=== PATIENT | female | born 1940 | race Caucasian/White ===

== ENCOUNTER → 2018-07-22 15:06 | Outpatient (CLI) | payer MEDICARE, OTHER, SELFPAY ==
--- NOTE | 2018-07-22 | DI.RAD.S_ITS ---
PROCEDURE: XR SHOULDER RT MIN 2V INDICATIONS: Right Shoulder Pain Acute TECHNIQUE: 3 views of the shoulder were acquired. COMPARISON: [facility], [facility], SHOULDER MIN 2VW (RT), 10/26/2013, 8:45. FINDINGS: Bones: No fractures or dislocations. No suspicious bony lesions. Visualized ribs appear intact. Soft tissues: No suspicious soft tissue calcifications. IMPRESSION: Mild a.c. joint osteoarthritis. Dictated by: Oliver Staton M.D. on 07/22/2018 at 15:35 Approved by: Oliver Staton M.D. on 07/22/2018 at 15:35
== END ==
PROVIDERS: PCP Internal Medicine; Visit Provider Internal Medicine
DX: M25.511 Pain in right shoulder (principal); M19.011 Primary osteoarthritis, right shoulder
CPT/HCPCS: 73030

== ENCOUNTER 2018-09-29 12:32 | Inpatient (IN) | payer MEDICARE, OTHER, SELFPAY ==
[2018-09-29] VITALS (8 sets, daily range): BP systolic 107–160; BP diastolic 53–143; PULSE 79–106; RESP 16–20; TEMP 36.8–36.9; O2SAT 79–97; BMI 20.6
--- NOTE | 2018-09-29 12:33 | ED_ITS ---
HPI - Fall <NIRMAL Russ - Last Filed: 09/29/18 21:56> General Chief Complaint: Fall Stated Complaint: GLF Time Seen by Provider: 09/29/18 12:32 Source: patient Mode of arrival: ambulatory Limitations: no limitations History of Present Illness HPI Narrative: 77-year-old female with history of rheumatoid arthritis here for complaint of pain to her left ribcage into her left hip. She had a ground level fall earlier today where she stumbled tripped over some clothes on the ground while she was making the bed landing on her left hip and her left ribcage area. She states she may have hit her head but she states she does not have any pain and she did not hit her head hard. Pain is limited to the left ribcage and to the left hip area. She denies any other injuries or concerns at this point. No loss of conscious. No nausea vomiting. MD complaint: fall Fall from: standing Related Data Home Medications Medication Instructions Recorded Confirmed hydrocodone-acetaminophen 1 tab PO Q4H PRN 09/29/18 09/29/18 methotrexate sodium 0.8 ml IM QWEEK 09/29/18 09/29/18 nitrofurantoin macrocrystal 100 mg PO Q OTHER DAY 09/29/18 09/29/18 nystatin 1 applic TOPICAL BID 09/29/18 09/29/18 omeprazole 40 mg PO DAILY 09/29/18 09/29/18 ondansetron 4 mg PO Q4H PRN 09/29/18 09/29/18 spironolactone 100 mg PO QAM 09/29/18 09/29/18 Allergies Allergy/AdvReac Type Severity Reaction Status Date / Time meperidine [MEPERIDINE] Allergy Unknown VOMITING Verified 09/29/18 13:53 oxycodone [OXYCODONE] AdvReac Unknown NAUSEA Verified 09/29/18 13:53 Review of Systems <NIRMAL Russ - Last Filed: 09/29/18 21:56> Constitutional Denies chills, Denies fever(s), Denies lethargy and Denies weakness Eyes Denies change in vision, Denies eye discharge, Denies irritation and Denies loss of vision ENT Ears, Nose, Mouth, and Throat: Denies change in voice, Denies neck pain and Denies sore throat Cardiovascular Denies chest pain, Denies irregular heart rhythm, Denies lightheadedness, Denies palpitations, Denies dyspnea, Denies dyspnea on exertion and Denies orthopnea Respiratory Denies cough, Denies dyspnea, Denies dyspnea on exertion and Denies wheezing Gastrointestinal Gastrointestinal: Denies abdominal pain, Denies change in bowel habits, Denies diarrhea, Denies nausea and Denies vomiting Genitourinary Denies hematuria, Denies flank pain, Denies urinary incontinence and Denies urinary urgency Musculoskeletal Denies neck pain Comments: Left ribcage pain and left hip pain status post fall Integumentary/Breasts Denies pruritus, Denies erythema, Denies rash and Denies wounds Neurologic Denies confusion, Denies loss of vision and Denies weakness Psychiatric Denies anxiety, Denies confusion, Denies depression, Denies homicidal ideation and Denies suicidal ideation Endocrine Denies palpitations Hematologic/Lymphatic Denies easy bruising Allergic/Immunologic Denies wheezing Exam <NIRMAL Russ - Last Filed: 09/29/18 21:56> Initial Vital Signs Initial Vital Signs: Vital Signs Temperature 98.5 F 09/29/18 12:35 Pulse Rate 98 H 09/29/18 12:35 Respiratory Rate 20 09/29/18 12:35 Blood Pressure 160/143 H 09/29/18 12:35 Pulse Oximetry 97 09/29/18 12:35 Const General: cooperative and well developed Nutritional Appearance: well nourished Orientation: alert, awake, oriented x3 and not confused [facility] Head: normal to inspection, normocephalic and atraumatic Face and sinus: normal facial exam Mouth: oral mucosae normal and moist mucous membranes Eyes Conjunctivae: conjunctivae normal Sclera: sclerae normal Pupils: PERRL EOM: EOM intact bilaterally Neck Neck: normal visual inspection, trachea midline, No lymphadenopathy, No midline deformity and No JVD Lymphatic: No lymphedema Resp Effort & Inspection: normal respiratory effort, able to speak in complete sentences, no respiratory distress and no use of accessory muscles Auscultation: clear to auscultation bilaterally, no rales, no rhonchi and no wheezes Cardio Rate: regular rate Rhythm: regular rhythm Heart Sounds: no click, no gallops, no murmurs and no rubs Pulses: normal peripheral pulses GI Inspection: non-distended Palpation: soft, no hepatosplenomegaly, No guarding, No pulsatile mass and No tender Auscultation: normal bowel sounds Skin General: no rashes or lesions noted, No jaundice and No petechiae Neuro General: alert, oriented x3, gait normal and no focal motor deficits Speech: speech normal Extrem Other: Tenderness on palpation to the left lateral rib cage. No open lesions. No ecchymosis no swelling and no deformities. Left hip and left thigh area with no signs of trauma. No ecchymosis. No swelling. No deformities. Distal sensation is intact. Distal range of motion is intact. Distal pulses are intact. <Shaye Gaona DO - Last Filed: 09/30/18 19:39> Initial Vital Signs Initial Vital Signs: Vital Signs Temperature 98.5 F 09/29/18 12:35 Pulse Rate 98 H 09/29/18 12:35 Respiratory Rate 20 09/29/18 12:35 Blood Pressure 160/143 H 09/29/18 12:35 Pulse Oximetry 97 09/29/18 12:35 Course <NIRMAL Russ - Last Filed: 09/29/18 21:56> Orders Ordered: Acetaminophen (Tylenol) 650 mg PO Q6HR PRN PRN Reason: As Needed for Fever/Mild Pain Hydrocodone Bitart/Acetaminophen ([place] 10/325) 1 tab PO Q4H PRN PRN Reason: Back Pain Last Admin: 09/30/18 15:51 Dose: 1 tab Admin: 09/30/18 11:44 Dose: 1 tab Admin: 09/30/18 04:52 Dose: 1 tab Admin: 09/29/18 20:39 Dose: 1 tab Al Hydrox/Mg Hydrox/Simethicone (Maalox Plus) 30 ml PO Q6HR PRN PRN Reason: Dyspepsia Calcium Carbonate (Tums) 1,000 mg PO Q4HR PRN PRN Reason: Dyspepsia Last Admin: 09/30/18 14:20 Dose: 1,000 mg Heparin Sodium (Porcine) (Heparin) 5,000 unit SUBCUT BID ALDO Last Admin: 09/30/18 09:51 Dose: 5,000 unit Admin: 09/29/18 20:39 Dose: 5,000 unit Hydromorphone HCl (Dilaudid) 1 mg IV Q6HR PRN PRN Reason: Pain, Severe (7-10) Last Admin: 09/30/18 18:17 Dose: 1 mg Admin: 09/30/18 08:30 Dose: 1 mg Admin: 09/30/18 00:35 Dose: 1 mg Admin: 09/29/18 19:00 Dose: 1 mg Magnesium Hydroxide (Milk Of Magnesia) 30 ml PO DAILY PRN PRN Reason: Constipation Methotrexate (Methotrexate) 20 mg IM Sa@0900 [facility] Metoclopramide HCl (Reglan) 5 mg IV Q6HR PRN PRN Reason: Nausea And Vomiting Last Admin: 09/30/18 01:28 Dose: 5 mg Nystatin (Nystatin Ointment) 1 applic TOP BID [facility] Last Admin: 09/30/18 09:51 Dose: 1 applic Admin: 09/29/18 20:40 Dose: 1 applic Ondansetron HCl (Zofran Odt) 4 mg PO Q4H PRN PRN Reason: Nausea Ondansetron HCl (Zofran) 4 mg IV Q8HR PRN PRN Reason: Nausea And Vomiting Last Admin: 09/30/18 18:28 Dose: 4 mg Admin: 09/30/18 08:32 Dose: 4 mg Admin: 09/29/18 22:17 Dose: 4 mg Pantoprazole Sodium (Protonix) 40 mg PO 0600 [facility] Last Admin: 09/30/18 06:11 Dose: 40 mg Sennosides (Senna) 17.2 mg PO BEDTIME PRN PRN Reason: constipation Spironolactone (Aldactone) 100 mg PO DAILY [facility] Last Admin: 09/30/18 09:52 Dose: 100 mg Discontinued Medications Hydromorphone HCl (Dilaudid) 1 mg IV NOW ONE Stop: 09/29/18 13:49 Last Admin: 09/29/18 13:54 Dose: 1 mg Hydromorphone HCl (Dilaudid) 0.5 mg IV NOW ONE Stop: 09/29/18 16:10 Last Admin: 09/29/18 16:11 Dose: 0.5 mg Prochlorperazine (Compazine) 5 mg IV Q6HR PRN PRN Reason: Nausea Vital Signs - 8 hr 09/30/18 12:00 09/30/18 15:43 09/30/18 19:19 Temperature 98.6 F 98.9 F 98.4 F Pulse Rate 81 87 79 Respiratory Rate 16 20 16 Blood Pressure 124/61 122/60 113/62 Pulse Oximetry 97 98 97 <Shaye Gaona, - Last Filed: 09/30/18 19:39> Orders Ordered: Acetaminophen (Tylenol) 650 mg PO Q6HR PRN PRN Reason: As Needed for Fever/Mild Pain Hydrocodone Bitart/Acetaminophen ([place] 10/325) 1 tab PO Q4H PRN PRN Reason: Back Pain Last Admin: 09/30/18 15:51 Dose: 1 tab Admin: 09/30/18 11:44 Dose: 1 tab Admin: 09/30/18 04:52 Dose: 1 tab Admin: 09/29/18 20:39 Dose: 1 tab Al Hydrox/Mg Hydrox/Simethicone (Maalox Plus) 30 ml PO Q6HR PRN PRN Reason: Dyspepsia Calcium Carbonate (Tums) 1,000 mg PO Q4HR PRN PRN Reason: Dyspepsia Last Admin: 09/30/18 14:20 Dose: 1,000 mg Heparin Sodium (Porcine) (Heparin) 5,000 unit SUBCUT BID [facility] Last Admin: 09/30/18 09:51 Dose: 5,000 unit Admin: 09/29/18 20:39 Dose: 5,000 unit Hydromorphone HCl (Dilaudid) 1 mg IV Q6HR PRN PRN Reason: Pain, Severe (7-10) Last Admin: 09/30/18 18:17 Dose: 1 mg Admin: 09/30/18 08:30 Dose: 1 mg Admin: 09/30/18 00:35 Dose: 1 mg Admin: 09/29/18 19:00 Dose: 1 mg Magnesium Hydroxide (Milk Of Magnesia) 30 ml PO DAILY PRN PRN Reason: Constipation Methotrexate (Methotrexate) 20 mg IM Sa@0900 [facility] Metoclopramide HCl (Reglan) 5 mg IV Q6HR PRN PRN Reason: Nausea And Vomiting Last Admin: 09/30/18 01:28 Dose: 5 mg Nystatin (Nystatin Ointment) 1 applic TOP BID [facility] Last Admin: 09/30/18 09:51 Dose: 1 applic Admin: 09/29/18 20:40 Dose: 1 applic Ondansetron HCl (Zofran Odt) 4 mg PO Q4H PRN PRN Reason: Nausea Ondansetron HCl (Zofran) 4 mg IV Q8HR PRN PRN Reason: Nausea And Vomiting Last Admin: 09/30/18 18:28 Dose: 4 mg Admin: 09/30/18 08:32 Dose: 4 mg Admin: 09/29/18 22:17 Dose: 4 mg Pantoprazole Sodium (Protonix) 40 mg PO 0600 [facility] Last Admin: 09/30/18 06:11 Dose: 40 mg Sennosides (Senna) 17.2 mg PO BEDTIME PRN PRN Reason: constipation Spironolactone (Aldactone) 100 mg PO DAILY [facility] Last Admin: 09/30/18 09:52 Dose: 100 mg Discontinued Medications Hydromorphone HCl (Dilaudid) 1 mg IV NOW ONE Stop: 09/29/18 13:49 Last Admin: 09/29/18 13:54 Dose: 1 mg Hydromorphone HCl (Dilaudid) 0.5 mg IV NOW ONE Stop: 09/29/18 16:10 Last Admin: 09/29/18 16:11 Dose: 0.5 mg Prochlorperazine (Compazine) 5 mg IV Q6HR PRN PRN Reason: Nausea Vital Signs - 8 hr 09/30/18 12:00 09/30/18 15:43 09/30/18 19:19 Temperature 98.6 F 98.9 F 98.4 F Pulse Rate 81 87 79 Respiratory Rate 16 20 16 Blood Pressure 124/61 122/60 113/62 Pulse Oximetry 97 98 97 MDM - Fall <NIRMAL Russ - Last Filed: 09/29/18 21:56> Lab Data Result diagrams: 09/30/18 05:24 09/30/18 05:24 Lab Results 09/29/18 09/29/18 09/29/18 Range/Units 13:50 18:02 18:02 WBC 14.1 H (4.5-11.0) X10^3/uL RBC 3.55 L (4.0-5.2) X10^6/uL Hgb 11.3 L (12.0-16.0) g/dL Hct 34.4 L (36-46) % MCV 96.8 (80-100) fL MCH 31.7 (26-34) PG MCHC 32.8 (30-36) % RDW 14.7 (11.6-14.8) % Plt Count 276 (150-400) X10^3/uL Neut % (Auto) 91.7 H (50-75) % Lymph % (Auto) 4.9 L (25-40) % [place] % (Auto) 3.1 (3-14) % Eos % (Auto) 0.0 L (2-4) % Baso % (Auto) 0.3 (0-2) % Neut # (Auto) 53602 H (4237-1805) /uL Lymph # (Auto) 700 L (7106-6820) /uL [place] # (Auto) 400 (0-900) /uL Eos # (Auto) 0 (0-450) /uL Baso # (Auto) 0 (0-100) /uL Sodium 131 L (137-145) mmol/L Potassium 4.1 (3.4-5.1) mmol/L Chloride 96 L (98-107) mmol/L Carbon Dioxide 27 (22-32) mmol/L BUN 7 (7-17) mg/dL Creatinine 0.50 L (0.52-1.04) mg/dL Estimated GFR > 60.0 (>60) mL/min BUN/Creatinine Ratio 14.0 (6-22) Glucose 106 (80-110) mg/dL Calcium 9.0 (8.4-10.2) mg/dL Total Bilirubin (0.2-1.3) mg/dL AST (14-36) IU/L ALT (9-52) IU/L Alkaline Phosphatase (38-126) U/L Total Protein (6.3-8.2) g/dL Albumin (3.5-5.0) g/dL Globulin (1.7-4.1) g/dL Albumin/Globulin Ratio (1.0-2.8) Urine RBC 0-1/hpf (0-5/HPF) Urine WBC 1-5/hpf (0-5/HPF) Ur Squamous Epith Cells 0-1 /hpf Urine Bacteria None seen (None) Ur Culture Indicated? Cult not indicated 09/30/18 09/30/18 Range/Units 05:24 05:24 WBC 8.8 (4.5-11.0) X10^3/uL RBC 3.51 L (4.0-5.2) X10^6/uL Hgb 11.3 L (12.0-16.0) g/dL Hct 33.7 L (36-46) % MCV 96.0 (80-100) fL MCH 32.2 (26-34) PG MCHC 33.6 (30-36) % RDW 15.1 H (11.6-14.8) % Plt Count 264 (150-400) X10^3/uL Neut % (Auto) 78.9 H (50-75) % Lymph % (Auto) 15.2 L (25-40) % [place] % (Auto) 5.5 (3-14) % Eos % (Auto) 0.1 L (2-4) % Baso % (Auto) 0.3 (0-2) % Neut # (Auto) 6900 (5571-0610) /uL Lymph # (Auto) 1300 (9887-8946) /uL [place] # (Auto) 500 (0-900) /uL Eos # (Auto) 0 (0-450) /uL Baso # (Auto) 0 (0-100) /uL Sodium 130 L (137-145) mmol/L Potassium 3.7 (3.4-5.1) mmol/L Chloride 93 L (98-107) mmol/L Carbon Dioxide 28 (22-32) mmol/L BUN 6 L (7-17) mg/dL Creatinine 0.50 L (0.52-1.04) mg/dL Estimated GFR > 60.0 (>60) mL/min BUN/Creatinine Ratio 12.0 (6-22) Glucose 94 (80-110) mg/dL Calcium 8.8 (8.4-10.2) mg/dL Total Bilirubin 0.8 (0.2-1.3) mg/dL AST 25 (14-36) IU/L ALT 34 (9-52) IU/L Alkaline Phosphatase 42 (38-126) U/L Total Protein 6.0 L (6.3-8.2) g/dL Albumin 3.6 (3.5-5.0) g/dL Globulin 2.4 (1.7-4.1) g/dL Albumin/Globulin Ratio 1.5 (1.0-2.8) Urine RBC (0-5/HPF) Urine WBC (0-5/HPF) Ur Squamous Epith Cells Urine Bacteria (None) Ur Culture Indicated? Urine Dip Bedside Urine Glucose Negative Bedside Urine Bilirubin - Negative Bedside Urine Ketone + 15 Urine Specific [place] 1.025 Bedside Urine Occult Blood +/- Bedside Urine pH 5.5 Bedside Urine Protein - Negative Bedside Urine Urobilinogen - Negative Bedside Urine Nitrite - Negative Bedside Urine Leukocytes - Negative Esterase Imaging Data Left hip: Radiologist's impression: [address] [address] XRay Report Signed Patient: Mariely Man MR#: [id number] : 1940 Acct:[id number] Age/Sex: 77 / F Date of Service: 09/29/18 Loc: ED Accession Number: [id number] Procedure: XR hip w pel if done LT 2V Ordering Provider: Jamin Perez PROCEDURE: XR HIP W PEL IF DONE LT 2V INDICATIONS: Pain to left hip and thigh after ground level fall TECHNIQUE: AP pelvis and lateral view of the left hip acquired. COMPARISON: None. FINDINGS: Bones: Patient is status post prior left hip arthroplasty, with hardware components in expected positions. The hip joint appears congruent. There is acute fracture involving left superior and inferior pubic rami with minimal displacement at fracture site. No left hip dislocation. No gross hardware loosening or failure. Degenerative disc disease in visualized lower lumbar spine is seen. Soft tissues: No suspicious soft tissue densities. IMPRESSION: Acute fractures involving left superior and inferior pubic rami. No acute left hip fracture or dislocation. No gross hardware complication. Dictated by: Radu Boyle M.D. on 09/29/2018 at 13:15 Approved by: Radu Boyle M.D. on 09/29/2018 at 13:17 Left femur : Radiologist's impression: [address] [place] [id number] XRay Report Signed Patient: Mariely Man MR#: [id number] : 1940 Acct:[id number] Age/Sex: 77 / F Date of Service: 09/29/18 Loc: ED Accession Number: [id number] Procedure: XR femur LT min 2V Ordering Provider: Jamin Perez PROCEDURE: XR FEMUR LT MIN 2V INDICATIONS: Pain to left hip and left thigh after ground level fall TECHNIQUE: 4 views of the femur were acquired. COMPARISON: None. FINDINGS: Bones: Patient is status post left hip and left knee arthroplasties. No acute left femoral fractures or dislocations. No gross hardware loosening or failure. Fractures involving left superior and inferior pubic rami are seen. No suspicious bony lesions. Soft tissues: No suspicious soft tissue calcifications or masses. IMPRESSION: No acute left femoral fracture or dislocation. No gross hardware complication. Fractures involving left superior and inferior pubic rami. Dictated by: Radu Boyle M.D. on 09/29/2018 at 13:17 Approved by: Radu Boyle M.D. on 09/29/2018 at 13:18 Left ribcage : Radiologist's impression: [place] [address] XRay Report Signed Patient: Mariely Man MR#: [id number] : 1940 Acct:[id number] Age/Sex: 77 / F Date of Service: 09/29/18 Loc: ED Accession Number: [id number] Procedure: XR ribs LT min 3V w CXR1V Ordering Provider: Jamin Perez PROCEDURE: XR RIBS LT MIN 3V W CXR1V INDICATIONS: Pain to left ribcage after ground level fall TECHNIQUE: 2 views of the left ribs were acquired, along with a single view chest. COMPARISON: None. FINDINGS: Surgical changes and devices: None. Bones and chest wall: Subtle cortical irregularity involving left posterior seventh rib is seen suggestive of a nondisplaced rib fracture. No suspicious bony lesions. Overlying soft tissues appear unremarkable. Lungs and pleura: No pleural effusions or pneumothorax. Lungs appear clear. Mediastinum: Mediastinal contours appear normal. Heart size is mildly enlarged. IMPRESSION: Subtle nondisplaced left posterior seventh rib fracture. No focal infiltrate or pneumothorax. Dictated by: Radu Boyle M.D. on 09/29/2018 at 13:19 Approved by: Radu Boyle M.D. on 09/29/2018 at 13:21 MDM Narrative Medical decision making narrative: X-ray of the left ribcage was obtained shows mildly displaced fracture of the 7th rib. No pneumothorax or hemothorax seen. X-ray of the left femur in the left hip were obtained and shows a fracture to the superior inferior ramus of the pelvis no other fracture dislocations are appreciated. Discussed case with orthopedics Dr. Hi who will consult on patient recommends admission to Medicine. Discussed case with Dr. orlando hospitalist who accepted patient. CBC and BMP were ordered and are pending. <Shaye Jimenez, DO - Last Filed: 09/30/18 19:39> Lab Data Lab Results 09/29/18 09/29/18 09/29/18 Range/Units 13:50 18:02 18:02 WBC 14.1 H (4.5-11.0) X10^3/uL RBC 3.55 L (4.0-5.2) X10^6/uL Hgb 11.3 L (12.0-16.0) g/dL Hct 34.4 L (36-46) % MCV 96.8 (80-100) fL MCH 31.7 (26-34) PG MCHC 32.8 (30-36) % RDW 14.7 (11.6-14.8) % Plt Count 276 (150-400) X10^3/uL Neut % (Auto) 91.7 H (50-75) % Lymph % (Auto) 4.9 L (25-40) % [place] % (Auto) 3.1 (3-14) % Eos % (Auto) 0.0 L (2-4) % Baso % (Auto) 0.3 (0-2) % Neut # (Auto) 53593 H (7283-6935) /uL Lymph # (Auto) 700 L (4191-5619) /uL [place] # (Auto) 400 (0-900) /uL Eos # (Auto) 0 (0-450) /uL Baso # (Auto) 0 (0-100) /uL Sodium 131 L (137-145) mmol/L Potassium 4.1 (3.4-5.1) mmol/L Chloride 96 L (98-107) mmol/L Carbon Dioxide 27 (22-32) mmol/L BUN 7 (7-17) mg/dL Creatinine 0.50 L (0.52-1.04) mg/dL Estimated GFR > 60.0 (>60) mL/min BUN/Creatinine Ratio 14.0 (6-22) Glucose 106 (80-110) mg/dL Calcium 9.0 (8.4-10.2) mg/dL Total Bilirubin (0.2-1.3) mg/dL AST (14-36) IU/L ALT (9-52) IU/L Alkaline Phosphatase (38-126) U/L Total Protein (6.3-8.2) g/dL Albumin (3.5-5.0) g/dL Globulin (1.7-4.1) g/dL Albumin/Globulin Ratio (1.0-2.8) Urine RBC 0-1/hpf (0-5/HPF) Urine WBC 1-5/hpf (0-5/HPF) Ur Squamous Epith Cells 0-1 /hpf Urine Bacteria None seen (None) Ur Culture Indicated? Cult not indicated 09/30/18 09/30/18 Range/Units 05:24 05:24 WBC 8.8 (4.5-11.0) X10^3/uL RBC 3.51 L (4.0-5.2) X10^6/uL Hgb 11.3 L (12.0-16.0) g/dL Hct 33.7 L (36-46) % MCV 96.0 (80-100) fL MCH 32.2 (26-34) PG MCHC 33.6 (30-36) % RDW 15.1 H (11.6-14.8) % Plt Count 264 (150-400) X10^3/uL Neut % (Auto) 78.9 H (50-75) % Lymph % (Auto) 15.2 L (25-40) % [place] % (Auto) 5.5 (3-14) % Eos % (Auto) 0.1 L (2-4) % Baso % (Auto) 0.3 (0-2) % Neut # (Auto) 6900 (5440-5616) /uL Lymph # (Auto) 1300 (5153-7040) /uL [place] # (Auto) 500 (0-900) /uL Eos # (Auto) 0 (0-450) /uL Baso # (Auto) 0 (0-100) /uL Sodium 130 L (137-145) mmol/L Potassium 3.7 (3.4-5.1) mmol/L Chloride 93 L (98-107) mmol/L Carbon Dioxide 28 (22-32) mmol/L BUN 6 L (7-17) mg/dL Creatinine 0.50 L (0.52-1.04) mg/dL Estimated GFR > 60.0 (>60) mL/min BUN/Creatinine Ratio 12.0 (6-22) Glucose 94 (80-110) mg/dL Calcium 8.8 (8.4-10.2) mg/dL Total Bilirubin 0.8 (0.2-1.3) mg/dL AST 25 (14-36) IU/L ALT 34 (9-52) IU/L Alkaline Phosphatase 42 (38-126) U/L Total Protein 6.0 L (6.3-8.2) g/dL Albumin 3.6 (3.5-5.0) g/dL Globulin 2.4 (1.7-4.1) g/dL Albumin/Globulin Ratio 1.5 (1.0-2.8) Urine RBC (0-5/HPF) Urine WBC (0-5/HPF) Ur Squamous Epith Cells Urine Bacteria (None) Ur Culture Indicated? Urine Dip Bedside Urine Glucose Negative Bedside Urine Bilirubin - Negative Bedside Urine Ketone + 15 Urine Specific [place] 1.025 Bedside Urine Occult Blood +/- Bedside Urine pH 5.5 Bedside Urine Protein - Negative Bedside Urine Urobilinogen - Negative Bedside Urine Nitrite - Negative Bedside Urine Leukocytes - Negative Esterase Discharge Plan Departure Patient Disposition: Admitted As Inpatient Clinical Impression: Fracture of ramus of left pubis, Closed rib fracture Discharge Date/Time: 09/29/18 17:36 Interventions: ED Discharge Assessment Last Done: 09/29/18 17:35 Admit Date/Time: 09/29/18 16:37 Admit Provider: Emperatriz Orlando <Shaye Gaona DO - Last Filed: 09/30/18 19:39> Cosign ED Attending Kathy Attestation: I was immediately available in the department for consultation. Documentation has been reviewed. I agree with assessment and plan.
--- NOTE | 2018-09-29 12:43 | DI.RAD.S_ITS ---
PROCEDURE: XR HIP W PEL IF DONE LT 2V INDICATIONS: Pain to left hip and thigh after ground level fall TECHNIQUE: AP pelvis and lateral view of the left hip acquired. COMPARISON: None. FINDINGS: Bones: Patient is status post prior left hip arthroplasty, with hardware components in expected positions. The hip joint appears congruent. There is acute fracture involving left superior and inferior pubic rami with minimal displacement at fracture site. No left hip dislocation. No gross hardware loosening or failure. Degenerative disc disease in visualized lower lumbar spine is seen. Soft tissues: No suspicious soft tissue densities. IMPRESSION: Acute fractures involving left superior and inferior pubic rami. No acute left hip fracture or dislocation. No gross hardware complication. Dictated by: Radu Boyle M.D. on 09/29/2018 at 13:15 Approved by: Radu Boyle M.D. on 09/29/2018 at 13:17
--- NOTE | 2018-09-29 12:43 | DI.RAD.S_ITS ---
PROCEDURE: XR FEMUR LT MIN 2V INDICATIONS: Pain to left hip and left thigh after ground level fall TECHNIQUE: 4 views of the femur were acquired. COMPARISON: None. FINDINGS: Bones: Patient is status post left hip and left knee arthroplasties. No acute left femoral fractures or dislocations. No gross hardware loosening or failure. Fractures involving left superior and inferior pubic rami are seen. No suspicious bony lesions. Soft tissues: No suspicious soft tissue calcifications or masses. IMPRESSION: No acute left femoral fracture or dislocation. No gross hardware complication. Fractures involving left superior and inferior pubic rami. Dictated by: Radu Boyle M.D. on 09/29/2018 at 13:17 Approved by: Radu Boyle M.D. on 09/29/2018 at 13:18
--- NOTE | 2018-09-29 12:43 | DI.RAD.S_ITS ---
PROCEDURE: XR RIBS LT MIN 3V W CXR1V INDICATIONS: Pain to left ribcage after ground level fall TECHNIQUE: 2 views of the left ribs were acquired, along with a single view chest. COMPARISON: None. FINDINGS: Surgical changes and devices: None. Bones and chest wall: Subtle cortical irregularity involving left posterior seventh rib is seen suggestive of a nondisplaced rib fracture. No suspicious bony lesions. Overlying soft tissues appear unremarkable. Lungs and pleura: No pleural effusions or pneumothorax. Lungs appear clear. Mediastinum: Mediastinal contours appear normal. Heart size is mildly enlarged. IMPRESSION: Subtle nondisplaced left posterior seventh rib fracture. No focal infiltrate or pneumothorax. Dictated by: Radu Boyle M.D. on 09/29/2018 at 13:19 Approved by: Radu Boyle M.D. on 09/29/2018 at 13:21
--- NOTE | 2018-09-29 13:38 | PC.NURSE ---
tripped over bedding, landing on the left side/hip. denies loc, denies neck or back pain. obtained left rib pain, hurts with deep breathing, left hip, non wt bearings. limited range of motion due to pain, distal cms intact.
[2018-09-29] MEDS: HYDROMORPHONE 1 MG INJ IV ×2 (13:54→19:00)
--- NOTE | 2018-09-29 13:56 | PC.NURSE ---
medicated with dilaudid, pt states, its ok she had it before
--- NOTE | 2018-09-29 14:00 | PC.NURSE ---
pt understanding pelvic fx with admission, pt requesting osei insertion.
[2018-09-29 14:14] LABS: Bacteria Urine None Seen
[2018-09-29 14:23] LABS: RBC Urine 0-1/HPF (0-5/HPF); Squamous Epithelial Cell Urine 0-1 /HPF; WBC Urine 1-5/HPF (0-5/HPF)
[2018-09-29 14:24] LABS: Culture Indicated Urine Cult Not Indicated
[2018-09-29] MEDS: HYDROMORPHONE 1 MG INJ 0.5 MG IV (16:11)
--- NOTE | 2018-09-29 17:12 | PM.HP.1 ---
History of Present Illness Date Patient Seen: 09/29/18 Chief complaint: GLF Narrative: Mariely Man is a 77-year-old female with a past medical history significant for rheumatoid arthritis on methotrexate who presented to [facility] after a ground level fall complaining of left-sided rib cage and hip pain. She reports that earlier today she tripped and fell backward over her bed skirt while making her bed. She landed on her left side and was in excrutiating pain to the extent she could not move or get up. Her found her and called 911. She reports she hit her head but did not lose consciousness. She currently endorses mild headache. She denies vision changes, lightheadedness, dizziness, slurring of speech, numbness or tingling, shortness of breath, chest pain, abdominal pain, dysuria, diarrhea, or constipation. She is actively vomiting while in the room despite antiemetic for nausea. She has broken several bones including left hip previously. She rates her pain related to her hip and ribcage without movement a +5/10 and with movement a +10/10. Patient History Medical History GERD (gastroesophageal reflux disease) (Acute) Peripheral edema (Acute) Rheumatoid arthritis (Acute) Surgical History History of hand surgery (Acute) History of total left knee replacement (Acute) History of total right knee replacement (Acute) Status post total hip replacement, left (Acute) Status post wrist surgery (Acute) Family & Social History Safety & Behavioral: Feels Safe in Current Yes Environment Been Physically Hurt or No Threatened By a Person The patient is x 49 years. They have 2 children, a son and a daughther. Tobacco & Substance use: Smoking Status Former smoker, 1ppd x 10 years. Quit 1974. Substance Use Type does not use Meds Home Medications Medication Instructions Recorded Confirmed Type hydrocodone-acetaminophen 1 tab PO Q4H PRN 09/29/18 09/29/18 History methotrexate sodium 0.8 ml IM QWEEK 09/29/18 09/29/18 History nitrofurantoin macrocrystal 100 mg PO Q OTHER DAY 09/29/18 09/29/18 History nystatin 1 applic TOPICAL BID 09/29/18 09/29/18 History omeprazole 40 mg PO DAILY 09/29/18 09/29/18 History ondansetron 4 mg PO Q4H PRN 09/29/18 09/29/18 History spironolactone 100 mg PO QAM 09/29/18 09/29/18 History Allergies Allergy/AdvReac Type Severity Reaction Status Date / Time meperidine [MEPERIDINE] Allergy Unknown VOMITING Verified 09/29/18 13:53 oxycodone [OXYCODONE] AdvReac Unknown NAUSEA Verified 09/29/18 13:53 Review of Systems Review of Systems A 10 system comprehensive review of systems was conducted with the patient and found to be negative except as above in the History of Present Illness. Exam Vital Signs (past 8 hours): - 09/29/18 12:35 09/29/18 14:00 09/29/18 14:30 Temperature 98.5 F Pulse Rate 98 H 101 H 95 H Respiratory Rate 20 16 16 Blood Pressure [Left Arm] 160/143 H 107/61 117/53 L Pulse Oximetry 97 97 95 09/29/18 15:10 09/29/18 15:30 Temperature Pulse Rate 105 H 106 H Respiratory Rate 18 16 Blood Pressure [Left Arm] 118/62 116/62 Pulse Oximetry 93 95 Oxygen Delivery Method Room Air Narrative Exam Narrative: General: Elderly female lying bed, appears uncomfortable, mild distress, well-developed, well-nourished, appropriately interactive when not vomiting. HEENT: Normocephalic, atraumatic. External ears without defect. Pupils equal, round, and reactive to light. Anicteric sclerae, moist conjunctivae, and no lid lag. Neck: Supple with full range of motion. No jugular venous distension. No bruits. No lymphadenopathy or thyromegaly. Cardiovascular: Regular rate and rhythm without murmurs, rubs, or gallops appreciated. Pulmonary: Clear to auscultation bilaterally without crackles, wheezes, or rhonchi. Normal respiratory effort with no use of accessory muscles. Abdomen: Soft, bowel sounds present, tender on left side, patient voluntarily guards, nondistended. No hepatosplenomegaly or masses appreciated. Extremities: No clubbing, cyanosis, or edema. Due to significant pain did not try to mobilize. Pain over left pubic rami/hip and left rib cage. Skin: Normal temperature, turgor, and texture; no rash, ulcers, or subcutaneous nodules appreciated. Neurological: Cranial nerves grossly intact. Psychiatric: Normal mood and affect. Alert and oriented to person, place, and time. Objective Labs Result Diagrams: 09/29/18 18:02 09/29/18 18:02 Labs: Laboratory Results - last 24 hr 09/29/18 13:50 Urine RBC 0-1/hpf Urine WBC 1-5/hpf Ur Squamous Epith Cells 0-1 /hpf Urine Bacteria None seen Ur Culture Indicated? Cult not indicated Assessment & Plan Plan: Assessment/Plan Narrative: Mariely Man is a 77-year-old female with a past medical history significant for rheumatoid arthritis who presented to [facility] after a ground level fall complaining of left-sided rib cage and hip pain. 1. Acute left superior and inferior pubic rami fracture and 7th posterior rib fracture, present on admission. Active. -Secondary to mechanical ground level fall. -Left hip x-ray demonstrates acute fracture involving left superior and inferior pubic rami with minimal displacement at fracture site. -Left rib x-ray demonstrated subtle nondisplaced left posterior seventh rib fracture. No focal infiltrate or pneumothorax. -Orthopedic surgery was consulted by ED physician. We appreciate their time and recommendations. -Ordered hydromorphone 1 every 6 hours as needed for severe pain. Continued home hydrocodone 10-325 mg every 4 hr as needed for moderate pain. May need to adjust frequency to control pain. -Ordered Zofran as needed for nausea. -Ordered PT and OT evaluation, pending. 2. Acute anemia and leukoctosis, present on admission. Active. -Secondary to mechanical GLF. -No overt signs of bleeding or infection (WBC likely stress response. -Watch mentation closely overnight. Low threshold to CT brain as patient hit head without LOC or CT hip if thought to be bleeding. -Montor CBC daily. 3. Rheumatoid arthritis, chronic, present on admission. Stable. -Continue home methotrexate 0.8 mg IM once weekly on Saturdays. 4. GERD, chronic, present on admission. Stable. -Continue home omeprazole 40 mg daily. 5. Peripheral edema, present on admission. Stable. -Mild lower extremity edema to pretibial area bilaterally. The patient reports the edema has been worked up extensively and has been considered idiopathic. No history of CHF. Patient is admitted under inpatient status with expected length of stay greater than 2 midnights due to severity of presenting symptoms, risk of adverse event, and complexity of treatment plan.
[2018-09-29 18:08] LABS: Add Manual Diff / Slide Review NO; Basophils Absolute Auto 0 /uL (0-100); Basophils Percent Auto 0.3 % (0-2); Eosinophils Absolute Auto 0 /uL (0-450); Hematocrit 34.4 % (36-46); Hemoglobin 11.3 g/dL (12.0-16.0); Lymphocytes Absolute Auto 700 /uL (1100-4500); Lymphocytes Percent Auto 4.9 % (25-40); Mean Corpuscular HGB Conc 32.8 % (30-36); Mean Corpuscular Hemoglobin 31.7 PG (26-34); Mean Corpuscular Volume 96.8 fL (80-100); Monocytes Absolute Auto 400 /uL (0-900); Monocytes Percent Auto 3.1 % (3-14); Neutrophils Absolute Auto 13000 /uL (1500-7000); Neutrophils Percent Auto 91.7 % (50-75); Platelet Count 276 X10^3/uL (150-400); Red Blood Cell Count 3.55 X10^6/uL (4.0-5.2); Red Cell Distribution Width 14.7 % (11.6-14.8); White Blood Cell Count 14.1 X10^3/uL (4.5-11.0)
[2018-09-29 18:19] LABS: Blood Urea Nitrogen 7 mg/dL (7-17); Carbon Dioxide 27 mmol/L (22-32); Chloride 96 mmol/L (98-107); Estimated Glomerular Filt Rate > 60.0 mL/min (>60); Glucose 106 mg/dL (80-110); HEMOLYSIS < 15 (0-50); Potassium 4.1 mmol/L (3.4-5.1); Sodium 131 mmol/L (137-145)
[2018-09-29] MEDS: HYDROCODONE/ACET 10/325 TABLET 1 TAB PO (20:39)
[2018-09-29] MEDS: HEPARIN 5,000 UNIT/ML VIAL 5000 UNIT SUBCUT (20:39)
[2018-09-29] MEDS: NYSTATIN OINTMENT 15 APPLIC/TUBE OINT...G. TOP (20:40)
--- NOTE | 2018-09-29 21:29 | P.CONS_ITS ---
History of Present Illness Date Patient Seen: 09/29/18 Time Patient Seen: 21:21 Chief complaint: GLF Reason for consult: Pelvic pain after ground level fall Requesting provider: Shaye Gaona Narrative: This is a 77-year-old female with a history of a prior left hip cemented unipolar for femoral neck fracture who also has a history of rheumatoid arthritis who tripped over some clothing today and noted the acute onset of left hip pain and pelvic pain as well as some posterior rib pain. She notes she was having difficulty ambulating and putting weight on her left leg. She was able to ambulate well after her left hip unipolar. She has a history of rheumatoid arthritis which is been relatively stable on medications. [facility] Medical History GERD (gastroesophageal reflux disease) (Acute) Rheumatoid arthritis (Acute) Surgical History History of total left knee replacement (Acute) Status post total hip replacement, left (Acute) Social History household members: spouse Smoking Status: Never smoker alcohol intake: never Meds Home Medications Medication Instructions Recorded Confirmed Type hydrocodone-acetaminophen 1 tab PO Q4H PRN 09/29/18 09/29/18 History methotrexate sodium 0.8 ml IM QWEEK 09/29/18 09/29/18 History nitrofurantoin macrocrystal 100 mg PO Q OTHER DAY 09/29/18 09/29/18 History nystatin 1 applic TOPICAL BID 09/29/18 09/29/18 History omeprazole 40 mg PO DAILY 09/29/18 09/29/18 History ondansetron 4 mg PO Q4H PRN 09/29/18 09/29/18 History spironolactone 100 mg PO QAM 09/29/18 09/29/18 History Allergies Allergy/AdvReac Type Severity Reaction Status Date / Time meperidine [MEPERIDINE] Allergy Unknown VOMITING Verified 09/29/18 13:53 oxycodone [OXYCODONE] AdvReac Unknown NAUSEA Verified 09/29/18 13:53 Review of Systems Review of Systems She was not dizzy prior to her fall, she denies a history of recent chest pain but does note rib pain, she has not any recent problems with shortness of breath cough or cold, bowel movements are working well she denies other recent review of systems Exam Vital Signs (past 8 hours): - 09/29/18 14:00 09/29/18 14:30 09/29/18 15:10 Temperature Pulse Rate 101 H 95 H 105 H Respiratory Rate 16 16 18 Blood Pressure Blood Pressure [Left Arm] 107/61 117/53 L 118/62 Pulse Oximetry 97 95 93 09/29/18 15:30 09/29/18 18:09 Temperature 98.3 F Pulse Rate 106 H 79 Respiratory Rate 16 18 Blood Pressure 130/68 Blood Pressure [Left Arm] 116/62 Pulse Oximetry 95 79 L Oxygen Delivery Method Room Air Narrative Exam Narrative: HEENT is benign neck is supple, lungs are clear cor is regular rate and rhythm examination of her abdomen is benign pelvis she is tender to palpation on the left side over the superior and inferior pubic rami but her pelvis is stable, she has pain with range of motion on her left hip on with mild to moderate tenderness over the greater trochanter, there is no crepitation with range of motion into the left hip, she is neurologically intact distally into her left foot and ankle, her chest on the left is tender to palpation but her lungs are clear right upper extremity shows Kinesio tape in place and some weakness of external rotation against resistance and active forward flexion Objective Labs Result Diagrams: 09/29/18 18:02 09/29/18 18:02 Labs: Laboratory Results - last 24 hr 09/29/18 09/29/18 09/29/18 13:50 18:02 18:02 WBC 14.1 H RBC 3.55 L Hgb 11.3 L Hct 34.4 L MCV 96.8 MCH 31.7 MCHC 32.8 RDW 14.7 Plt Count 276 Neut % (Auto) 91.7 H Lymph % (Auto) 4.9 L [place] % (Auto) 3.1 Eos % (Auto) 0.0 L Baso % (Auto) 0.3 Neut # (Auto) 67709 H Lymph # (Auto) 700 L [place] # (Auto) 400 Eos # (Auto) 0 Baso # (Auto) 0 Sodium 131 L Potassium 4.1 Chloride 96 L Carbon Dioxide 27 BUN 7 Creatinine 0.50 L Estimated GFR > 60.0 BUN/Creatinine Ratio 14.0 Glucose 106 Calcium 9.0 Urine RBC 0-1/hpf Urine WBC 1-5/hpf Ur Squamous Epith Cells 0-1 /hpf Urine Bacteria None seen Ur Culture Indicated? Cult not indicated Assessment & Plan Plan: Assessment/Plan Narrative: Her x-rays show a left hip superior and inferior pubic rami fracture and the prior left hip unipolar with no evidence of displacement acetabular involvement or femoral fracture. Chest x-ray shows possible posterior rib fracture on the left. She also has a history of rheumatoid arthritis. She has been recently diagnosed with a right shoulder partial rotator cuff tear. I think it is okay to mobilize her with physical therapy she can be weight-bearing as tolerated on the left lower extremity and on the right upper extremity. She has multiple medical problems and multiple orthopedic problems including rheumatoid arthritis in new pelvic fracture a right [place] rotator cuff tear and a prior left hip unipolar. Anticipate she will require physical therapy to work on progressive mobilization and to gain adequate stability and safety for ultimate discharge.
[2018-09-29] MEDS: ONDANSETRON 4 MG/2 ML INJ IV (22:17)
[2018-09-30] VITALS (8 sets, daily range): BP systolic 113–124; BP diastolic 60–68; PULSE 79–91; RESP 14–20; TEMP 36.8–37.3; O2SAT 97–98
[2018-09-30] MEDS: HYDROMORPHONE 1 MG INJ IV ×3 (00:35→18:17)
[2018-09-30] MEDS: METOCLOPRAMIDE 10 MG/2 ML INJ 5 MG IV (01:28)
--- NOTE | 2018-09-30 04:27 | PC.NURSE ---
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 Pt also medicated with prn Dilaudid for pain. Mayo patent. IV noted to be in right forearm, SL. 0415 Pt arouses easily when staff in the room. Pt asked if she is having pain or nausea at this time and pt states I am ok right now and denies need for intervention. Pt is not eager to move much in bed but assisted with slight reposition to offload pressure. Bed alarm on.
[2018-09-30] MEDS: HYDROCODONE/ACET 10/325 TABLET 1 TAB PO ×4 (04:52→22:05)
[2018-09-30 05:59] LABS: Add Manual Diff / Slide Review NO; Basophils Absolute Auto 0 /uL (0-100); Basophils Percent Auto 0.3 % (0-2); Eosinophils Absolute Auto 0 /uL (0-450); Eosinophils Percent Auto 0.1 % (2-4); Hematocrit 33.7 % (36-46); Hemoglobin 11.3 g/dL (12.0-16.0); Lymphocytes Absolute Auto 1300 /uL (1100-4500); Lymphocytes Percent Auto 15.2 % (25-40); Mean Corpuscular HGB Conc 33.6 % (30-36); Mean Corpuscular Hemoglobin 32.2 PG (26-34); Monocytes Absolute Auto 500 /uL (0-900); Monocytes Percent Auto 5.5 % (3-14); Neutrophils Absolute Auto 6900 /uL (1500-7000); Neutrophils Percent Auto 78.9 % (50-75); Platelet Count 264 X10^3/uL (150-400); Red Blood Cell Count 3.51 X10^6/uL (4.0-5.2); Red Cell Distribution Width 15.1 % (11.6-14.8); White Blood Cell Count 8.8 X10^3/uL (4.5-11.0)
[2018-09-30 06:08] LABS: Alanine Aminotransferase 34 IU/L (9-52); Albumin 3.6 g/dL (3.5-5.0); Albumin Globulin Ratio 1.5 (1.0-2.8); Alkaline Phosphatase 42 U/L (38-126); Aspartate Aminotransferase 25 IU/L (14-36); Bilirubin Total 0.8 mg/dL (0.2-1.3); Blood Urea Nitrogen 6 mg/dL (7-17); Calcium 8.8 mg/dL (8.4-10.2); Carbon Dioxide 28 mmol/L (22-32); Chloride 93 mmol/L (98-107); Estimated Glomerular Filt Rate > 60.0 mL/min (>60); Globulin 2.4 g/dL (1.7-4.1); Glucose 94 mg/dL (80-110); HEMOLYSIS < 15 (0-50); Potassium 3.7 mmol/L (3.4-5.1); Sodium 130 mmol/L (137-145)
[2018-09-30] MEDS: PANTOPRAZOLE 40 MG TABLET PO (06:11)
--- NOTE | 2018-09-30 07:31 | P.PN_ITS ---
Subjective Date Patient Seen: 09/30/18 Interval history: Mariely Man is a 77-year-old female with a past medical history significant for rheumatoid arthritis on methotrexate who presented to [facility] after a ground level fall complaining of left-sided rib cage and hip pain found to have left posterior 7th rib fracture and left superior and inferior pubic rami fracture and admitted for pain management and mobilization. Overnight: The patient was stable. She continued to have significant pain related to left superior and inferior pubic rami fracture controlled with IV pain medication. The patient is resting in bed comfortably and in no acute distress. She continues to endorse pelvic pain while resting that she rates a +5/10 in severity. Her pelvic pain level increases to a +9/10 with movement. She reports her pain is better controlled today with pain medication. She was up to bedside commode with physical therapy today. She denies headache, shortness of breath, chest pain, abdominal pain, nausea, vomiting, fever, chills, dysuria , diarrhea or constipation. She is voiding and eliminating without difficulty. Exam Vital Signs (past 8 hours): - 09/30/18 00:25 09/30/18 06:00 Temperature 98.6 F 98.3 F Pulse Rate 91 H 88 Respiratory Rate 16 18 Blood Pressure 118/63 123/63 Pulse Oximetry 97 98 Oxygen Delivery Method Room Air Oxygen Flow Rate 0 Narrative Exam Narrative: General: Elderly female lying bed, appears uncomfortable, mild distress, well- developed, well-nourished, appropriately interactive when not vomiting. HEENT: Normocephalic, atraumatic. External ears without defect. Pupils equal, round, and reactive to light. Anicteric sclerae, moist conjunctivae, and no lid lag. Neck: Supple with full range of motion. No jugular venous distension. No bruits. No lymphadenopathy or thyromegaly. Cardiovascular: Regular rate and rhythm without murmurs, rubs, or gallops appreciated. Pulmonary: Clear to auscultation bilaterally without crackles, wheezes, or rhonchi. Normal respiratory effort with no use of accessory muscles. Abdomen: Soft, bowel sounds present, no longer tender on left side, nondistended. Suprapubic/pelvic pain with palpation. No hepatosplenomegaly or masses appreciated. Extremities: No clubbing, cyanosis, or edema. Skin: Normal temperature, turgor, and texture; no rash, ulcers, or subcutaneous nodules appreciated. Neurological: Cranial nerves grossly intact. Psychiatric: Normal mood and affect. Alert and oriented to person, place, and time. Objective Labs Result Diagrams: 09/30/18 05:24 09/30/18 05:24 Labs: Laboratory Results - last 24 hr 09/29/18 09/29/18 09/29/18 13:50 18:02 18:02 WBC 14.1 H RBC 3.55 L Hgb 11.3 L Hct 34.4 L MCV 96.8 MCH 31.7 MCHC 32.8 RDW 14.7 Plt Count 276 Neut % (Auto) 91.7 H Lymph % (Auto) 4.9 L [place] % (Auto) 3.1 Eos % (Auto) 0.0 L Baso % (Auto) 0.3 Neut # (Auto) 16145 H Lymph # (Auto) 700 L [place] # (Auto) 400 Eos # (Auto) 0 Baso # (Auto) 0 Sodium 131 L Potassium 4.1 Chloride 96 L Carbon Dioxide 27 BUN 7 Creatinine 0.50 L Estimated GFR > 60.0 BUN/Creatinine Ratio 14.0 Glucose 106 Calcium 9.0 Total Bilirubin AST ALT Alkaline Phosphatase Total Protein Albumin Globulin Albumin/Globulin Ratio Urine RBC 0-1/hpf Urine WBC 1-5/hpf Ur Squamous Epith Cells 0-1 /hpf Urine Bacteria None seen Ur Culture Indicated? Cult not indicated 09/30/18 09/30/18 05:24 05:24 WBC 8.8 RBC 3.51 L Hgb 11.3 L Hct 33.7 L MCV 96.0 MCH 32.2 MCHC 33.6 RDW 15.1 H Plt Count 264 Neut % (Auto) 78.9 H Lymph % (Auto) 15.2 L [place] % (Auto) 5.5 Eos % (Auto) 0.1 L Baso % (Auto) 0.3 Neut # (Auto) 6900 Lymph # (Auto) 1300 [place] # (Auto) 500 Eos # (Auto) 0 Baso # (Auto) 0 Sodium 130 L Potassium 3.7 Chloride 93 L Carbon Dioxide 28 BUN 6 L Creatinine 0.50 L Estimated GFR > 60.0 BUN/Creatinine Ratio 12.0 Glucose 94 Calcium 8.8 Total Bilirubin 0.8 AST 25 ALT 34 Alkaline Phosphatase 42 Total Protein 6.0 L Albumin 3.6 Globulin 2.4 Albumin/Globulin Ratio 1.5 Urine RBC Urine WBC Ur Squamous Epith Cells Urine Bacteria Ur Culture Indicated? Assessment & Plan Plan: Assessment/Plan Narrative: Mariely Man is a 77-year-old female with a past medical history significant for rheumatoid arthritis on methotrexate who presented to [facility] after a ground level fall complaining of left-sided rib cage and hip pain found to have left posterior 7th rib fracture and left superior and inferior pubic rami fracture and admitted for pain management and mobilization. 1. Acute left superior and inferior pubic rami fracture and 7th posterior rib fracture, present on admission. Active. -Secondary to mechanical ground level fall. -Left hip x-ray demonstrates acute fracture involving left superior and inferior pubic rami with minimal displacement at fracture site. -Left rib x-ray demonstrated subtle nondisplaced left posterior seventh rib fracture. No focal infiltrate or pneumothorax. -Orthopedic surgery was consulted by ED physician. We appreciate their time and recommendations. -Ordered hydromorphone 1 every 6 hours as needed for severe pain. Continued home hydrocodone 10-325 mg every 4 hr as needed for moderate pain. May need to adjust frequency to control pain. -Ordered Zofran as needed for nausea. -Continue PT and OT evaluation and treatment. 2. Acute anemia and leukoctosis, present on admission. Active. -Secondary to mechanical GLF. -No overt signs of bleeding or infection (WBC likely stress response. -Watch mentation closely overnight. Low threshold to CT brain as patient hit head without LOC or CT hip if thought to be bleeding. -Montor CBC daily. 3. Rheumatoid arthritis, chronic, present on admission. Stable. -Continue home methotrexate 0.8 mg IM once weekly on Saturdays. 4. GERD, chronic, present on admission. Stable. -Continue home omeprazole 40 mg daily. 5. Peripheral edema, present on admission. Stable. -Mild lower extremity edema to pretibial area bilaterally. The patient reports the edema has been worked up extensively and has been considered idiopathic. No history of CHF. Disposition: Patient likely to discharge in 1-2 days depending upon pain control and mobilization. Quality VTE Deep Vein Thrombosis/Pulmonary Embolism Present on Admission: No
[2018-09-30] MEDS: ONDANSETRON 4 MG/2 ML INJ IV ×2 (08:32→18:28)
--- NOTE | 2018-09-30 08:42 | P.PN_ITS ---
Subjective Date Patient Seen: 09/30/18 Time Patient Seen: 08:40 Interval history: Hospital day 2. History of ground level fall and sustained left superior and inferior pubic ramus fracture. Orthopedic consult done yesterday with Dr. Hi. Nonsurgical treatment. She is weight-bearing as tolerated. Work with physical therapy. Does have Mayo catheter in place. Prescribed [place] for pain. Patient lives at home with her . Exam Vital Signs (past 8 hours): - 09/30/18 06:00 09/30/18 08:00 Temperature 98.3 F 98.8 F Pulse Rate 88 86 Respiratory Rate 18 14 Blood Pressure 123/63 121/68 Pulse Oximetry 98 97 Oxygen Delivery Method Room Air Oxygen Flow Rate 0 Narrative Exam Narrative: Alert, oriented no acute distress resting in bed. Legs. No calf pain or swelling. Pulses symmetrical. Objective Labs Result Diagrams: 09/30/18 05:24 09/30/18 05:24 Labs: Laboratory Results - last 24 hr 09/29/18 09/29/18 09/29/18 13:50 18:02 18:02 WBC 14.1 H RBC 3.55 L Hgb 11.3 L Hct 34.4 L MCV 96.8 MCH 31.7 MCHC 32.8 RDW 14.7 Plt Count 276 Neut % (Auto) 91.7 H Lymph % (Auto) 4.9 L [place] % (Auto) 3.1 Eos % (Auto) 0.0 L Baso % (Auto) 0.3 Neut # (Auto) 44686 H Lymph # (Auto) 700 L [place] # (Auto) 400 Eos # (Auto) 0 Baso # (Auto) 0 Sodium 131 L Potassium 4.1 Chloride 96 L Carbon Dioxide 27 BUN 7 Creatinine 0.50 L Estimated GFR > 60.0 BUN/Creatinine Ratio 14.0 Glucose 106 Calcium 9.0 Total Bilirubin AST ALT Alkaline Phosphatase Total Protein Albumin Globulin Albumin/Globulin Ratio Urine RBC 0-1/hpf Urine WBC 1-5/hpf Ur Squamous Epith Cells 0-1 /hpf Urine Bacteria None seen Ur Culture Indicated? Cult not indicated 09/30/18 09/30/18 05:24 05:24 WBC 8.8 RBC 3.51 L Hgb 11.3 L Hct 33.7 L MCV 96.0 MCH 32.2 MCHC 33.6 RDW 15.1 H Plt Count 264 Neut % (Auto) 78.9 H Lymph % (Auto) 15.2 L [place] % (Auto) 5.5 Eos % (Auto) 0.1 L Baso % (Auto) 0.3 Neut # (Auto) 6900 Lymph # (Auto) 1300 [place] # (Auto) 500 Eos # (Auto) 0 Baso # (Auto) 0 Sodium 130 L Potassium 3.7 Chloride 93 L Carbon Dioxide 28 BUN 6 L Creatinine 0.50 L Estimated GFR > 60.0 BUN/Creatinine Ratio 12.0 Glucose 94 Calcium 8.8 Total Bilirubin 0.8 AST 25 ALT 34 Alkaline Phosphatase 42 Total Protein 6.0 L Albumin 3.6 Globulin 2.4 Albumin/Globulin Ratio 1.5 Urine RBC Urine WBC Ur Squamous Epith Cells Urine Bacteria Ur Culture Indicated? Assessment & Plan Plan: Assessment/Plan Narrative: Assessment: Left superior and inferior pubic ramus fracture. Plan: Patient will work with physical therapy. Observe for improvement and pelvic pain. Anticipate discharge home once she is stable and safe by PT. DC Mayo catheter when she is more active. Quality VTE Deep Vein Thrombosis/Pulmonary Embolism Present on Admission: No
[2018-09-30] MEDS: NYSTATIN OINTMENT 15 APPLIC/TUBE OINT...G. TOP (09:51)
[2018-09-30] MEDS: HEPARIN 5,000 UNIT/ML VIAL 5000 UNIT SUBCUT ×2 (09:51→22:30)
[2018-09-30] MEDS: SPIRONOLACTONE 50 MG TABLET 100 MG PO (09:52)
--- NOTE | 2018-09-30 12:50 | PC.NURSE ---
Patient worked with P.T. for first time this morning, able to get up to BS to attempt BM, but not able to tolerate further exercise/chair due to pain limitations. Mayo remains intact, draining clear yellow urine. Patient continues with low appetite, mild nausea reported this morning, continue to follow. Continue with pain management, with medications as prescribed. Bed alarm on for safety, call light within reach. continue to monitor.
--- NOTE | 2018-09-30 12:54 | PT.IIE ---
Current Diagnoses Fracture of one rib, unspecified side, initial encounter for closed fracture (09/29/18) Other specified fracture of left pubis, initial encounter for closed fracture (09/29/18) Surgical History (Last Updated 09/29/18 @ 22:02 by Emperatriz Montenegro DO) History of hand surgery (Acute) History of total left knee replacement (Acute) History of total right knee replacement (Acute) Status post total hip replacement, left (Acute) Status post wrist surgery (Acute) Medical History (Last Updated 09/29/18 @ 22:02 by Emperatriz Montenegro DO) GERD (gastroesophageal reflux disease) (Acute) Peripheral edema (Acute) Rheumatoid arthritis (Acute) Physical Therapy Inpatient Evaluation/Re-Eval M1 PT/OT-IP Prior Functional Status Start: 09/30/18 12:21 Freq: NEEDED Status: Active Protocol: Document 09/30/18 09:50 (Rec: 09/30/18 12:51 [email or web address]) Medical Review Prior Functional Status Medical History Reviewed Yes Communication No deficits noted Mobility and Gait Pt is an independent ambulator at home and community. Pt does not need AD at home but she uses SPC for community mobility occasionally. Pt has 4 WW, SPC as needed. Activities of Daily Living and IADL's Pt is independent for ADLs and IADLs. Social History Household Members spouse Living Arrangements House Number of Floors (Floors) One Floor Number of Stairs To Enter/Railing? No RANI Home Environment High Toilet Walk in Shower Home Equipment Four Wheel Walker Straight Cane Raised Toilet Seat Without Armrests Shower Seat with Backrest Grab Bars In Shower Employment Status Retired Additional Social History Comment Pt is for 49 years who has a son and daughter. Pt lives with her at 1 story home without RANI. Pt was independent for all ADLs and IADLs with a SPC as needed. Pt had a fall 6 months ago who had a R partial RTC tear and received PT at [facility]. Pt has stability tape on R shoulder upon assessment. Pt also states she admitted to [facility] 2 years ago for RA and knee replacements but she did not like it at all and refuse to consider d/c to SNF this time. M2 PT-IP Current Condition Start: 09/30/18 12:21 Freq: NEEDED Status: Active Protocol: Document 09/30/18 09:50 (Rec: 09/30/18 12:51 [email or web address]) Physical Therapy Current Condition Current Condition Evaluation Date 09/30/18 Treatment Diagnosis GLF with rib and L pubic rami fx, acue anemia, RA, difficulty in walking Onset Date 09/29/18 Weight Bearing Status Weight Bearing Status Weight Bear as Tolerated Allowed Weight Bearing Amount (enter % for L LE and R UE or #) (%) M3 PT-IP Subjective Start: 09/30/18 12:21 Freq: NEEDED Status: Active Protocol: Document 09/30/18 09:50 (Rec: 09/30/18 12:51 [email or web address]) Subjective Physical Therapy Visit Type Type Initial Evaluation Visit Start Time 09:50 Visit Stop Time 10:30 Total Visit Minutes 40 Notes Pt agreed to mobilize with PT to [facility] and requested to have 2 pa. Pt has not getting OOB since admission. Number of LICENSING MANAGER Visits 0 Physical Therapy Visit Comments Patient Comments My pain is at 5/10 and 10/10 with movements. Patient Goals To return home and receive home health PT for overall strengthening Therapy Pain Assessment Pain When Pain Assessed At Rest Pain Present Pain Present Pain Reported Location Lower Back Intensity 5 Scale Used Numeric (1 - 10) Description Acute Pain Management Techniques Apply Cold Re-positioning Timing of Activity with Medications Left Hip Intensity 5 Scale Used Numeric (1 - 10) Description Acute Pain Management Techniques Apply Cold Re-positioning Timing of Activity with Medications M4 PT-IP Mobility and Gait Start: 09/30/18 12:21 Freq: NEEDED Status: Active Protocol: Document 09/30/18 09:50 (Rec: 09/30/18 12:51 [email or web address]) PT-Bed Mobility Assessment Supine to Sit Supine to Sit Moderate Assistance 2 Person Assistance Head of Bed Elevated Bedrails Sit to Supine Sit to Supine Moderate Assistance 2 Person Assistance Head of Bed Elevated Bedrails Scooting Scooting to Edge of Bed Moderate Assistance Scooting Up and Down in Bed Moderate Assistance PT-Transfer Assessment Sit to and From Stand Sit to and from Stand Moderate Assistance 2 Person Assistance Use of Upper Extremities Equipment Transfer Assistive Device Bed Rail Gait Belt Front Wheeled Walker Transfers Transfer Destination Bed Bedside Commode Transfer Technique Stand Step Pivot Transfer Ability Level of Assist Moderate Assistance 2 Person Assistance Use of Upper Extremities Comments Mobility Comments Pt requires mod A x2pa for overall bed mobility and transfer activities. Pt demonstrates significant difficulty to weight bear on her L LE and buttock during scooting and supine to sit due to pain. She then performed stand step pivot to BSC with R trunk lean and step to pattern. Pt requires mod cues for hand placements on armrest and FWW. Pt presents increased trunk forward lean from BSC to bed with c/o increased pain. Gait Assessment Gait Gait Assistance Required: Moderate Assistance 2 Person Assist Comments Gait Comments did not attempt due to pt's request and c/o increased pain Stair Climbing Assessment Comments Stair Climbing Comments did not attempt due to pt's request and c/o increased pain PT-Balance Assessment Sitting Balance and Reactions Static Sitting Balance Ability Good Dynamic Sitting Balance Ability Fair Standing Balance and Reactions Static Standing Balance Ability Fair Dynamic Standing Balance Ability Poor M5 PT-IP Objective Assessments Start: 09/30/18 12:21 Freq: NEEDED Status: Active Protocol: Document 09/30/18 09:50 (Rec: 09/30/18 12:51 [email or web address]) Orientation Orientation/Cognition Level of Alertness Alert Orientation Name Age Birthday Month Date Year Day of Week Place Situation Language Function Ability No Deficits Noted Safety Awareness Understands Safety Issues Decreased Safety Awareness Memory Description No Deficits Noted Gross Range of Motion Upper Extremity ROM Assessment Bilaterally Impaired Impairments significant ulnar deviation due to RA Lower Extremity ROM Assessment Bilaterally Impaired Impairments significant genu varus due to RA Strength Upper Extremity Strength Assessment Bilaterally Impaired Lower Extremity Strength Assessment Bilaterally Impaired Comments Strength Comments difficulty weight bearing on LLE due to pain Coordination Assessment Gross Coordination Gross Coordination WNL Sensation Assessment Sensation Gross Sensation WNL M6 PT-IP Treatment Start: 09/30/18 12:21 Freq: NEEDED Status: Active Protocol: Document 09/30/18 09:50 (Rec: 09/30/18 12:51 [email or web address]) Physical Therapy Treatment Exercises Exercises Ankle Pumps Gluteal Sets Quad Sets Heel Slides Education Education Provided Precautions Weight Bearing Status Post-Op Packet Safety M7 PT-IP Assessment and Plan Start: 09/30/18 12:21 Freq: NEEDED Status: Active Protocol: Document 09/30/18 09:50 (Rec: 09/30/18 12:51 [email or web address]) PT Summary Assessment and Plan Potential Rehabilitation Potential Good Status of Condition at Evaluation Evolving Summary Impairments Pain ROM Strength Balance Bed Mobility Transfers Gait Activity Tolerance Assessment Summary Pt is a pleasant 77 yo female dx with L pubic rami fx, rib fx and acute anemia s/p GLF at home yesterday. Pt also has a chronic PMH of RA who presents significant genu varus B LE an ulnar deviation of B UE upon postural assessment. Pt requires extensive assistance (mod A x 2pa) today for BSC transfer per pt's request. Pt refused to attempt amb due to increased pain with WB on LLE during transfer. She presents R trunk lean during stand step pivot and increased forward lean and assistance required during BSC to bed. However, pt states her pain is better and satisfied that she made it to BSC today. Pt also refused to d/c any SNF due to previous unsatisfied experience at [facility]. However, in my professional brent, pt will benefit extensive care from SNF to improve overall mobility and consistent pain management until her fx sites to be healed. Communicated with SW after tx session and they will follow up with pt for SNF options. If for any reason pt goes directly home instead, pt would need 24/7 assist and possibly a manual wheelchair in addition to HHPT . Goals Bed Mobility Goal Standby Assistance Transfer Goal Standby Assistance Gait Goal Standby Assistance Gait Distance 100 Days to Meet Goals 5 Frequency of Treatment Frequency Of Treatment Once a Day Treatment Plan Physical Therapy Treatment Plan Bed Mobility Training Transfer Training Gait Training Therapeutic Exercise Discharge Planning Other Recommendations and Next Treatment bed mob with supine to sit Focus BSC transfer and gait training as lori Recommendations To Nursing Amount of Assist Needed 2 Person Assist Discharge Recommendations PT Discharge Recommendations SNF Rehab
--- NOTE | 2018-09-30 13:48 | CM.DANOTE ---
Patient is a 77 year old female who was admitted on 09/29/18 for GLF. Pt has M[place] and [place] for insurance and her PCP is Dr. Alen Garsia. EMR was reviewed. Per MD, pt has pubic and rib fxs and per Ortho pt is non surgical at this time but mostly pain control. SW met bedside with pt and explained role and pt confirmed that she lives at home with her in [facility] and spouse is very supportive and physically very able to assist pt with lifting etc.. Pt is typically Independent with ADL's at baseline and her DPOA is her . Pt confirms that she has a hx of FCC a few years ago after breaking her hip and is adamant that she will never go to SNF again. Pt has a hx of HH and felt that HH was very helpful and she would be agreeable to HH again if recommended. Per PT, pt very painful and currently recommending SNF due to mobility issues and aware that pt is Observation Status and this is a barrier to SNF placement along with pt strongly declining SNF at d/c. Plan: SW to follow closely for pt pain control and progress with ambulation towards pt's preference of home with and HH and strongly declining SNF. Pt's OBS STATUS a barrier to SNF placement as well. MONIQUE Nichols Discharge Planning/Care Management CM Discharge Assessment Start: 09/30/18 13:46 Freq: Status: Active Protocol: Document 09/30/18 13:46 BF (Rec: 09/30/18 13:48 BF [email or web address]) Discharge Planning Assessment Assigned Violin Restorer MONIQUE Neri DPOA/Assigned Designee Name Spouse Advance Directives? Yes Advance Directives on File No History Provided By Patient Medical Record Has Patient been admitted in last 30 No days? Prior Living Arrangements House Household Members spouse Type of transporation used prior to Drives own vehicle admit Comment Independent with ADL's at baseline Independent with ADL's Yes Is patient alert and oriented? Yes Caregiver for Another No DME Already Rented / Owned FWW / Walker Cane Comment Waiting for PT eval and recommendations Barriers to Discharge Yes Comment Patient is currently OBS STATUS and medicare will not cover SNF stay Community Services Physical Therapy Occupational Therapy Additional Comment Waiting for further PT Whiteboard Updated in Patient Room with Yes name and ext. # of Violin Restorer Review Status In Process Please Provide Date Initial DC 09/30/18 Assessment Was Performed Next Review Type Continued Stay Review
[2018-09-30] MEDS: CALCIUM CARBONATE 500 MG TAB 1000 MG PO (14:20)
--- NOTE | 2018-09-30 21:34 | PC.NURSE ---
Pt reports moderate to severe pain with ambulation, IV dilaudid for breakthrough pain, IV Zofran for nausea r/t pain medication, declined appetite but no emesis; osei draining clear, yellow; 2-asst to bathroom; pt passing gas; RA=98%, LS clear throughout, patient encouraged to cough/deep breath; bed alarm active and call within reach
[2018-10-01] VITALS (11 sets, daily range): BP systolic 101–124; BP diastolic 55–67; PULSE 83–97; RESP 16–20; TEMP 37–37.8; O2SAT 96–98
[2018-10-01] MEDS: ONDANSETRON 4 MG/2 ML INJ IV ×2 (01:20→09:26)
[2018-10-01] MEDS: HYDROMORPHONE 1 MG INJ IV ×2 (01:20→09:25)
[2018-10-01] MEDS: HYDROCODONE/ACET 10/325 TABLET 1 TAB PO ×4 (06:19→20:37)
[2018-10-01] MEDS: PANTOPRAZOLE 40 MG TABLET PO (06:19)
[2018-10-01 09:11] LABS: Add Manual Diff / Slide Review NO; Basophils Absolute Auto 0 /uL (0-100); Basophils Percent Auto 0.4 % (0-2); Eosinophils Absolute Auto 100 /uL (0-450); Eosinophils Percent Auto 0.6 % (2-4); Hematocrit 38.1 % (36-46); Hemoglobin 12.8 g/dL (12.0-16.0); Lymphocytes Absolute Auto 1400 /uL (1100-4500); Lymphocytes Percent Auto 12.9 % (25-40); Mean Corpuscular HGB Conc 33.7 % (30-36); Mean Corpuscular Hemoglobin 32.4 PG (26-34); Mean Corpuscular Volume 96.2 fL (80-100); Monocytes Absolute Auto 700 /uL (0-900); Monocytes Percent Auto 6.9 % (3-14); Neutrophils Absolute Auto 8500 /uL (1500-7000); Neutrophils Percent Auto 79.2 % (50-75); Platelet Count 322 X10^3/uL (150-400); Red Blood Cell Count 3.96 X10^6/uL (4.0-5.2); Red Cell Distribution Width 15.1 % (11.6-14.8); White Blood Cell Count 10.8 X10^3/uL (4.5-11.0)
--- NOTE | 2018-10-01 09:13 | PM.PN.1 ---
Subjective Date Patient Seen: 10/01/18 Interval history: Mariely Man is a 77-year-old female with a past medical history significant for rheumatoid arthritis on methotrexate who presented to [facility] after a ground level fall complaining of left-sided rib cage and hip pain found to have left posterior 7th rib fracture and left superior and inferior pubic rami fracture and admitted for pain management and mobilization. Overnight: The patient was stable. She continued to have pain related to left superior and inferior pubic rami fracture which is better controlled with PO pain medication and IV pain medication for breakthrough. Today upon entrance into the room the patient is transferring from bedside commode to bedside chair. She is a 2 person assist with walker and very limited mobility. She continues to endorse pelvic pain that continues to improve and is controlled with as needed PO pain medication. She denies headache, shortness of breath, chest pain, abdominal pain, nausea, vomiting, fever, chills, dysuria, diarrhea or constipation. She is voiding and eliminating without difficulty. Exam Vital Signs (past 8 hours): - 10/01/18 06:00 10/01/18 07:40 Temperature 99.0 F 100.1 F H Pulse Rate 97 H 89 Respiratory Rate 16 20 Blood Pressure 112/67 101/55 L Pulse Oximetry 97 98 Oxygen Delivery Method Room Air Oxygen Flow Rate 0 Narrative Exam Narrative: General: Frail elderly female lying bed, appears mildy uncomfortable, well-developed, well-nourished, appropriately interactive. HEENT: Normocephalic, atraumatic. External ears without defect. Pupils equal, round, and reactive to light. Anicteric sclerae, moist conjunctivae, and no lid lag. Neck: Supple with full range of motion. No jugular venous distension. No bruits. No lymphadenopathy or thyromegaly. Cardiovascular: Regular rate and rhythm without murmurs, rubs, or gallops appreciated. Pulmonary: Clear to auscultation bilaterally without crackles, wheezes, or rhonchi. Normal respiratory effort with no use of accessory muscles. Abdomen: Soft, bowel sounds present, tender on left side, patient voluntarily guards, nondistended. No hepatosplenomegaly or masses appreciated. Extremities: No clubbing, cyanosis, or edema. RA changes in hands, knees, and feet bilaterally. Continued pain over left pubic rami/hip and left posterior lateral rib cage. Skin: Normal temperature, turgor, and texture; no rash, ulcers, or subcutaneous nodules appreciated. Neurological: Cranial nerves grossly intact. Psychiatric: Normal mood and affect. Alert and oriented to person, place, and time. Objective Labs Result Diagrams: 10/02/18 05:22 10/02/18 05:22 Assessment & Plan Plan: Assessment/Plan Narrative: Mariely Man is a 77-year-old female with a past medical history significant for rheumatoid arthritis on methotrexate who presented to [facility] after a ground level fall complaining of left-sided rib cage and hip pain found to have left posterior 7th rib fracture and left superior and inferior pubic rami fracture and admitted for pain management and mobilization. 1. Acute left superior and inferior pubic rami fracture and 7th posterior rib fracture, present on admission. Active. -Secondary to mechanical ground level fall. -Left hip x-ray demonstrates acute fracture involving left superior and inferior pubic rami with minimal displacement at fracture site. -Left rib x-ray demonstrated subtle nondisplaced left posterior seventh rib fracture. No focal infiltrate or pneumothorax. -Orthopedic surgery was consulted by ED physician. We appreciate their time and recommendations. -Transitioning from hydromorphone 1 mg IV every 6 hr as needed to p.o. pain medication with home hydrocodone 10-325 mg every 4 hr as needed for moderate to severe pain and hydrocodone 2.5 mg every 6 hr as needed for breakthrough pain. -Ordered Zofran as needed for nausea. -Continue PT and OT evaluation and treatment. 2. Chronic debilitation, present on admission. Active. -Patient has rheumatoid arthritis and is frail and extremely limited in mobility at baseline and per walking with FWW only approximately 100 ft several times a day. Patient is 2 person assist with FWW and WBAT. -Continue PT and OT evaluation and treatment. 3. Acute anemia and leukocytosis, present on admission. Resolved. -Secondary to mechanical GLF. -No overt signs of bleeding or infection (WBC likely stress response). 4. Rheumatoid arthritis, chronic, present on admission. Stable. -Continue home methotrexate 0.8 mg IM once weekly on Saturdays. -Frail and severely limited at baseline due to RA. 5. GERD, chronic, present on admission. Stable. -Continue home omeprazole 40 mg daily. 6. Peripheral edema, present on admission. Stable. -Mild lower extremity edema to pretibial area bilaterally. The patient reports the edema has been worked up extensively and has been considered idiopathic. No history of CHF. -Continue spironolactone 100 mg daily. Disposition: Patient likely to discharge in 1-2 days depending upon pain control and mobilization. Patient will need skilled rehabilitation as she is extremely debilitated at baseline now with concurrent superior and inferior pubic rami fracture and left rib fracture mobility is severely limited and minimal. Quality VTE Deep Vein Thrombosis/Pulmonary Embolism Present on Admission: No
[2018-10-01] MEDS: HEPARIN 5,000 UNIT/ML VIAL 5000 UNIT SUBCUT ×2 (09:15→20:38)
[2018-10-01] MEDS: SPIRONOLACTONE 50 MG TABLET 100 MG PO (09:16)
[2018-10-01 09:19] LABS: Blood Urea Nitrogen 4 mg/dL (7-17); Calcium 9.4 mg/dL (8.4-10.2); Carbon Dioxide 26 mmol/L (22-32); Chloride 93 mmol/L (98-107); Estimated Glomerular Filt Rate > 60.0 mL/min (>60); Glucose 98 mg/dL (80-110); HEMOLYSIS < 15 (0-50); Magnesium 1.7 mg/dL (1.6-2.3); Potassium 3.7 mmol/L (3.4-5.1); Sodium 131 mmol/L (137-145)
[2018-10-01] MEDS: MAGNESIUM HYDROXIDE 30 ML UDC PO (09:40)
--- NOTE | 2018-10-01 10:05 | PM.PN.1 ---
Subjective Date Patient Seen: 10/01/18 Time Patient Seen: 10:05 Interval history: Hospital day 3. History of ground level fall and sustained left superior and inferior pubic ramus fracture. Orthopedic consult done with Dr. Hi. Nonsurgical treatment. She is weight-bearing as tolerated. Working with physical therapy, and requiring two assists. She is taking Williamson for pain but still having pain control issues. Patient lives at home with her . Exam Vital Signs (past 8 hours): - 10/01/18 06:00 10/01/18 07:40 Temperature 99.0 F 100.1 F H Pulse Rate 97 H 89 Respiratory Rate 16 20 Blood Pressure 112/67 101/55 L Pulse Oximetry 97 98 Oxygen Delivery Method Room Air Oxygen Flow Rate 0 Narrative Exam Narrative: Patient sitting in bedside chair in NAD. She is alert and oriented X3. Objective Labs Result Diagrams: 10/01/18 08:40 10/01/18 08:40 Labs: Laboratory Results - last 24 hr 10/01/18 10/01/18 08:40 08:40 WBC 10.8 RBC 3.96 L Hgb 12.8 Hct 38.1 MCV 96.2 MCH 32.4 MCHC 33.7 RDW 15.1 H Plt Count 322 Neut % (Auto) 79.2 H Lymph % (Auto) 12.9 L Barton % (Auto) 6.9 Eos % (Auto) 0.6 L Baso % (Auto) 0.4 Neut # (Auto) 8500 H Lymph # (Auto) 1400 Barton # (Auto) 700 Eos # (Auto) 100 Baso # (Auto) 0 Sodium 131 L Potassium 3.7 Chloride 93 L Carbon Dioxide 26 BUN 4 L Creatinine 0.50 L Estimated GFR > 60.0 BUN/Creatinine Ratio 8.0 Glucose 98 Calcium 9.4 Magnesium 1.7 Assessment & Plan (1) Fracture of ramus of left pubis: Qualifiers: Encounter type: initial encounter Fracture healing: Fracture type: closed Qualified Code(s): S32.592A - Other specified fracture of left pubis, initial encounter for closed fracture Current visit: Yes Status: Acute (2) Closed rib fracture: Qualifiers: Encounter type: initial encounter Fracture healing: Laterality: left Rib fracture type: single rib Qualified Code(s): S22.32XA - Fracture of one rib, left side, initial encounter for closed fracture Current visit: Yes Status: Acute Plan: Assessment/Plan Narrative: Patient will continue to ambulate with PT, WBAT. Rib fx treated with analgesics, and ice. Patient has an allergy to Oxycodone, and has been taking current Williamson dose for years for her RA. Nursing will discuss with Hospitalist increasing Williamson frequency vs starting oral dilaudid. Patient requiring 2 assists and will likely need SNF vs home health services. Discharge by hospitalist once medically stable. Quality VTE Deep Vein Thrombosis/Pulmonary Embolism Present on Admission: No
--- NOTE | 2018-10-01 11:58 | PT.IPTN ---
Current Diagnoses Fracture of one rib, left side, initial encounter for closed fracture (09/29/18) Fracture of one rib, unspecified side, initial encounter for closed fracture (09/29/18) Other specified fracture of left pubis, initial encounter for closed fracture (09/29/18) Physical Therapy Treatment Note M2 PT-IP Current Condition Start: 09/30/18 12:21 Freq: NEEDED Status: Active Protocol: Document 09/30/18 09:50 HH (Rec: 09/30/18 12:51 [email or web address]) Physical Therapy Current Condition Current Condition Evaluation Date 09/30/18 Treatment Diagnosis GLF with rib and L pubic rami fx, acue anemia, RA, difficulty in walking Onset Date 09/29/18 Weight Bearing Status Weight Bearing Status Weight Bear as Tolerated Allowed Weight Bearing Amount (enter % for L LE and R UE or #) (%) M3 PT-IP Subjective Start: 09/30/18 12:21 Freq: NEEDED Status: Active Protocol: Document 10/01/18 11:49 SA (Rec: 10/01/18 11:58 SA [id number]) Subjective Physical Therapy Visit Type Type Treatment Note Visit Start Time 10:00 Visit Stop Time 10:25 Total Visit Minutes 25 Notes Pt up in chair and agreeable to PT after pain meds take effect. Number of DIGITAL MEDIA PRODUCER Visits 1 Physical Therapy Visit Comments Patient Comments Pt rates pain as 3/10 at rest and higher with mobility. Patient Goals To return home with . Therapy Pain Assessment Pain When Pain Assessed At Rest Pain Present Pain Present Pain Reported Location Lower Back Intensity 3 Scale Used Numeric (1 - 10) Pain Management Techniques Apply Cold Re-positioning Timing of Activity with Medications M4 PT-IP Mobility and Gait Start: 09/30/18 12:21 Freq: NEEDED Status: Active Protocol: Document 10/01/18 11:49 SA (Rec: 10/01/18 11:58 SA [id number]) PT-Transfer Assessment Sit to and From Stand Sit to and from Stand Minimal Assistance 1 Person Assistance Use of Upper Extremities Equipment Transfer Assistive Device Gait Belt Front Wheeled Walker Orthotic/Prosthetic Devices or Brace: No Transfers Transfer Destination Chair Bedside Commode Transfer Technique Stand Step Pivot Transfer Ability Level of Assist Moderate Assistance 1 Person Assistance Use of Upper Extremities Comments Mobility Comments Pt agreeable to mobilize with 1 person assist, Min-Mod A for most tasks with increased time required d/t pain. Pt very gaurded and anticipates pain, slow movements best. Gait Assessment Gait Gait Assistance Required: Moderate Assistance 1 Person Assist Distance (Feet) 8 Able to Maintain Weight Bearing Status Yes During Gait Assistive Devices Assistive Device Gait Belt Front Wheeled Walker Gait Deviations General Gait Pattern Antalgic Decreased Stride Length Decreased Feet Clearance Flexed Trunk Step-to Gait Factors Limiting Gait Function Factors Limiting Gait Function Decreased Activity Tolerance Decreased Strength Pain Poor Safety Awareness Comments Gait Comments Pt able to walk 2 feet with c/ o dizziness, took a seated rest break then was able to walk 6 feet into shower and sit on BSC to bathe with STAVE PLANER TENDER. Pt very guarded and forward flexed, pain most limiting factor. PT-Balance Assessment Sitting Balance and Reactions Static Sitting Balance Ability Good Dynamic Sitting Balance Ability Fair M5 PT-IP Objective Assessments Start: 09/30/18 12:21 Freq: NEEDED Status: Active Protocol: Document 09/30/18 09:50 (Rec: 09/30/18 12:51 [id number]) Orientation Orientation/Cognition Level of Alertness Alert Orientation Name Age Birthday Month Date Year Day of Week Place Situation Language Function Ability No Deficits Noted Safety Awareness Understands Safety Issues Decreased Safety Awareness Memory Description No Deficits Noted Gross Range of Motion Upper Extremity ROM Assessment Bilaterally Impaired Impairments significant ulnar deviation due to RA Lower Extremity ROM Assessment Bilaterally Impaired Impairments significant genu varus due to RA Strength Upper Extremity Strength Assessment Bilaterally Impaired Lower Extremity Strength Assessment Bilaterally Impaired Comments Strength Comments difficulty weight bearing on LLE due to pain Coordination Assessment Gross Coordination Gross Coordination WNL Sensation Assessment Sensation Gross Sensation WNL M6 PT-IP Treatment Start: 09/30/18 12:21 Freq: NEEDED Status: Active Protocol: Document 10/01/18 11:49 SA (Rec: 10/01/18 11:58 [id number]) Physical Therapy Treatment Exercises Exercises Ankle Pumps Gluteal Sets Quad Sets Heel Slides Education Education Provided Precautions Weight Bearing Status Post-Op Packet Safety M7 PT-IP Assessment and Plan Start: 09/30/18 12:21 Freq: NEEDED Status: Active Protocol: Document 10/01/18 11:49 SA (Rec: 10/01/18 11:58 [id number]) PT Summary Assessment and Plan Potential Rehabilitation Potential Good Status of Condition at Evaluation Evolving Summary Assessment Summary Pt with slow and guarded mobility and able to have 1 person assit today with min- Mod A and increased time allowed. Pt still not wanting to go to SNF but feel she would benefit from continued functional mobility training, pain management and strengthening. Frequency of Treatment Frequency Of Treatment Twice a Day Treatment Plan Physical Therapy Treatment Plan Bed Mobility Training Transfer Training Gait Training Therapeutic Exercise Discharge Planning Recommendations To Nursing Amount of Assist Needed 1 Person Assist Discharge Recommendations PT Discharge Recommendations SNF Rehab
[2018-10-01] MEDS: CALCIUM CARBONATE 500 MG TAB 1000 MG PO (14:46)
--- NOTE | 2018-10-01 15:26 | PC.NURSE ---
Day Shift- Pt A&OX4, able to make her needs known with call light. Pain management plan discussed. Pt needed Dilaudid IV prn BTP med at 0925. Pt requested prn zofran as dilaudid makes her slightly nauseated. Explained to pt that the goal is to try and maintain pain control on po pills in order to facilitate discharge. Prn Ione given at 1045/1445. Rates left side pelvic pain from front to back and left rib pain with lower back discomfort. Rates pain 5-8/10 aching and intermittent sharpness. OOB this AM with 2PA, had shower with TOOL MAINTENANCE WORKER assist. This afternoon, OOB with 1PA working with PT. High fall risk precautions in place, bed alarm and chair alarm used. Low grade fever noted, enc deep breathing and coughing exercises with chest splinting. student development coordinator instructed pt on use of incentive spirometer with this writers observation. Enc IS use frequently while awake.
--- NOTE | 2018-10-01 16:16 | PT.IPTN ---
Current Diagnoses Fracture of one rib, left side, initial encounter for closed fracture (09/29/18) Fracture of one rib, unspecified side, initial encounter for closed fracture (09/29/18) Other specified fracture of left pubis, initial encounter for closed fracture (09/29/18) Physical Therapy Treatment Note M2 PT-IP Current Condition Start: 09/30/18 12:21 Freq: NEEDED Status: Active Protocol: Document 09/30/18 09:50 HH (Rec: 09/30/18 12:51 [email or web address]) Physical Therapy Current Condition Current Condition Evaluation Date 09/30/18 Treatment Diagnosis GLF with rib and L pubic rami fx, acue anemia, RA, difficulty in walking Onset Date 09/29/18 Weight Bearing Status Weight Bearing Status Weight Bear as Tolerated Allowed Weight Bearing Amount (enter % for L LE and R UE or #) (%) M3 PT-IP Subjective Start: 09/30/18 12:21 Freq: NEEDED Status: Active Protocol: Document 10/01/18 16:08 SA (Rec: 10/01/18 16:16 SA [id number]) Subjective Physical Therapy Visit Type Type Treatment Note Visit Start Time 14:06 Visit Stop Time 14:40 Total Visit Minutes 34 Notes Pt up in chair with present, pt becoming agreeable to SNF placement. Number of SOA ENGINEER Visits 2 Physical Therapy Visit Comments Patient Comments Pt reports pubic pain persists and increases with WBing activity. Patient Goals Pt understands she may need continued rehab and assistance in SNF prior to going home with . Therapy Pain Assessment Pain When Pain Assessed At Rest Pain Present Pain Present Pain Reported Location Left Ribs Intensity 4 Scale Used Numeric (1 - 10) Pain Management Techniques Modification of Treatment Re-positioning Timing of Activity with Medications M4 PT-IP Mobility and Gait Start: 09/30/18 12:21 Freq: NEEDED Status: Active Protocol: Document 10/01/18 16:08 SA (Rec: 10/01/18 16:16 SA [id number]) PT-Bed Mobility Assessment Sit to Supine Sit to Supine Moderate Assistance 1 Person Assistance Bedrails Scooting Scooting to Edge of Bed Moderate Assistance Scooting Up and Down in Bed Moderate Assistance PT-Transfer Assessment Sit to and From Stand Sit to and from Stand Minimal Assistance 1 Person Assistance Use of Upper Extremities Equipment Transfer Assistive Device Gait Belt Front Wheeled Walker Orthotic/Prosthetic Devices or Brace: No Transfers Transfer Destination Bed Toilet Transfer Technique Stand Step Pivot Transfer Ability Level of Assist Minimal Assistance 1 Person Assistance Use of Upper Extremities Comments Mobility Comments Pt Min A with stand pivot txs but needs increased time to perform d/t pubic pain. Pt still very guerded with movements but WBing slightly more through LLE. Gait Assessment Gait Gait Assistance Required: Moderate Assistance 1 Person Assist Distance (Feet) 10 Able to Maintain Weight Bearing Status Yes During Gait Assistive Devices Assistive Device Gait Belt Front Wheeled Walker Gait Deviations General Gait Pattern Antalgic Decreased Stride Length Decreased Feet Clearance Flexed Trunk Step-to Gait Factors Limiting Gait Function Factors Limiting Gait Function Decreased Activity Tolerance Decreased Strength Pain Poor Safety Awareness Comments Gait Comments Gait training from chair> toilet> Bed with slow antalgic gait and heavy WBing through UEs/FWW. Increased time and slow pace. PT-Balance Assessment Sitting Balance and Reactions Static Sitting Balance Ability Good Dynamic Sitting Balance Ability Fair M5 PT-IP Objective Assessments Start: 09/30/18 12:21 Freq: NEEDED Status: Active Protocol: Document 09/30/18 09:50 (Rec: 09/30/18 12:51 [email or web address]) Orientation Orientation/Cognition Level of Alertness Alert Orientation Name Age Birthday Month Date Year Day of Week Place Situation Language Function Ability No Deficits Noted Safety Awareness Understands Safety Issues Decreased Safety Awareness Memory Description No Deficits Noted Gross Range of Motion Upper Extremity ROM Assessment Bilaterally Impaired Impairments significant ulnar deviation due to RA Lower Extremity ROM Assessment Bilaterally Impaired Impairments significant genu varus due to RA Strength Upper Extremity Strength Assessment Bilaterally Impaired Lower Extremity Strength Assessment Bilaterally Impaired Comments Strength Comments difficulty weight bearing on LLE due to pain Coordination Assessment Gross Coordination Gross Coordination WNL Sensation Assessment Sensation Gross Sensation WNL M6 PT-IP Treatment Start: 09/30/18 12:21 Freq: NEEDED Status: Active Protocol: Document 10/01/18 16:08 SA (Rec: 10/01/18 16:16 SA [id number]) Physical Therapy Treatment Exercises Exercises Ankle Pumps Gluteal Sets Quad Sets Heel Slides Education Education Provided Precautions Weight Bearing Status Post-Op Packet Safety M7 PT-IP Assessment and Plan Start: 09/30/18 12:21 Freq: NEEDED Status: Active Protocol: Document 10/01/18 16:08 SA (Rec: 10/01/18 16:16 SA [id number]) PT Summary Assessment and Plan Potential Rehabilitation Potential Good Status of Condition at Evaluation Evolving Summary Assessment Summary Pt making slow, gradual functional mobility gains but pubic and rib pain continue to be most limiting factor. Frequency of Treatment Frequency Of Treatment Twice a Day Treatment Plan Physical Therapy Treatment Plan Bed Mobility Training Transfer Training Gait Training Therapeutic Exercise Discharge Planning Recommendations To Nursing Amount of Assist Needed 1 Person Assist Discharge Recommendations PT Discharge Recommendations SNF Rehab
[2018-10-01] MEDS: HYDROCODONE/ACET 5/325 TABLET 0.5 TAB PO ×2 (17:51→23:46)
--- NOTE | 2018-10-01 22:09 | PC.NURSE ---
Pt had relatively uneventful evening. Med at 2039 for discomfort w/fair relief. Mayo cath patent clear yellow urine HL intact/patent. Tele NSR per ICU staff. Call light w/in reach, bed alarm on for pt safety. Continue w/plan of care.
[2018-10-02] VITALS (8 sets, daily range): BP systolic 110–126; BP diastolic 58–70; PULSE 81–93; RESP 16–18; TEMP 36.6–37.3; O2SAT 96–100
[2018-10-02] MEDS: HYDROCODONE/ACET 10/325 TABLET 1 TAB PO ×5 (02:07→20:51)
[2018-10-02] MEDS: PANTOPRAZOLE 40 MG TABLET PO (05:36)
[2018-10-02] MEDS: HYDROCODONE/ACET 5/325 TABLET 0.5 TAB PO (05:36)
[2018-10-02 06:21] LABS: Add Manual Diff / Slide Review NO; Basophils Absolute Auto 100 /uL (0-100); Basophils Percent Auto 0.7 % (0-2); Eosinophils Absolute Auto 100 /uL (0-450); Eosinophils Percent Auto 1.2 % (2-4); Hematocrit 34.8 % (36-46); Hemoglobin 11.8 g/dL (12.0-16.0); Lymphocytes Absolute Auto 1800 /uL (1100-4500); Lymphocytes Percent Auto 21.4 % (25-40); Mean Corpuscular HGB Conc 33.9 % (30-36); Mean Corpuscular Hemoglobin 32.4 PG (26-34); Mean Corpuscular Volume 95.3 fL (80-100); Monocytes Absolute Auto 700 /uL (0-900); Monocytes Percent Auto 8.7 % (3-14); Neutrophils Absolute Auto 5700 /uL (1500-7000); Platelet Count 290 X10^3/uL (150-400); Red Blood Cell Count 3.65 X10^6/uL (4.0-5.2); Red Cell Distribution Width 15.4 % (11.6-14.8); White Blood Cell Count 8.4 X10^3/uL (4.5-11.0)
[2018-10-02 06:28] LABS: BUN Creatinine Ratio 8.3 (6-22); Blood Urea Nitrogen 5 mg/dL (7-17); Calcium 9.3 mg/dL (8.4-10.2); Carbon Dioxide 31 mmol/L (22-32); Chloride 95 mmol/L (98-107); Estimated Glomerular Filt Rate > 60.0 mL/min (>60); Glucose 85 mg/dL (80-110); HEMOLYSIS < 15 (0-50); Sodium 133 mmol/L (137-145)
--- NOTE | 2018-10-02 06:41 | PC.NURSE ---
Patient does not have clinic [place] [facility] [place] from [place]. Patient taking po pain meds, effective for her. Alert and oriented. Ice to abdomen/pubus rami area also for comfort. Does not want to leave hospital, but understands reasoning for rehab.
[2018-10-02] MEDS: ONDANSETRON 4 MG/2 ML INJ IV (07:38)
[2018-10-02] MEDS: HYDROMORPHONE 1 MG INJ IV (07:40)
[2018-10-02] MEDS: SODIUM CHLORIDE 0.9% FLUSH 10 ML IV ×2 (07:40→20:15)
--- NOTE | 2018-10-02 07:52 | P.PN_ITS ---
Subjective Date Patient Seen: 10/02/18 Interval history: Mariely Man is a 77-year-old female with a past medical history significant for rheumatoid arthritis on methotrexate who presented to [facility] after a ground level fall complaining of left-sided rib cage and hip pain found to have left posterior 7th rib fracture and left superior and inferior pubic rami fracture and admitted for pain management and mobilization. Overnight: The patient was stable. She continued to have pain related to left superior and inferior pubic rami fracture which is better controlled with PO pain medication but did require 1 dose of IV Dilaudid 1 mg for severe pain with mobility this morning. The patient continues to be severely limited with mobility and requires 2 person assistance with forward wheeled walker. Discussed the patient's functional status with her Azam yesterday evening who reports at baseline the patient is quite frail and limited with mobility due to her severe rheumatoid arthritis. Her does not believe that he could care for her at home safely. She continues to endorse pelvic pain and is controlled with as needed IV and PO pain medication. She denies headache, shortness of breath, chest pain, abdominal pain, nausea, vomiting, fever, chills, dysuria, diarrhea or constipation. She does endorse significant flatulence this morning. She is voiding and eliminating without difficulty. Exam Vital Signs (past 8 hours): - 10/02/18 05:20 Temperature 98.1 F Pulse Rate 81 Respiratory Rate 16 Blood Pressure 110/68 Pulse Oximetry 98 Oxygen Delivery Method Room Air Oxygen Flow Rate 0 Narrative Exam Narrative: General: Elderly female lying bed and appears comfortable after recent IV pain medication administration, well-developed, well-nourished, appropriately interactive. HEENT: Normocephalic, atraumatic. External ears without defect. Pupils equal, round, and reactive to light. Anicteric sclerae, moist conjunctivae, and no lid lag. Neck: Supple with full range of motion. No lymphadenopathy or thyromegaly. Cardiovascular: Regular rate and rhythm without murmurs, rubs, or gallops appreciated. Pulmonary: Clear to auscultation bilaterally without crackles, wheezes, or rhonchi. Normal respiratory effort with no use of accessory muscles. Abdomen: Soft, bowel sounds present, nontender, nondistended. No hepatosplenomegaly or masses appreciated. Extremities: No clubbing, cyanosis, or edema. RA changes in hands, knees, and feet bilaterally. Continued pain over left pubic rami/hip and left posterior/ lateral rib cage. Skin: Normal temperature, turgor, and texture; no rash, ulcers, or subcutaneous nodules appreciated. Neurological: Cranial nerves grossly intact. Psychiatric: Normal mood and affect. Alert and oriented to person, place, and time. Objective Labs Result Diagrams: 10/02/18 05:22 10/02/18 05:22 Labs: Laboratory Results - last 24 hr 10/01/18 10/01/18 10/02/18 08:40 08:40 05:22 WBC 10.8 8.4 RBC 3.96 L 3.65 L Hgb 12.8 11.8 L Hct 38.1 34.8 L MCV 96.2 95.3 MCH 32.4 32.4 MCHC 33.7 33.9 RDW 15.1 H 15.4 H Plt Count 322 290 Neut % (Auto) 79.2 H 68.0 Lymph % (Auto) 12.9 L 21.4 L [place] % (Auto) 6.9 8.7 Eos % (Auto) 0.6 L 1.2 L Baso % (Auto) 0.4 0.7 Neut # (Auto) 8500 H 5700 Lymph # (Auto) 1400 1800 [place] # (Auto) 700 700 Eos # (Auto) 100 100 Baso # (Auto) 0 100 Sodium 131 L Potassium 3.7 Chloride 93 L Carbon Dioxide 26 BUN 4 L Creatinine 0.50 L Estimated GFR > 60.0 BUN/Creatinine Ratio 8.0 Glucose 98 Calcium 9.4 Magnesium 1.7 10/02/18 10/02/18 05:22 05:22 WBC RBC Hgb Hct MCV MCH MCHC RDW Plt Count Neut % (Auto) Lymph % (Auto) [place] % (Auto) Eos % (Auto) Baso % (Auto) Neut # (Auto) Lymph # (Auto) [place] # (Auto) Eos # (Auto) Baso # (Auto) Sodium 133 L Potassium 4.0 Chloride 95 L Carbon Dioxide 31 BUN 5 L Creatinine 0.60 Estimated GFR > 60.0 BUN/Creatinine Ratio 8.3 Glucose 85 Calcium 9.3 Magnesium 2.0 Assessment & Plan Plan: Assessment/Plan Narrative: Mariely Man is a 77-year-old female with a past medical history significant for rheumatoid arthritis on methotrexate who presented to [facility] after a ground level fall complaining of left-sided rib cage and hip pain found to have left posterior 7th rib fracture and left superior and inferior pubic rami fracture and admitted for pain management and mobilization. 1. Acute left superior and inferior pubic rami fracture and 7th posterior rib fracture, present on admission. Active. -Secondary to mechanical ground level fall. -Left hip x-ray demonstrates acute fracture involving left superior and inferior pubic rami with minimal displacement at fracture site. -Left rib x-ray demonstrated subtle nondisplaced left posterior seventh rib fracture. No focal infiltrate or pneumothorax. -Orthopedic surgery was consulted by ED physician. We appreciate their time and recommendations. -Transitioning from hydromorphone 1 mg IV every 6 hr as needed to p.o. pain medication with home hydrocodone 10-325 mg every 4 hr as needed for moderate to severe pain and hydrocodone 2.5 mg every 6 hr as needed for breakthrough pain. -Ordered Zofran as needed for nausea. -Continue PT and OT evaluation and treatment. 2. Chronic debilitation, present on admission. Active. -Patient has rheumatoid arthritis and is frail and extremely limited in mobility at baseline and her walking with FWW only approximately 100 ft several times a day. Patient is 2 person assist with FWW and WBAT. -Continue PT and OT evaluation and treatment. 3. Acute anemia and leukocytosis, present on admission. Resolved. -Secondary to mechanical GLF. -No overt signs of bleeding or infection (WBC likely stress response). 4. Rheumatoid arthritis, chronic, present on admission. Stable. -Continue home methotrexate 0.8 mg IM once weekly on Saturdays. -Frail and severely limited at baseline due to RA. 5. GERD, chronic, present on admission. Stable. -Continue home omeprazole 40 mg daily. 6. Peripheral edema, present on admission. Stable. -Mild lower extremity edema to pretibial area bilaterally. The patient reports the edema has been worked up extensively and has been considered idiopathic. No history of CHF. -Continue spironolactone 100 mg daily. Disposition: Patient likely to discharge in 1-2 days depending upon pain control and mobilization. Patient will need skilled rehabilitation as she is extremely debilitated at baseline now with concurrent superior and inferior pubic rami fracture and left rib fracture mobility is severely limited and minimal. Quality VTE Deep Vein Thrombosis/Pulmonary Embolism Present on Admission: No
[2018-10-02] MEDS: SPIRONOLACTONE 50 MG TABLET 100 MG PO (08:43)
[2018-10-02] MEDS: HEPARIN 5,000 UNIT/ML VIAL 5000 UNIT SUBCUT ×2 (08:44→20:14)
[2018-10-02] MEDS: MAGNESIUM HYDROXIDE 30 ML UDC PO (08:52)
--- NOTE | 2018-10-02 12:04 | CM.DPC ---
Addendum entered by Coreen Anguiano R.N. 10/02/18 12:56: Went ahead and sent clinical notes to [facility] and [facility]. Spoke to Liliane who had received referral, at [facility]. They have beds available, and she understands that inpatient status date is pending. Original Note: DCP Cont: Confirmed with Taina at that patient will become inpatient status. Unknown as of when yet, but Taina will be working on this. Spoke to , Mr. Chan. His phone number is: [phone]. Patient has Medicare/[facility]. Asked him if he was familiar with the penitentiary facilities in the area. He stated that he was familiar with [facility]. These are his two choices for now. Will go over Medicare list as well, for he will be here at approximately 2:30 to see his . P: Patient needs penitentiary. Will send clinical notes to both facilities for now, pending on status of inpatient date. Coreen Anguiano RN/Database Designer
[2018-10-02] MEDS: CALCIUM CARBONATE 500 MG TAB 1000 MG PO ×2 (12:34→20:14)
--- NOTE | 2018-10-02 12:46 | PT.IPTN ---
Current Diagnoses Fracture of one rib, left side, initial encounter for closed fracture (09/29/18) Fracture of one rib, unspecified side, initial encounter for closed fracture (09/29/18) Other specified fracture of left pubis, initial encounter for closed fracture (09/29/18) Physical Therapy Treatment Note M2 PT-IP Current Condition Start: 09/30/18 12:21 Freq: NEEDED Status: Active Protocol: Document 09/30/18 09:50 HH (Rec: 09/30/18 12:51 HH [email or web address]) Physical Therapy Current Condition Current Condition Evaluation Date 09/30/18 Treatment Diagnosis GLF with rib and L pubic rami fx, acue anemia, RA, difficulty in walking Onset Date 09/29/18 Weight Bearing Status Weight Bearing Status Weight Bear as Tolerated Allowed Weight Bearing Amount (enter % for L LE and R UE or #) (%) M3 PT-IP Subjective Start: 09/30/18 12:21 Freq: NEEDED Status: Active Protocol: Document 10/02/18 10:30 GGD (Rec: 10/02/18 12:46 GGD [id number]) Subjective Physical Therapy Visit Type Type Patient Refusal Notes Pt refused state having stomach pain, RN informed Frequency of Treatment Frequency Of Treatment Twice a Day Treatment Plan Physical Therapy Treatment Plan Bed Mobility Training Transfer Training Gait Training Therapeutic Exercise Discharge Planning Recommendations To Nursing Amount of Assist Needed 1 Person Assist Discharge Recommendations PT Discharge Recommendations SNF Rehab
--- NOTE | 2018-10-02 14:36 | PT.IPTN ---
Current Diagnoses Fracture of one rib, left side, initial encounter for closed fracture (09/29/18) Fracture of one rib, unspecified side, initial encounter for closed fracture (09/29/18) Other specified fracture of left pubis, initial encounter for closed fracture (09/29/18) Physical Therapy Treatment Note M2 PT-IP Current Condition Start: 09/30/18 12:21 Freq: NEEDED Status: Active Protocol: Document 09/30/18 09:50 HH (Rec: 09/30/18 12:51 [email or web address]) Physical Therapy Current Condition Current Condition Evaluation Date 09/30/18 Treatment Diagnosis GLF with rib and L pubic rami fx, acue anemia, RA, difficulty in walking Onset Date 09/29/18 Weight Bearing Status Weight Bearing Status Weight Bear as Tolerated Allowed Weight Bearing Amount (enter % for L LE and R UE or #) (%) M3 PT-IP Subjective Start: 09/30/18 12:21 Freq: NEEDED Status: Active Protocol: Document 10/02/18 14:30 HH (Rec: 10/02/18 14:36 [id number]) Subjective Physical Therapy Visit Type Type Treatment Note Visit Start Time 13:30 Visit Stop Time 14:00 Total Visit Minutes 30 Notes Pt up in chair and agreeable to mobilize with PT Number of NEWS VIDEOTAPE EDITOR Visits 2 Physical Therapy Visit Comments Patient Comments Pt reports pubic pain persists and increases with WBing activity. Therapy Pain Assessment Pain When Pain Assessed At Rest Pain Present Pain Present Pain Reported Location Left Ribs Intensity 5 Scale Used Numeric (1 - 10) Pain Management Techniques Modification of Treatment Re-positioning Timing of Activity with Medications M4 PT-IP Mobility and Gait Start: 09/30/18 12:21 Freq: NEEDED Status: Active Protocol: Document 10/02/18 14:30 HH (Rec: 10/02/18 14:36 [id number]) PT-Bed Mobility Assessment Sit to Supine Sit to Supine Moderate Assistance 1 Person Assistance Bedrails PT-Transfer Assessment Sit to and From Stand Sit to and from Stand Minimal Assistance 1 Person Assistance Use of Upper Extremities Equipment Transfer Assistive Device Gait Belt Front Wheeled Walker Orthotic/Prosthetic Devices or Brace: No Transfers Transfer Destination Bed Chair Transfer Technique Stand Step Pivot Transfer Ability Level of Assist Minimal Assistance 1 Person Assistance Use of Upper Extremities Comments Mobility Comments Pt Min A with stand step pivot txs but needs increased time to perform d/t pubic pain. Pt also needs min A at her L heel to propel her LLE during transfer due to WB causes pain . Gait Assessment Gait Gait Assistance Required: Moderate Assistance 1 Person Assist Distance (Feet) 10 Able to Maintain Weight Bearing Status Yes During Gait Assistive Devices Assistive Device Gait Belt Front Wheeled Walker Gait Deviations General Gait Pattern Antalgic Decreased Stride Length Decreased Feet Clearance Flexed Trunk Step-to Gait Factors Limiting Gait Function Factors Limiting Gait Function Decreased Activity Tolerance Decreased Strength Pain Poor Safety Awareness Comments Gait Comments Pt amb from bedside chair to the other side of the bed. Pt requires mod A x 1p to propel her LLE from her L heel due to WB causes her pubic pain. Pt c/o increased pain and fatigue after 10 feet and requested to be transfer back to bed for rest. M5 PT-IP Objective Assessments Start: 09/30/18 12:21 Freq: NEEDED Status: Active Protocol: Document 09/30/18 09:50 HH (Rec: 09/30/18 12:51 [email or web address]) Orientation Orientation/Cognition Level of Alertness Alert Orientation Name Age Birthday Month Date Year Day of Week Place Situation Language Function Ability No Deficits Noted Safety Awareness Understands Safety Issues Decreased Safety Awareness Memory Description No Deficits Noted Gross Range of Motion Upper Extremity ROM Assessment Bilaterally Impaired Impairments significant ulnar deviation due to RA Lower Extremity ROM Assessment Bilaterally Impaired Impairments significant genu varus due to RA Strength Upper Extremity Strength Assessment Bilaterally Impaired Lower Extremity Strength Assessment Bilaterally Impaired Comments Strength Comments difficulty weight bearing on LLE due to pain Coordination Assessment Gross Coordination Gross Coordination WNL Sensation Assessment Sensation Gross Sensation WNL M6 PT-IP Treatment Start: 09/30/18 12:21 Freq: NEEDED Status: Active Protocol: Document 10/01/18 16:08 SA (Rec: 10/01/18 16:16 SA [id number]) Physical Therapy Treatment Exercises Exercises Ankle Pumps Gluteal Sets Quad Sets Heel Slides Education Education Provided Precautions Weight Bearing Status Post-Op Packet Safety M7 PT-IP Assessment and Plan Start: 09/30/18 12:21 Freq: NEEDED Status: Active Protocol: Document 10/02/18 14:30 HH (Rec: 10/02/18 14:36 HH [id number]) PT Summary Assessment and Plan Potential Rehabilitation Potential Good Status of Condition at Evaluation Evolving Summary Assessment Summary Pt cont to show slow progress due to increased rib and pubic during WB activities. Pt education on quick right step to reduce time spent on WB on LLE during stance phase. Frequency of Treatment Frequency Of Treatment Twice a Day Treatment Plan Physical Therapy Treatment Plan Bed Mobility Training Transfer Training Gait Training Therapeutic Exercise Discharge Planning Recommendations To Nursing Amount of Assist Needed 1 Person Assist Discharge Recommendations PT Discharge Recommendations SNF Rehab
--- NOTE | 2018-10-02 14:39 | CM.DPC ---
DCP Cont: Met with patient and in patient's room. Pleasant couple, patient alert and oriented. very supportive. He stated, he would have loved to take her home, but he can't transfer her like physical therapy does, with her injuries. Patient stated, she has a lot of pain when she tries to get up and work with physical therapy. Mentioned to patient and , that patient is inpatient status as of admit date, which was the . Is aware that Medicare approves retirement after 3 days, and has been 3 days. Discussed facilities of choice. Patient stated that she had been at [facility] with a noisy neighbor She stated that she would go back if she is with a quiet neighbor. Updated Liliane at [facility], and she stated that she would get her a quiet neighbor. Sanjiv at [facility] stated they can accept her . Coreen Anguiano, RN/Direct Customer Service Representative
--- NOTE | 2018-10-02 16:35 | PC.NURSE ---
Day Shift- Pt A&OX4, able to make needs know with call light. Rates pain this AM 7/10 to left pelvic area and left ribs. IV Dilaudid 1mg given at 0740 per verbal order by Dr. Montenegro. Zofran IV prn given X1 at same time as dilaudid per pt request as Dilaudid makes her nauseated. Plan for po pain meds. [place] 10/325 given at 0845/1250 for 4.5-6/10 pain. Lower back pain, pt states is positional. Pt reported feeling slightly nauseated around lunch time, prn TUMS given with good effect. Pt stated feeling less constipated today, MOM prn given and pt later had a large formed BM on BSC. Plan for senna prn tonight. Evening RN aware.
[2018-10-02] MEDS: SENNOSIDES 8.6 MG TABLET 17.2 MG PO (20:14)
--- NOTE | 2018-10-02 22:58 | PC.NURSE ---
1500- assumed care of pt from outgoing shift. Pt awake and alert. cooperated with bedside report. Pt alert and oriented. pt cooperative with nursing staff. belonging and call light within reach. given prns per request. pt uses call light. will continue to monitor.
[2018-10-03] VITALS (9 sets, daily range): BP systolic 109–131; BP diastolic 63–81; PULSE 78–91; RESP 16–18; TEMP 36.7–36.9; O2SAT 96–100
[2018-10-03] MEDS: HYDROCODONE/ACET 10/325 TABLET 1 TAB PO ×6 (01:09→23:32)
[2018-10-03 05:49] LABS: Add Manual Diff / Slide Review NO; Basophils Absolute Auto 0 /uL (0-100); Basophils Percent Auto 0.5 % (0-2); Eosinophils Absolute Auto 100 /uL (0-450); Eosinophils Percent Auto 1.3 % (2-4); Hematocrit 33.3 % (36-46); Hemoglobin 11.4 g/dL (12.0-16.0); Lymphocytes Absolute Auto 1600 /uL (1100-4500); Lymphocytes Percent Auto 16.5 % (25-40); Mean Corpuscular HGB Conc 34.2 % (30-36); Mean Corpuscular Hemoglobin 32.5 PG (26-34); Mean Corpuscular Volume 95.1 fL (80-100); Monocytes Absolute Auto 900 /uL (0-900); Monocytes Percent Auto 9.8 % (3-14); Neutrophils Absolute Auto 6900 /uL (1500-7000); Neutrophils Percent Auto 71.9 % (50-75); Platelet Count 285 X10^3/uL (150-400); Red Cell Distribution Width 15.1 % (11.6-14.8); White Blood Cell Count 9.7 X10^3/uL (4.5-11.0)
[2018-10-03] MEDS: PANTOPRAZOLE 40 MG TABLET PO (06:08)
[2018-10-03 06:18] LABS: BUN Creatinine Ratio 7.1 (6-22); Blood Urea Nitrogen 5 mg/dL (7-17); Calcium 9.4 mg/dL (8.4-10.2); Carbon Dioxide 31 mmol/L (22-32); Chloride 94 mmol/L (98-107); Estimated Glomerular Filt Rate > 60.0 mL/min (>60); Glucose 89 mg/dL (80-110); HEMOLYSIS < 15 (0-50); Potassium 4.2 mmol/L (3.4-5.1); Sodium 133 mmol/L (137-145)
[2018-10-03] MEDS: MAGNESIUM HYDROXIDE 30 ML UDC PO (06:57)
[2018-10-03] MEDS: METOCLOPRAMIDE 10 MG/2 ML INJ 5 MG IV (07:44)
[2018-10-03] MEDS: SPIRONOLACTONE 50 MG TABLET 100 MG PO (09:39)
[2018-10-03] MEDS: SODIUM CHLORIDE 0.9% FLUSH 10 ML IV ×3 (09:39→20:58)
[2018-10-03] MEDS: HEPARIN 5,000 UNIT/ML VIAL 5000 UNIT SUBCUT ×2 (09:39→20:58)
[2018-10-03] MEDS: METHOTREXATE 20 MG IM (09:51)
--- NOTE | 2018-10-03 11:16 | CM.DPC ---
DCP Cont: Discussed patient at team rounds. Let Dr. Montenegro know that [facility] can go to [facility]. He stated that he will plan on writing orders then. Went ahead and called [facility] to confirmed. Spoke to Jose Juan in admissions. They are expecting her tomorrow. Will call them tomorrow and give update on time. P: DCP to continue to follow. Plan is for [facility] tomorrow. Will update patient. Coreen Anguiano RN/Caseworker
--- NOTE | 2018-10-03 12:15 | PT.IPTN ---
Current Diagnoses Fracture of one rib, left side, initial encounter for closed fracture (09/29/18) Fracture of one rib, unspecified side, initial encounter for closed fracture (09/29/18) Other specified fracture of left pubis, initial encounter for closed fracture (09/29/18) Physical Therapy Treatment Note M2 PT-IP Current Condition Start: 09/30/18 12:21 Freq: NEEDED Status: Active Protocol: Document 09/30/18 09:50 HH (Rec: 09/30/18 12:51 [email or web address]) Physical Therapy Current Condition Current Condition Evaluation Date 09/30/18 Treatment Diagnosis GLF with rib and L pubic rami fx, acue anemia, RA, difficulty in walking Onset Date 09/29/18 Weight Bearing Status Weight Bearing Status Weight Bear as Tolerated Allowed Weight Bearing Amount (enter % for L LE and R UE or #) (%) M3 PT-IP Subjective Start: 09/30/18 12:21 Freq: NEEDED Status: Active Protocol: Document 10/03/18 12:15 RCC (Rec: 10/03/18 12:41 RCC [email or web address]) Subjective Physical Therapy Visit Type Type Cancellation Notes pt eating lunch at this time, RN requesting assistance to mobilize pt and assist getting her into the shower once BUSINESS PROCESS ASSOCIATE has shower set up. Will attempt later this date to assist with the timing of her shower (ambulate prior to shower). Frequency of Treatment Frequency Of Treatment Twice a Day Treatment Plan Physical Therapy Treatment Plan Bed Mobility Training Transfer Training Gait Training Therapeutic Exercise Discharge Planning Recommendations To Nursing Amount of Assist Needed 1 Person Assist Discharge Recommendations PT Discharge Recommendations SNF Rehab
--- NOTE | 2018-10-03 12:17 | CM.DPC ---
DCP Cont: Updated patient and regarding going to [facility] tomorrow. She has not yet seen hospitalist yet today. They asked about a private room, confirmed with Jose Juan in admissions, they do not have private rooms at this time, as they are getting full. Stated that private rooms are reserved for isolation at this time. Let her know that patient had a room mate that was loud at another facility. They stated that they would try to put her in with a patient who is quiet. Did not yet know which room that patient would be going into. P: Patient is to be discharged tomorrow to [facility]. Will follow up with orders tomorrow and transport time. Will work on PASSR today. Coreen Anguiano RN/Brineyard Supervisor
--- NOTE | 2018-10-03 15:25 | PT.IPTN ---
Current Diagnoses Fracture of one rib, left side, initial encounter for closed fracture (09/29/18) Fracture of one rib, unspecified side, initial encounter for closed fracture (09/29/18) Other specified fracture of left pubis, initial encounter for closed fracture (09/29/18) Physical Therapy Treatment Note M2 PT-IP Current Condition Start: 09/30/18 12:21 Freq: NEEDED Status: Active Protocol: Document 09/30/18 09:50 HH (Rec: 09/30/18 12:51 HH [email or web address]) Physical Therapy Current Condition Current Condition Evaluation Date 09/30/18 Treatment Diagnosis GLF with rib and L pubic rami fx, acue anemia, RA, difficulty in walking Onset Date 09/29/18 Weight Bearing Status Weight Bearing Status Weight Bear as Tolerated Allowed Weight Bearing Amount (enter % for L LE and R UE or #) (%) M3 PT-IP Subjective Start: 09/30/18 12:21 Freq: NEEDED Status: Active Protocol: Document 10/03/18 15:25 GGD (Rec: 10/03/18 15:49 GGD [email or web address]) Subjective Physical Therapy Visit Type Type Treatment Note Visit Start Time 15:05 Visit Stop Time 15:25 Total Visit Minutes 20 Number of GENERAL DOC Visits 1 Physical Therapy Visit Comments Patient Comments Pt needs to use the bathroom. Therapy Pain Assessment Pain When Pain Assessed At Rest Pain Present Pain Present Pain Reported M4 PT-IP Mobility and Gait Start: 09/30/18 12:21 Freq: NEEDED Status: Active Protocol: Document 10/03/18 15:25 GGD (Rec: 10/03/18 15:49 GGD [email or web address]) PT-Bed Mobility Assessment Supine to Sit Supine to Sit Moderate Assistance 1 Person Assistance Head of Bed Elevated Bedrails Sit to Supine Sit to Supine Moderate Assistance 1 Person Assistance Bedrails Scooting Scooting to Edge of Bed Moderate Assistance Scooting Up and Down in Bed Maximum Assistance PT-Transfer Assessment Sit to and From Stand Sit to and from Stand Minimal Assistance 1 Person Assistance Use of Upper Extremities Equipment Transfer Assistive Device Gait Belt Front Wheeled Walker Orthotic/Prosthetic Devices or Brace: No Transfers Transfer Destination Bed Bedside Commode Transfer Technique Stand Step Pivot Transfer Ability Level of Assist Minimal Assistance 1 Person Assistance Use of Upper Extremities Gait Assessment Gait Gait Assistance Required: Moderate Assistance 1 Person Assist Distance (Feet) 10 Able to Maintain Weight Bearing Status Yes During Gait Assistive Devices Assistive Device Gait Belt Front Wheeled Walker Gait Deviations General Gait Pattern Antalgic Decreased Stride Length Decreased Feet Clearance Flexed Trunk Step-to Gait Factors Limiting Gait Function Factors Limiting Gait Function Decreased Activity Tolerance Decreased Strength Pain Poor Safety Awareness Comments Gait Comments PT need mod a with advance left LE. M5 PT-IP Objective Assessments Start: 09/30/18 12:21 Freq: NEEDED Status: Active Protocol: Document 09/30/18 09:50 HH (Rec: 09/30/18 12:51 HH [email or web address]) Orientation Orientation/Cognition Level of Alertness Alert Orientation Name Age Birthday Month Date Year Day of Week Place Situation Language Function Ability No Deficits Noted Safety Awareness Understands Safety Issues Decreased Safety Awareness Memory Description No Deficits Noted Gross Range of Motion Upper Extremity ROM Assessment Bilaterally Impaired Impairments significant ulnar deviation due to RA Lower Extremity ROM Assessment Bilaterally Impaired Impairments significant genu varus due to RA Strength Upper Extremity Strength Assessment Bilaterally Impaired Lower Extremity Strength Assessment Bilaterally Impaired Comments Strength Comments difficulty weight bearing on LLE due to pain Coordination Assessment Gross Coordination Gross Coordination WNL Sensation Assessment Sensation Gross Sensation WNL M6 PT-IP Treatment Start: 09/30/18 12:21 Freq: NEEDED Status: Active Protocol: Document 10/01/18 16:08 SA (Rec: 10/01/18 16:16 SA [id number]) Physical Therapy Treatment Exercises Exercises Ankle Pumps Gluteal Sets Quad Sets Heel Slides Education Education Provided Precautions Weight Bearing Status Post-Op Packet Safety M7 PT-IP Assessment and Plan Start: 09/30/18 12:21 Freq: NEEDED Status: Active Protocol: Document 10/03/18 15:25 GGD (Rec: 10/03/18 15:49 GGD [email or web address]) PT Summary Assessment and Plan Summary Assessment Summary Pt very slow to move and progress. She having increase in pain with mobility. She will need SNF rehab to improve mobility. Frequency of Treatment Frequency Of Treatment Twice a Day Treatment Plan Physical Therapy Treatment Plan Bed Mobility Training Transfer Training Gait Training Therapeutic Exercise Discharge Planning Recommendations To Nursing Amount of Assist Needed 1 Person Assist Discharge Recommendations PT Discharge Recommendations SNF Rehab
--- NOTE | 2018-10-03 17:51 | PM.PN.1 ---
Subjective Date Patient Seen: 10/03/18 Interval history: Mariely Man is a 77-year-old female with a past medical history significant for rheumatoid arthritis on methotrexate who presented to [facility] after a ground level fall complaining of left-sided rib cage and hip pain found to have left posterior 7th rib fracture and left superior and inferior pubic rami fracture and admitted for pain management and mobilization. Patient has pelvic and rib pain due to fractures but controlled on oral medication. Still has Mayo catheter and would like to maintain until improved ambulation. Exam Vital Signs (past 8 hours): - 10/03/18 13:40 10/03/18 15:55 10/03/18 16:00 Temperature 98.1 F 98.5 F Pulse Rate 90 90 Respiratory Rate 18 17 Blood Pressure 127/81 130/76 Pulse Oximetry 99 100 100 Oxygen Delivery Method Room Air Oxygen Flow Rate 0 Narrative Exam Narrative: General: Alert, pleasant and in no acute distress Lungs: Breathing nonlabored Abdomen: Soft, nontender Extremities: No distal edema Objective Labs Result Diagrams: 10/03/18 05:12 10/03/18 05:12 Labs: Laboratory Results - last 24 hr 10/03/18 10/03/18 05:12 05:12 WBC 9.7 RBC 3.50 L Hgb 11.4 L Hct 33.3 L MCV 95.1 MCH 32.5 MCHC 34.2 RDW 15.1 H Plt Count 285 Neut % (Auto) 71.9 Lymph % (Auto) 16.5 L [place] % (Auto) 9.8 Eos % (Auto) 1.3 L Baso % (Auto) 0.5 Neut # (Auto) 6900 Lymph # (Auto) 1600 [place] # (Auto) 900 Eos # (Auto) 100 Baso # (Auto) 0 Sodium 133 L Potassium 4.2 Chloride 94 L Carbon Dioxide 31 BUN 5 L Creatinine 0.70 Estimated GFR > 60.0 BUN/Creatinine Ratio 7.1 Glucose 89 Calcium 9.4 Assessment & Plan Plan: Assessment/Plan Narrative: Mariely Man is a 77-year-old female with a past medical history significant for rheumatoid arthritis on methotrexate who presented to [facility] after a ground level fall complaining of left-sided rib cage and hip pain found to have left posterior 7th rib fracture and left superior and inferior pubic rami fracture and admitted for pain management and mobilization. 1. Acute left superior and inferior pubic rami fracture and 7th posterior rib fracture, secondary to osteoporosis, present on admission. Active. -fractures occurred in setting of mechanical ground level fall with underlying osteoporosis. -Left hip x-ray demonstrates acute fracture involving left superior and inferior pubic rami with minimal displacement at fracture site. -Left rib x-ray demonstrated subtle nondisplaced left posterior seventh rib fracture. No focal infiltrate or pneumothorax. -Orthopedic surgery was consulted by ED physician. We appreciate their time and recommendations. -continue hydrocodone 10-325 mg every 4 hr as needed for moderate to severe pain and hydrocodone 2.5 mg every 6 hr as needed for breakthrough pain. -Ordered Zofran as needed for nausea. -Continue PT and OT evaluation and treatment. 2. Chronic debilitation, present on admission. Active. -Patient has rheumatoid arthritis and is frail and extremely limited in mobility at baseline and her walking with FWW only approximately 100 ft several times a day. Patient is 2 person assist with FWW and WBAT. -Continue PT and OT evaluation and treatment. 3. Acute anemia and leukocytosis, present on admission. Resolved. -Secondary to mechanical GLF. -No overt signs of bleeding or infection (WBC likely stress response). 4. Rheumatoid arthritis, chronic, present on admission. Stable. -Continue home methotrexate 0.8 mg IM once weekly on Saturdays. -Frail and severely limited at baseline due to RA. 5. GERD, chronic, present on admission. Stable. -Continue home omeprazole 40 mg daily. 6. Peripheral edema, present on admission. Stable. -Mild lower extremity edema to pretibial area bilaterally. The patient reports the edema has been worked up extensively and has been considered idiopathic. No history of CHF. -Continue spironolactone 100 mg daily. 7. 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 Patient will need skilled rehabilitation as she is extremely debilitated at baseline now with concurrent superior and inferior pubic rami fracture and left rib fracture mobility is severely limited and minimal. Quality VTE Deep Vein Thrombosis/Pulmonary Embolism Present on Admission: No
--- NOTE | 2018-10-03 19:01 | PC.NURSE ---
1500- assumed care of pt from outgoing shift. PT awake and alert. sitting in bed. states she very tired because she worked alot with PT and did alot of activity today. Pt denies pain that is intolerable at this time. uses call light. belongings and call light within reach. tele d/c per md order. will continue to monitor pt for safety.
[2018-10-03] MEDS: ONDANSETRON 4 MG/2 ML INJ IV (19:12)
[2018-10-04] MEDS: HYDROCODONE/ACET 10/325 TABLET 1 TAB PO ×3 (04:50→12:43)
[2018-10-04 05:28] VITALS: BP 119/83; PULSE 89; RESP 16; TEMP 36.7; O2SAT 97
[2018-10-04] MEDS: ONDANSETRON 4 MG/2 ML INJ IV (05:32)
[2018-10-04] MEDS: PANTOPRAZOLE 40 MG TABLET PO (05:47)
[2018-10-04 08:40] VITALS: BP 149/78; PULSE 98; RESP 16; TEMP 36.6; O2SAT 96
--- NOTE | 2018-10-04 08:57 | PM.DS.1 ---
History of Present Illness Chief complaint: GLF Narrative: Mariely Man is a 77-year-old female with a past medical history significant for rheumatoid arthritis on methotrexate who presented to [facility] after a ground level fall complaining of left-sided rib cage and hip pain. She reports that earlier today she tripped and fell backward over her bed skirt while making her bed. She landed on her left side and was in excrutiating pain to the extent she could not move or get up. Her found her and called 911. She reports she hit her head but did not lose consciousness. She currently endorses mild headache. She denies vision changes, lightheadedness, dizziness, slurring of speech, numbness or tingling, shortness of breath, chest pain, abdominal pain, dysuria, diarrhea, or constipation. She is actively vomiting while in the room despite antiemetic for nausea. She has broken several bones including left hip previously. She rates her pain related to her hip and ribcage without movement a +5/10 and with movement a +10/10. Discharge Providers Date of admission: 09/29/18 16:37 Primary care physician: Alen Garsia MD Consults: 09/29/18 21:29 Consult to Physical Therapy Evaluate & Treat Comment: WBAT bilat LE, WBAT bilat UE, pelvic fx, RCT rt (c Physician Instructions: Evaluate and Treat Discharge provider: Ian Montenegro MD Discharge Date: 10/04/18 Summary Discharge Diagnosis: 1. Acute left superior and inferior pubic rami fracture secondary to osteoporosis with ground level fall 2. Acute left 7th posterior rib fracture secondary to osteoporosis with ground level fall 3. 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 Peripheral edema, chronic, not due to CHF 5. Rheumatoid arthritis, chronic 6. Acute blood loss anemia, mild, secondary to pelvic fracture Hospital Course: Mariely Man is a 77-year-old female with a past medical history significant for rheumatoid arthritis on methotrexate who presented to [facility] after a ground level fall complaining of left-sided rib cage and hip pain found to have left posterior 7th rib fracture and left superior and inferior pubic rami fracture and admitted for pain management and mobilization. 1. Acute left superior and inferior pubic rami fracture and 7th posterior rib fracture, secondary to osteoporosis, present on admission. Active. -fractures occurred in setting of mechanical ground level fall with underlying osteoporosis. -Left hip x-ray demonstrates acute fracture involving left superior and inferior pubic rami with minimal displacement at fracture site. -Left rib x-ray demonstrated subtle nondisplaced left posterior seventh rib fracture. No focal infiltrate or pneumothorax. -Orthopedic surgery was consulted by ED physician. We appreciate their time and recommendations. -continue hydrocodone 10-325 mg every 4 hr as needed for moderate to severe pain and hydrocodone 2.5 mg every 6 hr as needed for breakthrough pain. -Ordered Zofran as needed for nausea. -Continue PT and OT evaluation and treatment at long term facility. 2. Chronic debilitation, present on admission. Active. -Patient has rheumatoid arthritis and is frail and extremely limited in mobility at baseline and her walking with FWW only approximately 100 ft several times a day. Patient is 2 person assist with FWW and WBAT. -Continue PT and OT evaluation and treatment. 3. Acute anemia and leukocytosis, anemia due to blood loss from pelvic fracture, present on admission. Resolved. -Secondary to mechanical GLF. -No overt signs of bleeding or infection (WBC likely stress response). 4. Rheumatoid arthritis, chronic, present on admission. Stable. -Continue home methotrexate 0.8 mg IM once weekly on Saturdays. -Frail and severely limited at baseline due to RA. 5. GERD, chronic, present on admission. Stable. -Continue home omeprazole 40 mg daily. 6. Peripheral edema, present on admission. Stable. -Mild lower extremity edema to pretibial area bilaterally. The patient reports the edema has been worked up extensively and has been considered idiopathic. No history of CHF. -Continue spironolactone 100 mg daily. 7. 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 Patient will need skilled rehabilitation as she is extremely debilitated at baseline now with concurrent superior and inferior pubic rami fracture and left rib fracture mobility is severely limited and minimal. Status at Discharge Overall status at discharge: patient is not back to baseline Time Spent with Patient Greater than 30 minutes Exam Vital Signs (past 8 hours): - 10/04/18 05:28 Temperature 98.1 F Pulse Rate 89 Respiratory Rate 16 Blood Pressure 119/83 Pulse Oximetry 97 Oxygen Delivery Method Room Air Oxygen Flow Rate 0 Objective Labs Result Diagrams: 10/03/18 05:12 10/03/18 05:12 Discharge Plan Discharge Plan Patient Disposition: SNF Transfer to: [facility] Consult as needed: Dental, Hearing, Mental health, Podiatry and Vision I certify the postop hospital long term care is medically necessary on a continuing basis for any conditions for which he/ she received care during this hospitalization.: Yes The receiving facility has agreed to accept transfer and provide medical treatment.: Yes Discharge Med Rec/Prescriptions Prescriptions: New hydrocodone-acetaminophen 5-325 mg Tablet 0.5 tab PO Q6H PRN (Reason: Breakthrough Pain only) Qty: 30 RF: 0 alendronate 70 mg tablet 70 mg PO QWEEK Qty: 4 RF: 0 Continue methotrexate sodium 25 mg/mL solution 0.8 ml IM QWEEK RF: 0 omeprazole 40 mg capsule,delayed release(DR/EC) 40 mg PO DAILY RF: 0 spironolactone 50 mg tablet 100 mg PO QAM RF: 0 nystatin 100,000 unit/gram Ointment 1 applic TOPICAL BID RF: 0 nitrofurantoin macrocrystal 100 mg Capsule 100 mg PO Q OTHER DAY RF: 0 ondansetron 4 mg Tablet,Disintegrating 4 mg PO Q4H PRN (Reason: Nausea) RF: 0 hydrocodone-acetaminophen 10-325 mg Tablet 1 tab PO Q4H PRN (Reason: Back Pain) Qty: 60 RF: 0 Follow up/Referrals: Alen Garsia MD [Primary Care Provider] - Provider Discharge Instructions Diet: Diet as Tolerated and Regular Special Rehabilitation Services Reason for rehabilitation: Other Rehab type: Physical therapy and Occupational therapy Visit Report/Discharge Packet Instructions: DI for Pelvic Fracture, DI for Rib Fracture, How to Prevent Falls Visit Report Forms: Stroke Signs & Symptoms Discharge Data Primary Care Provider: lAen Garsia Attending Provider: Emperatriz Montenegro Admit Date/Time: 09/29/18 16:37 Quality VTE Deep Vein Thrombosis/Pulmonary Embolism Present on Admission: No
[2018-10-04] MEDS: ONDANSETRON 4 MG ODT PO ×2 (08:58→12:07)
[2018-10-04] MEDS: SPIRONOLACTONE 50 MG TABLET 100 MG PO (08:59)
[2018-10-04] MEDS: SODIUM CHLORIDE 0.9% FLUSH 10 ML IV (08:59)
--- NOTE | 2018-10-04 09:02 | P.DS_ITS ---
History of Present Illness Chief complaint: GLF Narrative: Mariely Man is a 77-year-old female with a past medical history significant for rheumatoid arthritis on methotrexate who presented to [facility] after a ground level fall complaining of left-sided rib cage and hip pain. She reports that earlier today she tripped and fell backward over her bed skirt while making her bed. She landed on her left side and was in excrutiating pain to the extent she could not move or get up. Her found her and called 911. She reports she hit her head but did not lose consciousness. She currently endorses mild headache. She denies vision changes, lightheadedness, dizziness, slurring of speech, numbness or tingling, shortness of breath, chest pain, abdominal pain, dysuria, diarrhea, or constipation. She is actively vomiting while in the room despite antiemetic for nausea. She has broken several bones including left hip previously. She rates her pain related to her hip and ribcage without movement a +5/10 and with movement a +10/10. Discharge Providers Date of admission: 09/29/18 16:37 Primary care physician: Alen Garsia MD Consults: 09/29/18 21:29 Consult to Physical Therapy Evaluate & Treat Comment: WBAT bilat LE, WBAT bilat UE, pelvic fx, RCT rt (c Physician Instructions: Evaluate and Treat Discharge provider: Ian Montenegro MD Discharge Date: 10/04/18 Summary Discharge Diagnosis: 1. Acute left superior and inferior pubic rami fracture secondary to osteoporosis with ground level fall 2. Acute left 7th posterior rib fracture secondary to osteoporosis with ground level fall 3. 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 Peripheral edema, chronic, not due to CHF 5. Rheumatoid arthritis, chronic 6. Acute blood loss anemia, mild, secondary to pelvic fracture Hospital Course: Mariely Man is a 77-year-old female with a past medical history significant for rheumatoid arthritis on methotrexate who presented to [facility] after a ground level fall complaining of left-sided rib cage and hip pain found to have left posterior 7th rib fracture and left superior and inferior pubic rami fracture and admitted for pain management and mobilization. 1. Acute left superior and inferior pubic rami fracture and 7th posterior rib fracture, secondary to osteoporosis, present on admission. Active. -fractures occurred in setting of mechanical ground level fall with underlying osteoporosis. -Left hip x-ray demonstrates acute fracture involving left superior and inferior pubic rami with minimal displacement at fracture site. -Left rib x-ray demonstrated subtle nondisplaced left posterior seventh rib fracture. No focal infiltrate or pneumothorax. -Orthopedic surgery was consulted by ED physician. We appreciate their time and recommendations. -continue hydrocodone 10-325 mg every 4 hr as needed for moderate to severe pain and hydrocodone 2.5 mg every 6 hr as needed for breakthrough pain. -Ordered Zofran as needed for nausea. -Continue PT and OT evaluation and treatment at [facility] facility. 2. Chronic debilitation, present on admission. Active. -Patient has rheumatoid arthritis and is frail and extremely limited in mobility at baseline and her walking with FWW only approximately 100 ft several times a day. Patient is 2 person assist with FWW and WBAT. -Continue PT and OT evaluation and treatment. 3. Acute anemia and leukocytosis, anemia due to blood loss from pelvic fracture , present on admission. Resolved. -Secondary to mechanical GLF. -No overt signs of bleeding or infection (WBC likely stress response). 4. Rheumatoid arthritis, chronic, present on admission. Stable. -Continue home methotrexate 0.8 mg IM once weekly on Saturdays. -Frail and severely limited at baseline due to RA. 5. GERD, chronic, present on admission. Stable. -Continue home omeprazole 40 mg daily. 6. Peripheral edema, present on admission. Stable. -Mild lower extremity edema to pretibial area bilaterally. The patient reports the edema has been worked up extensively and has been considered idiopathic. No history of CHF. -Continue spironolactone 100 mg daily. 7. 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 Patient will need skilled rehabilitation as she is extremely debilitated at baseline now with concurrent superior and inferior pubic rami fracture and left rib fracture mobility is severely limited and minimal. Status at Discharge Overall status at discharge: patient is not back to baseline Time Spent with Patient Greater than 30 minutes Exam Vital Signs (past 8 hours): - 10/04/18 05:28 Temperature 98.1 F Pulse Rate 89 Respiratory Rate 16 Blood Pressure 119/83 Pulse Oximetry 97 Oxygen Delivery Method Room Air Oxygen Flow Rate 0 Objective Labs Result Diagrams: 10/03/18 05:12 10/03/18 05:12 Discharge Plan Discharge Plan Patient Disposition: SNF Transfer to: [facility] Consult as needed: Dental, Hearing, Mental health, Podiatry and Vision I certify the postop hospital [facility] care is medically necessary on a continuing basis for any conditions for which he/ she received care during this hospitalization.: Yes The receiving facility has agreed to accept transfer and provide medical treatment.: Yes Discharge Med Rec/Prescriptions Prescriptions: New hydrocodone-acetaminophen 5-325 mg Tablet 0.5 tab PO Q6H PRN (Reason: Breakthrough Pain only) Qty: 30 RF: 0 alendronate 70 mg tablet 70 mg PO QWEEK Qty: 4 RF: 0 Continue methotrexate sodium 25 mg/mL solution 0.8 ml IM QWEEK RF: 0 omeprazole 40 mg capsule,delayed release(DR/EC) 40 mg PO DAILY RF: 0 spironolactone 50 mg tablet 100 mg PO QAM RF: 0 nystatin 100,000 unit/gram Ointment 1 applic TOPICAL BID RF: 0 nitrofurantoin macrocrystal 100 mg Capsule 100 mg PO Q OTHER DAY RF: 0 ondansetron 4 mg Tablet,Disintegrating 4 mg PO Q4H PRN (Reason: Nausea) RF: 0 hydrocodone-acetaminophen 10-325 mg Tablet 1 tab PO Q4H PRN (Reason: Back Pain) Qty: 60 RF: 0 Follow up/Referrals: Alen Garsia MD [Primary Care Provider] - Provider Discharge Instructions Diet: Diet as Tolerated and Regular Special Rehabilitation Services Reason for rehabilitation: Other Rehab type: Physical therapy and Occupational therapy Visit Report/Discharge Packet Instructions: DI for Pelvic Fracture, DI for Rib Fracture, How to Prevent Falls Visit Report Forms: Stroke Signs & Symptoms Discharge Data Primary Care Provider: Alen Garsia Attending Provider: Emperatriz Montenegro Admit Date/Time: 09/29/18 16:37 Quality VTE Deep Vein Thrombosis/Pulmonary Embolism Present on Admission: No
[2018-10-04] MEDS: HEPARIN 5,000 UNIT/ML VIAL 5000 UNIT SUBCUT (09:04)
--- NOTE | 2018-10-04 09:21 | CM.DPC ---
DCP Cont: Dr. Montenegro has written discharge orders, patient is aware, was inquiring upon what time she would be picked up. Called and spoke to Jose Juan, at [facility]. He checked with transportation. He called back and stated that cotton picker time will be approximately between 2:00 to 2:30. Updated main white board and nurse, Denise, as well as charge nurse, Daisy. Awaiting signed med sheet and, PASSR and Discharge Summary are complete. Will fax as soon as med list is done. Patient signed updated Medicare form as well. P: Patient is to go to [facility] today. Coreen Anguiano RN/Rating Clerk
[2018-10-04 09:50] VITALS: O2SAT 96
--- NOTE | 2018-10-04 14:42 | PC.NURSE ---
Transfer to SNF: (Late entry, left at approx 1315) IV dc'd intact. [facility] left in place r/t poor mobility. Pre-medicated with Vicodin prior to transfer. All personal belongings packed and sent with patient including glasses, cellphone, credit intern, clothing, etc. Assisted into wheelchair. Transfer packet given to transport staff, including scripts for Vicodin and Zofran. Taken out by transport staff. Report called to Violette at [facility].
== END 2018-10-04 13:15 | DRG 543 ==
LOC: ED 16:29 → AC 16:38
PROVIDERS: Admitting Provider Internal Medicine; Emergency Provider Nurse Practitioner Family; PCP Internal Medicine; Visit Provider Internal Medicine
DX: M80.052A Age-related osteoporosis with current pathological fracture, left femur, initial encounter for fracture (principal); D62 Acute posthemorrhagic anemia; D64.9 Anemia, unspecified; M06.9 Rheumatoid arthritis, unspecified; D72.829 Elevated white blood cell count, unspecified; W18.30XA Fall on same level, unspecified, initial encounter; Y92.003 Bedroom of unspecified non-institutional (private) residence as the place of occurrence of the external cause; Z87.891 Personal history of nicotine dependence; K21.9 Gastro-esophageal reflux disease without esophagitis; R60.0 Localized edema; M80.00XA Age-related osteoporosis with current pathological fracture, unspecified site, initial encounter for fracture
CPT/HCPCS: 36415; 51701; 71101; 73502; 73552; 80048; 80053; 81003; 81015; 83735; 85025; 96366; 96374; 97116; 97162; 97530; 99284; J1170; J1644; J2405; J2765; J9250

== ENCOUNTER → 2019-02-17 10:36 | Outpatient (CLI) | payer MEDICARE, OTHER, SELFPAY ==
[2018-09-29 20:19] VITALS: BMI 20.6
--- NOTE | 2019-02-17 | DI.RAD.S_ITS ---
PROCEDURE: XR FOOT LT 2V INDICATIONS: L FOOT ULCER TECHNIQUE: 2 views of the foot were acquired. COMPARISON: [facility], CR, XR TOE(S) LEFT, 07/29/2017, 14:38. FINDINGS: Bones: No fractures or dislocations. No suspicious bony lesions. Prior fusion first MTP joint, chronic degenerative changes stable over time. Soft tissues: No tibiotalar joint effusion. Achilles tendon appears normal. Ankle level small vessel calcifications are noted consistent with long-standing diabetes. IMPRESSION: The clinical history provided indicates foot ulceration but the area of clinical concern is not defined. Osteomyelitis is not found. No change from the degenerative changes and fusion previously present 07/29/17. Incidental is made of small vessel calcifications at the ankle level, likely representing evidence of long-standing diabetes. Dictated by: Oliver Staton M.D. on 02/17/2019 at 11:14 Approved by: Oliver Staton M.D. on 02/17/2019 at 11:17
== END ==
PROVIDERS: PCP Internal Medicine; Visit Provider Internal Medicine
DX: L97.529 Non-pressure chronic ulcer of other part of left foot with unspecified severity (principal)
CPT/HCPCS: 73620

== ENCOUNTER → 2019-03-01 09:46 | Outpatient (CLI) | payer MEDICARE, OTHER, SELFPAY ==
[2018-09-29 20:19] VITALS: BMI 20.6
== END ==
PROVIDERS: PCP Internal Medicine; Visit Provider Podiatrist Primary Podiatric Medicine
DX: L84 Corns and callosities (principal); M79.672 Pain in left foot; L98.8 Other specified disorders of the skin and subcutaneous tissue
CPT/HCPCS: 99203; 99213

== ENCOUNTER → 2019-06-02 09:00 | Oncology outpatient (ONC) | payer MEDICARE, OTHER, SELFPAY ==
[2018-06-19 09:52] VITALS: BP 125/68; PULSE 79; RESP 16; TEMP 36.8
[2018-06-19] MEDS: ZOLEDRONIC ACID 5 MG in SODIUM CHLORIDE 0.9% 100 ML 318.75 ML IV (09:54)
[2019-06-02 09:18] VITALS: BP 143/75; PULSE 70; RESP 20; TEMP 36.6; O2SAT 100
[2019-06-02] MEDS: ZOLEDRONIC ACID 5 MG in SODIUM CHLORIDE 0.9% 100 ML 318.75 ML IV (09:20)
== END ==
PROVIDERS: PCP Internal Medicine; Referring Provider Internal Medicine; Visit Provider Internal Medicine
DX: M81.0 Age-related osteoporosis without current pathological fracture (principal); M05.40 Rheumatoid myopathy with rheumatoid arthritis of unspecified site
CPT/HCPCS: 96365; 96374; J3489

== ENCOUNTER → 2019-09-06 11:21 | Outpatient (CLI) | payer MEDICARE, OTHER, SELFPAY ==
[2018-09-29 20:19] VITALS: BMI 20.6
--- NOTE | 2019-09-06 | DI.RAD.S_ITS ---
PROCEDURE: XR CHEST 2V INDICATIONS: Acute bronchitis, unspecified TECHNIQUE: 2 views of the chest were acquired. COMPARISON: [facility], , CHEST 1 VIEW, 06/19/2016, 9:52. FINDINGS: Surgical changes and devices: None. Lungs and pleura: Lungs are diffusely hyperinflated and hyperlucent with coarse interstitial markings. No focal consolidations. No pleural effusions or pneumothorax. Mediastinum: Mediastinal contours are normal. Heart size is normal. Bones and chest wall: Interval sclerotic change and slight subacute appearing rib deformities involving the left posterior lateral rib arcs 5, 6, (with sclerosis at) 7. Possible upper lumbar vertebral body fracture. Soft tissues appear unremarkable. IMPRESSION: 1. Hyperinflated lungs with changes of emphysema/asthma. 2. Interval left rib bony changes. Correlate with history of trauma or primary neoplasm. 3. Chronic appearing upper lumbar compression fracture. Dictated by: Alejandrina Abbasi M.D. on 09/06/2019 at 15:10 Approved by: Alejandrina Abbasi M.D. on 09/06/2019 at 15:13
== END ==
PROVIDERS: PCP Internal Medicine; Visit Provider Student in an Organized Health Care Education/Training Program
DX: J20.9 Acute bronchitis, unspecified (principal)
CPT/HCPCS: 71046

== ENCOUNTER 2019-09-14 16:48 | Inpatient (IN) | payer MEDICARE, OTHER, SELFPAY ==
[2018-09-29 20:19] VITALS: BMI 20.6
[2019-09-14] VITALS (13 sets, daily range): BP systolic 106–139; BP diastolic 50–78; PULSE 98–126; RESP 16–29; TEMP 36.3–39.4; O2SAT 92–99; BMI 42.0
--- NOTE | 2019-09-14 17:11 | DI.RAD.S_ITS ---
PROCEDURE: XR CHEST 1V INDICATIONS: suspected sepsis TECHNIQUE: One view of the chest was acquired. COMPARISON: [facility], CT, PE STUDY (CTA CHEST), 10/29/2013, 15:25. [facility], CR, CHEST 1 VIEW, 06/27/2014, 1:43. [facility], CR, CHEST 1 VIEW, 06/19/2016, 9:52. [facility], , XR CHEST 2V, 09/06/2019, 11:21. FINDINGS: Surgical changes and devices: None. Lungs and pleura: There is mild focal consolidation seen within both medial lungs inferiorly, right worse than left. No pneumothorax or pleural effusions are seen. Mediastinum: The cardiac contours are within normal limits. The aorta demonstrates calcification and tortuosity. Bones and chest wall: Fractures are seen involving left posterior and lateral ribs. Age-appropriate bony degenerative changes are seen. Mild dextroconvex scoliotic curvature is seen. Overlying soft tissues appear unremarkable. IMPRESSION: Consolidations can be seen involving the medial aspects of the lungs inferiorly, right worse than left and given the history, pneumonia is suspected. Remote appearing right-sided rib fractures are seen. Dictated by: Timothy Dimas M.D. on 09/14/2019 at 16:56 Approved by: Timothy Dimas M.D. on 09/14/2019 at 16:58
[2019-09-14] MEDS: SODIUM CHLORIDE 0.9% 1,000 ML 1000 ML IV (17:26)
[2019-09-14] MEDS: ACETAMINOPHEN 325 MG TABLET 975 MG PO (17:26)
[2019-09-14 17:52] LABS: Prothrombin Time 11.7 SECONDS (10.1-12.7)
[2019-09-14 17:55] LABS: PTT Partial Thromboplastin Tim 31 SECONDS (26.4-36.2)
[2019-09-14 17:56] LABS: Add Manual Diff / Slide Review NO; Basophils Absolute Auto 100 /uL (0-100); Basophils Percent Auto 0.4 % (0-2); Eosinophils Absolute Auto 0 /uL (0-450); Eosinophils Percent Auto 0.1 % (2-4); Hematocrit 35.3 % (36-46); Hemoglobin 11.9 g/dL (12.0-16.0); Lymphocytes Absolute Auto 1400 /uL (1100-4500); Lymphocytes Percent Auto 6.8 % (25-40); Mean Corpuscular HGB Conc 33.7 % (30-36); Mean Corpuscular Hemoglobin 32.3 PG (26-34); Mean Corpuscular Volume 95.9 fL (80-100); Monocytes Absolute Auto 1100 /uL (0-900); Monocytes Percent Auto 5.7 % (3-14); Neutrophils Absolute Auto 17400 /uL (1500-7000); Platelet Count 320 X10^3/uL (150-400); Red Blood Cell Count 3.68 X10^6/uL (4.0-5.2); Red Cell Distribution Width 15.6 % (11.6-14.8)
[2019-09-14 17:58] LABS: Alanine Aminotransferase 11 IU/L (<35); Albumin 3.9 g/dL (3.5-5.0); Albumin Globulin Ratio 1.6 (1.0-2.8); Alkaline Phosphatase 56 U/L (38-126); Aspartate Aminotransferase 22 IU/L (14-36); Bilirubin Total 0.7 mg/dL (0.2-1.3); Blood Urea Nitrogen 8 mg/dL (7-17); Carbon Dioxide 28 mmol/L (22-32); Chloride 90 mmol/L (98-107); Estimated Glomerular Filt Rate > 60.0 mL/min (>60); Globulin 2.5 g/dL (1.7-4.1); Glucose 109 mg/dL (80-110); HEMOLYSIS < 15 (0-50); Lipase 21 U/L (23-300); Potassium 3.6 mmol/L (3.4-5.1); Sodium 128 mmol/L (137-145); Total Protein 6.4 g/dL (6.3-8.2)
--- NOTE | 2019-09-14 18:05 | ED_ITS ---
HPI - Fever <NIRMAL Byers - Last Filed: 09/14/19 21:06> General Chief Complaint: Fever Stated Complaint: Flu Time Seen by Provider: 09/14/19 17:06 Source: EMS Mode of arrival: EMS Limitations: no limitations History of Present Illness HPI Narrative: This is a 78-year-old female, nonsmoker, who presents to ED with significant other with nonproductive cough which started a week ago with fever which noticed today. Reports chills, nausea/vomiting, diarrhea, chest discomfort with coughing. Patient was evaluated by her PCP, Dr. Ennis, and was prescribed with guaifenesin with AC. Patient takes prednisone 10 mg daily rheumatoid arthritis. Patient denies blood in her stool or abdominal pain. Significant other states she was hospitalized a couple of years ago with sepsis from UTI. Related Data Home Medications Medication Instructions Recorded Confirmed methotrexate sodium 0.8 ml IM QWEEK 09/29/18 09/15/19 nitrofurantoin macrocrystal 100 mg PO Q OTHER DAY 09/29/18 09/15/19 nystatin 1 applic TOPICAL BID 09/29/18 09/15/19 omeprazole 40 mg PO DAILY 09/29/18 09/15/19 ondansetron 4 mg PO Q4H PRN 09/29/18 09/15/19 spironolactone 100 mg PO QAM 09/29/18 09/15/19 Previous Rx's Medication Instructions Recorded alendronate 70 mg PO QWEEK #4 tab 10/04/18 hydrocodone-acetaminophen 0.5 tab PO Q6H PRN #30 tab 10/04/18 hydrocodone-acetaminophen 1 tab PO Q4H PRN #60 tab 10/04/18 guaifenesin [Mucus Relief ER] 600 mg PO Q12HR PRN 7 Days #14 tab 09/17/19 levofloxacin 750 mg PO DAILY 4 Days #4 tab 09/17/19 metoclopramide HCl 5 mg PO TID PRN 7 Days #20 tab 09/17/19 prednisone 10 mg PO DAILY 30 Days tab 09/17/19 Allergies Allergy/AdvReac Type Severity Reaction Status Date / Time morphine AdvReac Severe Vomiting Verified 10/02/18 07:51 meperidine [MEPERIDINE] AdvReac Unknown VOMITING Verified 10/02/18 07:51 oxycodone [OXYCODONE] AdvReac Unknown NAUSEA Verified 09/29/18 13:53 Review of Systems <NIRMAL Byers - Last Filed: 09/14/19 21:06> Review of Systems Narrative: General: Reports fever, chills, fatigue, malaise. HEENT: Denies sinus pain, ear pain, sore throat, difficulty swallowing, dizziness. Respiratory: Denies dyspnea, cough, wheezing, hemoptysis, sputum. Cardiovascular: Denies chest pain, palpitations, orthopnea, edema. Gastrointestinal: Reports diarrhea, nausea, vomiting. Denies abdominal pain, constipation, melena. : Denies dysuria, frequency, incontinence, hematuria, urinary retention. Musculoskeletal: Denies weakness, joint pain or bony pain. Skin: Denies rash, skin lesions, or other. Neurologic: Denies weakness, headache, numbness, change in speech, confusion, seizures, incoordination. Psychiatric: No concerning psychosocial issues. 12-point review of systems is negative except for those stated above. Patient History <NIRMAL Byers - Last Filed: 09/14/19 21:06> Medical History GERD (gastroesophageal reflux disease) (Acute) Peripheral edema (Acute) Rheumatoid arthritis (Acute) Surgical History History of hand surgery (Acute) History of total left knee replacement (Acute) History of total right knee replacement (Acute) Status post total hip replacement, left (Acute) Status post wrist surgery (Acute) Family History Mother No problems noted. Father No problems noted. Social History household members: spouse Smoking Status: Never smoker alcohol intake: never Smoking Status: Never smoker Substance Use Type: does not use Exam <NIRMAL Byers - Last Filed: 09/14/19 21:06> Narrative Exam Narrative: GEN: Alert, oriented x 3, appears to be tired and thin appearing female, and in no acute distress. Head: Normal cephalic, atraumatic. No scalp or temporal tenderness, palpable mass or rash. EYES: Pupils are equal, round, and reactive to light and accommodation. Extraocular muscles are intact bilaterally. There is no subconjunctival hemorrhage, exudate and sclera non-icteric. ENT: Bilateral auditory canals and tympanic membranes clear. Hearing grossly intact. Nose without bleeding, purulent discharge or deviation. Facial sinuses nontender to palpate. Mucous membrane moist, no mucosal lesion. Throat without erythema, tonsillar hypertrophy or exudate. Uvula in midline, airway patent. Neck: Trachea in midline. No JVD, non-tender without lymphadenopathy. No masses or thyroid megaly. Supple, non-tender and no meningeal signs. CARDIAC: Normal regular rate and rhythm without murmurs, gallops, or rubs. No chest wall tenderness. No peripheral edema, cyanosis or pallor. Capillary refill is less than 2 seconds. RESPIRATORY: Lungs crackles in the right lower lobes and decreased to auscultate in all lobes. Frequent moist coughing witnessed. No wheezes or rhonchi. No stridor, respiratory distress, increase work of breathing, or accessary muscle used. ABD: Abdomen soft, nontender and non-distended. No guarding or rebound tenderness to palpate. Bowel sounds are normal in all 4 quadrants. There is no palpable masses or organomegaly. EXT: Full painless ROM of all extremities with no loss of sensation, strength, effusion or edema. SKIN: Hot, dry, normal color for patient. No erythema, lesions or rash over visible areas. BACK: Nontender without deformity or crepitance. No flank tenderness. NEUROLOGICAL: Alert and oriented to place, time and person. Sensation and motor function intact bilaterally. No facial droops, dysphasia. PSYCHIATRIC: Good judgement and reason, without hallucinations, abnormal affect or abnormal behaviors during the examination. Initial Vital Signs Initial Vital Signs: Vital Signs Temperature 102 F H 09/14/19 16:50 Pulse Rate 123 H 09/14/19 16:50 Respiratory Rate 20 09/14/19 16:50 Blood Pressure 139/78 09/14/19 16:50 Pulse Oximetry 99 09/14/19 16:50 <Britta Ingram MD - Last Filed: 09/20/19 07:22> Initial Vital Signs Initial Vital Signs: Vital Signs Temperature 102 F H 09/14/19 16:50 Pulse Rate 123 H 09/14/19 16:50 Respiratory Rate 20 09/14/19 16:50 Blood Pressure 139/78 09/14/19 16:50 Pulse Oximetry 99 09/14/19 16:50 Scores <Johnny EmeryNIRMAL Galdamez - Last Filed: 09/14/19 21:06> CURB-65 Confusion: No BUN >19mg/dL (>7mmol/L): No Respiratory rate greater or equal to 30: No SBP <90mmHg or DBP less or equal to 60mmHg: No Age 65 or Older: Yes CURB-65 Total: 1 Score 0-1 Outpatient care, Score 2 Inpt vs. Obs, Score 3 or over Inpt admit with ICU for score of 4-5 GCS Anthony coma scale eye opening: Spontaneous [place] coma scale verbal response: Orientated [place] coma scale motor response: Obey commands [place] coma scale total score: 15 Course <Johnny EmeryNIRMAL Galdamez - Last Filed: 09/14/19 21:06> Course Course Narrative: Elevated WBC with neutrophils, hyponatremia/chloride, pneumonia per Xray test Decision to Admit Date: 09/14/19 Decision to Admit time: 18:06 Orders Ordered: Discontinued Medications Acetaminophen (Tylenol) 975 mg PO NOW ONE Stop: 09/14/19 17:15 Last Admin: 09/14/19 17:26 Dose: 975 mg Documented by: MELISSA Acetaminophen (Tylenol) 650 mg PO Q6HR PRN PRN Reason: Fever/Mild Pain (1-3) Hydrocodone Bitart/Acetaminophen (Dora 5/325) 1 tab PO Q6HR PRN PRN Reason: Pain, Moderate (4-6) Last Admin: 09/15/19 08:00 Dose: 1 tab Documented by: Admin: 09/15/19 03:20 Dose: 1 tab Documented by: KGALLSHERIF Hydrocodone Bitart/Acetaminophen (Dora 5/325) 2 tab PO Q6HR PRN PRN Reason: Pain, Severe (7-10) Hydrocodone Bitart/Acetaminophen (Dora 5/325) 1 tab PO Q4HR PRN PRN Reason: Pain, Moderate (4-6) Last Admin: 09/17/19 09:21 Dose: 1 tab Documented by: Admin: 09/17/19 02:51 Dose: 1 tab Documented by: Admin: 09/16/19 22:55 Dose: 1 tab Documented by: Admin: 09/16/19 19:22 Dose: 1 tab Documented by: Admin: 09/16/19 14:52 Dose: 1 tab Documented by: Admin: 09/16/19 10:43 Dose: 1 tab Documented by: Admin: 09/16/19 04:22 Dose: 1 tab Documented by: Admin: 09/16/19 00:03 Dose: 1 tab Documented by: Admin: 09/15/19 20:12 Dose: 1 tab Documented by: Admin: 09/15/19 16:04 Dose: 1 tab Documented by: Admin: 09/15/19 11:57 Dose: 1 tab Documented by: LEOBARDO Al Hydrox/Mg Hydrox/Simethicone (Maalox Plus) 30 ml PO Q6HR PRN PRN Reason: Dyspepsia Albuterol (Ventolin) 2.5 mg INH [id number] PRN PRN Reason: Shortness Of Breath Albuterol/Ipratropium (Duoneb) 3 ml INH NOW ONE Stop: 09/14/19 17:35 Last Admin: 09/14/19 18:09 Dose: 3 ml Documented by: BRANT Bisacodyl (Dulcolax) 10 mg NH DAILY PRN PRN Reason: Constipation Calcium Carbonate (Tums) 1,000 mg PO Q4HR PRN PRN Reason: Dyspepsia Docusate Sodium (Colace) 100 mg PO BID PRN PRN Reason: Constipation Guaifenesin (Mucinex) 600 mg PO Q12HR PRN PRN Reason: Cough Last Admin: 09/15/19 03:20 Dose: 600 mg Documented by: KGALLAG Heparin Sodium (Porcine) (Heparin) 5,000 unit SUBCUT BID ALDO Last Admin: 09/17/19 08:18 Dose: 5,000 unit Documented by: Admin: 09/16/19 22:16 Dose: 5,000 unit Documented by: Admin: 09/16/19 10:42 Dose: 5,000 unit Documented by: Admin: 09/15/19 20:13 Dose: 5,000 unit Documented by: Admin: 09/15/19 07:59 Dose: 5,000 unit Documented by: LEOBARDO Sodium Chloride (Normal Saline 0.9%) 1,000 mls @ 1,000 mls/hr IV BOLUS ONE Stop: 09/14/19 18:10 Last Infusion: 09/14/19 19:17 Dose: 0 mls/hr Documented by: Admin: 09/14/19 17:26 Dose: 1,000 mls/hr Documented by: MELISSA Ceftriaxone Sodium/Dextrose (Rocephin) 1 gm in 50 mls @ 100 mls/hr IV NOW ONE Stop: 09/14/19 18:38 Last Infusion: 09/14/19 18:59 Dose: 0 mls/hr Documented by: Admin: 09/14/19 18:19 Dose: 100 mls/hr Documented by: MELISSA Azithromycin 500 mg/ Dextrose 250 mls @ 250 mls/hr IV NOW ONE Stop: 09/14/19 19:31 Last Infusion: 09/14/19 20:34 Dose: 250 mls/hr Documented by: Admin: 09/14/19 19:49 Dose: 250 mls/hr Documented by: MELISSA Sodium Chloride (Normal Saline 0.9%) 1,000 mls @ 125 mls/hr IV CONT ALDO Stop: 09/14/19 22:30 Last Infusion: 09/14/19 20:18 Dose: 125 mls/hr Documented by: Admin: 09/14/19 19:48 Dose: 125 mls/hr Documented by: MELISSA Sodium Chloride (Normal Saline 0.9%) 1,000 mls @ 50 mls/hr IV CONT ALDO Last Admin: 09/15/19 00:30 Dose: Not Given Documented by: KGALLAG Azithromycin 500 mg/ Dextrose 250 mls @ 250 mls/hr IV Q24H ALDO Stop: 09/16/19 19:01 Ceftriaxone Sodium/Dextrose (Rocephin) 2 gm in 50 mls @ 100 mls/hr IV Q24H ALDO Levofloxacin (Levaquin) 750 mg in 150 mls @ 100 mls/hr IV Q48H ALDO Last Infusion: 09/15/19 17:47 Dose: 0 mls/hr Documented by: Admin: 09/15/19 16:04 Dose: 100 mls/hr Documented by: SHAMAR Sodium Chloride (Normal Saline 0.9%) 1,000 mls @ 75 mls/hr IV CONT [facility] Last Admin: 09/17/19 00:05 Dose: 75 mls/hr Documented by: Infusion: 09/17/19 00:02 Dose: 75 mls/hr Documented by: Admin: 09/16/19 10:42 Dose: 75 mls/hr Documented by: CASSIE Ketorolac Tromethamine (Toradol) 15 mg IV NOW ONE Stop: 09/14/19 17:35 Last Admin: 09/14/19 18:20 Dose: 15 mg Documented by: MELISSA Naloxone HCl (Narcan) 0.2 mg IV Q2MIN PRN PRN Reason: Opiate Reversal Ondansetron HCl (Zofran) 4 mg IV Q8HR PRN PRN Reason: Nausea And Vomiting Last Admin: 09/17/19 08:18 Dose: 4 mg Documented by: Admin: 09/16/19 08:54 Dose: 4 mg Documented by: Admin: 09/14/19 23:50 Dose: 4 mg Documented by: SHABANA Ondansetron HCl (Zofran Odt) 4 mg SL Q8HR PRN PRN Reason: Nausea Last Admin: 09/16/19 03:00 Dose: 4 mg Documented by: Admin: 09/15/19 17:47 Dose: 4 mg Documented by: VIVIAN Pantoprazole Sodium (Protonix) 40 mg PO 0700 [facility] Last Admin: 09/17/19 06:07 Dose: 40 mg Documented by: Admin: 09/16/19 06:44 Dose: 40 mg Documented by: Admin: 09/15/19 06:01 Dose: 40 mg Documented by: KGALLAG Potassium Chloride (Klor-Con M20) 40 meq PO NOW ONE Stop: 09/17/19 07:41 Last Admin: 09/17/19 09:22 Dose: Not Given Documented by: RO Potassium Chloride (Klor-Con M20) 40 meq PO NOW ONE Stop: 09/17/19 09:19 Last Admin: 09/17/19 09:23 Dose: 40 meq Documented by: RO Prednisone (Deltasone) 10 mg PO DAILY [facility] Last Admin: 09/17/19 09:21 Dose: 10 mg Documented by: Admin: 09/16/19 10:42 Dose: 10 mg Documented by: Admin: 09/15/19 07:59 Dose: 10 mg Documented by: LEOBARDO Sodium Chloride (Normal Saline 0.9% Flush) 10 ml IV PRN PRN PRN Reason: Flush Sodium Chloride (Normal Saline 0.9% Flush) 10 ml IV BID [facility] Last Admin: 09/17/19 09:23 Dose: 10 ml Documented by: Admin: 09/16/19 21:49 Dose: Not Given Documented by: Admin: 09/16/19 08:59 Dose: 10 ml Documented by: LEOBARDO Vital Signs Vital signs: Vital Signs - 8 hr 09/14/19 16:50 09/14/19 17:26 09/14/19 18:00 Temperature 102 F H 103 F H Pulse Rate 123 H 124 H Respiratory Rate 20 17 Blood Pressure 139/78 Blood Pressure [Left Arm] 133/55 L Pulse Oximetry 99 94 09/14/19 18:15 09/14/19 18:20 09/14/19 18:30 Temperature 102 F H Pulse Rate 121 H 126 H Respiratory Rate 18 Blood Pressure Blood Pressure [Left Arm] 114/54 L Pulse Oximetry 97 95 09/14/19 19:11 09/14/19 19:17 Temperature 101.8 F H 101.8 F H Pulse Rate 113 H Respiratory Rate 20 Blood Pressure Blood Pressure [Left Arm] 119/50 L Pulse Oximetry 95 <Britta Ingram MD - Last Filed: 09/20/19 07:22> Orders Ordered: Discontinued Medications Acetaminophen (Tylenol) 975 mg PO NOW ONE Stop: 09/14/19 17:15 Last Admin: 09/14/19 17:26 Dose: 975 mg Documented by: KBMATTHEW Acetaminophen (Tylenol) 650 mg PO Q6HR PRN PRN Reason: Fever/Mild Pain (1-3) Hydrocodone Bitart/Acetaminophen (Dora 5/325) 1 tab PO Q6HR PRN PRN Reason: Pain, Moderate (4-6) Last Admin: 09/15/19 08:00 Dose: 1 tab Documented by: Admin: 09/15/19 03:20 Dose: 1 tab Documented by: MARTHA Hydrocodone Bitart/Acetaminophen (Dora 5/325) 2 tab PO Q6HR PRN PRN Reason: Pain, Severe (7-10) Hydrocodone Bitart/Acetaminophen (Dora 5/325) 1 tab PO Q4HR PRN PRN Reason: Pain, Moderate (4-6) Last Admin: 09/17/19 09:21 Dose: 1 tab Documented by: Admin: 09/17/19 02:51 Dose: 1 tab Documented by: Admin: 09/16/19 22:55 Dose: 1 tab Documented by: Admin: 09/16/19 19:22 Dose: 1 tab Documented by: Admin: 09/16/19 14:52 Dose: 1 tab Documented by: Admin: 09/16/19 10:43 Dose: 1 tab Documented by: Admin: 09/16/19 04:22 Dose: 1 tab Documented by: Admin: 09/16/19 00:03 Dose: 1 tab Documented by: Admin: 09/15/19 20:12 Dose: 1 tab Documented by: Admin: 09/15/19 16:04 Dose: 1 tab Documented by: Admin: 09/15/19 11:57 Dose: 1 tab Documented by: LEOBARDO Al Hydrox/Mg Hydrox/Simethicone (Maalox Plus) 30 ml PO Q6HR PRN PRN Reason: Dyspepsia Albuterol (Ventolin) 2.5 mg INH [id number] PRN PRN Reason: Shortness Of Breath Albuterol/Ipratropium (Duoneb) 3 ml INH NOW ONE Stop: 09/14/19 17:35 Last Admin: 09/14/19 18:09 Dose: 3 ml Documented by: BRANT Bisacodyl (Dulcolax) 10 mg NH DAILY PRN PRN Reason: Constipation Calcium Carbonate (Tums) 1,000 mg PO Q4HR PRN PRN Reason: Dyspepsia Docusate Sodium (Colace) 100 mg PO BID PRN PRN Reason: Constipation Guaifenesin (Mucinex) 600 mg PO Q12HR PRN PRN Reason: Cough Last Admin: 09/15/19 03:20 Dose: 600 mg Documented by: MRATHA Heparin Sodium (Porcine) (Heparin) 5,000 unit SUBCUT BID ALDO Last Admin: 09/17/19 08:18 Dose: 5,000 unit Documented by: Admin: 09/16/19 22:16 Dose: 5,000 unit Documented by: Admin: 09/16/19 10:42 Dose: 5,000 unit Documented by: Admin: 09/15/19 20:13 Dose: 5,000 unit Documented by: Admin: 09/15/19 07:59 Dose: 5,000 unit Documented by: CPETRIC Sodium Chloride (Normal Saline 0.9%) 1,000 mls @ 1,000 mls/hr IV BOLUS ONE Stop: 09/14/19 18:10 Last Infusion: 09/14/19 19:17 Dose: 0 mls/hr Documented by: Admin: 09/14/19 17:26 Dose: 1,000 mls/hr Documented by: MELISSA Ceftriaxone Sodium/Dextrose (Rocephin) 1 gm in 50 mls @ 100 mls/hr IV NOW ONE Stop: 09/14/19 18:38 Last Infusion: 09/14/19 18:59 Dose: 0 mls/hr Documented by: Admin: 09/14/19 18:19 Dose: 100 mls/hr Documented by: MELISSA Azithromycin 500 mg/ Dextrose 250 mls @ 250 mls/hr IV NOW ONE Stop: 09/14/19 19:31 Last Infusion: 09/14/19 20:34 Dose: 250 mls/hr Documented by: Admin: 09/14/19 19:49 Dose: 250 mls/hr Documented by: MELISSA Sodium Chloride (Normal Saline 0.9%) 1,000 mls @ 125 mls/hr IV CONT ALDO Stop: 09/14/19 22:30 Last Infusion: 09/14/19 20:18 Dose: 125 mls/hr Documented by: Admin: 09/14/19 19:48 Dose: 125 mls/hr Documented by: MELISSA Sodium Chloride (Normal Saline 0.9%) 1,000 mls @ 50 mls/hr IV CONT ALDO Last Admin: 09/15/19 00:30 Dose: Not Given Documented by: KGALLAG Azithromycin 500 mg/ Dextrose 250 mls @ 250 mls/hr IV Q24H [facility] Stop: 09/16/19 19:01 Ceftriaxone Sodium/Dextrose (Rocephin) 2 gm in 50 mls @ 100 mls/hr IV Q24H ALDO Levofloxacin (Levaquin) 750 mg in 150 mls @ 100 mls/hr IV Q48H [facility] Last Infusion: 09/15/19 17:47 Dose: 0 mls/hr Documented by: Admin: 09/15/19 16:04 Dose: 100 mls/hr Documented by: SHAMAR Sodium Chloride (Normal Saline 0.9%) 1,000 mls @ 75 mls/hr IV CONT ALDO Last Admin: 09/17/19 00:05 Dose: 75 mls/hr Documented by: Infusion: 09/17/19 00:02 Dose: 75 mls/hr Documented by: Admin: 09/16/19 10:42 Dose: 75 mls/hr Documented by: CASSIE Ketorolac Tromethamine (Toradol) 15 mg IV NOW ONE Stop: 09/14/19 17:35 Last Admin: 09/14/19 18:20 Dose: 15 mg Documented by: MELISSA Naloxone HCl (Narcan) 0.2 mg IV Q2MIN PRN PRN Reason: Opiate Reversal Ondansetron HCl (Zofran) 4 mg IV Q8HR PRN PRN Reason: Nausea And Vomiting Last Admin: 09/17/19 08:18 Dose: 4 mg Documented by: Admin: 09/16/19 08:54 Dose: 4 mg Documented by: Admin: 09/14/19 23:50 Dose: 4 mg Documented by: SHABANA Ondansetron HCl (Zofran Odt) 4 mg SL Q8HR PRN PRN Reason: Nausea Last Admin: 09/16/19 03:00 Dose: 4 mg Documented by: Admin: 09/15/19 17:47 Dose: 4 mg Documented by: VIVIAN Pantoprazole Sodium (Protonix) 40 mg PO 0700 [facility] Last Admin: 09/17/19 06:07 Dose: 40 mg Documented by: Admin: 09/16/19 06:44 Dose: 40 mg Documented by: Admin: 09/15/19 06:01 Dose: 40 mg Documented by: KGMIHAELAAG Potassium Chloride (Klor-Con M20) 40 meq PO NOW ONE Stop: 09/17/19 07:41 Last Admin: 09/17/19 09:22 Dose: Not Given Documented by: RO Potassium Chloride (Klor-Con M20) 40 meq PO NOW ONE Stop: 09/17/19 09:19 Last Admin: 09/17/19 09:23 Dose: 40 meq Documented by: RO Prednisone (Deltasone) 10 mg PO DAILY [facility] Last Admin: 09/17/19 09:21 Dose: 10 mg Documented by: Admin: 09/16/19 10:42 Dose: 10 mg Documented by: Admin: 09/15/19 07:59 Dose: 10 mg Documented by: LEOBARDO Sodium Chloride (Normal Saline 0.9% Flush) 10 ml IV PRN PRN PRN Reason: Flush Sodium Chloride (Normal Saline 0.9% Flush) 10 ml IV BID [facility] Last Admin: 09/17/19 09:23 Dose: 10 ml Documented by: Admin: 09/16/19 21:49 Dose: Not Given Documented by: Admin: 09/16/19 08:59 Dose: 10 ml Documented by: LEOBARDO Vital Signs Vital signs: Vital Signs - 8 hr 09/14/19 16:50 09/14/19 17:26 09/14/19 18:00 Temperature 102 F H 103 F H Pulse Rate 123 H 124 H Respiratory Rate 20 17 Blood Pressure 139/78 Blood Pressure [Left Arm] 133/55 L Pulse Oximetry 99 94 09/14/19 18:15 09/14/19 18:20 09/14/19 18:30 Temperature 102 F H Pulse Rate 121 H 126 H Respiratory Rate 18 Blood Pressure Blood Pressure [Left Arm] 114/54 L Pulse Oximetry 97 95 09/14/19 19:11 09/14/19 19:17 Temperature 101.8 F H 101.8 F H Pulse Rate 113 H Respiratory Rate 20 Blood Pressure Blood Pressure [Left Arm] 119/50 L Pulse Oximetry 95 MDM - Fever <Johnny NIRMAL Rodriguez - Last Filed: 09/14/19 21:06> Differential Diagnosis Differential diagnosis: Likely community acquired pneumonia and influenza Medical Records Attestation: I reviewed the patient's medical records. Lab Data Attestation: I reviewed the patient's lab results. Result diagrams: 09/17/19 06:54 09/17/19 06:54 Labs: Lab Results 09/14/19 09/14/19 09/14/19 Range/Units 16:45 16:45 17:10 WBC 20.0 H (4.5-11.0) X10^3/uL RBC 3.68 L (4.0-5.2) X10^6/uL Hgb 11.9 L (12.0-16.0) g/dL Hct 35.3 L (36-46) % MCV 95.9 (80-100) fL MCH 32.3 (26-34) PG MCHC 33.7 (30-36) % RDW 15.6 H (11.6-14.8) % Plt Count 320 (150-400) X10^3/uL Neut % (Auto) 87.0 H (50-75) % Lymph % (Auto) 6.8 L (25-40) % [place] % (Auto) 5.7 (3-14) % Eos % (Auto) 0.1 L (2-4) % Baso % (Auto) 0.4 (0-2) % Neut # (Auto) 36804 H (6024-2325) /uL Lymph # (Auto) 1400 (9099-7372) /uL [place] # (Auto) 1100 H (0-900) /uL Eos # (Auto) 0 (0-450) /uL Baso # (Auto) 100 (0-100) /uL PT (10.1-12.7) SECONDS INR (0.9-1.3) APTT (26.4-36.2) SECONDS Sodium (137-145) mmol/L Potassium (3.4-5.1) mmol/L Chloride (98-107) mmol/L Carbon Dioxide (22-32) mmol/L BUN (7-17) mg/dL Creatinine (0.52-1.04) mg/dL Estimated GFR (>60) mL/min BUN/Creatinine Ratio (6-22) Glucose (80-110) mg/dL Lactate (0.7-2.1) mmol/L Calcium (8.4-10.2) mg/dL Magnesium (1.6-2.3) mg/dL Total Bilirubin (0.2-1.3) mg/dL AST (14-36) IU/L ALT (<35) IU/L Alkaline Phosphatase (38-126) U/L Total Protein (6.3-8.2) g/dL Albumin (3.5-5.0) g/dL Globulin (1.7-4.1) g/dL Albumin/Globulin Ratio (1.0-2.8) Lipase (23-300) U/L Procalcitonin (<0.5) ng/mL Urine Color Yellow Urine Appearance Clear Urine pH 6.0 (4.5-8.0) Ur Specific [place] 1.010 (1.000-1.035) Urine Protein Negative (Negative) Urine Glucose (UA) Negative (Negative) g/dL Urine Ketones Trace H (NEGATIVE) Urine Occult Blood 3+ H (Negative) Urine Nitrate Negative (Negative) Urine Bilirubin Negative (NEGATIVE) Urine Urobilinogen 0.2 (0.2) E.U./dL Ur Leukocyte Esterase Negative (NEGATIVE) Urine RBC 1-5/hpf (0-5/HPF) Urine WBC None seen (0-5/HPF) Ur Squamous Epith Cells None seen (0-5/HPF) Urine Bacteria None seen (None) Ur Culture Indicated? Cult not indicated Chlamy pneumoniae PCR (Not Detect) Adenovirus (PCR) (Not Detect) B.parapertussis DNA PCR (Not Detect) Coronavirus OC43 (PCR) (Not Detect) Coronavirus HKU1 (PCR) (Not Detect) Coronavirus 229E (PCR) (Not Detect) Coronavirus NL63 (PCR) (Not Detect) Human Metapneumovir PCR (Not Detect) Influenza Type A (PCR) (Not Detect) Influenza Type B (PCR) (Not Detect) M. pneumoniae (PCR) (Not Detect) Parainfluenza 1 (PCR) (Not Detect) Parainfluenza 2 (PCR) (Not Detect) Parainfluenza 3 (PCR) (Not Detect) Parainfluenza 4 (PCR) (Not Detect) RSV (PCR) (Not Detect) Entero/Rhino (PCR) (Not Detect) S. pneumoniae Ag Intrp Not detected 09/14/19 09/14/19 09/14/19 Range/Units 17:10 17:10 17:10 WBC (4.5-11.0) X10^3/uL RBC (4.0-5.2) X10^6/uL Hgb (12.0-16.0) g/dL Hct (36-46) % MCV (80-100) fL MCH (26-34) PG MCHC (30-36) % RDW (11.6-14.8) % Plt Count (150-400) X10^3/uL Neut % (Auto) (50-75) % Lymph % (Auto) (25-40) % [place] % (Auto) (3-14) % Eos % (Auto) (2-4) % Baso % (Auto) (0-2) % Neut # (Auto) (0436-3045) /uL Lymph # (Auto) (2609-0391) /uL [place] # (Auto) (0-900) /uL Eos # (Auto) (0-450) /uL Baso # (Auto) (0-100) /uL PT 11.7 (10.1-12.7) SECONDS INR 1.0 (0.9-1.3) APTT 31 (26.4-36.2) SECONDS Sodium 128 L (137-145) mmol/L Potassium 3.6 (3.4-5.1) mmol/L Chloride 90 L (98-107) mmol/L Carbon Dioxide 28 (22-32) mmol/L BUN 8 (7-17) mg/dL Creatinine 0.50 L (0.52-1.04) mg/dL Estimated GFR > 60.0 (>60) mL/min BUN/Creatinine Ratio 16.0 (6-22) Glucose 109 (80-110) mg/dL Lactate (0.7-2.1) mmol/L Calcium 9.0 (8.4-10.2) mg/dL Magnesium (1.6-2.3) mg/dL Total Bilirubin 0.7 (0.2-1.3) mg/dL AST 22 (14-36) IU/L ALT 11 (<35) IU/L Alkaline Phosphatase 56 (38-126) U/L Total Protein 6.4 (6.3-8.2) g/dL Albumin 3.9 (3.5-5.0) g/dL Globulin 2.5 (1.7-4.1) g/dL Albumin/Globulin Ratio 1.6 (1.0-2.8) Lipase 21 L (23-300) U/L Procalcitonin 0.06 (<0.5) ng/mL Urine Color Urine Appearance Urine pH (4.5-8.0) Ur Specific [place] (1.000-1.035) Urine Protein (Negative) Urine Glucose (UA) (Negative) g/dL Urine Ketones (NEGATIVE) Urine Occult Blood (Negative) Urine Nitrate (Negative) Urine Bilirubin (NEGATIVE) Urine Urobilinogen (0.2) E.U./dL Ur Leukocyte Esterase (NEGATIVE) Urine RBC (0-5/HPF) Urine WBC (0-5/HPF) Ur Squamous Epith Cells (0-5/HPF) Urine Bacteria (None) Ur Culture Indicated? Chlamy pneumoniae PCR (Not Detect) Adenovirus (PCR) (Not Detect) B.parapertussis DNA PCR (Not Detect) Coronavirus OC43 (PCR) (Not Detect) Coronavirus HKU1 (PCR) (Not Detect) Coronavirus 229E (PCR) (Not Detect) Coronavirus NL63 (PCR) (Not Detect) Human Metapneumovir PCR (Not Detect) Influenza Type A (PCR) (Not Detect) Influenza Type B (PCR) (Not Detect) M. pneumoniae (PCR) (Not Detect) Parainfluenza 1 (PCR) (Not Detect) Parainfluenza 2 (PCR) (Not Detect) Parainfluenza 3 (PCR) (Not Detect) Parainfluenza 4 (PCR) (Not Detect) RSV (PCR) (Not Detect) Entero/Rhino (PCR) (Not Detect) S. pneumoniae Ag Intrp 09/14/19 09/14/19 09/14/19 Range/Units 17:10 17:10 17:10 WBC (4.5-11.0) X10^3/uL RBC (4.0-5.2) X10^6/uL Hgb (12.0-16.0) g/dL Hct (36-46) % MCV (80-100) fL MCH (26-34) PG MCHC (30-36) % RDW (11.6-14.8) % Plt Count (150-400) X10^3/uL Neut % (Auto) (50-75) % Lymph % (Auto) (25-40) % [place] % (Auto) (3-14) % Eos % (Auto) (2-4) % Baso % (Auto) (0-2) % Neut # (Auto) (9820-9555) /uL Lymph # (Auto) (7744-1010) /uL [place] # (Auto) (0-900) /uL Eos # (Auto) (0-450) /uL Baso # (Auto) (0-100) /uL PT (10.1-12.7) SECONDS INR (0.9-1.3) APTT (26.4-36.2) SECONDS Sodium (137-145) mmol/L Potassium (3.4-5.1) mmol/L Chloride (98-107) mmol/L Carbon Dioxide (22-32) mmol/L BUN (7-17) mg/dL Creatinine (0.52-1.04) mg/dL Estimated GFR (>60) mL/min BUN/Creatinine Ratio (6-22) Glucose (80-110) mg/dL Lactate 1.0 (0.7-2.1) mmol/L Calcium (8.4-10.2) mg/dL Magnesium 1.7 (1.6-2.3) mg/dL Total Bilirubin (0.2-1.3) mg/dL AST (14-36) IU/L ALT (<35) IU/L Alkaline Phosphatase (38-126) U/L Total Protein (6.3-8.2) g/dL Albumin (3.5-5.0) g/dL Globulin (1.7-4.1) g/dL Albumin/Globulin Ratio (1.0-2.8) Lipase (23-300) U/L Procalcitonin (<0.5) ng/mL Urine Color Urine Appearance Urine pH (4.5-8.0) Ur Specific [place] (1.000-1.035) Urine Protein (Negative) Urine Glucose (UA) (Negative) g/dL Urine Ketones (NEGATIVE) Urine Occult Blood (Negative) Urine Nitrate (Negative) Urine Bilirubin (NEGATIVE) Urine Urobilinogen (0.2) E.U./dL Ur Leukocyte Esterase (NEGATIVE) Urine RBC (0-5/HPF) Urine WBC (0-5/HPF) Ur Squamous Epith Cells (0-5/HPF) Urine Bacteria (None) Ur Culture Indicated? Chlamy pneumoniae PCR Not detected (Not Detect) Adenovirus (PCR) Not detected (Not Detect) B.parapertussis DNA PCR Not detected (Not Detect) Coronavirus OC43 (PCR) Not detected (Not Detect) Coronavirus HKU1 (PCR) Not detected (Not Detect) Coronavirus 229E (PCR) Not detected (Not Detect) Coronavirus NL63 (PCR) Not detected (Not Detect) Human Metapneumovir PCR Not detected (Not Detect) Influenza Type A (PCR) Not detected (Not Detect) Influenza Type B (PCR) Not detected (Not Detect) M. pneumoniae (PCR) Not detected (Not Detect) Parainfluenza 1 (PCR) Not detected (Not Detect) Parainfluenza 2 (PCR) Not detected (Not Detect) Parainfluenza 3 (PCR) Not detected (Not Detect) Parainfluenza 4 (PCR) Not detected (Not Detect) RSV (PCR) Not detected (Not Detect) Entero/Rhino (PCR) Not detected (Not Detect) S. pneumoniae Ag Intrp Imaging Data Chest x-ray: Radiologist's Impression: [address] [address] XRay Report Signed Patient: Mariely Man EMR#: [id number] : 1940Acct:[id number] Age/Sex: 78 / FDate of Service: 09/14/19 Loc: ED Accession Number: [id number] Procedure: XR chest 1V Ordering Provider: Johnny Rodriguez PROCEDURE: XR CHEST 1V INDICATIONS: suspected sepsis TECHNIQUE: One view of the chest was acquired. COMPARISON: [facility], CT, PE STUDY (CTA CHEST), 10/29/2013, 15:25. [facility], CR, CHEST 1 VIEW, 06/27/2014, 1:43. [facility], CR, CHEST 1 VIEW, 06/19/2016, 9:52. [facility], CR, XR CHEST 2V, 09/06/2019, 11:21. FINDINGS: Surgical changes and devices: None. Lungs and pleura: There is mild focal consolidation seen within both medial lungs inferiorly, right worse than left. No pneumothorax or pleural effusions are seen. Mediastinum: The cardiac contours are within normal limits. The aorta demonstrates calcification and tortuosity. Bones and chest wall: Fractures are seen involving left posterior and lateral ribs. Age-appropriate bony degenerative changes are seen. Mild dextroconvex scoliotic curvature is seen. Overlying soft tissues appear unremarkable. IMPRESSION: Consolidations can be seen involving the medial aspects of the lungs inferiorly, right worse than left and given the history, pneumonia is suspected. Remote appearing right-sided rib fractures are seen. Dictated by: Timothy Dimas M.D. on 09/14/2019 at 16:56 Approved by: Timothy Dimas M.D. on 09/14/2019 at 16:58 ECG Data Attestation: I personally reviewed and interpreted this ECG as follows: Prior ECG tracings: available for review Interpretation: Sinus tachycardia rate at 121 L asix. P are interval 177, normal QRS, QTc 367 Right ventricular conduction delay RSR in V1 and V3. No obvious ST elevation or depression noted. Previous EKG shows normal sinus rhythm MDM Narrative Medical decision making narrative: This is a 78-year-old female who presents to ED with nonproductive cough for 7 days with fever started today. Patient has been using guaifenesin AC at home which has been prescribed by her PCP, Dr. Ennis w/o much improvements. Patient reports feeling tired, +chills, and nausea and vomiting. Lung sounds were mild crackles to auscultate in right lower lobes with decreased throughout in all lobes. Patient's heart rate in 120 s when she arrived to ED. respiratory panel was negative. Significantly increased WBC count of 20 with elevated neutrophils. Normal lactate and procalcitonin today. Also noted decreased in sodium and chloride as 128 and 90. Patient was provided with 1 L of normal saline as bolus, DuoNeb has been provided for breathing. CXR shows in medial aspect of lungs inferiorly worsen right-sided. Patient was medicated with Rocephin 1 g after blood cultures. Hospitalist, LINDA Boyd was contacted and he kindly accepted the patient's care for admission. Added azithromycin 500 mg a IV as requested per hospitalist. Pending admission has been informed patient and patient agrees with the treatment plan. <Britta Ingram MD - Last Filed: 09/20/19 07:22> Lab Data Labs: Lab Results 09/14/19 09/14/19 09/14/19 Range/Units 16:45 16:45 17:10 WBC 20.0 H (4.5-11.0) X10^3/uL RBC 3.68 L (4.0-5.2) X10^6/uL Hgb 11.9 L (12.0-16.0) g/dL Hct 35.3 L (36-46) % MCV 95.9 (80-100) fL MCH 32.3 (26-34) PG MCHC 33.7 (30-36) % RDW 15.6 H (11.6-14.8) % Plt Count 320 (150-400) X10^3/uL Neut % (Auto) 87.0 H (50-75) % Lymph % (Auto) 6.8 L (25-40) % [place] % (Auto) 5.7 (3-14) % Eos % (Auto) 0.1 L (2-4) % Baso % (Auto) 0.4 (0-2) % Neut # (Auto) 33765 H (1221-3707) /uL Lymph # (Auto) 1400 (5197-9109) /uL [place] # (Auto) 1100 H (0-900) /uL Eos # (Auto) 0 (0-450) /uL Baso # (Auto) 100 (0-100) /uL PT (10.1-12.7) SECONDS INR (0.9-1.3) APTT (26.4-36.2) SECONDS Sodium (137-145) mmol/L Potassium (3.4-5.1) mmol/L Chloride (98-107) mmol/L Carbon Dioxide (22-32) mmol/L BUN (7-17) mg/dL Creatinine (0.52-1.04) mg/dL Estimated GFR (>60) mL/min BUN/Creatinine Ratio (6-22) Glucose (80-110) mg/dL Lactate (0.7-2.1) mmol/L Calcium (8.4-10.2) mg/dL Magnesium (1.6-2.3) mg/dL Total Bilirubin (0.2-1.3) mg/dL AST (14-36) IU/L ALT (<35) IU/L Alkaline Phosphatase (38-126) U/L Total Protein (6.3-8.2) g/dL Albumin (3.5-5.0) g/dL Globulin (1.7-4.1) g/dL Albumin/Globulin Ratio (1.0-2.8) Lipase (23-300) U/L Procalcitonin (<0.5) ng/mL Urine Color Yellow Urine Appearance Clear Urine pH 6.0 (4.5-8.0) Ur Specific [place] 1.010 (1.000-1.035) Urine Protein Negative (Negative) Urine Glucose (UA) Negative (Negative) g/dL Urine Ketones Trace H (NEGATIVE) Urine Occult Blood 3+ H (Negative) Urine Nitrate Negative (Negative) Urine Bilirubin Negative (NEGATIVE) Urine Urobilinogen 0.2 (0.2) E.U./dL Ur Leukocyte Esterase Negative (NEGATIVE) Urine RBC 1-5/hpf (0-5/HPF) Urine WBC None seen (0-5/HPF) Ur Squamous Epith Cells None seen (0-5/HPF) Urine Bacteria None seen (None) Ur Culture Indicated? Cult not indicated Chlamy pneumoniae PCR (Not Detect) Adenovirus (PCR) (Not Detect) B.parapertussis DNA PCR (Not Detect) Coronavirus OC43 (PCR) (Not Detect) Coronavirus HKU1 (PCR) (Not Detect) Coronavirus 229E (PCR) (Not Detect) Coronavirus NL63 (PCR) (Not Detect) Human Metapneumovir PCR (Not Detect) Influenza Type A (PCR) (Not Detect) Influenza Type B (PCR) (Not Detect) M. pneumoniae (PCR) (Not Detect) Parainfluenza 1 (PCR) (Not Detect) Parainfluenza 2 (PCR) (Not Detect) Parainfluenza 3 (PCR) (Not Detect) Parainfluenza 4 (PCR) (Not Detect) RSV (PCR) (Not Detect) Entero/Rhino (PCR) (Not Detect) S. pneumoniae Ag Intrp Not detected 09/14/19 09/14/19 09/14/19 Range/Units 17:10 17:10 17:10 WBC (4.5-11.0) X10^3/uL RBC (4.0-5.2) X10^6/uL Hgb (12.0-16.0) g/dL Hct (36-46) % MCV (80-100) fL MCH (26-34) PG MCHC (30-36) % RDW (11.6-14.8) % Plt Count (150-400) X10^3/uL Neut % (Auto) (50-75) % Lymph % (Auto) (25-40) % [place] % (Auto) (3-14) % Eos % (Auto) (2-4) % Baso % (Auto) (0-2) % Neut # (Auto) (3067-2125) /uL Lymph # (Auto) (7182-7095) /uL [place] # (Auto) (0-900) /uL Eos # (Auto) (0-450) /uL Baso # (Auto) (0-100) /uL PT 11.7 (10.1-12.7) SECONDS INR 1.0 (0.9-1.3) APTT 31 (26.4-36.2) SECONDS Sodium 128 L (137-145) mmol/L Potassium 3.6 (3.4-5.1) mmol/L Chloride 90 L (98-107) mmol/L Carbon Dioxide 28 (22-32) mmol/L BUN 8 (7-17) mg/dL Creatinine 0.50 L (0.52-1.04) mg/dL Estimated GFR > 60.0 (>60) mL/min BUN/Creatinine Ratio 16.0 (6-22) Glucose 109 (80-110) mg/dL Lactate (0.7-2.1) mmol/L Calcium 9.0 (8.4-10.2) mg/dL Magnesium (1.6-2.3) mg/dL Total Bilirubin 0.7 (0.2-1.3) mg/dL AST 22 (14-36) IU/L ALT 11 (<35) IU/L Alkaline Phosphatase 56 (38-126) U/L Total Protein 6.4 (6.3-8.2) g/dL Albumin 3.9 (3.5-5.0) g/dL Globulin 2.5 (1.7-4.1) g/dL Albumin/Globulin Ratio 1.6 (1.0-2.8) Lipase 21 L (23-300) U/L Procalcitonin 0.06 (<0.5) ng/mL Urine Color Urine Appearance Urine pH (4.5-8.0) Ur Specific [place] (1.000-1.035) Urine Protein (Negative) Urine Glucose (UA) (Negative) g/dL Urine Ketones (NEGATIVE) Urine Occult Blood (Negative) Urine Nitrate (Negative) Urine Bilirubin (NEGATIVE) Urine Urobilinogen (0.2) E.U./dL Ur Leukocyte Esterase (NEGATIVE) Urine RBC (0-5/HPF) Urine WBC (0-5/HPF) Ur Squamous Epith Cells (0-5/HPF) Urine Bacteria (None) Ur Culture Indicated? Chlamy pneumoniae PCR (Not Detect) Adenovirus (PCR) (Not Detect) B.parapertussis DNA PCR (Not Detect) Coronavirus OC43 (PCR) (Not Detect) Coronavirus HKU1 (PCR) (Not Detect) Coronavirus 229E (PCR) (Not Detect) Coronavirus NL63 (PCR) (Not Detect) Human Metapneumovir PCR (Not Detect) Influenza Type A (PCR) (Not Detect) Influenza Type B (PCR) (Not Detect) M. pneumoniae (PCR) (Not Detect) Parainfluenza 1 (PCR) (Not Detect) Parainfluenza 2 (PCR) (Not Detect) Parainfluenza 3 (PCR) (Not Detect) Parainfluenza 4 (PCR) (Not Detect) RSV (PCR) (Not Detect) Entero/Rhino (PCR) (Not Detect) S. pneumoniae Ag Intrp 09/14/19 09/14/19 09/14/19 Range/Units 17:10 17:10 17:10 WBC (4.5-11.0) X10^3/uL RBC (4.0-5.2) X10^6/uL Hgb (12.0-16.0) g/dL Hct (36-46) % MCV (80-100) fL MCH (26-34) PG MCHC (30-36) % RDW (11.6-14.8) % Plt Count (150-400) X10^3/uL Neut % (Auto) (50-75) % Lymph % (Auto) (25-40) % [place] % (Auto) (3-14) % Eos % (Auto) (2-4) % Baso % (Auto) (0-2) % Neut # (Auto) (6525-9978) /uL Lymph # (Auto) (4313-6106) /uL [place] # (Auto) (0-900) /uL Eos # (Auto) (0-450) /uL Baso # (Auto) (0-100) /uL PT (10.1-12.7) SECONDS INR (0.9-1.3) APTT (26.4-36.2) SECONDS Sodium (137-145) mmol/L Potassium (3.4-5.1) mmol/L Chloride (98-107) mmol/L Carbon Dioxide (22-32) mmol/L BUN (7-17) mg/dL Creatinine (0.52-1.04) mg/dL Estimated GFR (>60) mL/min BUN/Creatinine Ratio (6-22) Glucose (80-110) mg/dL Lactate 1.0 (0.7-2.1) mmol/L Calcium (8.4-10.2) mg/dL Magnesium 1.7 (1.6-2.3) mg/dL Total Bilirubin (0.2-1.3) mg/dL AST (14-36) IU/L ALT (<35) IU/L Alkaline Phosphatase (38-126) U/L Total Protein (6.3-8.2) g/dL Albumin (3.5-5.0) g/dL Globulin (1.7-4.1) g/dL Albumin/Globulin Ratio (1.0-2.8) Lipase (23-300) U/L Procalcitonin (<0.5) ng/mL Urine Color Urine Appearance Urine pH (4.5-8.0) Ur Specific [place] (1.000-1.035) Urine Protein (Negative) Urine Glucose (UA) (Negative) g/dL Urine Ketones (NEGATIVE) Urine Occult Blood (Negative) Urine Nitrate (Negative) Urine Bilirubin (NEGATIVE) Urine Urobilinogen (0.2) E.U./dL Ur Leukocyte Esterase (NEGATIVE) Urine RBC (0-5/HPF) Urine WBC (0-5/HPF) Ur Squamous Epith Cells (0-5/HPF) Urine Bacteria (None) Ur Culture Indicated? Chlamy pneumoniae PCR Not detected (Not Detect) Adenovirus (PCR) Not detected (Not Detect) B.parapertussis DNA PCR Not detected (Not Detect) Coronavirus OC43 (PCR) Not detected (Not Detect) Coronavirus HKU1 (PCR) Not detected (Not Detect) Coronavirus 229E (PCR) Not detected (Not Detect) Coronavirus NL63 (PCR) Not detected (Not Detect) Human Metapneumovir PCR Not detected (Not Detect) Influenza Type A (PCR) Not detected (Not Detect) Influenza Type B (PCR) Not detected (Not Detect) M. pneumoniae (PCR) Not detected (Not Detect) Parainfluenza 1 (PCR) Not detected (Not Detect) Parainfluenza 2 (PCR) Not detected (Not Detect) Parainfluenza 3 (PCR) Not detected (Not Detect) Parainfluenza 4 (PCR) Not detected (Not Detect) RSV (PCR) Not detected (Not Detect) Entero/Rhino (PCR) Not detected (Not Detect) S. pneumoniae Ag Intrp Discharge Plan Departure Patient Disposition: Admitted As Inpatient Clinical Impression: Discharge Date/Time: 09/14/19 20:36 Instructions: DI for Pneumonia -- Adult Referrals: Alen Ennis MD [Primary Care Provider] - 09/21/19 2:20 pm (appt:09/21 @2:20 check in for appointment with dr ennis ) Admit Date/Time: 09/14/19 19:34 Admit Provider: Anil Boyd
[2019-09-14] MEDS: ALBUTEROL/IPRATROPIUM 3 ML AMPUL INH (18:09)
[2019-09-14 18:14] LABS: Procalcitonin 0.06 ng/mL (<0.5)
[2019-09-14] MEDS: CEFTRIAXONE 1 GM/50 ML FROZ.PIGGY IV (18:19)
[2019-09-14] MEDS: KETOROLAC 60 MG/2 ML VIAL 15 MG IV (18:20)
[2019-09-14 19:45] LABS: Adenovirus Not Detected (Not Detect); Bordetella pertussis Not Detected (Not Detect); Chlamydophila pneumoniae Not Detected (Not Detect); Coronavirus 229E Not Detected (Not Detect); Coronavirus HKU1 Not Detected (Not Detect); Coronavirus NL 63 Not Detected (Not Detect); Coronavirus OC43 Not Detected (Not Detect); Human Metapneumovirus Not Detected (Not Detect); Human Rhinovirus/Enterovirus Not Detected (Not Detect); Influenza A Not Detected (Not Detect); Influenza B Not Detected (Not Detect); Mycoplasma pneumoniae Not Detected (Not Detect); Parainfluenza Virus 1 Not Detected (Not Detect); Parainfluenza Virus 2 Not Detected (Not Detect); Parainfluenza Virus 3 Not Detected (Not Detect); Parainfluenza Virus 4 Not Detected (Not Detect); Respiratory Syncytial Virus Not Detected (Not Detect)
[2019-09-14] MEDS: SODIUM CHLORIDE 0.9% 1,000 ML 125 ML IV (19:48)
[2019-09-14] MEDS: AZITHROMYCIN 500 MG in DEXTROSE 5% IN WATER 250 ML IV (19:49)
[2019-09-14 22:49] LABS: Magnesium 1.7 mg/dL (1.6-2.3)
[2019-09-14] MEDS: ONDANSETRON 4 MG/2 ML INJ IV (23:50)
--- NOTE | 2019-09-14 23:57 | PC.NURSE ---
Admit/Evening Shift Note- Patient arrived to room from ER via stretcher at 2045. Patient alert and oriented and able to make needs known to staff. Patient pleasent, calm, and cooperative with care. Admit questions done, medications reviewed, and physical assessment done. Patient oriented to bed and bed controls, room, lights, phone, menu, and call velasquez/tv remote. Safety measures in place. patient agrees to call for assistance. bed alarm activated. call velasquez and phone within reach. will continue to monitor.
[2019-09-15] VITALS (7 sets, daily range): BP systolic 112–127; BP diastolic 51–89; PULSE 75–105; RESP 16–20; TEMP 36.2–37.4; O2SAT 96–100
[2019-09-15] MEDS: guaiFENesin ER 600 MG TAB PO (03:20)
[2019-09-15] MEDS: HYDROCODONE/ACET 5/325 TABLET 1 TAB PO ×5 (03:20→20:12)
--- NOTE | 2019-09-15 03:34 | P.HP_ITS ---
History of Present Illness History of Present Illness Date Patient Seen: 09/14/19 Time Patient Seen: 22:10 Chief complaint: Flu Narrative: Ms. Mariely Man is a 77-year-old female with a past medical history significant for rheumatoid arthritis on methotrexate and prednisone, gastroesophageal reflux, intermittent nausea who presents to the ER with shortness of breath. The patient reports 5-7 days worsening dyspnea developing a dry cough and fever and chills. The patient states she was seen by her PCP, Dr. Garsia, and was prescribed with guaifenesin with AC. The patient denies lightheadedness or dizziness, nasal congestion or sore throat. She endorses chest wall pain related to coughing. She reports no palpitations or pressure sensation. She reports no exertional dyspnea and denies wheezing. She has no abdominal pain but has a history of intermittent nausea for which she takes Zofran. She reports no changes in bowel or bladder habits. Upon arrival to the ER patient is afebrile with temperature of 102?, tachycardic at 123 beats per minute, blood pressure of 139/78, respirations of 20 saturating 99% on room air. Chest x-ray is obtained finding consolidation in the medial aspect of both lungs inferiorly right greater than left. EKG is obtained which finds no sinus tachycardia with a rate of 131 with PACs and right bundle-branch block. No evidence of ischemia or infarct. She has an elevated white count at 20 with a hemoglobin of 11.9 and hematocrit of 35.3 and platelets of 320. She has a PT of 11.7 with INR 1.0 and PTT of 31. She is mildly hyponatremic at 1:28 a.m. with a potassium of 3.6. Her BUN is 8 with a creatinine is 0.5. Her nonfasting glucose is 109. Lactate is found to be 1.0 and has a procalcitonin 0.06. Respiratory panel is obtained which is negative. The patient is treated with albuterol nebs in the emergency department, Tylenol 1 g, Toradol 15 mg, normal saline 1 L bolus, Rocephin is given IV as well as azithromycin requested IV. The patient admitted to the medicine service with community-acquired pneu monia. Patient History Medical History GERD (gastroesophageal reflux disease) (Acute) Peripheral edema (Acute) Rheumatoid arthritis (Acute) Surgical History History of hand surgery (Acute) History of total left knee replacement (Acute) History of total right knee replacement (Acute) Status post total hip replacement, left (Acute) Status post wrist surgery (Acute) Family & Social History Family History Mother No problems noted. Father No problems noted. Social History: household members spouse Prior Living Arrangements House Safety & Behavioral: Feels Safe in Current Yes Environment Been Physically Hurt or No Threatened By a Person Suicidal Ideation Description None Suicide Plan Description No Plan Tobacco & Substance use: Smoking Status Never smoker alcohol intake never Substance Use Type does not use Comment: The patient lives in a single family home with her to whom she has been for 50 years. She knows little of her father's health is he has been estranged. Her mother of old age. She has no siblings is an only child. She has 2 children that she describes both is in good health. Smoking: Patient states she has never used tobacco products. Alcohol: Patient denies consuming alcohol beverages. Substance use: Patient denies recreational pharmaceuticals, herbal or cannabis products. Advanced directives: The patient states her desire to be DNR DNI. She designates her to be her surrogate decision maker. Meds Home Medications and Allergies Home Medications Medication Instructions Recorded Confirmed Type methotrexate sodium 0.8 ml IM QWEEK 09/29/18 09/15/19 History nitrofurantoin macrocrystal 100 mg PO Q OTHER DAY 09/29/18 09/15/19 History nystatin 1 applic TOPICAL BID 09/29/18 09/15/19 History omeprazole 40 mg PO DAILY 09/29/18 09/15/19 History ondansetron 4 mg PO Q4H PRN 09/29/18 09/15/19 History spironolactone 100 mg PO QAM 09/29/18 09/15/19 History alendronate 70 mg PO QWEEK #4 tab 10/04/18 09/15/19 Rx hydrocodone-acetaminophen 0.5 tab PO Q6H PRN #30 tab 10/04/18 09/15/19 Rx hydrocodone-acetaminophen 1 tab PO Q4H PRN #60 tab 10/04/18 09/15/19 Rx Allergies Allergy/AdvReac Type Severity Reaction Status Date / Time morphine AdvReac Severe Vomiting Verified 10/02/18 07:51 meperidine [MEPERIDINE] AdvReac Unknown VOMITING Verified 10/02/18 07:51 oxycodone [OXYCODONE] AdvReac Unknown NAUSEA Verified 09/29/18 13:53 Review of Systems Review of Systems Narrative: All systems are reviewed and are unremarkable accepted noted in the HPI above. Exam Vital Signs (past 8 hours): - 09/14/19 19:52 09/14/19 20:04 09/14/19 20:35 Temperature 98.6 F 98.5 F Pulse Rate 124 H 106 H Respiratory Rate 29 H 17 Blood Pressure Blood Pressure [Left Arm] 106/52 L Pulse Oximetry 92 95 09/14/19 20:45 09/14/19 23:00 Temperature 100.6 F H 97.3 F L Pulse Rate 105 H 98 H Respiratory Rate 19 16 Blood Pressure 107/58 L 106/59 L Blood Pressure [Left Arm] Pulse Oximetry 97 96 Oxygen Delivery Method Room Air Oxygen Flow Rate 0 Narrative Exam Narrative: GENERAL APPEARANCE: well developed, adequately nourished elderly female in no acute distress. HEENT: Normocephalic, PERRLA, conjunctiva clear, EOMs intact, no rhinorrhea, mucous membranes are moist and pink without lesions or exudate. NECK/THYROID: neck supple, no JVD, no thyromegaly, trachea midline. LYMPH NODES: no cervical or supraclavicular lymphadenopathy. SKIN: [place], warm and dry, no visible lesions, rashes. HEART: regular rate and rhythm, S1-S2, no murmur, no rubs or gallops, brisk capillary refill, no edema LUNGS: Clear bilateral upper lobes, crackles right lower lobe, no coarseness or wheezing, no cough present on deep inspiration CHEST: Symmetrical movement, no accessory muscle use, good tidal volume. ABDOMEN: Soft, no distention, no abdominal tenderness, no guarding or peritoneal signs, no organomegaly, no flank or suprapubic tenderness, active bowel tones. EXTREMITIES: moves all extremities, strength is 5/5 and symmetrical, no deformities or joint effusions. NEUROLOGIC: AAO x person place and time, no focal neurologic deficits, sensation intact to light touch, hearing grossly normal to speech. PSYCH: cooperative, appropriate with stable behavior Objective Labs Result Diagrams: 09/14/19 17:10 09/14/19 17:10 Labs: Laboratory Results - last 24 hr 09/14/19 09/14/19 09/14/19 17:10 17:10 17:10 WBC 20.0 H RBC 3.68 L Hgb 11.9 L Hct 35.3 L MCV 95.9 MCH 32.3 MCHC 33.7 RDW 15.6 H Plt Count 320 Neut % (Auto) 87.0 H Lymph % (Auto) 6.8 L [place] % (Auto) 5.7 Eos % (Auto) 0.1 L Baso % (Auto) 0.4 Neut # (Auto) 40838 H Lymph # (Auto) 1400 [place] # (Auto) 1100 H Eos # (Auto) 0 Baso # (Auto) 100 PT 11.7 INR 1.0 APTT 31 Sodium Potassium Chloride Carbon Dioxide BUN Creatinine Estimated GFR BUN/Creatinine Ratio Glucose Lactate Calcium Magnesium Total Bilirubin AST ALT Alkaline Phosphatase Total Protein Albumin Globulin Albumin/Globulin Ratio Lipase Procalcitonin 0.06 Chlamy pneumoniae PCR Adenovirus (PCR) B.parapertussis DNA PCR Coronavirus OC43 (PCR) Coronavirus HKU1 (PCR) Coronavirus 229E (PCR) Coronavirus NL63 (PCR) Human Metapneumovir PCR Influenza Type A (PCR) Influenza Type B (PCR) M. pneumoniae (PCR) Parainfluenza 1 (PCR) Parainfluenza 2 (PCR) Parainfluenza 3 (PCR) Parainfluenza 4 (PCR) RSV (PCR) Entero/Rhino (PCR) 09/14/19 09/14/19 09/14/19 17:10 17:10 17:10 WBC RBC Hgb Hct MCV MCH MCHC RDW Plt Count Neut % (Auto) Lymph % (Auto) [place] % (Auto) Eos % (Auto) Baso % (Auto) Neut # (Auto) Lymph # (Auto) [place] # (Auto) Eos # (Auto) Baso # (Auto) PT INR APTT Sodium 128 L Potassium 3.6 Chloride 90 L Carbon Dioxide 28 BUN 8 Creatinine 0.50 L Estimated GFR > 60.0 BUN/Creatinine Ratio 16.0 Glucose 109 Lactate 1.0 Calcium 9.0 Magnesium Total Bilirubin 0.7 AST 22 ALT 11 Alkaline Phosphatase 56 Total Protein 6.4 Albumin 3.9 Globulin 2.5 Albumin/Globulin Ratio 1.6 Lipase 21 L Procalcitonin Chlamy pneumoniae PCR Not detected Adenovirus (PCR) Not detected B.parapertussis DNA PCR Not detected Coronavirus OC43 (PCR) Not detected Coronavirus HKU1 (PCR) Not detected Coronavirus 229E (PCR) Not detected Coronavirus NL63 (PCR) Not detected Human Metapneumovir PCR Not detected Influenza Type A (PCR) Not detected Influenza Type B (PCR) Not detected M. pneumoniae (PCR) Not detected Parainfluenza 1 (PCR) Not detected Parainfluenza 2 (PCR) Not detected Parainfluenza 3 (PCR) Not detected Parainfluenza 4 (PCR) Not detected RSV (PCR) Not detected Entero/Rhino (PCR) Not detected 09/14/19 17:10 WBC RBC Hgb Hct MCV MCH MCHC RDW Plt Count Neut % (Auto) Lymph % (Auto) [place] % (Auto) Eos % (Auto) Baso % (Auto) Neut # (Auto) Lymph # (Auto) [place] # (Auto) Eos # (Auto) Baso # (Auto) PT INR APTT Sodium Potassium Chloride Carbon Dioxide BUN Creatinine Estimated GFR BUN/Creatinine Ratio Glucose Lactate Calcium Magnesium 1.7 Total Bilirubin AST ALT Alkaline Phosphatase Total Protein Albumin Globulin Albumin/Globulin Ratio Lipase Procalcitonin Chlamy pneumoniae PCR Adenovirus (PCR) B.parapertussis DNA PCR Coronavirus OC43 (PCR) Coronavirus HKU1 (PCR) Coronavirus 229E (PCR) Coronavirus NL63 (PCR) Human Metapneumovir PCR Influenza Type A (PCR) Influenza Type B (PCR) M. pneumoniae (PCR) Parainfluenza 1 (PCR) Parainfluenza 2 (PCR) Parainfluenza 3 (PCR) Parainfluenza 4 (PCR) RSV (PCR) Entero/Rhino (PCR) Assessment & Plan Assessment & Plan narrative: This is a 78-year-old female with 7 days of progressive shortness of breath with associated cough fevers and chills. Community-acquired pneumonia, acute, present on admission, active. -patient with symptoms that have been progressive for 1 week, seen by her PCP and treated symptomatically -patient presents today with a fever of 102, tachycardic at 123, resolved with fluid bolus, with stable blood pressure 139/78. Will hold home med indication of spironolactone. -chest x-ray reveals consolidation in the medial aspect of lungs inferiorly with right greater than left. -elevated WBCs at 20.0, procalcitonin is 0.06, lactate is 1.0, respiratory panel is negative. -ceftriaxone 2 g IV daily. -azithromycin 500 mg IV daily for 3 days. -respiratory therapy to evaluate and treat -albuterol nebulizer every 2 hours as needed, DuoNeb every 6 hours as needed. -acetaminophen 650 mg every 6 hours as needed for mild pain and fever. -will obtain Legionella and strep urine antigens -will follow CBC and procalcitonin. 2. Rheumatoid arthritis, chronic, stable -patient has been treated with methotrexate and prednisone which are continued. -patient with chronic pain, [place] 1 tablet for moderate pain, 2 tablets for severe pain. 3. Gastroesophageal reflux disorder, chronic, stable. -patient at present denies abdominal pain or heartburn. -intermittent nausea related to medication for which she takes Zofran. -ordered Protonix 20 mg daily. VTE prophylaxis: SCDs and heparin twice daily. IV fluid: Normal saline 50 cc/hour Diet: Low-sodium The patient is admitted to the hospital related to severity of her symptoms and risk for complications and adverse events. The patient is admitted as inpatient with expected length of stay to be greater than 2 midnights. Quality VTE Deep Vein Thrombosis/Pulmonary Embolism Present on Admission: No
[2019-09-15] MEDS: PANTOPRAZOLE 40 MG TABLET PO (06:01)
[2019-09-15 06:22] LABS: Add Manual Diff / Slide Review NO; Basophils Absolute Auto 0 /uL (0-100); Basophils Percent Auto 0.2 % (0-2); Eosinophils Absolute Auto 0 /uL (0-450); Eosinophils Percent Auto 0.1 % (2-4); Hematocrit 31.1 % (36-46); Hemoglobin 10.3 g/dL (12.0-16.0); Lymphocytes Absolute Auto 1100 /uL (1100-4500); Lymphocytes Percent Auto 5.5 % (25-40); Mean Corpuscular HGB Conc 33.3 % (30-36); Mean Corpuscular Hemoglobin 31.9 PG (26-34); Mean Corpuscular Volume 95.8 fL (80-100); Monocytes Absolute Auto 1000 /uL (0-900); Monocytes Percent Auto 4.8 % (3-14); Neutrophils Absolute Auto 17900 /uL (1500-7000); Neutrophils Percent Auto 89.4 % (50-75); Platelet Count 277 X10^3/uL (150-400); Red Blood Cell Count 3.24 X10^6/uL (4.0-5.2); Red Cell Distribution Width 15.7 % (11.6-14.8); White Blood Cell Count 20.1 X10^3/uL (4.5-11.0)
[2019-09-15 06:27] LABS: Blood Urea Nitrogen 6 mg/dL (7-17); Calcium 8.1 mg/dL (8.4-10.2); Carbon Dioxide 31 mmol/L (22-32); Chloride 96 mmol/L (98-107); Estimated Glomerular Filt Rate > 60.0 mL/min (>60); Glucose 94 mg/dL (80-110); HEMOLYSIS < 15 (0-50); Potassium 3.9 mmol/L (3.4-5.1); Sodium 132 mmol/L (137-145)
[2019-09-15] MEDS: HEPARIN 5,000 UNIT/ML VIAL 5000 UNIT SUBCUT ×2 (07:59→20:13)
[2019-09-15] MEDS: predniSONE 10 MG TABLET PO (07:59)
--- NOTE | 2019-09-15 11:51 | P.PN_ITS ---
Subjective Subjective Date Patient Seen: 09/15/19 Time Patient Seen: 09:25 Interval history: Ms. Mariely Man is a 77-year-old female with a past medical history significant for rheumatoid arthritis on methotrexate and prednisone, gastroesophageal reflux, intermittent nausea who presented to the ER with shortness of breath, she is seen today for follow-up after being admitted for community-acquired pneumonia. She feels slightly better but still has significant dyspnea on exertion when she ambulates even to the bathroom. Her procalcitonin 1 from 0.06-0.4 today. Her white count remains elevated at 20. She was started on ceftriaxone and azithromycin. She denies any fevers or chills overnight. She has no nausea or vomiting currently. She denies any ab dominal pain, dysuria, or diarrhea. Exam Vital Signs (past 8 hours): - 09/15/19 06:00 09/15/19 09:00 Temperature 97.8 F 99.4 F Pulse Rate 75 88 Respiratory Rate 18 18 Blood Pressure 118/73 112/51 L Pulse Oximetry 99 98 Oxygen Delivery Method Room Air Oxygen Flow Rate 0 Narrative Exam Narrative: GENERAL APPEARANCE: well developed, adequately nourished elderly female in no acute distress. HEENT: Normocephalic, PERRLA, conjunctiva clear, EOMs intact, no rhinorrhea, mucous membranes are moist and pink without lesions or exudate. NECK/THYROID: neck supple, no JVD, no thyromegaly, trachea midline. LYMPH NODES: no cervical or supraclavicular lymphadenopathy. SKIN: [place], warm and dry, no visible lesions, rashes. HEART: regular rate and rhythm, S1-S2, no murmur, no rubs or gallops, brisk capillary refill, no edema LUNGS: Clear bilateral upper lobes, right lower lobe rales, no coarseness or wheezing, no cough present on deep inspiration CHEST: Symmetrical movement, no accessory muscle use. ABDOMEN: Soft, no distention, no abdominal tenderness, no guarding or peritoneal signs, no organomegaly, no flank or suprapubic tenderness, active bowel tones. EXTREMITIES: moves all extremities, strength is 5/5 and symmetrical, no deformities or joint effusions. NEUROLOGIC: AAO x person place and time, no focal neurologic deficits, sensation intact to light touch, hearing grossly normal to speech. PSYCH: cooperative, appropriate with stable behavior Objective Labs Result Diagrams: 09/15/19 05:45 09/15/19 05:45 Labs: Laboratory Results - last 24 hr 09/14/19 09/14/19 09/14/19 17:10 17:10 17:10 WBC 20.0 H RBC 3.68 L Hgb 11.9 L Hct 35.3 L MCV 95.9 MCH 32.3 MCHC 33.7 RDW 15.6 H Plt Count 320 Neut % (Auto) 87.0 H Lymph % (Auto) 6.8 L [place] % (Auto) 5.7 Eos % (Auto) 0.1 L Baso % (Auto) 0.4 Neut # (Auto) 49453 H Lymph # (Auto) 1400 [place] # (Auto) 1100 H Eos # (Auto) 0 Baso # (Auto) 100 PT 11.7 INR 1.0 APTT 31 Sodium Potassium Chloride Carbon Dioxide BUN Creatinine Estimated GFR BUN/Creatinine Ratio Glucose Lactate Calcium Magnesium Total Bilirubin AST ALT Alkaline Phosphatase Total Protein Albumin Globulin Albumin/Globulin Ratio Lipase Procalcitonin 0.06 Chlamy pneumoniae PCR Adenovirus (PCR) B.parapertussis DNA PCR Coronavirus OC43 (PCR) Coronavirus HKU1 (PCR) Coronavirus 229E (PCR) Coronavirus NL63 (PCR) Human Metapneumovir PCR Influenza Type A (PCR) Influenza Type B (PCR) M. pneumoniae (PCR) Parainfluenza 1 (PCR) Parainfluenza 2 (PCR) Parainfluenza 3 (PCR) Parainfluenza 4 (PCR) RSV (PCR) Entero/Rhino (PCR) 09/14/19 09/14/19 09/14/19 17:10 17:10 17:10 WBC RBC Hgb Hct MCV MCH MCHC RDW Plt Count Neut % (Auto) Lymph % (Auto) [place] % (Auto) Eos % (Auto) Baso % (Auto) Neut # (Auto) Lymph # (Auto) [place] # (Auto) Eos # (Auto) Baso # (Auto) PT INR APTT Sodium 128 L Potassium 3.6 Chloride 90 L Carbon Dioxide 28 BUN 8 Creatinine 0.50 L Estimated GFR > 60.0 BUN/Creatinine Ratio 16.0 Glucose 109 Lactate 1.0 Calcium 9.0 Magnesium Total Bilirubin 0.7 AST 22 ALT 11 Alkaline Phosphatase 56 Total Protein 6.4 Albumin 3.9 Globulin 2.5 Albumin/Globulin Ratio 1.6 Lipase 21 L Procalcitonin Chlamy pneumoniae PCR Not detected Adenovirus (PCR) Not detected B.parapertussis DNA PCR Not detected Coronavirus OC43 (PCR) Not detected Coronavirus HKU1 (PCR) Not detected Coronavirus 229E (PCR) Not detected Coronavirus NL63 (PCR) Not detected Human Metapneumovir PCR Not detected Influenza Type A (PCR) Not detected Influenza Type B (PCR) Not detected M. pneumoniae (PCR) Not detected Parainfluenza 1 (PCR) Not detected Parainfluenza 2 (PCR) Not detected Parainfluenza 3 (PCR) Not detected Parainfluenza 4 (PCR) Not detected RSV (PCR) Not detected Entero/Rhino (PCR) Not detected 09/14/19 09/15/19 09/15/19 17:10 05:45 05:45 WBC 20.1 H RBC 3.24 L Hgb 10.3 L Hct 31.1 L MCV 95.8 MCH 31.9 MCHC 33.3 RDW 15.7 H Plt Count 277 Neut % (Auto) 89.4 H Lymph % (Auto) 5.5 L [place] % (Auto) 4.8 Eos % (Auto) 0.1 L Baso % (Auto) 0.2 Neut # (Auto) 64062 H Lymph # (Auto) 1100 [place] # (Auto) 1000 H Eos # (Auto) 0 Baso # (Auto) 0 PT INR APTT Sodium 132 L Potassium 3.9 Chloride 96 L Carbon Dioxide 31 BUN 6 L Creatinine 0.50 L Estimated GFR > 60.0 BUN/Creatinine Ratio 12.0 Glucose 94 Lactate Calcium 8.1 L Magnesium 1.7 Total Bilirubin AST ALT Alkaline Phosphatase Total Protein Albumin Globulin Albumin/Globulin Ratio Lipase Procalcitonin Chlamy pneumoniae PCR Adenovirus (PCR) B.parapertussis DNA PCR Coronavirus OC43 (PCR) Coronavirus HKU1 (PCR) Coronavirus 229E (PCR) Coronavirus NL63 (PCR) Human Metapneumovir PCR Influenza Type A (PCR) Influenza Type B (PCR) M. pneumoniae (PCR) Parainfluenza 1 (PCR) Parainfluenza 2 (PCR) Parainfluenza 3 (PCR) Parainfluenza 4 (PCR) RSV (PCR) Entero/Rhino (PCR) 09/15/19 05:45 WBC RBC Hgb Hct MCV MCH MCHC RDW Plt Count Neut % (Auto) Lymph % (Auto) [place] % (Auto) Eos % (Auto) Baso % (Auto) Neut # (Auto) Lymph # (Auto) [place] # (Auto) Eos # (Auto) Baso # (Auto) PT INR APTT Sodium Potassium Chloride Carbon Dioxide BUN Creatinine Estimated GFR BUN/Creatinine Ratio Glucose Lactate Calcium Magnesium Total Bilirubin AST ALT Alkaline Phosphatase Total Protein Albumin Globulin Albumin/Globulin Ratio Lipase Procalcitonin 0.40 Chlamy pneumoniae PCR Adenovirus (PCR) B.parapertussis DNA PCR Coronavirus OC43 (PCR) Coronavirus HKU1 (PCR) Coronavirus 229E (PCR) Coronavirus NL63 (PCR) Human Metapneumovir PCR Influenza Type A (PCR) Influenza Type B (PCR) M. pneumoniae (PCR) Parainfluenza 1 (PCR) Parainfluenza 2 (PCR) Parainfluenza 3 (PCR) Parainfluenza 4 (PCR) RSV (PCR) Entero/Rhino (PCR) Assessment & Plan Assessment & Plan narrative: Ms. Mariely Man is a 77-year-old female with a past medical history significant for rheumatoid arthritis on methotrexate and prednisone, gastroesophageal reflux, intermittent nausea who presented to the ER with shortness of breath and was admitted for community-acquired pneumonia. 1. Community-acquired pneumonia, acute, present on admission, active. -in the setting of immunosuppression in given her chronic prednisone and methotrexate. She has a profound leukocytosis which is not improving and a rising procalcitonin. While feeling improved today, she still has significant dyspnea on exertion ambulating to the bathroom. Anticipate this could be a couple of days before she gets improvement given her immunosuppression. She remains on appropriate antibiotic therapy at this time. -patient with symptoms that have been progressive for 1 week, seen by her PCP and treated symptomatically -patient presents today with a fever of 102, tachycardic at 123, resolved with fluid bolus, with stable blood pressure 139/78. Will hold home med indication of spironolactone. -chest x-ray reveals consolidation in the medial aspect of lungs inferiorly with right greater than left. -elevated WBCs at 20.0, procalcitonin is 0.06, lactate is 1.0, respiratory panel is negative. -ceftriaxone 2 g IV daily. -azithromycin 500 mg IV daily for 3 days. -respiratory therapy to evaluate and treat -albuterol nebulizer every 2 hours as needed, DuoNeb every 6 hours as needed. -acetaminophen 650 mg every 6 hours as needed for mild pain and fever. -will obtain Legionella and strep urine antigens -will follow CBC and procalcitonin. -respiratory panel negative 2. Rheumatoid arthritis, chronic, stable -patient has been treated with methotrexate and prednisone which are continued. -patient with chronic pain, [place] 1 tablet for moderate pain, 2 tablets for severe pain. 3. Gastroesophageal reflux disorder, chronic, stable. -patient at present denies abdominal pain or heartburn. -intermittent nausea related to medication for which she takes Zofran. -ordered Protonix 20 mg daily. VTE prophylaxis: SCDs and heparin twice daily Diet: Low-sodium Dispo: Anticipate discharge home in the next 1-2 days once she is symptomatically improved from her pneumonia. Quality VTE Deep Vein Thrombosis/Pulmonary Embolism Present on Admission: No
--- NOTE | 2019-09-15 13:03 | CM.IDA ---
Discharge Planning/Care Management CM Discharge Assessment Start: 09/15/19 12:51 Freq: Status: Active Protocol: Document 09/15/19 12:52 JAYME (Rec: 09/15/19 13:03 JAYME [id number]) Discharge Planning Assessment Assigned Home Extension Agent MONIQUE Burton DPOA/Assigned Designee Name Rajendra Man, spouse Contact Information [phone], cell Advance Directives? Yes Advance Directives on File No History Provided By Patient,Significant Other, Medical Record Prior Living Arrangements House Household Members spouse Type of transporation used prior to Relies on Others admit Independent with ADL's Yes: Mostly. H/o medical complications and multiple surgeries Is patient alert and oriented? Yes Needs Assistance With Bathing,Meal Prep,Managing Medications,Home Chores / Shopping Comment At least SBA Barriers to Discharge No Comment Pt admitted inpt w/pneumonia, h/o RA and multiple orthopedic surgeries. PCP: Dr Ady Zapata: DELIO/ [place] Met w/pt and her at bedside this morning, explained role. Pt admits she has relied on her for support for many years d/t her severe RA and multiple hospitalizations and Orthopedic procedures. Pt feels confident about her return home w/spouse to assist . No needs expected from this SNUFF GRINDER AND SCREENER Following closely in case DC needs or concerns arise. MONIQUE Jim Discharge Plan Home Transportation Arrangement Family Additional Comment R/o need for HH (?) Whiteboard Updated in Patient Room with Yes name and ext. # of Home Extension Agent
[2019-09-15] MEDS: levoFLOXacin 750 MG/150 ML PIGGYBACK 100 MG IV (16:04)
[2019-09-15] MEDS: ONDANSETRON 4 MG ODT SL (17:47)
[2019-09-15 18:15] LABS: Bacteria Urine None Seen; WBC Urine None Seen (0-5/HPF)
[2019-09-15 18:33] LABS: Appearance Urine UA CLEAR; Bilirubin Urine UA NEGATIVE (NEGATIVE); Color Urine UA YELLOW; Glucose Urine UA NEGATIVE (Negative); Ketones Urine UA TRACE (NEGATIVE); Leukocyte Esterase Urine UA NEGATIVE (NEGATIVE); Nitrite Urine UA NEGATIVE (Negative); Occult Blood Urine UA 3+ (Negative); Protein Urine UA NEGATIVE (Negative); Urobilinogen Urine UA 0.2 E.U./dL (0.2)
--- NOTE | 2019-09-15 18:46 | PC.NURSE ---
Assumed care of pt at 1500. Pt sitting up in bed during bedside hand-off. Intermittent cough with yellow thick sputum. Using flutter valve and I.S. per R.T. instructions. Pt ambulating to bathroom HR elevated to 120-130. ICU called to notify of HR elevation. Once pt settled down in bed HR returned to approx 90 bpm. Medicating per mar for chronic arthritic pain. Able to reposition independently in bed. Advised to do so for pressure injury prevention.
[2019-09-15 18:50] LABS: Culture Indicated Urine Cult Not Indicated; RBC Urine 1-5/HPF (0-5/HPF); Squamous Epithelial Cell Urine None Seen (0-5/HPF)
[2019-09-16] VITALS (8 sets, daily range): BP systolic 106–140; BP diastolic 61–89; PULSE 103–113; RESP 15–18; TEMP 36.8–38.2; O2SAT 96–99; BMI 17.1
[2019-09-16] MEDS: HYDROCODONE/ACET 5/325 TABLET 1 TAB PO ×6 (00:03→22:55)
[2019-09-16] MEDS: ONDANSETRON 4 MG ODT SL (03:00)
--- NOTE | 2019-09-16 04:28 | PC.NURSE ---
Addendum entered by Mariann Thacker R.N. 09/16/19 04:55: Patient reporting pain is already much better and that she feels she has difficulty swallowing related to her cough and that my tummy is upset as well from her cough. Original Note: Shift note: At start of shift during report, patient requests that pain meds be brought on time and her requested time was midnight. At patients requested time, patient reporting 8/10 pain, was laughing and joking with GENETIC COORDINATOR. At reassessment, patient appeared to be asleep. Called into patients room at 0300, patient reporting stomach pains and nausea requesting medication. Medicated per NOV. GENETIC COORDINATOR reported to this RN at 0420 that patient called stating you're late with my pain meds, which was the first time she had requested pain medication. This RN assessed patient, who was reporting 8/10 pain and still reporting nausea. Educated patient that giving her more pain medication while nauseated was not best practice, patient insistent on receiving pain medication. At time of assessment for pain, patient was sitting up in bed making pleasant conversation with this RN. Educated patient that she needed to eat when taking pain meds to prevent or alleviate nausea associated with narcotics. Patient acknowledged teaching and requested jello and crackers.
--- NOTE | 2019-09-16 06:24 | PC.NURSE ---
Weight discrepancy noted on am check. Patient's weight charted in admission assessment as 118kg, patient actual weight this am is 48kg which is 105.6 pounds. Current weight is from built in bed scale and would be the most current and accurate.
[2019-09-16] MEDS: PANTOPRAZOLE 40 MG TABLET PO (06:44)
[2019-09-16 07:12] LABS: Blood Urea Nitrogen 6 mg/dL (7-17); Calcium 8.8 mg/dL (8.4-10.2); Carbon Dioxide 26 mmol/L (22-32); Chloride 94 mmol/L (98-107); Estimated Glomerular Filt Rate > 60.0 mL/min (>60); Glucose 123 mg/dL (80-110); HEMOLYSIS < 15 (0-50); Potassium 3.3 mmol/L (3.4-5.1); Sodium 129 mmol/L (137-145)
[2019-09-16 07:19] LABS: Add Manual Diff / Slide Review NO; Basophils Absolute Auto 100 /uL (0-100); Basophils Percent Auto 0.3 % (0-2); Eosinophils Absolute Auto 0 /uL (0-450); Hematocrit 33.8 % (36-46); Lymphocytes Absolute Auto 600 /uL (1100-4500); Lymphocytes Percent Auto 2.9 % (25-40); Mean Corpuscular HGB Conc 32.6 % (30-36); Mean Corpuscular Hemoglobin 31.2 PG (26-34); Mean Corpuscular Volume 95.7 fL (80-100); Monocytes Absolute Auto 1500 /uL (0-900); Monocytes Percent Auto 6.6 % (3-14); Neutrophils Absolute Auto 19900 /uL (1500-7000); Neutrophils Percent Auto 90.2 % (50-75); Platelet Count 325 X10^3/uL (150-400); Red Blood Cell Count 3.53 X10^6/uL (4.0-5.2); Red Cell Distribution Width 15.7 % (11.6-14.8); White Blood Cell Count 22.1 X10^3/uL (4.5-11.0)
[2019-09-16 07:35] LABS: Procalcitonin 0.17 ng/mL (<0.5)
[2019-09-16] MEDS: ONDANSETRON 4 MG/2 ML INJ IV (08:54)
[2019-09-16] MEDS: SODIUM CHLORIDE 0.9% FLUSH 10 ML IV (08:59)
[2019-09-16] MEDS: HEPARIN 5,000 UNIT/ML VIAL 5000 UNIT SUBCUT ×2 (10:42→22:16)
[2019-09-16] MEDS: predniSONE 10 MG TABLET PO (10:42)
[2019-09-16] MEDS: SODIUM CHLORIDE 0.9% 1,000 ML 75 ML IV (10:42)
--- NOTE | 2019-09-16 11:58 | PC.NURSE ---
Patient reports having a horrible night, I didn't sleep, I was nauseous, and now I have diarrhea. This morning she states her chronic pain level is high but did not want to take pain medication or attempt other intervention at this time due to her upset stomach. Given warm blankets for comfort per her request, and medicated with IV zofran per prn order for nausea. Patient later agreeable to received her morning medications and tried taking norco to attempt to rest. IV fluids started per order today, patient encouraged to try to drink water as well as her tea and pepsi that she is used to drinking. Call light within reach, bed alarm active for safety, will continue to monitor.
[2019-09-16 12:27] LABS: Adenovirus F 40/41 Not Detected (Not Detect); Astrovirus Not Detected (Not Detect); Campylobacter Not Detected (Not Detect); Clostridium difficile toxin AB Not Detected (Not Detect); Cryptosporidium Not Detected (Not Detect); Cyclospora cayetanensis Not Detected (Not Detect); Entamoeba histolytica Not Detected (Not Detect); Enteroaggregative E.coli Not Detected (Not Detect); Enteropathogenic E.coli Not Detected (Not Detect); Enterotoxigenic E.coli It/st Not Detected (Not Detect); Giardia lamblia Not Detected (Not Detect); Norovirus GI/GII Not Detected (Not Detect); Plesiomonsa shigelloides Not Detected (Not Detect); Rotavirus A Not Detected (Not Detect); Salmonella Not Detected (Not Detect); Sapovirus Not Detected (Not Detect); Shiga-like toxin-prod E.coli Not Detected (Not Detect); Shigella/Enteroinvasive E.coli Not Detected (Not Detect); Vibrio Not Detected (Not Detect); Vibrio cholerae Not Detected (Not Detect); Yersinia enterocolitica Not Detected (Not Detect)
--- NOTE | 2019-09-16 13:41 | DIET.PN ---
Dietary Progress Note Assessment: 78y F screened by nutrition r/t low BMI, intermittent nausea and unintentional wt loss. Pt was suprised to learn her current wt of 105# as it is 15# less than UBW. Pt endorses low appetite and intake recently r/t pneumonia and intermittent nausea. Pt loves omelettes but could not eat one this am and rejected lunch. Pt thinks she can tolerate chocolate milkshake c protein powder, so will send one as trial to support her PCM. HT: 167.6cm WT: 48kg UBW: 59kg (10/02/18) BMI:17.1 MNA:14 (faulty r/t wt error) Darnell: 20 Nutrition Diagnosis: severe acute on chronic PCM r/t intermittent nausea and reduced appetite from acute pneumonia aeb BMI 17.1 (severe for age), 19% unintentional wt loss in <1y, moderate losses in subcutaneous fat and muscle system wide, and pt reports being fatigued. Interventions: Find acceptable ONS to support kcal and PRO needs for PCM Diet Order: Low Sodium EER: 1500kcal, 63g PRO (1.3g/kg per malnutrition), 1.5L fluids Monitoring/Evaluations: ONS tolerance, weight, POs
--- NOTE | 2019-09-16 14:17 | PM.PN.1 ---
Subjective Subjective Date Patient Seen: 09/16/19 Time Patient Seen: 14:17 Interval history: Ms. Mariely Man is a 77-year-old female with a past medical history significant for rheumatoid arthritis on methotrexate and prednisone, gastroesophageal reflux, intermittent nausea who presented to the ER with shortness of breath, she is seen today for follow-up after being admitted for community-acquired pneumonia. Today she feels slightly better with her shortness of breath however starting yesterday afternoon she developed diarrhea. Overall she feels much worse today due to nausea and her diarrhea. Her white blood cell count increased slightly today, and her diarrhea has continued. Her antibiotics were changed to Levaquin yesterday. She further had a fever this afternoon to 100.7. Her GI panel was negative. Further workup for her fever includes a UA and blood cultures to be drawn today. Exam Vital Signs (past 8 hours): - 09/16/19 06:19 09/16/19 08:00 09/16/19 08:59 Temperature 99.3 F 98.8 F 100.3 F H Pulse Rate 110 H Respiratory Rate 16 Blood Pressure 106/66 Pulse Oximetry 96 09/16/19 12:00 Temperature 100.7 F H Pulse Rate 113 H Respiratory Rate 15 Blood Pressure 108/61 Pulse Oximetry 98 Oxygen Delivery Method Room Air Oxygen Flow Rate 0 Narrative Exam Narrative: GENERAL APPEARANCE: well developed, adequately nourished elderly female in no acute distress but appears more fatigued and mildly ill today. HEENT: Normocephalic, PERRLA, conjunctiva clear, EOMs intact, no rhinorrhea, mucous membranes are moist and pink without lesions or exudate. NECK/THYROID: neck supple, no JVD, no thyromegaly, trachea midline. LYMPH NODES: no cervical or supraclavicular lymphadenopathy. SKIN: [place], warm and dry, no visible lesions, rashes. HEART: regular rate and rhythm, S1-S2, no murmur, no rubs or gallops, brisk capillary refill, no edema LUNGS: Clear bilateral upper lobes, right lower lobe rales, no coarseness or wheezing, no cough present on deep inspiration CHEST: Symmetrical movement, no accessory muscle use. ABDOMEN: Soft, no distention, no abdominal tenderness, no guarding or peritoneal signs, no organomegaly, no flank or suprapubic tenderness, active bowel tones. EXTREMITIES: moves all extremities, strength is 5/5 and symmetrical, no deformities or joint effusions. NEUROLOGIC: AAO x person place and time, no focal neurologic deficits, sensation intact to light touch, hearing grossly normal to speech. PSYCH: cooperative, appropriate with stable behavior Objective Labs Result Diagrams: 09/16/19 06:45 09/16/19 06:45 Labs: Laboratory Results - last 24 hr 09/14/19 09/16/19 09/16/19 16:45 06:45 06:45 WBC 22.1 H RBC 3.53 L Hgb 11.0 L Hct 33.8 L MCV 95.7 MCH 31.2 MCHC 32.6 RDW 15.7 H Plt Count 325 Neut % (Auto) 90.2 H Lymph % (Auto) 2.9 L [place] % (Auto) 6.6 Eos % (Auto) 0.0 L Baso % (Auto) 0.3 Neut # (Auto) 85805 H Lymph # (Auto) 600 L [place] # (Auto) 1500 H Eos # (Auto) 0 Baso # (Auto) 100 Sodium Potassium Chloride Carbon Dioxide BUN Creatinine Estimated GFR BUN/Creatinine Ratio Glucose Calcium Procalcitonin 0.17 Urine Color Yellow Urine Appearance Clear Urine pH 6.0 Ur Specific [place] 1.010 Urine Protein Negative Urine Glucose (UA) Negative Urine Ketones Trace H Urine Occult Blood 3+ H Urine Nitrate Negative Urine Bilirubin Negative Urine Urobilinogen 0.2 Ur Leukocyte Esterase Negative Urine RBC 1-5/hpf Urine WBC None seen Ur Squamous Epith Cells None seen Urine Bacteria None seen Ur Culture Indicated? Cult not indicated Stl C. cayetanensis PCR Stool Rotavirus (PCR) Stool Adenovirus (PCR) Stool Astrovirus (PCR) Stool Cryptosporidium PCR Stl E.coli Shiga Tox PCR St Sh/Enteroin Ecoli PCR Stool E coli O157 PCR Stl Enterotoxigenic E PCR Stool EPEC (PCR) Stl E. histolytica PCR Stool Giardia Lamblia PCR Stool Sapovirus (PCR) Stl P. shigelloides PCR St Y.enterocolitica PCR Stool Vibrio (PCR) Stl Vibrio cholerae PCR Stl Enteroaggr Ecoli PCR Stl Norovirus GI/GII PCR Campylobacter (PCR) C. difficile Tox (PCR) Salmonella (PCR) 09/16/19 09/16/19 06:45 09:30 WBC RBC Hgb Hct MCV MCH MCHC RDW Plt Count Neut % (Auto) Lymph % (Auto) [place] % (Auto) Eos % (Auto) Baso % (Auto) Neut # (Auto) Lymph # (Auto) [place] # (Auto) Eos # (Auto) Baso # (Auto) Sodium 129 L Potassium 3.3 L Chloride 94 L Carbon Dioxide 26 BUN 6 L Creatinine 0.50 L Estimated GFR > 60.0 BUN/Creatinine Ratio 12.0 Glucose 123 H Calcium 8.8 Procalcitonin Urine Color Urine Appearance Urine pH Ur Specific [place] Urine Protein Urine Glucose (UA) Urine Ketones Urine Occult Blood Urine Nitrate Urine Bilirubin Urine Urobilinogen Ur Leukocyte Esterase Urine RBC Urine WBC Ur Squamous Epith Cells Urine Bacteria Ur Culture Indicated? Stl C. cayetanensis PCR Not detected Stool Rotavirus (PCR) Not detected Stool Adenovirus (PCR) Not detected Stool Astrovirus (PCR) Not detected Stool Cryptosporidium PCR Not detected Stl E.coli Shiga Tox PCR Not detected St Sh/Enteroin Ecoli PCR Not detected Stool E coli O157 PCR Not Reportable Stl Enterotoxigenic E PCR Not detected Stool EPEC (PCR) Not detected Stl E. histolytica PCR Not detected Stool Giardia [place]lia PCR Not detected Stool Sapovirus (PCR) Not detected Stl P. shigelloides PCR Not detected St Y.enterocolitica PCR Not detected Stool Vibrio (PCR) Not detected Stl Vibrio cholerae PCR Not detected Stl Enteroaggr Ecoli PCR Not detected Stl Norovirus GI/GII PCR Not detected Campylobacter (PCR) Not detected C. difficile Tox (PCR) Not detected Salmonella (PCR) Not detected Assessment & Plan Assessment & Plan narrative: Ms. Mariely Man is a 77-year-old female with a past medical history significant for rheumatoid arthritis on methotrexate and prednisone, gastroesophageal reflux, intermittent nausea who presented to the ER with shortness of breath and was admitted for community-acquired pneumonia. 1. Community-acquired pneumonia, acute, present on admission, active. -in the setting of immunosuppression in given her chronic prednisone and methotrexate. She has a profound leukocytosis which is not improving and a rising procalcitonin. She developed likely antibiotic associated diarrhea with ceftriaxone and azithromycin. She was changed to Levaquin yesterday. Her white blood cell count is rising. She again had low-grade fever today. -patient with symptoms that have been progressive for 1 week, seen by her PCP and treated symptomatically -patient presented with a fever of 102, tachycardic at 123, resolved with fluid bolus, with stable blood pressure 139/78. Will hold home med indication of spironolactone. -chest x-ray reveals consolidation in the medial aspect of lungs inferiorly with right greater than left. -started on ceftriaxone and azithromycin, this was changed to Levaquin after developing diarrhea. Currently on Levaquin 750 mg every 24 hours. Consider change to Zosyn. -respiratory therapy to evaluate and treat -albuterol nebulizer every 2 hours as needed, DuoNeb every 6 hours as needed. -acetaminophen 650 mg every 6 hours as needed for mild pain and fever. -Legionella and strep urine antigens pending -will follow CBC add procalcitonin is down trending. -respiratory panel negative 2. Rheumatoid arthritis, chronic, stable -patient has been treated with methotrexate and prednisone which are continued. -patient with chronic pain, [place] 1 tablet for moderate pain, 2 tablets for severe pain. 3. Diarrhea, acute -likely secondary to antibiotic associated diarrhea. Started with ceftriaxone and azithromycin, and antibiotics were changed to Levaquin yesterday. She still has some diarrhea. GI panel sent today was negative for infectious etiologies. She is not tolerating much p.o. intake and has associated hyponatremia, hypokalemia. -continue fluid at 50 cc/hour - consider CT abdomen / pelvis if continued symptoms and worsening signs of infection. 4. Hyponatremia, acute on chronic -worsened today to 129 in setting decreased p.o. intake, hypokalemia, and diarrhea. -normal saline at 50 cc/hours noted above -continue to follow chemistries 5. Hypokalemia, acute -secondary to GI losses. Continue supplementation and continue to follow chemistries. 6. Gastroesophageal reflux disorder, chronic, stable. -patient at present denies abdominal pain or heartburn. -intermittent nausea related to medication for which she takes Zofran. -ordered Protonix 20 mg daily. VTE prophylaxis: SCDs and heparin twice daily Diet: Low-sodium Dispo: Anticipate discharge home in the next 1-2 days once she is symptomatically improved from her pneumonia. Quality VTE Deep Vein Thrombosis/Pulmonary Embolism Present on Admission: No
[2019-09-16 18:04] LABS: Bacteria Urine None Seen
[2019-09-16 18:06] LABS: Appearance Urine UA CLEAR; Bilirubin Urine UA NEGATIVE (NEGATIVE); Color Urine UA YELLOW; Glucose Urine UA NEGATIVE (Negative); Ketones Urine UA TRACE (NEGATIVE); Leukocyte Esterase Urine UA NEGATIVE (NEGATIVE); Nitrite Urine UA NEGATIVE (Negative); Occult Blood Urine UA 3+ (Negative); Protein Urine UA NEGATIVE (Negative); Specific Gravity Urine UA <=1.005 (1.000-1.035); Urobilinogen Urine UA 0.2 E.U./dL (0.2)
[2019-09-16 18:46] LABS: Culture Indicated Urine Cult Not Indicated; RBC Urine 1-5/HPF (0-5/HPF); Squamous Epithelial Cell Urine 0-1 /HPF (0-5/HPF); WBC Urine 0-1/HPF (0-5/HPF)
[2019-09-17] VITALS: BP 108/53; PULSE 97; RESP 16; TEMP 37.5; O2SAT 96
[2019-09-17] MEDS: SODIUM CHLORIDE 0.9% 1,000 ML 75 ML IV (00:05)
[2019-09-17] MEDS: HYDROCODONE/ACET 5/325 TABLET 1 TAB PO ×2 (02:51→09:21)
[2019-09-17 04:00] VITALS: BP 119/69; PULSE 115; RESP 14; TEMP 37.6; O2SAT 95
[2019-09-17] MEDS: PANTOPRAZOLE 40 MG TABLET PO (06:07)
[2019-09-17 07:18] LABS: Hematocrit 32.2 % (36-46); Hemoglobin 10.7 g/dL (12.0-16.0); Mean Corpuscular HGB Conc 33.2 % (30-36); Mean Corpuscular Hemoglobin 31.9 PG (26-34); Mean Corpuscular Volume 96.2 fL (80-100); Platelet Count 286 X10^3/uL (150-400); Red Blood Cell Count 3.35 X10^6/uL (4.0-5.2); Red Cell Distribution Width 15.8 % (11.6-14.8); White Blood Cell Count 27.7 X10^3/uL (4.5-11.0)
[2019-09-17 07:27] LABS: Add Manual Diff / Slide Review YES
[2019-09-17 07:30] LABS: Blood Urea Nitrogen 4 mg/dL (7-17); Calcium 8.3 mg/dL (8.4-10.2); Carbon Dioxide 26 mmol/L (22-32); Chloride 96 mmol/L (98-107); Estimated Glomerular Filt Rate > 60.0 mL/min (>60); Glucose 110 mg/dL (80-110); HEMOLYSIS < 15 (0-50); Potassium 3.2 mmol/L (3.4-5.1); Sodium 131 mmol/L (137-145)
[2019-09-17 07:44] LABS: Neutrophils Absolute Manual 23545 /uL (3000-5900); Total Cells Counted 100
[2019-09-17 07:45] LABS: Anisocytosis 1+
[2019-09-17 07:52] LABS: Procalcitonin 0.17 ng/mL (<0.5)
[2019-09-17 08:00] VITALS: BP 122/57; PULSE 109; RESP 15; TEMP 38.1; O2SAT 96
[2019-09-17] MEDS: ONDANSETRON 4 MG/2 ML INJ IV (08:18)
[2019-09-17] MEDS: HEPARIN 5,000 UNIT/ML VIAL 5000 UNIT SUBCUT (08:18)
[2019-09-17] MEDS: predniSONE 10 MG TABLET PO (09:21)
[2019-09-17] MEDS: POTASSIUM CHLORIDE 20 MEQ TAB 40 MEQ PO (09:23)
[2019-09-17] MEDS: SODIUM CHLORIDE 0.9% FLUSH 10 ML IV (09:23)
--- NOTE | 2019-09-17 09:27 | P.DS_ITS ---
History of Present Illness History of Present Illness Date Patient Seen: 09/17/19 Time Patient Seen: 09:27 Chief complaint: Flu Narrative: As per NIRMAL Chavez: Ms. Mariely Man is a 77-year-old female with a past medical history significant for rheumatoid arthritis on methotrexate and prednisone, gastroesophageal reflux, intermittent nausea who presents to the ER with shortness of breath. The patient reports 5-7 days worsening dyspnea developing a dry cough and fever and chills. The patient states she was seen by her PCP, Dr. Ennis, and was prescribed with guaifenesin with AC. The patient denies lightheadedness or dizziness, nasal congestion or sore throat. She endorses chest wall pain related to coughing. She reports no palpitations or pressure sensation. She reports no exertional dyspnea and denies wheezing. She has no abdominal pain but has a history of intermittent nausea for which she takes Zofran. She reports no changes in bowel or bladder habits. Upon arrival to the ER patient is afebrile with temperature of 102?, tachycardic at 123 beats per minute, blood pressure of 139/78, respirations of 20 saturating 99% on room air. Chest x-ray is obtained finding consolidation in the medial aspect of both lungs inferiorly right greater than left. EKG is obtained which finds no sinus tachycardia with a rate of 131 with PACs and right bundle-branch block. No evidence of ischemia or infarct. She has an elevated white count at 20 with a hemoglobin of 11.9 and hematocrit of 35.3 and platelets of 320. She has a PT of 11.7 with INR 1.0 and PTT of 31. She is mildly hyponatremic at 1:28 a.m. with a potassium of 3.6. Her BUN is 8 with a creatinine is 0.5. Her nonfasting glucose is 109. Lactate is found to be 1.0 and has a procalcitonin 0.06. Respiratory panel is obtained which is negative. The patient is treated with albuterol nebs in the emergency department, Tylenol 1 g, Toradol 15 mg, no rmal saline 1 L bolus, Rocephin is given IV as well as azithromycin requested IV. The patient admitted to the medicine service with community-acquired pneumonia. Discharge Providers Provider Date of admission: 09/14/19 19:34 Discharge Date: 09/17/19 Primary care physician: Alen Ennis MD Consults: 09/14/19 22:33 Consult to Discharge Planning Routine Comment: 09/14/19 22:36 Consult to Respiratory Therapy Evaluate & Treat Comment: Physician Instructions: Evaluate and treat Discharge provider: Anil Quiroz DO Summary Hospital Course Discharge Diagnosis: 1. Community-acquired pneumonia, acute, present on admission, active, improved - 2. Rheumatoid arthritis, chronic, stable 3. Diarrhea, acute, resolved 4. Hyponatremia, acute on chronic, improved 5. Hypokalemia, acute 6. Gastroesophageal reflux disorder, chronic, stable. 7. severe acute on chronic protein calorie malnutrition Hospital Course: Ms. Mariely Man is a 77-year-old female with a past medical history significant for rheumatoid arthritis on methotrexate and prednisone, g astroesophageal reflux, intermittent nausea who presented to the ER with shortness of breath and was admitted for community-acquired pneumonia. 1. Community-acquired pneumonia, acute, present on admission, active. -in the setting of immunosuppression in given her chronic prednisone and methotrexate. She has a profound leukocytosis which is not improving. She developed likely antibiotic associated diarrhea with ceftriaxone and azithromycin. She was changed to Levaquin on hospital day 1. Her white blood cell count is rising however clinically she does appear to be improving symptomatically. She again had low-grade fever on the day of discharge but this is overall downtrending. She feels well enough to go home to complete antibiotic therapy. I advised her that if she has continued fevers or again feels ill to return to the emergency room. -patient with symptoms that have been progressive for 1 week, seen by her PCP and treated symptomatically -patient presented with a fever of 102, tachycardic at 123, resolved with fluid bolus, with stable blood pressures after. -chest x-ray revealed consolidation in the medial aspect of lungs inferiorly with right greater than left. -started on ceftriaxone and azithromycin, this was changed to Levaquin after developing diarrhea. Continue Levaquin 750 mg every 24 hours. She will complete a 7 day course at home of antibiotics. -Legionella and strep urine antigens pending -respiratory panel was negative -recommend follow-up with her primary care provider early next week to recheck her symptoms and leukocytosis. 2. Rheumatoid arthritis, chronic, stable -patient has been treated with methotrexate and prednisone, no changes were made to her medication regimen for rheumatoid arthritis or pain control. 3. Diarrhea, acute -likely secondary to antibiotic associated diarrhea. Started with ceftriaxone and azithromycin, and antibiotics were changed to Levaquin on hospital day 1 after she developed what is likely antibiotic associated diarrhea. GI panel was negative for infectious etiologies. She is eating much better today and is stable for discharge home. 4. Hyponatremia, acute on chronic, improved -sodium slightly improved to 131 today after IV fluids. She needs to continue adequate p.o. intake at home. 5. Hypokalemia, acute -secondary to GI losses. Recommend repeat evaluation as outpatient. Patient was given potassium supplementation on day of discharge. 6. Gastroesophageal reflux disorder, chronic, stable. -patient was given Reglan upon discharge, she will continue her home PPI. 7. severe acute on chronic PCM r/t intermittent nausea and reduced appetite from acute pneumonia aeb BMI 17.1 (severe for age), 19% unintentional wt loss in <1y, moderate losses in subcutaneous fat and muscle system wide, and pt reports being fatigued. -appreciate dietary consultation and recommendations. Time Spent with Patient Time spent: Greater than 30 minutes Exam Vital Signs (past 8 hours): - 09/17/19 04:00 09/17/19 08:00 Temperature 99.6 F 100.5 F H Pulse Rate 115 H 109 H Respiratory Rate 14 15 Blood Pressure 119/69 122/57 L Pulse Oximetry 95 96 Oxygen Delivery Method Room Air Oxygen Flow Rate 0 Narrative Exam Narrative: GENERAL APPEARANCE: well developed, thin elderly female. Appears fatigued but improved with better color today. HEENT: Normocephalic, PERRLA, conjunctiva clear, EOMs intact, no rhinorrhea, mucous membranes are moist and pink without lesions or exudate. NECK/THYROID: neck supple, no JVD, no thyromegaly, trachea midline. LYMPH NODES: no cervical or supraclavicular lymphadenopathy. SKIN: [place], warm and dry, no visible lesions, rashes. HEART: irregularly irregular with normal rate, S1-S2, no murmur, no rubs or gallops, brisk capillary refill, no edema LUNGS: Clear bilateral upper lobes, right lower lobe rales slightly improved, no coarseness or wheezing, non productive cough during exam. CHEST: Symmetrical movement, no accessory muscle use. ABDOMEN: Soft, no distention, no abdominal tenderness, no guarding or peritoneal signs, no organomegaly, no flank or suprapubic tenderness, active bowel tones. EXTREMITIES: moves all extremities, strength is 5/5 and symmetrical, no deformities or joint effusions. NEUROLOGIC: AAO x person place and time, no focal neurologic deficits, sensation intact to light touch, hearing grossly normal to speech. PSYCH: cooperative, appropriate with stable behavior Objective Labs Result Diagrams: 09/17/19 06:54 09/17/19 06:54 Labs: Laboratory Results - last 24 hr 09/16/19 09/16/19 09/17/19 09:30 17:50 06:54 WBC 27.7 H RBC 3.35 L Hgb 10.7 L Hct 32.2 L MCV 96.2 MCH 31.9 MCHC 33.2 RDW 15.8 H Plt Count 286 Neut % (Auto) Not Reportable Lymph % (Auto) Not Reportable [place] % (Auto) Not Reportable Eos % (Auto) Not Reportable Baso % (Auto) Not Reportable Lymph # (Auto) Not Reportable [place] # (Auto) Not Reportable Baso # (Auto) Not Reportable Total Counted 100 Seg Neutrophils % 84.0 H Band Neutrophils % 1.0 L Lymphocytes % (Manual) 7.0 L Monocytes % (Manual) 8.0 Neutrophils # (Manual) 09977 H RBC Morphology See below Anisocytosis 1+ H Sodium Potassium Chloride Carbon Dioxide BUN Creatinine Estimated GFR BUN/Creatinine Ratio Glucose Calcium Procalcitonin Urine Color Yellow Urine Appearance Clear Urine pH 7.0 Ur Specific [place] <=1.005 Urine Protein Negative Urine Glucose (UA) Negative Urine Ketones Trace H Urine Occult Blood 3+ H Urine Nitrate Negative Urine Bilirubin Negative Urine Urobilinogen 0.2 Ur Leukocyte Esterase Negative Urine RBC 1-5/hpf Urine WBC 0-1/hpf Ur Squamous Epith Cells 0-1 /hpf Urine Bacteria None seen Ur Culture Indicated? Cult not indicated Stl C. cayetanensis PCR Not detected Stool Rotavirus (PCR) Not detected Stool Adenovirus (PCR) Not detected Stool Astrovirus (PCR) Not detected Stool Cryptosporidium PCR Not detected Stl E.coli Shiga Tox PCR Not detected St Sh/Enteroin Ecoli PCR Not detected Stool E coli O157 PCR Not Reportable Stl Enterotoxigenic E PCR Not detected Stool EPEC (PCR) Not detected Stl E. histolytica PCR Not detected Stool Giardia Lamblia PCR Not detected Stool Sapovirus (PCR) Not detected Stl P. shigelloides PCR Not detected St Y.enterocolitica PCR Not detected Stool Vibrio (PCR) Not detected Stl Vibrio cholerae PCR Not detected Stl Enteroaggr Ecoli PCR Not detected Stl Norovirus GI/GII PCR Not detected Campylobacter (PCR) Not detected C. difficile Tox (PCR) Not detected Salmonella (PCR) Not detected 09/17/19 09/17/19 06:54 06:54 WBC RBC Hgb Hct MCV MCH MCHC RDW Plt Count Neut % (Auto) Lymph % (Auto) [place] % (Auto) Eos % (Auto) Baso % (Auto) Lymph # (Auto) [place] # (Auto) Baso # (Auto) Total Counted Seg Neutrophils % Band Neutrophils % Lymphocytes % (Manual) Monocytes % (Manual) Neutrophils # (Manual) RBC Morphology Anisocytosis Sodium 131 L Potassium 3.2 L Chloride 96 L Carbon Dioxide 26 BUN 4 L Creatinine 0.40 L Estimated GFR > 60.0 BUN/Creatinine Ratio 10.0 Glucose 110 Calcium 8.3 L Procalcitonin 0.17 Urine Color Urine Appearance Urine pH Ur Specific [place] Urine Protein Urine Glucose (UA) Urine Ketones Urine Occult Blood Urine Nitrate Urine Bilirubin Urine Urobilinogen Ur Leukocyte Esterase Urine RBC Urine WBC Ur Squamous Epith Cells Urine Bacteria Ur Culture Indicated? Stl C. cayetanensis PCR Stool Rotavirus (PCR) Stool Adenovirus (PCR) Stool Astrovirus (PCR) Stool Cryptosporidium PCR Stl E.coli Shiga Tox PCR St Sh/Enteroin Ecoli PCR Stool E coli O157 PCR Stl Enterotoxigenic E PCR Stool EPEC (PCR) Stl E. histolytica PCR Stool Giardia Lamblia PCR Stool Sapovirus (PCR) Stl P. shigelloides PCR St Y.enterocolitica PCR Stool Vibrio (PCR) Stl Vibrio cholerae PCR Stl Enteroaggr Ecoli PCR Stl Norovirus GI/GII PCR Campylobacter (PCR) C. difficile Tox (PCR) Salmonella (PCR) Discharge Plan Discharge Plan Patient Disposition: Home Discharge comment: You were admitted to the hospital with pneumonia. After starting antibiotics you developed nausea and loose stools. You were checked for an infectious cause but none was found. You improved after changing your antibiotics. Your sodium and potassium were slightly low as well because of your decreased intake. Try and eat as much as possible at home over the next few days until you are feeling improved. You are being discharged home to complete a 7 day total course of antibiotics. You should try and follow up with your primary care provider early next week to recheck your blood counts and electrolytes. Discharge orders & Medications Prescriptions: New prednisone 10 mg Tablet 10 mg PO DAILY 30 Days RF: 0 guaifenesin [Mucus Relief ER] 600 mg Tablet Extended Release 12hr 600 mg PO Q12HR PRN (Reason: Cough) 7 Days Qty: 14 RF: 0 levofloxacin 750 mg tablet 750 mg PO DAILY 4 Days Qty: 4 RF: 0 metoclopramide HCl 5 mg tablet,disintegrating 5 mg PO TID PRN (Reason: nausea and vomiting) 7 Days Qty: 20 RF: 0 Continued methotrexate sodium 25 mg/mL solution 0.8 ml IM QWEEK RF: 0 omeprazole 40 mg capsule,delayed release(DR/EC) 40 mg PO DAILY RF: 0 spironolactone 50 mg tablet 100 mg PO QAM RF: 0 nystatin 100,000 unit/gram Ointment 1 applic TOPICAL BID RF: 0 nitrofurantoin macrocrystal 100 mg Capsule 100 mg PO Q OTHER DAY RF: 0 ondansetron 4 mg Tablet,Disintegrating 4 mg PO Q4H PRN (Reason: Nausea) RF: 0 hydrocodone-acetaminophen 5-325 mg Tablet 0.5 tab PO Q6H PRN (Reason: Breakthrough Pain only) Qty: 30 RF: 0 hydrocodone-acetaminophen 10-325 mg Tablet 1 tab PO Q4H PRN (Reason: Back Pain) Qty: 60 RF: 0 alendronate 70 mg tablet 70 mg PO QWEEK Qty: 4 RF: 0 Follow up/Referrals: Alen Ennis MD [Primary Care Provider] - 09/21/19 2:20 pm (appt:09/21 @2:20 check in for appointment with dr ennis ) Discharge Health Status Health Concerns: Community acquired pneumonia Diet/Activity/Treatments Diet: Diet as Tolerated Diet comment: Stick with a bland diet initially, increase as tolerated Activity: As tolerated Visit Report/Discharge Packet Instructions: DI for Pneumonia -- Adult Discharge Data Primary Care Provider: Alen Ennis Quality VTE Deep Vein Thrombosis/Pulmonary Embolism Present on Admission: No
--- NOTE | 2019-09-17 10:49 | PC.NURSE ---
Patient having some nausea this morning, given iv ondasterone and helpful. Then waited for about 45 minutes and gave her oral medications and 1 vicodin for complaints of 8/10 pain, she states improvement. is discharging patient today. She will be going home around 1100.
[2019-09-18 18:10] LABS: Strep pneumoniae Ag, Urine NOT DETECTED
== END 2019-09-17 11:50 | disposition home or self-care (01) | DRG 193 ==
LOC: ED 19:10 → AC 19:35
PROVIDERS: Internal Medicine; Admitting Provider Nurse Practitioner Adult Health; Emergency Provider Nurse Practitioner Family; PCP Internal Medicine; Visit Provider Nurse Practitioner Adult Health
DX: J18.9 Pneumonia, unspecified organism (principal); E43 Unspecified severe protein-calorie malnutrition; E87.1 Hypo-osmolality and hyponatremia; K52.1 Toxic gastroenteritis and colitis; Z68.1 Body mass index [BMI] 19.9 or less, adult; T36.1X5A Adverse effect of cephalosporins and other beta-lactam antibiotics, initial encounter; T36.3X5A Adverse effect of macrolides, initial encounter; E87.6 Hypokalemia; K21.9 Gastro-esophageal reflux disease without esophagitis; G89.29 Other chronic pain; M06.9 Rheumatoid arthritis, unspecified; Z79.899 Other long term (current) drug therapy; Z79.52 Long term (current) use of systemic steroids
CPT/HCPCS: 36415; 71045; 80048; 80053; 81001; 83605; 83690; 83735; 84145; 85025; 85610; 85730; 87040; 87449; 87507; 87633; 93005; 94640; 94667; 94668; 94760; 94762; 96361; 96365; 96367; 96375; 99284; J1644; J1885; J1956; J2405

== ENCOUNTER → 2019-09-22 09:17 | Outpatient (CLI) | payer MEDICARE, OTHER, SELFPAY ==
[2019-09-14 22:45] VITALS: BMI 42.0
--- NOTE | 2019-09-22 | DI.US.S_ITS ---
PROCEDURE: US ABDOMEN LIMITED INDICATIONS: NAUSEA WITH VOMITING, UNSPECIFIED TECHNIQUE: Real-time focused scanning was performed of the abdomen, with image documentation. COMPARISON: None. FINDINGS: Quality of visualization of the liver parenchyma is somewhat limited due to bowel gas being interposed between the liver dome and the diaphragm. The gallbladder appears normal common bile ducts are not distended. The pancreas is relatively poorly seen due to bowel gas.. IMPRESSION: Limited evaluation of the abdomen and retroperitoneum, due to bowel gas as noted above. Followup by CT scanning may become necessary. Dictated by: Oliver Staton M.D. on 09/22/2019 at 10:57 Approved by: Oliver Staton M.D. on 09/22/2019 at 10:59
== END ==
PROVIDERS: PCP Internal Medicine; Visit Provider Internal Medicine
DX: R11.2 Nausea with vomiting, unspecified (principal)
CPT/HCPCS: 76705

== ENCOUNTER 2019-10-27 21:57 | Inpatient (IN) | payer MEDICARE, OTHER, SELFPAY ==
[2019-09-14 22:45] VITALS: BMI 42.0
[2019-10-27 22:05] VITALS: BP 145/71; PULSE 85; RESP 15; TEMP 36.8; O2SAT 98; BMI 17.1
--- NOTE | 2019-10-27 22:32 | DI.CT.S_ITS ---
PROCEDURE: CT PEL WO CON INDICATIONS: fall with severe pain TECHNIQUE: Noncontrast 3 mm axial sections acquired through the bony pelvis, with coronal and sagittal reformatting. COMPARISON: [facility], CT, ABDOMEN/PELVIS WITH CONTRAST, 03/22/2014, 10:58. [facility], CT, CT LUMBAR SPINE WO CON, 10/27/2019, 23:07. FINDINGS: Image quality: Excellent. Bones: Intact left hip hemiarthroplasty with no evidence of hardware failure or loosening. 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 Healing subacute to chronic left ischial fracture. Sclerosis along the medial left iliac bone adjacent to the SI joint likely represents an insufficiency fracture that occurred at the time of pubic and ischial fractures. No acute fractures identified. No dislocations. Soft tissues: Atherosclerosis. No hematomas. No free pelvic fluid. No pelvic abscess. Remote hysterectomy. IMPRESSION: 1. Intact left hip prosthesis. 2. Old nonunited mildly displaced left symphysis pubis fracture, healing left ischial bone fracture. 3. Sclerosis along the medial left iliac bone adjacent to the SI joint likely represents an insufficiency fracture that occurred at the time of pubic fractures. 4. No evidence acute fracture or dislocation. Comment: Final report is concordant with preliminary interpretation provided by [facility]. Dictated by: Alcon Neal M.D. on 10/28/2019 at 7:58 Approved by: Alcon Neal M.D. on 10/28/2019 at 8:05
--- NOTE | 2019-10-27 22:32 | DI.CT.S_ITS ---
PROCEDURE: CT LUMBAR SPINE WO CON INDICATIONS: fall with severe pain TECHNIQUE: Noncontrast 3 mm thick sections acquired from the T12 level to the sacrum. Sagittal and coronal reformats were constructed. For radiation dose reduction, the following was used: automated exposure control. COMPARISON: [facility], , L-SPINE 2-3 VIEWS, 09/26/2014, 10:59. FINDINGS: Image quality: Excellent. Bones: There is grade I L4-L5 and grade II L5-S1 degenerative anterolisthesis. Convex left lumbar spine scoliosis is stable. Acute L2 compression fracture is noted. Chronic L3 compression fracture noted which is not significantly changed compared to 09/16/2014. There is disruption of the posterior cortex of the L2 vertebral body indicating burst type compression fracture. The L2 compression fracture results in approximately 40% loss of normal vertebral body height. The L3 compression fracture results in approximately 50-60% loss of normal vertebral body height. Mildly retropulsed fragment associated with the L2 burst type compression fracture causes mild narrowing of the central canal. No suspicious lytic or blastic bony lesions. No pars defects. Severe L4-L5 and L5-S1 degenerative disc changes. Moderate to severe bilateral L4-L5 and L5-S1 facet arthropathy. Left hip arthroplasty. Soft tissues: No retroperitoneal masses or hematomas. Visualized aorta is normal in caliber. IMPRESSION: 1. Acute L2 compression fracture. 2. Chronic L3 compression fracture. Dictated by: Sheri Morales MD, PhD on 10/28/2019 at 8:23 Approved by: Sheri Morales MD, PhD on 10/28/2019 at 8:29
[2019-10-27] MEDS: HYDROCODONE/ACET 5/325 TABLET 2 TAB PO (22:42)
--- NOTE | 2019-10-27 22:42 | ED_ITS ---
HPI - Fall General Chief Complaint: Fall Stated Complaint: GLF Time Seen by Provider: 10/27/19 22:42 Source: patient and EMS Mode of arrival: EMS History of Present Illness HPI Narrative: 79-year-old female nonsmoker of rheumatoid arthritis and GERD presents with a chief complaint of severe lumbar and sacral pain after a fall this evening. She was in her normal state of health and denies any prodromal symptoms, stating she tripped over something on the ground and fell onto her lower back. She now has significant pain with any motion. She denies any numbness, tingling or weakness. She denies any loss of control of bowel or bladder. Her pain is worse when she moves and improves with rest. She denies any head neck pain. She denies any chest pain, abdominal pain or extremity pain. MD complaint: fall Onset (ago): minute(s) Fall from: standing Fall witnessed: no Place fall occurred: home Loss of consciousness: none Prolonged down time: no Context: tripped/slipped Location of injury: back Severity: mild Quality: aching Associated symptoms (after fall): denies Related Data Home Medications Medication Instructions Recorded Confirmed methotrexate sodium 0.8 ml IM QWEEK 09/29/18 09/15/19 nitrofurantoin macrocrystal 100 mg PO Q OTHER DAY 09/29/18 09/15/19 nystatin 1 applic TOPICAL BID 09/29/18 09/15/19 omeprazole 40 mg PO DAILY 09/29/18 09/15/19 ondansetron 4 mg PO Q4H PRN 09/29/18 09/15/19 spironolactone 100 mg PO QAM 09/29/18 09/15/19 Previous Rx's Medication Instructions Recorded alendronate 70 mg PO QWEEK #4 tab 10/04/18 hydrocodone-acetaminophen 0.5 tab PO Q6H PRN #30 tab 10/04/18 hydrocodone-acetaminophen 1 tab PO Q4H PRN #60 tab 10/04/18 prednisone 10 mg PO DAILY 30 Days tab 09/17/19 Allergies Allergy/AdvReac Type Severity Reaction Status Date / Time morphine AdvReac Severe Vomiting Verified 10/02/18 07:51 meperidine [MEPERIDINE] AdvReac Unknown VOMITING Verified 10/02/18 07:51 oxycodone [OXYCODONE] AdvReac Unknown NAUSEA Verified 09/29/18 13:53 Review of Systems Constitutional Constitutional: Denies chills, Denies fatigue, Denies fever(s), Denies frequent falls, Denies lethargy and Denies weakness Eyes Eyes: Denies change in vision, Denies eye discharge, Denies irritation and Denies loss of vision ENT Ears, Nose, Mouth, and Throat: Denies change in voice, Denies dizziness, Denies neck pain, Denies sore throat and Denies throat swelling Cardiovascular Cardiovascular: Denies chest pain, Denies irregular heart rhythm, Denies lightheadedness, Denies palpitations, Denies dyspnea, Denies dyspnea on exertion and Denies orthopnea Respiratory Respiratory: Denies cough, Denies dyspnea, Denies dyspnea on exertion and Denies wheezing Gastrointestinal Gastrointestinal: Denies abdominal pain, Denies change in bowel habits, Denies diarrhea, Denies nausea and Denies vomiting Genitourinary Genitourinary: Denies hematuria, Denies flank pain, Denies urinary incontinence and Denies urinary urgency Musculoskeletal Musculoskeletal: Reports back pain, Denies muscle weakness, Denies neck pain, Denies numbness and Denies tingling Integumentary/Breasts Skin/Breast: Denies pruritus, Denies erythema, Denies rash and Denies wounds Neurologic Neurologic: Denies behavioral changes, Denies confusion, Denies dizziness, Denies frequent falls, Denies loss of vision, Denies numbness, Denies tingling and Denies weakness Psychiatric Psychiatric: Denies anxiety, Denies behavioral changes, Denies confusion, Denies depression, Denies homicidal ideation and Denies suicidal ideation Endocrine Endocrine: Denies fatigue, Denies flushing and Denies palpitations Hematologic/Lymphatic Hematologic/Lymphatic: Denies easy bruising Allergic/Immunologic Allergic/Immunologic: Denies urticaria, Denies throat swelling and Denies wheezing Patient History Medical History GERD (gastroesophageal reflux disease) (Acute) Peripheral edema (Acute) Rheumatoid arthritis (Acute) Surgical History History of hand surgery (Acute) History of total left knee replacement (Acute) History of total right knee replacement (Acute) Status post total hip replacement, left (Acute) Status post wrist surgery (Acute) Family History Mother No problems noted. Father No problems noted. Social History household members: spouse Smoking Status: Never smoker alcohol intake: current Smoking Status: Never smoker Substance Use Type: does not use Exam Narrative Exam Narrative: GENERAL: [79] year old patient appears stated age. Thin, GCS 15, alert and oriented, obviously in pain and complaining of her lower back HEAD: Atraumatic. Normocephalic. EYES: Pupils equal round and reactive. Extraocular motions intact. No scleral icterus. No injection or drainage. ENT: Nose without bleeding, purulent drainage. Throat without erythema, tonsillar hypertrophy or exudate. Airway patent. NECK: Trachea midline. Non tender CARDIOVASCULAR: Regular rate and rhythm without murmurs, gallops, or rubs. RESPIRATORY: Clear to auscultation. Breath sounds equal bilaterally. No wheezes, rales, or rhonchi. GASTROINTESTINAL: Abdomen soft, non-tender, nondistended. EXTREMITIES: No edema or joint tenderness. BACK: Midline tenderness mid to lower lumbar, no obvious deformity, step-off or crepitance. Additional tenderness to palpation of midline sacrum NEURO: AOx3. SKIN: No rash or erythema of visible areas Initial Vital Signs Initial Vital Signs: Vital Signs Temperature 98.3 F 10/27/19 22:05 Pulse Rate 85 10/27/19 22:05 Respiratory Rate 15 10/27/19 22:05 Blood Pressure 145/71 H 10/27/19 22:05 Pulse Oximetry 98 10/27/19 22:05 Course Orders Ordered: ED Orders 10/27/19 22:32 CT lumbar spine wo con Stat CT pelvis wo con Stat 10/28/19 00:20 Basic Metabolic Panel Stat Complete Blood Count AUTO DIFF Stat Hydrocodone Bitart/Acetaminophen ([place] 5/325) 1 tab PO Q4HR PRN PRN Reason: Pain, Moderate (4-6) Discontinued Medications Hydrocodone Bitart/Acetaminophen ([place] 5/325) 2 tab PO NOW ONE Stop: 10/27/19 22:38 Last Admin: 10/27/19 22:42 Dose: 2 tab Documented by: MMCFARL Hydromorphone HCl (Dilaudid) 0.25 mg IV NOW ONE Stop: 10/28/19 00:49 Last Admin: 10/28/19 00:52 Dose: 0.25 mg Documented by: RAMONA Ondansetron HCl (Zofran) 4 mg IV NOW ONE Stop: 10/28/19 00:10 Last Admin: 10/28/19 00:12 Dose: 4 mg Documented by: RAMONA Reevaluation(s) Reevaluation #1: Attempt to ambulate patient but she is unable to sit up due to the pain, let alone ambulate safely. Consultations Consultation #1: Discussion with on-call orthopedist, antonio for discharge of patient can safely ambulate, may need kyphoplasty but can arrange for outpatient follow-up Consultation #2: Hospitalist contacted upon failed ambulation trial Vital Signs Vital signs: Vital Signs - 8 hr 10/27/19 22:05 Temperature 98.3 F Pulse Rate 85 Respiratory Rate 15 Blood Pressure 145/71 H Pulse Oximetry 98 MDM - Fall Lab Data Result diagrams: 10/28/19 00:20 10/28/19 00:[address] Lumbar / Pelvis: Radiologist's Impression: No pelvic fracture Acute L2 vertebral body fracture MDM Narrative Medical decision making narrative: Patient without prodromal symptoms tripped and fell injuring her back. CT notes acute L2 fracture with retropulsion and moderate canal narrowing. Patient has no neurologic symptoms such as numbness, tingling, decreased reflexes, saddle anesthesia or other. Patient was unable to ambulate safely and will require hospitalization for pain control, evaluation by PT and possible rehab Discharge Plan Departure Patient Disposition: Admitted as Observation Clinical Impression: Closed lumbar vertebral fracture Qualifiers: Encounter type: initial encounter Lumbar vertebra fracture level: L2 Fracture morphology: other fracture Qualified Code(s): S32.028A - Other fracture of second lumbar vertebra, initial encounter for closed fracture Discharge Date/Time: 10/28/19 01:00 Admit Date/Time: 10/28/19 00:12 Admit Provider: Brian Desouza
[2019-10-28] VITALS (8 sets, daily range): BP systolic 109–156; BP diastolic 49–79; PULSE 76–91; RESP 15–20; TEMP 35.7–37.2; O2SAT 95–99; BMI 17.5
[2019-10-28] MEDS: ONDANSETRON 4 MG/2 ML INJ IV ×4 (00:12→17:58)
--- NOTE | 2019-10-28 00:15 | PC.NURSE ---
attempted to ambulate patient. She was able to partially sit up and swing one leg over the edge of the bed but nothing further. RN and provider are aware.
[2019-10-28 00:31] LABS: Add Manual Diff / Slide Review NO; Basophils Absolute Auto 0 /uL (0-100); Basophils Percent Auto 0.3 % (0-2); Eosinophils Absolute Auto 100 /uL (0-450); Eosinophils Percent Auto 0.6 % (2-4); Hematocrit 35.1 % (36-46); Hemoglobin 11.6 g/dL (12.0-16.0); Lymphocytes Absolute Auto 2100 /uL (1100-4500); Lymphocytes Percent Auto 13.7 % (25-40); Mean Corpuscular HGB Conc 33.1 % (30-36); Mean Corpuscular Hemoglobin 31.5 PG (26-34); Mean Corpuscular Volume 95.1 fL (80-100); Monocytes Absolute Auto 600 /uL (0-900); Monocytes Percent Auto 4.1 % (3-14); Neutrophils Absolute Auto 12700 /uL (1500-7000); Neutrophils Percent Auto 81.3 % (50-75); Platelet Count 322 X10^3/uL (150-400); Red Blood Cell Count 3.69 X10^6/uL (4.0-5.2); White Blood Cell Count 15.7 X10^3/uL (4.5-11.0)
[2019-10-28 00:39] LABS: Blood Urea Nitrogen 12 mg/dL (7-17); Calcium 8.8 mg/dL (8.4-10.2); Carbon Dioxide 29 mmol/L (22-32); Chloride 96 mmol/L (98-107); Estimated Glomerular Filt Rate > 60.0 mL/min (>60); Glucose 103 mg/dL (80-110); HEMOLYSIS < 15 (0-50); Sodium 131 mmol/L (137-145)
[2019-10-28] MEDS: HYDROMORPHONE 0.5 MG INJ 0.25 MG IV (00:52)
[2019-10-28] MEDS: HYDROCODONE/ACET 5/325 TABLET 1 TAB PO ×3 (03:08→21:35)
--- NOTE | 2019-10-28 04:08 | PC.ADMIT ---
Addendum entered by Marya Presley R.N. 10/28/19 07:01: Medicated with Vicodin for 6/10 back pain. Addendum entered by Marya Presley R.N. 10/28/19 06:01: 0510 ACID MAKER reports patient had approximately 25cc emesis so medicated with Zofran. Also states pain was better and able to sleep briefly after Vicodin but pain is getting more severe again; medicated with IV Dilaudid. Original Note: Patient admitted at 0125 to room 216 per stretcher from ER. Transferred into bed with use of slider board. Initially stating pain is 10/10 but after reviewing pain scale with patient she states pain is 6/10 and located in lower back. Patient is alert and oriented. Breath sounds CTA with RA sat of 97%. HRR. Denies nausea although did have nausea while in ER and was medicated with Zofran. BT present and states she is passing flatus. States she is continent of urine and denies dysuria, frequency or urgency. Not wanting to move in bed due to the pain. Has rheumatoid arthritis so has bilateral hand deformity but states she is able to do all ADL's. Has bruising noted on left elbow, left 2nd toe and lateral aspect of right foot. Spider veins noted on bilateral ankles/feet. Has callous area to plantar surface of foot below left great toe. Buttocks lightly pink but without breakdown. Oriented to call light and bed controls. Per NIRMAL Torres, attempted to place calf SCD's but patient declined to have them put on despite information re: DVT prevention. Fall risk score is high as fell prior to arrival in ER; bed alarm is activated At 0308 patient requested pain med and was medicated with Vicodin. Assisted onto bedpan and able to void 150cc dark nanette urine. [address] Admission Note: The patient,Mariely Man,79 y/o, was given written information regarding hospital policies, unit procedures and contact persons. Patient's smoking status: Never smoker. Vital Signs - 8 hr 10/27/19 22:05 10/28/19 01:00 10/28/19 01:50 Temperature 98.3 F 98.1 F Pulse Rate 85 83 91 H Respiratory Rate 15 15 18 Blood Pressure 145/71 H 144/70 H 122/49 L Pulse Oximetry 98 98 97
--- NOTE | 2019-10-28 04:26 | PM.HP.1 ---
History of Present Illness History of Present Illness Date Patient Seen: 10/28/19 Time Patient Seen: 04:26 Chief complaint: GLF Narrative: The patient is an 79-year-old female with PMH of RA, recurrent UTIs (on prophylactic ABX), osteoporosis, PUD with prior h/o GIB, chronic anemia, compression fracture, prior tobacco dependence (20 PYH, quit 1979). Patient presented to the ED on 10/27/2019 out of concern for severe lumbar and sacral pain. Pain was a sequela of a ground level fall. Patient has tripped over her own feet and landed on the ground with impact to lower back. Reports onset of pain immediately to site of injury. Patient denies injury to the head. She denies loss of consciousness. There was no associated loss of bowel or bladder control. Fall was not preceded by dizziness or lightheadedness. Patient does mention that she typically runs low BP. Patient was unable to get up by herself. Her was near and lifted her off the ground. Patient describes pain as moderate to severe. It is exacerbated with movement and relieved with rest. Patient is known to have been hospitalized 09/14 to 09/17 for community-acquired pneumonia. Review of records notes patient developing ABX associated diarrhea, however patient herself denies presence of diarrhea, nausea, or vomiting. Initial labs remarkable for hypovolemia and leukocytosis. No fever or chills. ED Presentation & Work-Up BP mildly elevated, otherwise stable VS trend. Labs, 08/27 0020 WBC 15.7 Hgb 11.6 Hct 35.1 Plt 322 Na 131 K 4.0 Cl 96 Ca 8.8 Glu 103 CO2 29 BUN 12 Cr 0.6 BUN:Cr 20 CT lumbar spine. Acute L2 vertebral body fracture and L3 compression fracture (likely old). CT pelvis wo contrast. No acute fracture seen. Old fractures of the left pubic rami extending to the pubic body. Possible old trauma Patient History Medical History GERD (gastroesophageal reflux disease) (Acute) Peripheral edema (Acute) Rheumatoid arthritis (Acute) Surgical History History of hand surgery (Acute) History of total left knee replacement (Acute) History of total right knee replacement (Acute) Status post total hip replacement, left (Acute) Status post wrist surgery (Acute) Family & Social History Family History Mother No problems noted. Father No problems noted. Social History: household members spouse Prior Living Arrangements House Safety & Behavioral: Feels Safe in Current Yes Environment Been Physically Hurt or No Threatened By a Person Suicidal Ideation Description None Tobacco & Substance use: Smoking Status Former smoker alcohol intake current alcohol intake frequency holiday/special occasion Substance Use Type does not use Meds Home Medications and Allergies Home Medications Medication Instructions Recorded Confirmed Type methotrexate sodium 0.8 ml IM QWEEK 09/29/18 09/15/19 History nitrofurantoin macrocrystal 100 mg PO Q OTHER DAY 09/29/18 09/15/19 History nystatin 1 applic TOPICAL BID 09/29/18 09/15/19 History omeprazole 40 mg PO DAILY 09/29/18 09/15/19 History ondansetron 4 mg PO Q4H PRN 09/29/18 09/15/19 History spironolactone 100 mg PO QAM 09/29/18 09/15/19 History alendronate 70 mg PO QWEEK #4 tab 10/04/18 09/15/19 Rx hydrocodone-acetaminophen 0.5 tab PO Q6H PRN #30 tab 10/04/18 09/15/19 Rx hydrocodone-acetaminophen 1 tab PO Q4H PRN #60 tab 10/04/18 09/15/19 Rx prednisone 10 mg PO DAILY 30 Days tab 09/17/19 Rx Allergies Allergy/AdvReac Type Severity Reaction Status Date / Time morphine AdvReac Severe Vomiting Verified 10/02/18 07:51 meperidine [MEPERIDINE] AdvReac Unknown VOMITING Verified 10/02/18 07:51 oxycodone [OXYCODONE] AdvReac Unknown NAUSEA Verified 09/29/18 13:53 Review of Systems Review of Systems ROS: Yes All systems reviewed with the patient and are negative except as otherwise documented Exam Vital Signs (past 8 hours): - 10/27/19 22:05 10/28/19 01:00 10/28/19 01:50 Temperature 98.3 F 98.1 F Pulse Rate 85 83 91 H Respiratory Rate 15 15 18 Blood Pressure 145/71 H 144/70 H 122/49 L Pulse Oximetry 98 98 97 Oxygen Delivery Method Room Air Oxygen Flow Rate 0 Narrative Exam Narrative: Constitutional: NAD Neurologic: AOx3, no focal neurological deficits, no facial assymetry Head: NC, AT Eyes: PERRL, EOMI, Ears: external ears normal, no otorrhea Nose: external nose normal, no rhinorrhea or epistaxis Throat: dry MM, oropharynx w/o exudate Neck: no masses, lymphadenopathy, no JVD Chest / Respiratory: CTA, diminished bases, on RA, unlabored respiratory effort Heart / CV: S1S2 Abdomen / GI: round, NT, ND, + BS, no organomegaly : no suprapubic tenderness, no CVA Peripheral / Vascular: warm to touch, DP and PT pulses palpable, no edema Musc: back pain with b/l straight leg rise, sensation intact midline lower lumbar and paraspinous tenderness Skin: no ecchymosis or suspicious lesions / ulcers Objective Labs Result Diagrams: 10/28/19 00:20 10/28/19 00:20 Labs: Laboratory Results - last 24 hr 10/28/19 10/28/19 00:20 00:20 WBC 15.7 H RBC 3.69 L Hgb 11.6 L Hct 35.1 L MCV 95.1 MCH 31.5 MCHC 33.1 RDW 15.0 H Plt Count 322 Neut % (Auto) 81.3 H Lymph % (Auto) 13.7 L [place] % (Auto) 4.1 Eos % (Auto) 0.6 L Baso % (Auto) 0.3 Neut # (Auto) 68897 H Lymph # (Auto) 2100 [place] # (Auto) 600 Eos # (Auto) 100 Baso # (Auto) 0 Sodium 131 L Potassium 4.0 Chloride 96 L Carbon Dioxide 29 BUN 12 Creatinine 0.60 Estimated GFR > 60.0 BUN/Creatinine Ratio 20.0 Glucose 103 Calcium 8.8 Assessment & Plan Assessment & Plan narrative: Patient is admitted under observation status for an acute vertebral fracture and pain control Closed L2 vertebral fracture, acute, present on admission, active - Acute L2 vertebral body fracture and L3 compression fracture (likely old). - Consult orthopedic surgery - Bedrest overnight, advance activity as tolerated w/ PT - Postural reduction, limit bending and lifting - pain management - Consider TLSO brace for spine stabilization Back pain, acute on chronic, present on admission, active - Hydrocodone / APAP 5/325 Q4H prn - Dilaudid IV 0.5 Q4H PRN break through pain Acute hyponatremia, acute on chronic, present on admission, active - suspected to be in the setting of hypovolemia; she is also on spironolactone - gentle hydration - hold spironolactone for now Acute leukocytosis, present on admission, active - on chronic immunosuppression / steroids - check PCT and UA Rheumatoid arthritis, chronic condition, stable -resume PT regimen of methotrexate and prednisone GERD (h/o peptic ulcer disease and prior GIB), chronic condition, present on admission, stable - controlled, resume Full Code. Patient has a formal health directive. Designates spouse as a surrogate decision maker. Home medications reviewed and reconciled accordingly VTE prophylaxis: lovenox Quality VTE Deep Vein Thrombosis/Pulmonary Embolism Present on Admission: No
[2019-10-28] MEDS: SODIUM CHLORIDE 0.9% FLUSH 10 ML IV ×3 (05:02→14:50)
[2019-10-28] MEDS: HYDROMORPHONE 0.5 MG INJ IV ×5 (05:02→22:55)
[2019-10-28] MEDS: SODIUM CHLORIDE 0.9% 1,000 ML 50 ML IV (06:53)
[2019-10-28 07:41] LABS: Appearance Urine UA CLEAR; Bilirubin Urine UA NEGATIVE (NEGATIVE); Color Urine UA YELLOW; Glucose Urine UA NEGATIVE (Negative); Ketones Urine UA NEGATIVE (NEGATIVE); Leukocyte Esterase Urine UA NEGATIVE (NEGATIVE); Nitrite Urine UA NEGATIVE (Negative); Occult Blood Urine UA TRACE-INTACT (Negative); Protein Urine UA NEGATIVE (Negative); Urobilinogen Urine UA 0.2 E.U./dL (0.2)
[2019-10-28 07:46] LABS: pH Urine UA 7.5 (4.5-8.0)
[2019-10-28 07:48] LABS: RBC Urine 0-1/HPF (0-5/HPF); WBC Urine 0-1/HPF (0-5/HPF)
[2019-10-28 07:49] LABS: Bacteria Urine Occasional (0-1); Culture Indicated Urine Cult Not Indicated; Squamous Epithelial Cell Urine 0-1 /HPF (0-5/HPF)
[2019-10-28] MEDS: ENOXAPARIN 40 MG/0.4 ML SYRINGE SUBCUT (08:47)
[2019-10-28 08:54] LABS: Add Manual Diff / Slide Review NO; Basophils Absolute Auto 0 /uL (0-100); Basophils Percent Auto 0.3 % (0-2); Eosinophils Absolute Auto 0 /uL (0-450); Eosinophils Percent Auto 0.4 % (2-4); Hematocrit 32.7 % (36-46); Hemoglobin 11.1 g/dL (12.0-16.0); Lymphocytes Absolute Auto 1200 /uL (1100-4500); Lymphocytes Percent Auto 11.6 % (25-40); Mean Corpuscular HGB Conc 33.8 % (30-36); Mean Corpuscular Hemoglobin 32.4 PG (26-34); Mean Corpuscular Volume 95.8 fL (80-100); Monocytes Absolute Auto 600 /uL (0-900); Monocytes Percent Auto 5.6 % (3-14); Neutrophils Absolute Auto 8400 /uL (1500-7000); Neutrophils Percent Auto 82.1 % (50-75); Platelet Count 287 X10^3/uL (150-400); Red Blood Cell Count 3.41 X10^6/uL (4.0-5.2); Red Cell Distribution Width 14.9 % (11.6-14.8); White Blood Cell Count 10.2 X10^3/uL (4.5-11.0)
[2019-10-28 08:59] LABS: Blood Urea Nitrogen 10 mg/dL (7-17); Calcium 8.6 mg/dL (8.4-10.2); Carbon Dioxide 26 mmol/L (22-32); Chloride 95 mmol/L (98-107); Estimated Glomerular Filt Rate > 60.0 mL/min (>60); Glucose 95 mg/dL (80-110); HEMOLYSIS < 15 (0-50); Potassium 3.9 mmol/L (3.4-5.1); Sodium 129 mmol/L (137-145)
--- NOTE | 2019-10-28 09:01 | CM.DANOTE ---
Addendum entered by Heidi Couch LPN 10/28/19 09:19: Met with pt as planned: introduced self and role. Room white board updated. Pt confirms her living situation: uses a 4ww at baseline. She and her both manage the housework. He cooks, she cleans up. He does anything that might require detailed work with the hands the this includes the driving. Pt says she is able to manage her own medication as her [facility]: [facility] [place] gives her special bottles to use which she is able to open. Pt reports a pelvic frature after a fall about 2 years ago. At that time she went to [facility] under her Medicare snf benefit and then to home with husbands support and a couple weeks of PT. If snf is needed again she would hope to return there.. P: follow as POC unfolds for admission status clarification and PT recommendations. Original Note: Discharge Planning/Care Management DCP: assessment: case received, EMR reviewed and went to room with intent to meet pt. She was receiving care from MARIA FERNANDA Davila (assist onto bedpan). Will plan to return to continue the assessment process at bedside. Pt is an 79 year old female who admitted early this morning, just after midnight, to care of hospitalist team.H&P: NIRMAL Torres: reviewed. Pt is here with ground level fall: dx of acute L2 compression fracture in setting of long standing Rheumatoid Arthritis. On Methatrexate. Acute hyponatremia is noted by NIRMAL Torres. Orthopedic team has been consulted. Bedrest orders with PT to follow. ? of TLSO need. Paayer: Medicare and [facility] PCP: Dr. Whit Garsia Admission status: Per UR MARIA FERNANDA Her: in review. P: check in with pt as planned for discussion of d/c issues and options Discuss in Team Rounds.......? of OT involvement. Await UR determination re admission status as this will impact pt's d/c planning choices. CM Discharge Assessment Start: 10/28/19 08:58 Freq: Status: Active Protocol: Document 10/28/19 08:58 ITV (Rec: 10/28/19 09:01 ITV [id number]) Discharge Planning Assessment Advance Directives? Yes Advance Directives on File No History Provided By Medical Record Comment last admission to : 09/14-09/17 with a d/c to home setting and continuation of 's supportive care. Prior Living Arrangements House Household Members spouse Is patient alert and oriented? Yes Review Status In Process
[2019-10-28 10:02] LABS: Magnesium 1.7 mg/dL (1.6-2.3)
[2019-10-28 10:07] LABS: Procalcitonin < 0.05 ng/mL (<0.5)
--- NOTE | 2019-10-28 11:16 | PC.NURSE ---
Addendum entered by Lola Sainz R.N. 10/28/19 13:07: Pt stated pain decreased from 10/10 to 5/10. Repositioned onto right side, supported with pillow behind back and under LLE. Used MARCIAL bed tilt to the right as well. Pt felt nauseated after attempting to have broccoli and cheese soup, pt able to tolerate apple sauce and water. Other bland food items offered, pt does have crackers on bedside table. Pt repositioned onto back. PRN PO Dilaudid 2mg given at 1255 for pain management. Addendum entered by Lola Sainz R.N. 10/28/19 11:36: spoke with Dr. Quiroz again at 1125, pt nauseated, has emesis, tearing in 10/10. Vernal order one time dose of Dilaudid 1mg IV received. Zofran IV prn and Dilaudid 1mg X1 given at [id number]. Original Note: Day Shift- Spoke with Dr. Quiroz at 1115 regarding pt's pain 6-10/10 to lower back. Pt reported PRN 1 tab [place] not effective. Dilaudid IV PRN is effective. This narrative writer explained that pt needs to be on pill management for pain control as this will last longer and move towards discharge planning. Pt agreeable but states [place] not effective. Verbal order from Dr. Quiroz for Dilaudid 2mg po Q3hr PRN to try instead of [place].
--- NOTE | 2019-10-28 11:33 | PT-IP ANOTE ---
Physical therapy order received. Chart reviewed. Ortho consult is pending. Will hold eval until after Ortho consult and recommendations.
[2019-10-28] MEDS: HYDROMORPHONE 1 MG INJ IV (11:35)
[2019-10-28] MEDS: HYDROMORPHONE 2 MG TABLET PO ×3 (12:53→21:33)
--- NOTE | 2019-10-28 13:57 | DIET.PN ---
Dietary Progress Note Assessment: 79y F admitted for L2 closed fracture after GLF referred to nutrition for MNA at risk for malnutrition. Pt reports weight loss over the past year, has lost her appetite. Additionally, she has dental plate which makes chewing meat difficult. Pt has lost 17% body weight unintentionally over past year, this does not meet PCM criteria but BMI is very concerning at 17.5 for 79y patient. HT: 167.6cm WT: 49.3kg UBW: 59kg BMI: 17.5 Labs: Na 129 L MNA: 10 at risk Darn[place]: 18 Nutrition Diagnosis: weight loss r/t reduced appetite of unknown etiology aeb 17% wt loss in 1y, BMI 17.5 severe for age. Interventions: 1. Recc ONS Ensure Enlive c lunch to support PRO intake Diet Order: Heart Healthy EER: 1500kcal, 50g Pro (1g/kg), 1.8L fluids Monitoring/Evaluations: POs, weight, ONS tolerance
--- NOTE | 2019-10-28 16:30 | PT-IP ANOTE ---
Continuing to hold Physical Therapy evaluation pending Ortho consult and recommendations. Will follow-up tomorrow.
--- NOTE | 2019-10-28 22:31 | PC.NURSE ---
Assumed care of pt at 1500. Pt resting in bed during bedside hand-off. Ortho has not come for consult this shift. Pt will need ortho consult and P.T. eval prior to completing orthostatic vitals and mobilizing. Pt refusing to reposition for pressure injury prevention at times. States it hurt too much to roll over. Did allow minimal repositioning and use of bedpan. Medicating per mar for acute back pain.
[2019-10-29] VITALS (7 sets, daily range): BP systolic 124–145; BP diastolic 66–92; PULSE 79–111; RESP 16–18; TEMP 37–37.5; O2SAT 95–98
[2019-10-29] MEDS: HYDROMORPHONE 2 MG TABLET PO (01:31)
[2019-10-29] MEDS: CALCIUM CARBONATE 500 MG TAB PO ×2 (02:06→11:32)
--- NOTE | 2019-10-29 02:26 | PC.NURSE ---
C/O acid reflux, INSTRUMENT ASSEMBLERLilly Desouza notified ordered Tums 500 mg. tab. admin. Pain level still @ 6-7/10 after medicated with 2 mg. PO Dilaudid. States the pill does not helped that much, not like the IV Dilaudid. Will admin. IVP Dilaudid when it's the right time & monitor.
--- NOTE | 2019-10-29 03:25 | PC.NURSE ---
0300.Checked pt. to medicate with IV Dilaudid, but she's asleep & snoring lightly. Will monitor.
[2019-10-29] MEDS: HYDROMORPHONE 0.5 MG INJ IV ×4 (03:33→15:55)
[2019-10-29] MEDS: SODIUM CHLORIDE 0.9% 1,000 ML 50 ML IV ×2 (03:37→22:58)
[2019-10-29] MEDS: PANTOPRAZOLE 40 MG TABLET PO (04:03)
[2019-10-29] MEDS: HYDROCODONE/ACET 5/325 TABLET 1 TAB PO ×2 (05:32→09:12)
[2019-10-29] MEDS: MAG HYDROX/ALUM/SIMETH 30 ML UDC PO (05:47)
[2019-10-29] MEDS: ONDANSETRON 4 MG/2 ML INJ IV ×2 (08:39→17:34)
[2019-10-29] MEDS: ENOXAPARIN 40 MG/0.4 ML SYRINGE SUBCUT (09:13)
--- NOTE | 2019-10-29 09:15 | PT-IP ANOTE ---
Spoke to MARIA FERNANDA Davila and pt still has not had any ortho consult. She stated she will contact Dr. Richie LANDEROS regarding ortho consult. Continuing to hold Physical Therapy evaluation pending Ortho consult and recommendations
[2019-10-29] MEDS: HYDROCODONE/ACET 5/325 TABLET 2 TAB PO ×4 (10:01→22:57)
--- NOTE | 2019-10-29 10:13 | PC.NURSE ---
Addendum entered by Lola Sainz R.N. 10/29/19 13:59: Juany in pharmacy called at 1322, reported pepto-Bismol can increase concentration of Methotrexate. This was reported to Dr. Quiroz at 1400. Pt also stated that her is not home tomorrow if there is a possibility of discharge on Friday. Dr. Quiroz also aware and physician to follow. Scheduled Lidocaine patch placed to lower back. Addendum entered by Lola Sainz R.N. 10/29/19 12:34: At 1230, made Dr. Quiroz aware of pt's reported burning sensation to her stomach. PRN TUMS and Reglan given at 1130. IV Dilaudid prn given at 1130 prior to pt ambulating OOB with PT. At 1200 [facility], PT reported pt ambulated from bed to chair. Pt stayed in chair for approx 15-20 mins then went to BR/Toilet, then back to bed with FINANCIAL SALES REPRESENTATIVE assist. Original Note: Day Shift- Pt nauseated, very painful this AM, 8-10/10 to lower back, facial grimacing/wincing, teary. Belching. States stomach just doesn't feel right. Pt reports Dilaudid IV most helpful, doesn't last long, around [address] Quiroz at 0920 regarding above. Verbal order to increase [place] from 1 tab to 2. New order for Reglan IV prn, use Zofran prn Q4 as First choice. Per Dr. Quiroz Pt okaty to get OOB AAT. Plan for PT to see. Dr. Quiroz to clarify if pt TLSO brace would be beneficial. Spoke with [facility], PT aware of above, plan to pre-medicate pt prior to mobilizing OOB with PT around 1130. Pt also aware of plan.
[2019-10-29] MEDS: SODIUM CHLORIDE 0.9% FLUSH 10 ML IV (11:18)
[2019-10-29] MEDS: METOCLOPRAMIDE 10 MG/2 ML INJ 5 MG IV (11:18)
--- NOTE | 2019-10-29 12:47 | PM.PN.1 ---
Subjective Subjective Date Patient Seen: 10/29/19 Time Patient Seen: 12:47 Interval history: Ms. Mariely Man is a 77-year-old female with a past medical history significant for rheumatoid arthritis on methotrexate and prednisone, gastroesophageal reflux, intermittent nausea who is admitted after an L2 vertebral fracture. She continues to have difficulties with pain control, requiring IV dilaudid every 4 hours around the clock due to her opioid tolerance and acute condition. We are trialing different methods in hope that she will not require this much IV pain medication and be able to be sent home. Orthopedic surgery stated today that she does not require a brace and can weight bear as tolerated with her acute fracture. She also has had stomach burning and some nausea with all of her pain medications. Unable to give pepto-bismol as she is due for methotrexate tomorrow. Continuing to trial increased frequency of tums tablets at this time. She is on a PPI currently. Exam Vital Signs (past 8 hours): Oxygen Delivery Method Room Air Oxygen Flow Rate 0 Narrative Exam Narrative: GENERAL APPEARANCE: well developed, thin elderly female. Appears fatigued but improved with better color today. HEENT: Normocephalic, PERRLA, conjunctiva clear, EOMs intact, no rhinorrhea, mucous membranes are moist and pink without lesions or exudate. NECK/THYROID: neck supple, no JVD, no thyromegaly, trachea midline. LYMPH NODES: no cervical or supraclavicular lymphadenopathy. SKIN: [place], warm and dry, no visible lesions, rashes. HEART: RRR, S1-S2, no murmur, no rubs or gallops, brisk capillary refill, no edema LUNGS: Clear bilateral upper lobes, right lower lobe rales slightly improved, no coarseness or wheezing, non productive cough during exam. CHEST: Symmetrical movement, no accessory muscle use. ABDOMEN: Soft, no distention, no abdominal tenderness, no guarding or peritoneal signs, no organomegaly, active bowel tones. EXTREMITIES: moves all extremities, strength is 5/5 and symmetrical, no joint effusions. She has rhematoid hand deformities. Severe back tenderness over lumbar spine. NEUROLOGIC: AAO x person place and time, no focal neurologic deficits, sensation intact to light touch, hearing grossly normal to speech. PSYCH: cooperative, appropriate with stable behavior Objective Labs Result Diagrams: 10/28/19 08:15 10/28/19 08:15 Assessment & Plan Assessment & Plan narrative: Ms. Mariely Man is a 77-year-old female with a past medical history significant for rheumatoid arthritis on methotrexate and prednisone, gastroesophageal reflux, intermittent nausea who is admitted after an L2 vertebral fracture, she was changed to inpatient status today due to frequent need for IV pain medications secondary to her acute fracture and opiod 1. Closed L2 vertebral fracture, acute, present on admission, active - Acute L2 vertebral body fracture and L3 compression fracture (likely old). - Orthopedic surgery with no recommended interventions other than pain control. No bracing required. - Postural reduction, limit bending and lifting - pain management 2. Back pain, acute on chronic, present on admission, active - patient is chronic opiate user and has developed a tolerance to these medications, making it more difficult to control. She was getting IV dilaudid today every 4 hours for pain control. Will increase opiates from 5 to 10 mg, continue prn IV dilaudid, and add a fentanyl patch and advised patient to trial muscle relaxants instead of IV opiates in the hope that she will not need further IV pain medications. 3. Acute hyponatremia, acute on chronic, present on admission, active - suspected to be in the setting of hypovolemia, spirinolactone held. - continue to follow sodium. 4. Rheumatoid arthritis, chronic condition, stable -resume home regimen of methotrexate and prednisone 5. GERD (h/o peptic ulcer disease and prior GIB), chronic condition, present on admission, stable - resume home PPI, have increased her tums tablets. Full Code. Patient has a formal health directive. Designates spouse as a surrogate decision maker. Home medications reviewed and reconciled accordingly VTE prophylaxis: lovenox Quality VTE Deep Vein Thrombosis/Pulmonary Embolism Present on Admission: No
[2019-10-29] MEDS: LIDOCAINE PATCH 1 EACH ADH..PATCH TOP (13:35)
--- NOTE | 2019-10-29 14:17 | CM.DPC ---
DCP: continued: pt has continued to have ongoing issues with pain management. Admission status discussed in Team Rounds with Dr. Quiroz and UR MARIA FERNANDA Her and both agree admission status appropriate to change today from OBS to INPT. Dr. Quiroz did consult with ortho ROCHELLE Jenkins re consideration of TLSO need..decision was that pt did not need this, only needed to be mindful of her precations. Met now in followup with pt. She is aware that she will now be eligible for a snf plan if need be but she reports that just today she was able to get up with PT and get to the bathroom and is feeling very positive about going home. She wants very much to go home on Friday the . IF all does not go as well as she hopes she would be eligible for a snf setting on Wednesday 11/01. DCP team will continue to follow. MARIA FERNANDA Davila reports last BM was 2 days ago, her intake has been limited as she has been so nauseated with the pain medication changes and she has not until today been very mobile. OT and PT will continue working with pt. P: follow: pt hopeful for home setting but has options as per above.
--- NOTE | 2019-10-29 15:16 | PT.IIE ---
Surgical History (Last Reviewed 10/28/19 @ 05:04 by NIRMAL Ross) History of hand surgery (Acute) History of total left knee replacement (Acute) History of total right knee replacement (Acute) Status post total hip replacement, left (Acute) Status post wrist surgery (Acute) Medical History (Last Reviewed 10/28/19 @ 05:04 by NIRMAL Ross) GERD (gastroesophageal reflux disease) (Acute) Peripheral edema (Acute) Rheumatoid arthritis (Acute) Physical Therapy Inpatient Evaluation/Re-Eval M1 PT/OT-IP Prior Functional Status Start: 10/29/19 09:14 Freq: NEEDED Status: Active Protocol: Document 10/29/19 11:35 HH (Rec: 10/29/19 15:16 HH [email or web address]) Medical Review Prior Functional Status Communication No deficits noted. Able to make needs known Mobility and Gait Per EMR, Pt has a past medical history significant for rheumatoid arthritis. Pt uses a 4ww at baseline. She and her both manage the housework. He cooks, she cleans up. He does anything that might require detailed work with the hands the this includes the driving. Pt says she is able to manage her own medication as her [facility]: [facility] [place] gives her special bottles to use which she is able to open. Activities of Daily Living and IADL's see above Social History Household Members spouse Living Arrangements House Number of Floors (Floors) One Floor Number of Stairs To Enter/Railing? no RANI Home Environment High Toilet,Walk in Shower Home Equipment Front Wheel Walker,Four Wheel Walker,Straight Cane,Raised Toilet Seat Without Armrests, Grab Bars Near Toilet Employment Status Retired Additional Social History Comment Ms. Mariely Man is a 77- year-old female for 50 years who also has a son and dtr. She has past medical history significant for rheumatoid arthritis on methotrexate and prednisone, gastroesophageal reflux, intermittent nausea who is admitted after an L2 vertebral fracture. Pt reports a pelvic frature after a fall about 2 years ago. At that time she went to [facility] under her Medicare snf benefit and then to home with husbands support and a couple weeks of PT. M2 PT-IP Current Condition Start: 10/29/19 09:14 Freq: NEEDED Status: Active Protocol: Document 10/29/19 11:35 HH (Rec: 10/29/19 15:16 [email or web address]) Physical Therapy Current Condition Current Condition Evaluation Date 10/29/19 Treatment Diagnosis L2 vertebral fracture, difficulty in walking, generalized weakness Onset Date 10/27/19 Weight Bearing Status Weight Bearing Status Weight Bear as Tolerated M3 PT-IP Subjective Start: 10/29/19 09:14 Freq: NEEDED Status: Active Protocol: Document 10/29/19 11:35 HH (Rec: 10/29/19 15:16 [email or web address]) Subjective Physical Therapy Visit Type Type Initial Evaluation Visit Start Time 11:35 Visit Stop Time 12:05 Total Visit Minutes 20 Notes Spoke to prior to assessment. Pt had an ortho assessment upon ER visit and was recommended activity as lori. Dr. Quiroz stated he will consult with ortho again to check if pt needed a back brace. pt has not been OOB since admission d/t pain. Number of TOLL TESTBOARD WORKER Visits 0 Physical Therapy Visit Comments Patient Comments Im feeling better after the medication. Im willing to get to the chair. Patient Goals To return home if possible. Therapy Pain Assessment Pain When Pain Assessed During Mobility Pain Present Pain Present Pain Reported Location Lower Back Intensity 4 Scale Used Numeric (1 - 10) Description Acute Pain Behaviors Calling Out,Facial Grimacing Pain Management Techniques Apply Cold,Timing of Activity with Medications M4 PT-IP Mobility and Gait Start: 10/29/19 09:14 Freq: NEEDED Status: Active Protocol: Document 10/29/19 11:35 HH (Rec: 10/29/19 15:16 [email or web address]) PT-Bed Mobility Assessment Rolling Type of Rolling Log Rolling,Roll to Left Level of Assist Minimal Assistance,1 Person Assistance Scooting Scooting to Edge of Bed Minimal Assistance PT-Transfer Assessment Sit to and From Stand Sit to and from Stand Minimal Assistance,Use of Upper Extremities Equipment Transfer Assistive Device Gait Belt,Front Wheeled Walker Orthotic/Prosthetic Devices or Brace: No Transfers Transfer Destination Bed,Chair Transfer Technique amb with FWW Transfer Ability Level of Assist Minimal Assistance,Use of Upper Extremities Comments Mobility Comments Pt was in bed upon assessment, reports of decreased pain after being medicated. Agreeable to mobilize with PT. Educated pt log roll for bed mobility to minimize trunk movement. Pt completed log roll to L by using bed rail and RLE to push off. She then needed min A for SL to sit and min A to scoot towards EOB. Pt has significant RA with difficulty with grasp who tends to hold therapist arm for support. She then min A and FWW and stand step pivot to chair on her L side with proper descend and technique. Pt was carefully positioned with pillows for support. She did c/o increased low back pain after being seated. Notified nursing and Call light placed within reach Gait Assessment Comments Gait Comments did not assess d/t pain Stair Climbing Assessment Comments Stair Climbing Comments did not assess d/t pain PT-Balance Assessment Sitting Balance and Reactions Static Sitting Balance Ability Normal Dynamic Sitting Balance Ability Normal Standing Balance and Reactions Static Standing Balance Ability Normal Dynamic Standing Balance Ability Good Device Used FWW M5 PT-IP Objective Assessments Start: 10/29/19 09:14 Freq: NEEDED Status: Active Protocol: Document 10/29/19 11:35 HH (Rec: 10/29/19 15:16 [email or web address]) Orientation Orientation/Cognition Level of Alertness Alert Orientation Name,Age,Birthday,Month,Date, Year,Day of Week,Place, Situation Language Function Ability No Deficits Noted Safety Awareness Understands Safety Issues Memory Description No Deficits Noted Gross Range of Motion Upper Extremity ROM Assessment Within Functional Limits Impairments pt has significant RA with ulnar deviation in both wrists and hands Lower Extremity ROM Assessment Within Functional Limits Impairments significant genu varus due to RA Strength Upper Extremity Strength Assessment Bilaterally Impaired Lower Extremity Strength Assessment Bilaterally Impaired Hip 4-/5 Knee 4-/5 Sensation Assessment Sensation Gross Sensation WNL Muscle Tone Muscle Tone WNL Yes M6 PT-IP Treatment Start: 10/29/19 09:14 Freq: NEEDED Status: Active Protocol: Document 10/29/19 11:35 HH (Rec: 10/29/19 15:16 [email or web address]) Physical Therapy Treatment Exercises Exercises Ankle Pumps,Quad Sets Education Education Provided Precautions,Weight Bearing Status,Post-Op Packet,Safety M7 PT-IP Assessment and Plan Start: 10/29/19 09:14 Freq: NEEDED Status: Active Protocol: Document 10/29/19 11:35 (Rec: 10/29/19 15:16 [email or web address]) PT Summary Assessment and Plan Potential Rehabilitation Potential Excellent Status of Condition at Evaluation Stable Summary Impairments Pain,ROM,Strength,Balance, Coordination,Sensation,Bed Mobility,Transfers,Gait, Activity Tolerance Assessment Summary Pt is a low complexity 79yo female admitted to s/p fall 2 days ago with a L2 vertebral fx. Pt also had a recent admission d/t pneumonia but she was able to d/c home after. Upon assessment, pt was well medicated before therapy which helped her significant and she was able to perform log roll and got OOB to chair with min A x1 but slowly. But she then had increased low back pain in seated position. Spoke to Dr. Quiroz that pt might possibly get a back brace depends on ortho recommendation, but cont mobility as lori. Pt currently has very limited mobility and pain, therefore, rec short skill therapy to improve her mobility and strength prior to return home. Goals Bed Mobility Goal Standby Assistance Transfer Goal Standby Assistance,Front Wheeled Walker,Four Wheeled Walker Gait Goal Contact Guard Assistance,Front Wheel Walker,Four Wheel Walker Gait Distance 100 Other Goals with FWW/4WW Days to Meet Goals 10 Frequency of Treatment Frequency Of Treatment Once a Day Treatment Plan Physical Therapy Treatment Plan Bed Mobility Training,Transfer Training,Gait Training, Therapeutic Exercise,Balance Retraining,Discharge Planning, Hot or Cold Pack,Neuromuscular Re-ed Other Recommendations and Next Treatment check ortho rec if brace is Focus needed mob as lori FWW/ 4WW Recommendations To Nursing Amount of Assist Needed Standby Assistance Discharge Recommendations PT Discharge Recommendations SNF Rehab Transportation Needs at Discharge Wheelchair/Cabulance
[2019-10-30] MEDS: HYDROMORPHONE 0.5 MG INJ IV ×4 (00:07→15:35)
[2019-10-30] MEDS: HYDROCODONE/ACET 5/325 TABLET 2 TAB PO ×2 (03:02→09:27)
[2019-10-30 03:28] VITALS: BP 142/64; PULSE 92; RESP 18; TEMP 37; O2SAT 95
[2019-10-30] MEDS: PANTOPRAZOLE 40 MG TABLET PO (05:39)
[2019-10-30 05:55] LABS: Add Manual Diff / Slide Review NO; Basophils Absolute Auto 0 /uL (0-100); Basophils Percent Auto 0.5 % (0-2); Eosinophils Absolute Auto 200 /uL (0-450); Eosinophils Percent Auto 2.1 % (2-4); Hematocrit 33.5 % (36-46); Hemoglobin 11.3 g/dL (12.0-16.0); Lymphocytes Absolute Auto 1100 /uL (1100-4500); Lymphocytes Percent Auto 14.1 % (25-40); Mean Corpuscular HGB Conc 33.7 % (30-36); Mean Corpuscular Hemoglobin 32.1 PG (26-34); Mean Corpuscular Volume 95.3 fL (80-100); Monocytes Absolute Auto 800 /uL (0-900); Monocytes Percent Auto 9.8 % (3-14); Neutrophils Absolute Auto 5700 /uL (1500-7000); Neutrophils Percent Auto 73.5 % (50-75); Platelet Count 259 X10^3/uL (150-400); Red Blood Cell Count 3.52 X10^6/uL (4.0-5.2); Red Cell Distribution Width 15.3 % (11.6-14.8); White Blood Cell Count 7.8 X10^3/uL (4.5-11.0)
[2019-10-30 05:58] LABS: Blood Urea Nitrogen 7 mg/dL (7-17); Calcium 8.9 mg/dL (8.4-10.2); Carbon Dioxide 28 mmol/L (22-32); Chloride 98 mmol/L (98-107); Estimated Glomerular Filt Rate > 60.0 mL/min (>60); Glucose 91 mg/dL (80-110); HEMOLYSIS < 15 (0-50); Potassium 3.5 mmol/L (3.4-5.1); Sodium 132 mmol/L (137-145)
[2019-10-30] MEDS: ONDANSETRON 4 MG/2 ML INJ IV ×2 (06:38→22:53)
--- NOTE | 2019-10-30 07:02 | PC.NURSE ---
Declined Methotrexate 0630 dose. Notified NIRMAL Desouza, states I will talk to the pt.. Will report to lamar IRVING.
[2019-10-30 07:20] VITALS: BP 128/71; PULSE 84; RESP 16; TEMP 37.1; O2SAT 96
[2019-10-30] MEDS: LIDOCAINE PATCH 1 EACH ADH..PATCH TOP (08:26)
[2019-10-30] MEDS: METOCLOPRAMIDE 10 MG/2 ML INJ 5 MG IV ×2 (08:29→14:42)
[2019-10-30] MEDS: ENOXAPARIN 40 MG/0.4 ML SYRINGE SUBCUT (08:37)
--- NOTE | 2019-10-30 09:22 | CM.DPC ---
DCP Cont: Discussed plan with hospitalist, Dr. Montenegro. Asked when patient would be eligible for skilled. Let her know that she will be eligible by Friday, since her inpatient status started yesterday. P.T. continues to recommend skilled. It is noted that patient has been to [facility], and this is the facility that she wants to go to, since she has been there before. Left a message with [facility] admissions. Faxed over the referral. Will see how patient functions today with P.T. Patient was also hoping for home if she continues to improve. P: DCP to continue to follow. Will discuss in team rounds and collaborate with the P.T. team regarding findings. Coreen Anguiano RN/Pipe Coverer Helper
--- NOTE | 2019-10-30 10:05 | P.PN_ITS ---
Subjective Subjective Date Patient Seen: 10/29/19 Time Patient Seen: 12:05 Exam Vital Signs (past 8 hours): - 10/30/19 03:28 10/30/19 07:20 Temperature 98.6 F 98.7 F Pulse Rate 92 H 84 Respiratory Rate 18 16 Blood Pressure 142/64 H 128/71 Pulse Oximetry 95 96 Oxygen Delivery Method Room Air Oxygen Flow Rate 0 Objective Labs Result Diagrams: 10/30/19 05:35 10/30/19 05:35 Labs: Laboratory Results - last 24 hr 10/30/19 10/30/19 05:35 05:35 WBC 7.8 RBC 3.52 L Hgb 11.3 L Hct 33.5 L MCV 95.3 MCH 32.1 MCHC 33.7 RDW 15.3 H Plt Count 259 Neut % (Auto) 73.5 Lymph % (Auto) 14.1 L Petroleum % (Auto) 9.8 Eos % (Auto) 2.1 Baso % (Auto) 0.5 Neut # (Auto) 5700 Lymph # (Auto) 1100 Petroleum # (Auto) 800 Eos # (Auto) 200 Baso # (Auto) 0 Sodium 132 L Potassium 3.5 Chloride 98 Carbon Dioxide 28 BUN 7 Creatinine 0.50 L Estimated GFR > 60.0 BUN/Creatinine Ratio 14.0 Glucose 91 Calcium 8.9 Quality VTE Deep Vein Thrombosis/Pulmonary Embolism Present on Admission: No
[2019-10-30 11:27] VITALS: BP 126/73; PULSE 86; RESP 16; TEMP 37.4; O2SAT 96
[2019-10-30] MEDS: predniSONE 10 MG TABLET PO (11:35)
[2019-10-30] MEDS: HYDROMORPHONE 2 MG TABLET 1 MG PO (12:48)
[2019-10-30] MEDS: CALCITONIN,SALMON, NASAL SPRAY 1 SPRAYS NASAL (13:01)
--- NOTE | 2019-10-30 13:18 | PM.PN.1 ---
Subjective Subjective Date Patient Seen: 10/30/19 Interval history: Mariely Man is a 77-year-old female with a past medical history significant for rheumatoid arthritis on methotrexate and prednisone and GERD who presented to [facility] after a ground level fall complaining of back pain and found to have L2 compression fracture. The patient is resting in bed comfortably. She reports that the PO Dilaudid is helping with her back pain. She had an episode of nausea and vomiting this morning likely due to taking narcotics on an empty stomach and recommended she take all narcotics with food. The patient is well-known to me and has a poor functional status and severely limited mobility at baseline due to her severe rheumatoid arthritis. She has no other complaints and denies headache, shortness of breath, chest pain, abdominal pain, nausea, vomiting, fever, chills, dysuria, diarrhea or constipation. She is voiding and eliminating without difficulty. She is up ambulating minimally with assistance. Exam Vital Signs (past 8 hours): - 10/30/19 07:20 10/30/19 11:27 Temperature 98.7 F 99.4 F Pulse Rate 84 86 Respiratory Rate 16 16 Blood Pressure 128/71 126/73 Pulse Oximetry 96 96 Oxygen Delivery Method Room Air Oxygen Flow Rate 0 Narrative Exam Narrative: General: Elderly thin frail female lying bed and appears comfortable, appropriately interactive. HEENT: Normocephalic, atraumatic. External ears without defect. Pupils equal, round, and reactive to light. Anicteric sclerae, moist conjunctivae, and no lid lag. Neck: Supple with full range of motion. No lymphadenopathy or thyromegaly. Cardiovascular: Regular rate and rhythm without murmurs, rubs, or gallops appreciated. Pulmonary: Clear to auscultation bilaterally without crackles, wheezes, or rhonchi. Normal respiratory effort with no use of accessory muscles. Abdomen: Soft, bowel sounds present, nontender, nondistended. No hepatosplenomegaly or masses appreciated. Extremities: No clubbing, cyanosis, or edema. RA changes in hands, knees, and feet bilaterally. Mild tenderness to palpation in lumbar spine. Skin: Normal temperature, turgor, and texture; no rash, ulcers, or subcutaneous nodules appreciated. Neurological: Cranial nerves grossly intact. Psychiatric: Normal mood and affect. Alert and oriented to person, place, and time. Objective Labs Result Diagrams: 10/30/19 05:35 10/30/19 05:35 Labs: Laboratory Results - last 24 hr 10/30/19 10/30/19 05:35 05:35 WBC 7.8 RBC 3.52 L Hgb 11.3 L Hct 33.5 L MCV 95.3 MCH 32.1 MCHC 33.7 RDW 15.3 H Plt Count 259 Neut % (Auto) 73.5 Lymph % (Auto) 14.1 L [place] % (Auto) 9.8 Eos % (Auto) 2.1 Baso % (Auto) 0.5 Neut # (Auto) 5700 Lymph # (Auto) 1100 [place] # (Auto) 800 Eos # (Auto) 200 Baso # (Auto) 0 Sodium 132 L Potassium 3.5 Chloride 98 Carbon Dioxide 28 BUN 7 Creatinine 0.50 L Estimated GFR > 60.0 BUN/Creatinine Ratio 14.0 Glucose 91 Calcium 8.9 Assessment & Plan Assessment & Plan narrative: Mariely Man is a 77-year-old female with a past medical history significant for rheumatoid arthritis on methotrexate and prednisone and GERD who presented to [facility] after a ground level fall complaining of back pain and found to have L2 compression fracture. 1. Acute closed L2 vertebral fracture, present on admission. Active. -Patient presented after ground level fall with low back pain. -CT lumbar spine without contrast demonstrated acute L2 vertebral body fracture and L3 compression fracture (likely old). -Consulted orthopedic surgery who recommended continued pain control and no surgical intervention. No bracing required. Postural reduction, limit bending and lifting. -Continue physical and occupational therapy evaluation treatment. 2. Acute on chronic back pain, present on admission. Active. -Patient is chronic opiate user and has developed a tolerance to these medications, making it more difficult to control. -Continue pain control with: Acetaminophen 975 mg every 8 hours, calcitonin 1 intranasal spray daily, Lidocaine patch daily, methocarbamol 500 mg 3 times daily as needed for muscle spasm, Dilaudid 1-2 mg PO every 3 hours for severe pain and Dilaudid 0.5 mg IV every 4 hours as needed for severe breakthrough pain only. 3. Hyponatremia, chronic, present on admission, active -Suspected to be in the setting of hypovolemia. Spirinolactone has been held. -Initial sodium level 132. Baseline sodium level ranges from 128 to 136. -Continue to monitor sodium level daily. 4. Rheumatoid arthritis, chronic, present on admission. Stable. -Continue home methotrexate 20 mg IM a every week on Friday and prednisone 10 mg daily. 5. GERD (h/o peptic ulcer disease and prior GIB), chronic condition, present on admission, stable -Continue omeprazole 40 mg daily and calcium carbonate 500 mg 4 times daily as needed. Code status: Full Code. Patient has a formal health directive. Designates spouse as a surrogate decision maker. VTE prophylaxis: lovenox Disposition: Patient likely to discharge in the next 1-[facility] versus home with home health and private caregiving once pain is under control and she is mobilizing. Quality VTE Deep Vein Thrombosis/Pulmonary Embolism Present on Admission: No
[2019-10-30] MEDS: methocarbamoL 500 MG TABLET PO (13:39)
--- NOTE | 2019-10-30 14:48 | PT.IPTN ---
Current Diagnoses Unspecified fracture of second lumbar vertebra, initial encounter for closed fracture (10/29/19) Physical Therapy Treatment Note M2 PT-IP Current Condition Start: 10/29/19 09:14 Freq: NEEDED Status: Active Protocol: Document 10/29/19 11:35 HH (Rec: 10/29/19 15:16 HH [id number]) Physical Therapy Current Condition Current Condition Evaluation Date 10/29/19 Treatment Diagnosis L2 vertebral fracture, difficulty in walking, generalized weakness Onset Date 10/27/19 Weight Bearing Status Weight Bearing Status Weight Bear as Tolerated M3 PT-IP Subjective Start: 10/29/19 09:14 Freq: NEEDED Status: Active Protocol: Document 10/30/19 14:18 KS (Rec: 10/30/19 15:15 KS [id number]) Subjective Physical Therapy Visit Type Type Treatment Note Visit Start Time 14:18 Visit Stop Time 14:48 Total Visit Minutes 30 Number of JACK FRAME TENDER Visits 1 Physical Therapy Visit Comments Patient Comments Pt was reluctant to work w/ therapy but agreed to do LE strengthening and after agreed to get up to use bedside commode. Therapy Pain Assessment Pain When Pain Assessed During Mobility Pain Present Pain Present Pain Reported Location Lower Back Intensity 6 Scale Used Numeric (1 - 10) Pain Behaviors Facial Grimacing,Wincing Pain Management Techniques Re-positioning M4 PT-IP Mobility and Gait Start: 10/29/19 09:14 Freq: NEEDED Status: Active Protocol: Document 10/30/19 14:18 KS (Rec: 10/30/19 15:15 KS [id number]) PT-Bed Mobility Assessment Rolling Type of Rolling Log Rolling,Roll to Left Level of Assist Minimal Assistance,1 Person Assistance Scooting Scooting to Edge of Bed Contact Guard Assistance Scooting Up and Down in Bed Maximum Assistance PT-Transfer Assessment Sit to and From Stand Sit to and from Stand Minimal Assistance,1 Person Assistance,Use of Upper Extremities Equipment Transfer Assistive Device Gait Belt,Front Wheeled Walker Orthotic/Prosthetic Devices or Brace: No Transfers Transfer Destination Bed,Bedside Commode Transfer Technique Stand Step Pivot Transfer Ability Level of Assist Minimal Assistance,1 Person Assistance,Use of Upper Extremities Comments Mobility Comments Pt was in bed upon arrival from therapy and stated that she did not want to get out of bed, but agreed to do LE strengthening exercises. Nursing called in to help scoot pt up in bed patient in bed max A x2. Pt completed 1x10 ankle pumps and quad sets , 1x10 heel slides on LLE, 1x7 heel slides, RLE. Pt then stated that she would get up to use bedside commode. Pt able to complete logroll and sidelying<>sit Min A for LE assitance. Pt then scooted to EOB using hand rail and CGA. Min A and cues for hand placement for sit<>stand from bed w/ FWW. Pt then completed stand step pivot to bedside commode and stand<>sit w/ cues Min A. After toileting, pt performed own pericare and stood and trransferred stand step pivot back to bed Min A. Pt then refused marching in place. Min A mod cues for logroll back into bed. Once in bed, nursing came back in to help scoot patient up in bed, Max A x2. Nursing notified of pts void in bedside commode. Pt left comfortably in bed w/ all needs in reach. Gait Assessment Comments Gait Comments did not assess d/t pain Stair Climbing Assessment Comments Stair Climbing Comments did not assess d/t pain PT-Balance Assessment Sitting Balance and Reactions Static Sitting Balance Ability Normal Dynamic Sitting Balance Ability Normal Standing Balance and Reactions Static Standing Balance Ability Fair Dynamic Standing Balance Ability Fair Device Used FWW M5 PT-IP Objective Assessments Start: 10/29/19 09:14 Freq: NEEDED Status: Active Protocol: Document 10/29/19 11:35 HH (Rec: 10/29/19 15:16 HH [id number]) Orientation Orientation/Cognition Level of Alertness Alert Orientation Name,Age,Birthday,Month,Date, Year,Day of Week,Place, Situation Language Function Ability No Deficits Noted Safety Awareness Understands Safety Issues Memory Description No Deficits Noted Gross Range of Motion Upper Extremity ROM Assessment Within Functional Limits Impairments pt has significant RA with ulnar deviation in both wrists and hands Lower Extremity ROM Assessment Within Functional Limits Impairments significant genu varus due to RA Strength Upper Extremity Strength Assessment Bilaterally Impaired Lower Extremity Strength Assessment Bilaterally Impaired Hip 4-/5 Knee 4-/5 Sensation Assessment Sensation Gross Sensation WNL Muscle Tone Muscle Tone WNL Yes M6 PT-IP Treatment Start: 10/29/19 09:14 Freq: NEEDED Status: Active Protocol: Document 10/30/19 14:18 KS (Rec: 10/30/19 15:15 KS [id number]) Physical Therapy Treatment Exercises Exercises Ankle Pumps,Quad Sets,Heel Slides Education Education Provided Precautions,Weight Bearing Status,Post-Op Packet,Safety M7 PT-IP Assessment and Plan Start: 10/29/19 09:14 Freq: NEEDED Status: Active Protocol: Document 10/30/19 14:18 KS (Rec: 10/30/19 15:15 KS [id number]) PT Summary Assessment and Plan Potential Rehabilitation Potential Excellent Status of Condition at Evaluation Stable Summary Impairments Pain,ROM,Strength,Balance, Coordination,Sensation,Bed Mobility,Transfers,Gait, Activity Tolerance Assessment Summary Pt at first did not want to work with therapy, but then agreed to LE strengthening. Pt instructed on and completed ankle pumps, quad sets, and heel slides. Pt then agreed to get out of bed to use bedside commode. Min A and cues for logroll to L, CGA and bed rail for scooting to EOB, Min A and cues for hand placement for sit<>stand w/ FWW. Pt then completed stand step pivot w/ FWW and sat on commode both Min A and cues. After toileting, pt stood from bedside commode w/ FWW and performed stand step pivot back to bed Min A and cues. Pt denied marching in place, sat back in bed and then completed logroll Min A and mod cues. Nursing assisted in scooting pt up in bed Max A x2 . Unable to complete gait or pre-gait training d/t pain. Pt will benefit from continued skilled rehab to assess strength deficits, but remains mostly limited by high levels of pain. Recommending SNF rehab before returning home to assess strength and mobility deficits. Goals Bed Mobility Goal Standby Assistance Transfer Goal Standby Assistance,Front Wheeled Walker,Four Wheeled Walker Gait Goal Contact Guard Assistance,Front Wheel Walker,Four Wheel Walker Gait Distance 100 Other Goals with FWW/4WW Days to Meet Goals 10 Frequency of Treatment Frequency Of Treatment Once a Day Treatment Plan Physical Therapy Treatment Plan Bed Mobility Training,Transfer Training,Gait Training, Therapeutic Exercise,Balance Retraining,Discharge Planning, Hot or Cold Pack,Neuromuscular Re-ed Other Recommendations and Next Treatment check ortho rec if brace is Focus needed mob as lori FWW/ 4WW Recommendations To Nursing Amount of Assist Needed 1 Person Assist Discharge Recommendations PT Discharge Recommendations SNF Rehab Transportation Needs at Discharge Wheelchair/Cabulance
--- NOTE | 2019-10-30 15:08 | CM.DPC ---
DCP Cont: Met with patient in her room. She had been up with P.T. prior, then, was laying in bed. Introduced self and role. Patient is alert and oriented. Discussed discharge planning with patient. Stated and confirmed that she resides with her , Azam. Stated, she tripped over her own two feet resulting a fall, which is why she is here. Patient does have children in the [facility] area. Stated that before the fall, she was getting around with a walker. Discussed options, such as home health versus half-way. Patient stated, I really want to go to [facility], because I have been there before. Discussed with patient going home with her and home health. Patient stated, she is afraid that it would be too much for him to care for her. Encouraged her to see how she does with P.T. tomorrow, and this telephonic nurse case manager will reach out to her to see progress. P: DCP to continue to follow. Will send an alternate referral to [facility] in . as well, in case [facility] is full. Coreen Anguiano RN/Concrete Pavement Installer
--- NOTE | 2019-10-30 15:15 | P.PN_ITS ---
Subjective Subjective Date Patient Seen: 10/30/19 Time Patient Seen: 15:16 Interval history: Ms. Mariely Man is a 77-year-old female with a past medical history significant for rheumatoid arthritis on methotrexate and prednisone, gastroesophageal reflux, intermittent nausea who is admitted after an L2 vertebral fracture. Hospitalist is managing pain control. Patient does not recall a previous compression fracture and did not treat it. She states her pain is severe and she is willing to discuss further treatment options with Dr. Eric in our office. Exam Vital Signs (past 8 hours): - 10/30/19 07:20 10/30/19 11:27 Temperature 98.7 F 99.4 F Pulse Rate 84 86 Respiratory Rate 16 16 Blood Pressure 128/71 126/73 Pulse Oximetry 96 96 Oxygen Delivery Method Room Air Oxygen Flow Rate 0 Narrative Exam Narrative: Patient lying in bed in NAD. She is alert and oriented X3. Calves are soft, compressible, nontender bilaterally. Dorsalis pedis pulses are symmetrical. She is able to actively dorsiflex and plantar flex. No motor deficits. Sensation intact to light touch of bilateral lower extremities. Objective Labs Result Diagrams: 10/30/19 05:35 10/30/19 05:35 Labs: Laboratory Results - last 24 hr 10/30/19 10/30/19 05:35 05:35 WBC 7.8 RBC 3.52 L Hgb 11.3 L Hct 33.5 L MCV 95.3 MCH 32.1 MCHC 33.7 RDW 15.3 H Plt Count 259 Neut % (Auto) 73.5 Lymph % (Auto) 14.1 L [place] % (Auto) 9.8 Eos % (Auto) 2.1 Baso % (Auto) 0.5 Neut # (Auto) 5700 Lymph # (Auto) 1100 [place] # (Auto) 800 Eos # (Auto) 200 Baso # (Auto) 0 Sodium 132 L Potassium 3.5 Chloride 98 Carbon Dioxide 28 BUN 7 Creatinine 0.50 L Estimated GFR > 60.0 BUN/Creatinine Ratio 14.0 Glucose 91 Calcium 8.9 Assessment & Plan Assessment and plan (1) Closed lumbar vertebral fracture: Problem details: We discussed starting calcitonin nasal spray. She agrees with plan. She should limit bending lifting and twisting. I am recommending she be seen by Dr. Eric in our office on Friday next week at 4:30 p.m. in [place]. Qualifiers: Encounter type: initial encounter Fracture morphology: other fracture Lumbar vertebra fracture level: L2 Qualified Code(s): S32.028A - Other fracture of second lumbar vertebra, initial encounter for closed fracture Current visit: Yes Status: Acute Quality VTE Deep Vein Thrombosis/Pulmonary Embolism Present on Admission: No
[2019-10-30] MEDS: ACETAMINOPHEN 325 MG TABLET 975 MG PO ×2 (15:34→21:30)
--- NOTE | 2019-10-30 15:46 | OT.IPNOTE ---
Attempted to see pt for OT eval and pt states just saw CASING SPLITTER , too tired and in too much pain and just had Dilaudid. Pt refused OT eval at this time.
[2019-10-30 16:07] VITALS: BP 109/81; PULSE 93; RESP 19; TEMP 37.4; O2SAT 96
[2019-10-30] MEDS: HYDROMORPHONE 2 MG TABLET PO ×2 (17:14→20:35)
[2019-10-30] MEDS: SODIUM CHLORIDE 0.9% FLUSH 10 ML IV (20:35)
[2019-10-30] MEDS: DOCUSATE 100 MG CAPSULE PO (20:35)
[2019-10-30 21:00] VITALS: BP 137/82; PULSE 80; RESP 16; TEMP 36.6; O2SAT 98
--- NOTE | 2019-10-30 23:44 | PC.NURSE ---
pt pain is controlled with 2mg dilaudid. pt reports she was able to sleep after dilaludid. pt c/o nausea. administered zofran. call light in reach. bed alarm active.
[2019-10-31] MEDS: SODIUM CHLORIDE 0.9% FLUSH 10 ML IV ×4 (00:24→20:07)
[2019-10-31] MEDS: HYDROMORPHONE 0.5 MG INJ IV ×3 (00:24→08:21)
[2019-10-31 00:30] VITALS: BP 137/80; PULSE 80; RESP 16; TEMP 36.6; O2SAT 98
[2019-10-31] MEDS: CALCIUM CARBONATE 500 MG TAB PO (04:21)
[2019-10-31 04:25] VITALS: BP 137/77; PULSE 82; RESP 16; TEMP 36.5; O2SAT 98
[2019-10-31 06:16] LABS: Hematocrit 34.8 % (36-46); Hemoglobin 11.9 g/dL (12.0-16.0); Mean Corpuscular HGB Conc 34.1 % (30-36); Mean Corpuscular Hemoglobin 32.7 PG (26-34); Mean Corpuscular Volume 95.7 fL (80-100); Platelet Count 308 X10^3/uL (150-400); Red Blood Cell Count 3.64 X10^6/uL (4.0-5.2); Red Cell Distribution Width 15.4 % (11.6-14.8); White Blood Cell Count 6.4 X10^3/uL (4.5-11.0)
[2019-10-31 06:17] LABS: Add Manual Diff / Slide Review YES
[2019-10-31 06:22] LABS: Magnesium 1.7 mg/dL (1.6-2.3)
[2019-10-31 06:25] LABS: Blood Urea Nitrogen 7 mg/dL (7-17); Carbon Dioxide 30 mmol/L (22-32); Chloride 97 mmol/L (98-107); Estimated Glomerular Filt Rate > 60.0 mL/min (>60); Glucose 84 mg/dL (80-110); HEMOLYSIS < 15 (0-50); Potassium 3.5 mmol/L (3.4-5.1); Sodium 132 mmol/L (137-145)
[2019-10-31] MEDS: PANTOPRAZOLE 40 MG TABLET PO (06:43)
[2019-10-31] MEDS: ACETAMINOPHEN 325 MG TABLET 975 MG PO (06:43)
[2019-10-31 07:08] LABS: Neutrophils Absolute Manual 3904 /uL (3000-5900); RBC Morphology n; Total Cells Counted 100
[2019-10-31 08:00] VITALS: BP 128/69; PULSE 97; RESP 16; TEMP 36.8; O2SAT 99
[2019-10-31] MEDS: predniSONE 10 MG TABLET PO (08:21)
[2019-10-31] MEDS: ENOXAPARIN 40 MG/0.4 ML SYRINGE SUBCUT (08:21)
[2019-10-31] MEDS: DOCUSATE 100 MG CAPSULE PO ×2 (08:21→20:07)
[2019-10-31] MEDS: LIDOCAINE PATCH 1 EACH ADH..PATCH TOP (08:21)
[2019-10-31] MEDS: polyethylene glycoL 3350 17 GM POWD.PACK PO (08:21)
[2019-10-31] MEDS: CALCITONIN,SALMON, NASAL SPRAY 1 SPRAYS NASAL (08:22)
[2019-10-31] MEDS: HYDROCODONE/ACET 5/325 TABLET 2 TAB PO ×3 (10:34→20:06)
[2019-10-31 10:54] VITALS: BP 155/74; PULSE 95; RESP 16; TEMP 37.3; O2SAT 97
--- NOTE | 2019-10-31 11:17 | CM.DPC ---
DCP Cont: Spoke to Deepti in admissions at [facility]. Confirmed that she can accept patient tomorrow, Friday. PASSR completed yesterday. Will expect DC to be tomorrow, she will qualify with her 3rd midnight stay tomorrow. P: DCP to continue to follow. Patient should be able to be discharged to [facility] tomorrow. Coreen Anguiano RN/Lawn And Garden Technician
--- NOTE | 2019-10-31 12:46 | PM.PN.1 ---
Subjective Subjective Date Patient Seen: 10/31/19 Interval history: Mariely Man is a 77-year-old female with a past medical history significant for rheumatoid arthritis on methotrexate and prednisone and GERD who presented to [facility] after a ground level fall complaining of back pain and found to have L2 compression fracture. The patient is resting in bed and appears mildly uncomfortable. She reports that her pain was well controlled this morning but is coming back quicker than she anticipated. She prefers to take hydrocodone rather than Dilaudid PO due to nausea. The patient is well-known to me and has a poor functional status and severely limited mobility at baseline due to her severe rheumatoid arthritis. She informs me that she is going to try to start using a wheelchair more often and I recommended that she use a wheelchair only for long distances. Currently working on placement at nursing home facility for rehabilitation. She has no other complaints and denies headache, shortness of breath, chest pain, abdominal pain, nausea, vomiting, fever, chills, dysuria, diarrhea or constipation. She is voiding and eliminating without difficulty. She is up ambulating minimally with assistance. Exam Vital Signs (past 8 hours): - 10/31/19 08:00 10/31/19 10:54 Temperature 98.2 F 99.2 F Pulse Rate 97 H 95 H Respiratory Rate 16 16 Blood Pressure 128/69 155/74 H Pulse Oximetry 99 97 Oxygen Delivery Method Room Air Oxygen Flow Rate 0 Narrative Exam Narrative: General: Elderly thin frail female lying bed and appears mildly uncomfortable, appropriately interactive. HEENT: Normocephalic, atraumatic. External ears without defect. Pupils equal, round, and reactive to light. Anicteric sclerae, moist conjunctivae, and no lid lag. Neck: Supple with full range of motion. No lymphadenopathy or thyromegaly. Cardiovascular: Regular rate and rhythm without murmurs, rubs, or gallops appreciated. Pulmonary: Clear to auscultation bilaterally without crackles, wheezes, or rhonchi. Normal respiratory effort with no use of accessory muscles. Abdomen: Soft, bowel sounds present, nontender, nondistended. No hepatosplenomegaly or masses appreciated. Extremities: No clubbing, cyanosis, or edema. RA changes in hands, knees, and feet bilaterally. Mild tenderness to palpation in lumbar spine. Skin: Normal temperature, turgor, and texture; no rash, ulcers, or subcutaneous nodules appreciated. Neurological: Cranial nerves grossly intact. Psychiatric: Normal mood and affect. Alert and oriented to person, place, and time. Objective Labs Result Diagrams: 10/31/19 05:15 10/31/19 05:15 Labs: Laboratory Results - last 24 hr 10/31/19 10/31/19 10/31/19 05:15 05:15 05:15 WBC 6.4 RBC 3.64 L Hgb 11.9 L Hct 34.8 L MCV 95.7 MCH 32.7 MCHC 34.1 RDW 15.4 H Plt Count 308 Neut % (Auto) Not Reportable Lymph % (Auto) Not Reportable [place] % (Auto) Not Reportable Eos % (Auto) Not Reportable Baso % (Auto) Not Reportable Lymph # (Auto) Not Reportable [place] # (Auto) Not Reportable Baso # (Auto) Not Reportable Total Counted 100 Seg Neutrophils % 59.0 Band Neutrophils % 2.0 L Lymphocytes % (Manual) 27.0 Atypical Lymphs % 4.0 H Monocytes % (Manual) 6.0 Eosinophils % (Manual) 1.0 L Metamyelocytes % 1.0 H Neutrophils # (Manual) 3904 RBC Morphology n Sodium 132 L Potassium 3.5 Chloride 97 L Carbon Dioxide 30 BUN 7 Creatinine 0.50 L Estimated GFR > 60.0 BUN/Creatinine Ratio 14.0 Glucose 84 Calcium 9.0 Magnesium 1.7 Assessment & Plan Assessment & Plan narrative: Mariely Man is a 77-year-old female with a past medical history significant for rheumatoid arthritis on methotrexate and prednisone and GERD who presented to [facility] after a ground level fall complaining of back pain and found to have L2 compression fracture. 1. Acute closed L2 vertebral fracture, present on admission. Active. -Patient presented after ground level fall with low back pain. -CT lumbar spine without contrast demonstrated acute L2 vertebral body fracture and L3 compression fracture (likely old). -Consulted orthopedic surgery who recommended continued pain control and no surgical intervention. No bracing required. Postural reduction, limit bending and lifting. Recommended and scheduled follow-up at Dr. Timmons office next week 11/05/2019 at 4:30 to discuss further treatment options. -Continue physical and occupational therapy evaluation treatment. 2. Acute on chronic back pain, present on admission. Active. -Patient is chronic opiate user and has developed a tolerance to these medications, making it more difficult to control. -Continue pain control with: Calcitonin 1 intranasal spray daily, Lidocaine patch daily, methocarbamol 500 mg 3 times daily as needed for muscle spasm, hydrocodone 5-325 mg 1-2 tabs every 4 hours and Dilaudid 0.5 mg IV every 4 hours as needed for severe breakthrough pain only. 3. Hyponatremia, chronic, present on admission, active -Suspected to be in the setting of hypovolemia. Spirinolactone has been held. -Initial sodium level 132. Baseline sodium level ranges from 128 to 136. -Continue to monitor sodium level periodically. 4. Rheumatoid arthritis, chronic, present on admission. Stable. -Continue home methotrexate 20 mg IM a every week on Friday and prednisone 10 mg daily. 5. GERD (h/o peptic ulcer disease and prior GIB), chronic condition, present on admission, stable -Continue omeprazole 40 mg daily and calcium carbonate 500 mg 4 times daily as needed. Code status: Full Code. Patient has a formal health directive. Designates spouse as a surrogate decision maker. VTE prophylaxis: lovenox Disposition: Patient likely to discharge tomorrow to nursing home facility for continued rehabilitation. Quality VTE Deep Vein Thrombosis/Pulmonary Embolism Present on Admission: No
[2019-10-31] MEDS: methocarbamoL 500 MG TABLET PO ×2 (13:00→18:17)
--- NOTE | 2019-10-31 15:04 | PT-IP ANOTE ---
Pt refused stating she was in a lot of pain and the nursing staff just returned her to bed. Will check back with pt in A.M.
[2019-10-31 15:30] VITALS: BP 118/68; PULSE 91; RESP 18; TEMP 37.2; O2SAT 97
--- NOTE | 2019-10-31 15:42 | PC.NURSE ---
Pain: Pt requesting her hydrocodone be restarted. MD made aware and same was done. Pt reporting better pain relief since getting med. Progress has been slow with PT due to pain issues and pt occ refusing to participate due to pain. She and spouse spoke with md about several concerns. Hopefully will feel better tomorrow.
[2019-10-31] MEDS: HYDROCODONE/ACET 5/325 TABLET 1 TAB PO (15:51)
[2019-10-31 19:00] VITALS: BP 116/66; PULSE 93; RESP 18; TEMP 37.2; O2SAT 99
[2019-11-01 00:35] VITALS: BP 144/81; PULSE 88; RESP 16; TEMP 36.8; O2SAT 98
[2019-11-01] MEDS: HYDROCODONE/ACET 5/325 TABLET 2 TAB PO (00:39)
[2019-11-01 04:06] VITALS: BP 134/83; PULSE 84; RESP 16; TEMP 36.8; O2SAT 98
[2019-11-01] MEDS: CALCIUM CARBONATE 500 MG TAB PO (04:18)
[2019-11-01] MEDS: HYDROMORPHONE 0.5 MG INJ IV (04:48)
[2019-11-01] MEDS: SODIUM CHLORIDE 0.9% FLUSH 10 ML IV ×2 (04:48→08:03)
[2019-11-01 05:52] LABS: Add Manual Diff / Slide Review NO; Basophils Absolute Auto 0 /uL (0-100); Basophils Percent Auto 0.4 % (0-2); Eosinophils Absolute Auto 100 /uL (0-450); Eosinophils Percent Auto 1.7 % (2-4); Hematocrit 37.6 % (36-46); Hemoglobin 12.5 g/dL (12.0-16.0); Lymphocytes Absolute Auto 2000 /uL (1100-4500); Lymphocytes Percent Auto 25.8 % (25-40); Mean Corpuscular HGB Conc 33.1 % (30-36); Mean Corpuscular Hemoglobin 31.7 PG (26-34); Mean Corpuscular Volume 95.5 fL (80-100); Monocytes Absolute Auto 900 /uL (0-900); Monocytes Percent Auto 11.2 % (3-14); Neutrophils Absolute Auto 4700 /uL (1500-7000); Neutrophils Percent Auto 60.9 % (50-75); Platelet Count 370 X10^3/uL (150-400); Red Blood Cell Count 3.94 X10^6/uL (4.0-5.2); Red Cell Distribution Width 15.3 % (11.6-14.8); White Blood Cell Count 7.7 X10^3/uL (4.5-11.0)
[2019-11-01 06:08] LABS: Blood Urea Nitrogen 9 mg/dL (7-17); Calcium 9.2 mg/dL (8.4-10.2); Carbon Dioxide 32 mmol/L (22-32); Chloride 96 mmol/L (98-107); Estimated Glomerular Filt Rate > 60.0 mL/min (>60); Glucose 94 mg/dL (80-110); HEMOLYSIS < 15 (0-50); Potassium 3.3 mmol/L (3.4-5.1); Sodium 135 mmol/L (137-145)
[2019-11-01] MEDS: PANTOPRAZOLE 40 MG TABLET PO (06:55)
[2019-11-01 08:00] VITALS: BP 142/81; PULSE 109; RESP 18; TEMP 36.4; O2SAT 97
[2019-11-01] MEDS: CALCITONIN,SALMON, NASAL SPRAY 1 SPRAYS NASAL (08:01)
[2019-11-01] MEDS: predniSONE 10 MG TABLET PO (08:03)
[2019-11-01] MEDS: SENNOSIDES 8.6 MG TABLET PO (08:03)
[2019-11-01] MEDS: MAGNESIUM HYDROXIDE 30 ML UDC PO (08:03)
[2019-11-01] MEDS: DOCUSATE 100 MG CAPSULE PO (08:03)
[2019-11-01] MEDS: HYDROCODONE/ACET 5/325 TABLET 1 TAB PO (08:03)
[2019-11-01] MEDS: LIDOCAINE PATCH 1 EACH ADH..PATCH TOP (08:04)
[2019-11-01] MEDS: ENOXAPARIN 40 MG/0.4 ML SYRINGE SUBCUT (08:04)
[2019-11-01] MEDS: polyethylene glycoL 3350 17 GM POWD.PACK PO (08:04)
--- NOTE | 2019-11-01 08:30 | PT-IP ANOTE ---
Pt refused stating she is in a lot of pain due to not having a bowel movement and does not want to get up. Pt scheduled for d/c to [facility] at 10:00.
--- NOTE | 2019-11-01 08:38 | CM.DPC ---
Addendum entered by Xiao Gill R.N. 11/01/19 13:53: Patient transport was suppose to be here by 1pm CM/Rn attempted to call [facility] five times and left voice messages and have had no call back. CM/Rn called [facility] since they were the company that [facility] had set up transport with. Called them they had seed cone picker scheduled for 3:30PM. CM/RN talked with them and they will pick patient up at 2:30pm instead and bring patient to [facility]. BECKY/RN will continue to work on reaching Kim and [facility] to let her know. Xiao Gill RN Addendum entered by Xiao Gill R.N. 11/01/19 13:24: BECKY/Rn Contacted [facility] to check on transportation for patient since it was scheduled for 1pm and transport still hasn't arrived. Left voice message and will call again in 15mins if not hear back. Xiao Gill RN Addendum entered by Xiao Gill R.N. 11/01/19 11:30: BECKY/RN heard back from Kim at [facility] and she is working on getting transport set up for earlier then 1pm but at the worse case scenario [facility] will be here at 1 to seed cone picker the patient. [employer] and patients RN notified. Xiao iGll RN Original Note: DCP continued: EMR reviewed: CM/RN called Kim at [facility] to let her know we have D/C orders in. Kim stated they can accept today and seed cone picker time would be at 10am. CM/RN notified [employer] as well as patients RN. CM/RN faxed PASRR and D/C orders to [facility] and will Fax D/C summary when it is ready. PASRR given to SONYA Linares to scan and original placed in D/C packet to be sent with patient to [facility]. Xiao Gill RN
--- NOTE | 2019-11-01 09:11 | P.DS_ITS ---
History of Present Illness History of Present Illness Date Patient Seen: 10/28/19 Chief complaint: GLF Narrative: Written by Brian KINNEY: The patient is an 79-year-old female with PMH of RA, recurrent UTIs (on prophylactic ABX), osteoporosis, PUD with prior h/o GIB, chronic anemia, compression fracture, prior tobacco dependence (20 PYH, quit 1979). Patient presented to the ED on 10/27/2019 out of concern for severe lumbar and sacral pain. Pain was a sequela of a ground level fall. Patient has tripped over her own feet and landed on the ground with impact to lower back. Reports onset of pain immediately to site of injury. Patient denies injury to the head. She denies loss of consciousness. There was no associated loss of bowel or bladder control. Fall was not preceded by dizziness or lightheadedness. Patient does mention that she typically runs low BP. Patient was unable to get up by herself. Her was near and lifted her off the ground. Patient describes pain as moderate to severe. It is exacerbated with movement and relieved with rest. Patient is known to have been hospitalized 09/14 to 09/17 for community-acquired pneumonia. Review of records notes patient developing ABX associated diarrhea, however patient herself denies presence of diarrhea, nausea, or vomiting. Initial labs remarkable for hypovolemia and leukocytosis. No fever or chills. ED Presentation & Work-Up BP mildly elevated, otherwise stable VS trend. Labs, 08/27 0020 WBC 15.7 Hgb 11.6 Hct 35.1 Plt 322 Na 131 K 4.0 Cl 96 Ca 8.8 Glu 103 CO2 29 BUN 12 Cr 0.6 BUN:Cr 20 CT lumbar spine. Acute L2 vertebral body fracture and L3 compression fracture (likely old). CT pelvis wo contrast. No acute fracture seen. Old fractures of the left pubic rami extending to the pubic body. Possible old trauma Discharge Providers Provider Date of admission: 10/29/19 09:40 Discharge Date: 11/01/19 Primary care physician: Alen Garsia MD Consults: 10/28/19 01:44 Consult to Dietitian, Adult Routine Comment: Reason For Exam: MNA score of 10 10/28/19 06:17 Consult to Physical Therapy Evaluate & Treat Comment: L2 vertebral fracture, adv act as lori. TLSO ? Physician Instructions: Evaluate and Treat 10/28/19 06:20 Consult to Orthopedic Surgery Routine Comment: Consulting Provider: [facility] Reason for consultation: acute L2 vertebral fracture Has provider been notified: No 10/30/19 10:12 Consult to Occupational Therapy Evaluate & Treat Comment: Physician Instructions: Evaluate and treat Discharge provider: Emperatriz Montenegro DO Summary Hospital Course Discharge Diagnosis: 1. Acute pathological L2 vertebral compression fracture, present on admission. Active. 2. Acute on chronic back pain, present on admission. Active. 3. Hyponatremia, chronic, present on admission. Stable. 4. Acute hypokalemia, not present on admission. Resolved. 5. Rheumatoid arthritis, chronic, present on admission. Stable. 6. GERD (h/o peptic ulcer disease and prior GIB), chronic condition, present on admission, stable Hospital Course: Mariely Man is a 77-year-old female with a past medical history significant for rheumatoid arthritis on methotrexate and prednisone and GERD who presented to [facility] after a ground level fall complaining of back pain and found to have L2 compression fracture. 1. Acute pathological L2 vertebral compression fracture, present on admission. Active. -Patient presented after ground level fall with low back pain. -CT lumbar spine without contrast demonstrated acute L2 compression fracture and old L3 compression fracture. -Consulted orthopedic surgery who recommended continued pain control and no surgical intervention at this time. No bracing required. Postural reduction, limit bending and lifting. Recommended and scheduled follow-up at Dr. Coto office next week 11/05/2019 at 4:30 to discuss further treatment options of L2 compression fracture and recommend discussing treatment for osteoporosis with bisphosphonate versus other therapy. -Continued physical and occupational therapy evaluation treatment. -Continue vitamin D3 supplementation and calcium intake regularly. 2. Acute on chronic back pain, present on admission. Active. -Patient is chronic opiate user and has developed a tolerance to these medications, making it more difficult to control. -Continued pain control with: Calcitonin 1 intranasal spray daily for 2 weeks, Lidocaine patch daily, methocarbamol 500 mg 3 times daily as needed for muscle spasm, hydrocodone 10-325 mg every 4 hours and oxycodone 2.5 mg every 4 hours as needed for severe breakthrough pain ONLY. 3. Hyponatremia, chronic, present on admission. Stable. -Suspected to be in the setting of hypovolemia. Spirinolactone has been held. -Initial sodium level 132. Baseline sodium level ranges from 128 to 136. -Continued to monitor sodium level periodically. 4. Acute hypokalemia, not present on admission. Resolved. -Patient's potassium level 3.3. Likely secondary to GI losses patient has intermittent nausea and vomiting related to narcotic administration. -Received potassium chloride 40 mEq PO x1. 5. Rheumatoid arthritis, chronic, present on admission. Stable. -Continued home methotrexate 20 mg IM a every week on Friday and prednisone 10 mg daily. 6. GERD (h/o peptic ulcer disease and prior GIB), chronic condition, present on admission, stable -Continued omeprazole 40 mg daily and calcium carbonate 500 mg 4 times daily as needed. Exam Vital Signs (past 8 hours): - 11/01/19 04:06 Temperature 98.3 F Pulse Rate 84 Respiratory Rate 16 Blood Pressure 134/83 Pulse Oximetry 98 Oxygen Delivery Method Room Air Oxygen Flow Rate 0 Narrative Exam Narrative: General: Elderly thin frail female lying bed and appears comfortable, endorses fatigue, appropriately interactive. HEENT: Normocephalic, atraumatic. External ears without defect. Pupils equal, round, and reactive to light. Anicteric sclerae, moist conjunctivae, and no lid lag. Neck: Supple with full range of motion. No lymphadenopathy or thyromegaly. Cardiovascular: Regular rate and rhythm without murmurs, rubs, or gallops appreciated. Pulmonary: Clear to auscultation bilaterally without crackles, wheezes, or rhonchi. Normal respiratory effort with no use of accessory muscles. Abdomen: Soft, bowel sounds present, nontender, nondistended. No hepatosplenomegaly or masses appreciated. Extremities: No clubbing, cyanosis, or edema. RA changes in hands, knees, and feet bilaterally. Mild tenderness to palpation in lumbar spine. Skin: Normal temperature, turgor, and texture; no rash, ulcers, or subcutaneous nodules appreciated. Neurological: Cranial nerves grossly intact. Psychiatric: Normal mood and affect. Alert and oriented to person, place, and time. Objective Labs Result Diagrams: 11/01/19 05:10 11/01/19 05:10 Labs: Laboratory Results - last 24 hr 11/01/19 11/01/19 05:10 05:10 WBC 7.7 RBC 3.94 L Hgb 12.5 Hct 37.6 MCV 95.5 MCH 31.7 MCHC 33.1 RDW 15.3 H Plt Count 370 Neut % (Auto) 60.9 Lymph % (Auto) 25.8 [place] % (Auto) 11.2 Eos % (Auto) 1.7 L Baso % (Auto) 0.4 Neut # (Auto) 4700 Lymph # (Auto) 2000 [place] # (Auto) 900 Eos # (Auto) 100 Baso # (Auto) 0 Sodium 135 L Potassium 3.3 L Chloride 96 L Carbon Dioxide 32 BUN 9 Creatinine 0.50 L Estimated GFR > 60.0 BUN/Creatinine Ratio 18.0 Glucose 94 Calcium 9.2 Discharge Plan Discharge Plan Patient Disposition: SNF Under care of provider: director information security Discharge orders & Medications Prescriptions: New methocarbamol 500 mg Tablet 500 mg PO TID PRN (Reason: Muscle Spasm) Qty: 90 RF: 0 sennosides [senna] 8.6 mg Tablet 8.6 mg PO PRN PRN (Reason: Constipation) Qty: 30 RF: 0 polyethylene glycol 3350 17 gram Powder In Packet 17 gram PO DAILY Qty: 30 RF: 0 magnesium hydroxide [Milk of Magnesia] 400 mg/5 mL Suspension 30 ml PO DAILY PRN (Reason: Constipation) Qty: 3840 RF: 0 calcitonin (salmon) 200 unit/actuation [place],Non-Aerosol 1 spray intranasal DAILY Qty: 3.7 RF: 0 lidocaine 5 % Adhesive Patch,Medicated 1 patch topical BEDTIME Qty: 10 RF: 0 lidocaine 5 % Adhesive Patch,Medicated 1 patch topical DAILY Qty: 10 RF: 0 docusate sodium [DOK] 100 mg Capsule 100 mg PO BID Qty: 60 RF: 0 oxycodone 5 mg Tablet 2.5 mg PO Q4HR PRN (Reason: Pain, Moderate (4-6)) Qty: 10 RF: 0 bisacodyl 10 mg suppository 10 mg SD DAILY PRN (Reason: constipation) Qty: 10 RF: 0 Continued methotrexate sodium 25 mg/mL solution 0.8 ml IM QWEEK RF: 0 omeprazole 40 mg capsule,delayed release(DR/EC) 40 mg PO DAILY RF: 0 spironolactone 50 mg tablet 100 mg PO QAM RF: 0 nystatin 100,000 unit/gram Ointment 1 applic TOPICAL BID RF: 0 alendronate 70 mg tablet 70 mg PO QWEEK Qty: 4 RF: 0 prednisone 10 mg Tablet 10 mg PO DAILY 30 Days RF: 0 ondansetron HCl [Zofran] 4 mg Tablet 4 mg PO Q4H PRN (Reason: Nausea) RF: 0 nitrofurantoin macrocrystal [Macrodantin] 100 mg Capsule 100 mg PO Q12-24H RF: 0 codeine-guaifenesin [Guaifenesin AC] 10-100 mg/5 mL Liquid 2.5 ml PO Q4H PRN (Reason: Cough) RF: 0 folic acid 800 mcg Tablet 0.8 mg PO DAILY RF: 0 zoledronic [id number] [Reclast] 5 mg/100 mL Piggyback 5 mg IV PER PKG DIR RF: 0 cholecalciferol (vitamin D3) [Vitamin D3] 2,000 unit Tablet 2,000 unit PO DAILY RF: 0 hydrocodone-acetaminophen 10-325 mg Tablet 1 tab PO Q4H PRN (Reason: Back Pain) Qty: 60 RF: 0 Follow up/Referrals: Jesús Eric MD [Physician] - 11/05/19 4:30 am Alen Garsia MD [Primary Care Provider] - Diet/Activity/Treatments Diet: Diet as Tolerated, Low-fat, Low-sodium and Low-cholesterol Activity: Activity as tolerated with forward wheeled walker and physical and occupational therapy [facility] Reason for rehabilitation: Recovery r/t decondition and Other Rehab type: Physical therapy and Occupational therapy Discharge Data Primary Care Provider: Alen Garsia Quality VTE Deep Vein Thrombosis/Pulmonary Embolism Present on Admission: No
[2019-11-01] MEDS: BISACODYL 10 MG SUPP PR (09:13)
[2019-11-01] MEDS: MINERAL OIL 1 EACH ENEMA PR (10:25)
--- NOTE | 2019-11-01 11:12 | PC.NURSE ---
Addendum entered by Jt Stanford R.N. 11/01/19 12:31: Patient with large bowel movement post interventions. Care continues. Original Note: Nurse Note Patient without BM for multiple days. Discussed with hospitalist, multiple ordered and PRN stool softeners / GI motility agents / suppository / enema administered. Patient with some stool output per NAC. Care is ongoing.
--- NOTE | 2019-11-01 11:24 | PT-IP ANOTE ---
Pt refused therapy even though transportation to [facility] has been delayed until 1300. Pt stated she wanted to just lay in bed for now.
--- NOTE | 2019-11-01 12:17 | OT.IPNOTE ---
Attempted OT eval with pt , pt refusing as states just wanting to rest.
[2019-11-01] MEDS: HYDROCODONE/ACET 10/325 TABLET 1 TAB PO (12:19)
[2019-11-01] MEDS: POTASSIUM CHLORIDE 20 MEQ TAB 40 MEQ PO (14:41)
--- NOTE | 2019-11-01 15:01 | PC.NURSE ---
Addendum entered by Jt Stanford R.N. 11/01/19 15:30: Report called to MARIA FERNANDA France at [facility], all questions answered. Original Note: Orders for discharge to SNF were received. The patient was made aware of the plan for discharge and were agreeable to go. Information, including handouts, was sent with the patient including information on diagnosis, signs and symptoms to be aware of, new medications and follow-up directions. IV was removed intact. All belongings gathered and accompanied patient. The patient then ambulated to a wheelchair and was wheeled to the main entrance to a private vehicle. At the time of discharge the patient was alert and oriented, with no complaints of chest pain, shortness of breath, nausea, vomiting or other difficulty. Attempted to call report to receiving facility x2 with no answer, will attempt again.
== END 2019-11-01 13:00 | DRG 543 ==
LOC: ED 22:31 → AC 10-28 00:13
PROVIDERS: Internal Medicine; Admitting Provider Nurse Practitioner Gerontology; Emergency Provider Emergency Medicine; PCP Internal Medicine; Referring Provider Emergency Medicine; Visit Provider Nurse Practitioner Gerontology
DX: M80.88XA Other osteoporosis with current pathological fracture, vertebra(e), initial encounter for fracture (principal); E87.1 Hypo-osmolality and hyponatremia; M06.9 Rheumatoid arthritis, unspecified; K21.9 Gastro-esophageal reflux disease without esophagitis; Z79.52 Long term (current) use of systemic steroids; Z79.891 Long term (current) use of opiate analgesic; D64.9 Anemia, unspecified; Z87.891 Personal history of nicotine dependence; G89.11 Acute pain due to trauma
CPT/HCPCS: 36415; 72131; 72192; 80048; 81001; 83735; 84145; 85025; 96374; 96375; 97110; 97161; 97530; 99284; G0378; J1170; J1650; J2405; J2765

== ENCOUNTER → 2020-07-24 18:17 | Outpatient (ROUT) | payer MEDICARE, OTHER, SELFPAY ==
[2019-10-28 01:25] VITALS: BMI 17.5
[2020-07-24 18:43] LABS: Add Manual Diff / Slide Review NO; Basophils Absolute Auto 100 /uL (0-100); Basophils Percent Auto 0.6 % (0-2); Eosinophils Absolute Auto 0 /uL (0-450); Eosinophils Percent Auto 0.3 % (2-4); Hematocrit 39.3 % (36-46); Hemoglobin 13.1 g/dL (12.0-16.0); Lymphocytes Absolute Auto 1100 /uL (1100-4500); Lymphocytes Percent Auto 9.3 % (25-40); Mean Corpuscular HGB Conc 33.4 % (30-36); Mean Corpuscular Hemoglobin 32.4 PG (26-34); Mean Corpuscular Volume 96.9 fL (80-100); Monocytes Absolute Auto 1500 /uL (0-900); Monocytes Percent Auto 12.4 % (3-14); Neutrophils Absolute Auto 9300 /uL (1500-7000); Neutrophils Percent Auto 77.4 % (50-75); Platelet Count 362 X10^3/uL (150-400); Red Blood Cell Count 4.05 X10^6/uL (4.0-5.2); Red Cell Distribution Width 14.4 % (11.6-14.8)
[2020-07-24 18:44] LABS: Alanine Aminotransferase 13 IU/L (<35); Albumin 4.2 g/dL (3.5-5.0); Albumin Globulin Ratio 1.7 (1.0-2.8); Alkaline Phosphatase 88 U/L (38-126); Aspartate Aminotransferase 35 IU/L (14-36); BUN Creatinine Ratio 16.1 (6-22); Bilirubin Total 0.8 mg/dL (0.2-1.3); Blood Urea Nitrogen 10 mg/dL (7-17); Calcium 9.5 mg/dL (8.4-10.2); Carbon Dioxide 28 mmol/L (22-32); Chloride 90 mmol/L (98-107); Estimated Glomerular Filt Rate > 60.0 mL/min (>60); Globulin 2.5 g/dL (1.7-4.1); Glucose 98 mg/dL (80-110); HEMOLYSIS 22 (0-50); Potassium 4.5 mmol/L (3.4-5.1); Sodium 125 mmol/L (137-145); Total Protein 6.7 g/dL (6.3-8.2)
== END ==
PROVIDERS: PCP Internal Medicine; Visit Provider Physician Assistant
DX: R11.0 Nausea (principal); R11.2 Nausea with vomiting, unspecified; R63.4 Abnormal weight loss
CPT/HCPCS: 80053; 85025

== ENCOUNTER 2020-07-27 15:40 | Emergency (ER) | payer MEDICARE, OTHER, SELFPAY ==
[2019-10-28 01:25] VITALS: BMI 17.5
[2020-07-27] VITALS (11 sets, daily range): BP systolic 123–154; BP diastolic 60–84; PULSE 97–117; RESP 12–17; TEMP 37.6; O2SAT 96–99; BMI 17.7
--- NOTE | 2020-07-27 15:43 | DI.CT.S_ITS ---
PROCEDURE: CT ABDOMEN PELVIS W CON INDICATIONS: vomiting, nausea, lower abd pain TECHNIQUE: After the administration of intravenous contrast, 5 mm thick sections acquired from the diaphragm to the symphysis. 5 mm coronal and sagittal reformats were acquired. For radiation dose reduction, the following was used: automated exposure control, adjustment of mA and/or kV according to patient size. COMPARISON: [facility], CT, CT PEL WO CON, 10/27/2019, 23:07. [facility], CT, CT LUMBAR SPINE WO CON, 10/27/2019, 23:07. [facility], CT, ABDOMEN/PELVIS WITH CONTRAST, 03/22/2014, 10:58. FINDINGS: Image quality: Excellent. ABDOMEN: Lung bases: Mild scarring or atelectasis is seen in the lung bases. Heart size is normal. Mitral annular calcifications are noted. Solid organs: Liver is normal in size and enhancement. Gallbladder appears normal. Biliary system is non dilated. Pancreas enhances normally. Spleen is normal in size and enhancement. No adrenal nodules. Kidneys demonstrate normal size and enhancement, without hydronephrosis. Peritoneum and bowel: Multiple diverticula are seen in the bowel without signs of acute diverticulitis. There are no signs of bowel obstruction. A small hiatal hernia is present. There is no significant ascites or pneumoperitoneum. Nodes and vessels: No retroperitoneal or mesenteric adenopathy by size criteria. Aorta and inferior vena cava are normal in size. Dilated and tortuous left gonadal vein is noted. Moderate atherosclerotic calcifications are seen in the aorta. Miscellaneous: No ventral hernias. PELVIS: Genitourinary: Bladder wall thickness is normal. Status post hysterectomy. Miscellaneous: No inguinal hernias or adenopathy. Bones: Postsurgical changes are seen from left hip arthroplasty with intact hardware. 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 Additional chronic fractures are seen in the left inferior pubic ramus. Chronic compression fractures are seen in the L2 and L3 vertebra with progressive loss of vertebral body height at L2 when compared to the CT from 10/27/2019, now measuring up to 70 percent. There is also a mild age indeterminate compression fracture in the superior L4 vertebral body that is new when compared to the prior CT, with approximately 25 percent loss of vertebral body height. Grade 1 anterolisthesis of L4 on L5 is again seen. IMPRESSION: 1. No acute inflammatory changes are seen in the abdomen or pelvis. No signs of bowel obstruction. 2. Mild compression deformity of the L4 superior endplate is new when compared to the prior CT is from 10/27/2019. Chronic compression fractures of L2 and L3 are redemonstrated, with increased collapse of the L2 seer peer endplate, now with up to 70 percent loss of vertebral body height. 3. Chronic fractures of the body and inferior ramus of the left pubic bone. 4. Colonic diverticulosis without signs of acute diverticulitis. Dictated by: Denny Tran M.D. on 07/27/2020 at 16:36 Approved by: Denny Tran M.D. on 07/27/2020 at 16:55
--- NOTE | 2020-07-27 15:46 | ED_ITS ---
HPI - Abdominal Pain <Yoonfrancisca Bocanegra, - Last Filed: 07/31/20 08:06> General Chief Complaint: Abdominal Pain Stated Complaint: Abdominal Pain Time Seen by Provider: 07/27/20 15:43 Source: patient and EMS Mode of arrival: EMS Limitations: no limitations History of Present Illness HPI narrative: This is an 79-year-old female who states that she has been having nausea and vomiting and abdominal pain for about 10 days. She saw her primary care physician yesterday and had IM medication, she is not sure of the name but she is not improved. She has not had fevers but she has felt chilled i ntermittently. She complains of nausea and some lower abdominal discomfort but does not describe it as pain specifically. She states she has been throwing up intermittently had difficulty keeping down fluids and food. She states it looks greenish and yellow. She has not had any chest pain or shortness of breath. She denies any urinary, frequency, dysuria urgency. She has had some loose stools but no diarrhea, she denies black or bloody stools. She has been having regular bowel movements. Related Data Home Medications Medication Instructions Recorded Confirmed methotrexate sodium 0.8 ml IM QWEEK 09/29/18 10/29/19 nystatin 1 applic TOPICAL BID 09/29/18 09/15/19 omeprazole 40 mg PO DAILY 09/29/18 10/28/19 spironolactone 100 mg PO QAM 09/29/18 10/28/19 cholecalciferol (vitamin D3) 2,000 unit PO DAILY 10/28/19 10/28/19 [Vitamin D3] codeine-guaifenesin [Guaifenesin 2.5 ml PO Q4H PRN 10/28/19 10/28/19 AC] folic acid 0.8 mg PO DAILY 10/28/19 10/28/19 nitrofurantoin macrocrystal 100 mg PO Q12-24H 10/28/19 10/28/19 [Macrodantin] ondansetron HCl [Zofran] 4 mg PO Q4H PRN 10/28/19 10/28/19 zoledronic plof-uhkydrac-bfimz 5 mg IV PER PKG DIR 10/28/19 10/28/19 [Reclast] Previous Rx's Medication Instructions Recorded alendronate 70 mg PO QWEEK #4 tab 10/04/18 bisacodyl 10 mg IA DAILY PRN #10 each 11/01/19 calcitonin (salmon) 1 spray INTRANASAL DAILY #3.7 ml 11/01/19 docusate sodium [DOK] 100 mg PO BID #60 cap 11/01/19 hydrocodone-acetaminophen 1 tab PO Q4H PRN #60 tab 11/01/19 lidocaine 1 patch TOPICAL BEDTIME #10 ea 11/01/19 lidocaine 1 patch TOPICAL DAILY #10 ea 11/01/19 magnesium hydroxide [Milk of 30 ml PO DAILY PRN #3840 ml 11/01/19 Magnesia] methocarbamol 500 mg PO TID PRN #90 tab 11/01/19 oxycodone 2.5 mg PO Q4HR PRN #10 tab 11/01/19 polyethylene glycol 3350 17 gram PO DAILY #30 each 11/01/19 sennosides [senna] 8.6 mg PO PRN PRN #30 tab 11/01/19 meclizine 25 mg PO DAILY PRN #20 tab 07/27/20 Allergies Allergy/AdvReac Type Severity Reaction Status Date / Time codeine Allergy Verified 07/27/20 15:51 morphine AdvReac Severe Vomiting Verified 10/02/18 07:51 meperidine [MEPERIDINE] AdvReac Unknown VOMITING Verified 10/02/18 07:51 oxycodone [OXYCODONE] AdvReac Unknown NAUSEA Verified 09/29/18 13:53 Review of Systems <Yoon Bocanegra DO - Last Filed: 07/31/20 08:06> Review of Systems ROS Unobtainable: All systems reviewed & are unremarkable except as noted in HPI and below Patient History <Yoon Bocanegra DO - Last Filed: 07/31/20 08:06> Medical History (Updated 07/27/20 @ 20:13 by Irma Hutchinson MD) GERD (gastroesophageal reflux disease) Peripheral edema Rheumatoid arthritis Surgical History History of hand surgery History of total left knee replacement History of total right knee replacement Status post total hip replacement, left Status post wrist surgery Family History Mother No problems noted. Father No problems noted. Social History household members: spouse Smoking Status: Never smoker alcohol intake: current Smoking Status: Never smoker alcohol intake frequency: holidays/special occasions only Substance Use Type: does not use Exam <Yoon Bocanegra DO - Last Filed: 07/31/20 08:06> Narrative Exam Narrative: GENERAL: Alert and oriented x three, thin elderly female in [id number] distress. Patient initially was well but started having emesis in the room. HEENT: Head normocephalic, atraumatic, EOMI, pupils reactive, face symmetric, moist mucous membranes NECK: Supple, full range of motion CARDIOVASCULAR: Regular rate and rhythm without murmurs, rubs or gallops. RESPIRATORY: Breath sounds equal bilaterally, no wheezes rales or rhonchi. ABDOMEN: Soft, nontender. Normoactive bowel sounds all 4 quadrants. No guarding or rebound, rigidity, no mass : No CVA tenderness EXTREMITIES: Normal range of motion, except for left wrist. no clubbing or edema. Neurovascularly intact NEUROLOGICAL: Cranial nerves II through XII grossly intact. Moving all extremities SKIN: Warm, dry, no petechiae, no rashes or lesions. Initial Vital Signs Initial Vital Signs: Vital Signs Temperature 99.7 F H 07/27/20 15:44 Pulse Rate 103 H 07/27/20 15:44 Respiratory Rate 17 07/27/20 15:44 Blood Pressure 138/67 07/27/20 15:44 Pulse Oximetry 99 07/27/20 15:44 <Irma Hutchinson MD - Last Filed: 07/27/20 20:14> Initial Vital Signs Initial Vital Signs: Vital Signs Temperature 99.7 F H 07/27/20 15:44 Pulse Rate 103 H 07/27/20 15:44 Respiratory Rate 17 07/27/20 15:44 Blood Pressure 138/67 07/27/20 15:44 Pulse Oximetry 99 07/27/20 15:44 Course <Yoon Bocanegra DO - Last Filed: 07/31/20 08:06> Orders Ordered: Discontinued Medications Sodium Chloride (Normal Saline 0.9%) 1,000 mls @ 1,000 mls/hr IV BOLUS ONE Stop: 07/27/20 16:42 Last Infusion: 07/27/20 18:16 Dose: 0 mls/hr Documented by: Admin: 07/27/20 16:00 Dose: 1,000 mls/hr Documented by: CHELSEA Meclizine HCl (Antivert) 25 mg PO NOW ONE Stop: 07/27/20 19:33 Last Admin: 07/27/20 19:35 Dose: 25 mg Documented by: CHELSEA Ondansetron HCl (Zofran) 4 mg IV NOW ONE Stop: 07/27/20 15:44 Last Admin: 07/27/20 16:00 Dose: 4 mg Documented by: CHELSEA Reevaluation(s) Reevaluation #1: Patient is feeling better after zofran and getting some fluids. Updated on labs, awaiting urine sample to check for infection. Time: 17:32 Vital Signs Vital signs: Vital Signs - 8 hr 07/27/20 15:44 07/27/20 16:00 07/27/20 16:33 Temperature 99.7 F H Pulse Rate 103 H 97 H 117 H Respiratory Rate 17 12 12 Blood Pressure 138/67 131/62 154/74 H Pulse Oximetry 99 97 98 07/27/20 16:38 07/27/20 17:00 07/27/20 17:30 Temperature Pulse Rate 105 H 99 H 100 H Respiratory Rate 12 16 16 Blood Pressure 137/63 136/66 Pulse Oximetry 97 97 97 07/27/20 18:00 07/27/20 18:22 07/27/20 18:30 Temperature Pulse Rate 101 H 109 H 105 H Respiratory Rate 15 17 13 Blood Pressure 144/66 H 150/71 H 123/60 Pulse Oximetry 97 96 97 07/27/20 19:00 07/27/20 19:30 Temperature Pulse Rate 97 H 101 H Respiratory Rate 16 13 Blood Pressure 140/67 142/84 H Pulse Oximetry 97 99 <Irma Hutchinson MD - Last Filed: 07/27/20 20:14> Orders Ordered: Discontinued Medications Sodium Chloride (Normal Saline 0.9%) 1,000 mls @ 1,000 mls/hr IV BOLUS ONE Stop: 07/27/20 16:42 Last Infusion: 07/27/20 18:16 Dose: 0 mls/hr Documented by: Admin: 07/27/20 16:00 Dose: 1,000 mls/hr Documented by: CHELSEA Meclizine HCl (Antivert) 25 mg PO NOW ONE Stop: 07/27/20 19:33 Last Admin: 07/27/20 19:35 Dose: 25 mg Documented by: CHELSEA Ondansetron HCl (Zofran) 4 mg IV NOW ONE Stop: 07/27/20 15:44 Last Admin: 07/27/20 16:00 Dose: 4 mg Documented by: CHELSEA Vital Signs Vital signs: Vital Signs - 8 hr 07/27/20 15:44 07/27/20 16:00 07/27/20 16:33 Temperature 99.7 F H Pulse Rate 103 H 97 H 117 H Respiratory Rate 17 12 12 Blood Pressure 138/67 131/62 154/74 H Pulse Oximetry 99 97 98 07/27/20 16:38 07/27/20 17:00 07/27/20 17:30 Temperature Pulse Rate 105 H 99 H 100 H Respiratory Rate 12 16 16 Blood Pressure 137/63 136/66 Pulse Oximetry 97 97 97 07/27/20 18:00 07/27/20 18:22 07/27/20 18:30 Temperature Pulse Rate 101 H 109 H 105 H Respiratory Rate 15 17 13 Blood Pressure 144/66 H 150/71 H 123/60 Pulse Oximetry 97 96 97 07/27/20 19:00 07/27/20 19:30 Temperature Pulse Rate 97 H 101 H Respiratory Rate 16 13 Blood Pressure 140/67 142/84 H Pulse Oximetry 97 99 MDM - Abdominal Pain <Yoon Bocanegra DO - Last Filed: 07/31/20 08:06> Lab Data Attestation: I reviewed the patient's lab results. Result diagrams: 07/27/20 15:47 07/27/20 15:47 Labs: Lab Results 07/27/20 07/27/20 07/27/20 Range/Units 15:47 15:47 15:47 WBC 7.8 (4.5-11.0) X10^3/uL RBC 3.99 L (4.0-5.2) X10^6/uL Hgb 13.1 (12.0-16.0) g/dL Hct 38.5 (36-46) % MCV 96.6 (80-100) fL MCH 32.8 (26-34) PG MCHC 34.0 (30-36) % RDW 14.2 (11.6-14.8) % Plt Count 274 (150-400) X10^3/uL Neut % (Auto) 74.2 (50-75) % Lymph % (Auto) 10.1 L (25-40) % [place] % (Auto) 15.0 H (3-14) % Eos % (Auto) 0.1 L (2-4) % Baso % (Auto) 0.6 (0-2) % Neut # (Auto) 5800 (7465-0395) /uL Lymph # (Auto) 800 L (3911-2099) /uL [place] # (Auto) 1200 H (0-900) /uL Eos # (Auto) 0 (0-450) /uL Baso # (Auto) 0 (0-100) /uL Sodium 130 L (137-145) mmol/L Potassium 3.7 (3.4-5.1) mmol/L Chloride 92 L (98-107) mmol/L Carbon Dioxide 32 (22-32) mmol/L BUN 5 L (7-17) mg/dL Creatinine 0.56 (0.52-1.04) mg/dL Estimated GFR > 60.0 (>60) mL/min BUN/Creatinine Ratio 8.9 (6-22) Glucose 98 (80-110) mg/dL Lactate 1.4 (0.7-2.1) mmol/L Calcium 9.1 (8.4-10.2) mg/dL Total Bilirubin 0.6 (0.2-1.3) mg/dL AST 39 H (14-36) IU/L ALT 14 (<35) IU/L Alkaline Phosphatase 92 (38-126) U/L Total Creatine Kinase 84 (30-135) U/L CK-MB (CK-2) TNP CK-MB (CK-2) Rel Index TNP Troponin I < 0.012 (0.01-0.034) ng/mL Total Protein 7.0 (6.3-8.2) g/dL Albumin 4.1 (3.5-5.0) g/dL Globulin 2.9 (1.7-4.1) g/dL Albumin/Globulin Ratio 1.4 (1.0-2.8) Lipase 31 (23-300) U/L Procalcitonin (<0.5) ng/mL Urine RBC (0-5/HPF) Urine WBC (0-5/HPF) Urine Bacteria (None) Ur Culture Indicated? COVID-19 PCR (Negative) 07/27/20 07/27/20 07/27/20 Range/Units 15:47 16:08 18:21 WBC (4.5-11.0) X10^3/uL RBC (4.0-5.2) X10^6/uL Hgb (12.0-16.0) g/dL Hct (36-46) % MCV (80-100) fL MCH (26-34) PG MCHC (30-36) % RDW (11.6-14.8) % Plt Count (150-400) X10^3/uL Neut % (Auto) (50-75) % Lymph % (Auto) (25-40) % [place] % (Auto) (3-14) % Eos % (Auto) (2-4) % Baso % (Auto) (0-2) % Neut # (Auto) (5700-7782) /uL Lymph # (Auto) (5571-3859) /uL [place] # (Auto) (0-900) /uL Eos # (Auto) (0-450) /uL Baso # (Auto) (0-100) /uL Sodium (137-145) mmol/L Potassium (3.4-5.1) mmol/L Chloride (98-107) mmol/L Carbon Dioxide (22-32) mmol/L BUN (7-17) mg/dL Creatinine (0.52-1.04) mg/dL Estimated GFR (>60) mL/min BUN/Creatinine Ratio (6-22) Glucose (80-110) mg/dL Lactate (0.7-2.1) mmol/L Calcium (8.4-10.2) mg/dL Total Bilirubin (0.2-1.3) mg/dL AST (14-36) IU/L ALT (<35) IU/L Alkaline Phosphatase (38-126) U/L Total Creatine Kinase (30-135) U/L CK-MB (CK-2) CK-MB (CK-2) Rel Index Troponin I (0.01-0.034) ng/mL Total Protein (6.3-8.2) g/dL Albumin (3.5-5.0) g/dL Globulin (1.7-4.1) g/dL Albumin/Globulin Ratio (1.0-2.8) Lipase (23-300) U/L Procalcitonin 0.05 (<0.5) ng/mL Urine RBC 0-1/hpf (0-5/HPF) Urine WBC 0-1/hpf (0-5/HPF) Urine Bacteria None seen (None) Ur Culture Indicated? Cult not indicated COVID-19 PCR Negative (Negative) Point of care testing: Urine Dip Bedside Urine Glucose Negative Bedside Urine Bilirubin - Negative Bedside Urine Ketone +++ 80 Urine Specific [place] 1.015 Bedside Urine Occult Blood ++ Bedside Urine pH 6.0 Bedside Urine Protein - Negative Bedside Urine Urobilinogen - Negative Bedside Urine Nitrite - Negative Bedside Urine Leukocytes - Negative Esterase Imaging Data CT scan - abdomen/pelvis: Radiologist's Impression: [address] [address] [address] Scan Report Signed Patient: Mariely Man EMR#: [id number] : 1940Acct:[id number] Age/Sex: 79 / FDate of Service: 07/27/20 Loc: ED Accession Number: [id number] Procedure: CT abdomen pelvis w con Ordering Provider: Yoon Bocanegra D.O. PROCEDURE: CT ABDOMEN PELVIS W CON INDICATIONS: vomiting, nausea, lower abd pain TECHNIQUE: After the administration of intravenous contrast, 5 mm thick sections acquired from the diaphragm to the symphysis. 5 mm coronal and sagittal reformats were acquired. For radiation dose reduction, the following was used: automated exposure control, adjustment of mA and/or kV according to patient size. COMPARISON: [facility], CT, CT PEL WO CON, 10/27/2019, 23:07. [facility], CT, CT LUMBAR SPINE WO CON, 10/27/2019, 23:07. [facility], CT, ABDOMEN/PELVIS WITH CONTRAST, 03/22/2014, 10:58. FINDINGS: Image quality: Excellent. ABDOMEN: Lung bases: Mild scarring or atelectasis is seen in the lung bases. Heart size is normal. Mitral annular calcifications are noted. Solid organs: Liver is normal in size and enhancement. Gallbladder appears normal. Biliary system is non dilated. Pancreas enhances normally. Spleen is normal in size and enhancement. No adrenal nodules. Kidneys demonstrate normal size and enhancement, without hydronephrosis. Peritoneum and bowel: Multiple diverticula are seen in the bowel without signs of acute diverticulitis. There are no signs of bowel obstruction. A small hiatal hernia is present. There is no significant ascites or pneumoperitoneum. Nodes and vessels: No retroperitoneal or mesenteric adenopathy by size criteria. Aorta and inferior vena cava are normal in size. Dilated and tortuous left gonadal vein is noted. Moderate atherosclerotic calcifications are seen in the aorta. Miscellaneous: No ventral hernias. PELVIS: Genitourinary: Bladder wall thickness is normal. Status post hysterectomy. Miscellaneous: No inguinal hernias or adenopathy. Bones: Postsurgical changes are seen from left hip arthroplasty with intact hardware. 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 Additional chronic fractures are seen in the left inferior pubic ramus. Chronic compression fractures are seen in the L2 and L3 vertebra with progressive loss of vertebral body height at L2 when compared to the CT from 10/27/2019, now measuring up to 70 percent. There is also a mild age indeterminate compression fracture in the superior L4 vertebral body that is new when compared to the prior CT, with approximately 25 percent loss of vertebral body height. Grade 1 anterolisthesis of L4 on L5 is again seen. IMPRESSION: 1. No acute inflammatory changes are seen in the abdomen or pelvis. No signs of bowel obstruction. 2. Mild compression deformity of the L4 superior endplate is new when compared to the prior CT is from 10/27/2019. Chronic compression fractures of L2 and L3 are redemonstrated, with increased collapse of the L2 seer peer endplate, now with up to 70 percent loss of vertebral body height. 3. Chronic fractures of the body and inferior ramus of the left pubic bone. 4. Colonic diverticulosis without signs of acute diverticulitis. Dictated by: Denny Tran M.D. on 07/27/2020 at 16:36 Approved by: Denny Tran M.D. on 07/27/2020 at 16:55 ECG Data Attestation: I personally reviewed and interpreted this ECG as follows: Interpretation: Sinus rhythm, rate of 100, IA 190, QRS [address] QTC [address] No significant ST segment changes appreciated. MDM Narrative Medical decision making narrative: Patient comes in with complaint of multiple days of vomiting. Patient did see her primary care and receive some sort of injectable medication. They are also stopping her spironolactone because her sodium was quite low at 125. Patient is hyponatremic but improved from the night. Chloride is 92, BUN is 5 with no major changes in her renal function. AST is 39, troponin is negative with a negative procalcitonin. COVID is negative. Patient's abdominal CT does not show any findings that would elucidate the cause of her vomiting. After re-evaluation patient notes that it is worse with movement and when re-evaluated movement of her head significantly worsens her symptoms. She does not have any other neurologic changes. Vertigo now suspected as cause of her symptoms but she has not had similar in the past per patient and plan for Head CT for further workup. Patient signed out to Dr. Hutchinson while awaiting results. <Irma Hutchinson MD - Last Filed: 07/27/20 20:14> Medical Records Attestation: I reviewed the patient's medical records. Lab Data Attestation: I reviewed the patient's lab results. Labs: Lab Results 07/27/20 07/27/20 07/27/20 Range/Units 15:47 15:47 15:47 WBC 7.8 (4.5-11.0) X10^3/uL RBC 3.99 L (4.0-5.2) X10^6/uL Hgb 13.1 (12.0-16.0) g/dL Hct 38.5 (36-46) % MCV 96.6 (80-100) fL MCH 32.8 (26-34) PG MCHC 34.0 (30-36) % RDW 14.2 (11.6-14.8) % Plt Count 274 (150-400) X10^3/uL Neut % (Auto) 74.2 (50-75) % Lymph % (Auto) 10.1 L (25-40) % [place] % (Auto) 15.0 H (3-14) % Eos % (Auto) 0.1 L (2-4) % Baso % (Auto) 0.6 (0-2) % Neut # (Auto) 5800 (3304-3581) /uL Lymph # (Auto) 800 L (0022-0031) /uL [place] # (Auto) 1200 H (0-900) /uL Eos # (Auto) 0 (0-450) /uL Baso # (Auto) 0 (0-100) /uL Sodium 130 L (137-145) mmol/L Potassium 3.7 (3.4-5.1) mmol/L Chloride 92 L (98-107) mmol/L Carbon Dioxide 32 (22-32) mmol/L BUN 5 L (7-17) mg/dL Creatinine 0.56 (0.52-1.04) mg/dL Estimated GFR > 60.0 (>60) mL/min BUN/Creatinine Ratio 8.9 (6-22) Glucose 98 (80-110) mg/dL Lactate 1.4 (0.7-2.1) mmol/L Calcium 9.1 (8.4-10.2) mg/dL Total Bilirubin 0.6 (0.2-1.3) mg/dL AST 39 H (14-36) IU/L ALT 14 (<35) IU/L Alkaline Phosphatase 92 (38-126) U/L Total Creatine Kinase 84 (30-135) U/L CK-MB (CK-2) TNP CK-MB (CK-2) Rel Index TNP Troponin I < 0.012 (0.01-0.034) ng/mL Total Protein 7.0 (6.3-8.2) g/dL Albumin 4.1 (3.5-5.0) g/dL Globulin 2.9 (1.7-4.1) g/dL Albumin/Globulin Ratio 1.4 (1.0-2.8) Lipase 31 (23-300) U/L Procalcitonin (<0.5) ng/mL Urine RBC (0-5/HPF) Urine WBC (0-5/HPF) Urine Bacteria (None) Ur Culture Indicated? COVID-19 PCR (Negative) 07/27/20 07/27/20 07/27/20 Range/Units 15:47 16:08 18:21 WBC (4.5-11.0) X10^3/uL RBC (4.0-5.2) X10^6/uL Hgb (12.0-16.0) g/dL Hct (36-46) % MCV (80-100) fL MCH (26-34) PG MCHC (30-36) % RDW (11.6-14.8) % Plt Count (150-400) X10^3/uL Neut % (Auto) (50-75) % Lymph % (Auto) (25-40) % [place] % (Auto) (3-14) % Eos % (Auto) (2-4) % Baso % (Auto) (0-2) % Neut # (Auto) (5701-5933) /uL Lymph # (Auto) (9986-5650) /uL [place] # (Auto) (0-900) /uL Eos # (Auto) (0-450) /uL Baso # (Auto) (0-100) /uL Sodium (137-145) mmol/L Potassium (3.4-5.1) mmol/L Chloride (98-107) mmol/L Carbon Dioxide (22-32) mmol/L BUN (7-17) mg/dL Creatinine (0.52-1.04) mg/dL Estimated GFR (>60) mL/min BUN/Creatinine Ratio (6-22) Glucose (80-110) mg/dL Lactate (0.7-2.1) mmol/L Calcium (8.4-10.2) mg/dL Total Bilirubin (0.2-1.3) mg/dL AST (14-36) IU/L ALT (<35) IU/L Alkaline Phosphatase (38-126) U/L Total Creatine Kinase (30-135) U/L CK-MB (CK-2) CK-MB (CK-2) Rel Index Troponin I (0.01-0.034) ng/mL Total Protein (6.3-8.2) g/dL Albumin (3.5-5.0) g/dL Globulin (1.7-4.1) g/dL Albumin/Globulin Ratio (1.0-2.8) Lipase (23-300) U/L Procalcitonin 0.05 (<0.5) ng/mL Urine RBC 0-1/hpf (0-5/HPF) Urine WBC 0-1/hpf (0-5/HPF) Urine Bacteria None seen (None) Ur Culture Indicated? Cult not indicated COVID-19 PCR Negative (Negative) Point of care testing: Urine Dip Bedside Urine Glucose Negative Bedside Urine Bilirubin - Negative Bedside Urine Ketone +++ 80 Urine Specific [place] 1.015 Bedside Urine Occult Blood ++ Bedside Urine pH 6.0 Bedside Urine Protein - Negative Bedside Urine Urobilinogen - Negative Bedside Urine Nitrite - Negative Bedside Urine Leukocytes - Negative Esterase Imaging Data CT scan - abdomen/pelvis: Radiologist's Impression: FINDINGS: Image quality: Excellent. ABDOMEN: Lung bases: Mild scarring or atelectasis is seen in the lung bases. Heart size is normal. Mitral annular calcifications are noted. Solid organs: Liver is normal in size and enhancement. Gallbladder appears normal. Biliary system is non dilated. Pancreas enhances normally. Spleen is normal in size and enhancement. No adrenal nodules. Kidneys demonstrate normal size and enhancement, without hydronephrosis. Peritoneum and bowel: Multiple diverticula are seen in the bowel without signs of acute diverticulitis. There are no signs of bowel obstruction. A small hiatal hernia is present. There is no significant ascites or pneumoperitoneum. Nodes and vessels: No retroperitoneal or mesenteric adenopathy by size criteria. Aorta and inferior vena cava are normal in size. Dilated and tortuous left gonadal vein is noted. Moderate atherosclerotic calcifications are seen in the aorta. Miscellaneous: No ventral hernias. PELVIS: Genitourinary: Bladder wall thickness is normal. Status post hysterectomy. Miscellaneous: No inguinal hernias or adenopathy. Bones: Postsurgical changes are seen from left hip arthroplasty with intact hardware. 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 Additional chronic fractures are seen in the left inferior pubic ramus. Chronic compression fractures are seen in the L2 and L3 vertebra with progressive loss of vertebral body height at L2 when compared to the CT from 10/27/2019, now measuring up to 70 percent. There is also a mild age indeterminate compression fracture in the superior L4 vertebral body that is new when compared to the prior CT, with approximately 25 percent loss of vertebral body height. Grade 1 anterolisthesis of L4 on L5 is again seen. IMPRESSION: 1. No acute inflammatory changes are seen in the abdomen or pelvis. No signs of bowel obstruction. 2. Mild compression deformity of the L4 superior endplate is new when compared to the prior CT is from 10/27/2019. Chronic compression fractures of L2 and L3 are redemonstrated, with increased collapse of the L2 seer peer endplate, now with up to 70 percent loss of vertebral body height. 3. Chronic fractures of the body and inferior ramus of the left pubic bone. 4. Colonic diverticulosis without signs of acute diverticulitis. Dictated by: Denny Tran M.D. on 07/27/2020 at 16:36 CT scan - head: Radiologist's Impression: FINDINGS: Image quality: Excellent. CSF spaces: Basal cisterns are patent. No extra-axial fluid collections. The ventricles are symmetric in size and shape. Brain: No intracranial bleeds or masses. There is cerebral volume loss for age, with resultant ventricular and sulcal prominence. There are periventricular and deep white matter chronic small vessel ischemic changes. There is intracranial internal carotid artery atherosclerosis. Skull and face: Calvarium and visualized facial bones appear intact, without suspicious lesions. Tip of the odontoid process projects approximately 2 millimeters into the foramen magnum compatible with basilar invagination. Tip of the odontoid proc ess produces mild mass effect on the lower medulla in the upper cervical spinal cord. Sinuses: Visualized sinuses and mastoids are clear. IMPRESSION: 1. No acute intracranial disease process. 2. Basilar invagination. Dictated by: Sheri Morales MD, PhD on 07/27/2020 at 18:53 ECG Data Attestation: I personally reviewed and interpreted this ECG as follows: Interpretation: Sinus through rhythm at a rate of 100 Borderline leftward axis Normal intervals No ST T wave changes, no ischemia MDM Narrative Medical decision making narrative: 79-year-old woman who presents with 10 days of nausea and vomiting along with abdominal pain. Initial workup reveals her mild recent hyponatremia seems to be improving nicely after the spironolactone was discontinued by her primary care physician couple of days ago. CT scan of the abdomen did not show any acute findings. On re-evaluation and with further questioning she is complaining more of vertiginous symptoms simply when she moves her head much more consistent with the vertigo causing the nausea and vomiting rather than and abdominal primary etiology. She is increasingly weak and quite unsteady with the vertigo. CT scan of the brain does not suggest any acute findings. Aside from the vertigo and the unsteadiness exacerbated by this she does not have any acute neurologic findings to suggest stroke. 730pm patient is re-evaluated. Results of labs in all CTs reviewed with both she and her . She is actually feeling quite a bit better and they would prefer to go home at this time. Will give her meclizine, an oral challenge and a road test and all of those are passed will arrange for discharge home. She is feeling better, walking steadily and safe for home discharge at this time. Discharge Plan Departure Patient Disposition: Home Clinical Impression: Benign positional vertigo Qualifiers: Laterality: unspecified laterality Qualified Code(s): H81.10 - Benign paroxysmal vertigo, unspecified ear Nausea & vomiting Qualifiers: Vomiting type: unspecified Vomiting Intractability: non-intractable Qualified Code(s): R11.2 - Nausea with vomiting, unspecified Instructions: DI for Benign Paroxysmal Positional Vertigo Activity Restrictions/Additional Instructions: Thank you for coming in today. I am glad you are feeling better. You had a thorough workup in the emergency department and there is no evidence of acute bacterial infection. Your low sodium level has improved nicely, there are no masses/tumors/abnormalities on your abdominal CT scan. There is no evidence of a stroke on your head CT scan. With the worsening of the dizziness when your moving your head and changing positions the most likely diagnosis at this point is benign positional vertigo. I have given you a prescription for meclizine to help if you have any of the dizziness returning. This was electronically transmitted to [facility] for you today It is possible that a virus could have started all of this and caused the dizziness as well. If that is the case, then you clearly are improving and should feel significantly better within 2-3 days. If you have any questions this evening you can call the emergency room and I am happy to help If you have numbness, tingling notice that part of your body is not working right or your not able to speak or began vomiting and can not stop than you need to return to the emergency department for further evaluation. Prescriptions: New meclizine 25 mg tablet 25 mg PO DAILY PRN (Reason: dizziness) Qty: 20 RF: 0 No Action methotrexate sodium 25 mg/mL solution 0.8 ml IM QWEEK RF: 0 omeprazole 40 mg capsule,delayed release(DR/EC) 40 mg PO DAILY RF: 0 spironolactone 50 mg tablet 100 mg PO QAM RF: 0 nystatin 100,000 unit/gram Ointment 1 applic TOPICAL BID RF: 0 alendronate 70 mg tablet 70 mg PO QWEEK Qty: 4 RF: 0 ondansetron HCl [Zofran] 4 mg Tablet 4 mg PO Q4H PRN (Reason: Nausea) RF: 0 nitrofurantoin macrocrystal [Macrodantin] 100 mg Capsule 100 mg PO Q12-24H RF: 0 codeine-guaifenesin [Guaifenesin AC] 10-100 mg/5 mL Liquid 2.5 ml PO Q4H PRN (Reason: Cough) RF: 0 folic acid 800 mcg Tablet 0.8 mg PO DAILY RF: 0 zoledronic ddug-pvlhwbow-riauy [Reclast] 5 mg/100 mL Piggyback 5 mg IV PER PKG DIR RF: 0 cholecalciferol (vitamin D3) [Vitamin D3] 2,000 unit Tablet 2,000 unit PO DAILY RF: 0 methocarbamol 500 mg Tablet 500 mg PO TID PRN (Reason: Muscle Spasm) Qty: 90 RF: 0 sennosides [senna] 8.6 mg Tablet 8.6 mg PO PRN PRN (Reason: Constipation) Qty: 30 RF: 0 polyethylene glycol 3350 17 gram Powder In Packet 17 gram PO DAILY Qty: 30 RF: 0 magnesium hydroxide [Milk of Magnesia] 400 mg/5 mL Suspension 30 ml PO DAILY PRN (Reason: Constipation) Qty: 3840 RF: 0 calcitonin (salmon) 200 unit/actuation [place],Non-Aerosol 1 spray intranasal DAILY Qty: 3.7 RF: 0 lidocaine 5 % Adhesive Patch,Medicated 1 patch topical BEDTIME Qty: 10 RF: 0 lidocaine 5 % Adhesive Patch,Medicated 1 patch topical DAILY Qty: 10 RF: 0 docusate sodium [DOK] 100 mg Capsule 100 mg PO BID Qty: 60 RF: 0 oxycodone 5 mg Tablet 2.5 mg PO Q4HR PRN (Reason: Pain, Moderate (4-6)) Qty: 10 RF: 0 hydrocodone-acetaminophen 10-325 mg Tablet 1 tab PO Q4H PRN (Reason: Back Pain) Qty: 60 RF: 0 bisacodyl 10 mg suppository 10 mg IA DAILY PRN (Reason: constipation) Qty: 10 RF: 0 Referrals: Alen Garsia MD [Primary Care Provider] -
[2020-07-27] MEDS: SODIUM CHLORIDE 0.9% 1,000 ML 1000 ML IV (16:00)
[2020-07-27] MEDS: ONDANSETRON 4 MG/2 ML INJ IV (16:00)
[2020-07-27 16:01] LABS: Add Manual Diff / Slide Review NO; Basophils Absolute Auto 0 /uL (0-100); Basophils Percent Auto 0.6 % (0-2); Eosinophils Absolute Auto 0 /uL (0-450); Eosinophils Percent Auto 0.1 % (2-4); Hematocrit 38.5 % (36-46); Hemoglobin 13.1 g/dL (12.0-16.0); Lymphocytes Absolute Auto 800 /uL (1100-4500); Lymphocytes Percent Auto 10.1 % (25-40); Mean Corpuscular Hemoglobin 32.8 PG (26-34); Mean Corpuscular Volume 96.6 fL (80-100); Monocytes Absolute Auto 1200 /uL (0-900); Neutrophils Absolute Auto 5800 /uL (1500-7000); Neutrophils Percent Auto 74.2 % (50-75); Platelet Count 274 X10^3/uL (150-400); Red Blood Cell Count 3.99 X10^6/uL (4.0-5.2); Red Cell Distribution Width 14.2 % (11.6-14.8); White Blood Cell Count 7.8 X10^3/uL (4.5-11.0)
[2020-07-27 16:16] LABS: Alanine Aminotransferase 14 IU/L (<35); Albumin 4.1 g/dL (3.5-5.0); Albumin Globulin Ratio 1.4 (1.0-2.8); Alkaline Phosphatase 92 U/L (38-126); Aspartate Aminotransferase 39 IU/L (14-36); BUN Creatinine Ratio 8.9 (6-22); Bilirubin Total 0.6 mg/dL (0.2-1.3); Blood Urea Nitrogen 5 mg/dL (7-17); Calcium 9.1 mg/dL (8.4-10.2); Carbon Dioxide 32 mmol/L (22-32); Chloride 92 mmol/L (98-107); Creatine Kinase 84 U/L (30-135); Estimated Glomerular Filt Rate > 60.0 mL/min (>60); Globulin 2.9 g/dL (1.7-4.1); Glucose 98 mg/dL (80-110); HEMOLYSIS < 15 (0-50); Lipase 31 U/L (23-300); Potassium 3.7 mmol/L (3.4-5.1); Sodium 130 mmol/L (137-145)
[2020-07-27 16:17] LABS: Lactate (Lactic Acid) 1.4 mmol/L (0.7-2.1)
[2020-07-27 16:28] LABS: Troponin I < 0.012 ng/mL (0.01-0.034)
[2020-07-27 16:32] LABS: Procalcitonin 0.05 ng/mL (<0.5)
[2020-07-27 16:40] LABS: COVID19 -Nasal RAPID Negative (Negative)
--- NOTE | 2020-07-27 18:30 | PC.NURSE ---
Patient educational program assistant light asking with assistance with urination. Patient stated felt too dizzy to ambulate to bathroom. Assisted patient onto bedside commode and back to bed after completion. Provider notified of dizziness. Head CT ordered.
--- NOTE | 2020-07-27 18:34 | DI.CT.S_ITS ---
PROCEDURE: CT HEAD/BRAIN WO CON INDICATIONS: vertigo TECHNIQUE: Noncontrast 4.5 mm thick angled axial sections acquired from the foramen magnum to the vertex, with coronal and sagittal reformats. For radiation dose reduction, the following was used: automated exposure control, adjustment of mA and/or kV according to patient size. COMPARISON: None. FINDINGS: Image quality: Excellent. CSF spaces: Basal cisterns are patent. No extra-axial fluid collections. The ventricles are symmetric in size and shape. Brain: No intracranial bleeds or masses. There is cerebral volume loss for age, with resultant ventricular and sulcal prominence. There are periventricular and deep white matter chronic small vessel ischemic changes. There is intracranial internal carotid artery atherosclerosis. Skull and face: Calvarium and visualized facial bones appear intact, without suspicious lesions. Tip of the odontoid process projects approximately 2 millimeters into the foramen magnum compatible with basilar invagination. Tip of the odontoid process produces mild mass effect on the lower medulla in the upper cervical spinal cord. Sinuses: Visualized sinuses and mastoids are clear. IMPRESSION: 1. No acute intracranial disease process. 2. Basilar invagination. Dictated by: Sheri Morales MD, PhD on 07/27/2020 at 18:53 Approved by: Sheri Morales MD, PhD on 07/27/2020 at 18:57
[2020-07-27 18:38] LABS: Bacteria Urine None Seen
[2020-07-27 18:48] LABS: Culture Indicated Urine Cult Not Indicated; RBC Urine 0-1/HPF (0-5/HPF); WBC Urine 0-1/HPF (0-5/HPF)
[2020-07-27] MEDS: MECLIZINE HCL 12.5 MG TABLET 25 MG PO (19:35)
--- NOTE | 2020-07-27 20:00 | PC.NURSE ---
Patient reports feeling improved. Given crackers and gingerale, tolerated both well. Performed ambulation trial around department per provider request. Patient ambulated one lap around department. Denied dizziness or SOB. No apparent increased work of breathing noted. Provider aware.
== END 2020-07-27 20:30 | disposition home or self-care (01) ==
PROVIDERS: Emergency Provider Emergency Medicine; PCP Internal Medicine
DX: H81.10 Benign paroxysmal vertigo, unspecified ear (principal); R11.2 Nausea with vomiting, unspecified; R10.30 Lower abdominal pain, unspecified
CPT/HCPCS: 36415; 70450; 74177; 80053; 81003; 81015; 82550; 83605; 83690; 84145; 84484; 85025; 87040; 87635; 93005; 96361; 96374; 99284; J2405; Q9967

== ENCOUNTER 2020-09-03 17:58 | Emergency (ER) | payer MEDICARE, OTHER, SELFPAY ==
[2019-10-28 01:25] VITALS: BMI 17.5
[2020-09-03] VITALS (17 sets, daily range): BP systolic 138–176; BP diastolic 64–80; PULSE 91–102; RESP 16–18; TEMP 38.2; O2SAT 81–100; BMI 20.2
--- NOTE | 2020-09-03 18:08 | DI.RAD.S_ITS ---
PROCEDURE: XR LUMBAR SPINE 2-3V INDICATIONS: fall with lumbar pain TECHNIQUE: 3 views of the lumbar spine were acquired. COMPARISON: [facility], CT, CT ABDOMEN PELVIS W CON, 07/27/2020, 16:24. [facility], CR, L-SPINE 2-3 VIEWS, 09/26/2014, 10:59. FINDINGS: Bones: 5 [id number]-rlqsjgb vertebrae are present. There is moderate levoscoliosis centered at L3 level. Anterior wedge compression deformities at L2, L3, and L4 levels are again seen, not significantly changed from 07/27/2020 study. There is diffuse osteopenia.. No new vertebral body compression fractures. Degenerative disc disease throughout lumbar spine is seen. No suspicious bony lesions. Soft tissues: Overlying bowel gas pattern is normal. No suspicious soft tissue calcifications. IMPRESSION: Diffuse osteopenia. Subacute to chronic appearing compression deformities at L2, L3 and L4 levels unchanged from recent CT study. Grade 1 anterolisthesis of L4 on L5 and L5 on S1. No gross new compression fracture is seen. Degenerative disc disease throughout lumbar spine. Dictated by: Radu Boyle M.D. on 09/03/2020 at 18:28 Approved by: Radu Boyle M.D. on 09/03/2020 at 18:30
--- NOTE | 2020-09-03 18:11 | ED.FALL ---
HPI - Fall General Chief Complaint: Fall Stated Complaint: GLF Time Seen by Provider: 09/03/20 18:03 Source: patient and EMS Mode of arrival: EMS Limitations: no limitations History of Present Illness HPI Narrative: 79F nonsmoker with history of RA and GERD presents by EMS for evaluation of significant lumbar pain after tripping and falling at about 10:00 a.m. this morning. She called EMS because her pain has been gradually worsening over the course of the day. Her pain is worse with motion and improves with rest. She denies any radiation the pain and states that it is in the midline lower back. She denies any neurologic symptoms such as numbness, tingling or weakness. She denies any trouble controlling bowel or bladder. She states this was purely an accidental fall and she tripped while leaving the bathroom and fell on the tile. She denies any head, neck or extremity pain. She denies prodromal symptoms such as dizziness, weakness or lightheadedness. She does not take blood thinners and denies use of alcohol or street drugs MD complaint: fall Onset (ago): hour(s) Fall from: standing Fall witnessed: no Place fall occurred: home Loss of consciousness: none Prolonged down time: no Symptoms prior to fall: none Context: tripped/slipped Location of injury: back Severity: moderate Quality: sharp Associated symptoms (after fall): unable to walk Related Data Home Medications Medication Instructions Recorded Confirmed methotrexate sodium 0.8 ml IM QWEEK 09/29/18 10/29/19 nystatin 1 applic TOPICAL BID 09/29/18 09/15/19 omeprazole 40 mg PO DAILY 09/29/18 10/28/19 spironolactone 100 mg PO QAM 09/29/18 10/28/19 cholecalciferol (vitamin D3) 2,000 unit PO DAILY 10/28/19 10/28/19 [Vitamin D3] codeine-guaifenesin [Guaifenesin 2.5 ml PO Q4H PRN 10/28/19 10/28/19 AC] folic acid 0.8 mg PO DAILY 10/28/19 10/28/19 nitrofurantoin macrocrystal 100 mg PO Q12-24H 10/28/19 10/28/19 [Macrodantin] ondansetron HCl [Zofran] 4 mg PO Q4H PRN 10/28/19 10/28/19 zoledronic ylio-ptvjovyc-tydkg 5 mg IV PER PKG DIR 10/28/19 10/28/19 [Reclast] Previous Rx's Medication Instructions Recorded alendronate 70 mg PO QWEEK #4 tab 10/04/18 bisacodyl 10 mg CA DAILY PRN #10 each 11/01/19 calcitonin (salmon) 1 spray INTRANASAL DAILY #3.7 ml 11/01/19 docusate sodium [DOK] 100 mg PO BID #60 cap 11/01/19 hydrocodone-acetaminophen 1 tab PO Q4H PRN #60 tab 11/01/19 lidocaine 1 patch TOPICAL BEDTIME #10 ea 11/01/19 lidocaine 1 patch TOPICAL DAILY #10 ea 11/01/19 magnesium hydroxide [Milk of 30 ml PO DAILY PRN #3840 ml 11/01/19 Magnesia] methocarbamol 500 mg PO TID PRN #90 tab 11/01/19 oxycodone 2.5 mg PO Q4HR PRN #10 tab 11/01/19 polyethylene glycol 3350 17 gram PO DAILY #30 each 11/01/19 sennosides [senna] 8.6 mg PO PRN PRN #30 tab 11/01/19 meclizine 25 mg PO DAILY PRN #20 tab 07/27/20 Allergies Allergy/AdvReac Type Severity Reaction Status Date / Time codeine Allergy Verified 09/03/20 18:08 morphine AdvReac Severe Vomiting Verified 09/03/20 18:08 meperidine [MEPERIDINE] AdvReac Unknown VOMITING Verified 09/03/20 18:08 oxycodone [OXYCODONE] AdvReac Unknown NAUSEA Verified 09/03/20 18:08 Review of Systems Constitutional Constitutional: Denies chills, Denies fatigue, Denies fever(s), Denies frequent falls, Denies lethargy and Denies weakness Eyes Eyes: Denies change in vision, Denies eye discharge, Denies irritation and Denies loss of vision ENT Ears, Nose, Mouth, and Throat: Denies change in voice, Denies dizziness, Denies neck pain, Denies sore throat and Denies throat swelling Cardiovascular Cardiovascular: Denies chest pain, Denies irregular heart rhythm, Denies lightheadedness, Denies palpitations, Denies dyspnea, Denies dyspnea on exertion and Denies orthopnea Respiratory Respiratory: Denies cough, Denies dyspnea, Denies dyspnea on exertion and Denies wheezing Gastrointestinal Gastrointestinal: Denies abdominal pain, Denies change in bowel habits, Denies diarrhea, Denies nausea and Denies vomiting Musculoskeletal Musculoskeletal: Reports back pain, Denies neck pain and Denies numbness Integumentary/Breasts Skin/Breast: Denies pruritus, Denies erythema, Denies rash and Denies wounds Neurologic Neurologic: Denies behavioral changes, Denies confusion, Denies dizziness, Denies frequent falls, Denies loss of vision, Denies numbness and Denies weakness Psychiatric Psychiatric: Denies anxiety, Denies behavioral changes, Denies confusion, Denies depression, Denies homicidal ideation and Denies suicidal ideation Endocrine Endocrine: Denies fatigue, Denies flushing and Denies palpitations Hematologic/Lymphatic Hematologic/Lymphatic: Denies easy bruising Allergic/Immunologic Allergic/Immunologic: Denies urticaria, Denies throat swelling and Denies wheezing Patient History Medical History (Updated 09/03/20 @ 22:23 by Stew Tobin DO) GERD (gastroesophageal reflux disease) Peripheral edema Rheumatoid arthritis Surgical History History of hand surgery History of total left knee replacement History of total right knee replacement Status post total hip replacement, left Status post wrist surgery Family History Mother No problems noted. Father No problems noted. Social History household members: spouse Smoking Status: Never smoker alcohol intake: current Smoking Status: Never smoker alcohol intake frequency: holidays/special occasions only Substance Use Type: does not use Exam Narrative Exam Narrative: GENERAL: [79] year old patient appears stated age. Well-nourished, well-developed patient, in mild distress. GCS 15. Full spinal precautions HEAD: Atraumatic. Normocephalic. EYES: Pupils equal round and reactive. Extraocular motions intact. No scleral icterus. No injection or drainage. ENT: Nose without bleeding, purulent drainage. Throat without erythema, tonsillar hypertrophy or exudate. Airway patent. NECK: Trachea midline. Non tender CARDIOVASCULAR: Regular rate and rhythm without murmurs, gallops, or rubs. RESPIRATORY: Clear to auscultation. Breath sounds equal bilaterally. No wheezes, rales, or rhonchi. GASTROINTESTINAL: Abdomen soft, non-tender, nondistended. EXTREMITIES: No edema or joint tenderness. BACK: Lower lumbar pain to palpation. No stepoffs. No saddle anesthesia. No extremity numbness, weakness, tingling. NEURO: AOx3. SKIN: No rash or erythema of visible areas Initial Vital Signs Initial Vital Signs: Vital Signs Blood Pressure 148/67 H 09/03/20 18:00 Course Orders Ordered: ED Orders 09/03/20 18:08 XR lumbar spine 2-3V Stat 09/03/20 18:24 CT lumbar spine wo con Stat 09/03/20 19:17 COVID19 Stat 09/03/20 19:25 Basic Metabolic Panel Stat Complete Blood Count AUTO DIFF Stat 09/03/20 20:42 CT cervical spine wo con Stat CT chest abd pel w con Stat CT head/brain wo con Stat Discontinued Medications Hydromorphone HCl (Hydromorphone 0.5 Mg Inj) 0.5 mg IV NOW ONE Stop: 09/03/20 20:54 Last Admin: 09/03/20 20:58 Dose: 0.5 mg Documented by: LEIA Ondansetron HCl (Ondansetron 4 Mg/2 Ml Inj) 4 mg IV NOW ONE Stop: 09/03/20 20:54 Last Admin: 09/03/20 20:58 Dose: 4 mg Documented by: LEIA Consultations Consultation #1: [place]autista [place] Vital Signs Vital signs: Vital Signs - 8 hr 09/03/20 18:00 09/03/20 18:04 09/03/20 18:35 Temperature 100.8 F H Pulse Rate 102 H Respiratory Rate 18 Blood Pressure 148/67 H 148/67 H Pulse Oximetry 97 89 L 09/03/20 18:36 09/03/20 18:37 09/03/20 18:40 Temperature Pulse Rate 99 H 96 H 94 H Respiratory Rate 16 Blood Pressure 138/64 138/64 Pulse Oximetry 87 L 89 L 100 09/03/20 18:57 09/03/20 19:00 09/03/20 19:30 Temperature Pulse Rate 97 H 94 H 95 H Respiratory Rate Blood Pressure 140/65 140/68 145/71 H Pulse Oximetry 89 L 98 98 09/03/20 20:00 09/03/20 20:30 09/03/20 21:00 Temperature Pulse Rate 93 H 95 H 94 H Respiratory Rate Blood Pressure 140/80 138/75 148/66 H Pulse Oximetry 99 99 99 09/03/20 21:30 09/03/20 21:53 09/03/20 22:01 Temperature Pulse Rate 91 H 98 H Respiratory Rate Blood Pressure 148/68 H 176/65 H Pulse Oximetry 99 99 09/03/20 22:05 09/03/20 22:30 Temperature Pulse Rate 98 H Respiratory Rate Blood Pressure 148/70 H Pulse Oximetry 81 L 99 - Fall Lab Data Result diagrams: 09/03/20 19:25 09/03/20 19:25 Labs: Lab Results 09/03/20 09/03/20 09/03/20 Range/Units 19:17 19:25 19:25 WBC 11.4 H (4.5-11.0) X10^3/uL RBC 3.41 L (4.0-5.2) X10^6/uL Hgb 10.6 L (12.0-16.0) g/dL Hct 32.3 L (36-46) % MCV 94.8 (80-100) fL MCH 31.2 (26-34) PG MCHC 32.9 (30-36) % RDW 15.5 H (11.6-14.8) % Plt Count 237 (150-400) X10^3/uL Neut % (Auto) 82.5 H (50-75) % Lymph % (Auto) 10.7 L (25-40) % Cole % (Auto) 5.6 (3-14) % Eos % (Auto) 1.0 L (2-4) % Baso % (Auto) 0.2 (0-2) % Neut # (Auto) 9400 H (3246-1562) /uL Lymph # (Auto) 1200 (4738-5463) /uL Cole # (Auto) 600 (0-900) /uL Eos # (Auto) 100 (0-450) /uL Baso # (Auto) 0 (0-100) /uL Sodium 134 L (137-145) mmol/L Potassium 3.8 (3.4-5.1) mmol/L Chloride 102 (98-107) mmol/L Carbon Dioxide 31 (22-32) mmol/L BUN 7 (7-17) mg/dL Creatinine 0.40 L (0.52-1.04) mg/dL Estimated GFR > 60.0 (>60) mL/min BUN/Creatinine Ratio 17.5 (6-22) Glucose 110 (80-110) mg/dL Calcium 8.9 (8.4-10.2) mg/dL COVID-19 PCR Negative (Negative) Urine Dip Bedside Urine Glucose Negative Bedside Urine Bilirubin - Negative Bedside Urine Ketone - Negative Urine Specific [place] 1.010 Bedside Urine Occult Blood - Negative Bedside Urine pH 8.0 Bedside Urine Protein - Negative Bedside Urine Urobilinogen - Negative Bedside Urine Nitrite - Negative Bedside Urine Leukocytes - Negative Esterase Imaging Data CT scan - head: Radiologist's Impression: Mariely Man E 79 F [address] [id number] Scan ReportSigned Patient: Mariely Man EMR#: [id number]: 1940Acct:[id number]/Sex: 79 / FDate of Service: 09/03/20Loc: EDAccession Number: [id number] Procedure: CT head/brain wo con Ordering Provider: Stew Tobin D.O. PROCEDURE: CT HEAD/BRAIN WO CON INDICATIONS: fall, distracting injury TECHNIQUE: Noncontrast 4.5 mm thick angled axial sections acquired from the foramen magnum to the vertex, with coronal and sagittal reformats. For radiation dose reduction, the following was used: automated exposure control, adjustment of mA and/or kV according to patient size. COMPARISON: [facility], CT, CT HEAD/BRAIN WO CON, 07/27/2020, 18:36. FINDINGS: Image quality: Excellent. CSF spaces: Basal cisterns are patent. No extra-axial fluid collections. The ventricles are symmetric in size and shape. Brain: No intracranial bleeds or masses. There is cerebral volume loss for age, with resultant ventricular and sulcal prominence. There are periventricular and deep white matter chronic small vessel ischemic changes. There is intracranial internal carotid artery atherosclerosis. Skull and face: Calvarium and visualized facial bones appear intact, without suspicious lesions. Previously described basilar invagination is again seen, unchanged from previous study Sinuses: Visualized sinuses and mastoids are clear. IMPRESSION: 1. No CT evidence of acute intracranial pathology. 2. No significant changes from previous study. Dictated by: Radu Boyle M.D. on 09/03/2020 at 21:34 Approved by: Radu Boyle M.D. on 09/03/2020 at 21:35 CT - cervical spine: Radiologist's Impression: [address] [id number] Scan ReportSigned Patient: Mariely Man EMR#: [id number]: 1940Acct:[id number]/Sex: 79 / FDate of Service: 09/03/20Loc: EDAccession Number: [id number] Procedure: CT cervical spine wo con Ordering Provider: Stew Tobin D.O. PROCEDURE: CT CERVICAL SPINE WO CON INDICATIONS: fall, trauma, distracting injury TECHNIQUE: Noncontrast 3 mm thick sections acquired from the skull base to the T4 level. Sagittal and coronal reformats were then constructed. For radiation dose reduction, the following was used: automated exposure control, adjustment of mA and/or kV according to patient size. COMPARISON: None. FINDINGS: Image quality: Excellent. Bones: No fractures or dislocations. Straightening and reversal of normal cervical lordosis is seen. Decreased intervertebral disc space and degenerative endplate changes are noted at C2-3 through C7-T1 levels with bilateral uncinate hypertrophic changes. Tip of odontoid process is again noted extending 2 millimeters into foramen magnum with mild mass effect on anterior aspect of a dual unchanged from previous study. Visualized superior ribs are intact. Soft tissues: Prevertebral soft tissues are normal in thickness. No paravertebral hematomas. No apical pneumothoraces. IMPRESSION: 1. No acute cervical spine fracture or dislocation. 2. 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 Degenerative disc disease throughout cervical spine. Dictated by: Radu Boyle M.D. on 09/03/2020 at 21:35 Approved by: Radu Boyle M.D. on 09/03/2020 at 21:38 CT scan - chest: Radiologist's Impression: Mariely Man E 79 F [address] [id number] Scan ReportSigned Patient: Mariely Man EMR#: [id number]: 1940Acct:[id number]/Sex: 79 / FDate of Service: 09/03/20Loc: EDAccession Number: [id number] Procedure: CT chest abd pel w con Ordering Provider: Stew Tobin D.O. PROCEDURE: CT CHEST ABD PEL W CON INDICATIONS: trauma, complex sacral fracture known TECHNIQUE: After the administration of intravenous contrast, 5 mm thick sections acquired from the lung apices to the symphysis. 2.5 mm thick coronal and sagittal reformats were acquired. Additional 7 mm thick coronal maximum intensity projection (MIP) reformats acquired through the lungs. Optional 10-minute delayed imaging may be performed from the kidneys to the bladder. For radiation dose reduction, the following was used: automated exposure control, adjustment of mA and/or kV according to patient size. COMPARISON: [facility], CT, CT ABDOMEN PELVIS W CON, 07/27/2020, 16:24. FINDINGS: Image quality: Excellent. CHEST: Lungs: There are small bilateral pleural effusion and posterior bilateral lower lobe dependent atelectasis/contusion. No pneumothorax. Mild bronchiectasis in bilateral lung calderon are noted. Central and peripheral airway is patent. Mediastinum: No mediastinal hematomas. Heart size is enlarged. No pericardial effusion. Usaq-ha-rcbjvblx atherosclerotic calcifications are seen. Thoracic aorta and pulmonary arteries demonstrate normal size and enhancement. No mediastinal or hilar adenopathy. Esophagus is normal in caliber. No hiatal hernia. Chest wall: No rib fractures. No subcutaneous emphysema. No axillary or supraclavicular adenopathy. Right thyroid lobe is asymmetrically enlarged with a 9 millimeter hypodense thyroid nodule. ABDOMEN: Solid organs: Liver is normal in size and enhancement, without lacerations. Gallbladder is within normal limits.. Biliary system is non-dilated. Pancreas enhances normally, without transection. Spleen is normal in size and enhancement, without lacerations. No adrenal hematomas. Both kidneys enhance normally, without hydronephrosis or lacerations. Peritoneum and bowel: No free fluid or air. Unenhanced bowel loops demonstrate normal wall thickness and caliber. Nodes and vessels: No retroperitoneal or mesenteric adenopathy. Aorta and inferior vena cava are normal in size and enhancement. Moderate atherosclerotic disease is seen. Miscellaneous: No ventral hernias. PELVIS: Genitourinary: Bladder wall thickness is normal. Urinary bladder is significantly distended. Miscellaneous: No inguinal hernias or adenopathy. Bones: Chronic appearing compression deformities of L2 through L4 vertebral bodies are again seen please refer to dedicated CT of lumbar spine findings. There is prior left hip arthroplasty. Subacute to old fractures involving left superior and inferior pubic rami are seen unchanged from prior study. Comminuted sacral fracture extending to bilateral sacral alae is again seen which was also described in lumbar spine CT. Old injury involving left transverse process of L2 is again seen, unchanged from prior studies. IMPRESSION: 1. Small bilateral pleural effusion with adjacent atelectasis/contusion in posterior aspect of bilateral lower lobes. No pneumothorax. Mild bilateral bronchiectasis. Airway is patent. 2. No mediastinal hematoma. No pericardial effusion. No aortic aneurysm or dissection. 3. No acute solid organ injury within abdomen or pelvis. No free fluid or free air. 4. No gross acute rib fracture. Old healed injuries involving left superior and inferior pubic rami and prior left hip arthroplasty. No acute pelvic fracture. 5. Comminuted sacral fracture as above please refer to CT of lumbar spine findings. Dictated by: Radu Boyle M.D. on 09/03/2020 at 21:44 Approved by: Radu Boyle M.D. on 09/03/2020 at 21:54 Discharge Plan Departure Patient Disposition: Admitted As Inpatient Clinical Impression: Fall Qualifiers: Encounter type: initial encounter Qualified Code(s): W19.XXXA - Unspecified fall, initial encounter Sacral fracture Qualifiers: Encounter type: initial encounter Zone of sacrum fracture: unspecified portion of sacrum Fracture type: closed Qualified Code(s): S32.10XA - Unspecified fracture of sacrum, initial encounter for closed fracture
--- NOTE | 2020-09-03 18:24 | DI.CT.S_ITS ---
PROCEDURE: CT LUMBAR SPINE WO CON INDICATIONS: fall with lumbar pain, known compression fractures TECHNIQUE: Noncontrast 3 mm thick sections acquired from the T12 level to the sacrum. Sagittal and coronal reformats were constructed. For radiation dose reduction, the following was used: automated exposure control. COMPARISON: [facility], CT, CT ABDOMEN PELVIS W CON, 07/27/2020, 16:24. [facility], CT, CT LUMBAR SPINE WO CON, 10/27/2019, 23:07. FINDINGS: Image quality: Excellent. Bones: Moderate levoscoliosis of lumbar spine is again seen centered at L3 level. Grade 1 anterolisthesis of L4 on L5 and L5 on S1 is again seen, also unchanged from previous studies. Chronic appearing moderate to severe anterior wedge compression deformity at L2 and L3 levels are again seen, unchanged from previous studies. Previously noted mild superior endplate compression deformity at L4 level remains unchanged. No new compression fracture in lumbar spine is seen. Acute comminuted fracture involving upper portion of S2 is seen extending to both right and left sacral alae is noted new since 07/27/2020 study. Patient is status post left hip arthroplasty. Healing fracture involving medial aspect of left superior pubic ramus is seen. T12-L1: Unremarkable. L1-L2: Broad-based disc bulge and bilateral facet arthrosis is seen causing moderate central canal stenosis and left-sided neural recess narrowing. This is unchanged from previous study. L2-L3: Broad-based disc bulge and bilateral facet arthrosis is seen with mild to moderate central canal stenosis, no significant neural foraminal narrowing. L3-L4: Decreased intervertebral disc space and degenerative endplate changes are seen. Broad-based disc bulge and bilateral facet arthrosis is seen with mild central canal stenosis, no significant neural foraminal narrowing. L4-L5: Decreased intervertebral disc space and degenerative endplate changes are seen. Broad-based disc bulge and bilateral facet arthrosis is seen with moderate central canal stenosis and mild bilateral neural foraminal narrowing. L5-S1: There is decreased intervertebral disc space and degenerative endplate changes. Broad-based disc bulge and bilateral facet arthrosis is seen with mild to moderate central canal stenosis and bilateral neural foraminal narrowing. Soft tissues: Mild presacral soft tissue swelling is seen anterior to S2 fracture site. No retroperitoneal masses or hematomas. Visualized aorta is normal in caliber. IMPRESSION: 1. Acute comminuted fracture involving upper portion of S2 extending to involve bilateral sacral alae with minimal displacement. 2. Chronic appearing superior endplate compression deformities at L2 and L3 are again seen unchanged from prior study. Stable appearing subacute to chronic compression deformity involving superior endplate of L4. Stable spondylolisthesis at L4-5 and L5-S1 levels. 3. Degenerative disc disease throughout lumbar spine with mild to moderate central canal stenosis and bilateral neural foraminal narrowing more prominent at L4-5 and L5-S1 levels as above. 4. Mild soft tissue swelling anterior to sacral fracture sites. No pelvic free fluid or free air. 5. Subacute to chronic appearing left superior pubic ramus fracture partially evaluated on this study and is unchanged from prior studies. Prior left hip arthroplasty. Dictated by: Radu Boyle M.D. on 09/03/2020 at 18:40 Approved by: Radu Boyle M.D. on 09/03/2020 at 19:06
[2020-09-03 19:33] LABS: Add Manual Diff / Slide Review NO; Basophils Absolute Auto 0 /uL (0-100); Basophils Percent Auto 0.2 % (0-2); Eosinophils Absolute Auto 100 /uL (0-450); Hematocrit 32.3 % (36-46); Hemoglobin 10.6 g/dL (12.0-16.0); Lymphocytes Absolute Auto 1200 /uL (1100-4500); Lymphocytes Percent Auto 10.7 % (25-40); Mean Corpuscular HGB Conc 32.9 % (30-36); Mean Corpuscular Hemoglobin 31.2 PG (26-34); Mean Corpuscular Volume 94.8 fL (80-100); Monocytes Absolute Auto 600 /uL (0-900); Monocytes Percent Auto 5.6 % (3-14); Neutrophils Absolute Auto 9400 /uL (1500-7000); Neutrophils Percent Auto 82.5 % (50-75); Platelet Count 237 X10^3/uL (150-400); Red Blood Cell Count 3.41 X10^6/uL (4.0-5.2); Red Cell Distribution Width 15.5 % (11.6-14.8); White Blood Cell Count 11.4 X10^3/uL (4.5-11.0)
[2020-09-03 19:36] LABS: COVID19 -Nasal RAPID Negative (Negative)
[2020-09-03 19:44] LABS: BUN Creatinine Ratio 17.5 (6-22); Blood Urea Nitrogen 7 mg/dL (7-17); Calcium 8.9 mg/dL (8.4-10.2); Carbon Dioxide 31 mmol/L (22-32); Chloride 102 mmol/L (98-107); Estimated Glomerular Filt Rate > 60.0 mL/min (>60); Glucose 110 mg/dL (80-110); HEMOLYSIS < 15 (0-50); Potassium 3.8 mmol/L (3.4-5.1); Sodium 134 mmol/L (137-145)
--- NOTE | 2020-09-03 20:42 | DI.CT.S_ITS ---
PROCEDURE: CT CERVICAL SPINE WO CON INDICATIONS: fall, trauma, distracting injury TECHNIQUE: Noncontrast 3 mm thick sections acquired from the skull base to the T4 level. Sagittal and coronal reformats were then constructed. For radiation dose reduction, the following was used: automated exposure control, adjustment of mA and/or kV according to patient size. COMPARISON: None. FINDINGS: Image quality: Excellent. Bones: No fractures or dislocations. Straightening and reversal of normal cervical lordosis is seen. Decreased intervertebral disc space and degenerative endplate changes are noted at C2-3 through C7-T1 levels with bilateral uncinate hypertrophic changes. Tip of odontoid process is again noted extending 2 millimeters into foramen magnum with mild mass effect on anterior aspect of a dual unchanged from previous study. Visualized superior ribs are intact. Soft tissues: Prevertebral soft tissues are normal in thickness. No paravertebral hematomas. No apical pneumothoraces. IMPRESSION: 1. No acute cervical spine fracture or dislocation. 2. 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 Degenerative disc disease throughout cervical spine. Dictated by: Radu Boyle M.D. on 09/03/2020 at 21:35 Approved by: Radu Boyle M.D. on 09/03/2020 at 21:38
--- NOTE | 2020-09-03 20:42 | DI.CT.S_ITS ---
PROCEDURE: CT HEAD/BRAIN WO CON INDICATIONS: fall, distracting injury TECHNIQUE: Noncontrast 4.5 mm thick angled axial sections acquired from the foramen magnum to the vertex, with coronal and sagittal reformats. For radiation dose reduction, the following was used: automated exposure control, adjustment of mA and/or kV according to patient size. COMPARISON: [facility], CT, CT HEAD/BRAIN WO CON, 07/27/2020, 18:36. FINDINGS: Image quality: Excellent. CSF spaces: Basal cisterns are patent. No extra-axial fluid collections. The ventricles are symmetric in size and shape. Brain: No intracranial bleeds or masses. There is cerebral volume loss for age, with resultant ventricular and sulcal prominence. There are periventricular and deep white matter chronic small vessel ischemic changes. There is intracranial internal carotid artery atherosclerosis. Skull and face: Calvarium and visualized facial bones appear intact, without suspicious lesions. Previously described basilar invagination is again seen, unchanged from previous study Sinuses: Visualized sinuses and mastoids are clear. IMPRESSION: 1. No CT evidence of acute intracranial pathology. 2. No significant changes from previous study. Dictated by: Radu Boyle M.D. on 09/03/2020 at 21:34 Approved by: Radu Boyle M.D. on 09/03/2020 at 21:35
--- NOTE | 2020-09-03 20:42 | DI.CT.S_ITS ---
PROCEDURE: CT CHEST ABD PEL W CON INDICATIONS: trauma, complex sacral fracture known TECHNIQUE: After the administration of intravenous contrast, 5 mm thick sections acquired from the lung apices to the symphysis. 2.5 mm thick coronal and sagittal reformats were acquired. Additional 7 mm thick coronal maximum intensity projection (MIP) reformats acquired through the lungs. Optional 10-minute delayed imaging may be performed from the kidneys to the bladder. For radiation dose reduction, the following was used: automated exposure control, adjustment of mA and/or kV according to patient size. COMPARISON: [facility], CT, CT ABDOMEN PELVIS W CON, 07/27/2020, 16:24. FINDINGS: Image quality: Excellent. CHEST: Lungs: There are small bilateral pleural effusion and posterior bilateral lower lobe dependent atelectasis/contusion. No pneumothorax. Mild bronchiectasis in bilateral lung calderon are noted. Central and peripheral airway is patent. Mediastinum: No mediastinal hematomas. Heart size is enlarged. No pericardial effusion. [id number] atherosclerotic calcifications are seen. Thoracic aorta and pulmonary arteries demonstrate normal size and enhancement. No mediastinal or hilar adenopathy. Esophagus is normal in caliber. No hiatal hernia. Chest wall: No rib fractures. No subcutaneous emphysema. No axillary or supraclavicular adenopathy. Right thyroid lobe is asymmetrically enlarged with a 9 millimeter hypodense thyroid nodule. ABDOMEN: Solid organs: Liver is normal in size and enhancement, without lacerations. Gallbladder is within normal limits.. Biliary system is non-dilated. Pancreas enhances normally, without transection. Spleen is normal in size and enhancement, without lacerations. No adrenal hematomas. Both kidneys enhance normally, without hydronephrosis or lacerations. Peritoneum and bowel: No free fluid or air. Unenhanced bowel loops demonstrate normal wall thickness and caliber. Nodes and vessels: No retroperitoneal or mesenteric adenopathy. Aorta and inferior vena cava are normal in size and enhancement. Moderate atherosclerotic disease is seen. Miscellaneous: No ventral hernias. PELVIS: Genitourinary: Bladder wall thickness is normal. Urinary bladder is significantly distended. Miscellaneous: No inguinal hernias or adenopathy. Bones: Chronic appearing compression deformities of L2 through L4 vertebral bodies are again seen please refer to dedicated CT of lumbar spine findings. There is prior left hip arthroplasty. Subacute to old fractures involving left superior and inferior pubic rami are seen unchanged from prior study. Comminuted sacral fracture extending to bilateral sacral alae is again seen which was also described in lumbar spine CT. Old injury involving left transverse process of L2 is again seen, unchanged from prior studies. IMPRESSION: 1. Small bilateral pleural effusion with adjacent atelectasis/contusion in posterior aspect of bilateral lower lobes. No pneumothorax. Mild bilateral bronchiectasis. Airway is patent. 2. No mediastinal hematoma. No pericardial effusion. No aortic aneurysm or dissection. 3. No acute solid organ injury within abdomen or pelvis. No free fluid or free air. 4. No gross acute rib fracture. Old healed injuries involving left superior and inferior pubic rami and prior left hip arthroplasty. No acute pelvic fracture. 5. Comminuted sacral fracture as above please refer to CT of lumbar spine findings. Dictated by: Radu Boyle M.D. on 09/03/2020 at 21:44 Approved by: Radu Boyle M.D. on 09/03/2020 at 21:54
[2020-09-03] MEDS: HYDROMORPHONE 0.5 MG INJ IV ×2 (20:58→23:05)
[2020-09-03] MEDS: ONDANSETRON 4 MG/2 ML INJ IV (20:58)
--- NOTE | 2020-09-03 21:24 | PC.NURSE ---
Pt reports no pain at rest but severe pain with any movement. Pt premedicated for CT with 0.5 mg dilaudid IV per order. Pt tolerated well. Pt is asking for osei cathether-- will discuss with Dr Tobin.
--- NOTE | 2020-09-03 22:20 | PC.NURSE ---
[facility] cathether placed with ok from Dr Tobin, pt tolerated well. [facility] now draining clear yellow urine. Pt updated to plan of care: Amb to arrive around 2300 to transport to [facility]. Pt's also updated by phone.
== END 2020-09-03 23:13 | disposition admitted as inpatient to this hospital (09) ==
PROVIDERS: Emergency Provider Emergency Medicine; PCP Internal Medicine
DX: S32.10XA Unspecified fracture of sacrum, initial encounter for closed fracture (principal); K21.9 Gastro-esophageal reflux disease without esophagitis; W19.XXXA Unspecified fall, initial encounter; M54.5 Low back pain; S19.9XXA Unspecified injury of neck, initial encounter; S09.90XA Unspecified injury of head, initial encounter
CPT/HCPCS: 36415; 51701; 70450; 71260; 72100; 72125; 72131; 74177; 80048; 81003; 85025; 87635; 96374; 96375; 96376; 99285; J1170; J2405; Q9967

== ENCOUNTER → 2020-10-11 15:41 | Outpatient (CLI) | payer MEDICARE, OTHER, SELFPAY ==
[2019-10-28 01:25] VITALS: BMI 17.5
[2020-10-11] MEDS: COVID-19 VACC #1, MRNA(MOD) 100 MCG/0.5 ML VIAL IM (15:54)
== END ==
PROVIDERS: PCP Internal Medicine; Visit Provider Internal Medicine
DX: Z23 Encounter for immunization (principal)
CPT/HCPCS: 0011A; 91301

== ENCOUNTER → 2020-10-18 09:42 | Outpatient (CLI) | payer MEDICARE, OTHER, SELFPAY ==
[2019-10-28 01:25] VITALS: BMI 17.5
--- NOTE | 2020-10-18 | DI.RAD.S_ITS ---
PROCEDURE: XR SACRUM COCCYX MIN 2V INDICATIONS: CLOSED FRACTURE OF SACRUM WITH ROUTINE HEALING TECHNIQUE: 3 views of the sacrum and coccyx acquired. COMPARISON: [facility], CT, CT CHEST ABD PEL W CON, 09/03/2020, 20:44. [facility], CR, XR PEL MIN 3V, 10/18/2020, 10:03. FINDINGS: Bones: Left hip arthroplasty as well as sacral transverse fixation is present. Fracture lucencies persist a, although poorly evaluated secondary to overlying bowel gas. There is stable alignment. Left pubic rami fractures are noted. Soft tissues: Visualized bowel gas pattern is normal. No suspicious soft tissue densities. IMPRESSION: Stable alignment of previously identified fractures as above. Dictated by: Ximena Varela M.D. on 10/18/2020 at 16:38 Approved by: Ximena Varela M.D. on 10/18/2020 at 16:39
--- NOTE | 2020-10-18 | DI.RAD.S_ITS ---
PROCEDURE: XR PEL MIN 3V INDICATIONS: CLOSED FRACTURE OF SACRUM WITH ROUTINE HEALING. TECHNIQUE: 1 view(s) of the pelvis acquired. COMPARISON: [facility], CT, CT CHEST ABD PEL W CON, 09/03/2020, 20:44. FINDINGS: Bones: Postsurgical changes compatible with left hip unipolar arthroplasty . Postsurgical changes compatible with bilateral SI joint arthrodesis for ORIF of sacral fracture. Chronic appearing left obturator ring fracture. Chronic appearing fracture of the left pubic body which is healed in nonunion. Soft tissues: Visualized bowel gas pattern is normal. No suspicious soft tissue calcifications. IMPRESSION: Expected postsurgical change for ORIF of sacral fracture. Dictated by: Sheri Morales MD, PhD on 10/18/2020 at 17:17 Approved by: Sheri Morales MD, PhD on 10/18/2020 at 17:19
== END ==
PROVIDERS: PCP Internal Medicine; Referring Provider Internal Medicine; Visit Provider Internal Medicine
DX: S32.10XD Unspecified fracture of sacrum, subsequent encounter for fracture with routine healing (principal); X58.XXXD Exposure to other specified factors, subsequent encounter; Z96.642 Presence of left artificial hip joint
CPT/HCPCS: 72190; 72220

== ENCOUNTER → 2020-11-08 14:20 | Outpatient (CLI) | payer MEDICARE, OTHER, SELFPAY ==
[2019-10-28 01:25] VITALS: BMI 17.5
[2020-11-08] MEDS: COVID-19 VACC #2, MRNA(MOD) 100 MCG/0.5 ML VIAL IM (14:26)
== END ==
PROVIDERS: PCP Internal Medicine; Visit Provider Internal Medicine
DX: Z23 Encounter for immunization (principal)
CPT/HCPCS: 0012A; 91301

== ENCOUNTER → 2021-05-07 12:28 | Outpatient (CLI) | payer MEDICARE, OTHER, SELFPAY ==
[2019-10-28 01:25] VITALS: BMI 17.5
--- NOTE | 2021-05-07 | DI.RAD.S_ITS ---
PROCEDURE: XR LUMBAR SPINE 2-3V INDICATIONS: RIGHT-SIDED LOW BACK PAIN WITHOUT SCIATICA TECHNIQUE: 3 views of the lumbar spine were acquired. COMPARISON: [facility], CT, CT CHEST ABD PEL W CON, 09/03/2020, 20:44. [facility], CR, XR PEL MIN 3V, 10/18/2020, 10:03. [facility], CR, XR LUMBAR SPINE 2-3V, 09/03/2020, 18:11. FINDINGS: Bones: There are 5 [id number] lumbar type vertebral bodies. Compression deformities at L2, L3, and L4 are redemonstrated, present on 09/03/2020 CT. No new compression fracture identified radiographically. Anterolisthesis of L4 on L5 and L5 on S1 appears similar. Postsurgical changes of iliosacral screw fixation again noted. Partially visualized left total hip arthroplasty. No abnormal lucency surrounding the visualized hardware, although it should be noted that the exam is limited by patient body habitus. Soft tissues: Overlying bowel gas pattern is normal. No suspicious soft tissue calcifications. IMPRESSION: Limited exam. Remote compression fractures at L2, L3, and L4 are grossly similar compared to prior study. Of note, there is osseous retropulsion of an L2 fracture fragment which along with degenerative changes produces at least moderate spinal canal stenosis. There is additional suspected at least moderate spinal canal stenosis at L3-L4, L4-L5, and L5-S1 due to degenerative changes and listhesis. Consider an MRI. Dictated by: Al Egan M.D. on 05/07/2021 at 15:18 Approved by: Al Egan M.D. on 05/07/2021 at 15:23
== END ==
PROVIDERS: PCP Internal Medicine; Referring Provider Internal Medicine; Visit Provider Internal Medicine
DX: M54.5 Low back pain (principal); M43.16 Spondylolisthesis, lumbar region; M47.816 Spondylosis without myelopathy or radiculopathy, lumbar region; M48.56XS Collapsed vertebra, not elsewhere classified, lumbar region, sequela of fracture
CPT/HCPCS: 72100

== ENCOUNTER → 2021-05-10 14:23 | Outpatient (CLI) | payer MEDICARE, OTHER, SELFPAY ==
[2019-10-28 01:25] VITALS: BMI 17.5
--- NOTE | 2021-05-10 | DI.MRI.S_ITS ---
PROCEDURE: MR LUMBAR SPINE WO CON INDICATIONS: low back pain TECHNIQUE: Noncontrast sagittal T1 spin echo and T2 fast echo, sagittal STIR, axial T1 and T2 fast spin echo through the lumbar spine. In cases with scoliosis, additional coronal T2 fast spin echo may be performed. COMPARISON: [facility], CR, XR LUMBAR SPINE 2-3V, 05/07/2021, 12:32. [facility], CT, CT CHEST ABD PEL W CON, 09/03/2020, 20:44. [facility], MR, L-SPINE WITH AND WITHOUT CONTR, 12/19/2008, 16:25. FINDINGS: Image quality: There is artifact associated with the metallic hardware. This examination is limited by involuntary motion artifact. Grade 1 L4-L5 and L5-S1 anterolisthesis can be seen. Alignment and Curvature: There is moderate levoconvex lumbar scoliosis. Bone Marrow: Marrow is of normal overall signal. No acute vertebral body compression fractures. Chronic L2, L3, and L4 vertebral body deformities are seen, which are similar to prior studies. There is chronic posterior displacement of fracture fragments at the L2 level. There is a fixation screw seen across the posterior pelvis across the sacrum, which is better seen by CT and plain film. Spinal Cord: Conus medullaris terminates at the L1 level. Visualized cord demonstrates normal signal and size. Paraspinous Soft Tissues: No paravertebral masses. T12-L1: Normal appearance. L1-L2: The disc height is well-preserved. Loss of disc signal is seen at this level. Moderate disc bulge is seen, with a central disc protrusion. There is moderate central canal narrowing seen posterior to the L2 vertebral body, where there is posterior displacement of fracture fragments. There is moderate right-sided and mild left-sided neural foraminal narrowing seen. L2-L3: The disc height is well-preserved. Loss of disc signal is seen at this level. Mild generalized disc bulge is seen. Mild facet joint hypertrophy is seen. There is moderate right-sided and no left-sided neural foraminal narrowing seen. Mild central canal narrowing is seen. L3-L4: The disc height is well-preserved. Loss of disc signal is seen at this level. Mild generalized disc bulge is seen. Mild to moderate bilateral neural foraminal narrowing can be seen. Mild central canal narrowing is seen. L4-L5: At least moderate loss of disc height and disc signal can be seen. Moderate generalized disc bulge is seen. There is moderate bilateral facet hypertrophy seen, right worse than left. There is moderate to severe right-sided and mild left-sided neural foraminal narrowing seen. There is a mild degree of compression seen upon the exiting right L4 nerve root. No significant central canal narrowing is seen. L5-S1: At least moderate loss of disc height and disc signal can be seen. At least moderate bilateral facet hypertrophy is seen. There is minimal right-sided and moderate to severe left-sided neural foraminal narrowing seen. There is a degree of compression seen upon the exiting left L5 nerve root. Mild central canal narrowing is seen. IMPRESSION: Lumbar spine degenerative changes are seen, which are worst at L4-L5 and L5-S1. The degenerative changes have progressed over time. Stable L2 through L4 compression deformities. There is moderate levoconvex scoliosis. Postoperative screw seen through the posterior pelvis across the sacrum. Dictated by: Timothy Dimas M.D. on 05/10/2021 at 16:59 Approved by: Timothy Dimas M.D. on 05/10/2021 at 17:06
== END ==
PROVIDERS: PCP Internal Medicine; Referring Provider Internal Medicine; Visit Provider Internal Medicine
DX: M54.5 Low back pain (principal); M47.816 Spondylosis without myelopathy or radiculopathy, lumbar region; M47.817 Spondylosis without myelopathy or radiculopathy, lumbosacral region; M41.86 Other forms of scoliosis, lumbar region
CPT/HCPCS: 72148

== ENCOUNTER 2021-07-09 22:12 | Emergency (ER) | payer MEDICARE, OTHER, SELFPAY ==
[2019-10-28 01:25] VITALS: BMI 17.5
[2021-07-09 22:15] VITALS: BP 161/70; PULSE 79; RESP 16; TEMP 36.6; O2SAT 96; BMI 20.6
--- NOTE | 2021-07-09 22:25 | DI.RAD.S_ITS ---
PROCEDURE: XR SHOULDER LT MIN 2V INDICATIONS: Fall out of bed, poss dislocation TECHNIQUE: 2 views of the shoulder were acquired. COMPARISON: [facility], CR, XR CHEST 1V, 09/14/2019, 17:43. FINDINGS: Bones: Comminuted left humeral head and neck fracture with displacement. Probable left distal clavicular fracture. Mild superior subluxation of the distal clavicle at the acromioclavicular joint. No suspicious bony lesions. Nondisplaced 5th, 6th and 7th left fractures. Soft tissues: No suspicious soft tissue calcifications. IMPRESSION: 1. Comminuted left humeral head and neck fracture. 2. Probable left distal clavicular fracture. Mild AC separation. 3. Nondisplaced left 5th, 6th and 7th rib fractures. Dictated by: Goldie Wayne M.D. on 07/09/2021 at 22:46 Approved by: Goldie Wayne M.D. on 07/09/2021 at 22:52
[2021-07-09 22:36] LABS: COVID19 -Nasal RAPID Negative (Negative)
--- NOTE | 2021-07-09 22:44 | ED.GENADULT ---
HPI - General Adult General Chief complaint: Extremity Injury, Upper Stated complaint: Lt Arm poss dislocation/ fall out of bed Time Seen by Provider: 07/09/21 22:19 Source: patient Mode of arrival: EMS Limitations: no limitations History of Present Illness HPI narrative: Patient is an 80-year-old female not on anticoagulation who is here for evaluation of an injury to her left shoulder. Patient states that she fell out of bed. And landed on her left shoulder she did not hit her head. She has no neck pain. She has no other musculoskeletal complaints except for discomfort to her left shoulder. She arrived by EMS Related Data Home Medications Medication Instructions Recorded Confirmed methotrexate sodium 25 mg/mL 0.8 ml IM QWEEK 09/29/18 10/29/19 injection solution nystatin 100,000 unit/gram topical 1 applic TOPICAL BID 09/29/18 09/15/19 ointment omeprazole 40 mg capsule,delayed 40 mg PO DAILY 09/29/18 10/28/19 release spironolactone 50 mg tablet 100 mg PO QAM 09/29/18 10/28/19 cholecalciferol (vitamin D3) 50 2,000 unit PO DAILY 10/28/19 10/28/19 mcg (2,000 unit) tablet (Vitamin D3) codeine 10 mg-guaifenesin 100 mg/5 2.5 ml PO Q4H PRN 10/28/19 10/28/19 mL oral liquid (Guaifenesin AC) folic acid 800 mcg tablet 0.8 mg PO DAILY 10/28/19 10/28/19 nitrofurantoin macrocrystal 100 mg 100 mg PO Q12-24H 10/28/19 10/28/19 capsule (Macrodantin) ondansetron HCl 4 mg tablet 4 mg PO Q4H PRN 10/28/19 10/28/19 (Zofran) zoledronic acid 5 mg/100 mL in 5 mg IV PER PKG DIR 10/28/19 10/28/19 mannitol 5 %-water intravenous piggybck (Reclast) Previous Rx's Medication Instructions Recorded alendronate 70 mg tablet 70 mg PO QWEEK #4 tab 10/04/18 bisacodyl 10 mg rectal suppository 10 mg ME DAILY PRN #10 each 11/01/19 calcitonin (salmon) 200 1 spray INTRANASAL DAILY #3.7 ml 11/01/19 unit/actuation nasal spray docusate sodium 100 mg capsule 100 mg PO BID #60 cap 11/01/19 (DOK) hydrocodone 10 mg-acetaminophen 1 tab PO Q4H PRN #60 tab 11/01/19 325 mg tablet lidocaine 5 % topical patch 1 patch TOPICAL BEDTIME #10 ea 11/01/19 lidocaine 5 % topical patch 1 patch TOPICAL DAILY #10 ea 11/01/19 magnesium hydroxide 400 mg/5 mL 30 ml PO DAILY PRN #3840 ml 11/01/19 oral suspension (Milk of Magnesia) methocarbamol 500 mg tablet 500 mg PO TID PRN #90 tab 11/01/19 oxycodone 5 mg tablet 2.5 mg PO Q4HR PRN #10 tab 11/01/19 polyethylene glycol 3350 17 gram 17 gram PO DAILY #30 each 11/01/19 oral powder packet sennosides 8.6 mg tablet (senna) 8.6 mg PO PRN PRN #30 tab 11/01/19 meclizine 25 mg tablet 25 mg PO DAILY PRN #20 tab 07/27/20 Allergies Allergy/AdvReac Type Severity Reaction Status Date / Time codeine Allergy Verified 07/09/21 22:19 morphine AdvReac Severe Vomiting Verified 07/09/21 22:19 meperidine [MEPERIDINE] AdvReac Unknown VOMITING Verified 07/09/21 22:19 oxycodone [OXYCODONE] AdvReac Unknown NAUSEA Verified 07/09/21 22:19 Review of Systems Constitutional Constitutional: Reports system reviewed and no additional complaints, except as documented Cardiovascular Cardiovascular: Reports system reviewed and no additional complaints, except as documented Respiratory Respiratory: Reports as per HPI and Reports system reviewed and no additional complaints, except as documented Musculoskeletal Musculoskeletal: Reports system reviewed and no additional complaints, except as documented and Reports as per HPI Integumentary/Breasts Skin/Breast: Reports system reviewed and no additional complaints, except as documented Neurologic Neurologic: Reports system reviewed and no additional complaints, except as documented Hematologic/Lymphatic On Anticoagulants: No Patient History Medical History GERD (gastroesophageal reflux disease) Peripheral edema Rheumatoid arthritis Surgical History History of hand surgery History of total left knee replacement History of total right knee replacement Status post total hip replacement, left Status post wrist surgery Family History Mother No problems noted. Father No problems noted. Social History household members: spouse Smoking Status: Never smoker alcohol intake: current Smoking Status: Never smoker alcohol intake frequency: holidays/special occasions only Substance Use Type: does not use Exam Initial Vital Signs Initial Vital Signs: Vital Signs Temperature 97.8 F 07/09/21 22:15 Pulse Rate 79 07/09/21 22:15 Respiratory Rate 16 07/09/21 22:15 Blood Pressure 161/70 H 07/09/21 22:15 Pulse Oximetry 96 07/09/21 22:15 Const General: cooperative, healthy appearing, comfortable and well developed HENMT Head: normal to inspection and normocephalic Chest Chest: normal inspection of the chest, No crepitus and No tenderness Resp Effort & Inspection: normal respiratory effort Auscultation: clear to auscultation bilaterally GI Inspection: normal to inspection Skin General: no rashes or lesions noted Extrem Other: Patient's left wrist is unremarkable. Left elbow is unremarkable. She does have tenderness to palpation throughout the left shoulder a right upper extremity pelvis and lower extremities unremarkable. Procedures Orthopedic Splinting/Casting Injury #1: Side: left Upper Extremity Injury Location: shoulder Upper Extremity Immobilizer: sling/shoulder immobilizer Post splinting neuro exam: no change Post splinting vascular exam: no change Placed by: Nursing Course Orders Ordered: ED Orders 07/09/21 22:14 COVID19 -Nasal swab/Pre-Proc Stat 07/09/21 22:25 XR shoulder LT min 2V Stat Discontinued Medications Hydrocodone Bitart/Acetaminophen (Hydrocodone/Acet 10/325 Tablet) 1 tab PO NOW ONE Stop: 07/09/21 22:45 Last Admin: 07/09/21 23:02 Dose: 1 tab Documented by: CESARIO Vital Signs Vital signs: Vital Signs - 8 hr 07/09/21 22:15 07/10/21 00:10 Temperature 97.8 F Pulse Rate 79 83 Respiratory Rate 16 18 Blood Pressure 161/70 H 168/74 H Pulse Oximetry 96 98 Medical Decision Making Lab Data Labs: Lab Results 07/09/21 Range/Units 22:14 SARS-CoV-2 (PCR) Negative (Negative) Imaging Data Extremity x-ray #1: Radiologist's Impression: [address] [address] XRay Report Signed Patient: Mariely Man MR#: [id number] : 1940 Acct:[id number] Age/Sex: 80 / F Date of Service: 07/09/21 Loc: ED Accession Number: [id number] ?? Procedure: XR shoulder LT min 2V Ordering Provider: Nestor Brunner D.O. PROCEDURE:? XR SHOULDER LT MIN 2V ? INDICATIONS:? Fall out of bed, poss dislocation ? TECHNIQUE:? 2 views of the shoulder were acquired.? ? COMPARISON:? [facility], CR, XR CHEST 1V, 09/14/2019, 17:43. ? FINDINGS:? ? Bones:? Comminuted left humeral head and neck fracture with displacement.? Probable left distal clavicular fracture.? Mild superior subluxation of the distal clavicle at the acromioclavicular joint.? No suspicious bony lesions.? Nondisplaced 5th, 6th and 7th left fractures.? ? Soft tissues:? No suspicious soft tissue calcifications.? ? IMPRESSION:? ? 1. Comminuted left humeral head and neck fracture. ? 2. Probable left distal clavicular fracture.? Mild AC separation. 3. Nondisplaced left 5th, 6th and 7th rib fractures. ? Dictated by: Goldie Wyane M.D. on 07/09/2021 at 22:46 ? ? Approved by: Goldie Wayne M.D. on 07/09/2021 at 22:52? MDM Narrative Medical decision making narrative: Patient has no neck pain. She has no tenderness on her left sided chest wall. States she has broken her ribs in the past. I suspect that the rib fractures noted on the x-ray today are not new. She has no respiratory distress. Lungs are clear. She was placed in a sling given pain medication. Given return precautions and follow-up instructions. She expressed understanding and agreement. Discharge Plan Departure Patient Disposition: Home Clinical Impression: Fracture of proximal end of humerus Instructions: How to Use a Sling, DI for Shoulder Fracture Activity Restrictions/Additional Instructions: The x-ray does show that you fracture to the top portion of the humerus bone in your left arm. The sling that was placed today is for your comfort. You can take it off to shower or when your feeling better. Recommend you contact the orthopedic providers at the number provided below for a follow-up. Return to the emergency department for any new or worsening symptoms Prescriptions: No Action meclizine 25 mg tablet 25 mg PO DAILY PRN (Reason: dizziness) Qty: 20 RF: 0 methotrexate sodium 25 mg/mL solution 0.8 ml IM QWEEK RF: 0 omeprazole 40 mg capsule,delayed release(DR/EC) 40 mg PO DAILY RF: 0 spironolactone 50 mg tablet 100 mg PO QAM RF: 0 nystatin 100,000 unit/gram Ointment 1 applic TOPICAL BID RF: 0 alendronate 70 mg tablet 70 mg PO QWEEK Qty: 4 RF: 0 ondansetron HCl [Zofran] 4 mg Tablet 4 mg PO Q4H PRN (Reason: Nausea) RF: 0 nitrofurantoin macrocrystal [Macrodantin] 100 mg Capsule 100 mg PO Q12-24H RF: 0 codeine-guaifenesin [Guaifenesin AC] 10-100 mg/5 mL Liquid 2.5 ml PO Q4H PRN (Reason: Cough) RF: 0 folic acid 800 mcg Tablet 0.8 mg PO DAILY RF: 0 zoledronic [id number] [Reclast] 5 mg/100 mL Piggyback 5 mg IV PER PKG DIR RF: 0 cholecalciferol (vitamin D3) [Vitamin D3] 2,000 unit Tablet 2,000 unit PO DAILY RF: 0 methocarbamol 500 mg Tablet 500 mg PO TID PRN (Reason: Muscle Spasm) Qty: 90 RF: 0 sennosides [senna] 8.6 mg Tablet 8.6 mg PO PRN PRN (Reason: Constipation) Qty: 30 RF: 0 polyethylene glycol 3350 17 gram Powder In Packet 17 gram PO DAILY Qty: 30 RF: 0 magnesium hydroxide [Milk of Magnesia] 400 mg/5 mL Suspension 30 ml PO DAILY PRN (Reason: Constipation) Qty: 3840 RF: 0 calcitonin (salmon) 200 unit/actuation [place],Non-Aerosol 1 spray intranasal DAILY Qty: 3.7 RF: 0 lidocaine 5 % Adhesive Patch,Medicated 1 patch topical BEDTIME Qty: 10 RF: 0 lidocaine 5 % Adhesive Patch,Medicated 1 patch topical DAILY Qty: 10 RF: 0 docusate sodium [DOK] 100 mg Capsule 100 mg PO BID Qty: 60 RF: 0 oxycodone 5 mg Tablet 2.5 mg PO Q4HR PRN (Reason: Pain, Moderate (4-6)) Qty: 10 RF: 0 hydrocodone-acetaminophen 10-325 mg Tablet 1 tab PO Q4H PRN (Reason: Back Pain) Qty: 60 RF: 0 bisacodyl 10 mg suppository 10 mg ME DAILY PRN (Reason: constipation) Qty: 10 RF: 0 Referrals: Alen Garsia MD [Primary Care Provider] - Saurabh Parnell MD [Physician] -
[2021-07-09] MEDS: HYDROCODONE/ACET 10/325 TABLET 1 TAB PO (23:02)
[2021-07-10 00:10] VITALS: BP 168/74; PULSE 83; RESP 18; O2SAT 98
== END 2021-07-10 00:14 | disposition home or self-care (01) ==
PROVIDERS: Emergency Provider Emergency Medicine; PCP Internal Medicine
DX: S42.202A Unspecified fracture of upper end of left humerus, initial encounter for closed fracture (principal); W06.XXXA Fall from bed, initial encounter; Z20.822 Contact with and (suspected) exposure to COVID-19
CPT/HCPCS: 73030; 87635; 99283; 99284; C9803

== ENCOUNTER 2021-11-17 07:11 | Emergency (ER) | payer MEDICARE, OTHER, SELFPAY ==
[2019-10-28 01:25] VITALS: BMI 17.5
[2021-11-17] VITALS (14 sets, daily range): BP systolic 122–148; BP diastolic 59–81; PULSE 86–130; RESP 15–21; TEMP 37; O2SAT 96–100; BMI 20.6
[2021-11-17] MEDS: ONDANSETRON 4 MG/2 ML INJ IV ×2 (07:34→10:33)
--- NOTE | 2021-11-17 07:38 | ED.NAVMDI ---
HPI - Nausea/Vomiting/Diarrhea General Chief complaint: Nausea/Vomiting/Diarrhea Stated complaint: N/V Time Seen by Provider: 11/17/21 07:37 Source: patient and EMS Mode of arrival: EMS Limitations: no limitations History of Present Illness HPI Narrative: This is an 81-year-old female comes emergency department complaint of nausea for 2 days which started with vomiting last night and into today. Patient has some mid abdominal discomfort or pain but states that that is only when she vomits. She denies fevers, she felt chilled when she arrived but feels better after being covered with a blanket. She denies any chest pain or pressure, no shortness of breath. No lightheadedness or passing out. She has chronic back pain. She denies any constipation or diarrhea and states she had a bowel movement this morning. She denies any dysuria urgency or frequency. Patient states she has had multiple orthopedic surgery states no prior abdominal surgeries. She is on medications including diuretic, pain medications and methotrexate. She has not had similar symptoms in the past. No tobacco, occasional alcohol, no illicit. Her primary care was Dr. Garsia Related Data Home Medications Medication Instructions Recorded Confirmed methotrexate sodium 25 mg/mL 0.8 ml IM QWEEK 09/29/18 10/29/19 injection solution nystatin 100,000 unit/gram topical 1 applic TOPICAL BID 09/29/18 09/15/19 ointment omeprazole 40 mg capsule,delayed 40 mg PO DAILY 09/29/18 10/28/19 release spironolactone 50 mg tablet 100 mg PO QAM 09/29/18 10/28/19 cholecalciferol (vitamin D3) 50 2,000 unit PO DAILY 10/28/19 10/28/19 mcg (2,000 unit) tablet (Vitamin D3) codeine 10 mg-guaifenesin 100 mg/5 2.5 ml PO Q4H PRN 10/28/19 10/28/19 mL oral liquid (Guaifenesin AC) folic acid 800 mcg tablet 0.8 mg PO DAILY 10/28/19 10/28/19 nitrofurantoin macrocrystal 100 mg 100 mg PO Q12-24H 10/28/19 10/28/19 capsule (Macrodantin) ondansetron HCl 4 mg tablet 4 mg PO Q4H PRN 10/28/19 10/28/19 (Zofran) zoledronic acid 5 mg/100 mL in 5 mg IV PER PKG DIR 10/28/19 10/28/19 mannitol 5 %-water intravenous piggybck (Reclast) Previous Rx's Medication Instructions Recorded alendronate 70 mg tablet 70 mg PO QWEEK #4 tab 10/04/18 bisacodyl 10 mg rectal suppository 10 mg GA DAILY PRN #10 each 11/01/19 calcitonin (salmon) 200 1 spray INTRANASAL DAILY #3.7 ml 11/01/19 unit/actuation nasal spray docusate sodium 100 mg capsule 100 mg PO BID #60 cap 11/01/19 (DOK) hydrocodone 10 mg-acetaminophen 1 tab PO Q4H PRN #60 tab 11/01/19 325 mg tablet lidocaine 5 % topical patch 1 patch TOPICAL BEDTIME #10 ea 11/01/19 lidocaine 5 % topical patch 1 patch TOPICAL DAILY #10 ea 11/01/19 magnesium hydroxide 400 mg/5 mL 30 ml PO DAILY PRN #3840 ml 11/01/19 oral suspension (Milk of Magnesia) methocarbamol 500 mg tablet 500 mg PO TID PRN #90 tab 11/01/19 oxycodone 5 mg tablet 2.5 mg PO Q4HR PRN #10 tab 11/01/19 polyethylene glycol 3350 17 gram 17 gram PO DAILY #30 each 11/01/19 oral powder packet sennosides 8.6 mg tablet (senna) 8.6 mg PO PRN PRN #30 tab 11/01/19 meclizine 25 mg tablet 25 mg PO DAILY PRN #20 tab 07/27/20 cephalexin 500 mg capsule 500 mg PO BID 7 Days #14 cap 11/17/21 ondansetron 4 mg disintegrating 4 mg PO Q6H PRN #10 tab 11/17/21 tablet Allergies Allergy/AdvReac Type Severity Reaction Status Date / Time codeine Allergy Verified 07/09/21 22:19 morphine AdvReac Severe Vomiting Verified 07/09/21 22:19 meperidine [MEPERIDINE] AdvReac Unknown VOMITING Verified 07/09/21 22:19 oxycodone [OXYCODONE] AdvReac Unknown NAUSEA Verified 07/09/21 22:19 Review of Systems Review of Systems ROS Unobtainable: All systems reviewed & are unremarkable except as noted in HPI and below Patient History Medical History (Updated 11/17/21 @ 09:49 by Yoon Bocanegra DO) GERD (gastroesophageal reflux disease) Peripheral edema Rheumatoid arthritis Surgical History History of hand surgery History of total left knee replacement History of total right knee replacement Status post total hip replacement, left Status post wrist surgery Family History Mother No problems noted. Father No problems noted. Social History household members: spouse Smoking Status: Never smoker alcohol intake: current Smoking Status: Never smoker alcohol intake frequency: holidays/special occasions only Substance Use Type: does not use Exam Narrative Exam Narrative: GENERAL: Alert and oriented x three, elderly female in mild distress. HEENT: Head normocephalic, atraumatic, EOMI, pupils reactive, face symmetric, moist mucous membranes NECK: Supple, full range of motion CARDIOVASCULAR: Regular rate and rhythm without murmurs, rubs or gallops. RESPIRATORY: Breath sounds equal bilaterally, no wheezes rales or rhonchi. No tachypnea accessory muscle use. ABDOMEN: Soft, nontender. Normoactive bowel sounds all 4 quadrants. No guarding or rebound, rigidity, no mass. Patient did have several episodes of dry heaving in the room. : No CVA tenderness EXTREMITIES: Normal range of motion patient does have ulnar deviation and enlargement of the DIP and PIP joints of her hands consistent with rheumatoid arthritis. No clubbing or edema. Neurovascularly intact NEUROLOGICAL: Cranial nerves II through XII grossly intact. Moving all extremities SKIN: Warm, dry, no petechiae, no rashes or lesions. Initial Vital Signs Initial Vital Signs: Vital Signs Temperature 98.6 F 11/17/21 07:19 Pulse Rate 88 11/17/21 07:19 Respiratory Rate 17 11/17/21 07:19 Blood Pressure 133/60 11/17/21 07:19 Pulse Oximetry 100 11/17/21 07:19 Course Orders Ordered: Discontinued Medications Diphenhydramine HCl (Diphenhydramine 50 Mg/Ml Vial) 25 mg IV NOW ONE Stop: 11/17/21 07:49 Last Admin: 11/17/21 08:02 Dose: 25 mg Documented by: GABBY Sodium Chloride (Normal Saline 0.9%) 1,000 mls @ 1,000 mls/hr IV BOLUS ONE Stop: 11/17/21 08:43 Last Infusion: 11/17/21 09:02 Dose: 0 mls/hr Documented by: Admin: 11/17/21 07:50 Dose: 1,000 mls/hr Documented by: GABBY Ceftriaxone Sodium 2,000 mg/ (Sodium Chloride) 100 mls @ 200 mls/hr IV NOW ONE Stop: 11/17/21 09:40 Last Infusion: 11/17/21 10:43 Dose: 0 mls/hr Documented by: Admin: 11/17/21 09:51 Dose: 200 mls/hr Documented by: GABBY Ketorolac Tromethamine (Ketorolac 30 Mg/Ml Vial) 15 mg IV NOW ONE Stop: 11/17/21 11:44 Last Admin: 11/17/21 11:50 Dose: 15 mg Documented by: GABBY Ondansetron HCl (Ondansetron 4 Mg/2 Ml Inj) 4 mg IV NOW ONE Stop: 11/17/21 07:29 Last Admin: 11/17/21 07:34 Dose: 4 mg Documented by: GABBY Ondansetron HCl (Ondansetron 4 Mg/2 Ml Inj) 4 mg IV NOW ONE Stop: 11/17/21 07:45 Ondansetron HCl (Ondansetron 4 Mg/2 Ml Inj) 4 mg IV NOW ONE Stop: 11/17/21 10:19 Last Admin: 11/17/21 10:33 Dose: 4 mg Documented by: GABBY Reevaluation(s) Reevaluation #1: Patient feeling better after IV benadryl. N/V improved. Time: 08:25 Reevaluation #2: Patient still nauseated but feeling better. No persistent vomiting. She does have bacteria and hematuria on her urine but no other clear cause of her nausea and vomiting. Patient was given a dose of Rocephin. Plan for oral challenge if patient passes plan for DC home on oral antibiotics and if she fails observation. Time: 09:47 Reevaluation #3: Patient was able to tolerate applesauce and crackers here in the department. She has had some nausea but no vomiting. She has been ambulating in the department. At this time patient is appropriate for discharge home with strict return precautions all questions answered. Vital Signs Vital signs: Vital Signs - 8 hr 11/17/21 07:19 11/17/21 07:20 11/17/21 07:24 Temperature 98.6 F Pulse Rate 88 89 91 H Respiratory Rate 17 17 21 Blood Pressure 133/60 133/60 Pulse Oximetry 100 98 99 11/17/21 07:30 11/17/21 08:00 11/17/21 08:30 Temperature Pulse Rate 87 86 88 Respiratory Rate 16 19 21 Blood Pressure 125/59 L 141/65 H 148/65 H Pulse Oximetry 98 96 97 11/17/21 08:48 11/17/21 09:05 11/17/21 09:30 Temperature Pulse Rate 96 H 104 H 97 H Respiratory Rate 18 16 Blood Pressure 135/77 Pulse Oximetry 98 99 97 MDM - Nausea/Vomiting/Diarrhea Lab Data Result diagrams: 11/17/21 07:21 11/17/21 07:21 Labs: Lab Results 11/17/21 11/17/21 11/17/21 Range/Units 07:21 07:21 07:21 WBC 9.3 (4.5-11.0) X10^3/uL RBC 3.86 L (4.0-5.2) X10^6/uL Hgb 12.8 (12.0-16.0) g/dL Hct 39.1 (36-46) % MCV 101.2 H (80-100) fL MCH 33.1 (26-34) PG MCHC 32.8 (30-36) % RDW 15.9 H (11.6-14.8) % Plt Count 354 (150-400) X10^3/uL Neut % (Auto) 66.6 (50-75) % Lymph % (Auto) 22.7 L (25-40) % [place] % (Auto) 9.3 (3-14) % Eos % (Auto) 0.9 L (2-4) % Baso % (Auto) 0.5 (0-2) % Neut # (Auto) 6200 (0291-6694) /uL Lymph # (Auto) 2100 (8899-5182) /uL [place] # (Auto) 900 (0-900) /uL Eos # (Auto) 100 (0-450) /uL Baso # (Auto) 0 (0-100) /uL Sodium 128 L (137-145) mmol/L Potassium 4.1 (3.4-5.1) mmol/L Chloride 93 L (98-107) mmol/L Carbon Dioxide 32 (22-32) mmol/L BUN 8 (7-17) mg/dL Creatinine 0.63 (0.52-1.04) mg/dL Estimated GFR > 60.0 (>60) mL/min BUN/Creatinine Ratio 12.7 (6-22) Glucose 88 (80-110) mg/dL Calcium 9.4 (8.4-10.2) mg/dL Total Bilirubin 0.7 (0.2-1.3) mg/dL AST 25 (14-36) IU/L ALT 11 (<35) IU/L Alkaline Phosphatase 44 (38-126) U/L Total Protein 6.5 (6.3-8.2) g/dL Albumin 4.1 (3.5-5.0) g/dL Globulin 2.4 (1.7-4.1) g/dL Albumin/Globulin Ratio 1.7 (1.0-2.8) Lipase 31 (23-300) U/L TSH 2.22 (0.47-4.68) uIU/mL Urine RBC (0-5/HPF) Urine WBC (0-5/HPF) Ur Squamous Epith Cells (0-5/HPF) Urine Bacteria (None) Ur Culture Indicated? SARS-CoV-2 (PCR) (Negative) 11/17/21 11/17/21 Range/Units 09:00 09:20 WBC (4.5-11.0) X10^3/uL RBC (4.0-5.2) X10^6/uL Hgb (12.0-16.0) g/dL Hct (36-46) % MCV (80-100) fL MCH (26-34) PG MCHC (30-36) % RDW (11.6-14.8) % Plt Count (150-400) X10^3/uL Neut % (Auto) (50-75) % Lymph % (Auto) (25-40) % [place] % (Auto) (3-14) % Eos % (Auto) (2-4) % Baso % (Auto) (0-2) % Neut # (Auto) (9415-1208) /uL Lymph # (Auto) (2357-9664) /uL [place] # (Auto) (0-900) /uL Eos # (Auto) (0-450) /uL Baso # (Auto) (0-100) /uL Sodium (137-145) mmol/L Potassium (3.4-5.1) mmol/L Chloride (98-107) mmol/L Carbon Dioxide (22-32) mmol/L BUN (7-17) mg/dL Creatinine (0.52-1.04) mg/dL Estimated GFR (>60) mL/min BUN/Creatinine Ratio (6-22) Glucose (80-110) mg/dL Calcium (8.4-10.2) mg/dL Total Bilirubin (0.2-1.3) mg/dL AST (14-36) IU/L ALT (<35) IU/L Alkaline Phosphatase (38-126) U/L Total Protein (6.3-8.2) g/dL Albumin (3.5-5.0) g/dL Globulin (1.7-4.1) g/dL Albumin/Globulin Ratio (1.0-2.8) Lipase (23-300) U/L TSH (0.47-4.68) uIU/mL Urine RBC 5-10/hpf H (0-5/HPF) Urine WBC 0-1/hpf (0-5/HPF) Ur Squamous Epith Cells 0-1 /hpf (0-5/HPF) Urine Bacteria Few (2-10) H (None) Ur Culture Indicated? Cult not indicated SARS-CoV-2 (PCR) Negative (Negative) Point of Care Testing Glucose POC 84 Urine Dip Bedside Urine Glucose Negative Bedside Urine Bilirubin - Negative Bedside Urine Ketone + 15 Urine Specific [place] 1.015 Bedside Urine Occult Blood ++ Bedside Urine pH 7.0 Bedside Urine Protein - Negative Bedside Urine Urobilinogen 0.2 Bedside Urine Nitrite - Negative Bedside Urine Leukocytes - Negative Esterase Imaging Data CT scan - abdomen/pelvis: Radiologist's Impression: [address] [address] [address] Scan Report Signed Patient: Mariely Man MR#: [id number] : 1940 Acct:[id number] Age/Sex: 81 / F Date of Service: 11/17/21 Loc: ED Accession Number: [id number] ?? Procedure: CT abdomen pelvis w con Ordering Provider: Yoon Bocanegra D.O. PROCEDURE:? CT ABDOMEN PELVIS W CON ? INDICATIONS:? n/v x 2 days. ? TECHNIQUE:? After the administration of intravenous contrast, axial sections acquired from the lung bases to the pubic symphysis.? Coronal and sagittal reformats were performed.? For radiation dose reduction, the following was used:? automated exposure control, adjustment of mA and/or kV according to patient size.? ? COMPARISON:? [facility], CT, CT ABDOMEN PELVIS W CON, 07/27/2020, 16:24. ? FINDINGS:? Image quality:? Excellent.? ? Lung bases:? Very minimal bibasilar atelectasis.. Heart:? No significant findings. ? ABDOMEN: Liver:? Unremarkable.? ? Gallbladder:? Unremarkable.? ? Biliary ducts:? Unremarkable.? ? Pancreas:? Unremarkable.? ? Spleen:? Unremarkable.? ? Adrenal Glands:? Unremarkable.? ? Kidneys and Ureters:? Unremarkable.? ? ? Stomach and Bowel:? Sigmoid diverticulosis.? No dilated loops of bowel.? No bowel wall thickening. Peritoneum:? No abnormal intraperitoneal fluid.? No free air.? ? Ventral Wall: ? No hernias.? Abdominal Nodes:? No retroperitoneal or mesenteric adenopathy by size criteria.? Vessels:? Aorta and inferior vena cava are normal in size.? Incidental note is made of the presence of a dilated left gonadal vein and left paraovarian varicosities. ? PELVIS: Pelvic Organs:? Uterus is surgically absent.? ? Bladder:? Unremarkable.? ? Pelvic Nodes: No enlarged lymph nodes.? Miscellaneous: No hernias are seen. ? ? ? Bones:? Chronic compressions of L2, L3, and L4.? Levocurvature of the lumbar spine centered L3.? Remote left pubic symphysis and left ischial fractures.? Left hip arthroplasty.? Screw fixation of the sacrum. ? ? IMPRESSION:? ? 1. No evidence of acute abdominal process. ? 2. Sigmoid diverticulosis. ? 3. Severe osteoporosis with numerous chronic fractures.? ? ? Dictated by: Alcon Neal M.D. on 11/17/2021 at 8:20 ? ? Approved by: Alcon Neal M.D. on 11/17/2021 at 8:25?? ECG Data Attestation: I personally reviewed and interpreted this ECG as follows: Prior ECG tracings: available for review Interpretation: Sinus rhythm, rate 86 GA 164, QRS is 74 and QTC of 435. No acute ST elevation or depression appreciated. Patient has prior from 07/27/2020 which appears similar. MDM Narrative Medical decision making narrative: This is an 81-year-old female comes in with 48 hours of nausea with vomiting and abdominal discomfort. Patient has been afebrile. She has had some urinary symptoms. Patient's labs are overall reassuring, her COVID is negative, EKG shows no acute changes from priors, CT abdomen pelvis was obtained which does not show any acute intra-abdominal changes she does have significant osteoarthritic changes and old fractures. Urine does show hematuria and bacteria. She was given been dose of Rocephin she has received Zofran and, Benadryl for nausea. She continues to have some nausea but no active vomiting at this time. No other acute changes appreciated. Discharge Plan Departure Patient Disposition: Home Clinical Impression: Nausea & vomiting, Acute UTI Instructions: DI for Urinary Tract Infection (UTI) Activity Restrictions/Additional Instructions: Follow-up with your physician for recheck. Your urine shows signs of infection. Your labs and CT imaging otherwise show no acute changes today. Take antibiotics until completely gone. You do not have to start your oral antibiotics until tomorrow. Take antinausea 1 tablet every 6 hours as needed. Prescription sent to [facility] in [place]. Please return for fevers, passing out, new chest pain or shortness of breath, persistent vomiting, new swelling in her extremities, black or bloody stools or other new or concerning symptoms. Prescriptions: New ondansetron 4 mg tablet,disintegrating 4 mg PO Q6H PRN (Reason: nausea and vomiting) Qty: 10 0RF cephalexin 500 mg capsule 500 mg PO BID 7 Days Qty: 14 0RF No Action meclizine 25 mg tablet 25 mg PO DAILY PRN (Reason: dizziness) Qty: 20 0RF methotrexate sodium 25 mg/mL solution 0.8 ml IM QWEEK 0RF Label Comments: saturdays omeprazole 40 mg capsule,delayed release(DR/EC) 40 mg PO DAILY 0RF spironolactone 50 mg tablet 100 mg PO QAM 0RF nystatin 100,000 unit/gram Ointment 1 applic TOPICAL BID 0RF alendronate 70 mg tablet 70 mg PO QWEEK Qty: 4 0RF ondansetron HCl [Zofran] 4 mg Tablet 4 mg PO Q4H PRN (Reason: Nausea) 0RF nitrofurantoin macrocrystal [Macrodantin] 100 mg Capsule 100 mg PO Q12-24H 0RF Rx Instructions: Take 1 tab with food every other day codeine-guaifenesin [Guaifenesin AC] 10-100 mg/5 mL Liquid 2.5 ml PO Q4H PRN (Reason: Cough) 0RF folic acid 800 mcg Tablet 0.8 mg PO DAILY 0RF zoledronic [id number] [Reclast] 5 mg/100 mL Piggyback 5 mg IV PER PKG DIR 0RF Rx Instructions: as directed intravenously once a year in February cholecalciferol (vitamin D3) [Vitamin D3] 2,000 unit Tablet 2,000 unit PO DAILY 0RF methocarbamol 500 mg Tablet 500 mg PO TID PRN (Reason: Muscle Spasm) Qty: 90 0RF sennosides [senna] 8.6 mg Tablet 8.6 mg PO PRN PRN (Reason: Constipation) Qty: 30 0RF polyethylene glycol 3350 17 gram Powder In Packet 17 gram PO DAILY Qty: 30 0RF magnesium hydroxide [Milk of Magnesia] 400 mg/5 mL Suspension 30 ml PO DAILY PRN (Reason: Constipation) Qty: 3840 0RF calcitonin (salmon) 200 unit/actuation [place],Non-Aerosol 1 spray intranasal DAILY Qty: 3.7 0RF lidocaine 5 % Adhesive Patch,Medicated 1 patch topical BEDTIME Qty: 10 0RF Rx Instructions: Remove daily at bedtime lidocaine 5 % Adhesive Patch,Medicated 1 patch topical DAILY Qty: 10 0RF docusate sodium [DOK] 100 mg Capsule 100 mg PO BID Qty: 60 0RF oxycodone 5 mg Tablet 2.5 mg PO Q4HR PRN (Reason: Pain, Moderate (4-6)) Qty: 10 0RF hydrocodone-acetaminophen 10-325 mg Tablet 1 tab PO Q4H PRN (Reason: Back Pain) Qty: 60 0RF bisacodyl 10 mg suppository 10 mg GA DAILY PRN (Reason: constipation) Qty: 10 0RF Referrals: Alen Garsia MD [Primary Care Provider] -
--- NOTE | 2021-11-17 07:45 | DI.CT.S_ITS ---
PROCEDURE: CT ABDOMEN PELVIS W CON INDICATIONS: n/v x 2 days. TECHNIQUE: After the administration of intravenous contrast, axial sections acquired from the lung bases to the pubic symphysis. Coronal and sagittal reformats were performed. For radiation dose reduction, the following was used: automated exposure control, adjustment of mA and/or kV according to patient size. COMPARISON: [facility], CT, CT ABDOMEN PELVIS W CON, 07/27/2020, 16:24. FINDINGS: Image quality: Excellent. Lung bases: Very minimal bibasilar atelectasis.. Heart: No significant findings. ABDOMEN: Liver: Unremarkable. Gallbladder: Unremarkable. Biliary ducts: Unremarkable. Pancreas: Unremarkable. Spleen: Unremarkable. Adrenal Glands: Unremarkable. Kidneys and Ureters: Unremarkable. Stomach and Bowel: Sigmoid diverticulosis. No dilated loops of bowel. No bowel wall thickening. Peritoneum: No abnormal intraperitoneal fluid. No free air. Ventral Wall: No hernias. Abdominal Nodes: No retroperitoneal or mesenteric adenopathy by size criteria. Vessels: Aorta and inferior vena cava are normal in size. Incidental note is made of the presence of a dilated left gonadal vein and left paraovarian varicosities. PELVIS: Pelvic Organs: Uterus is surgically absent. Bladder: Unremarkable. Pelvic Nodes: No enlarged lymph nodes. Miscellaneous: No hernias are seen. Bones: Chronic compressions of L2, L3, and L4. Levocurvature of the lumbar spine centered L3. Remote left pubic symphysis and left ischial fractures. Left hip arthroplasty. Screw fixation of the sacrum. IMPRESSION: 1. No evidence of acute abdominal process. 2. Sigmoid diverticulosis. 3. Severe osteoporosis with numerous chronic fractures. Dictated by: Alcon Neal M.D. on 11/17/2021 at 8:20 Approved by: Alcon Neal M.D. on 11/17/2021 at 8:25
[2021-11-17] MEDS: SODIUM CHLORIDE 0.9% 1,000 ML 1000 ML IV (07:50)
[2021-11-17] MEDS: diphenhydrAMINE 50 MG/ML VIAL 25 MG IV (08:02)
[2021-11-17 08:10] LABS: Add Manual Diff / Slide Review NO; Alanine Aminotransferase 11 IU/L (<35); Albumin 4.1 g/dL (3.5-5.0); Albumin Globulin Ratio 1.7 (1.0-2.8); Alkaline Phosphatase 44 U/L (38-126); Aspartate Aminotransferase 25 IU/L (14-36); BUN Creatinine Ratio 12.7 (6-22); Basophils Absolute Auto 0 /uL (0-100); Basophils Percent Auto 0.5 % (0-2); Bilirubin Total 0.7 mg/dL (0.2-1.3); Blood Urea Nitrogen 8 mg/dL (7-17); Calcium 9.4 mg/dL (8.4-10.2); Carbon Dioxide 32 mmol/L (22-32); Chloride 93 mmol/L (98-107); Eosinophils Absolute Auto 100 /uL (0-450); Eosinophils Percent Auto 0.9 % (2-4); Estimated Glomerular Filt Rate > 60.0 mL/min (>60); Globulin 2.4 g/dL (1.7-4.1); Glucose 88 mg/dL (80-110); HEMOLYSIS < 15 (0-50); Hematocrit 39.1 % (36-46); Hemoglobin 12.8 g/dL (12.0-16.0); Lipase 31 U/L (23-300); Lymphocytes Absolute Auto 2100 /uL (1100-4500); Lymphocytes Percent Auto 22.7 % (25-40); Mean Corpuscular HGB Conc 32.8 % (30-36); Mean Corpuscular Hemoglobin 33.1 PG (26-34); Mean Corpuscular Volume 101.2 fL (80-100); Monocytes Absolute Auto 900 /uL (0-900); Monocytes Percent Auto 9.3 % (3-14); Neutrophils Absolute Auto 6200 /uL (1500-7000); Neutrophils Percent Auto 66.6 % (50-75); Platelet Count 354 X10^3/uL (150-400); Potassium 4.1 mmol/L (3.4-5.1); Red Blood Cell Count 3.86 X10^6/uL (4.0-5.2); Red Cell Distribution Width 15.9 % (11.6-14.8); Sodium 128 mmol/L (137-145); Total Protein 6.5 g/dL (6.3-8.2); White Blood Cell Count 9.3 X10^3/uL (4.5-11.0)
[2021-11-17 08:40] LABS: Thyroid Stimulating Hormone 2.22 uIU/mL (0.47-4.68)
[2021-11-17 09:26] LABS: Bacteria Urine Few (2-10); Culture Indicated Urine Cult Not Indicated; RBC Urine 5-10/HPF (0-5/HPF); Squamous Epithelial Cell Urine 0-1 /HPF (0-5/HPF); WBC Urine 0-1/HPF (0-5/HPF)
[2021-11-17 09:44] LABS: COVID19 -Nasal RAPID Negative (Negative)
[2021-11-17] MEDS: cefTRIAXone 2,000 MG in SODIUM CHLORIDE 0.9% 100 ML 200 ML IV (09:51)
[2021-11-17] MEDS: KETOROLAC 30 MG/ML VIAL 15 MG IV (11:50)
== END 2021-11-17 12:10 | disposition home or self-care (01) ==
PROVIDERS: Emergency Provider Emergency Medicine; PCP Internal Medicine
DX: R11.2 Nausea with vomiting, unspecified (principal); N39.0 Urinary tract infection, site not specified; Z20.822 Contact with and (suspected) exposure to COVID-19
CPT/HCPCS: 36415; 74177; 80053; 81003; 81015; 82962; 83690; 84443; 85025; 87635; 93005; 96361; 96365; 96375; 96376; 99284; C9803; J0696; J1200; J1885; J2405; Q9967

== ENCOUNTER 2021-12-03 08:53 | Inpatient (IN) | payer MEDICARE, OTHER, SELFPAY ==
[2019-10-28 01:25] VITALS: BMI 17.5
[2021-12-03] VITALS (37 sets, daily range): BP systolic 108–162; BP diastolic 60–99; PULSE 99–120; RESP 10–25; TEMP 36.7–37.8; O2SAT 90–100; BMI 17.7
--- NOTE | 2021-12-03 09:08 | DI.RAD.S_ITS ---
PROCEDURE: XR CHEST 1V INDICATIONS: sepsis TECHNIQUE: One view of the chest was acquired. COMPARISON: [facility], CR, XR CHEST 1V, 09/14/2019, 17:43. FINDINGS: Surgical changes and devices: None. Lungs and pleura: Chronic interstitial changes are present. There is blunting of the costophrenic angles bilaterally. Mediastinum: Mediastinal contours appear normal. Heart size is normal. Bones and chest wall: No suspicious bony lesions. Overlying soft tissues appear unremarkable. IMPRESSION: Chronic interstitial changes with likely scarring at the costophrenic angles. Dictated by: Ximena Varela M.D. on 12/03/2021 at 9:37 Approved by: Ximena Varela M.D. on 12/03/2021 at 9:37
[2021-12-03 09:14] LABS: Add Manual Diff / Slide Review NO; Basophils Absolute Auto 0 /uL (0-100); Basophils Percent Auto 0.4 % (0-2); Eosinophils Absolute Auto 0 /uL (0-450); Eosinophils Percent Auto 0.3 % (2-4); Hematocrit 41.8 % (36-46); Hemoglobin 13.8 g/dL (12.0-16.0); Lymphocytes Absolute Auto 1200 /uL (1100-4500); Lymphocytes Percent Auto 15.5 % (25-40); Mean Corpuscular Hemoglobin 33.8 PG (26-34); Mean Corpuscular Volume 102.5 fL (80-100); Monocytes Absolute Auto 900 /uL (0-900); Monocytes Percent Auto 11.8 % (3-14); Neutrophils Absolute Auto 5700 /uL (1500-7000); Platelet Count 446 X10^3/uL (150-400); Red Blood Cell Count 4.08 X10^6/uL (4.0-5.2); Red Cell Distribution Width 15.5 % (11.6-14.8); White Blood Cell Count 7.9 X10^3/uL (4.5-11.0)
[2021-12-03 09:21] LABS: Alanine Aminotransferase 9 IU/L (<35); Albumin 3.9 g/dL (3.5-5.0); Albumin Globulin Ratio 1.5 (1.0-2.8); Alkaline Phosphatase 69 U/L (38-126); Aspartate Aminotransferase 29 IU/L (14-36); BUN Creatinine Ratio 8.5 (6-22); Bilirubin Total 0.7 mg/dL (0.2-1.3); Blood Urea Nitrogen 5 mg/dL (7-17); Calcium 9.4 mg/dL (8.4-10.2); Carbon Dioxide 24 mmol/L (22-32); Chloride 93 mmol/L (98-107); Creatine Kinase 54 U/L (30-135); Estimated Glomerular Filt Rate > 60.0 mL/min (>60); Globulin 2.6 g/dL (1.7-4.1); Glucose 79 mg/dL (80-110); HEMOLYSIS < 15 (0-50); Lipase 36 U/L (23-300); Potassium 3.9 mmol/L (3.4-5.1); Sodium 132 mmol/L (137-145); Total Protein 6.5 g/dL (6.3-8.2)
[2021-12-03] MEDS: SODIUM CHLORIDE 0.9% 1,000 ML 1000 ML IV ×2 (09:29→10:44)
[2021-12-03 09:33] LABS: Troponin I 0.015 ng/mL (0.01-0.034)
[2021-12-03 09:38] LABS: Procalcitonin 0.06 ng/mL (<0.5)
--- NOTE | 2021-12-03 09:57 | ED.NAVMDI ---
HPI - Nausea/Vomiting/Diarrhea General Chief complaint: Nausea/Vomiting/Diarrhea Stated complaint: Nausea and vomiting X 3 weeks Time Seen by Provider: 12/03/21 09:04 Source: patient Mode of arrival: EMS Limitations: no limitations History of Present Illness HPI Narrative: This is an 81-year-old female who presents with persistent nausea for the past 3 weeks. Patient was seen here on 11/17/2020 for similar symptoms was found to have a possible UTI and started antibiotics. Patient has continued to have symptoms. Patient has had nausea in the past but has not had persistent vomiting. She was discharged home with Zofran, oral antibiotics which did not seem to be helpful. She is given a suppository which is likely Phenergan she does not recall the name has not found this helpful either. She has not been using it for the last several days because it irritates her hemorrhoids. Patient denies fevers or chills. No lightheadedness or passing out. She denies any chest pain or shortness of breath. She has persistent nausea and states she is vomiting any time she tries to take liquids or solids. She states she does have abdominal pain but it seems to be more related for the persistent vomiting. She has had bowel movements which she states are formed had a reddish brown. She denies any dysuria, urgency or frequency. Patient states she has had EGD and colonoscopy in the past. Related Data Home Medications Medication Instructions Recorded Confirmed methotrexate sodium 25 mg/mL 0.8 ml IM QWEEK 09/29/18 10/29/19 injection solution nystatin 100,000 unit/gram topical 1 applic TOPICAL BID 09/29/18 09/15/19 ointment omeprazole 40 mg capsule,delayed 40 mg PO DAILY 09/29/18 10/28/19 release spironolactone 50 mg tablet 100 mg PO QAM 09/29/18 10/28/19 cholecalciferol (vitamin D3) 50 2,000 unit PO DAILY 10/28/19 10/28/19 mcg (2,000 unit) tablet (Vitamin D3) codeine 10 mg-guaifenesin 100 mg/5 2.5 ml PO Q4H PRN 10/28/19 10/28/19 mL oral liquid (Guaifenesin AC) folic acid 800 mcg tablet 0.8 mg PO DAILY 10/28/19 10/28/19 nitrofurantoin macrocrystal 100 mg 100 mg PO Q12-24H 10/28/19 10/28/19 capsule (Macrodantin) ondansetron HCl 4 mg tablet 4 mg PO Q4H PRN 10/28/19 10/28/19 (Zofran) zoledronic acid 5 mg/100 mL in 5 mg IV PER PKG DIR 10/28/19 10/28/19 mannitol 5 %-water intravenous piggybck (Reclast) Previous Rx's Medication Instructions Recorded alendronate 70 mg tablet 70 mg PO QWEEK #4 tab 10/04/18 bisacodyl 10 mg rectal suppository 10 mg TX DAILY PRN #10 each 11/01/19 calcitonin (salmon) 200 1 spray INTRANASAL DAILY #3.7 ml 11/01/19 unit/actuation nasal spray docusate sodium 100 mg capsule 100 mg PO BID #60 cap 11/01/19 (DOK) hydrocodone 10 mg-acetaminophen 1 tab PO Q4H PRN #60 tab 11/01/19 325 mg tablet lidocaine 5 % topical patch 1 patch TOPICAL BEDTIME #10 ea 11/01/19 lidocaine 5 % topical patch 1 patch TOPICAL DAILY #10 ea 11/01/19 magnesium hydroxide 400 mg/5 mL 30 ml PO DAILY PRN #3840 ml 11/01/19 oral suspension (Milk of Magnesia) methocarbamol 500 mg tablet 500 mg PO TID PRN #90 tab 11/01/19 oxycodone 5 mg tablet 2.5 mg PO Q4HR PRN #10 tab 11/01/19 polyethylene glycol 3350 17 gram 17 gram PO DAILY #30 each 11/01/19 oral powder packet sennosides 8.6 mg tablet (senna) 8.6 mg PO PRN PRN #30 tab 11/01/19 meclizine 25 mg tablet 25 mg PO DAILY PRN #20 tab 07/27/20 ondansetron 4 mg disintegrating 4 mg PO Q6H PRN #10 tab 11/17/21 tablet Allergies Allergy/AdvReac Type Severity Reaction Status Date / Time codeine Allergy Verified 07/09/21 22:19 morphine AdvReac Severe Vomiting Verified 07/09/21 22:19 meperidine [MEPERIDINE] AdvReac Unknown VOMITING Verified 07/09/21 22:19 oxycodone [OXYCODONE] AdvReac Unknown NAUSEA Verified 07/09/21 22:19 Review of Systems Review of Systems ROS Unobtainable: All systems reviewed & are unremarkable except as noted in HPI and below Patient History Medical History (Updated 12/03/21 @ 13:59 by Yoon Bocanegra DO) GERD (gastroesophageal reflux disease) Peripheral edema Rheumatoid arthritis Surgical History History of hand surgery History of total left knee replacement History of total right knee replacement Status post total hip replacement, left Status post wrist surgery Family History Mother No problems noted. Father No problems noted. Social History household members: spouse Smoking Status: Never smoker alcohol intake: current Smoking Status: Never smoker alcohol intake frequency: holidays/special occasions only Substance Use Type: does not use Exam Narrative Exam Narrative: GEN: Elderly female, alert and oriented x 3, patient appears to be in mild distress. HEENT: Atraumatic, pupils are equal round reactive to light, extraocular movements are intact, nares are clear. Throat is clear without any exudates, erythema, tonsillar enlargement or uvular deviation HEART: Regular rate and rhythm without murmur, clicks, rubs. No carotid bruits, pulses are equal in upper and lower extremities. No JVD. No swelling bilateral lower extremities. LUNGS:Lungs clear to auscultation, no wheezes, rales, crackles, chest moves symmetrically ABD:bowel sounds normal, soft, non-tender, no guarding, rebound, rigidity, no masses noted, no hepatosplenomegaly :No CVA tenderness MSCL: Non-tender, no muscle atrophy, muscles strength 5/5 upper and lower extremities, full range of motion. NEURO:CN 2-12 intact, sensation normal, patient has baseline tremor present. SKIN: No rash, erythema or skin changes. Initial Vital Signs Initial Vital Signs: Vital Signs Temperature 98.8 F 12/03/21 09:07 Pulse Rate 115 H 12/03/21 09:07 Respiratory Rate 17 12/03/21 09:07 Blood Pressure 146/71 H 12/03/21 09:07 Pulse Oximetry 96 12/03/21 09:07 Course Orders Ordered: ED Orders 12/03/21 11:56 Urinalysis and Microscopic Stat Urine Culture Stat 12/03/21 13:07 Troponin I Stat 12/03/21 13:08 EKG-12 Lead Routine Acetaminophen (Acetaminophen 325 Mg Tablet) 975 mg PO Q8HR PRN PRN Reason: pain Hydrocodone Bitart/Acetaminophen (Hydrocodone/Acet 10/325 Tablet) 1 tab PO Q4HR PRN PRN Reason: Pain, Severe (7-10) Diphenhydramine HCl (Diphenhydramine 50 Mg/Ml Vial) 25 mg IV BEDTIME PRN PRN Reason: insomnia Enoxaparin Sodium (Enoxaparin 40 Mg/0.4 Ml Syringe) 40 mg SUBCUT DAILY ALDO Lactated Ringer's (Lactated Ringers) 1,000 mls @ 75 mls/hr IV CONT ALDO Last Admin: 12/03/21 16:56 Dose: 75 mls/hr Documented by: GREGORIO Ceftriaxone Sodium 1,000 mg/ (Sodium Chloride) 100 mls @ 200 mls/hr IV Q24H ALDO Metoclopramide HCl (Metoclopramide 10 Mg/2 Ml Inj) 10 mg IV Q6HR PRN PRN Reason: Nausea And Vomiting Naloxone HCl (Naloxone 0.4 Mg/Ml Vial) 0.2 mg IV Q2MIN PRN PRN Reason: Opiate Reversal Ondansetron HCl (Ondansetron 4 Mg/2 Ml Inj) 4 mg IV Q8HR PRN PRN Reason: Nausea And Vomiting Promethazine HCl (Promethazine 25 Mg Tablet) 12.5 mg PO Q6HR PRN PRN Reason: Nausea Discontinued Medications Hydrocodone Bitart/Acetaminophen (Hydrocodone/Acet 10/325 Tablet) 1 tab PO NOW ONE Stop: 12/03/21 10:55 Last Admin: 12/03/21 11:13 Dose: 1 tab Documented by: EVA Diphenhydramine HCl (Diphenhydramine 50 Mg/Ml Vial) 25 mg IV NOW ONE Stop: 12/03/21 09:53 Last Admin: 12/03/21 10:02 Dose: 25 mg Documented by: EVA Sodium Chloride (Normal Saline 0.9%) 1,000 mls @ 1,000 mls/hr IV BOLUS ONE Stop: 12/03/21 10:08 Last Infusion: 12/03/21 10:44 Dose: 0 mls/hr Documented by: Admin: 12/03/21 09:29 Dose: 1,000 mls/hr Documented by: EVA Sodium Chloride (Normal Saline 0.9%) 1,000 mls @ 1,000 mls/hr IV BOLUS ONE Stop: 12/03/21 11:04 Last Infusion: 12/03/21 12:13 Dose: 0 mls/hr Documented by: Admin: 12/03/21 10:44 Dose: 1,000 mls/hr Documented by: EVA Ceftriaxone Sodium 2,000 mg/ (Sodium Chloride) 100 mls @ 200 mls/hr IV NOW ONE Stop: 12/03/21 13:59 Last Infusion: 12/03/21 15:12 Dose: 0 mls/hr Documented by: Admin: 12/03/21 14:48 Dose: 200 mls/hr Documented by: TAM Meclizine HCl (Meclizine Hcl 12.5 Mg Tablet) 50 mg PO NOW ONE Stop: 12/03/21 12:48 Last Admin: 12/03/21 12:53 Dose: 50 mg Documented by: TAM Reevaluation(s) Reevaluation #1: Patient has not had persistent vomiting but has been slightly tachycardic. She does not know any history of AFib. She appears to have P waves majority of time but not always consistently. Also discussed if she has had any vertigo symptoms recently. She does not he clearly feel any symptom changes with movement of her head. She is able to stand to go to the commode but has significant weakness with nursing. She is persistently nauseated and would like very much to be admitted. Consultations Consultation #1: Dr. Quiroz, hospitalist accepts for observation of for persistent nausea, tachycardia, possible UTI and generalized weakness. Patient's labs are reassuring, reviewed her EKG and telemetry changes today. Imaging today which shows no acute findings. That there may be a component of vertigo but this is not clearly found. She has had vertigo in the past. Vital Signs Vital signs: Vital Signs - 8 hr 12/03/21 12:00 12/03/21 12:08 12/03/21 12:30 Temperature Pulse Rate 110 H 108 H 108 H Respiratory Rate 16 12 10 L Blood Pressure 122/75 125/66 Pulse Oximetry 97 98 12/03/21 13:00 12/03/21 13:30 12/03/21 14:00 Temperature Pulse Rate 120 H 107 H 109 H Respiratory Rate 18 12 25 H Blood Pressure 135/79 108/68 Pulse Oximetry 90 L 98 99 12/03/21 14:01 12/03/21 14:32 12/03/21 14:35 Temperature Pulse Rate 110 H 110 H 103 H Respiratory Rate 20 15 Blood Pressure 113/81 127/69 Pulse Oximetry 99 97 98 12/03/21 15:04 Temperature 100.0 F H Pulse Rate Respiratory Rate 16 Blood Pressure 132/68 Pulse Oximetry 99 MDM - Nausea/Vomiting/Diarrhea Lab Data Result diagrams: 12/03/21 09:10 12/03/21 09:10 Labs: Lab Results 12/03/21 12/03/21 12/03/21 Range/Units 09:10 09:10 09:10 WBC 7.9 (4.5-11.0) X10^3/uL RBC 4.08 (4.0-5.2) X10^6/uL Hgb 13.8 (12.0-16.0) g/dL Hct 41.8 (36-46) % MCV 102.5 H (80-100) fL MCH 33.8 (26-34) PG MCHC 33.0 (30-36) % RDW 15.5 H (11.6-14.8) % Plt Count 446 H (150-400) X10^3/uL Neut % (Auto) 72.0 (50-75) % Lymph % (Auto) 15.5 L (25-40) % [place] % (Auto) 11.8 (3-14) % Eos % (Auto) 0.3 L (2-4) % Baso % (Auto) 0.4 (0-2) % Neut # (Auto) 5700 (6828-9917) /uL Lymph # (Auto) 1200 (6564-3481) /uL [place] # (Auto) 900 (0-900) /uL Eos # (Auto) 0 (0-450) /uL Baso # (Auto) 0 (0-100) /uL Sodium 132 L (137-145) mmol/L Potassium 3.9 (3.4-5.1) mmol/L Chloride 93 L (98-107) mmol/L Carbon Dioxide 24 (22-32) mmol/L BUN 5 L (7-17) mg/dL Creatinine 0.59 (0.52-1.04) mg/dL Estimated GFR > 60.0 (>60) mL/min BUN/Creatinine Ratio 8.5 (6-22) Glucose 79 L (80-110) mg/dL Lactate (0.7-2.1) mmol/L Calcium 9.4 (8.4-10.2) mg/dL Total Bilirubin 0.7 (0.2-1.3) mg/dL AST 29 (14-36) IU/L ALT 9 (<35) IU/L Alkaline Phosphatase 69 (38-126) U/L Total Creatine Kinase 54 (30-135) U/L CK-MB (CK-2) TNP CK-MB (CK-2) Rel Index TNP Troponin I 0.015 (0.01-0.034) ng/mL Total Protein 6.5 (6.3-8.2) g/dL Albumin 3.9 (3.5-5.0) g/dL Globulin 2.6 (1.7-4.1) g/dL Albumin/Globulin Ratio 1.5 (1.0-2.8) Lipase 36 (23-300) U/L Procalcitonin 0.06 (<0.5) ng/mL Urine Color Urine Appearance Urine pH (4.5-8.0) Ur Specific Hosmer (1.000-1.035) Urine Protein (Negative) Urine Glucose (UA) (Negative) g/dL Urine Ketones (NEGATIVE) Urine Occult Blood (Negative) Urine Nitrate (Negative) Urine Bilirubin (NEGATIVE) Urine Urobilinogen (0.2) E.U./dL Ur Leukocyte Esterase (NEGATIVE) Urine RBC (0-5/HPF) Urine WBC (0-5/HPF) Ur Squamous Epith Cells (0-5/HPF) Urine Bacteria (None) Hyaline Casts (None) Ur Culture Indicated? SARS-CoV-2 (PCR) (Negative) 12/03/21 12/03/21 12/03/21 Range/Units 09:30 09:50 11:56 WBC (4.5-11.0) X10^3/uL RBC (4.0-5.2) X10^6/uL Hgb (12.0-16.0) g/dL Hct (36-46) % MCV (80-100) fL MCH (26-34) PG MCHC (30-36) % RDW (11.6-14.8) % Plt Count (150-400) X10^3/uL Neut % (Auto) (50-75) % Lymph % (Auto) (25-40) % [place] % (Auto) (3-14) % Eos % (Auto) (2-4) % Baso % (Auto) (0-2) % Neut # (Auto) (0262-6051) /uL Lymph # (Auto) (5978-9421) /uL [place] # (Auto) (0-900) /uL Eos # (Auto) (0-450) /uL Baso # (Auto) (0-100) /uL Sodium (137-145) mmol/L Potassium (3.4-5.1) mmol/L Chloride (98-107) mmol/L Carbon Dioxide (22-32) mmol/L BUN (7-17) mg/dL Creatinine (0.52-1.04) mg/dL Estimated GFR (>60) mL/min BUN/Creatinine Ratio (6-22) Glucose (80-110) mg/dL Lactate 1.4 (0.7-2.1) mmol/L Calcium (8.4-10.2) mg/dL Total Bilirubin (0.2-1.3) mg/dL AST (14-36) IU/L ALT (<35) IU/L Alkaline Phosphatase (38-126) U/L Total Creatine Kinase (30-135) U/L CK-MB (CK-2) CK-MB (CK-2) Rel Index Troponin I (0.01-0.034) ng/mL Total Protein (6.3-8.2) g/dL Albumin (3.5-5.0) g/dL Globulin (1.7-4.1) g/dL Albumin/Globulin Ratio (1.0-2.8) Lipase (23-300) U/L Procalcitonin (<0.5) ng/mL Urine Color Yellow Urine Appearance Sl cloudy Urine pH 5.0 (4.5-8.0) Ur Specific Hosmer 1.015 (1.000-1.035) Urine Protein Trace H (Negative) Urine Glucose (UA) Negative (Negative) g/dL Urine Ketones 2+ H (NEGATIVE) Urine Occult Blood 3+ H (Negative) Urine Nitrate Negative (Negative) Urine Bilirubin Negative (NEGATIVE) Urine Urobilinogen 0.2 (0.2) E.U./dL Ur Leukocyte Esterase Trace H (NEGATIVE) Urine RBC 1-5/hpf (0-5/HPF) Urine WBC 5-10/hpf H (0-5/HPF) Ur Squamous Epith Cells 1-5 /hpf (0-5/HPF) Urine Bacteria Moderate (10-30) H (None) Hyaline Casts 1-5/lpf (None) Ur Culture Indicated? Specimen cultured SARS-CoV-2 (PCR) Negative (Negative) 12/03/21 Range/Units 13:07 WBC (4.5-11.0) X10^3/uL RBC (4.0-5.2) X10^6/uL Hgb (12.0-16.0) g/dL Hct (36-46) % MCV (80-100) fL MCH (26-34) PG MCHC (30-36) % RDW (11.6-14.8) % Plt Count (150-400) X10^3/uL Neut % (Auto) (50-75) % Lymph % (Auto) (25-40) % [place] % (Auto) (3-14) % Eos % (Auto) (2-4) % Baso % (Auto) (0-2) % Neut # (Auto) (6373-8796) /uL Lymph # (Auto) (3078-7721) /uL [place] # (Auto) (0-900) /uL Eos # (Auto) (0-450) /uL Baso # (Auto) (0-100) /uL Sodium (137-145) mmol/L Potassium (3.4-5.1) mmol/L Chloride (98-107) mmol/L Carbon Dioxide (22-32) mmol/L BUN (7-17) mg/dL Creatinine (0.52-1.04) mg/dL Estimated GFR (>60) mL/min BUN/Creatinine Ratio (6-22) Glucose (80-110) mg/dL Lactate (0.7-2.1) mmol/L Calcium (8.4-10.2) mg/dL Total Bilirubin (0.2-1.3) mg/dL AST (14-36) IU/L ALT (<35) IU/L Alkaline Phosphatase (38-126) U/L Total Creatine Kinase (30-135) U/L CK-MB (CK-2) CK-MB (CK-2) Rel Index Troponin I 0.017 (0.01-0.034) ng/mL Total Protein (6.3-8.2) g/dL Albumin (3.5-5.0) g/dL Globulin (1.7-4.1) g/dL Albumin/Globulin Ratio (1.0-2.8) Lipase (23-300) U/L Procalcitonin (<0.5) ng/mL Urine Color Urine Appearance Urine pH (4.5-8.0) Ur Specific [place] (1.000-1.035) Urine Protein (Negative) Urine Glucose (UA) (Negative) g/dL Urine Ketones (NEGATIVE) Urine Occult Blood (Negative) Urine Nitrate (Negative) Urine Bilirubin (NEGATIVE) Urine Urobilinogen (0.2) E.U./dL Ur Leukocyte Esterase (NEGATIVE) Urine RBC (0-5/HPF) Urine WBC (0-5/HPF) Ur Squamous Epith Cells (0-5/HPF) Urine Bacteria (None) Hyaline Casts (None) Ur Culture Indicated? SARS-CoV-2 (PCR) (Negative) Point of Care Testing Glucose POC 79 Imaging Data Chest x-ray: Radiologist's Impression: Launch?Image [address] [address] XRay Report Signed Patient: Mariely Man MR#: [id number] : 1940 Acct:[id number] Age/Sex: 81 / F Date of Service: 12/03/21 Loc: ED Accession Number: [id number] ?? Procedure: XR chest 1V Ordering Provider: Yoon Bocanegra D.O. PROCEDURE:? XR CHEST 1V ? INDICATIONS:? sepsis ? TECHNIQUE:? One view of the chest was acquired.? ? COMPARISON:? [facility], CR, XR CHEST 1V, 09/14/2019, 17:43. ? FINDINGS:? ? Surgical changes and devices:? None.? ? Lungs and pleura:? Chronic interstitial changes are present.? There is blunting of the costophrenic angles bilaterally.? ? Mediastinum:? Mediastinal contours appear normal.? Heart size is normal.? ? Bones and chest wall:? No suspicious bony lesions.? Overlying soft tissues appear unremarkable.? ? IMPRESSION:? Chronic interstitial changes with likely scarring at the costophrenic angles. ? ? Dictated by: Ximena Varela M.D. on 12/03/2021 at 9:37 ? ? Approved by: Ximena Varela M.D. on 12/03/2021 at 9:37?? CT scan - abdomen/pelvis: Radiologist's Impression: [place] [address] CT Scan Report Signed Patient: Mariely Man MR#: [id number] : 1940 Acct:[id number] Age/Sex: 81 / F Date of Service: 12/03/21 Loc: ED Accession Number: [id number] ?? Procedure: CT abdomen pelvis w con Ordering Provider: Yoon Bocanegra D.O. PROCEDURE:? CT ABDOMEN PELVIS W CON ? INDICATIONS:? n/v persistent and worsening, abd pain ? TECHNIQUE:? After the administration of IV contrast, axial sections were acquired from the lung bases to the pubic symphysis.? Coronal and sagittal reformats were performed.? For radiation dose reduction, the following was used:? automated exposure control, adjustment of mA and/or kV according to patient size. ? COMPARISON:? [facility], CT, CT CHEST ABD PEL W CON, 09/03/2020, 20:44.? [facility], CT, CT ABDOMEN PELVIS W CON, 07/27/2020, 16:24.? [facility], CT, CT ABDOMEN PELVIS W CON, 11/17/2021, 9:00. ? FINDINGS:? Image quality:? Portions of the lower pelvis are suboptimally evaluated secondary to metallic streak artifact from sacral fusion hardware and left hip arthroplasty.. ? Lung bases:? Unremarkable.? ? Heart:? No significant findings. ? ? ABDOMEN: Liver:? Hepatic steatosis is present.? There is a focal air presume fat sparing along the anterior lobe.? This is been present on multiple prior exams without change. Gallbladder:? Unremarkable.? ? Biliary ducts:? Unremarkable.? ? Pancreas:? Unremarkable.? ? Spleen:? Unremarkable.? ? Adrenal Glands:? Unremarkable.? ? Kidneys and Ureters:? Unremarkable.? ? ? Stomach and Bowel:? Stomach, small bowel loops, and colon are overall nonspecific.? There is mild fluid-filled appearance of scattered small bowel loops slightly more prominent when compared to prior exam.? Peritoneum:? No abnormal intraperitoneal fluid.? No free air.? ? Ventral Wall: ? No hernia.? Abdominal Nodes:? No retroperitoneal or mesenteric adenopathy by size criteria.? Vessels:? Aorta and inferior vena cava are normal in size.? ? PELVIS: Pelvic Organs:? Unremarkable.? ? Bladder:? Unremarkable.? ? Pelvic Nodes: No enlarged lymph nodes.? Miscellaneous: No inguinal hernias are seen. ? ? ? Bones:? Old left pubic ramus fracture is present.? Prominent scoliotic curvature is present with compression fractures at L2-3.? They are unchanged compared to 11/17 21 with the L3 compression fracture appearing worse compared to 2020. ? ? IMPRESSION:? ? Nonspecific gas pattern with mildly dilated loops of fluid-filled bowel.? This could be secondary to vomiting given clinical history.? Enteritis cannot be excluded. ? ? Dictated by: Ximena Varela M.D. on 12/03/2021 at 10:39 ? ? Approved by: Ximena Varela M.D. on 12/03/2021 at 10:50?? ECG Data Attestation: I personally reviewed and interpreted this ECG as follows: Prior ECG tracings: available for review Interpretation: Sinus tachycardia rate of 112 TX 190, QRS of 68 QTC 455. Patient does appear to have P waves with a QRS is. Patient has prior EKG Sinus tachycardia first-degree AV block. Rate of 118, P are 214 QRS is 70 QTC of 451. Patient has some motion artifact in V3 patient does have a baseline tremor which may be interfering difficult to tell if she has P waves present but does have some irregularity may have your premature atrial complexes or intermittent AFib. Patient's environmental monitoring technician read up to 218 but when reviewed the actual QRS complexes are not tachycardic to this degree and suspect that this is partially from patient's tremor. We placement was readjusted and patient heart rate is now in the 80s on a telemetry MDM Narrative Medical decision making narrative: This is an 81-year-old female presents for persistent nausea and vomiting that has been gradually worsening over time. Patient was seen by myself on the 17 of November. Found possible UTI was started on oral antibiotics but has continued to have symptoms. Patient's labs do not show acute changes, she has been mildly tachycardic during her stay said there was some motion artifact but she does appear to be persistently in the 100-110 range. Patient has been able to tolerate oral liquids but is quite weak when we attempt to ambulate or stand to the commode. No acute neurologic changes appreciated but patient has had history of vertigo. There may be some component of but she is able to move her head without issue. Her urine is suspicious for infection is cultured. She was given fluids, multiple antiemetics, meclizine and hospitalist kindly accepted for observation. Discharge Plan Departure Patient Disposition: Admitted as Observation Clinical Impression: Nausea, Weakness, Tachycardia, Acute UTI Admit Date/Time: 12/03/21 15:21 Admit Provider: Anil Quiroz
[2021-12-03] MEDS: diphenhydrAMINE 50 MG/ML VIAL 25 MG IV ×2 (10:02→20:21)
[2021-12-03 10:05] LABS: COVID19 -Nasal RAPID Negative (Negative)
--- NOTE | 2021-12-03 10:07 | DI.CT.S_ITS ---
PROCEDURE: CT ABDOMEN PELVIS W CON INDICATIONS: n/v persistent and worsening, abd pain TECHNIQUE: After the administration of IV contrast, axial sections were acquired from the lung bases to the pubic symphysis. Coronal and sagittal reformats were performed. For radiation dose reduction, the following was used: automated exposure control, adjustment of mA and/or kV according to patient size. COMPARISON: [facility], CT, CT CHEST ABD PEL W CON, 09/03/2020, 20:44. [facility], CT, CT ABDOMEN PELVIS W CON, 07/27/2020, 16:24. [facility], CT, CT ABDOMEN PELVIS W CON, 11/17/2021, 9:00. FINDINGS: Image quality: Portions of the lower pelvis are suboptimally evaluated secondary to metallic streak artifact from sacral fusion hardware and left hip arthroplasty.. Lung bases: Unremarkable. Heart: No significant findings. ABDOMEN: Liver: Hepatic steatosis is present. There is a focal air presume fat sparing along the anterior lobe. This is been present on multiple prior exams without change. Gallbladder: Unremarkable. Biliary ducts: Unremarkable. Pancreas: Unremarkable. Spleen: Unremarkable. Adrenal Glands: Unremarkable. Kidneys and Ureters: Unremarkable. Stomach and Bowel: Stomach, small bowel loops, and colon are overall nonspecific. There is mild fluid-filled appearance of scattered small bowel loops slightly more prominent when compared to prior exam. Peritoneum: No abnormal intraperitoneal fluid. No free air. Ventral Wall: No hernia. Abdominal Nodes: No retroperitoneal or mesenteric adenopathy by size criteria. Vessels: Aorta and inferior vena cava are normal in size. PELVIS: Pelvic Organs: Unremarkable. Bladder: Unremarkable. Pelvic Nodes: No enlarged lymph nodes. Miscellaneous: No inguinal hernias are seen. Bones: Old left pubic ramus fracture is present. Prominent scoliotic curvature is present with compression fractures at L2-3. They are unchanged compared to 11/17 21 with the L3 compression fracture appearing worse compared to 2019. IMPRESSION: Nonspecific gas pattern with mildly dilated loops of fluid-filled bowel. This could be secondary to vomiting given clinical history. Enteritis cannot be excluded. Dictated by: Ximena Varela M.D. on 12/03/2021 at 10:39 Approved by: Ximena Varela M.D. on 12/03/2021 at 10:50
[2021-12-03 10:17] LABS: Lactate (Lactic Acid) 1.4 mmol/L (0.7-2.1)
[2021-12-03] MEDS: HYDROCODONE/ACET 10/325 TABLET 1 TAB PO ×2 (11:13→21:07)
[2021-12-03 12:10] LABS: Appearance Urine UA SL CLOUDY; Bilirubin Urine UA NEGATIVE (NEGATIVE); Color Urine UA YELLOW; Glucose Urine UA NEGATIVE (Negative); Ketones Urine UA 2+ (NEGATIVE); Leukocyte Esterase Urine UA TRACE (NEGATIVE); Nitrite Urine UA NEGATIVE (Negative); Occult Blood Urine UA 3+ (Negative); Protein Urine UA TRACE (Negative); Specific Gravity Urine UA 1.015 (1.000-1.035); Urobilinogen Urine UA 0.2 E.U./dL (0.2)
[2021-12-03 12:31] LABS: Bacteria Urine Moderate (10-30); RBC Urine 1-5/HPF (0-5/HPF); Squamous Epithelial Cell Urine 1-5 /HPF (0-5/HPF); WBC Urine 5-10/HPF (0-5/HPF)
[2021-12-03 12:32] LABS: Culture Indicated Urine Specimen Cultured; Hyaline Casts Urine 1-5/LPF
[2021-12-03] MEDS: MECLIZINE HCL 12.5 MG TABLET 50 MG PO (12:53)
--- NOTE | 2021-12-03 13:23 | PC.NURSE ---
Attempted to get pt up and ambulate but pt was pretty unwilling to walk and would only walk a few steps even after much encouragement. Pt was slightly unsteady. Dr. Bocanegra informed.
[2021-12-03 13:37] LABS: Troponin I 0.017 ng/mL (0.01-0.034)
--- NOTE | 2021-12-03 13:53 | PC.NURSE ---
Pt's called and updated per pt request
[2021-12-03] MEDS: cefTRIAXone 2,000 MG in SODIUM CHLORIDE 0.9% 100 ML 200 ML IV (14:48)
--- NOTE | 2021-12-03 16:25 | P.HP_ITS ---
History of Present Illness History of Present Illness Date Patient Seen: 12/03/21 Time Patient Seen: 16:31 Chief complaint: Nausea and vomiting X 3 weeks Narrative: Ms. Mariely Man is a 77-year-old female with a past medical history significant for rheumatoid arthritis on methotrexate and prednisone, gastroesophageal reflux, intermittent nausea who presents with 3 weeks of persistent nausea and vomiting and inability to tolerate much oral intake. Patient states that for the past 3 weeks she has had intermittent nausea with persistent nonbloody and nonbilious vomiting. She denies any diarrhea, abdominal pain, melena or hematochezia, chest pain, palpitations, shortness of breath, fever. She does have some chills. She does not endorse any known sick contacts either. She has not been able to eat or drink much at all. She does endorse being able to take her chronic pain medications, but intermittently vomits when taking minimal liquids. She was evaluated in the emergency room recently and was diagnosed with a urinary tract infection and discharged home on Macrobid. There has not been much improvement in her symptoms since then, she actually thinks that she is slightly worsened. She does intermittently become dizzy, not particularly more notable with standing or positional changes. She denies any back pain, changes in her chronic arthritis. She does note that she had improvement with rectal Phenergan but this made her hemorrhoids worse. Patient History Medical History (Updated 12/03/21 @ 13:59 by Yoon Bocanegra DO) GERD (gastroesophageal reflux disease) Peripheral edema Rheumatoid arthritis Surgical History History of hand surgery History of total left knee replacement History of total right knee replacement Status post total hip replacement, left Status post wrist surgery Family & Social History Family History Mother No problems noted. Father No problems noted. Social History: household members spouse Prior Living Arrangements House Safety & Behavioral: Feels Safe in Current Yes Environment Been Physically Hurt or No Threatened By a Person Suicidal Ideation Description None Suicide Plan Description No Plan Tobacco & Substance use: Smoking Status Never smoker alcohol intake current alcohol intake frequency holiday/special occasion Substance Use Type does not use Meds Home Medications and Allergies Home Medications Medication Instructions Recorded Confirmed Type methotrexate sodium 25 mg/mL 0.8 ml IM QWEEK 09/29/18 10/29/19 History injection solution nystatin 100,000 unit/gram topical 1 applic TOPICAL BID 09/29/18 09/15/19 History ointment omeprazole 40 mg capsule,delayed 40 mg PO DAILY 09/29/18 10/28/19 History release spironolactone 50 mg tablet 100 mg PO QAM 09/29/18 10/28/19 History alendronate 70 mg tablet 70 mg PO QWEEK #4 tab 10/04/18 09/15/19 Rx cholecalciferol (vitamin D3) 50 2,000 unit PO DAILY 10/28/19 10/28/19 History mcg (2,000 unit) tablet (Vitamin D3) codeine 10 mg-guaifenesin 100 mg/5 2.5 ml PO Q4H PRN 10/28/19 10/28/19 History mL oral liquid (Guaifenesin AC) folic acid 800 mcg tablet 0.8 mg PO DAILY 10/28/19 10/28/19 History nitrofurantoin macrocrystal 100 mg 100 mg PO Q12-24H 10/28/19 10/28/19 History capsule (Macrodantin) ondansetron HCl 4 mg tablet 4 mg PO Q4H PRN 10/28/19 10/28/19 History (Zofran) zoledronic acid 5 mg/100 mL in 5 mg IV PER PKG DIR 10/28/19 10/28/19 History mannitol 5 %-water intravenous piggybck (Reclast) bisacodyl 10 mg rectal suppository 10 mg MI DAILY PRN #10 each 11/01/19 Rx calcitonin (salmon) 200 1 spray INTRANASAL DAILY #3.7 ml 11/01/19 Rx unit/actuation nasal spray docusate sodium 100 mg capsule 100 mg PO BID #60 cap 11/01/19 Rx (DOK) hydrocodone 10 mg-acetaminophen 1 tab PO Q4H PRN #60 tab 11/01/19 Rx 325 mg tablet lidocaine 5 % topical patch 1 patch TOPICAL BEDTIME #10 ea 11/01/19 Rx lidocaine 5 % topical patch 1 patch TOPICAL DAILY #10 ea 11/01/19 Rx magnesium hydroxide 400 mg/5 mL 30 ml PO DAILY PRN #3840 ml 11/01/19 Rx oral suspension (Milk of Magnesia) methocarbamol 500 mg tablet 500 mg PO TID PRN #90 tab 11/01/19 Rx oxycodone 5 mg tablet 2.5 mg PO Q4HR PRN #10 tab 11/01/19 Rx polyethylene glycol 3350 17 gram 17 gram PO DAILY #30 each 11/01/19 Rx oral powder packet sennosides 8.6 mg tablet (senna) 8.6 mg PO PRN PRN #30 tab 11/01/19 Rx meclizine 25 mg tablet 25 mg PO DAILY PRN #20 tab 07/27/20 Rx ondansetron 4 mg disintegrating 4 mg PO Q6H PRN #10 tab 11/17/21 Rx tablet Allergies Allergy/AdvReac Type Severity Reaction Status Date / Time codeine Allergy Verified 07/09/21 22:19 morphine AdvReac Severe Vomiting Verified 07/09/21 22:19 meperidine [MEPERIDINE] AdvReac Unknown VOMITING Verified 07/09/21 22:19 oxycodone [OXYCODONE] AdvReac Unknown NAUSEA Verified 07/09/21 22:19 Review of Systems Review of Systems Narrative: All other systems reviewed with the patient and are negative unless otherwise stated. Exam Vital Signs (past 8 hours): - 12/03/21 09:07 12/03/21 10:02 12/03/21 10:19 Temperature 98.8 F Pulse Rate 115 H 109 H 111 H Respiratory Rate 17 25 H 12 Blood Pressure 146/71 H 156/99 H 162/75 H Pulse Oximetry 96 97 95 12/03/21 10:30 12/03/21 11:00 12/03/21 11:30 Temperature Pulse Rate 106 H 105 H 110 H Respiratory Rate 13 17 15 Blood Pressure 151/73 H 134/72 Pulse Oximetry 97 97 97 12/03/21 11:31 12/03/21 12:00 12/03/21 12:08 Temperature Pulse Rate 111 H 110 H 108 H Respiratory Rate 15 16 12 Blood Pressure 122/60 122/75 Pulse Oximetry 97 97 12/03/21 12:30 12/03/21 13:00 12/03/21 13:30 Temperature Pulse Rate 108 H 120 H 107 H Respiratory Rate 10 L 18 12 Blood Pressure 125/66 135/79 108/68 Pulse Oximetry 98 90 L 98 12/03/21 14:00 12/03/21 14:01 12/03/21 14:32 Temperature Pulse Rate 109 H 110 H 110 H Respiratory Rate 25 H 20 Blood Pressure 113/81 Pulse Oximetry 99 99 97 12/03/21 14:35 12/03/21 15:04 Temperature 100.0 F H Pulse Rate 103 H Respiratory Rate 15 16 Blood Pressure 127/69 132/68 Pulse Oximetry 98 99 Oxygen Delivery Method Room Air Oxygen Flow Rate 0 Narrative Exam Narrative: General: Elderly thin frail female lying bed and appears comfortable, appears fatigued. HEENT: Normocephalic, atraumatic. External ears without defect. Pupils equal, round, and reactive to light.? Anicteric sclerae, moist conjunctivae, and no lid lag. Mucous membranes dry. Neck: Supple with full range of motion. No lymphadenopathy or thyromegaly. Cardiovascular: Tachycardic with regular rhythm without murmurs, rubs, or gallops. Pulmonary: Clear to auscultation bilaterally without crackles, wheezes, or rhonchi.? Normal respiratory effort with no use of accessory muscles. Abdomen: Soft, nontender, and nondistended. Negative Yeh sign. Extremities: No clubbing, cyanosis, or edema. RA changes in hands, knees, and feet bilaterally.? Skin: Normal temperature, turgor, and texture; no rash, ulcers, or subcutaneous nodules appreciated. Neurological: Cranial nerves grossly intact. Psychiatric: Normal mood and affect. Alert and oriented to person, place, and time. Objective ECG Impression: sinus tachycardia, significant artifact, no obvious acute ischemic changes. S table tracings x3 in the ER which were all reviewed and read by me. Labs Result Diagrams: 12/03/21 09:10 12/03/21 09:10 Labs: Laboratory Results - last 24 hr 12/03/21 12/03/21 12/03/21 09:10 09:10 09:10 WBC 7.9 RBC 4.08 Hgb 13.8 Hct 41.8 MCV 102.5 H MCH 33.8 MCHC 33.0 RDW 15.5 H Plt Count 446 H Neut % (Auto) 72.0 Lymph % (Auto) 15.5 L [place] % (Auto) 11.8 Eos % (Auto) 0.3 L Baso % (Auto) 0.4 Neut # (Auto) 5700 Lymph # (Auto) 1200 [place] # (Auto) 900 Eos # (Auto) 0 Baso # (Auto) 0 Sodium 132 L Potassium 3.9 Chloride 93 L Carbon Dioxide 24 BUN 5 L Creatinine 0.59 Estimated GFR > 60.0 BUN/Creatinine Ratio 8.5 Glucose 79 L Lactate Calcium 9.4 Total Bilirubin 0.7 AST 29 ALT 9 Alkaline Phosphatase 69 Total Creatine Kinase 54 CK-MB (CK-2) TNP CK-MB (CK-2) Rel Index TNP Troponin I 0.015 Total Protein 6.5 Albumin 3.9 Globulin 2.6 Albumin/Globulin Ratio 1.5 Lipase 36 Procalcitonin 0.06 Urine Color Urine Appearance Urine pH Ur Specific [place] Urine Protein Urine Glucose (UA) Urine Ketones Urine Occult Blood Urine Nitrate Urine Bilirubin Urine Urobilinogen Ur Leukocyte Esterase Urine RBC Urine WBC Ur Squamous Epith Cells Urine Bacteria Hyaline Casts Ur Culture Indicated? SARS-CoV-2 (PCR) 12/03/21 12/03/21 12/03/21 09:30 09:50 11:56 WBC RBC Hgb Hct MCV MCH MCHC RDW Plt Count Neut % (Auto) Lymph % (Auto) [place] % (Auto) Eos % (Auto) Baso % (Auto) Neut # (Auto) Lymph # (Auto) [place] # (Auto) Eos # (Auto) Baso # (Auto) Sodium Potassium Chloride Carbon Dioxide BUN Creatinine Estimated GFR BUN/Creatinine Ratio Glucose Lactate 1.4 Calcium Total Bilirubin AST ALT Alkaline Phosphatase Total Creatine Kinase CK-MB (CK-2) CK-MB (CK-2) Rel Index Troponin I Total Protein Albumin Globulin Albumin/Globulin Ratio Lipase Procalcitonin Urine Color Yellow Urine Appearance Sl cloudy Urine pH 5.0 Ur Specific [place] 1.015 Urine Protein Trace H Urine Glucose (UA) Negative Urine Ketones 2+ H Urine Occult Blood 3+ H Urine Nitrate Negative Urine Bilirubin Negative Urine Urobilinogen 0.2 Ur Leukocyte Esterase Trace H Urine RBC 1-5/hpf Urine WBC 5-10/hpf H Ur Squamous Epith Cells 1-5 /hpf Urine Bacteria Moderate (10-30) H Hyaline Casts 1-5/lpf Ur Culture Indicated? Specimen cultured SARS-CoV-2 (PCR) Negative 12/03/21 13:07 WBC RBC Hgb Hct MCV MCH MCHC RDW Plt Count Neut % (Auto) Lymph % (Auto) [place] % (Auto) Eos % (Auto) Baso % (Auto) Neut # (Auto) Lymph # (Auto) [place] # (Auto) Eos # (Auto) Baso # (Auto) Sodium Potassium Chloride Carbon Dioxide BUN Creatinine Estimated GFR BUN/Creatinine Ratio Glucose Lactate Calcium Total Bilirubin AST ALT Alkaline Phosphatase Total Creatine Kinase CK-MB (CK-2) CK-MB (CK-2) Rel Index Troponin I 0.017 Total Protein Albumin Globulin Albumin/Globulin Ratio Lipase Procalcitonin Urine Color Urine Appearance Urine pH Ur Specific [place] Urine Protein Urine Glucose (UA) Urine Ketones Urine Occult Blood Urine Nitrate Urine Bilirubin Urine Urobilinogen Ur Leukocyte Esterase Urine RBC Urine WBC Ur Squamous Epith Cells Urine Bacteria Hyaline Casts Ur Culture Indicated? SARS-CoV-2 (PCR) Assessment & Plan Assessment & Plan narrative: Ms. Mariely Man is a 77-year-old female with a past medical history significant for rheumatoid arthritis on methotrexate and prednisone, gastroesophageal reflux, intermittent nausea who presents with 3 weeks of persistent nausea and vomiting and inability to tolerate much oral intake. 1. Intractable nausea and vomiting - unclear etiology, may be related to acute cystitis. Possibly worsened with dehydration, mild hypoglycemia as well. will treat with IV ceftriaxone. Follow up cultures. Borderline febrile with temperature of 100.0. - continue telemetery monitoring for 24 hours, can discontinue if no acute events. Initial troponins within normal limits and patient without chest pain or obvious ischemic changes on EKG. - symptom relief with zofran, reglan, phenergan PO as needed, depending on which works the best for her. - abdominal CT without obvious source, shows possible enteritis. Will check RUQ US to further evaluate for any biliary cause. - monitor tachycardia, unclear if causal or reactive to probable dehydration. 2. Acute on chronic cystitis - continue ceftriaxone as noted above. Follow up cultures. 3. Rheumatoid arthritis, chronic, stable -patient has been treated with methotrexate and prednisone which are continued.? -patient with chronic pain, continue norco. 4. Gastroesophageal reflux disorder, chronic, stable. - continue pantoprazole. Code: Full as discussed wit h the patient. Surrogate decision maker she states is her . Dispo: Admitted under observation. DVT: Lovenox daily I have utilized all available immediate resources to obtain, update, or review the patient's current medications. Time Spent With Patient Critical Care time: I spent a total of [] minutes of critical care time on this patient's care today; this time is exclusive of procedural time. Quality MIPS - Admit I confirm the patient?s Advance Care Plan is present, Code status is documented, Surrogate decision maker is in patient?s record [If Yes, STOP here]: Yes
--- NOTE | 2021-12-03 16:38 | DI.US.S_ITS ---
PROCEDURE: US ABDOMEN LIMITED INDICATIONS: persistent nausea/ vomiting evaluate biliary system TECHNIQUE: Real-time focused scanning was performed of the abdomen, with image documentation. COMPARISON: [facility], CT, CT ABDOMEN PELVIS W CON, 12/03/2021, 10:09. FINDINGS: The gallbladder is distended without wall thickening or pericholecystic fluid. There is no sludge or gallstone identified. No intrahepatic or extrahepatic biliary ductal dilatation. Pancreas is poorly visualized. Normal sonographic appearance of the liver. IMPRESSION: No sonographic evidence of cholecystitis or biliary tract obstruction. Dictated by: Al Egan M.D. on 12/03/2021 at 17:31 Approved by: Al Egan M.D. on 12/03/2021 at 17:33
[2021-12-03] MEDS: LACTATED RINGERS 1,000 ML 75 ML IV (16:56)
--- NOTE | 2021-12-03 17:53 | PC.NURSE ---
1305: Pt admitted to room 228. Complains of mild nausea, no emesis. Pt oriented to room and unit procedures. Call light within reach, bed in locked and low position. Pt denies needs at present.
[2021-12-04] VITALS (60 sets, daily range): BP systolic 111–121; BP diastolic 59–69; PULSE 92–133; RESP 12–27; TEMP 36.6–37.2; O2SAT 94–99
[2021-12-04] MEDS: LACTATED RINGERS 1,000 ML 75 ML IV (04:15)
[2021-12-04] MEDS: METOCLOPRAMIDE 10 MG/2 ML INJ IV (04:15)
[2021-12-04] MEDS: HYDROCODONE/ACET 10/325 TABLET 1 TAB PO ×3 (04:25→20:37)
--- NOTE | 2021-12-04 04:31 | PC.NURSE ---
Addendum entered by Noris Araujo R.N. 12/04/21 06:48: NIMRAL Gordon notified of patient voiding 50-125 ml amounts throughout the night. Bladder scan for 325 ml and voided 75 ml after scan. Total UOP for this 12 Hours at 295 ml. Patient reports improvement in nausea and pain in hands and feet. Original Note: Patient states that until 0415 had only mild nausea and now nausea is increasing. Patient medicated with Reglan. Medicated for pain with Vicodin 10/325 at 0425 for c/o zo hand and feet pain, It's my arthritis. Patient states that she had good relief with first dose of Vicodin given. Patient continues to void small amounts with the largest void of 125 ml.
[2021-12-04] MEDS: ENOXAPARIN 40 MG/0.4 ML SYRINGE SUBCUT (09:23)
--- NOTE | 2021-12-04 10:30 | CM.DANOTE ---
DCP: Case received, EMR reviewed and met with patient. Introduced self and role. Was able to obtain information regarding patient's baseline activity level at home prior to hospitalization. DCP assessment completed with information currently available. Patient is an 81 year old female who admitted yesterday afternoon to the care of the hospitalist team. PCP: Dr. Sanchez Payer: confirmed: Medicare/[employer] [place] [employer]. Patient came to the hospital via ambulance secondary to having nausea and vomiting that has been occurring for a while. According to notes, patient has been having nausea and vomiting that occurs when she attempts to take in food and fluids. Patient holds diagnosis of intractable nausea and vomiting and acute on chronic cystitis. Patient also has history of rheumatoid arthritis. Met with patient in her room. She was sitting up in bed, alert and oriented. Confirmed that she resides in [place] with her spouse, Rajendra. At her baseline, she uses a FWW. She no longer drives, so her spouse takes her to all of her appointments. P: DCP to continue to follow for any needs. Patient should be able to go home when she is medically stable. Coreen Anguiano RN/Military Logistics Specialist Discharge Planning/Care Management CM Discharge Assessment Start: 12/04/21 10:29 Freq: Status: Active Protocol: Document 12/04/21 10:29 (Rec: 12/04/21 10:30 [id number]) Discharge Planning Assessment Assigned Rn Gastroenterology Coreen Anguiano RN/Military Logistics Specialist Advance Directives? Yes Advance Directives on File No History Provided By Medical Record Prior Living Arrangements House Household Members spouse Type of transporation used prior to Relies on Others admit Independent with ADL's Yes Is patient alert and oriented? Yes Needs Assistance With Home Chores / Shopping DME Already Rented / Owned FWW / Walker Barriers to Discharge No Discharge Plan Home Transportation Arrangement Family Referrals Initiated None needed Whiteboard Updated in Patient Room with Yes name and ext. # of Rn Gastroenterology Review Status In Process Next Review Type Continued Stay Review
[2021-12-04] MEDS: METOCLOPRAMIDE HCL 10 MG TABLET PO (12:42)
[2021-12-04] MEDS: ONDANSETRON 4 MG ODT SL (14:55)
[2021-12-04] MEDS: cefTRIAXone 1,000 MG in SODIUM CHLORIDE 0.9% 100 ML 200 ML IV (14:55)
--- NOTE | 2021-12-04 15:14 | P.PN_ITS ---
Subjective Subjective Date Patient Seen: 12/04/21 Time Patient Seen: 08:30 Interval history: Improved nausea today, but still present and not tolerating much liquids even this morning. No subjective fever or chills, no chest pain or shortness of breath. Exam Vital Signs (past 8 hours): - 12/04/21 10:58 12/04/21 11:00 Temperature 98.6 F Pulse Rate 106 H Respiratory Rate 16 Blood Pressure 121/67 Pulse Oximetry 98 98 Oxygen Delivery Method Room Air Oxygen Flow Rate 0 Narrative Exam Narrative: General: Elderly thin frail female lying bed and appears comfortable, appears fatigued. HEENT: Normocephalic, atraumatic. External ears without defect. Pupils equal, round, and reactive to light.? Anicteric sclerae, moist conjunctivae, and no lid lag. Mucous membranes dry. Neck: Supple with full range of motion. No lymphadenopathy or thyromegaly. Cardiovascular:? Tachycardic with regular rhythm without murmurs, rubs, or gallops. Pulmonary: Clear to auscultation bilaterally without crackles, wheezes, or rhonchi.? Normal respiratory effort with no use of accessory muscles. Abdomen:? Soft, nontender, and nondistended.? Negative Yeh sign. Extremities: No clubbing, cyanosis, or edema. RA changes in hands, knees, and feet bilaterally.? Skin: Normal temperature, turgor, and texture; no rash, ulcers, or subcutaneous nodules appreciated. Neurological: Cranial nerves grossly intact. Psychiatric: Normal mood and affect. Alert and oriented to person, place, and time. Objective Labs Result Diagrams: 12/03/21 09:10 12/03/21 09:10 Labs: Laboratory Results - last 24 hr 12/03/21 15:58 Nasal Screen MRSA (PCR) Negative for mrsa [facility] Medical History (Updated 12/03/21 @ 13:59 by Yoon Bocanegra DO) GERD (gastroesophageal reflux disease) Peripheral edema Rheumatoid arthritis Surgical History History of hand surgery History of total left knee replacement History of total right knee replacement Status post total hip replacement, left Status post wrist surgery Family History Mother No problems noted. Father No problems noted. Social History household members: spouse Smoking Status: Never smoker alcohol intake: current Assessment & Plan Assessment & Plan narrative: Ms. Mariely Man is a 77-year-old female with a past medical history significant for rheumatoid arthritis on methotrexate and prednisone, gastroesophageal reflux, intermittent nausea who presents with 3 weeks of persistent nausea and vomiting and inability to tolerate much oral intake. 1. Intractable nausea and vomiting, improving ?- unclear etiology, may be related to acute cystitis. Possibly worsened with dehydration, mild hypoglycemia as well. will continue treatment with IV ceftriaxone. Follow up cultures. Borderline febrile with temperature of 100.0 but improved today. ?- can discontinue telemetry. ?- symptom relief with zofran, reglan, phenergan PO as needed, depending on which works the best for her. ?- abdominal CT without obvious source, shows possible enteritis. Will check RUQ US to further evaluate for any biliary cause. - transition to oral antinausea medications today, if able to tolerate more PO intake on oral medications then can hopefully discharge home tomorrow. 2. Acute on chronic cystitis ?- continue ceftriaxone as noted above. Follow up cultures. 3. Rheumatoid arthritis, chronic, stable -patient has been treated with methotrexate and prednisone which are continued.? -patient with chronic pain, continue norco. 4. Gastroesophageal reflux disorder, chronic, stable. ?- continue pantoprazole. Code: Full as discussed wit h the patient. Surrogate decision maker she states is her . Dispo: Admitted under observation. Probable discharge home tomorrow if symptoms improved. DVT: Lovenox daily Time Spent With Patient Critical Care time: I spent a total of [] minutes of critical care time on this patient's care today; this time is exclusive of procedural time.
--- NOTE | 2021-12-04 18:51 | PC.NURSE ---
Patient had nausea without emesis mid day, currently improved and tolerating jello and tea. Patient able to tolerate her medications orally today. SLIV per MD order. Patient using bedpan for voiding per her request, she states she does not feel strong enough to ambulate out of bed today. Heart rate on telemetry sinus tachycardia, intermittently up to 130. Confirmed with Dr. Quiroz that is is aware that this continues intermittently. Call light within reach, continue to follow.
[2021-12-04] MEDS: SODIUM CHLORIDE 0.9% FLUSH 10 ML IV (21:16)
[2021-12-05] VITALS (49 sets, daily range): BP systolic 114–135; BP diastolic 60–87; PULSE 82–121; RESP 9–34; TEMP 36.5–37.7; O2SAT 82–100
[2021-12-05] MEDS: ONDANSETRON 4 MG ODT SL ×4 (03:46→20:58)
[2021-12-05] MEDS: HYDROCODONE/ACET 10/325 TABLET 1 TAB PO ×3 (03:47→20:58)
[2021-12-05 04:47] LABS: Add Manual Diff / Slide Review NO; Basophils Absolute Auto 0 /uL (0-100); Basophils Percent Auto 0.6 % (0-2); Eosinophils Absolute Auto 300 /uL (0-450); Eosinophils Percent Auto 3.8 % (2-4); Hemoglobin 11.6 g/dL (12.0-16.0); Lymphocytes Absolute Auto 1500 /uL (1100-4500); Mean Corpuscular Hemoglobin 34.1 PG (26-34); Mean Corpuscular Volume 100.2 fL (80-100); Monocytes Absolute Auto 1000 /uL (0-900); Monocytes Percent Auto 15.1 % (3-14); Neutrophils Absolute Auto 3900 /uL (1500-7000); Neutrophils Percent Auto 58.5 % (50-75); Platelet Count 338 X10^3/uL (150-400); White Blood Cell Count 6.7 X10^3/uL (4.5-11.0)
[2021-12-05 05:00] LABS: Carbon Dioxide 28 mmol/L (22-32); Chloride 98 mmol/L (98-107); Estimated Glomerular Filt Rate > 60.0 mL/min (>60); Glucose 75 mg/dL (80-110); HEMOLYSIS < 15 (0-50); Sodium 131 mmol/L (137-145)
[2021-12-05 05:04] LABS: BUN Creatinine Ratio 4.9 (6-22); Blood Urea Nitrogen < 2 mg/dL (7-17)
[2021-12-05 05:17] LABS: Potassium 2.7 mmol/L (3.4-5.1)
[2021-12-05] MEDS: POTASSIUM CHLORIDE IN WATER 10 MEQ/100 ML PIGGYBACK 100 MEQ IV (05:44)
[2021-12-05] MEDS: PROMETHAZINE 25 MG TABLET 12.5 MG PO ×2 (06:31→14:18)
[2021-12-05] MEDS: PANTOPRAZOLE DR 40 MG TABLET PO (06:31)
[2021-12-05] MEDS: POTASSIUM CHLORIDE IN WATER 10 MEQ/100 ML PIGGYBACK 50 MEQ IV (07:42)
[2021-12-05] MEDS: CEFDINIR 300 MG CAPSULE PO ×2 (08:52→20:58)
[2021-12-05] MEDS: ENOXAPARIN 40 MG/0.4 ML SYRINGE SUBCUT (08:52)
[2021-12-05 08:58] LABS: Magnesium 1.4 mg/dL (1.6-2.3)
[2021-12-05] MEDS: POTASSIUM CHLORIDE IN WATER 10 MEQ/100 ML PIGGYBACK 40 MEQ IV ×2 (09:55→12:27)
[2021-12-05] MEDS: MAGNESIUM SULFATE 2 GM/50 ML PIGGYBACK IV (10:28)
[2021-12-05] MEDS: METOCLOPRAMIDE HCL 10 MG TABLET PO (13:58)
--- NOTE | 2021-12-05 16:03 | PM.PN.1 ---
Subjective Subjective Date Patient Seen: 12/05/21 Time Patient Seen: 16:03 Interval history: Did better yesterday, but again was nauseous overnight. Again improved this afternoon and tolerated some lunch. Exam Vital Signs (past 8 hours): - 12/05/21 11:40 12/05/21 12:00 Temperature 98.9 F Pulse Rate 101 H Respiratory Rate 14 Blood Pressure 114/60 Pulse Oximetry 97 99 Oxygen Delivery Method Room Air Oxygen Flow Rate 0 Narrative Exam Narrative: General: Elderly thin frail female lying bed and appears comfortable, appears fatigued. HEENT: Normocephalic, atraumatic. External ears without defect. Pupils equal, round, and reactive to light.? Anicteric sclerae, moist conjunctivae, and no lid lag. Mucous membranes dry. Neck: Supple with full range of motion. No lymphadenopathy or thyromegaly. Cardiovascular:? Tachycardic with regular rhythm without murmurs, rubs, or gallops. Pulmonary: Clear to auscultation bilaterally without crackles, wheezes, or rhonchi.? Normal respiratory effort with no use of accessory muscles. Abdomen:? Soft, nontender, and nondistended. Extremities: No clubbing, cyanosis, or edema. RA changes in hands, knees, and feet bilaterally.? Skin: Normal temperature, turgor, and texture; no rash, ulcers, or subcutaneous nodules appreciated. Neurological: Cranial nerves grossly intact. Psychiatric: Normal mood and affect. Alert and oriented to person, place, and time. Objective Labs Result Diagrams: 12/05/21 04:09 12/05/21 04:09 Labs: Laboratory Results - last 24 hr 12/05/21 12/05/21 12/05/21 04:09 04:09 04:09 WBC 6.7 RBC 3.40 L Hgb 11.6 L Hct 34.0 L MCV 100.2 H MCH 34.1 H MCHC 34.0 RDW 15.0 H Plt Count 338 Neut % (Auto) 58.5 Lymph % (Auto) 22.0 L [place] % (Auto) 15.1 H Eos % (Auto) 3.8 Baso % (Auto) 0.6 Neut # (Auto) 3900 Lymph # (Auto) 1500 [place] # (Auto) 1000 H Eos # (Auto) 300 Baso # (Auto) 0 Sodium 131 L Potassium 2.7 L* D Chloride 98 Carbon Dioxide 28 BUN < 2 L Creatinine 0.41 L Estimated GFR > 60.0 BUN/Creatinine Ratio 4.9 L Glucose 75 L Calcium 8.0 L Magnesium 1.4 L PFS Medical History (Updated 12/03/21 @ 13:59 by Yoon Bocanegra DO) GERD (gastroesophageal reflux disease) Peripheral edema Rheumatoid arthritis Surgical History History of hand surgery History of total left knee replacement History of total right knee replacement Status post total hip replacement, left Status post wrist surgery Family History Mother No problems noted. Father No problems noted. Social History household members: spouse Smoking Status: Never smoker alcohol intake: current Assessment & Plan Assessment & Plan narrative: Ms. Mariely Man is a 77-year-old female with a past medical history significant for rheumatoid arthritis on methotrexate and prednisone, gastroesophageal reflux, intermittent nausea who presents with 3 weeks of persistent nausea and vomiting and inability to tolerate much oral intake. 1. Intractable nausea and vomiting ?- unclear etiology, may be related to acute cystitis. Possibly worsened with dehydration, mild hypoglycemia as well. changed from IV to oral antibiotics. ?- keep telemetery for tachycardia and electrolyte abnormlalities ?- symptom relief with zofran, reglan, phenergan PO as needed, depending on which works the best for her. Will change zofran to ACHS scheduled as it seems to help. ?- abdominal CT without obvious source, shows possible enteritis. RUQ ultrasound without any pathology. - consider endoscopy only if no improvement in symptoms with medications, no current signs of bleeding and anemia is stable from prior lab values. 2. Acute on chronic cystitis ?- initially on ceftriaxone, now on oral cefdinir. 3. Rheumatoid arthritis, chronic, stable -patient has been treated with methotrexate and prednisone which are continued.? -patient with chronic pain, continue norco. 4. Gastroesophageal reflux disorder, chronic, stable. ?- continue pantoprazole. 5. Hypomagnesemia and hypokalemia, acute - likely due to decreased oral intake. Replete as necessary. Code: Full as discussed wit h the patient. Surrogate decision maker she states is her . Dispo: Admitted under observation. Probable discharge home tomorrow if symptoms improved. DVT: Lovenox daily Time Spent With Patient Critical Care time: I spent a total of [] minutes of critical care time on this patient's care today; this time is exclusive of procedural time.
[2021-12-05] MEDS: POTASSIUM CHLORIDE 20 MEQ/15 ML UDC PO (17:38)
[2021-12-05] MEDS: SODIUM CHLORIDE 0.9% FLUSH 10 ML IV (21:00)
[2021-12-06] VITALS (34 sets, daily range): BP systolic 119–128; BP diastolic 57–87; PULSE 79–104; RESP 12–25; TEMP 36.1–37.3; O2SAT 82–100
[2021-12-06] MEDS: HYDROCODONE/ACET 10/325 TABLET 1 TAB PO ×4 (01:24→21:04)
[2021-12-06 06:01] LABS: Add Manual Diff / Slide Review NO; Basophils Absolute Auto 100 /uL (0-100); Basophils Percent Auto 0.9 % (0-2); Eosinophils Absolute Auto 200 /uL (0-450); Eosinophils Percent Auto 3.8 % (2-4); Hematocrit 32.8 % (36-46); Hemoglobin 11.2 g/dL (12.0-16.0); Lymphocytes Absolute Auto 1700 /uL (1100-4500); Mean Corpuscular HGB Conc 34.1 % (30-36); Mean Corpuscular Hemoglobin 34.1 PG (26-34); Mean Corpuscular Volume 100.1 fL (80-100); Monocytes Absolute Auto 900 /uL (0-900); Monocytes Percent Auto 14.6 % (3-14); Neutrophils Absolute Auto 3200 /uL (1500-7000); Neutrophils Percent Auto 52.7 % (50-75); Platelet Count 322 X10^3/uL (150-400); Red Blood Cell Count 3.28 X10^6/uL (4.0-5.2); Red Cell Distribution Width 15.5 % (11.6-14.8); White Blood Cell Count 6.2 X10^3/uL (4.5-11.0)
[2021-12-06 06:13] LABS: Calcium 7.9 mg/dL (8.4-10.2); Carbon Dioxide 29 mmol/L (22-32); Chloride 100 mmol/L (98-107); Estimated Glomerular Filt Rate > 60.0 mL/min (>60); Glucose 78 mg/dL (80-110); HEMOLYSIS < 15 (0-50); Magnesium 1.8 mg/dL (1.6-2.3); Potassium 3.4 mmol/L (3.4-5.1); Sodium 133 mmol/L (137-145)
[2021-12-06 06:29] LABS: BUN Creatinine Ratio 4.5 (6-22); Blood Urea Nitrogen < 2 mg/dL (7-17)
[2021-12-06 06:37] LABS: Cortisol AM (Before 10AM) 6.87 ug/dL (4.46-22.7)
[2021-12-06] MEDS: PANTOPRAZOLE DR 40 MG TABLET PO (07:44)
[2021-12-06] MEDS: ONDANSETRON 4 MG ODT SL ×4 (07:44→21:04)
[2021-12-06] MEDS: predniSONE 5 MG TABLET 10 MG PO (08:54)
[2021-12-06] MEDS: GABAPENTIN 400 MG CAPSULE 800 MG PO (08:54)
[2021-12-06] MEDS: CEFDINIR 300 MG CAPSULE PO ×2 (08:54→21:04)
[2021-12-06] MEDS: ENOXAPARIN 40 MG/0.4 ML SYRINGE SUBCUT (08:54)
--- NOTE | 2021-12-06 10:37 | PC.NURSE ---
Day shift note Pt A/Ox4, able to eat part of her breakfast without her dentures (she feels wearing her dentures is what is making her nauseous). Out of bed to bedside commode to void, was able to take shower with assistance, requests that she does not need to wear telemetry because the stickers hurt her skin, Dr Quiroz notified and states ok. Able to swallow all medications without difficulty. Bed low and locked, call light within reach, able to make needs known, no further needs at this time.
[2021-12-06] MEDS: POTASSIUM CHLORIDE 20 MEQ TAB 40 MEQ PO (11:24)
--- NOTE | 2021-12-06 14:09 | P.PN_ITS ---
Subjective Subjective Date Patient Seen: 12/06/21 Time Patient Seen: 15:01 Interval history: Did well with breakfast, some nausea with lunch today. Still feels weak but much improved. Denies fever, chills, abdominal pain. Exam Vital Signs (past 8 hours): - 12/06/21 08:00 12/06/21 09:57 12/06/21 12:00 Temperature 98.1 F 99.1 F Pulse Rate 79 97 H Respiratory Rate 17 17 Blood Pressure 128/57 L 120/57 L Pulse Oximetry 100 97 100 Oxygen Delivery Method Room Air Oxygen Flow Rate 0 Narrative Exam Narrative: General: Elderly thin frail female lying bed and appears comfortable, no acute distress. HEENT: Normocephalic, atraumatic. External ears without defect. Pupils equal, round, and reactive to light.? Anicteric sclerae, moist conjunctivae, and no lid lag. Mucous membranes dry. Neck: Supple with full range of motion. No lymphadenopathy or thyromegaly. Cardiovascular:? Tachycardic with regular rhythm without murmurs, rubs, or gallops. Pulmonary: Clear to auscultation bilaterally without crackles, wheezes, or rh onchi.? Normal respiratory effort with no use of accessory muscles. Abdomen:? Soft, nontender, and nondistended. Extremities: No clubbing, cyanosis, or edema. RA changes in hands, knees, and feet bilaterally.? Skin: Normal temperature, turgor, and texture; no rash, ulcers, or subcutaneous nodules appreciated. Neurological: Cranial nerves grossly intact. Psychiatric: Normal mood and affect. Alert and oriented to person, place, and time. Objective Labs Result Diagrams: 12/06/21 05:09 12/06/21 05:09 Labs: Laboratory Results - last 24 hr 12/06/21 12/06/21 12/06/21 05:09 05:09 05:09 WBC 6.2 RBC 3.28 L Hgb 11.2 L Hct 32.8 L MCV 100.1 H MCH 34.1 H MCHC 34.1 RDW 15.5 H Plt Count 322 Neut % (Auto) 52.7 Lymph % (Auto) 28.0 [place] % (Auto) 14.6 H Eos % (Auto) 3.8 Baso % (Auto) 0.9 Neut # (Auto) 3200 Lymph # (Auto) 1700 [place] # (Auto) 900 Eos # (Auto) 200 Baso # (Auto) 100 Sodium 133 L Potassium 3.4 Chloride 100 Carbon Dioxide 29 BUN < 2 L Creatinine 0.44 L Estimated GFR > 60.0 BUN/Creatinine Ratio 4.5 L Glucose 78 L Calcium 7.9 L Magnesium 1.8 Cortisol AM Sample 12/06/21 05:09 WBC RBC Hgb Hct MCV MCH MCHC RDW Plt Count Neut % (Auto) Lymph % (Auto) [place] % (Auto) Eos % (Auto) Baso % (Auto) Neut # (Auto) Lymph # (Auto) [place] # (Auto) Eos # (Auto) Baso # (Auto) Sodium Potassium Chloride Carbon Dioxide BUN Creatinine Estimated GFR BUN/Creatinine Ratio Glucose Calcium Magnesium Cortisol AM Sample 6.87 [facility] Medical History (Updated 12/03/21 @ 13:59 by Yoon Bocanegra DO) GERD (gastroesophageal reflux disease) Peripheral edema Rheumatoid arthritis Surgical History History of hand surgery History of total left knee replacement History of total right knee replacement Status post total hip replacement, left Status post wrist surgery Family History Mother No problems noted. Father No problems noted. Social History household members: spouse Smoking Status: Never smoker alcohol intake: current Assessment & Plan Assessment & Plan narrative: Ms. Mariely Man is a 77-year-old female with a past medical history significant for rheumatoid arthritis on methotrexate and prednisone, gastroesophageal reflux, intermittent nausea who presents with 3 weeks of persistent nausea and vomiting and inability to tolerate much oral intake. 1. Intractable nausea and vomiting ?- unclear etiology, may be related to acute cystitis. Possibly worsened with dehydration, mild hypoglycemia as well. changed from IV to oral antibiotics. ?- keep telemetery for tachycardia and electrolyte abnormlalities ?- symptom relief with zofran, reglan, phenergan PO as needed, depending on which works the best for her. Zofran changed to ACHS with improvement. - cortisol level of 7. Consider outpatient cortisol stim test depending on symptoms and need for zofran. ?- abdominal CT without obvious source, shows possible enteritis. RUQ ultrasound without any pathology. ?- consider endoscopy only if no improvement in symptoms with medications, no current signs of bleeding and anemia is stable from prior lab values. 2. Acute on chronic cystitis ?- initially on ceftriaxone, now on oral cefdinir. Treat for 7 days given immunosuppression. 3. Rheumatoid arthritis, chronic, stable -Patient would like to try and stop methtrexate, she has not taken it in 3 weeks. continue prednisone. -patient with chronic pain, continue norco. 4. Gastroesophageal reflux disorder, chronic, stable. ?- continue pantoprazole. 5. Hypomagnesemia and hypokalemia, acute ?- likely due to decreased oral intake. Replete as necessary. Code: Full as discussed wit h the patient. Surrogate decision maker she states is her . Dispo: Admitted under observation. Probable discharge home tomorrow if symptoms improved. DVT: Lovenox daily Time Spent With Patient Critical Care time: I spent a total of [] minutes of critical care time on this patient's care today; this time is exclusive of procedural time.
--- NOTE | 2021-12-06 17:38 | DIET.CONS ---
Dietary Consultation Note Admission Date: 12/03/2021 15:21 Assessment: 81y F admitted for intractable nausea/vomiting. Pt reports she feels her dentures are problem and causing her N/V. Pt able to tolerate POs without them. Pt BMI low for age but in normal range for her. Ht: 167.64 cm Wt: 55.5 kg BMI: 19.7 Last BM: 12/06/21 (12/06/21 17:21) MNA: 10 Darenll Score: 18 Diet: 12/03/21 Dinner General (Regular) Diet Diet Modifications: Nutrition Percent Meal Consumed 10 12/06/21 13:36 Percent Meal Consumed 15 12/06/21 09:00 Percent Meal Consumed 10 12/05/21 18:30 Labs: RBC 3.28 X10^6/uL (4.0-5.2) L 12/06/21 05:09 Hgb 11.2 g/dL (12.0-16.0) L 12/06/21 05:09 Hct 32.8 % (36-46) L 12/06/21 05:09 Creatinine 0.44 mg/dL (0.52-1.04) L 12/06/21 05:09 Lactate 1.4 mmol/L (0.7-2.1) 12/03/21 09:50 Nutrition Diagnosis: difficulty eating r/t nausea and gagging aeb pt reports sx when dentures in mouth but not sx when they are removed. Interventions: 1. Recc Easy Chew texture at most secondary to not wanting to wear dentures while eating, will change diet order. Monitoring/Evaluations: POs with new diet order Electronically Signed by: Luzma Grady 12/06/21 17:38 Clinical Dietitian [address] [address]
[2021-12-06] MEDS: SODIUM CHLORIDE 0.9% FLUSH 10 ML IV (21:04)
[2021-12-07] MEDS: HYDROCODONE/ACET 10/325 TABLET 1 TAB PO ×2 (04:56→10:00)
[2021-12-07 05:00] VITALS: BP 116/73; PULSE 87; RESP 18; TEMP 36.5; O2SAT 97
[2021-12-07 05:40] LABS: Add Manual Diff / Slide Review NO; Basophils Absolute Auto 0 /uL (0-100); Basophils Percent Auto 0.7 % (0-2); Eosinophils Absolute Auto 0 /uL (0-450); Eosinophils Percent Auto 0.2 % (2-4); Hematocrit 32.8 % (36-46); Lymphocytes Absolute Auto 1300 /uL (1100-4500); Lymphocytes Percent Auto 23.1 % (25-40); Mean Corpuscular HGB Conc 33.6 % (30-36); Mean Corpuscular Hemoglobin 33.7 PG (26-34); Mean Corpuscular Volume 100.2 fL (80-100); Monocytes Absolute Auto 700 /uL (0-900); Neutrophils Absolute Auto 3700 /uL (1500-7000); Platelet Count 325 X10^3/uL (150-400); Red Blood Cell Count 3.27 X10^6/uL (4.0-5.2); White Blood Cell Count 5.8 X10^3/uL (4.5-11.0)
[2021-12-07 05:47] LABS: BUN Creatinine Ratio 6.8 (6-22); Blood Urea Nitrogen 3 mg/dL (7-17); Carbon Dioxide 31 mmol/L (22-32); Chloride 99 mmol/L (98-107); Estimated Glomerular Filt Rate > 60.0 mL/min (>60); Glucose 89 mg/dL (80-110); HEMOLYSIS < 15 (0-50); Potassium 3.9 mmol/L (3.4-5.1); Sodium 131 mmol/L (137-145)
[2021-12-07 05:51] LABS: Magnesium 1.7 mg/dL (1.6-2.3)
[2021-12-07] MEDS: PANTOPRAZOLE DR 40 MG TABLET PO (06:57)
[2021-12-07] MEDS: ONDANSETRON 4 MG ODT SL (07:12)
[2021-12-07] MEDS: MAGNESIUM CHLORIDE 64 MG TABLET 128 MG PO (07:37)
[2021-12-07] MEDS: GABAPENTIN 400 MG CAPSULE 800 MG PO (09:19)
[2021-12-07] MEDS: ENOXAPARIN 40 MG/0.4 ML SYRINGE SUBCUT (09:19)
[2021-12-07] MEDS: CEFDINIR 300 MG CAPSULE PO (09:19)
[2021-12-07] MEDS: predniSONE 5 MG TABLET 10 MG PO (09:19)
[2021-12-07] MEDS: SODIUM CHLORIDE 0.9% FLUSH 10 ML IV (09:20)
--- NOTE | 2021-12-07 09:44 | P.DS_ITS ---
History of Present Illness History of Present Illness Date Patient Seen: 12/07/21 Time Patient Seen: 09:44 Chief complaint: Nausea and vomiting X 3 weeks Narrative: Ms. Mariely Man is a 77-year-old female with a past medical history significant for rheumatoid arthritis on methotrexate and prednisone, gastroesophageal reflux, intermittent nausea who presents with 3 weeks of persistent nausea and vomiting and inability to tolerate much oral intake. Patient states that for the past 3 weeks she has had intermittent nausea with persistent nonbloody and nonbilious vomiting. She denies any diarrhea, abdominal pain, melena or hematochezia, chest pain, palpitations, shortness of breath, fever. She does have some chills. She does not endorse any known sick contacts either. She has not been able to eat or drink much at all. She does endorse being able to take her chronic pain medications, but intermittently vomits when taking minimal liquids. She was evaluated in the emergency room recently and was diagnosed with a urinary tract infection and discharged home on Macrobid. There has not been much improvement in her symptoms since then, she actually thinks that she is slightly worsened. She does intermittently become dizzy, not particularly more notable with standing or positional changes. She denies any back pain, changes in her chronic arthritis. She does note that she had improvement with rectal Phenergan but this made her hemorrhoids worse. Discharge Providers Provider Date of admission: 12/03/21 15:21 Discharge Date: 12/07/21 Primary care physician: Alen Garsia MD Consults: 12/03/21 15:45 Consult to Dietitian, Adult Routine Comment: Reason For Exam: persistent nausea causing loss of appetite Discharge provider: Anil Quiroz DO Summary Hospital Course Discharge Diagnosis: Please see hospital course by problem list noted below Hospital Course: Ms. Mariely Man is a 77-year-old female with a past medical history significant for rheumatoid arthritis on methotrexate and prednisone, gastroesophageal reflux, intermittent nausea who presents with 3 weeks of persistent nausea and vomiting and inability to tolerate much oral intake. She improved slowly with fluids, treatment for a UTI and antinauseal medications. 1. Intractable nausea and vomiting ?- unclear etiology, may be related to acute cystitis. Possibly worsened with dehydration, mild hypoglycemia as well. - had intermittent tachycardia with a rate in the 130s, not atrial fibrillation, which was not related to her symptoms. ?- Zofran changed to ACHS with improvement in symptoms. Continued as an outpatient with additional reglan for breakthrough. ?- cortisol level of 7, consider outpatient cortisol stimulation testing as an outpatient. ?- abdominal CT without obvious source, shows possible enteritis. RUQ ultrasound without any pathology. ?- consider endoscopy only if no improvement in symptoms with medications as an outpatient, no current signs of bleeding and anemia is stable from prior lab values. 2. Acute on chronic cystitis ?- initially on ceftriaxone, now on oral cefdinir. Treat for 7 days total given immunosuppression. 3. Rheumatoid arthritis, chronic, stable -Patient would like to try and stop methtrexate, she has not taken it in 3 weeks.? continue prednisone. -patient with chronic pain, continue norco. 4. Gastroesophageal reflux disorder, chronic, stable. ?- continue pantoprazole. 5. Hypomagnesemia and hypokalemia, acute ?- likely due to decreased oral intake. Repleted with improvement in values. 6. Low AM cortisol. - recommend outpatient cortisol stimulation testing should symptoms continue. Time Spent with Patient Time spent: Greater than 30 minutes Exam Vital Signs (past 8 hours): - 12/07/21 05:00 Temperature 97.7 F Pulse Rate 87 Respiratory Rate 18 Blood Pressure 116/73 Pulse Oximetry 97 Oxygen Delivery Method Room Air Oxygen Flow Rate 0 Narrative Exam Narrative: General: Elderly thin frail female lying bed and appears comfortable, no acute distress. HEENT: Normocephalic, atraumatic. External ears without defect. Pupils equal, round, and reactive to light.? Anicteric sclerae, moist conjunctivae, and no lid lag. Mucous membranes moist. Neck: Supple with full range of motion. No lymphadenopathy or thyromegaly. Cardiovascular:? Tachycardic with regular rhythm without murmurs, rubs, or gallops. Pulmonary: Clear to auscultation bilaterally without crackles, wheezes, or rhonchi.? Normal respiratory effort with no use of accessory muscles. Abdomen:? Soft, nontender, and nondistended. Extremities: No clubbing, cyanosis, or edema. RA changes in hands, knees, and feet bilaterally.? Skin: Normal temperature, turgor, and texture; no rash, ulcers, or subcutaneous nodules appreciated. Neurological: Cranial nerves grossly intact. Psychiatric: Normal mood and affect. Alert and oriented to person, place, and time. Objective Labs Result Diagrams: 12/07/21 04:37 12/07/21 04:37 Labs: Laboratory Results - last 24 hr 12/07/21 12/07/21 12/07/21 04:37 04:37 04:37 WBC 5.8 RBC 3.27 L Hgb 11.0 L Hct 32.8 L MCV 100.2 H MCH 33.7 MCHC 33.6 RDW 15.0 H Plt Count 325 Neut % (Auto) 64.0 Lymph % (Auto) 23.1 L [place] % (Auto) 12.0 Eos % (Auto) 0.2 L Baso % (Auto) 0.7 Neut # (Auto) 3700 Lymph # (Auto) 1300 [place] # (Auto) 700 Eos # (Auto) 0 Baso # (Auto) 0 Sodium 131 L Potassium 3.9 Chloride 99 Carbon Dioxide 31 BUN 3 L Creatinine 0.44 L Estimated GFR > 60.0 BUN/Creatinine Ratio 6.8 Glucose 89 Calcium 8.0 L Magnesium 1.7 PFSH Medical History (Updated 12/03/21 @ 13:59 by Yoon Bocanegra DO) GERD (gastroesophageal reflux disease) Peripheral edema Rheumatoid arthritis Surgical History History of hand surgery History of total left knee replacement History of total right knee replacement Status post total hip replacement, left Status post wrist surgery Family History Mother No problems noted. Father No problems noted. Social History household members: spouse Smoking Status: Never smoker alcohol intake: current Discharge Plan Discharge Plan Patient Disposition: Home Provider Discharge Comment: You were admitted to the hospital with nausea and vomiting. Improved with medications. Will discharge with medications, please take zofran before every meal 3 times a day and at night for a few days, then would use only as needed to make sure your nausea is improved. Reglan also added for breakthrough symptoms. I recommend your PCP order a cortisol stimulation test because your AM cortisol was low which may be contributing to your symptoms as well. Discharge orders & Medications Prescriptions: New ondansetron 4 mg tablet,disintegrating 4 mg PO ACHS 30 Days Qty: 120 0RF metoclopramide HCl 10 mg tablet 10 mg PO Q6H PRN (Reason: nausea and vomiting) 30 Days Qty: 30 0RF Continued meclizine 25 mg tablet 25 mg PO DAILY PRN (Reason: dizziness) Qty: 20 0RF ondansetron 4 mg tablet,disintegrating 4 mg PO Q6H PRN (Reason: nausea and vomiting) Qty: 10 0RF omeprazole 40 mg capsule,delayed release(DR/EC) 40 mg PO DAILY 0RF alendronate 70 mg tablet 70 mg PO QWEEK Qty: 4 0RF folic acid 800 mcg Tablet 0.8 mg PO DAILY 0RF zoledronic [id number] [Reclast] 5 mg/100 mL Piggyback 5 mg IV PER PKG DIR 0RF Rx Instructions: as directed intravenously once a year in February cholecalciferol (vitamin D3) [Vitamin D3] 2,000 unit Tablet 2,000 unit PO DAILY 0RF oxycodone 5 mg Tablet 2.5 mg PO Q4HR PRN (Reason: Pain, Moderate (4-6)) Qty: 10 0RF hydrocodone-acetaminophen 10-325 mg Tablet 1 tab PO Q4H PRN (Reason: Back Pain) Qty: 60 0RF gabapentin 800 mg tablet 800 mg PO DAILY 0RF prednisone 10 mg tablet 10 mg PO DAILY 0RF Label Comments: TAKE ONE TABLET BY MOUTH ONE TIME DAILY Discontinued methotrexate sodium 25 mg/mL solution 0.8 ml IM QWEEK 0RF Label Comments: saturdays spironolactone 50 mg tablet 100 mg PO QAM 0RF Follow up/Referrals: Alen Garsia MD [Primary Care Provider] - Diet/Activity/Treatments Diet: Diet as Tolerated Activity: As tolerated Discharge Data Primary Care Provider: Alen Garsia
--- NOTE | 2021-12-07 12:02 | CM.DPC ---
DCP Discharge Home Per MD, pt is medically stable to d/c home this morning with spouse assist and no identified barriers to discharge. Per RN, no concerns at this time and pt very agreeable with d/c to home today and no needs. Train Attendant worked with pt and provided some recommendations for healing and higher BMI. Plan: Patient to d/c back to home via spouse POV today and no further SW needs at this time. MONIQUE Nichols
== END 2021-12-07 11:25 | disposition home or self-care (01) | DRG 392 ==
LOC: ED 13:58 → AC 15:21 → ICU 15:25
PROVIDERS: Admitting Provider Internal Medicine; Emergency Provider Emergency Medicine; PCP Internal Medicine; Referring Provider Emergency Medicine; Visit Provider Internal Medicine
DX: R11.2 Nausea with vomiting, unspecified (principal); N30.00 Acute cystitis without hematuria; E86.0 Dehydration; M06.9 Rheumatoid arthritis, unspecified; E83.42 Hypomagnesemia; E87.6 Hypokalemia; K21.9 Gastro-esophageal reflux disease without esophagitis; R00.0 Tachycardia, unspecified; Z20.822 Contact with and (suspected) exposure to COVID-19
CPT/HCPCS: 36415; 71045; 74177; 76705; 80048; 80053; 81001; 82533; 82550; 82962; 83605; 83690; 83735; 84145; 84484; 85025; 87040; 87077; 87086; 87186; 87635; 87797; 93005; 94760; 94762; 96361; 96365; 96375; 99285; C9803; J0696; J1200; J1650; J2765; J3475

== ENCOUNTER 2021-12-10 10:49 | Emergency (ER) | payer MEDICARE, OTHER, SELFPAY ==
[2021-12-03 15:33] VITALS: BMI 17.7
[2021-12-10 10:54] VITALS: BP 124/68; PULSE 95; RESP 16; TEMP 37; O2SAT 98; BMI 19.3
--- NOTE | 2021-12-10 11:02 | DI.RAD.S_ITS ---
PROCEDURE: XR CHEST 1V INDICATIONS: Eval for pneumonia TECHNIQUE: One view of the chest was acquired. COMPARISON: , CT, CT CHEST ABD PEL W CON, 09/03/2020, 20:44. , CR, XR CHEST 1V, 09/14/2019, 17:43. , CT, CT ABDOMEN PELVIS W CON, 12/03/2021, 10:09. , CR, XR CHEST 1V, 12/03/2021, 9:23. FINDINGS: Surgical changes and devices: None. Lungs and pleura: An incomplete inspiratory result is noted, causing a crowded appearance to the lung markings. No focal infiltrates are seen. No pneumothorax can be seen. No large pleural effusion. Stable elevation the right hemidiaphragm is seen. Mediastinum: The cardiac contours are within normal limits. The aorta demonstrates calcification and tortuosity. Bones and chest wall: There is a remote fracture of the left humeral head and neck. Age-appropriate bony degenerative changes are seen. Mild dextroconvex scoliotic curvature is seen. Remote left lateral rib fractures are seen. No suspicious bony lesions. Overlying soft tissues appear unremarkable. IMPRESSION: No focal infiltrates are seen. Remote left humeral head and neck fracture. Stable elevation of the right hemidiaphragm. If there is strong clinical concern for paralysis of this hemidiaphragm, please consider a dedicated fluoroscopic sniff test for further evaluation. Remote left lateral rib fractures. Dictated by: Timothy Dimas M.D. on 12/10/2021 at 10:17 Approved by: Timothy Dimas M.D. on 12/10/2021 at 10:20
[2021-12-10] MEDS: ONDANSETRON 4 MG/2 ML INJ IV (11:14)
[2021-12-10] MEDS: SODIUM CHLORIDE 0.9% 1,000 ML 125 ML IV (11:15)
[2021-12-10 11:16] LABS: Add Manual Diff / Slide Review NO; Basophils Absolute Auto 100 /uL (0-100); Basophils Percent Auto 1.7 % (0-2); Eosinophils Absolute Auto 100 /uL (0-450); Eosinophils Percent Auto 1.3 % (2-4); Hematocrit 33.1 % (36-46); Lymphocytes Absolute Auto 1600 /uL (1100-4500); Lymphocytes Percent Auto 24.9 % (25-40); Mean Corpuscular HGB Conc 33.3 % (30-36); Mean Corpuscular Hemoglobin 33.6 PG (26-34); Mean Corpuscular Volume 100.9 fL (80-100); Monocytes Absolute Auto 700 /uL (0-900); Monocytes Percent Auto 10.8 % (3-14); Neutrophils Absolute Auto 3900 /uL (1500-7000); Neutrophils Percent Auto 61.3 % (50-75); Platelet Count 359 X10^3/uL (150-400); Red Blood Cell Count 3.28 X10^6/uL (4.0-5.2); Red Cell Distribution Width 15.3 % (11.6-14.8); White Blood Cell Count 6.4 X10^3/uL (4.5-11.0)
[2021-12-10 11:23] LABS: Prothrombin Time 11.1 SECONDS (10.1-12.7)
--- NOTE | 2021-12-10 11:24 | ED_ITS ---
HPI - Nausea/Vomiting/Diarrhea General Chief complaint: Nausea/Vomiting/Diarrhea Stated complaint: Nausea/Weakness Time Seen by Provider: 12/10/21 10:57 Source: patient and EMS Mode of arrival: EMS Limitations: no limitations History of Present Illness HPI Narrative: Patient is an 81-year-old female who arrives by EMS for evaluation of nausea and weakness. She does recently was admitted to the hospital and subsequently discharged just a couple days ago. She was admitted for a cystitis and weakness. Was according to the note discharged with [employer]. Patient also states she was discharged with a nausea medication. Which she describes as consistent with ODT Zofran. She states she was not discharged with any antibiotics. He states that yesterday she started having nausea. She did vomit 1 time yesterday. She was able to take her pain medication last night but none of her other medications because of the nausea. Today she has not vomited but continues to have quite a bit of nausea. Is having urinary frequency but no burning or itching. No abdominal pain. No fevers. No chest pain. No shortne ss of breath. She did take the Zofran at home without issue. Related Data Home Medications Medication Instructions Recorded Confirmed omeprazole 40 mg capsule,delayed 40 mg PO DAILY 09/29/18 12/04/21 release cholecalciferol (vitamin D3) 50 2,000 unit PO DAILY 10/28/19 12/04/21 mcg (2,000 unit) tablet (Vitamin D3) folic acid 800 mcg tablet 0.8 mg PO DAILY 10/28/19 12/04/21 zoledronic acid 5 mg/100 mL in 5 mg IV PER PKG DIR 10/28/19 12/04/21 mannitol 5 %-water intravenous piggybck (Reclast) gabapentin 800 mg tablet 800 mg PO DAILY 12/04/21 12/04/21 prednisone 10 mg tablet 10 mg PO DAILY 12/04/21 12/04/21 Previous Rx's Medication Instructions Recorded alendronate 70 mg tablet 70 mg PO QWEEK #4 tab 10/04/18 hydrocodone 10 mg-acetaminophen 1 tab PO Q4H PRN #60 tab 11/01/19 325 mg tablet oxycodone 5 mg tablet 2.5 mg PO Q4HR PRN #10 tab 11/01/19 meclizine 25 mg tablet 25 mg PO DAILY PRN #20 tab 07/27/20 ondansetron 4 mg disintegrating 4 mg PO Q6H PRN #10 tab 11/17/21 tablet metoclopramide HCl 10 mg tablet 10 mg PO Q6H PRN 30 Days #30 tab 12/07/21 ondansetron 4 mg disintegrating 4 mg PO ACHS 30 Days #120 tab 12/07/21 tablet prochlorperazine maleate 5 mg 5 mg PO BID PRN #10 tab 12/10/21 tablet (Compazine) Allergies Allergy/AdvReac Type Severity Reaction Status Date / Time codeine Allergy Verified 12/10/21 10:56 morphine AdvReac Severe Vomiting Verified 12/10/21 10:56 meperidine [MEPERIDINE] AdvReac Unknown VOMITING Verified 12/10/21 10:56 oxycodone [OXYCODONE] AdvReac Unknown NAUSEA Verified 12/10/21 10:56 Review of Systems Review of Systems ROS Unobtainable: All systems reviewed & are unremarkable except as noted in HPI and below Patient History Medical History (Updated 12/10/21 @ 14:22 by Nestor Brunner DO) GERD (gastroesophageal reflux disease) Peripheral edema Rheumatoid arthritis Surgical History History of hand surgery History of total left knee replacement History of total right knee replacement Status post total hip replacement, left Status post wrist surgery Family History Mother No problems noted. Father No problems noted. Social History household members: spouse Smoking Status: Never smoker alcohol intake: current Smoking Status: Never smoker alcohol intake frequency: holidays/special occasions only Substance Use Type: does not use Exam Initial Vital Signs Initial Vital Signs: Vital Signs Temperature 98.6 F 12/10/21 10:54 Pulse Rate 95 H 12/10/21 10:54 Respiratory Rate 16 12/10/21 10:54 Blood Pressure 124/68 12/10/21 10:54 Pulse Oximetry 98 12/10/21 10:54 HENMT Head: normal to inspection and normocephalic Resp Effort & Inspection: normal respiratory effort Auscultation: clear to auscultation bilaterally Cardio Rate: regular rate Rhythm: regular rhythm GI Inspection: normal to inspection Palpation: soft, No guarding and No tender Skin General: no rashes or lesions noted Lesions: no lesions Neuro General: patient alert, patient awake, patient oriented x3 and moves all extremities Extrem General: normal to inspection and capillary refill normal Psych Appearance: grossly normal and well kempt Course Orders Ordered: ED Orders 12/10/21 11:02 XR chest 1V Stat EKG-12 Lead Stat 12/10/21 11:09 Complete Blood Count AUTO DIFF Stat Comprehensive Metabolic Panel Stat Lactate (Lactic Acid) Stat Lipase Stat Magnesium Stat Partial Thromboplastin Time Stat Procalcitonin Stat Prothrombin Time INR Stat Troponin & CK Cardiac Panel Stat 12/10/21 11:55 Blood Culture Stat 12/10/21 13:20 Urinalysis and Microscopic Stat Urine Culture Stat Discontinued Medications Sodium Chloride (Normal Saline 0.9%) 1,000 mls @ 125 mls/hr IV CONT ALDO Last Admin: 12/10/21 11:15 Dose: 125 mls/hr Documented by: CARLENE Ondansetron HCl (Ondansetron 4 Mg/2 Ml Inj) 4 mg IV NOW ONE Stop: 12/10/21 11:09 Last Admin: 12/10/21 11:14 Dose: 4 mg Documented by: CARLENE Prochlorperazine (Prochlorperazine 10 Mg/2 Ml Vial) 5 mg IV NOW ONE Stop: 12/10/21 11:33 Last Admin: 12/10/21 13:28 Dose: 5 mg Documented by: CESARIO Vital Signs Vital signs: Vital Signs - 8 hr 12/10/21 10:54 12/10/21 13:36 Temperature 98.6 F Pulse Rate 95 H 96 H Respiratory Rate 16 Blood Pressure 124/68 Pulse Oximetry 98 95 MDM - Nausea/Vomiting/Diarrhea Lab Data Result diagrams: 12/10/21 11:09 12/10/21 11:09 Labs: Lab Results 12/10/21 12/10/21 12/10/21 Range/Units 11:09 11:09 11:09 WBC 6.4 (4.5-11.0) X10^3/uL RBC 3.28 L (4.0-5.2) X10^6/uL Hgb 11.0 L (12.0-16.0) g/dL Hct 33.1 L (36-46) % MCV 100.9 H (80-100) fL MCH 33.6 (26-34) PG MCHC 33.3 (30-36) % RDW 15.3 H (11.6-14.8) % Plt Count 359 (150-400) X10^3/uL Neut % (Auto) 61.3 (50-75) % Lymph % (Auto) 24.9 L (25-40) % [place] % (Auto) 10.8 (3-14) % Eos % (Auto) 1.3 L (2-4) % Baso % (Auto) 1.7 (0-2) % Neut # (Auto) 3900 (6156-7626) /uL Lymph # (Auto) 1600 (8501-9095) /uL [place] # (Auto) 700 (0-900) /uL Eos # (Auto) 100 (0-450) /uL Baso # (Auto) 100 (0-100) /uL PT 11.1 (10.1-12.7) SECONDS INR 1.0 (0.9-1.3) APTT 36 D (26.4-36.2) SECONDS Sodium 135 L (137-145) mmol/L Potassium 3.6 (3.4-5.1) mmol/L Chloride 100 (98-107) mmol/L Carbon Dioxide 33 H (22-32) mmol/L BUN 4 L (7-17) mg/dL Creatinine 0.54 (0.52-1.04) mg/dL Estimated GFR > 60.0 (>60) mL/min BUN/Creatinine Ratio 7.4 (6-22) Glucose 98 (80-110) mg/dL Lactate (0.7-2.1) mmol/L Calcium 8.8 (8.4-10.2) mg/dL Magnesium 1.6 (1.6-2.3) mg/dL Total Bilirubin 0.4 (0.2-1.3) mg/dL AST 38 H (14-36) IU/L ALT 14 (<35) IU/L Alkaline Phosphatase 56 (38-126) U/L Total Creatine Kinase 31 (30-135) U/L CK-MB (CK-2) TNP CK-MB (CK-2) Rel Index TNP Troponin I < 0.012 (0.01-0.034) ng/mL Total Protein 5.2 L (6.3-8.2) g/dL Albumin 3.1 L (3.5-5.0) g/dL Globulin 2.1 (1.7-4.1) g/dL Albumin/Globulin Ratio 1.5 (1.0-2.8) Lipase 37 (23-300) U/L Procalcitonin 0.05 (<0.5) ng/mL Urine Color Urine Appearance Urine pH (4.5-8.0) Ur Specific [place] (1.000-1.035) Urine Protein (Negative) Urine Glucose (UA) (Negative) g/dL Urine Ketones (NEGATIVE) Urine Occult Blood (Negative) Urine Nitrate (Negative) Urine Bilirubin (NEGATIVE) Urine Urobilinogen (0.2) E.U./dL Ur Leukocyte Esterase (NEGATIVE) Urine RBC (0-5/HPF) Urine WBC (0-5/HPF) Amorphous Sediment Urine Bacteria (None) Urine Mucus (Negative) Ur Culture Indicated? 12/10/21 12/10/21 Range/Units 11:09 13:20 WBC (4.5-11.0) X10^3/uL RBC (4.0-5.2) X10^6/uL Hgb (12.0-16.0) g/dL Hct (36-46) % MCV (80-100) fL MCH (26-34) PG MCHC (30-36) % RDW (11.6-14.8) % Plt Count (150-400) X10^3/uL Neut % (Auto) (50-75) % Lymph % (Auto) (25-40) % [place] % (Auto) (3-14) % Eos % (Auto) (2-4) % Baso % (Auto) (0-2) % Neut # (Auto) (7841-3594) /uL Lymph # (Auto) (7656-9763) /uL [place] # (Auto) (0-900) /uL Eos # (Auto) (0-450) /uL Baso # (Auto) (0-100) /uL PT (10.1-12.7) SECONDS INR (0.9-1.3) APTT (26.4-36.2) SECONDS Sodium (137-145) mmol/L Potassium (3.4-5.1) mmol/L Chloride (98-107) mmol/L Carbon Dioxide (22-32) mmol/L BUN (7-17) mg/dL Creatinine (0.52-1.04) mg/dL Estimated GFR (>60) mL/min BUN/Creatinine Ratio (6-22) Glucose (80-110) mg/dL Lactate 1.3 (0.7-2.1) mmol/L Calcium (8.4-10.2) mg/dL Magnesium (1.6-2.3) mg/dL Total Bilirubin (0.2-1.3) mg/dL AST (14-36) IU/L ALT (<35) IU/L Alkaline Phosphatase (38-126) U/L Total Creatine Kinase (30-135) U/L CK-MB (CK-2) CK-MB (CK-2) Rel Index Troponin I (0.01-0.034) ng/mL Total Protein (6.3-8.2) g/dL Albumin (3.5-5.0) g/dL Globulin (1.7-4.1) g/dL Albumin/Globulin Ratio (1.0-2.8) Lipase (23-300) U/L Procalcitonin (<0.5) ng/mL Urine Color Yellow Urine Appearance Clear Urine pH 8.0 (4.5-8.0) Ur Specific [place] 1.015 (1.000-1.035) Urine Protein Negative (Negative) Urine Glucose (UA) Negative (Negative) g/dL Urine Ketones Negative (NEGATIVE) Urine Occult Blood Trace-intact (Negative) Urine Nitrate Negative (Negative) Urine Bilirubin Negative (NEGATIVE) Urine Urobilinogen 0.2 (0.2) E.U./dL Ur Leukocyte Esterase Negative (NEGATIVE) Urine RBC 0-1/hpf (0-5/HPF) Urine WBC None seen (0-5/HPF) Amorphous Sediment 1+ Urine Bacteria None seen (None) Urine Mucus 1+ H (Negative) Ur Culture Indicated? Cult not indicated Imaging Data Chest x-ray: Radiologist's Impression: [address] [id number] XRay Report Signed Patient: Mariely Man MR#: [id number] : 1940 Acct:[id number] Age/Sex: 81 / F Date of Service: 12/10/21 Loc: ED Accession Number: [id number] ?? Procedure: XR chest 1V Ordering Provider: Nestor Brunner D.O. PROCEDURE:? XR CHEST 1V ? INDICATIONS:? Eval for pneumonia ? TECHNIQUE:? One view of the chest was acquired.? ? COMPARISON:? [facility], CT, CT CHEST ABD PEL W CON, 09/03/2020, 20:44.? [facility], CR, XR CHEST 1V, 09/14/2019, 17:43.? [facility], CT, CT ABDOMEN PELVIS W CON, 12/03/2021, 10:09.? [facility], CR, XR CHEST 1V, 12/03/2021, 9:23. ? FINDINGS:? ? Surgical changes and devices:? None.? ? Lungs and pleura:? An incomplete inspiratory result is noted, causing a crowded appearance to the lung markings.? No focal infiltrates are seen.? No pneumothorax can be seen.? No large pleural effusion.? Stable elevation the right hemidiaphragm is seen. ? Mediastinum:? The cardiac contours are within normal limits. The aorta demonstrates calcification and tortuosity. ? Bones and chest wall:? There is a remote fracture of the left humeral head and neck.? Age-appropriate bony degenerative changes are seen.? Mild dextroconvex scoliotic curvature is seen. ? Remote left lateral rib fractures are seen. ? No suspicious bony lesions.? Overlying soft tissues appear unremarkable.? ? IMPRESSION:? No focal infiltrates are seen. ? Remote left humeral head and neck fracture. ? Stable elevation of the right hemidiaphragm. If there is strong clinical concern for paralysis of this hemidiaphragm, please consider a dedicated fluoroscopic sniff test for further evaluation.? ? Remote left lateral rib fractures.? ? Dictated by: Timothy Dimas M.D. on 12/10/2021 at 10:17 ? ? Approved by: Timothy Dimas M.D. on 12/10/2021 at 10:20 ECG Data Attestation: I personally reviewed and interpreted this ECG as follows: Interpretation: Sinus rhythm Ventricular rate 94 Normal axis Normal QRS Normal QTC No ST T wave changes MDM Narrative Medical decision making narrative: Patient is nontoxic appearing. Is afebrile. Vital signs unremarkable. Labs unremarkable. Urinalysis does not show any signs of infection despite the fact that the patient states she was not discharged with any antibiotics. She was able to tolerate her pain medication last evening without any vomiting. She has not been vomiting here in the ER. Which she describes as nausea. It appears that the Compazine seem to help her symptoms more. She was able to tolerate oral intake here in the ER. No indication for admission to the hospital today. I did discuss this with her. Plan will be is to sent her home with a prescription for the Compazine is a seems to help her better than the Zofran. She will continue all of her medications as directed. Contact her primary doctor. She was given return precautions. She expressed understanding and agreement Discharge Plan Departure Patient Disposition: Home Clinical Impression: Nausea Instructions: DI for Nausea -- Adult Activity Restrictions/Additional Instructions: I do recommend that you continue to take all of your medications as directed. Sure to increase your fluid intake and also recommend eating a bland diet for the next couple days. Contact your primary doctor for follow-up. Return to the emergency department for any new or worsening symptoms. Prescriptions: New prochlorperazine maleate [Compazine] 5 mg tablet 5 mg PO BID PRN (Reason: nausea and vomiting) Qty: 10 0RF No Action meclizine 25 mg tablet 25 mg PO DAILY PRN (Reason: dizziness) Qty: 20 0RF ondansetron 4 mg tablet,disintegrating 4 mg PO Q6H PRN (Reason: nausea and vomiting) Qty: 10 0RF omeprazole 40 mg capsule,delayed release(DR/EC) 40 mg PO DAILY 0RF alendronate 70 mg tablet 70 mg PO QWEEK Qty: 4 0RF folic acid 800 mcg Tablet 0.8 mg PO DAILY 0RF zoledronic [id number] [Reclast] 5 mg/100 mL Piggyback 5 mg IV PER PKG DIR 0RF Rx Instructions: as directed intravenously once a year in February cholecalciferol (vitamin D3) [Vitamin D3] 2,000 unit Tablet 2,000 unit PO DAILY 0RF oxycodone 5 mg Tablet 2.5 mg PO Q4HR PRN (Reason: Pain, Moderate (4-6)) Qty: 10 0RF hydrocodone-acetaminophen 10-325 mg Tablet 1 tab PO Q4H PRN (Reason: Back Pain) Qty: 60 0RF gabapentin 800 mg tablet 800 mg PO DAILY 0RF prednisone 10 mg tablet 10 mg PO DAILY 0RF Label Comments: TAKE ONE TABLET BY MOUTH ONE TIME DAILY ondansetron 4 mg tablet,disintegrating 4 mg PO ACHS 30 Days Qty: 120 0RF metoclopramide HCl 10 mg tablet 10 mg PO Q6H PRN (Reason: nausea and vomiting) 30 Days Qty: 30 0RF Referrals: Alen Garsia MD [Primary Care Provider] -
[2021-12-10 11:26] LABS: PTT Partial Thromboplastin Tim 36 SECONDS (26.4-36.2)
[2021-12-10 11:27] LABS: Lactate (Lactic Acid) 1.3 mmol/L (0.7-2.1)
[2021-12-10 11:28] LABS: Alanine Aminotransferase 14 IU/L (<35); Albumin 3.1 g/dL (3.5-5.0); Albumin Globulin Ratio 1.5 (1.0-2.8); Alkaline Phosphatase 56 U/L (38-126); Aspartate Aminotransferase 38 IU/L (14-36); BUN Creatinine Ratio 7.4 (6-22); Bilirubin Total 0.4 mg/dL (0.2-1.3); Blood Urea Nitrogen 4 mg/dL (7-17); Calcium 8.8 mg/dL (8.4-10.2); Carbon Dioxide 33 mmol/L (22-32); Chloride 100 mmol/L (98-107); Creatine Kinase 31 U/L (30-135); Estimated Glomerular Filt Rate > 60.0 mL/min (>60); Globulin 2.1 g/dL (1.7-4.1); Glucose 98 mg/dL (80-110); HEMOLYSIS < 15 (0-50); Lipase 37 U/L (23-300); Magnesium 1.6 mg/dL (1.6-2.3); Potassium 3.6 mmol/L (3.4-5.1); Sodium 135 mmol/L (137-145); Total Protein 5.2 g/dL (6.3-8.2)
--- NOTE | 2021-12-10 11:31 | PC.NURSE ---
Discharged friday for UTI, not on abx. Patient has been trying ODT zofran at home with no success. Patient states she became lethargic and nauseated yesterday.
[2021-12-10 11:39] LABS: Troponin I < 0.012 ng/mL (0.01-0.034)
[2021-12-10 11:44] LABS: Procalcitonin 0.05 ng/mL (<0.5)
[2021-12-10] MEDS: PROCHLORPERAZINE 10 MG/2 ML VIAL 5 MG IV (13:28)
[2021-12-10 13:33] LABS: Appearance Urine UA CLEAR; Bilirubin Urine UA NEGATIVE (NEGATIVE); Color Urine UA YELLOW; Glucose Urine UA NEGATIVE (Negative); Ketones Urine UA NEGATIVE (NEGATIVE); Leukocyte Esterase Urine UA NEGATIVE (NEGATIVE); Nitrite Urine UA NEGATIVE (Negative); Occult Blood Urine UA TRACE-INTACT (Negative); Protein Urine UA NEGATIVE (Negative); Specific Gravity Urine UA 1.015 (1.000-1.035); Urobilinogen Urine UA 0.2 E.U./dL (0.2)
[2021-12-10 13:36] VITALS: PULSE 96; O2SAT 95
[2021-12-10 13:48] LABS: RBC Urine 0-1/HPF (0-5/HPF); WBC Urine None Seen (0-5/HPF)
[2021-12-10 13:49] LABS: Amorphous Sediment Urine 1+; Bacteria Urine None Seen; Culture Indicated Urine Cult Not Indicated; Mucus Urine 1+ (Negative)
== END 2021-12-10 14:30 | disposition home or self-care (01) ==
PROVIDERS: Emergency Provider Emergency Medicine; PCP Internal Medicine
DX: R11.0 Nausea (principal)
CPT/HCPCS: 36415; 71045; 80053; 81001; 82550; 83605; 83690; 83735; 84145; 84484; 85025; 85610; 85730; 87040; 87086; 93005; 96374; 96375; 99284; J0780; J2405

== ENCOUNTER 2021-12-24 07:46 | Inpatient (IN) | payer MEDICARE, OTHER, SELFPAY ==
[2021-12-03 15:33] VITALS: BMI 17.7
[2021-12-24] VITALS (26 sets, daily range): BP systolic 110–159; BP diastolic 56–84; PULSE 94–136; RESP 12–23; TEMP 36.7–37.7; O2SAT 93–98; BMI 19.3
--- NOTE | 2021-12-24 08:02 | ED.ABDPAIN ---
HPI - Abdominal Pain General Chief Complaint: Nausea/Vomiting/Diarrhea Stated Complaint: Nausea, Vomiting Time Seen by Provider: 12/24/21 07:51 History of Present Illness HPI narrative: 81-year-old female nonsmoker with history of RA and pneumonia presents with the chief complaint of persistent nausea and vomiting as well as 10/10 sharp and stabbing left lower quadrant pain since Friday. She is unclear if this came on quickly or gradually but symptoms have certainly worsened over the weekend. She has become fatigued, dizzy, weak and lightheaded and unable to keep anything down which includes food, drink and her medications. She denies any fever or chills. She denies any medication or dietary change. She has had no recent travel or exposure to ill persons. She denies runny nose, sore throat, chest pain, shortness of breath. She denies obvious urinary complaints such as dysuria, frequency or urgency, though she does states she is urinating less. She denies any history of the same, she has no history of diverticulitis or bowel obstruction. Her pain is worse when she moves and improves with rest. She was given Zofran by the paramedics and some normal saline Related Data Home Medications Medication Instructions Recorded Confirmed omeprazole 40 mg capsule,delayed 40 mg PO DAILY 09/29/18 12/24/21 release cholecalciferol (vitamin D3) 50 2,000 unit PO DAILY 10/28/19 12/24/21 mcg (2,000 unit) tablet (Vitamin D3) zoledronic acid 5 mg/100 mL in 5 mg IV PER PKG DIR 10/28/19 12/24/21 mannitol 5 %-water intravenous piggybck (Reclast) gabapentin 800 mg tablet 800 mg PO PRN PRN 12/04/21 12/24/21 Previous Rx's Medication Instructions Recorded hydrocodone 10 mg-acetaminophen 1 tab PO Q4H PRN #60 tab 11/01/19 325 mg tablet meclizine 25 mg tablet 25 mg PO DAILY PRN #20 tab 07/27/20 ondansetron 4 mg disintegrating 4 mg PO Q6H PRN #10 tab 11/17/21 tablet metoclopramide HCl 10 mg tablet 10 mg PO Q6H PRN 30 Days #30 tab 12/07/21 prochlorperazine maleate 5 mg 5 mg PO BID PRN #10 tab 12/10/21 tablet (Compazine) Allergies Allergy/AdvReac Type Severity Reaction Status Date / Time codeine Allergy Verified 12/10/21 10:56 morphine AdvReac Severe Vomiting Verified 12/10/21 10:56 meperidine [MEPERIDINE] AdvReac Unknown VOMITING Verified 12/10/21 10:56 oxycodone [OXYCODONE] AdvReac Unknown NAUSEA Verified 12/10/21 10:56 Review of Systems Review of Systems Narrative: GENERAL: See HPI HEENT: Denies sinus pain, ear pain, sore throat, difficulty swallowing, dizziness. RESPIRATORY: Denies dyspnea, cough, wheezing, hemoptysis, sputum. CARDIOVASCULAR: Denies chest pain, palpitations, orthopnea, edema, GASTROINTESTINAL: See HPI. : See HPI MUSCULOSKELETAL: denies weakness, joint pain, or bony pain SKIN: Denies rash, skin lesions, or other NEUROLOGIC: Denies weakness, headache, numbness, change in speech, confusion, seizures, incoordination. PSYCHIATRIC: No concerning psychosocial issues. 12 point review of systems is negative except for those stated above Patient History Medical History (Updated 12/25/21 @ 00:01 by ) GERD (gastroesophageal reflux disease) Peripheral edema Rheumatoid arthritis Surgical History History of hand surgery History of total left knee replacement History of total right knee replacement Status post total hip replacement, left Status post wrist surgery Family History Mother No problems noted. Father No problems noted. Social History household members: spouse Smoking Status: Never smoker alcohol intake: current Smoking Status: Never smoker alcohol intake frequency: holidays/special occasions only Substance Use Type: does not use Exam Narrative Exam Narrative: GENERAL: [81] year old patient appears stated age. Well-developed patient, in mild distress. HEAD: Atraumatic. Normocephalic. EYES: Pupils equal round and reactive. Extraocular motions intact. No scleral icterus. No injection or drainage. ENT: Dry mucous membranes Nose without bleeding, purulent drainage. Throat without erythema, tonsillar hypertrophy or exudate. Airway patent. NECK: Trachea midline. Non tender CARDIOVASCULAR: Regular rate and rhythm without murmurs, gallops, or rubs. RESPIRATORY: Clear to auscultation. Breath sounds equal bilaterally. No wheezes, rales, or rhonchi. GASTROINTESTINAL: Abdomen soft, significant tenderness in the left lower quadrant with localized peritonitis nondistended. Bowel sounds decreased EXTREMITIES: No edema or joint tenderness. BACK: Nontender without deformity or crepitance. No flank tenderness. NEURO: AOx3. SKIN: Poor skin turgor No rash or erythema of visible areas Initial Vital Signs Initial Vital Signs: Vital Signs Temperature 99.9 F H 12/24/21 07:40 Pulse Rate 99 H 12/24/21 07:40 Respiratory Rate 20 12/24/21 07:40 Blood Pressure 129/84 12/24/21 07:40 Pulse Oximetry 96 12/24/21 07:40 Course Orders Ordered: Acetaminophen (Acetaminophen 325 Mg Tablet) 975 mg PO Q8HR PRN PRN Reason: Pain, Mild (1-3) Hydrocodone Bitart/Acetaminophen (Hydrocodone/Acet 10/325 Tablet) 1 tab PO Q4H PRN PRN Reason: Back Pain Last Admin: 12/24/21 23:26 Dose: 1 tab Documented by: Admin: 12/24/21 18:00 Dose: 1 tab Documented by: RO Enoxaparin Sodium (Enoxaparin 40 Mg/0.4 Ml Syringe) 40 mg SUBCUT DAILY ALDO Gabapentin (Gabapentin 400 Mg Capsule) 800 mg PO TID PRN PRN Reason: Pain, Mild (1-3) Sodium Chloride (Normal Saline 0.9%) 1,000 mls @ 100 mls/hr IV CONT ALDO Last Admin: 12/25/21 02:23 Dose: 100 mls/hr Documented by: Infusion: 12/25/21 02:23 Dose: 100 mls/hr Documented by: Admin: 12/24/21 16:29 Dose: 100 mls/hr Documented by: RO Magnesium Sulfate (Magnesium Sulfate) 2 gm in 50 mls @ 25 mls/hr IV NOW ONE Stop: 12/25/21 09:13 Magnesium Oxide (Magnesium Oxide 400 Mg Tablet) 400 mg PO DAILY ALDO Metoclopramide HCl (Metoclopramide 10 Mg/2 Ml Inj) 5 mg IV AC ALDO Last Admin: 12/25/21 06:53 Dose: 5 mg Documented by: Admin: 12/24/21 16:29 Dose: 5 mg Documented by: RO Naloxone HCl (Naloxone 0.4 Mg/Ml Vial) 0.2 mg IV Q2MIN PRN PRN Reason: Opiate Reversal Ondansetron HCl (Ondansetron 4 Mg/2 Ml Inj) 4 mg IV Q8HR PRN PRN Reason: Nausea And Vomiting Last Admin: 12/25/21 05:22 Dose: 4 mg Documented by: Admin: 12/24/21 21:40 Dose: 4 mg Documented by: CIARAN Pantoprazole Sodium (Pantoprazole Dr 40 Mg Tablet) 40 mg PO 0700,2100 ALDO Last Admin: 12/24/21 20:26 Dose: 40 mg Documented by: CIARAN Vitamin D (Cholecalciferol (Vitamin D3) 1,000 Unit Tablet) 2,000 unit PO DAILY ALDO Discontinued Medications Hydromorphone HCl (Hydromorphone 0.5 Mg Inj) 0.5 mg IV NOW ONE Stop: 12/24/21 07:52 Last Admin: 12/24/21 08:07 Dose: 0.5 mg Documented by: DELFINA Sodium Chloride (Normal Saline 0.9%) 1,000 mls @ 1,000 mls/hr IV BOLUS ONE Stop: 12/24/21 08:50 Last Infusion: 12/24/21 11:11 Dose: 0 mls/hr Documented by: Admin: 12/24/21 08:08 Dose: 1,000 mls/hr Documented by: DELFINA Ondansetron HCl (Ondansetron 4 Mg/2 Ml Inj) 4 mg IV NOW ONE Stop: 12/24/21 14:23 Last Admin: 12/24/21 14:28 Dose: 4 mg Documented by: MELISSA Oxycodone HCl (Oxycodone Ir 5 Mg Tablet) 2.5 mg PO Q4HR PRN PRN Reason: Pain, Moderate (4-6) Vital Signs Vital signs: Vital Signs - 8 hr 12/24/21 07:40 12/24/21 07:52 12/24/21 08:00 Temperature 99.9 F H Pulse Rate 99 H 105 H 101 H Pulse Rate [Orthostatic Lying] Pulse Rate [Orthostatic Sitting] Pulse Rate [Orthostatic Standing] Respiratory Rate 20 Blood Pressure 129/84 Blood Pressure [Orthostatic Lying] Blood Pressure [Orthostatic Sitting] Blood Pressure [Orthostatic Standing] Pulse Oximetry 96 96 97 12/24/21 08:30 12/24/21 09:00 12/24/21 09:01 Temperature Pulse Rate 136 H 106 H 111 H Pulse Rate [Orthostatic Lying] Pulse Rate [Orthostatic Sitting] Pulse Rate [Orthostatic Standing] Respiratory Rate 14 16 15 Blood Pressure 149/67 H Blood Pressure [Orthostatic Lying] Blood Pressure [Orthostatic Sitting] Blood Pressure [Orthostatic Standing] Pulse Oximetry 95 96 12/24/21 09:30 12/24/21 10:00 12/24/21 10:30 Temperature Pulse Rate 103 H 95 H 94 H Pulse Rate [Orthostatic Lying] Pulse Rate [Orthostatic Sitting] Pulse Rate [Orthostatic Standing] Respiratory Rate 14 12 13 Blood Pressure 129/72 129/61 132/64 Blood Pressure [Orthostatic Lying] Blood Pressure [Orthostatic Sitting] Blood Pressure [Orthostatic Standing] Pulse Oximetry 97 98 97 12/24/21 11:00 12/24/21 11:30 12/24/21 11:51 Temperature Pulse Rate 112 H 105 H Pulse Rate [Orthostatic Lying] Pulse Rate [Orthostatic Sitting] Pulse Rate [Orthostatic Standing] Respiratory Rate 20 16 Blood Pressure 153/84 H 138/68 128/56 L Blood Pressure [Orthostatic Lying] Blood Pressure [Orthostatic Sitting] Blood Pressure [Orthostatic Standing] Pulse Oximetry 97 96 12/24/21 11:53 12/24/21 11:56 12/24/21 11:59 Temperature Pulse Rate 109 H 115 H Pulse Rate [Orthostatic Lying] 122 H Pulse Rate [Orthostatic Sitting] 109 H Pulse Rate [Orthostatic Standing] 105 H Respiratory Rate 16 21 Blood Pressure 127/60 159/81 H Blood Pressure [Orthostatic Lying] 159/81 H Blood Pressure [Orthostatic Sitting] 127/60 Blood Pressure [Orthostatic Standing] 128/56 L Pulse Oximetry 96 94 12/24/21 12:00 12/24/21 12:30 12/24/21 13:00 Temperature Pulse Rate 108 H 102 H 103 H Pulse Rate [Orthostatic Lying] Pulse Rate [Orthostatic Sitting] Pulse Rate [Orthostatic Standing] Respiratory Rate 23 16 18 Blood Pressure 157/70 H 128/59 L 131/70 Blood Pressure [Orthostatic Lying] Blood Pressure [Orthostatic Sitting] Blood Pressure [Orthostatic Standing] Pulse Oximetry 97 96 97 12/24/21 13:30 12/24/21 14:00 Temperature Pulse Rate 102 H 98 H Pulse Rate [Orthostatic Lying] Pulse Rate [Orthostatic Sitting] Pulse Rate [Orthostatic Standing] Respiratory Rate 15 15 Blood Pressure 136/74 137/69 Blood Pressure [Orthostatic Lying] Blood Pressure [Orthostatic Sitting] Blood Pressure [Orthostatic Standing] Pulse Oximetry 95 95 MDM - Abdominal Pain Lab Data Result diagrams: 12/24/21 07:20 12/25/21 04:25 Labs: Lab Results 12/24/21 12/24/21 12/24/21 Range/Units 07:20 07:20 07:20 WBC 11.3 H (4.5-11.0) X10^3/uL RBC 4.03 (4.0-5.2) X10^6/uL Hgb 13.2 (12.0-16.0) g/dL Hct 40.9 (36-46) % MCV 101.3 H (80-100) fL MCH 32.7 (26-34) PG MCHC 32.3 (30-36) % RDW 15.2 H (11.6-14.8) % Plt Count 333 (150-400) X10^3/uL Neut % (Auto) 75.5 H (50-75) % Lymph % (Auto) 12.8 L (25-40) % Howell % (Auto) 9.8 (3-14) % Eos % (Auto) 1.3 L (2-4) % Baso % (Auto) 0.6 (0-2) % Neut # (Auto) 8500 H (4388-5154) /uL Lymph # (Auto) 1500 (9310-0149) /uL Howell # (Auto) 1100 H (0-900) /uL Eos # (Auto) 100 (0-450) /uL Baso # (Auto) 100 (0-100) /uL Sodium 137 (137-145) mmol/L Potassium 3.8 (3.4-5.1) mmol/L Chloride 99 (98-107) mmol/L Carbon Dioxide 26 (22-32) mmol/L BUN 5 L (7-17) mg/dL Creatinine 0.48 L (0.52-1.04) mg/dL Estimated GFR > 60.0 (>60) mL/min BUN/Creatinine Ratio 10.4 (6-22) Glucose 65 L (80-110) mg/dL Lactate 1.2 (0.7-2.1) mmol/L Calcium 9.3 (8.4-10.2) mg/dL Magnesium 1.5 L (1.6-2.3) mg/dL Total Bilirubin 1.0 (0.2-1.3) mg/dL AST 25 (14-36) IU/L ALT 8 (<35) IU/L Alkaline Phosphatase 74 (38-126) U/L Total Protein 6.8 (6.3-8.2) g/dL Albumin 3.9 (3.5-5.0) g/dL Globulin 2.9 (1.7-4.1) g/dL Albumin/Globulin Ratio 1.3 (1.0-2.8) Lipase 36 (23-300) U/L Urine RBC (0-5/HPF) Urine WBC (0-5/HPF) Urine Bacteria (None) Ur Culture Indicated? Micro UA Comment SARS-CoV-2 (PCR) (Negative) Influenza A (RT-PCR) (NEGATIVE) Influenza B (RT-PCR) (NEGATIVE) 12/24/21 12/24/21 Range/Units 08:15 10:32 WBC (4.5-11.0) X10^3/uL RBC (4.0-5.2) X10^6/uL Hgb (12.0-16.0) g/dL Hct (36-46) % MCV (80-100) fL MCH (26-34) PG MCHC (30-36) % RDW (11.6-14.8) % Plt Count (150-400) X10^3/uL Neut % (Auto) (50-75) % Lymph % (Auto) (25-40) % Howell % (Auto) (3-14) % Eos % (Auto) (2-4) % Baso % (Auto) (0-2) % Neut # (Auto) (4143-4217) /uL Lymph # (Auto) (9396-8751) /uL Howell # (Auto) (0-900) /uL Eos # (Auto) (0-450) /uL Baso # (Auto) (0-100) /uL Sodium (137-145) mmol/L Potassium (3.4-5.1) mmol/L Chloride (98-107) mmol/L Carbon Dioxide (22-32) mmol/L BUN (7-17) mg/dL Creatinine (0.52-1.04) mg/dL Estimated GFR (>60) mL/min BUN/Creatinine Ratio (6-22) Glucose (80-110) mg/dL Lactate (0.7-2.1) mmol/L Calcium (8.4-10.2) mg/dL Magnesium (1.6-2.3) mg/dL Total Bilirubin (0.2-1.3) mg/dL AST (14-36) IU/L ALT (<35) IU/L Alkaline Phosphatase (38-126) U/L Total Protein (6.3-8.2) g/dL Albumin (3.5-5.0) g/dL Globulin (1.7-4.1) g/dL Albumin/Globulin Ratio (1.0-2.8) Lipase (23-300) U/L Urine RBC None seen (0-5/HPF) Urine WBC None seen (0-5/HPF) Urine Bacteria None seen (None) Ur Culture Indicated? Cult not indicated Micro UA Comment Microscopic normal SARS-CoV-2 (PCR) Negative (Negative) Influenza A (RT-PCR) Flu a negative (NEGATIVE) Influenza B (RT-PCR) Flu b negative (NEGATIVE) Point of care testing: Urine Dip Bedside Urine Glucose Negative Bedside Urine Bilirubin - Negative Bedside Urine Ketone +++ 80 Urine Specific [place] 1.015 Bedside Urine Occult Blood + Bedside Urine pH 6.0 Bedside Urine Protein - Negative Bedside Urine Urobilinogen - Negative Bedside Urine Nitrite - Negative Bedside Urine Leukocytes - Negative Esterase Discharge Plan Departure Patient Disposition: Admitted as Observation Clinical Impression: Vomiting, Acute dehydration Admit Date/Time: 12/24/21 14:56 Admit Provider: Anil Quiroz
[2021-12-24 08:05] LABS: Alanine Aminotransferase 8 IU/L (<35); Albumin 3.9 g/dL (3.5-5.0); Albumin Globulin Ratio 1.3 (1.0-2.8); Alkaline Phosphatase 74 U/L (38-126); Aspartate Aminotransferase 25 IU/L (14-36); BUN Creatinine Ratio 10.4 (6-22); Blood Urea Nitrogen 5 mg/dL (7-17); Calcium 9.3 mg/dL (8.4-10.2); Carbon Dioxide 26 mmol/L (22-32); Chloride 99 mmol/L (98-107); Estimated Glomerular Filt Rate > 60.0 mL/min (>60); Globulin 2.9 g/dL (1.7-4.1); Glucose 65 mg/dL (80-110); HEMOLYSIS 24 (0-50); Lipase 36 U/L (23-300); Magnesium 1.5 mg/dL (1.6-2.3); Potassium 3.8 mmol/L (3.4-5.1); Sodium 137 mmol/L (137-145); Total Protein 6.8 g/dL (6.3-8.2)
[2021-12-24 08:06] LABS: Lactate (Lactic Acid) 1.2 mmol/L (0.7-2.1)
--- NOTE | 2021-12-24 08:06 | DI.CT.S_ITS ---
PROCEDURE: CT ABDOMEN PELVIS W CON INDICATIONS: severe LLQ pain with nausea and vomiting TECHNIQUE: After the administration of IV contrast, axial sections were acquired from the lung bases to the pubic symphysis. Coronal and sagittal reformats were performed. For radiation dose reduction, the following was used: automated exposure control, adjustment of mA and/or kV according to patient size. COMPARISON: [facility], CT, CT ABDOMEN PELVIS W CON, 11/17/2021, 9:00. [facility], CT, CT ABDOMEN PELVIS W CON, 12/03/2021, 10:09. FINDINGS: Image quality: Portions of the lower pelvis are suboptimally evaluated secondary to metallic streak artifact from hip arthroplasty and sacral fusion. Lung bases: Unremarkable. Heart: No significant findings. ABDOMEN: Liver: Hepatic steatosis is present. There is incidental note of bowel interposition anterior to the liver. Gallbladder: Unremarkable. Biliary ducts: Unremarkable. Pancreas: Unremarkable. Spleen: Unremarkable. Adrenal Glands: Unremarkable. Kidneys and Ureters: Unremarkable. Stomach and Bowel: Stomach, small bowel loops, and colon are unchanged in appearance, scattered colonic diverticula are present without associated inflammatory change. There are mild fluid-filled appearance of scattered small bowel loops, relatively unchanged. Peritoneum: No abnormal intraperitoneal fluid. No free air. Ventral Wall: No hernia. Abdominal Nodes: No retroperitoneal or mesenteric adenopathy by size criteria. Vessels: Aorta and inferior vena cava are normal in size. PELVIS: Pelvic Organs: Unremarkable. Bladder: Unremarkable. Pelvic Nodes: No enlarged lymph nodes. Miscellaneous: No inguinal hernias are seen. Bones: Old left inferior pubic ramus fracture is present. Unchanged lumbar thoracic compression deformities are again noted. IMPRESSION: Relatively stable appearance of mildly dilated fluid-filled loops of small bowel overall nonspecific. No gross obstruction. Ileus can not be excluded. Diverticulosis. Dictated by: Ximena Varela M.D. on 12/24/2021 at 9:00 Approved by: Ximena Varela M.D. on 12/24/2021 at 9:06
[2021-12-24 08:07] LABS: Add Manual Diff / Slide Review NO; Basophils Absolute Auto 100 /uL (0-100); Basophils Percent Auto 0.6 % (0-2); Eosinophils Absolute Auto 100 /uL (0-450); Eosinophils Percent Auto 1.3 % (2-4); Hematocrit 40.9 % (36-46); Hemoglobin 13.2 g/dL (12.0-16.0); Lymphocytes Absolute Auto 1500 /uL (1100-4500); Lymphocytes Percent Auto 12.8 % (25-40); Mean Corpuscular HGB Conc 32.3 % (30-36); Mean Corpuscular Hemoglobin 32.7 PG (26-34); Mean Corpuscular Volume 101.3 fL (80-100); Monocytes Absolute Auto 1100 /uL (0-900); Monocytes Percent Auto 9.8 % (3-14); Neutrophils Absolute Auto 8500 /uL (1500-7000); Neutrophils Percent Auto 75.5 % (50-75); Platelet Count 333 X10^3/uL (150-400); Red Blood Cell Count 4.03 X10^6/uL (4.0-5.2); Red Cell Distribution Width 15.2 % (11.6-14.8); White Blood Cell Count 11.3 X10^3/uL (4.5-11.0)
[2021-12-24] MEDS: HYDROMORPHONE 0.5 MG INJ IV (08:07)
[2021-12-24] MEDS: SODIUM CHLORIDE 0.9% 1,000 ML 1000 ML IV (08:08)
[2021-12-24 09:06] LABS: Influenza A - CEPHEID Flu A NEGATIVE (NEGATIVE); Influenza B - CEPHEID Flu B NEGATIVE (NEGATIVE)
[2021-12-24 09:08] LABS: COVID-19 CEPHEID PCR (VTM/NP) Negative (Negative)
[2021-12-24 11:59] LABS: Bacteria Urine None Seen; Culture Indicated Urine Cult Not Indicated; RBC Urine None Seen (0-5/HPF); Urine Comments Microscopic Normal; WBC Urine None Seen (0-5/HPF)
[2021-12-24] MEDS: ONDANSETRON 4 MG/2 ML INJ IV ×2 (14:28→21:40)
--- NOTE | 2021-12-24 15:36 | P.HP_ITS ---
History of Present Illness History of Present Illness Date Patient Seen: 12/24/21 Time Patient Seen: 14:45 Chief complaint: Nausea, Vomiting Narrative: Ms. Mariely Man is a 77-year-old female with a past medical history significant for rheumatoid arthritis on methotrexate and prednisone, gastroesophageal reflux, intermittent nausea who presents again with 3 weeks of persistent nausea and vomiting and inability to tolerate much oral intake.? She was admitted approximately a month ago and improved with scheduled medications with similar complaint at that time. She was better for about a week when her nausea started to return. Patient states that for the past 3 weeks she has had intermittent nausea with persistent nonbloody and nonbilious vomiting.? She denies any diarrhea, abdominal pain, melena or hematochezia, chest pain, palpitations, shortness of breath, fever.? She does have some chills.? She does not endorse any known sick contacts either.? She has not been able to eat or drink much at all.? She does endorse being able to take her chronic pain medications, but intermittently vomits when taking minimal liquids.? Her primary care provider had tapered her off of her prednisone which was stopped on December 03. She does intermittently become dizzy, not particularly more notable with standing or positional changes.? She denies any back pain, changes in her chronic arthritis. Patient History Medical History GERD (gastroesophageal reflux disease) Peripheral edema Rheumatoid arthritis Surgical History History of hand surgery History of total left knee replacement History of total right knee replacement Status post total hip replacement, left Status post wrist surgery Family & Social History Family History Mother No problems noted. Father No problems noted. Social History: household members spouse Prior Living Arrangements House Safety & Behavioral: Feels Safe in Current Yes Environment Been Physically Hurt or No Threatened By a Person Suicidal Ideation Description None Tobacco & Substance use: Smoking Status Never smoker alcohol intake current alcohol intake frequency holiday/special occasion Substance Use Type does not use Meds Home Medications and Allergies Home Medications Medication Instructions Recorded Confirmed Type omeprazole 40 mg capsule,delayed 40 mg PO DAILY 09/29/18 12/04/21 History release cholecalciferol (vitamin D3) 50 2,000 unit PO DAILY 10/28/19 12/04/21 History mcg (2,000 unit) tablet (Vitamin D3) zoledronic acid 5 mg/100 mL in 5 mg IV PER PKG DIR 10/28/19 12/04/21 History mannitol 5 %-water intravenous piggybck (Reclast) hydrocodone 10 mg-acetaminophen 1 tab PO Q4H PRN #60 tab 11/01/19 12/04/21 Rx 325 mg tablet meclizine 25 mg tablet 25 mg PO DAILY PRN #20 tab 07/27/20 12/04/21 Rx ondansetron 4 mg disintegrating 4 mg PO Q6H PRN #10 tab 11/17/21 12/04/21 Rx tablet gabapentin 800 mg tablet 800 mg PO DAILY 12/04/21 12/04/21 History metoclopramide HCl 10 mg tablet 10 mg PO Q6H PRN 30 Days #30 tab 12/07/21 Rx prochlorperazine maleate 5 mg 5 mg PO BID PRN #10 tab 12/10/21 Rx tablet (Compazine) Allergies Allergy/AdvReac Type Severity Reaction Status Date / Time codeine Allergy Verified 12/10/21 10:56 morphine AdvReac Severe Vomiting Verified 12/10/21 10:56 meperidine [MEPERIDINE] AdvReac Unknown VOMITING Verified 12/10/21 10:56 oxycodone [OXYCODONE] AdvReac Unknown NAUSEA Verified 12/10/21 10:56 Review of Systems Review of Systems Narrative: All other systems reviewed with the patient and are negative unless otherwise stated. Exam Vital Signs (past 8 hours): - 12/24/21 07:40 12/24/21 07:52 12/24/21 08:00 Temperature 99.9 F H Pulse Rate 99 H 105 H 101 H Pulse Rate [Orthostatic Lying] Pulse Rate [Orthostatic Sitting] Pulse Rate [Orthostatic Standing] Respiratory Rate 20 Blood Pressure 129/84 Blood Pressure [Orthostatic Lying] Blood Pressure [Orthostatic Sitting] Blood Pressure [Orthostatic Standing] Pulse Oximetry 96 96 97 12/24/21 08:30 12/24/21 09:00 12/24/21 09:01 Temperature Pulse Rate 136 H 106 H 111 H Pulse Rate [Orthostatic Lying] Pulse Rate [Orthostatic Sitting] Pulse Rate [Orthostatic Standing] Respiratory Rate 14 16 15 Blood Pressure 149/67 H Blood Pressure [Orthostatic Lying] Blood Pressure [Orthostatic Sitting] Blood Pressure [Orthostatic Standing] Pulse Oximetry 95 96 12/24/21 09:30 12/24/21 10:00 12/24/21 10:30 Temperature Pulse Rate 103 H 95 H 94 H Pulse Rate [Orthostatic Lying] Pulse Rate [Orthostatic Sitting] Pulse Rate [Orthostatic Standing] Respiratory Rate 14 12 13 Blood Pressure 129/72 129/61 132/64 Blood Pressure [Orthostatic Lying] Blood Pressure [Orthostatic Sitting] Blood Pressure [Orthostatic Standing] Pulse Oximetry 97 98 97 12/24/21 11:00 12/24/21 11:30 12/24/21 11:51 Temperature Pulse Rate 112 H 105 H Pulse Rate [Orthostatic Lying] Pulse Rate [Orthostatic Sitting] Pulse Rate [Orthostatic Standing] Respiratory Rate 20 16 Blood Pressure 153/84 H 138/68 128/56 L Blood Pressure [Orthostatic Lying] Blood Pressure [Orthostatic Sitting] Blood Pressure [Orthostatic Standing] Pulse Oximetry 97 96 12/24/21 11:53 12/24/21 11:56 12/24/21 11:59 Temperature Pulse Rate 109 H 115 H Pulse Rate [Orthostatic Lying] 122 H Pulse Rate [Orthostatic Sitting] 109 H Pulse Rate [Orthostatic Standing] 105 H Respiratory Rate 16 21 Blood Pressure 127/60 159/81 H Blood Pressure [Orthostatic Lying] 159/81 H Blood Pressure [Orthostatic Sitting] 127/60 Blood Pressure [Orthostatic Standing] 128/56 L Pulse Oximetry 96 94 12/24/21 12:00 12/24/21 12:30 12/24/21 13:00 Temperature Pulse Rate 108 H 102 H 103 H Pulse Rate [Orthostatic Lying] Pulse Rate [Orthostatic Sitting] Pulse Rate [Orthostatic Standing] Respiratory Rate 23 16 18 Blood Pressure 157/70 H 128/59 L 131/70 Blood Pressure [Orthostatic Lying] Blood Pressure [Orthostatic Sitting] Blood Pressure [Orthostatic Standing] Pulse Oximetry 97 96 97 12/24/21 13:30 12/24/21 14:00 12/24/21 14:30 Temperature Pulse Rate 102 H 98 H 102 H Pulse Rate [Orthostatic Lying] Pulse Rate [Orthostatic Sitting] Pulse Rate [Orthostatic Standing] Respiratory Rate 15 15 16 Blood Pressure 136/74 137/69 129/60 Blood Pressure [Orthostatic Lying] Blood Pressure [Orthostatic Sitting] Blood Pressure [Orthostatic Standing] Pulse Oximetry 95 95 96 Oxygen Delivery Method Room Air Narrative Exam Narrative: General: Elderly thin frail female lying bed and appears comfortable, no acute d istress. HEENT: Normocephalic, atraumatic. External ears without defect. Pupils equal, round, and reactive to light.? Anicteric sclerae, moist conjunctivae, and no lid lag. Mucous membranes moist. Neck: Supple with full range of motion. No lymphadenopathy or thyromegaly. Cardiovascular:? Tachycardic with regular rhythm without murmurs, rubs, or gallops. Pulmonary: Clear to auscultation bilaterally without crackles, wheezes, or rhonchi.? Normal respiratory effort with no use of accessory muscles. Abdomen:? Soft, nontender, and nondistended. Extremities: No clubbing, cyanosis, or edema. RA changes in hands, knees, and feet bilaterally.? Skin: Normal temperature, turgor, and texture; no rash, ulcers, or subcutaneous nodules appreciated. Neurological: Cranial nerves grossly intact. Psychiatric: Normal mood and affect. Alert and oriented to person, place, and time. Objective Labs Result Diagrams: 12/24/21 07:20 12/24/21 07:20 Labs: Laboratory Results - last 24 hr 12/24/21 12/24/21 12/24/21 07:20 07:20 07:20 WBC 11.3 H RBC 4.03 Hgb 13.2 Hct 40.9 MCV 101.3 H MCH 32.7 MCHC 32.3 RDW 15.2 H Plt Count 333 Neut % (Auto) 75.5 H Lymph % (Auto) 12.8 L Gove % (Auto) 9.8 Eos % (Auto) 1.3 L Baso % (Auto) 0.6 Neut # (Auto) 8500 H Lymph # (Auto) 1500 Gove # (Auto) 1100 H Eos # (Auto) 100 Baso # (Auto) 100 Sodium 137 Potassium 3.8 Chloride 99 Carbon Dioxide 26 BUN 5 L Creatinine 0.48 L Estimated GFR > 60.0 BUN/Creatinine Ratio 10.4 Glucose 65 L Lactate 1.2 Calcium 9.3 Magnesium 1.5 L Total Bilirubin 1.0 AST 25 ALT 8 Alkaline Phosphatase 74 Total Protein 6.8 Albumin 3.9 Globulin 2.9 Albumin/Globulin Ratio 1.3 Lipase 36 Urine RBC Urine WBC Urine Bacteria Ur Culture Indicated? Micro UA Comment SARS-CoV-2 (PCR) Influenza A (RT-PCR) Influenza B (RT-PCR) 12/24/21 12/24/21 08:15 10:32 WBC RBC Hgb Hct MCV MCH MCHC RDW Plt Count Neut % (Auto) Lymph % (Auto) Gove % (Auto) Eos % (Auto) Baso % (Auto) Neut # (Auto) Lymph # (Auto) Gove # (Auto) Eos # (Auto) Baso # (Auto) Sodium Potassium Chloride Carbon Dioxide BUN Creatinine Estimated GFR BUN/Creatinine Ratio Glucose Lactate Calcium Magnesium Total Bilirubin AST ALT Alkaline Phosphatase Total Protein Albumin Globulin Albumin/Globulin Ratio Lipase Urine RBC None seen Urine WBC None seen Urine Bacteria None seen Ur Culture Indicated? Cult not indicated Micro UA Comment Microscopic normal SARS-CoV-2 (PCR) Negative Influenza A (RT-PCR) Flu a negative Influenza B (RT-PCR) Flu b negative Assessment & Plan Assessment & Plan narrative: Ms. Mariely Man is a 77-year-old female with a past medical history significant for rheumatoid arthritis on methotrexate and prednisone, gastroesophageal reflux, intermittent nausea who presents with 3 weeks of persistent nausea and vomiting and inability to tolerate much oral intake. 1. Intractable nausea and vomiting ?- unclear etiology, may be related to acute cystitis. Possibly worsened with dehydration, mild hypoglycemia as well. changed from IV to oral antibiotics. ?- keep telemetery for tachycardia and electrolyte abnormlalities ?- symptom relief with zofran prn, and reglan AC scheduled. ?- cortisol level of 7 previous admission. Will try and obtain a cortisol stim ulation test tomorrow AM. ?- abdominal CT without obvious source, shows possible enteritis. RUQ ultrasound without any pathology. ?- consider endoscopy depending on stim testing. 2. Rheumatoid arthritis, chronic, stable -Patient would like to try and stop methtrexate, she has not taken it in 3 wee ks.? continue prednisone. -patient with chronic pain, continue norco. 3. Gastroesophageal reflux disorder, chronic, stable. ?- continue pantoprazole. 4. Hypomagnesemia, acute ?- likely due to decreased oral intake. Replete as necessary. Code: Full as discussed with the patient. Surrogate decision maker she states is her . Dispo: Admitted under observation. DVT: Lovenox daily I have utilized all available immediate resources to obtain, update, or review the patient's current medications. Time Spent With Patient Critical Care time: I spent a total of [] minutes of critical care time on this patient's care toda y; this time is exclusive of procedural time.
[2021-12-24] MEDS: METOCLOPRAMIDE 10 MG/2 ML INJ 5 MG IV (16:29)
[2021-12-24] MEDS: SODIUM CHLORIDE 0.9% 1,000 ML 100 ML IV (16:29)
[2021-12-24] MEDS: HYDROCODONE/ACET 10/325 TABLET 1 TAB PO ×2 (18:00→23:26)
--- NOTE | 2021-12-24 18:02 | PC.NURSE ---
Addendum entered by Beatriz Nathan R.N. 12/25/21 18:16: Patient tolerated some regular food at dinner. She is resting now. Denies nausea. Addendum entered by Beatriz Nathan R.N. 12/25/21 15:00: Patient just taken down to pacu for egd. Original Note: Assess-Patient is alert and oriented x3, she complained of nausea x1, given reglan and helpful. Patient is on bed rest now, she will most likely work with physical therapy to get stronger, as she is weak now. Just given vicodin and going to sleep. Voices no other complaints at this time.
[2021-12-24] MEDS: PANTOPRAZOLE DR 40 MG TABLET PO (20:26)
[2021-12-25] VITALS (14 sets, daily range): BP systolic 101–152; BP diastolic 59–88; PULSE 91–130; RESP 12–22; TEMP 36–38.1; O2SAT 94–100; BMI 19.3
--- NOTE | 2021-12-25 | PATH_ITS ---
[facility] Accession Number: [id number] No. of containers..01 Tissue . 01 Material submitted: . gastrointestinal site - GASTRIC BIOPSY . 02 Diagnosis: Stomach, Biopsy: Antral and body-type mucosa with mild chronic gastritis. Negative for Helicobacter by immunohistochemistry. Negative for intestinal metaplasia. Negative for dysplasia and malignancy. MRV 12/28/2021 1446 Local . 02 Electronically signed: . Jaymie Ellison MD, Pathologist NPI- [id number] . 01 Gross description: . GASTRIC BIOPSY: Received in formalin are 2 fragment(s) of trevino, soft tissue measuring 0.3 x 0.2 x 0.2 cm to 0.3 x 0.2 x 0.1 cm submitted entirely in 1 cassette(s) /CPE 12/26/2021 0421 Local . 02 Microscopic: . An immunohistochemical stain is performed to evaluate for Helicobacter organisms and is negative. The control stain showed appropriate reactivity. . * This test was developed and its performance characteristics determined by [facility]. It has not been cleared or approved by the U.S. Food and Drug Administration. The FDA has determined that such clearance or approval is not necessary. This test is used for clinical purposes. It should not be regarded as investigational or for research. . 02 Pathologist provided ICD-10: R10.9 . 02 CPT . 883722, B12212 Specimen Comment: A courtesy copy of this report has been sent to [phone] Performed at: 01 [facility] [address], [place], [place] [id number] MD Jason Louis MD Phone: [phone] Performed at: 02 [facility] [place] [address] [address], [place] [id number] MD Jaymie Ellison MD Phone: [phone]
[2021-12-25] MEDS: SODIUM CHLORIDE 0.9% 1,000 ML 100 ML IV ×2 (02:23→14:04)
[2021-12-25] MEDS: ONDANSETRON 4 MG/2 ML INJ IV ×2 (05:22→15:52)
[2021-12-25 05:41] LABS: Calcium 7.7 mg/dL (8.4-10.2); Carbon Dioxide 20 mmol/L (22-32); Chloride 103 mmol/L (98-107); Estimated Glomerular Filt Rate > 60.0 mL/min (>60); Glucose 53 mg/dL (80-110); HEMOLYSIS < 15 (0-50); Magnesium 1.3 mg/dL (1.6-2.3); Potassium 3.4 mmol/L (3.4-5.1); Sodium 134 mmol/L (137-145)
[2021-12-25 05:42] LABS: BUN Creatinine Ratio 5.4 (6-22); Blood Urea Nitrogen < 2 mg/dL (7-17)
[2021-12-25] MEDS: METOCLOPRAMIDE 10 MG/2 ML INJ 5 MG IV ×2 (06:53→11:30)
[2021-12-25] MEDS: COSYNTROPIN 0.25 MG VIAL IV (09:15)
[2021-12-25] MEDS: HYDROCODONE/ACET 10/325 TABLET 1 TAB PO (09:28)
[2021-12-25] MEDS: CHOLECALCIFEROL (VITAMIN D3) 1,000 UNIT TABLET 2000 UNIT PO (09:28)
[2021-12-25] MEDS: MAGNESIUM OXIDE 400 MG TABLET PO (09:28)
[2021-12-25] MEDS: ENOXAPARIN 40 MG/0.4 ML SYRINGE SUBCUT (09:29)
[2021-12-25] MEDS: MAGNESIUM SULFATE 2 GM/50 ML PIGGYBACK IV (09:29)
[2021-12-25] MEDS: PANTOPRAZOLE DR 40 MG TABLET PO ×2 (09:29→21:09)
[2021-12-25 10:23] LABS: Cortisol Basline for Stim. 12.1 ug/dL
[2021-12-25 11:23] LABS: Cortisol 60 MIN Post Stim. 29.2 ug/dL
[2021-12-25 11:24] LABS: Cortisol 30 MIN Post Stim. 23.2 ug/dL
[2021-12-25] MEDS: POTASSIUM CHLORIDE 20 MEQ TAB PO (11:30)
--- NOTE | 2021-12-25 12:07 | P.PN_ITS ---
Subjective Subjective Date Patient Seen: 12/25/21 Time Patient Seen: 12:08 Interval history: Tolerating minimal clears today. Vomited this morning but symptoms improved with combination of zofran and reglan. No fever or abdominal pain. Exam Vital Signs (past 8 hours): - 12/25/21 07:45 12/25/21 09:29 Temperature 98.4 F Pulse Rate 130 H Respiratory Rate 14 Blood Pressure 109/77 Pulse Oximetry 94 95 Oxygen Delivery Method Room Air Oxygen Flow Rate 0 Narrative Exam Narrative: General: Elderly thin frail female lying bed and appears comfortable, no acute distress. HEENT: Normocephalic, atraumatic. External ears without defect. Pupils equal, round, and reactive to light.? Anicteric sclerae, moist conjunctivae, and no lid lag. Mucous membranes moist. Neck: Supple with full range of motion. No lymphadenopathy or thyromegaly. Cardiovascular:? Tachycardic with regular rhythm without murmurs, rubs, or gallops. Pulmonary: Clear to auscultation bilaterally without crackles, wheezes, or rhonchi.? Normal respiratory effort with no use of accessory muscles. Abdomen:? Soft, nontender, and nondistended. Extremities: No clubbing, cyanosis, or edema. RA changes in hands, knees, and feet bilaterally.? Skin: Normal temperature, turgor, and texture; no rash, ulcers, or subcutaneous nodules appreciated. Neurological: Cranial nerves grossly intact. Psychiatric: Normal mood and affect. Alert and oriented to person, place, and time. Objective Labs Result Diagrams: 12/24/21 07:20 12/25/21 04:25 Labs: Laboratory Results - last 24 hr 12/25/21 12/25/21 04:25 08:00 Sodium 134 L Potassium 3.4 Chloride 103 Carbon Dioxide 20 L BUN < 2 L Creatinine 0.37 L Estimated GFR > 60.0 BUN/Creatinine Ratio 5.4 L Glucose 53 L Calcium 7.7 L Magnesium 1.3 L Cortisol Response [facility] Medical History (Updated 12/25/21 @ 00:01 by ) GERD (gastroesophageal reflux disease) Peripheral edema Rheumatoid arthritis Surgical History History of hand surgery History of total left knee replacement History of total right knee replacement Status post total hip replacement, left Status post wrist surgery Family History Mother No problems noted. Father No problems noted. Social History household members: spouse Smoking Status: Never smoker alcohol intake: current Assessment & Plan Assessment & Plan narrative: Ms. Mariely Man is a 77-year-old female with a past medical history significant for rheumatoid arthritis on methotrexate and prednisone, gastroesophageal reflux, intermittent nausea who presents with 3 weeks of persistent nausea and vomiting and inability to tolerate much oral intake. 1. Intractable nausea and vomiting ?- unclear etiology, UA negative. Possibly worsened with dehydration, mild hypoglycemia as well. ?- keep telemetery for tachycardia and electrolyte abnormlalities ?- symptom relief with zofran prn, and reglan AC scheduled. ?- cortisol level of 7 previous admission. Cortisol stim test today with baseline of 12 in the AM, but ?- abdominal CT without obvious source, shows possible enteritis. RUQ ultrasound without any pathology. ?- General surgery consultation today for possible EGD. 2. Rheumatoid arthritis, chronic, stable -prednisone stopped by PCP 3 weeks ago. -patient with chronic pain, continue norco. 3. Gastroesophageal reflux disorder, chronic, stable. ?- continue pantoprazole. 4. Hypomagnesemia, acute ?- likely due to decreased oral intake. Replete as necessary. Code: Full as discussed with the patient. Surrogate decision maker she states is her . Dispo: Admitted under observation. DVT: Lovenox daily I have utilized all available immediate resources to obtain, update, or review the patient's current medications. Time Spent With Patient Critical Care time: I spent a total of [] minutes of critical care time on this patient's care today; this time is exclusive of procedural time.
--- NOTE | 2021-12-25 14:30 | OT.IP.EVAL ---
Surgery Performed Operation Date: 12/25/21 16:00 Actual Procedures p Esophagogastroduodenoscopy - Tony Early MD Past Medical History (Last Reviewed 12/25/21 @ 15:08 by Tony Early MD) GERD (gastroesophageal reflux disease) History of hand surgery History of total left knee replacement History of total right knee replacement Peripheral edema Rheumatoid arthritis Status post total hip replacement, left Status post wrist surgery Surgical History (Last Reviewed 12/25/21 @ 15:08 by Tony Early MD) History of hand surgery History of total left knee replacement History of total right knee replacement Status post total hip replacement, left Status post wrist surgery Occupational Therapy Inpatient Evaluation/Re-Eval M1 PT/OT-IP Prior Functional Status Start: 12/25/21 08:40 Freq: NEEDED Status: Active Protocol: Document 12/25/21 14:31 AW (Rec: 12/25/21 14:46 AW [id number]) Medical Review Prior Functional Status Medical History Reviewed Yes Communication Pt is able to make her needs known Mobility and Gait Pt uses a 4WW for all mobility including short community distances but reports her strength has declined significantly in the last 6 weeks. She has been needing help to get out of bed and to the bathroom which is not typical for her. Activities of Daily Living and IADL's Pt typically can manage her own ADL's but she has been too weak recently and needing assist from her spouse. She does not drive. She does manage her own medications. Pt has RA which limits her ability to use equipment for dressing. She has a caregiver from [phone] five days per week to assist with chores. Prior Functional Level (Other details) Pt denies falls in the past one year but relates several instances of injurious falls over the past years resulting in humerus and femur fractures . Social History Household Members spouse Living Arrangements House Number of Floors (Floors) One Floor Number of Stairs To Enter/Railing? Ramped entry Home Environment Standard Height Toilet,Ramp Home Equipment Front Wheel Walker,Four Wheel Walker,Straight Cane,Manual Wheelchair,Bedside Commode, Shower Seat with Backrest,Hand Held Shower,Grab Bars Near Toilet,Grab Bars In Shower Employment Status Retired Additional Social History Comment Pt has a walk-in tub. She lives with her spouse, Rajendra, who is a big, strong briana. M2 OT-IP Current Condition Start: 12/25/21 15:06 Freq: Status: Active Protocol: Document 12/25/21 14:03 [facility] (Rec: 12/25/21 15:21 [facility] [id number]) Occupational Therapy Current Condition Current Condition Evaluation Date 12/25/21 Treatment Diagnosis Intractable nausea/vomitting, decreased activity tolerance Diagnosis Onset Date 12/24/21 M3 OT- IP Subjective and Pain Start: 12/25/21 15:06 Freq: Status: Active Protocol: Document 12/25/21 14:03 [facility] (Rec: 12/25/21 15:21 [facility] [id number]) OT- Subjective Occupational Therapy Visit Type Type Initial Evaluation Visit Start Time 14:03 Visit Stop Time 14:30 Total Visit Minutes 27 Occupational Therapy Visit Comments Patient Comments Pt agreed to try to get up and going to get a EGD later. Patient/Caregiver Goals TO go home. OT Pain Assessment Pain When Pain Assessed At Rest Pain Present Pain Present Denied Pain M4 OT- IP ADL's Start: 12/25/21 15:06 Freq: Status: Active Protocol: Document 12/25/21 14:03 [facility] (Rec: 12/25/21 15:21 [facility] [id number]) OT [id number] Comments OT Self-Feeding Comments Pt NPO due to upcoming EGD. OT ADL-Grooming Comments OT Grooming Comments Not performed. OT ADL-Oral Care Comments Oral Care Comments NOt performed. OT ADL-Dressing General Eval Lower Body Dressing Ability Moderate Assistance,Maximum Assistance Areas Needing Assistance Socks Comments OT Dressing Comments Pt able to flex at her hips to don her left sock and needing assist to masoud left sock at this time. OT ADL-Toileting Comments OT Toileting Comments Pt not having to use the toilet at this time. OT ADL-Bathing Comments OT Bathing Comments Not performed. M5 OT- IP IADL's Start: 12/25/21 15:06 Freq: Status: Active Protocol: Document 12/25/21 14:03 [facility] (Rec: 12/25/21 15:21 [facility] [id number]) OT-Instrumental Activities of Daily Living Home Safety Awareness Awareness of Need for Assistance at Home Good Awareness Ability to Problem Solve Emergency Able to Problem Solve Situations Medication Management Medication Management No Deficits Identified Money Management Money Management Caregiver Provides Assistance Meal Preparation Meal Preparation Caregiver Provides Assist Advanced Nursing Professor Advanced Nursing Professor Caregiver Provides Assist M6 OT- IP Functional Cognition Start: 12/25/21 15:06 Freq: Status: Active Protocol: Document 12/25/21 14:03 [facility] (Rec: 12/25/21 15:21 [facility] [id number]) Cognitive Factors Limiting Selfcare Function Cognitive Ability Level of Alertness Alert Patient Orientation Name,Age,Birthday,Month,Date, Year,Day of Week,Place, Situation Attention Span Ability Capable of Focused Attention, Capable of Sustained Attention Ability to Follow Commands Able to Follow Multi-Step Commands Cognitive Comments Cognitive Assessment Comments Pt appears intact for cognitive needs on OT eval. OT- Vision and Hearing OT- Hearing Assessment OT- Hearing Assessment WFL OT- Vision Assessment Visual Acuity Glasses All The Time M7 OT- IP Mobility and Balance Start: 12/25/21 15:06 Freq: Status: Active Protocol: Document 12/25/21 14:03 [facility] (Rec: 12/25/21 15:21 [facility] [id number]) OT- Bed Mobility Assessment Supine to Sit Supine to Sit Assist Moderate Assistance,1 Person Assistance Sit to Supine Sit to Supine Assist Contact Guard Assistance,1 Person Assistance OT-Transfer Assessment Sit to and From Stand Sit to and from Stand Contact Guard Assistance,1 Person Assistance Comments Mobility Comments Pt CGA to stand to FWW and then feeling a bit woozy and then wanting to get back into bed. OT- Gait Assessment Comments Gait Ability Comments Pt only wanting to stand at this time. OT- Balance Assessment Sitting Balance and Reactions Static Sitting Balance Ability Good Dynamic Sitting Balance Ability Good Standing Balance and Reactions Static Standing Balance Ability Fair M8 OT- IP Objective Assessments Start: 12/25/21 15:06 Freq: Status: Active Protocol: Document 12/25/21 14:03 [facility] (Rec: 12/25/21 15:21 [facility] [id number]) OT Gross Range of Motion Upper Extremity Range of Motion Assessment Bilaterally Impaired OT Strength Comments Strength Comments RUE 4-/5 to 3+/5, LUE 3-/5 to 3+/5 OT- Coordination Assessment Comments Coordination Comments Pt has arthritic changes in her hands and therefore needing assist for set-up for tasks. OT-Muscle Tone Assessment Muscle Tone WNL Yes OT Sensation Assessment Comments Summary Comments Intact M9 OT- IP Assessment and Plan Start: 12/25/21 15:06 Freq: Status: Active Protocol: Document 12/25/21 14:03 [facility] (Rec: 12/25/21 15:21 [facility] [id number]) OT Summary Assessment and Plan Potential Rehabilitation Potential Good Analytic Complexity at Evaluation Moderate Summary OT Impairments Strength,Balance,Functional Mobility,Self-Feeding,Grooming ,Dressing,Toileting,Bathing, Toilet Transfers,Shower Transfers,Activity Tolerance Progress Towards Goals Slow Progress due to Medical Issues,Slow Progress due to Activity Tolerance Assessment Summary Pt MOD complexity and due to weakness and decreased activity tolerance has been needing increased care from her for ADL and mobility needs. Pt to get an EGD today. Pt would benefit from 07/04 assist at home and home health when medically stable. Goals Self-Feeding Goal Standby Assistance Grooming Goal Standby Assistance Dressing Goal Minimal Assistance Toileting Goal Standby Assistance Bathing Goal Minimal Assistance Toilet Transfer Goal Standby Assistance Shower Transfer Goal Standby Assistance Patient/Caregiver Education Goal Demonstrate Energy Conservation and Pacing Days to Meet Goals 7 Frequency of Treatment Frequency Of Treatment Once a Day Treatment Plan OT Treatment Plan ADL Training,Functional Mobility,Patient/Family Education,Discharge Planning Other Treatment Recommendations and Next stand at sink from grooming Treatment Focus needs with FWW Discharge Recommendations OT Discharge Recommendations Home with 24/ Assist Available,Home Health Transportation Needs at Discharge Private Vehicle
--- NOTE | 2021-12-25 14:31 | PT.IIE ---
Surgery Performed Operation Date: 12/25/21 16:00 <No data on this case meets the specified criteria> Medical History (Last Reviewed 12/24/21 @ 15:38 by Anil Quiroz DO) GERD (gastroesophageal reflux disease) Peripheral edema Rheumatoid arthritis Physical Therapy Inpatient Evaluation/Re-Eval M1 PT/OT-IP Prior Functional Status Start: 12/25/21 08:40 Freq: NEEDED Status: Active Protocol: Document 12/25/21 14:31 AW (Rec: 12/25/21 14:46 AW [id number]) Medical Review Prior Functional Status Medical History Reviewed Yes Communication Pt is able to make her needs known Mobility and Gait Pt uses a 4WW for all mobility including short community distances but reports her strength has declined significantly in the last 6 weeks. She has been needing help to get out of bed and to the bathroom which is not typical for her. Activities of Daily Living and IADL's Pt typically can manage her own ADL's but she has been too weak recently and needing assist from her spouse. She does not drive. She does manage her own medications. Pt has RA which limits her ability to use equipment for dressing. She has a caregiver from [phone] five days per week to assist with chores. Prior Functional Level (Other details) Pt denies falls in the past one year but relates several instances of injurious falls over the past years resulting in humerus and femur fractures . Social History Household Members spouse Living Arrangements House Number of Floors (Floors) One Floor Number of Stairs To Enter/Railing? Ramped entry Home Environment Standard Height Toilet,Ramp Home Equipment Front Wheel Walker,Four Wheel Walker,Straight Cane,Manual Wheelchair,Bedside Commode, Shower Seat with Backrest,Hand Held Shower,Grab Bars Near Toilet,Grab Bars In Shower Employment Status Retired Additional Social History Comment Pt has a walk-in tub. She lives with her spouse, Rajendra, who is a big, strong briana. M2 PT-IP Current Condition Start: 12/25/21 08:40 Freq: NEEDED Status: Active Protocol: Document 12/25/21 14:31 AW (Rec: 12/25/21 14:46 AW [id number]) Physical Therapy Current Condition Current Condition Evaluation Date 12/25/21 Treatment Diagnosis nausea and vomiting; generalized weakness; difficulty in walking Onset Date 6 weeks M3 PT-IP Subjective Start: 12/25/21 08:40 Freq: NEEDED Status: Active Protocol: Document 12/25/21 14:31 AW (Rec: 12/25/21 14:46 AW [id number]) Subjective Physical Therapy Visit Type Type Initial Evaluation Visit Start Time 14:05 Visit Stop Time 14:34 Total Visit Minutes 26 Notes Co-tx with OT due to pt's decreased functional reserve. Physical Therapy Visit Comments Patient Comments I thought the surgeon was going to take me to OR soon but I'll get up if you want me to. Patient Goals Pt hopes to return to regular activity with renewed energy. Therapy Pain Assessment Pain When Pain Assessed At Rest Pain Present Pain Present Denied Pain M4 PT-IP Mobility and Gait Start: 12/25/21 08:40 Freq: NEEDED Status: Active Protocol: Document 12/25/21 14:31 AW (Rec: 12/25/21 14:54 AW [id number]) PT-Bed Mobility Assessment Supine to Sit Supine to Sit Contact Guard Assistance Sit to Supine Sit to Supine Contact Guard Assistance Scooting Scooting to Edge of Bed Maximum Assistance Scooting Up and Down in Bed Maximum Assistance PT-Transfer Assessment Sit to and From Stand Sit to and from Stand Contact Guard Assistance, Minimal Assistance,Use of Upper Extremities Equipment Transfer Assistive Device Gait Belt,Front Wheeled Walker Orthotic/Prosthetic Devices or Brace: No Comments Mobility Comments Pt was lying in bed as PT and OT arrived. She was able to sit up on the right side of the bed CGA. Sitting balance was good and pt was able to don one sock but needed assist with the other, reaching forward with very good hip mobility. BP in sitting was 132/103 HR 100 (taken on forearm). Pt reported dizziness but agreed to attempt standing. She stood CGA after being assisted to the edge of the bed. Dizziness did not subside. Pt stood with WBOS and increased external rotation bilateral hips. Pt was instructed to sit EOB. PT provided CGA/min A to elevate her legs to the bed. Pt was left in supine with tray table and call light in reach, bed alarm on for safety . Gait Assessment Comments Gait Comments Pt feeling too weak to walk today. Stair Climbing Assessment Comments Stair Climbing Comments Not assessed. No stairs at home. PT-Balance Assessment Sitting Balance and Reactions Static Sitting Balance Ability Good Dynamic Sitting Balance Ability Fair Standing Balance and Reactions Static Standing Balance Ability Fair Dynamic Standing Balance Ability Fair Device Used FWW M5 PT-IP Objective Assessments Start: 12/25/21 08:40 Freq: NEEDED Status: Active Protocol: Document 12/25/21 14:31 AW (Rec: 12/25/21 14:54 AW [id number]) Orientation Orientation/Cognition Level of Alertness Alert Orientation Name,Day of Week,Place, Situation Language Function Ability No Deficits Noted Safety Awareness Understands Safety Issues Memory Description No Deficits Noted Gross Range of Motion Lower Extremity ROM Assessment Within Functional Limits Strength Lower Extremity Strength Assessment Bilaterally Impaired Hip 3/5 Knee 3+/5 Ankle 4-/5 Sensation Assessment Sensation Gross Sensation WNL Muscle Tone Muscle Tone WNL Yes M6 PT-IP Treatment Start: 12/25/21 08:40 Freq: NEEDED Status: Active Protocol: Document 12/25/21 14:31 AW (Rec: 12/25/21 15:02 AW [id number]) Physical Therapy Treatment Education Education Provided Safety Other Treatments Other Treatment Performed Educated pt on PT plan of care and importance of continued mobility. Recommended use of FWW instead of 4WW at this time for increased stability. M7 PT-IP Assessment and Plan Start: 12/25/21 08:40 Freq: NEEDED Status: Active Protocol: Document 12/25/21 14:31 AW (Rec: 12/25/21 15:02 AW [id number]) PT Summary Assessment and Plan Potential Rehabilitation Potential Good Status of Condition at Evaluation Evolving Summary Impairments Strength,Balance,Bed Mobility, Transfers,Gait,Activity Tolerance Assessment Summary Danny is an 81 yo woman seen for PT evaluation with admitting diagnosis of intractible nausea and vomiting x 6 weeks. She was discharged from this hospital on 12/07/21 with similar complaints. She typically ambulates with 4WW and can manage her ADL's without assist. She presents today with generalized weakness and debility compared with baseline function. PT did not assess gait today due to high diastolic BP and reports of dizziness. Pt will require further assessment for safe discharge plan. She is to undergo EGD later today or tomorrow. Will continue to assess but pt will most likely be safe to go home with assist and home health. Goals Bed Mobility Goal Standby Assistance Transfer Goal Standby Assistance,Front Wheeled Walker Gait Goal Standby Assistance,Front Wheel Walker Gait Distance 200 Other Goals -- improve transfers and gait to SBA with 4WW Frequency of Treatment Frequency Of Treatment Once a Day Treatment Plan Physical Therapy Treatment Plan Bed Mobility Training,Transfer Training,Gait Training, Therapeutic Exercise,Balance Retraining,Discharge Planning, Hot or Cold Pack,Neuromuscular Re-ed Precautions Other Precautions falls Recommendations To Nursing Amount of Assist Needed 1 Person Assist Discharge Recommendations PT Discharge Recommendations Home with 24/ Assist Available,Home Health Transportation Needs at Discharge Private Vehicle
--- NOTE | 2021-12-25 15:06 | PM.CN ---
History of Present Illness Consult details Date Patient Seen: 12/25/21 Chief complaint: Nausea, Vomiting Narrative: 81 year old woman who is admitted with recurrent uncontrolled nausea and vomiting of unknown etiology. EGD is requested for further evaluation. No history of peptic ulcer disease, does not have significant abdominal pain, hematemesis or blood per rectum. Meds Home Medications and Allergies Home Medications Medication Instructions Recorded Confirmed Type omeprazole 40 mg capsule,delayed 40 mg PO DAILY 09/29/18 12/24/21 History release cholecalciferol (vitamin D3) 50 2,000 unit PO DAILY 10/28/19 12/24/21 History mcg (2,000 unit) tablet (Vitamin D3) zoledronic acid 5 mg/100 mL in 5 mg IV PER PKG DIR 10/28/19 12/24/21 History mannitol 5 %-water intravenous piggybck (Reclast) hydrocodone 10 mg-acetaminophen 1 tab PO Q4H PRN #60 tab 11/01/19 12/24/21 Rx 325 mg tablet meclizine 25 mg tablet 25 mg PO DAILY PRN #20 tab 07/27/20 12/24/21 Rx ondansetron 4 mg disintegrating 4 mg PO Q6H PRN #10 tab 11/17/21 12/24/21 Rx tablet gabapentin 800 mg tablet 800 mg PO PRN PRN 12/04/21 12/24/21 History metoclopramide HCl 10 mg tablet 10 mg PO Q6H PRN 30 Days #30 tab 12/07/21 12/24/21 Rx prochlorperazine maleate 5 mg 5 mg PO BID PRN #10 tab 12/10/21 12/24/21 Rx tablet (Compazine) Allergies Allergy/AdvReac Type Severity Reaction Status Date / Time codeine Allergy Verified 12/10/21 10:56 morphine AdvReac Severe Vomiting Verified 12/10/21 10:56 meperidine [MEPERIDINE] AdvReac Unknown VOMITING Verified 12/10/21 10:56 oxycodone [OXYCODONE] AdvReac Unknown NAUSEA Verified 12/10/21 10:56 Exam Vital Signs (past 8 hours): - 12/25/21 07:45 12/25/21 09:29 12/25/21 12:31 Temperature 98.4 F Pulse Rate 130 H Respiratory Rate 14 Blood Pressure 109/77 Pulse Oximetry 94 95 100 Oxygen Delivery Method Room Air Oxygen Flow Rate 0 Narrative Exam Narrative: Gen-Thin elderly woman Chest-non labored resp Abdomen-Soft non distended Ext-WWP Objective Labs Result Diagrams: 12/24/21 07:20 12/25/21 04:25 Labs: Laboratory Results - last 24 hr 12/25/21 12/25/21 04:25 08:00 Sodium 134 L Potassium 3.4 Chloride 103 Carbon Dioxide 20 L BUN < 2 L Creatinine 0.37 L Estimated GFR > 60.0 BUN/Creatinine Ratio 5.4 L Glucose 53 L Calcium 7.7 L Magnesium 1.3 L Cortisol Response [facility] Medical History GERD (gastroesophageal reflux disease) Peripheral edema Rheumatoid arthritis Surgical History History of hand surgery History of total left knee replacement History of total right knee replacement Status post total hip replacement, left Status post wrist surgery Family History Mother No problems noted. Father No problems noted. Social History household members: spouse Tobacco & Substance Use Smoking Status: Never smoker alcohol intake: current Assessment & Plan Assessment and plan (1) Nausea: Status: Acute Assessment & Plan narrative: 81 y.o woman with refractory nausea here for EGD. Technical details of the procedure were discussed. Procedural risks including bleeding, missed diagnosis, intestinal perforation and anesthetic complicaitons were discussed. Her questions have been answered and she is in agreement with this plan. Time Spent With Patient Critical Care time: I spent a total of [] minutes of critical care time on this patient's care today; this time is exclusive of procedural time.
[2021-12-25] MEDS: LACTATED RINGERS 1,000 ML 42 ML IV (15:19)
[2021-12-25] MEDS: MIDAZOLAM 5 MG/5 ML VIAL IV (15:49)
[2021-12-25] MEDS: fentaNYL 250 MCG/5 ML INJ IV (15:49)
--- NOTE | 2021-12-25 16:11 | P.OP.COLON_ITS ---
Operative Date/Time/Diagnoses Date of procedure: 12/25/21 Time of procedure: 16:11 Pre-op diagnosis: Intractable nausea Post-op diagnosis: same Procedure & Clinicians Study performed: Esophagoduodenoscopy Same procedure as scheduled: Yes Indications: Intractable nausea Surgeon: Tony Early Procedure Notes Procedure in detail: Patient placed in left lateral decubitus position. Time out was performed. Procedural sedation was administered with Versed and Fentanyl. The scope was inserted into the mouth and advanced through the esophagus and into the stomach. The pylorus was intubated and the duodenum was normal to the 2nd portion. The s cope was retroflexed within the stomach and there was a small hiatal hernia. Mucosa of the stomach was fairly unremarkable there was no evidence of significant gastritis or ulcer. Multiple biopsies of the stomach were taken with the forceps. The scope was withdrawn into the esophagus the Z line was seen at 35 cm from the incisions. There was no Giordano's esophagitis or masses or strictures. Stomach was desufflated and scope removed. Patient tolerated procedure well. Specimen(s): other (Gastric) Complications: none Impression: Normal esophagoduodenoscopy Post-procedure Plan for aftercare: Return to [facility] for further care. Will notify with pathology Disposition: Acute Care
--- NOTE | 2021-12-25 16:26 | SUR.PHASEI ---
Report to Beatriz IRVING
[2021-12-26] VITALS (10 sets, daily range): BP systolic 109–112; BP diastolic 63–78; PULSE 89–94; RESP 16–18; TEMP 36.8; O2SAT 93–97
[2021-12-26] MEDS: SODIUM CHLORIDE 0.9% 1,000 ML 100 ML IV (01:52)
[2021-12-26] MEDS: HYDROCODONE/ACET 10/325 TABLET 1 TAB PO ×3 (02:07→20:39)
[2021-12-26 05:05] LABS: Calcium 7.8 mg/dL (8.4-10.2); Carbon Dioxide 24 mmol/L (22-32); Chloride 105 mmol/L (98-107); Estimated Glomerular Filt Rate > 60 mL/min (>60); Glucose 94 mg/dL (80-110); HEMOLYSIS < 15 (0-50); Magnesium 1.7 mg/dL (1.6-2.3); Potassium 3.5 mmol/L (3.4-5.1); Sodium 135 mmol/L (137-145)
[2021-12-26 05:06] LABS: BUN Creatinine Ratio 5.3 (6-22); Blood Urea Nitrogen < 2 mg/dL (7-17)
[2021-12-26] MEDS: PANTOPRAZOLE DR 40 MG TABLET PO (06:53)
[2021-12-26] MEDS: MAGNESIUM OXIDE 400 MG TABLET PO (09:26)
[2021-12-26] MEDS: ENOXAPARIN 40 MG/0.4 ML SYRINGE SUBCUT (09:26)
[2021-12-26] MEDS: CHOLECALCIFEROL (VITAMIN D3) 1,000 UNIT TABLET 2000 UNIT PO (09:27)
--- NOTE | 2021-12-26 11:33 | PT.IPTN ---
Current Diagnoses Nausea (12/24/21) Surgery Performed Operation Date: 12/25/21 16:00 Actual Procedures p Esophagogastroduodenoscopy with biopsy - Tony Early MD Physical Therapy Treatment Note M2 PT-IP Current Condition Start: 12/25/21 08:40 Freq: NEEDED Status: Active Protocol: Document 12/26/21 11:05 SP (Rec: 12/26/21 14:35 SP [id number]) Physical Therapy Current Condition Current Condition Evaluation Date 12/25/21 Treatment Diagnosis nausea and vomiting; generalized weakness; difficulty in walking Onset Date 6 weeks M3 PT-IP Subjective Start: 12/25/21 08:40 Freq: NEEDED Status: Active Protocol: Document 12/26/21 11:05 SP (Rec: 12/26/21 14:35 SP [id number]) Subjective Physical Therapy Visit Type Type Treatment Note Visit Start Time 11:05 Visit Stop Time 11:33 Total Visit Minutes 28 Notes Nurse assisted with 2nd person during STS from BSC (VERIFY REP lowered BSC height- misjudged pt height in bed supine, unable STS from low surface) Vitals taken during tx: supine: BP 128/ 85 HR 93, SaO2 98% on RA seated: 101/ 81 HR 113 post mobility: Number of VERIFY REP Visits 1 Physical Therapy Visit Comments Patient Comments I want to learn how to use the BSC, don't want to use the bed womack anymore, hurts my bottom. Patient Goals Return home with to assist her. Therapy Pain Assessment Pain When Pain Assessed At Rest Pain Present Pain Present Denied Pain M4 PT-IP Mobility and Gait Start: 12/25/21 08:40 Freq: NEEDED Status: Active Protocol: Document 12/26/21 11:05 SP (Rec: 12/26/21 14:35 SP [id number]) PT-Bed Mobility Assessment Supine to Sit Supine to Sit Contact Guard Assistance Scooting Scooting to Edge of Bed Minimal Assistance PT-Transfer Assessment Sit to and From Stand Sit to and from Stand Contact Guard Assistance, Minimal Assistance,Use of Upper Extremities Equipment Transfer Assistive Device Gait Belt,Front Wheeled Walker Orthotic/Prosthetic Devices or Brace: No Transfers Transfer Destination Bed,Bedside Commode Transfer Technique Stand Step Pivot Transfer Ability Level of Assist Minimal Assistance,1 Person Assistance,Use of Upper Extremities Comments Mobility Comments Pt completed elevated supine> sit and scoot almost to EOB then needed little support via transfer pad, Sit>stand Min A cues push from bed RUE while LUE on FWW. SPT to BSC w/ FWW self manage, Mod A descent to BSC due to very low for her length LEs. pt able void, VERIFY REP assisted pericare in sit. STS from BSC unable 1 person due to to low (2nd hold from floor ), nurse provided Mod A x2 STS then VERIFY REP provided Min A SPT requested back to bed w/ FWW. Stand>sit> supine Max A for LEs on to bed then Max A x2 to center and scoot up in bed. Pt had call light and all needs in reach before left. VERIFY REP updated communication board Mod A x1-2 w/FWW. VERIFY REP notified nursing unable to alarm bed, blinking. Will continue to assess progress. Gait Assessment Comments Gait Comments SPT only Min- Mod A x1-2 person w/ FWW, is all tolerated this tx. Stair Climbing Assessment Comments Stair Climbing Comments Not assessed. No stairs at home. PT-Balance Assessment Sitting Balance and Reactions Static Sitting Balance Ability Good Dynamic Sitting Balance Ability Fair Standing Balance and Reactions Static Standing Balance Ability Fair Dynamic Standing Balance Ability Fair Device Used FWW M5 PT-IP Objective Assessments Start: 12/25/21 08:40 Freq: NEEDED Status: Active Protocol: Document 12/25/21 14:31 AW (Rec: 12/25/21 14:54 AW [id number]) Orientation Orientation/Cognition Level of Alertness Alert Orientation Name,Day of Week,Place, Situation Language Function Ability No Deficits Noted Safety Awareness Understands Safety Issues Memory Description No Deficits Noted Gross Range of Motion Lower Extremity ROM Assessment Within Functional Limits Strength Lower Extremity Strength Assessment Bilaterally Impaired Hip 3/5 Knee 3+/5 Ankle 4-/5 Sensation Assessment Sensation Gross Sensation WNL Muscle Tone Muscle Tone WNL Yes M6 PT-IP Treatment Start: 12/25/21 08:40 Freq: NEEDED Status: Active Protocol: Document 12/26/21 11:05 SP (Rec: 12/26/21 14:35 SP [id number]) Physical Therapy Treatment Education Education Provided Safety M7 PT-IP Assessment and Plan Start: 12/25/21 08:40 Freq: NEEDED Status: Active Protocol: Document 12/26/21 11:05 SP (Rec: 12/26/21 14:35 SP [id number]) PT Summary Assessment and Plan Potential Rehabilitation Potential Good Status of Condition at Evaluation Evolving Summary Impairments Strength,Balance,Bed Mobility, Transfers,Gait,Activity Tolerance Progress Towards Goals Progressing Toward Goals,Slow Progress due to Pain,Slow Progress due to Activity Tolerance Assessment Summary Pt decreased support required during mobility this tx. Min- Mod A x1-2 using FWW. Will require CGT for safey DC with , need to coordinate. Will continue to assess progress. Pt would benefit from continuted PT inpt and HHPT recommending to progress strength and functional mobility. Goals Bed Mobility Goal Standby Assistance Transfer Goal Standby Assistance,Front Wheeled Walker Gait Goal Standby Assistance,Front Wheel Walker Gait Distance 200 Other Goals -- improve transfers and gait to SBA with 4WW Frequency of Treatment Frequency Of Treatment Once a Day Treatment Plan Physical Therapy Treatment Plan Bed Mobility Training,Transfer Training,Gait Training, Therapeutic Exercise,Balance Retraining,Discharge Planning, Hot or Cold Pack,Neuromuscular Re-ed Other Recommendations and Next Treatment bed mob, transfers, gait w/FWW Focus , LE ex Precautions Other Precautions falls Recommendations To Nursing Amount of Assist Needed 1 Person Assist Discharge Recommendations PT Discharge Recommendations Home with 07/04 Assist Available,Home Health Transportation Needs at Discharge Private Vehicle
--- NOTE | 2021-12-26 12:02 | P.PN_ITS ---
Subjective Subjective Interval history: Patient reports continued n/v. She denies any bloody emesis. She endorses passing flatus. Denies having BM here, secondary to low PO intake. She reports taking a suppository at home, too, that helps with her n/v, but does not recall the name. She will attempt to find out today, too. Prednisone 10 mg daily and weekly methotrexate for her RA were discontinued by PCP approx 3 [address] ago[address] un[address]. CT abd/pelvis showed possible ileus, non-obstructive. Exam Vital Signs (past 8 hours): - 12/26/21 06:00 12/26/21 07:20 12/26/21 07:33 Temperature 98.3 F Pulse Rate 94 H Respiratory Rate 16 Blood Pressure 112/78 Pulse Oximetry 93 97 93 12/26/21 10:00 Temperature Pulse Rate Respiratory Rate Blood Pressure Pulse Oximetry 95 Oxygen Delivery Method Room Air Oxygen Flow Rate 0 Const Other: Patient laying in bed upon my entering the room, holding her abdomen lightly, appears in mild distress, and does not appear toxically ill Eyes Other: No scleral icterus appreciated Resp Other: Lungs clear to auscultation bilaterally Cardio Other: RRR, S1 and S2 heart sounds normal, no extra heart sounds or murmurs appreciated GI Other: Soft, non-distended, tender to palpation throughout, bowel sounds present Skin Other: No grossly abnormal skin lesions noted Extrem Other: Ulnar deviation of bilateral MCP's appreciated, no peripheral edema, palpable bilateral dorsalis pedis pulses Objective Labs Result Diagrams: 12/24/21 07:20 12/26/21 04:08 Labs: Laboratory Results - last 24 hr 12/26/21 04:08 Sodium 135 L Potassium 3.5 Chloride 105 Carbon Dioxide 24 BUN < 2 L Creatinine 0.38 L Estimated GFR > 60 BUN/Creatinine Ratio 5.3 L Glucose 94 Calcium 7.8 L Magnesium 1.7 PFSH Medical History GERD (gastroesophageal reflux disease) Peripheral edema Rheumatoid arthritis Surgical History History of hand surgery History of total left knee replacement History of total right knee replacement Status post total hip replacement, left Status post wrist surgery Family History Mother No problems noted. Father No problems noted. Social History household members: spouse Smoking Status: Never smoker alcohol intake: current Assessment & Plan Assessment & Plan narrative: Ms. Mariely Man is a 77-year-old female with a past medical history significant for rheumatoid arthritis on methotrexate and prednisone, gastroesophageal reflux, intermittent nausea who presents with 3 weeks of pe rsistent nausea and vomiting and inability to tolerate much oral intake. 1. Intractable nausea and vomiting ?- Unclear etiology as of now, given unremarkable EGD, CT abd/pelvis, cortisol stimulation test, or sources of infection UA negative? ?- IV Zofran and Reglan appear to help, along with an anti-emetic suppository, for which patient cannot recall name? - If no other etiology found, it is possible that RA connective tissue disease is slowing intestinal motility 2. Mild ileus, likely due to chronic opiate use ?- Patient reports taking oxycodone 10 mg every 6 hours at home, for RA pain, for years ?- Continues to take these doses at home without reported difficulty, unlikely narcotic bowel syndrome 3. Rheumatoid arthritis, chronic, stable ?- Chronic prednisone 10 mg daily and weekly methotrexate stopped by PCP 3 weeks ago ?- Cosyntropin test inpatient unremarkable ?- On chronic opiate therapy to help with pain ?- Will resume prednisone 40 mg daily for a few days inpatient, and assess whether that helps with presenting issue 4. Gastroesophageal reflux disorder, chronic, stable ?- Continue Protonix 40 mg bid 5. Hypomagnesemia, acute, improving ?- Likely due to decreased PO intake, replenish with magnesium oxide ?- The magnesium oxide might help with intestinal mobility, too 6. Episodes of SVT, likely related to low magnesium, resolved ?- Reported episodes that self-resolve, will continue on telemetry for now VTE prophylaxis: Lovenox 40 mg daily Code: Full code Proxy: I have utilized all available immediate resources to obtain, update, or review the patient's current medications. Time Spent With Patient Critical Care time: I spent a total of [] minutes of critical care time on this patient's care today; this time is exclusive of procedural time. Quality MIPS - Admit I confirm the patient?s Advance Care Plan is present, Code status is documented, Surrogate decision maker is in patient?s record [If Yes, STOP here]: Yes
[2021-12-26] MEDS: CALCIUM GLUCONATE 4.65 MEQ in SODIUM CHLORIDE 0.9% 50 ML 180 ML IV (12:23)
--- NOTE | 2021-12-26 12:34 | CM.IDA ---
Initial DCP Assessment Note Patient is an 81 yo female, resident of [facility], Pt admitted observation for persistent N/V, h/o RA, hx falls and multiple orthopedic surgeries. PCP: Dr Ady Zapata: DELIO/[facility] Met w/pt at bedside this morning, explained role. Pt admits she has relied on her for support for many years d/t her severe RA and multiple hospitalizations and Orthopedic procedures. Pt feels confident about her return home w/spouse to assist. Patient has her cg Angelia, who has been working for her for approx year and a half, works 5 days pr weeke 9-2. Patient expects to return home w/assist from spouse and cg upon DC. States she will not go to SNF; hx of [facility] and [facility] Discussed home health services, patient declines, states she does not feel she will need them. No needs expected from this [facility] , however, following closely in case DC needs or concerns arise. MONIQUE Jim Discharge Planning/Care Management CM Discharge Assessment Start: 12/26/21 11:55 Freq: Status: Active Protocol: Document 12/26/21 11:55 JAYME (Rec: 12/26/21 12:34 JAYME [id number]) Discharge Planning Assessment Assigned Jig Filler MONIQUE Park DPOA/Assigned Designee Name Rajendra Man, spouse Contact Information [phone] Advance Directives? Yes Advance Directives on File No History Provided By Patient,Medical Record Prior Living Arrangements House Household Members spouse Type of transporation used prior to Relies on Others admit Independent with ADL's Yes: 4WW for all mobility, hx of falls and multiple fx Is patient alert and oriented? Yes Comment According to therapy notes, patient had been completing most ADLs independently until approx 6 weeks ago. Comment Patient tells this [facility] that she doesn't need HH at this time Barriers to Discharge No Comment Patient plans to return home w /spouse and cg Angelia to assist Discharge Plan Home Transportation Arrangement Family Referrals Initiated None needed
[2021-12-26] MEDS: predniSONE 20 MG TABLET 40 MG PO (12:35)
--- NOTE | 2021-12-26 14:09 | OT.IP.TRT ---
Current Diagnoses Nausea (12/24/21) Surgery Performed Operation Date: 12/25/21 16:00 Actual Procedures p Esophagogastroduodenoscopy with biopsy - Tony Early MD Occupational Therapy Treatment Note M2 OT-IP Current Condition Start: 12/25/21 15:06 Freq: Status: Active Protocol: Document 12/25/21 14:03 [facility] (Rec: 12/25/21 15:21 [facility] [id number]) Occupational Therapy Current Condition Current Condition Evaluation Date 12/25/21 Treatment Diagnosis Intractable nausea/vomiting, decreased activity tolerance Diagnosis Onset Date 12/24/21 M3 OT- IP Subjective and Pain Start: 12/25/21 15:06 Freq: Status: Active Protocol: Document 12/26/21 14:28 [facility] (Rec: 12/26/21 14:37 [facility] [id number]) OT- Subjective Occupational Therapy Visit Type Type Treatment Note Visit Start Time 13:55 Visit Stop Time 14:09 Total Visit Minutes 14 Occupational Therapy Visit Comments Patient Comments Pt sitting on the commode and wanting to get back to the bed . Patient/Caregiver Goals TO go home. OT Pain Assessment Pain When Pain Assessed At Rest Pain Present Pain Present Denied Pain M4 OT- IP ADL's Start: 12/25/21 15:06 Freq: Status: Active Protocol: Document 12/26/21 14:28 [facility] (Rec: 12/26/21 14:37 [facility] [id number]) OT ADL-Toileting General Evaluation Toileting Ability Maximum Assistance Areas Needing Assistance Perform Perineal Hygiene Comments OT Toileting Comments Pt not able to stand on her own at this time. Pt not able to reach to wipe as tends to bend forwards to reach and not able to reach appropriately while seated on the commode. Therefore MAX A x1 to stand to FWW while nursing aid assisted to wipe. Able to increase the height of the BSC to increase transfer and mobility needs. M5 OT- IP IADL's Start: 12/25/21 15:06 Freq: Status: Active Protocol: Document 12/25/21 14:03 [facility] (Rec: 12/25/21 15:21 [facility] [id number]) OT-Instrumental Activities of Daily Living Home Safety Awareness Awareness of Need for Assistance at Home Good Awareness Ability to Problem Solve Emergency Able to Problem Solve Situations Medication Management Medication Management No Deficits Identified Money Management Money Management Caregiver Provides Assistance Meal Preparation Meal Preparation Caregiver Provides Assist Internal Medicine Nurse Practitioner Internal Medicine Nurse Practitioner Caregiver Provides Assist M6 OT- IP Functional Cognition Start: 12/25/21 15:06 Freq: Status: Active Protocol: Document 12/25/21 14:03 [facility] (Rec: 12/25/21 15:21 [facility] [id number]) Cognitive Factors Limiting Selfcare Function Cognitive Ability Level of Alertness Alert Patient Orientation Name,Age,Birthday,Month,Date, Year,Day of Week,Place, Situation Attention Span Ability Capable of Focused Attention, Capable of Sustained Attention Ability to Follow Commands Able to Follow Multi-Step Commands Cognitive Comments Cognitive Assessment Comments Pt appears intact for cognitive needs on OT eval. OT- Vision and Hearing OT- Hearing Assessment OT- Hearing Assessment WFL OT- Vision Assessment Visual Acuity Glasses All The Time M7 OT- IP Mobility and Balance Start: 12/25/21 15:06 Freq: Status: Active Protocol: Document 12/26/21 14:28 [facility] (Rec: 12/26/21 14:37 [facility] [id number]) OT-Transfer Assessment Sit to and From Stand Sit to and from Stand Maximum Assistance Transfers Transfer Ability Contact Guard Assistance Technique Transfer Destination Bed,Bedside Commode Comments Mobility Comments MAX to stand from lower surface and CGA with FWW to transfer back to the bed. Pt able to get back into bed on her own with HOB up and needing two person assist to slide her up in the bed. OT- Balance Assessment Sitting Balance and Reactions Static Sitting Balance Ability Good Dynamic Sitting Balance Ability Good Standing Balance and Reactions Static Standing Balance Ability Fair M8 OT- IP Objective Assessments Start: 12/25/21 15:06 Freq: Status: Active Protocol: Document 12/25/21 14:03 [facility] (Rec: 12/25/21 15:21 [facility] [id number]) OT Gross Range of Motion Upper Extremity Range of Motion Assessment Bilaterally Impaired OT Strength Comments Strength Comments RUE 4-/5 to 3+/5, LUE 3-/5 to 3+/5 OT- Coordination Assessment Comments Coordination Comments Pt has arthritic changes in her hands and therefore needing assist for set-up for tasks. OT-Muscle Tone Assessment Muscle Tone WNL Yes OT Sensation Assessment Comments Summary Comments Intact M9 OT- IP Assessment and Plan Start: 12/25/21 15:06 Freq: Status: Active Protocol: Document 12/26/21 14:28 [facility] (Rec: 12/26/21 14:37 [facility] [id number]) OT Summary Assessment and Plan Potential Rehabilitation Potential Good Analytic Complexity at Evaluation Moderate Summary OT Impairments Strength,Balance,Functional Mobility,Self-Feeding,Grooming ,Dressing,Toileting,Bathing, Toilet Transfers,Shower Transfers,Activity Tolerance Progress Towards Goals Progressing Toward Goals Assessment Summary Pt able tolerated transfer to the bed from [facility] and states feel like she is better overall as not vomiting anymore but feels weak. Pt adamant that he has caregiver and to assist with all her needs and not wanting any home health. Pt would benefit from home health for activity tolerance needs. Goals Self-Feeding Goal Standby Assistance Grooming Goal Standby Assistance Dressing Goal Minimal Assistance Toileting Goal Standby Assistance Bathing Goal Minimal Assistance Toilet Transfer Goal Standby Assistance Shower Transfer Goal Standby Assistance Patient/Caregiver Education Goal Demonstrate Post-Op Precautions Days to Meet Goals 6 Frequency of Treatment Frequency Of Treatment Once a Day Treatment Plan OT Treatment Plan ADL Training,Functional Mobility,Patient/Family Education,Discharge Planning Other Treatment Recommendations and Next shower versus sponge bath Treatment Focus Discharge Recommendations OT Discharge Recommendations Home with 07/04 Assist Available,Home Health Transportation Needs at Discharge Private Vehicle
[2021-12-26] MEDS: METOCLOPRAMIDE 10 MG/2 ML INJ 5 MG IV (15:52)
--- NOTE | 2021-12-26 16:42 | PC.NURSE ---
Pt w/o N/V this shift. SpO2 95% RA Med at 1600 w/[place] for discomfort in back & left shoulder w/good relief. Pt 1PA to pivot to BSC. SL R wrist intact/patent. IVF NS @ 100 infusing via pump into the right hand site w/o incidence. Call light w/in reach, bed alarm on for pt safety. Continue w/plan of care.
[2021-12-26] MEDS: PANTOPRAZOLE 40 MG VIAL IV (20:35)
[2021-12-27] VITALS (11 sets, daily range): BP systolic 120–130; BP diastolic 69–81; PULSE 90–94; RESP 18; TEMP 36.5–36.9; O2SAT 93–98
[2021-12-27 04:52] LABS: Calcium 7.7 mg/dL (8.4-10.2); Carbon Dioxide 24 mmol/L (22-32); Chloride 105 mmol/L (98-107); Estimated Glomerular Filt Rate > 60 mL/min (>60); Glucose 154 mg/dL (80-110); HEMOLYSIS < 15 (0-50); Magnesium 1.6 mg/dL (1.6-2.3); Potassium 3.3 mmol/L (3.4-5.1); Sodium 137 mmol/L (137-145)
[2021-12-27 04:54] LABS: BUN Creatinine Ratio 5.3 (6-22); Blood Urea Nitrogen 2 mg/dL (7-17)
[2021-12-27] MEDS: METOCLOPRAMIDE 10 MG/2 ML INJ 5 MG IV ×3 (07:55→16:49)
[2021-12-27] MEDS: SODIUM CHLORIDE 0.9% 1,000 ML 100 ML IV (07:55)
[2021-12-27] MEDS: predniSONE 20 MG TABLET 40 MG PO (08:32)
[2021-12-27] MEDS: CHOLECALCIFEROL (VITAMIN D3) 1,000 UNIT TABLET 2000 UNIT PO (08:32)
[2021-12-27] MEDS: ENOXAPARIN 40 MG/0.4 ML SYRINGE SUBCUT (08:32)
[2021-12-27] MEDS: MAGNESIUM OXIDE 400 MG TABLET PO (08:32)
[2021-12-27] MEDS: PANTOPRAZOLE 40 MG VIAL IV ×2 (08:33→20:40)
[2021-12-27] MEDS: POTASSIUM CHLORIDE 20 MEQ TAB 40 MEQ PO (10:00)
--- NOTE | 2021-12-27 11:15 | OT.IP.TRT ---
Current Diagnoses Nausea (12/24/21) Surgery Performed Operation Date: 12/25/21 16:00 Actual Procedures p Esophagogastroduodenoscopy with biopsy - Tony Early MD Occupational Therapy Treatment Note M2 OT-IP Current Condition Start: 12/25/21 15:06 Freq: Status: Active Protocol: Document 12/25/21 14:03 [facility] (Rec: 12/25/21 15:21 [facility] [id number]) Occupational Therapy Current Condition Current Condition Evaluation Date 12/25/21 Treatment Diagnosis Intractable nausea/vomiting, decreased activity tolerance Diagnosis Onset Date 12/24/21 M3 OT- IP Subjective and Pain Start: 12/25/21 15:06 Freq: Status: Active Protocol: Document 12/27/21 12:35 [facility] (Rec: 12/27/21 12:42 [facility] [id number]) OT- Subjective Occupational Therapy Visit Type Type Treatment Note Visit Start Time 11:00 Visit Stop Time 11:15 Total Visit Minutes 15 Occupational Therapy Visit Comments Patient Comments Pt not wanting to get up at this time but agree to go over energy conservation suggestions. Patient/Caregiver Goals TO go home. OT Pain Assessment Pain When Pain Assessed At Rest Pain Present Pain Present Denied Pain M4 OT- IP ADL's Start: 12/25/21 15:06 Freq: Status: Active Protocol: Document 12/27/21 12:35 [facility] (Rec: 12/27/21 12:42 [facility] [id number]) OT [id number] Comments OT Self-Feeding Comments Called the kitchen invorder for pt to get large handles light weight utensils to use. Pt also given a foam supervisor metal hanging to use to increased ease to hold objects due to her RA. OT ADL-Dressing Comments OT Dressing Comments Went over energy conservation strategies for ADl and mobility needs. OT ADL-Bathing Comments OT Bathing Comments Pt states not wanting to shower and would rather go home with her caregiver to assist her to her walk in tub. M5 OT- IP IADL's Start: 12/25/21 15:06 Freq: Status: Active Protocol: Document 12/25/21 14:03 [facility] (Rec: 12/25/21 15:21 [facility] [id number]) OT-Instrumental Activities of Daily Living Home Safety Awareness Awareness of Need for Assistance at Home Good Awareness Ability to Problem Solve Emergency Able to Problem Solve Situations Medication Management Medication Management No Deficits Identified Money Management Money Management Caregiver Provides Assistance Meal Preparation Meal Preparation Caregiver Provides Assist Director College Director College Caregiver Provides Assist M6 OT- IP Functional Cognition Start: 12/25/21 15:06 Freq: Status: Active Protocol: Document 12/25/21 14:03 [facility] (Rec: 12/25/21 15:21 [facility] [id number]) Cognitive Factors Limiting Selfcare Function Cognitive Ability Level of Alertness Alert Patient Orientation Name,Age,Birthday,Month,Date, Year,Day of Week,Place, Situation Attention Span Ability Capable of Focused Attention, Capable of Sustained Attention Ability to Follow Commands Able to Follow Multi-Step Commands Cognitive Comments Cognitive Assessment Comments Pt appears intact for cognitive needs on OT eval. OT- Vision and Hearing OT- Hearing Assessment OT- Hearing Assessment WFL OT- Vision Assessment Visual Acuity Glasses All The Time M8 OT- IP Objective Assessments Start: 12/25/21 15:06 Freq: Status: Active Protocol: Document 12/25/21 14:03 [facility] (Rec: 12/25/21 15:21 [facility] [id number]) OT Gross Range of Motion Upper Extremity Range of Motion Assessment Bilaterally Impaired OT Strength Comments Strength Comments RUE 4-/5 to 3+/5, LUE 3-/5 to 3+/5 OT- Coordination Assessment Comments Coordination Comments Pt has arthritic changes in her hands and therefore needing assist for set-up for tasks. OT-Muscle Tone Assessment Muscle Tone WNL Yes OT Sensation Assessment Comments Summary Comments Intact M9 OT- IP Assessment and Plan Start: 12/25/21 15:06 Freq: Status: Active Protocol: Document 12/27/21 12:35 [facility] (Rec: 12/27/21 12:42 [facility] [id number]) OT Summary Assessment and Plan Potential Rehabilitation Potential Good Analytic Complexity at Evaluation Moderate Summary OT Impairments Strength,Balance,Functional Mobility,Self-Feeding,Grooming ,Dressing,Toileting,Bathing, Toilet Transfers,Shower Transfers,Activity Tolerance Assessment Summary Pt not wanting to get up at this time and not concerned about her ADL needs as she has a caregiver and to assist. Able to go over energy conservation needs with pt and requested large handled light weight utensils for the pt from the kitchen. Pt to go home with 24/7 assist. Goals Self-Feeding Goal Standby Assistance Grooming Goal Standby Assistance Dressing Goal Minimal Assistance Toileting Goal Standby Assistance Bathing Goal Minimal Assistance Toilet Transfer Goal Standby Assistance Shower Transfer Goal Standby Assistance Patient/Caregiver Education Goal Demonstrate Post-Op Precautions Days to Meet Goals 5 Frequency of Treatment Frequency Of Treatment Once a Day Treatment Plan OT Treatment Plan ADL Training,Functional Mobility,Patient/Family Education,Discharge Planning Other Treatment Recommendations and Next shower versus sponge bath Treatment Focus Discharge Recommendations OT Discharge Recommendations Home with 24/7 Assist Available,Home Health Transportation Needs at Discharge Private Vehicle
--- NOTE | 2021-12-27 11:19 | PT-IP ANOTE ---
Pt refusing therapy this morning, requests to be seen after lunch. Will check back in PM.
--- NOTE | 2021-12-27 13:03 | PM.PN.1 ---
Subjective Subjective Interval history: The patient endorses another episode of emesis this morning, with food stuff in it. She endorses continued, intermittent nausea, although it's better than time of admission. She is able to keep down some clear liquids. She endorses passing flatus. Exam Vital Signs (past 8 hours): - 12/27/21 06:00 12/27/21 07:27 12/27/21 08:00 Temperature 98.4 F Pulse Rate 94 H Respiratory Rate 18 Blood Pressure 130/69 Pulse Oximetry 96 96 93 12/27/21 10:00 12/27/21 10:51 Temperature Pulse Rate Respiratory Rate Blood Pressure Pulse Oximetry 97 95 Oxygen Delivery Method Room Air Oxygen Flow Rate 0 Narrative Exam Narrative: Const Other: Patient laying in bed upon my entering the room, holding her abdomen lightly, appears in mild distress, and does not appear toxically ill Eyes Other: No scleral icterus appreciated Resp Other: Lungs clear to auscultation bilaterally Cardio Other: RRR, S1 and S2 heart sounds normal, no extra heart sounds or murmurs appreciated GI Other: Soft, non-distended, tender to palpation throughout, bowel sounds present Skin Other: No grossly abnormal skin lesions noted Extrem Other: Ulnar deviation of bilateral MCP's appreciated, no peripheral edema, palpable bilateral dorsalis pedis pulses Objective Labs Result Diagrams: 12/24/21 07:20 12/27/21 04:00 Labs: Laboratory Results - last 24 hr 12/27/21 04:00 Sodium 137 Potassium 3.3 L Chloride 105 Carbon Dioxide 24 BUN 2 L Creatinine 0.38 L Estimated GFR > 60 BUN/Creatinine Ratio 5.3 L Glucose 154 H Calcium 7.7 L Magnesium 1.6 PFSH Medical History GERD (gastroesophageal reflux disease) Peripheral edema Rheumatoid arthritis Surgical History History of hand surgery History of total left knee replacement History of total right knee replacement Status post total hip replacement, left Status post wrist surgery Family History Mother No problems noted. Father No problems noted. Social History household members: spouse Smoking Status: Never smoker alcohol intake: current Assessment & Plan Assessment & Plan narrative: Ms. Mariely Man is a 77-year-old female with a past medical history significant for rheumatoid arthritis on methotrexate and prednisone, gastroesophageal reflux, intermittent nausea who presents with 3 weeks of persistent nausea and vomiting and inability to tolerate much oral intake. 1. Intractable nausea and vomiting ?- Unclear etiology as of now, given unremarkable EGD, CT abd/pelvis, cortisol stimulation test, or sources of infection UA negative? ?- IV Zofran and Reglan appear to help, along with an anti-emetic suppository, for which patient cannot recall name? ?- If no other etiology found, it is possible that RA connective tissue disease is slowing intestinal motility 2. Mild ileus, likely due to chronic opiate use ?- Patient reports taking oxycodone 10 mg every 6 hours at home, for RA pain, for years ?- Continues to take these doses at home without reported difficulty, unlikely narcotic bowel syndrome 3. Rheumatoid arthritis, chronic, stable ?- Chronic prednisone 10 mg daily and weekly methotrexate stopped by PCP 3 weeks ago ?- Cosyntropin test inpatient unremarkable ?- On chronic opiate therapy to help with pain ?- Will resume prednisone 40 mg daily for a few days inpatient, and assess whether that helps with presenting issue 4. Gastroesophageal reflux disorder, chronic, stable ?- Continue Protonix 40 mg bid 5. Hypomagnesemia, acute, improving ?- Likely due to decreased PO intake, replenish with magnesium oxide ?- The magnesium oxide might help with intestinal mobility, too 6. Episodes of SVT, likely related to low magnesium, resolved ?- Reported episodes that self-resolve, will continue on telemetry for now VTE prophylaxis: Lovenox 40 mg daily Time Spent With Patient Critical Care time: I spent a total of [] minutes of critical care time on this patient's care today; this time is exclusive of procedural time.
--- NOTE | 2021-12-27 13:40 | PT.IPTN ---
Current Diagnoses Nausea (12/24/21) Surgery Performed Operation Date: 12/25/21 16:00 Actual Procedures p Esophagogastroduodenoscopy with biopsy - Tony Early MD Physical Therapy Treatment Note M2 PT-IP Current Condition Start: 12/25/21 08:40 Freq: NEEDED Status: Active Protocol: Document 12/26/21 11:05 [facility] (Rec: 12/26/21 14:35 SP [id number]) Physical Therapy Current Condition Current Condition Evaluation Date 12/25/21 Treatment Diagnosis nausea and vomiting; generalized weakness; difficulty in walking Onset Date 6 weeks M3 PT-IP Subjective Start: 12/25/21 08:40 Freq: NEEDED Status: Active Protocol: Document 12/27/21 13:19 [facility] (Rec: 12/27/21 13:50 [facility] [id number]) Subjective Physical Therapy Visit Type Type Treatment Note Visit Start Time 13:19 Visit Stop Time 13:40 Total Visit Minutes 21 Number of COLORED LIQUID PLASTIC APPLIER Visits 2 Physical Therapy Visit Comments Patient Comments Pt request to use BSC. Patient Goals Return home with and caregiver to assist her. M4 PT-IP Mobility and Gait Start: 12/25/21 08:40 Freq: NEEDED Status: Active Protocol: Document 12/27/21 13:19 [facility] (Rec: 12/27/21 13:50 [facility] [id number]) PT-Bed Mobility Assessment Supine to Sit Supine to Sit Contact Guard Assistance Scooting Scooting to Edge of Bed Minimal Assistance PT-Transfer Assessment Sit to and From Stand Sit to and from Stand Contact Guard Assistance, Minimal Assistance,Use of Upper Extremities Equipment Transfer Assistive Device Gait Belt,Front Wheeled Walker Orthotic/Prosthetic Devices or Brace: No Transfers Transfer Destination Chair,Bedside Commode Transfer Technique Pt ambulated w/ FWW Transfer Ability Level of Assist Contact Guard Assistance, Minimal Assistance,1 Person Assistance,Use of Upper Extremities Comments Mobility Comments Pt in bed upon arrival and agreeable to ambulate and use BSC. CGA for sup<>sit w/ HOB slightly elevated and Min A for scooting EOB. Pt sit<> stand CGA/Min A w/ FWW and cues for hand placement. Pt then transferred to BSC, had small bowel movement and then ambulated ~6 ft w/ FWW CGA and reported dizziness and needed to sit down on EOB. BP assessed and 135/97. Pt took 2 min seated rest break and then ambulated ~8 ft from bed to chair w/ FWW CGA/Min A. Pt then performed 1x10 bilateral ankle pumps and glute sets and left in bed w/ all needs in reach. Gait Assessment Gait Gait Assistance Required: Contact Guard Assist,Minimum Assistance,1 Person Assist Distance (Feet) 8 Assistive Devices Assistive Device Gait Belt,Front Wheeled Walker Gait Deviations General Gait Pattern Antalgic,Decreased Stride Length,Decreased Feet Clearance,Flexed Trunk,Lateral Trunk Lean Factors Limiting Gait Function Factors Limiting Gait Function Decreased Activity Tolerance, Decreased Strength,Pain Comments Gait Comments Pt abl to slightly increased ambulation distance w/ FWW today - CGA/Min A for 6 ft and then 8 ft ambulation. Limited by dizziness and high BP 135/ 97. Stair Climbing Assessment Comments Stair Climbing Comments Not assessed. No stairs at home. PT-Balance Assessment Sitting Balance and Reactions Static Sitting Balance Ability Good Dynamic Sitting Balance Ability Fair Standing Balance and Reactions Static Standing Balance Ability Fair Dynamic Standing Balance Ability Fair Device Used FWW M5 PT-IP Objective Assessments Start: 12/25/21 08:40 Freq: NEEDED Status: Active Protocol: Document 12/25/21 14:31 AW (Rec: 12/25/21 14:54 AW [id number]) Orientation Orientation/Cognition Level of Alertness Alert Orientation Name,Day of Week,Place, Situation Language Function Ability No Deficits Noted Safety Awareness Understands Safety Issues Memory Description No Deficits Noted Gross Range of Motion Lower Extremity ROM Assessment Within Functional Limits Strength Lower Extremity Strength Assessment Bilaterally Impaired Hip 3/5 Knee 3+/5 Ankle 4-/5 Sensation Assessment Sensation Gross Sensation WNL Muscle Tone Muscle Tone WNL Yes M6 PT-IP Treatment Start: 12/25/21 08:40 Freq: NEEDED Status: Active Protocol: Document 12/27/21 13:19 [facility] (Rec: 12/27/21 13:50 [facility] [id number]) Physical Therapy Treatment Exercises Exercises Ankle Pumps,Gluteal Sets Education Education Provided Safety M7 PT-IP Assessment and Plan Start: 12/25/21 08:40 Freq: NEEDED Status: Active Protocol: Document 12/27/21 13:19 [facility] (Rec: 12/27/21 13:50 KS [id number]) PT Summary Assessment and Plan Potential Rehabilitation Potential Good Status of Condition at Evaluation Evolving Summary Impairments Strength,Balance,Bed Mobility, Transfers,Gait,Activity Tolerance Progress Towards Goals Progressing Toward Goals,Slow Progress due to Pain,Slow Progress due to Activity Tolerance Assessment Summary Pt CGA to Min A for bed mobility, transfers, and ambulation w/ FWW today. Able to ambulate 6 ft and then 8 ft w/ FWW but limited due to dizziness and high BP of 135/ 97. States she has caregiver at home who can assist as needed. She will benefit from HHPT to improve strength, tolerance for activity, and functional mobility independence. Will continue to progress as tolerated and appropriate. Goals Bed Mobility Goal Standby Assistance Transfer Goal Standby Assistance,Front Wheeled Walker Gait Goal Standby Assistance,Front Wheel Walker Gait Distance 200 Other Goals -- improve transfers and gait to SBA with 4WW Frequency of Treatment Frequency Of Treatment Once a Day Treatment Plan Physical Therapy Treatment Plan Bed Mobility Training,Transfer Training,Gait Training, Therapeutic Exercise,Balance Retraining,Discharge Planning, Hot or Cold Pack,Neuromuscular Re-ed Other Recommendations and Next Treatment bed mob, transfers, gait w/FWW Focus , LE ex Precautions Other Precautions falls, high BP Recommendations To Nursing Amount of Assist Needed 1 Person Assist Discharge Recommendations PT Discharge Recommendations Home with 07/04 Assist Available,Home Health Transportation Needs at Discharge Private Vehicle
--- NOTE | 2021-12-27 14:39 | PC.NURSE ---
Addendum entered by Vicki Anderson R.N. 12/27/21 18:07: IVF stopped at this time per MD orders Original Note: Pt resting at intervals T/O day. SpO2 98% RA IVF infusing @ 100cc/hr via pump into right hand via pump w/o incidence. Sat in chair for while this afternoon. Med x 1 w/ [place] for back pain; fair relief given Condition remains essentially unchanged.. Call light w/in reach, bed alarm on for pt safety. Continue w/plan of care.
[2021-12-27] MEDS: HYDROCODONE/ACET 10/325 TABLET 1 TAB PO ×2 (14:53→20:40)
[2021-12-27] MEDS: POLYVINYL ALCOHOL DROPS 1 DROPS EYE-BOTH (16:50)
[2021-12-28 01:12] VITALS: O2SAT 98
--- NOTE | 2021-12-28 03:08 | PC.NURSE ---
Pt condition unchanged and was asleep most of the shift. Pt reports generalize/back pain at 8 on a 0 to 10 scale. [place] was given at 2040 per pt request. Call light w/in reach and bed alarm on for pt safety.
[2021-12-28] MEDS: HYDROCODONE/ACET 10/325 TABLET 1 TAB PO ×2 (06:27→11:33)
[2021-12-28] MEDS: METOCLOPRAMIDE 10 MG/2 ML INJ 5 MG IV (06:57)
[2021-12-28] MEDS: CHOLECALCIFEROL (VITAMIN D3) 1,000 UNIT TABLET 2000 UNIT PO (09:01)
[2021-12-28] MEDS: predniSONE 20 MG TABLET 40 MG PO (09:01)
[2021-12-28] MEDS: MAGNESIUM OXIDE 400 MG TABLET PO (09:02)
[2021-12-28] MEDS: PANTOPRAZOLE 40 MG VIAL IV (09:02)
[2021-12-28] MEDS: ENOXAPARIN 40 MG/0.4 ML SYRINGE SUBCUT (09:06)
--- NOTE | 2021-12-28 09:08 | PM.PN.1 ---
Subjective Subjective Interval history: The patient reports feeling well this morning. She denies any recurrence of n/v overnight, or throughout the day yesterday. She's been able to keep food down. She believes it's the resumption of home prednisone that's helped her out the most. Exam Vital Signs (past 8 hours): - 12/28/21 01:12 Pulse Oximetry 98 Oxygen Delivery Method Room Air Oxygen Flow Rate 0 Narrative Exam Narrative: Const Other: Patient sitting up in bed upon my entering the room, eating breakfast and talking on the phone, and does not appear in acute distress Eyes Other: No scleral icterus appreciated Resp Other: Lungs clear to auscultation bilaterally Cardio Other: RRR, S1 and S2 heart sounds normal, no extra heart sounds or murmurs appreciated GI Other: Soft, non-distended, tender to palpation throughout, bowel sounds present Skin Other: No grossly abnormal skin lesions noted Extrem Other: Ulnar deviation of bilateral MCP's appreciated, no peripheral edema, palpable bilateral dorsalis pedis pulses Objective Labs Result Diagrams: 12/24/21 07:20 12/27/21 04:00 [facility] Medical History GERD (gastroesophageal reflux disease) Peripheral edema Rheumatoid arthritis Surgical History History of hand surgery History of total left knee replacement History of total right knee replacement Status post total hip replacement, left Status post wrist surgery Family History Mother No problems noted. Father No problems noted. Social History household members: spouse Smoking Status: Never smoker alcohol intake: current Assessment & Plan Assessment & Plan narrative: Ms. Mariely Man is a 77-year-old female with a past medical history significant for rheumatoid arthritis on methotrexate and prednisone, gastroesophageal reflux, intermittent nausea who presents with 3 weeks of persistent nausea and vomiting and inability to tolerate much oral intake. 1. Intractable nausea and vomiting ?- Unclear etiology as of now, given unremarkable EGD, CT abd/pelvis, cortisol stimulation test, or sources of infection UA negative? ?- IV Zofran and Reglan appear to help, along with an anti-emetic suppository, for which patient cannot recall name, likely Phenergan ?- If no other etiology found, it is possible that RA connective tissue disease is slowing intestinal motility 2. Mild ileus, likely due to chronic opiate use ?- Patient reports taking oxycodone 10 mg every 6 hours at home, for RA pain, for years ?- Continues to take these doses at home without reported difficulty, unlikely narcotic bowel syndrome 3. Rheumatoid arthritis, chronic, stable ?- Chronic prednisone 10 mg daily and weekly methotrexate stopped by PCP 3 weeks ago ?- Cosyntropin test inpatient unremarkable ?- On chronic opiate therapy to help with pain ?- Will resume prednisone 40 mg daily for a few days inpatient, and assess whether that helps with presenting issue 4. Gastroesophageal reflux disorder, chronic, stable ?- Continue Protonix 40 mg bid 5. Hypomagnesemia, acute, improving ?- Likely due to decreased PO intake, replenish with magnesium oxide ?- The magnesium oxide might help with intestinal mobility, too 6. Episodes of SVT, likely related to low magnesium, resolved ?- Reported episodes that self-resolve, will continue on telemetry for now VTE prophylaxis: Lovenox 40 mg daily Time Spent With Patient Critical Care time: I spent a total of [] minutes of critical care time on this patient's care today; this time is exclusive of procedural time.
[2021-12-28 09:23] VITALS: BP 111/52; PULSE 84; RESP 18; TEMP 36.6; O2SAT 93
[2021-12-28 10:31] VITALS: O2SAT 97
--- NOTE | 2021-12-28 10:54 | OT.IP.TRT ---
Current Diagnoses Nausea (12/27/21) Surgery Performed Operation Date: 12/25/21 16:00 Actual Procedures p Esophagogastroduodenoscopy with biopsy - Tony Early MD Occupational Therapy Treatment Note M2 OT-IP Current Condition Start: 12/25/21 15:06 Freq: Status: Active Protocol: Document 12/25/21 14:03 [facility] (Rec: 12/25/21 15:21 [facility] [id number]) Occupational Therapy Current Condition Current Condition Evaluation Date 12/25/21 Treatment Diagnosis Intractable nausea/vomiting, decreased activity tolerance Diagnosis Onset Date 12/24/21 M3 OT- IP Subjective and Pain Start: 12/25/21 15:06 Freq: Status: Active Protocol: Document 12/28/21 11:23 [facility] (Rec: 12/28/21 11:31 [facility] [id number]) OT- Subjective Occupational Therapy Visit Type Type Treatment Note Occupational Therapy Visit Comments Patient Comments Pt wanting to use the bathroom and get dressed. Pt's caregiver present for caregiver training. Patient/Caregiver Goals TO go home. OT Pain Assessment Pain When Pain Assessed At Rest Pain Present Pain Present Denied Pain M4 OT- IP ADL's Start: 12/25/21 15:06 Freq: Status: Active Protocol: Document 12/28/21 11:23 [facility] (Rec: 12/28/21 11:31 [facility] [id number]) OT NSA-Jovt-Yrxbctk General Evaluation Self-Feeding Ability Standby Assistance Comments OT Self-Feeding Comments Set-up assist OT ADL-Grooming Comments OT Grooming Comments Not performed. OT ADL-Oral Care Comments Oral Care Comments Not performed. OT ADL-Dressing Comments OT Dressing Comments Pt just wanting her caregiver to assist wit her needs at this time and focused on going home. Able to let nursing know that her heart monitor stickers are still on her chest. Pt insisting to take them off at home. OT ADL-Toileting General Evaluation Toileting Ability Maximum Assistance Areas Needing Assistance Perform Perineal Hygiene Comments OT Toileting Comments Pt's caregiver able to assist pt to stand and wipe at this time with FWW. OT ADL-Bathing Comments OT Bathing Comments Pt wanting to shower at home. M5 OT- IP IADL's Start: 12/25/21 15:06 Freq: Status: Active Protocol: Document 12/25/21 14:03 [facility] (Rec: 12/25/21 15:21 [facility] [id number]) OT-Instrumental Activities of Daily Living Home Safety Awareness Awareness of Need for Assistance at Home Good Awareness Ability to Problem Solve Emergency Able to Problem Solve Situations Medication Management Medication Management No Deficits Identified Money Management Money Management Caregiver Provides Assistance Meal Preparation Meal Preparation Caregiver Provides Assist Tacker Elastic Band Tacker Elastic Band Caregiver Provides Assist M6 OT- IP Functional Cognition Start: 12/25/21 15:06 Freq: Status: Active Protocol: Document 12/28/21 11:23 [facility] (Rec: 12/28/21 11:31 [facility] [id number]) Cognitive Factors Limiting Selfcare Function Cognitive Ability Level of Alertness Alert Cognitive Comments Cognitive Assessment Comments Today pt very insistent on her care and for needs but open to therapy suggestons for safety with use of FWW, gait belt and not to have caregiver assist to hold onto her arm during mobility needs. M7 OT- IP Mobility and Balance Start: 12/25/21 15:06 Freq: Status: Active Protocol: Document 12/28/21 11:23 [facility] (Rec: 12/28/21 11:31 [facility] [id number]) OT- Bed Mobility Assessment Supine to Sit Supine to Sit Assist Minimal Assistance OT-Transfer Assessment Sit to and From Stand Sit to and from Stand Moderate Assistance Transfers Transfer Ability Moderate Assistance Technique Transfer Destination Bed,Bedside Commode,Chair Transfer Technique Stand Step Pivot Comments Mobility Comments OT and DATA WAREHOUSING MANAGER able to go through education of use of gait belt, how to reposition the caregivers hands on the gait belt as needed, how to hold onto the FWW and pt at the same time if needed, especially when pt is feeling weak. Strongly recommended to have the pt do as much as she can. OT- Balance Assessment Sitting Balance and Reactions Static Sitting Balance Ability Good Dynamic Sitting Balance Ability Good Standing Balance and Reactions Static Standing Balance Ability Poor M8 OT- IP Objective Assessments Start: 12/25/21 15:06 Freq: Status: Active Protocol: Document 12/25/21 14:03 [facility] (Rec: 12/25/21 15:21 [facility] [id number]) OT Gross Range of Motion Upper Extremity Range of Motion Assessment Bilaterally Impaired OT Strength Comments Strength Comments RUE 4-/5 to 3+/5, LUE 3-/5 to 3+/5 OT- Coordination Assessment Comments Coordination Comments Pt has arthritic changes in her hands and therefore needing assist for set-up for tasks. OT-Muscle Tone Assessment Muscle Tone WNL Yes OT Sensation Assessment Comments Summary Comments Intact M9 OT- IP Assessment and Plan Start: 12/25/21 15:06 Freq: Status: Active Protocol: Document 12/28/21 11:23 [facility] (Rec: 12/28/21 11:31 [facility] [id number]) OT Summary Assessment and Plan Potential Rehabilitation Potential Good Analytic Complexity at Evaluation Moderate Summary Progress Towards Goals Progressing Toward Goals Assessment Summary Pt's caregiver present for caregiver training for mobility and ADl needs and needing initial safety cues, and demonstration of how to best assist the pt by use of gait belt, FWW, squat pivot to BSC if needed,etc... Strongly educated pt;s caregiver best not to assist pt by support of her right arm to assist to stand. Educated of safe ways to assist pt by use of gait belt or at pt's hips. Pt's caregiver states feel comfortable to be able to assist pt for all needs. Goals Self-Feeding Goal Standby Assistance Grooming Goal Standby Assistance Dressing Goal Minimal Assistance Toileting Goal Standby Assistance Bathing Goal Minimal Assistance Toilet Transfer Goal Standby Assistance Shower Transfer Goal Standby Assistance Patient/Caregiver Education Goal Demonstrate Post-Op Precautions Days to Meet Goals 10 Frequency of Treatment Frequency Of Treatment Once a Day Treatment Plan OT Treatment Plan ADL Training,Functional Mobility,Patient/Family Education,Discharge Planning Discharge Recommendations OT Discharge Recommendations Home with 07/04 Assist Available,Home Health Transportation Needs at Discharge Private Vehicle
--- NOTE | 2021-12-28 10:54 | PT.IPTN ---
Current Diagnoses Nausea (12/27/21) Surgery Performed Operation Date: 12/25/21 16:00 Actual Procedures p Esophagogastroduodenoscopy with biopsy - Tony Early MD Physical Therapy Treatment Note M2 PT-IP Current Condition Start: 12/25/21 08:40 Freq: NEEDED Status: Discharge Protocol: Document 12/28/21 10:27 [facility] (Rec: 12/28/21 15:49 [facility] [id number]) Physical Therapy Current Condition Current Condition Evaluation Date 12/25/21 Treatment Diagnosis nausea and vomiting; generalized weakness; difficulty in walking Onset Date 6 weeks M3 PT-IP Subjective Start: 12/25/21 08:40 Freq: NEEDED Status: Discharge Protocol: Document 12/28/21 10:27 [facility] (Rec: 12/28/21 15:49 SP [id number]) Subjective Physical Therapy Visit Type Type Treatment Note Visit Start Time 10:27 Visit Stop Time 10:54 Total Visit Minutes 27 Notes Caregiver Angelia and OT in room when arrived. Angelia completed caregiver training and provided support required throughout tx. Number of POTATO SEED CUTTER Visits 3 Physical Therapy Visit Comments Patient Comments Pt requested use BSC, get dressed with CG to prepare for DC home. Patient Goals Return home with and caregiver to assist her. Therapy Pain Assessment Pain Present Pain Present Denied Pain M4 PT-IP Mobility and Gait Start: 12/25/21 08:40 Freq: NEEDED Status: Discharge Protocol: Document 12/28/21 10:27 [facility] (Rec: 12/28/21 15:49 SP [id number]) PT-Transfer Assessment Sit to and From Stand Sit to and from Stand Moderate Assistance,1 Person Assistance,Use of Upper Extremities Equipment Transfer Assistive Device Gait Belt,Front Wheeled Walker Orthotic/Prosthetic Devices or Brace: No Transfers Transfer Destination Bed,Chair,Bedside Commode Transfer Technique SPT, Stand Step Pivot w/ FWW Transfer Ability Level of Assist Contact Guard Assistance, Minimal Assistance,1 Person Assistance,Use of Upper Extremities Comments Mobility Comments Pt seated at EOB with OT and Angelia (caregiver) when arrived. POTATO SEED CUTTER educated safety use of gait belt for mobility support at trunk so allows pt use BUE self support. Angelia donned gait belt to pt's trunk. POTATO SEED CUTTER recommended angle BSC closer to pt allow less distance transfer, pt can reach across to opposite side BSC arm rest, pt completed Squat pivot transfer to R to BSC w/Angelia, Mod A, cued support front and back gait belt for safety and able to support anterior knees if needed prevent buckling. Pt able void, pt unable successfully complete pericare sit, CG gave Mod A stand w/ FWW front, provided CGA and able assist pericare in standing. Pt then step pivot back to EOB w/ FWW, Min A. CG assisted pt with dressing. SPT bed> chair w/ FWW, Min A. Pt had call light and all needs in reach before left. POTATO SEED CUTTER recommended HHPT to progress strength and functional mobility with pt and CG in agreement. Gait Assessment Gait Gait Assistance Required: Minimum Assistance,1 Person Assist Distance (Feet) 6 Assistive Devices Assistive Device Gait Belt,Front Wheeled Walker Orthotic/Prosthetic Devices or Brace: No Gait Deviations General Gait Pattern Antalgic,Decreased Stride Length,Decreased Feet Clearance,Flexed Trunk,Lateral Trunk Lean,Step-to Gait Factors Limiting Gait Function Factors Limiting Gait Function Decreased Activity Tolerance, Decreased Strength,Difficulty Following Directions,Pain,Poor Balance,Poor Safety Awareness Comments Gait Comments Pt abl to slightly increased ambulation distance w/ FWW today - CGA/Min A for 6 ft. Stair Climbing Assessment Comments Stair Climbing Comments Not assessed. No stairs at home. ramp entry. PT-Balance Assessment Sitting Balance and Reactions Static Sitting Balance Ability Good Dynamic Sitting Balance Ability Good Standing Balance and Reactions Static Standing Balance Ability Poor Dynamic Standing Balance Ability Fair Device Used FWW M5 PT-IP Objective Assessments Start: 12/25/21 08:40 Freq: NEEDED Status: Discharge Protocol: Document 12/25/21 14:31 [facility] (Rec: 12/25/21 14:54 AW [id number]) Orientation Orientation/Cognition Level of Alertness Alert Orientation Name,Day of Week,Place, Situation Language Function Ability No Deficits Noted Safety Awareness Understands Safety Issues Memory Description No Deficits Noted Gross Range of Motion Lower Extremity ROM Assessment Within Functional Limits Strength Lower Extremity Strength Assessment Bilaterally Impaired Hip 3/5 Knee 3+/5 Ankle 4-/5 Sensation Assessment Sensation Gross Sensation WNL Muscle Tone Muscle Tone WNL Yes M6 PT-IP Treatment Start: 12/25/21 08:40 Freq: NEEDED Status: Discharge Protocol: Document 12/28/21 10:27 [facility] (Rec: 12/28/21 15:49 SP [id number]) Physical Therapy Treatment Education Education Provided Safety M7 PT-IP Assessment and Plan Start: 12/25/21 08:40 Freq: NEEDED Status: Discharge Protocol: Document 12/28/21 10:27 [facility] (Rec: 12/28/21 15:49 SP [id number]) PT Summary Assessment and Plan Potential Rehabilitation Potential Good Status of Condition at Evaluation Evolving Summary Impairments Strength,Balance,Bed Mobility, Transfers,Gait,Activity Tolerance Progress Towards Goals Progressing Toward Goals,Slow Progress due to Pain,Slow Progress due to Activity Tolerance Assessment Summary Pt is CGA- Mod A for transfers using fWW. Pt has caregiver and to assist her 07/04 . HHPT recommended and set up for progress strength and functional mobility. Pt is ok to return home when medically cleared. Goals Bed Mobility Goal Standby Assistance Transfer Goal Standby Assistance,Front Wheeled Walker Gait Goal Standby Assistance,Front Wheel Walker Gait Distance 200 Other Goals -- improve transfers and gait to SBA with 4WW Frequency of Treatment Frequency Of Treatment Once a Day Treatment Plan Physical Therapy Treatment Plan Bed Mobility Training,Transfer Training,Gait Training, Therapeutic Exercise,Balance Retraining,Discharge Planning, Hot or Cold Pack,Neuromuscular Re-ed Other Recommendations and Next Treatment bed mob, transfers, gait w/FWW Focus , LE ex Precautions Other Precautions falls Recommendations To Nursing Amount of Assist Needed 1 Person Assist Discharge Recommendations PT Discharge Recommendations Home with 07/04 Assist Available,Home Health Transportation Needs at Discharge Private Vehicle
--- NOTE | 2021-12-28 11:03 | PM.DS.1 ---
History of Present Illness History of Present Illness Chief complaint: Nausea, Vomiting Narrative: Ms. Mariely Man is a 77-year-old female with a past medical history significant for rheumatoid arthritis on methotrexate and prednisone, gastroesophageal reflux, intermittent nausea who presents again with 3 weeks of persistent nausea and vomiting and inability to tolerate much oral intake.? She was admitted approximately a month ago and improved with scheduled medications with similar complaint at that time.? She was better for about a week when her nausea started to return.? Patient states that for the past 3 weeks she has had intermittent nausea with persistent nonbloody and nonbilious vomiting.? She denies any diarrhea, abdominal pain, melena or hematochezia, chest pain, palpitations, shortness of breath, fever.? She does have some chills.? She does not endorse any known sick contacts either.? She has not been able to eat or drink much at all.? She does endorse being able to take her chronic pain medications, but intermittently vomits when taking minimal liquids.? Her primary care provider had tapered her off of her prednisone which was stopped on December 03. She does intermittently become dizzy, not particularly more notable with standing or positional changes.? She denies any back pain, changes in her chronic arthritis. Written by admitting provider. Discharge Providers Provider Date of admission: 12/27/21 14:09 Discharge Date: 12/28/21 Primary care physician: Aeln Garsia MD Consults: 12/24/21 19:10 Consult to Physical Therapy Evaluate & Treat Comment: Physician Instructions: Evaluate and Treat 12/24/21 19:11 Consult to Occupational Therapy Evaluate & Treat Comment: Physician Instructions: Evaluate and treat 12/25/21 12:05 Consult to General Surgery Routine Comment: Consulting Provider: Tony Early Reason for consultation: nausea/vomiting x6 weeks Discharge provider: Davin Harper MD Summary Hospital Course Discharge Diagnosis: Ms. Mariely Man is a 77-year-old female with a past medical history significant for rheumatoid arthritis on methotrexate and prednisone, gastroesophageal reflux, intermittent nausea who presented with 3 weeks of persistent nausea and vomiting and inability to tolerate much oral intake. After workup with abdominal imaging, EGD, etc., no clear organic pathology was found for the patient's symptoms. However, her home prednisone 10 mg daily along with weekly methotrexate was discontinued approximately 3 weeks prior to admission. Resumption of prednisone 40 mg daily while inpatient seems to have ameliorate patient's sxs the most. Therefore, will discharge home on a 7-day course of prednisone 40 mg daily until patient can follow-up with provider managing her outpatient regimen. 1. Intractable nausea and vomiting ?- Unclear etiology as of now, given unremarkable EGD, CT abd/pelvis, cortisol stimulation test, or sources of infection UA negative? ?- IV Zofran and Reglan appear to help, along with an anti-emetic suppository, for which patient cannot recall name, likely Phenergan ?- If no other etiology found, it is possible that RA connective tissue disease is slowing intestinal motility 2. Mild ileus, likely due to chronic opiate use ?- Patient reports taking oxycodone 10 mg every 6 hours at home, for RA pain, for years ?- Continues to take these doses at home without reported difficulty, unlikely narcotic bowel syndrome 3. Rheumatoid arthritis, chronic, stable ?- Chronic prednisone 10 mg daily and weekly methotrexate stopped by PCP 3 weeks ago ?- Cosyntropin test inpatient unremarkable ?- On chronic opiate therapy to help with pain 4. Gastroesophageal reflux disorder, chronic, stable ?- Continue PPI outpatient 5. Hypomagnesemia, acute, improving ?- Likely due to decreased PO intake, replenish with magnesium oxide ?- The magnesium oxide might help with intestinal mobility, too 6. Episodes of SVT, likely related to low magnesium, resolved ?- Reported brief episodes that self-resolve Exam Vital Signs (past 8 hours): - 12/28/21 09:23 12/28/21 10:31 Temperature 97.8 F Pulse Rate 84 Respiratory Rate 18 Blood Pressure 111/52 L Pulse Oximetry 93 97 Oxygen Delivery Method Room Air Oxygen Flow Rate 0 Objective Labs Result Diagrams: 12/24/21 07:20 12/27/21 04:00 [facility] Medical History GERD (gastroesophageal reflux disease) Peripheral edema Rheumatoid arthritis Surgical History History of hand surgery History of total left knee replacement History of total right knee replacement Status post total hip replacement, left Status post wrist surgery Family History Mother No problems noted. Father No problems noted. Social History household members: spouse Smoking Status: Never smoker alcohol intake: current Discharge Assessment & Plan Assessment and Plan Assessment: Ms. Mariely Man is a 77-year-old female with a past medical history significant for rheumatoid arthritis on methotrexate and prednisone, gastroesophageal reflux, intermittent nausea who presented with 3 weeks of persistent nausea and vomiting and inability to tolerate much oral intake. After workup with abdominal imaging, EGD, etc., no clear organic pathology was found for the patient's symptoms. However, her home prednisone 10 mg daily along with weekly methotrexate was discontinued approximately 3 weeks prior to admission. Resumption of prednisone 40 mg daily while inpatient seems to have ameliorate patient's sxs the most. Therefore, will discharge home on a 7-day course of prednisone 40 mg daily until patient can follow-up with provider managing her outpatient regimen. 1. Intractable nausea and vomiting ?- Unclear etiology as of now, given unremarkable EGD, CT abd/pelvis, cortisol stimulation test, or sources of infection UA negative? ?- IV Zofran and Reglan appear to help, along with an anti-emetic suppository, for which patient cannot recall name, likely Phenergan ?- If no other etiology found, it is possible that RA connective tissue disease is slowing intestinal motility 2. Mild ileus, likely due to chronic opiate use ?- Patient reports taking oxycodone 10 mg every 6 hours at home, for RA pain, for years ?- Continues to take these doses at home without reported difficulty, unlikely narcotic bowel syndrome 3. Rheumatoid arthritis, chronic, stable ?- Chronic prednisone 10 mg daily and weekly methotrexate stopped by PCP 3 weeks ago ?- Cosyntropin test inpatient unremarkable ?- On chronic opiate therapy to help with pain 4. Gastroesophageal reflux disorder, chronic, stable ?- Continue PPI outpatient 5. Hypomagnesemia, acute, improving ?- Likely due to decreased PO intake, replenish with magnesium oxide ?- The magnesium oxide might help with intestinal mobility, too 6. Episodes of SVT, likely related to low magnesium, resolved ?- Reported brief episodes that self-resolve Discharge Plan Discharge Plan Patient Disposition: Home Discharge orders & Medications Prescriptions: New prednisone 20 mg tablet 40 mg PO DAILY 7 Days Qty: 14 0RF Continued meclizine 25 mg tablet 25 mg PO DAILY PRN (Reason: dizziness) Qty: 20 0RF omeprazole 40 mg capsule,delayed release(DR/EC) 40 mg PO DAILY 0RF zoledronic rret-nyakgzae-sxyzf [Reclast] 5 mg/100 mL Piggyback 5 mg IV PER PKG DIR 0RF Label Comments: pt states she gets this Q6 mos Rx Instructions: as directed intravenously once a year in February cholecalciferol (vitamin D3) [Vitamin D3] 2,000 unit Tablet 2,000 unit PO DAILY 0RF hydrocodone-acetaminophen 10-325 mg Tablet 1 tab PO Q4H PRN (Reason: Back Pain) Qty: 60 0RF gabapentin 800 mg tablet 800 mg PO PRN PRN (Reason: Pain (Scale Score 4-6)) 0RF Label Comments: pt states that she takes this as needed and not every day, and she thinks her last dose was a few days ago ondansetron 4 mg tablet,disintegrating 4 mg PO Q6H PRN (Reason: nausea and vomiting) 7 Days Qty: 30 0RF metoclopramide HCl 10 mg tablet 10 mg PO Q6H PRN (Reason: nausea and vomiting) 7 Days Qty: 30 0RF Discontinued prochlorperazine maleate [Compazine] 5 mg tablet 5 mg PO BID PRN (Reason: nausea and vomiting) Qty: 10 0RF Follow up/Referrals: Alen Garsia MD [Primary Care Provider] - Discharge Data Primary Care Provider: Alen Garsia
--- NOTE | 2021-12-28 13:24 | PC.NURSE ---
Pt is A&Ox3, VSS,afebrile on RA. She reports pain is well controlled with PRN norco for pain in her back and legs this a.m. Her appetite is good and she continues to deny nausea or vomitting. MD at bedside this a.m. clearing patient for discharge home after caregiver training with OT. Patient and caregiver training go well after breakfast. Patient verbalizes understanding and agreement with plan of discharge and expresses understanding of her medications and home regime. She is escorted via wheelchair to private vehicle with her child day care provider Angelia and all of her belongings and PARTS REMOVER assists her to private vehicle for discharge home at 1135 this a.m.
== END 2021-12-28 11:35 | disposition home or self-care (01) | DRG 392 ==
LOC: ED 14:50 → AC 14:57
PROVIDERS: Surgery; Admitting Provider Internal Medicine; Emergency Provider Emergency Medicine; PCP Internal Medicine; Visit Provider Internal Medicine
PROC: 0DJ08ZZ Inspection of Upper Intestinal Tract, Via Natural or Artificial Opening Endoscopic (ICD-10-PCS; CPT 43235; principal; 2021-12-25 16:00)
DX: R11.2 Nausea with vomiting, unspecified (principal); K56.7 Ileus, unspecified; I47.1 Supraventricular tachycardia; E83.42 Hypomagnesemia; M06.9 Rheumatoid arthritis, unspecified; K21.9 Gastro-esophageal reflux disease without esophagitis; Z20.822 Contact with and (suspected) exposure to COVID-19
CPT/HCPCS: 36415; 74177; 80048; 80053; 81003; 81015; 82962; 83605; 83690; 83735; 85025; 87040; 87635; 94760; 96361; 96374; 96375; 97116; 97162; 97166; 97530; 97535; 99225; 99284; C9803; G0378; C9113; J0610; J0834; J1170; J1650; J2250; J2405; J2765; J3010; J3475

== ENCOUNTER 2022-01-09 12:55 | Inpatient (IN) | payer MEDICARE, OTHER, SELFPAY ==
[2021-12-24 15:28] VITALS: BMI 19.3
[2022-01-09] VITALS (12 sets, daily range): BP systolic 85–142; BP diastolic 51–87; PULSE 75–153; RESP 16–26; TEMP 36.2–37.1; O2SAT 94–96; BMI 20.3
--- NOTE | 2022-01-09 13:08 | DI.RAD.S_ITS ---
PROCEDURE: XR CHEST 1V INDICATIONS: chest pain TECHNIQUE: One view of the chest was acquired. COMPARISON: [facility], CR, XR CHEST 1V, 12/10/2021, 11:02. FINDINGS: Surgical changes and devices: None. Lungs and pleura: Unchanged costophrenic angle blunting suggestive trace effusions versus scarring. Mediastinum: Mediastinal contours appear normal. Heart size is mildly enlarged. Bones and chest wall: No suspicious bony lesions. Overlying soft tissues appear unremarkable. IMPRESSION: Trace effusions versus scarring. Dictated by: Ximena Varela M.D. on 01/09/2022 at 13:54 Approved by: Ximena Varela M.D. on 01/09/2022 at 13:55
[2022-01-09 13:23] LABS: Add Manual Diff / Slide Review NO; Basophils Absolute Auto 100 /uL (0-100); Basophils Percent Auto 0.5 % (0-2); Eosinophils Absolute Auto 100 /uL (0-450); Eosinophils Percent Auto 0.9 % (2-4); Hematocrit 38.8 % (36-46); Hemoglobin 12.7 g/dL (12.0-16.0); Lymphocytes Absolute Auto 1500 /uL (1100-4500); Mean Corpuscular HGB Conc 32.8 % (30-36); Mean Corpuscular Hemoglobin 32.6 PG (26-34); Mean Corpuscular Volume 99.3 fL (80-100); Monocytes Absolute Auto 1300 /uL (0-900); Monocytes Percent Auto 9.8 % (3-14); Neutrophils Absolute Auto 10200 /uL (1500-7000); Neutrophils Percent Auto 77.8 % (50-75); Platelet Count 326 X10^3/uL (150-400); Red Cell Distribution Width 15.3 % (11.6-14.8); White Blood Cell Count 13.2 X10^3/uL (4.5-11.0)
[2022-01-09 13:37] LABS: Alanine Aminotransferase 10 IU/L (<35); Albumin 3.2 g/dL (3.5-5.0); Albumin Globulin Ratio 1.2 (1.0-2.8); Alkaline Phosphatase 59 U/L (38-126); Aspartate Aminotransferase 20 IU/L (14-36); BUN Creatinine Ratio 13.2 (6-22); Bilirubin Total 0.7 mg/dL (0.2-1.3); Blood Urea Nitrogen 7 mg/dL (7-17); Calcium 8.4 mg/dL (8.4-10.2); Carbon Dioxide 31 mmol/L (22-32); Chloride 100 mmol/L (98-107); Creatine Kinase 23 U/L (30-135); Estimated Glomerular Filt Rate > 60 mL/min (>60); Globulin 2.6 g/dL (1.7-4.1); Glucose 108 mg/dL (80-110); HEMOLYSIS < 15 (0-50); Lipase 22 U/L (23-300); Magnesium 1.6 mg/dL (1.6-2.3); Potassium 3.7 mmol/L (3.4-5.1); Sodium 136 mmol/L (137-145); Total Protein 5.8 g/dL (6.3-8.2)
--- NOTE | 2022-01-09 13:39 | ED.ARRPALP ---
HPI - Arrhythmia/Palpitations General Chief Complaint: Arrhythmia/Palpitations Stated Complaint: Weakness,recently here for cystitis,D/C 12/28/21 Time Seen by Provider: 01/09/22 13:09 Source: patient Mode of arrival: EMS History of Present Illness HPI narrative: Patient is an 81-year-old female. Was recently admitted to the hospital and discharged approximately 10 days ago for an unrelated issue that brought her in today. During that time it was noted that she was having episodes of SVT. Patient has never had any issues like this in the past. She returns the emergency department here today for weakness. She states that most of her symptoms started approximately 2 days ago. She is having some shortness of breath. Some occasional chest tightness. Some occasional chest fluttering. Lower extremity swelling. No headache. No lightheadedness. She feels somewhat weak. She currently is only on prednisone for her rheumatoid arthritis. At 1 point she was on methotrexate but she is now off of this medication. Not on blood thinners. Related Data Home Medications Medication Instructions Recorded Confirmed omeprazole 40 mg capsule,delayed 40 mg PO DAILY 09/29/18 12/24/21 release cholecalciferol (vitamin D3) 50 2,000 unit PO DAILY 10/28/19 12/24/21 mcg (2,000 unit) tablet (Vitamin D3) zoledronic acid 5 mg/100 mL in 5 mg IV PER PKG DIR 10/28/19 12/24/21 mannitol 5 %-water intravenous piggybck (Reclast) gabapentin 800 mg tablet 800 mg PO PRN PRN 12/04/21 12/24/21 Previous Rx's Medication Instructions Recorded hydrocodone 10 mg-acetaminophen 1 tab PO Q4H PRN #60 tab 11/01/19 325 mg tablet meclizine 25 mg tablet 25 mg PO DAILY PRN #20 tab 07/27/20 ondansetron 4 mg disintegrating 4 mg PO Q6H PRN 7 Days #30 tab 12/28/21 tablet Allergies Allergy/AdvReac Type Severity Reaction Status Date / Time codeine Allergy Verified 01/09/22 13:07 morphine AdvReac Severe Vomiting Verified 01/09/22 13:07 meperidine [MEPERIDINE] AdvReac Unknown VOMITING Verified 01/09/22 13:07 oxycodone [OXYCODONE] AdvReac Unknown NAUSEA Verified 01/09/22 13:07 Review of Systems Constitutional Constitutional: Reports fatigue, Denies fever(s) and Denies headache(s) Eyes Eyes: Reports system reviewed and no additional complaints, except as documented ENT Ears, Nose, Mouth, and Throat: Denies vertigo, Denies dizziness and Denies headache(s) Cardiovascular Cardiovascular: Reports as per HPI and Reports system reviewed and no additional complaints, except as documented Respiratory Respiratory: Reports as per HPI and Reports system reviewed and no additional complaints, except as documented Gastrointestinal Gastrointestinal: Denies abdominal pain, Denies nausea and Denies vomiting Genitourinary Genitourinary: Reports system reviewed and no additional complaints, except as documented Musculoskeletal Comments: Baseline joint discomfort for rheumatoid arthritis Integumentary/Breasts Skin/Breast: Reports system reviewed and no additional complaints, except as documented Neurologic Neurologic: Denies vertigo, Denies dizziness and Denies headache(s) Psychiatric Psychiatric: Reports system reviewed and no additional complaints, except as documented Endocrine Endocrine: Reports fatigue Hematologic/Lymphatic On Anticoagulants: No Allergic/Immunologic Allergic/Immunologic: Reports system reviewed and no additional complaints, except as documented Patient History Medical History GERD (gastroesophageal reflux disease) Peripheral edema Rheumatoid arthritis Surgical History History of hand surgery History of total left knee replacement History of total right knee replacement Status post total hip replacement, left Status post wrist surgery Family History Mother No problems noted. Father No problems noted. Social History household members: spouse Smoking Status: Never smoker alcohol intake: current Smoking Status: Never smoker alcohol intake frequency: holidays/special occasions only Substance Use Type: does not use Exam Initial Vital Signs Initial Vital Signs: Vital Signs Pulse Rate 150 H 01/09/22 12:59 Respiratory Rate 19 01/09/22 12:59 Blood Pressure 127/86 01/09/22 12:59 Pulse Oximetry 95 01/09/22 12:59 Const General: cooperative and comfortable HENMT Head: normal to inspection and normocephalic Eyes General: Yes appearance normal, both eyes and all related structures Neck Neck: normal visual inspection Chest Chest: normal inspection of the chest Resp Effort & Inspection: normal respiratory effort Auscultation: clear to auscultation bilaterally Cardio Rate: tachycardic Rhythm: regular rhythm GI Inspection: normal to inspection Skin General: no rashes or lesions noted Neuro General: patient alert, patient awake and moves all extremities Speech: speech normal Gait: normal gait Extrem General: No edema Psych Appearance: grossly normal and well kempt Course Orders Ordered: ED Orders 01/09/22 13:00 Complete Blood Count AUTO DIFF Stat Comprehensive Metabolic Panel Stat Lipase Stat Magnesium Stat Troponin & CK Cardiac Panel Stat 01/09/22 13:08 XR chest 1V Stat EKG-12 Lead Stat Diltiazem HCl 125 mg/ Dextrose 125 mls @ 5 mls/hr IV TITRATE ALDO; Protocol Last Admin: 01/09/22 14:07 Dose: 5 mg/hr, 5 mls/hr Documented by: EDITH Discontinued Medications Apixaban (Apixaban 5 Mg Tablet) 10 mg PO NOW ONE Stop: 01/09/22 14:07 Diltiazem HCl (Diltiazem 5 Mg/Ml Sdv) 10 mg IV NOW ONE Stop: 01/09/22 13:41 Last Admin: 01/09/22 14:08 Dose: 10 mg Documented by: EMILIOR Vital Signs Vital signs: Vital Signs - 8 hr 01/09/22 12:59 01/09/22 13:00 01/09/22 13:30 Temperature 98.8 F Pulse Rate 150 H 153 H 145 H Respiratory Rate 19 21 26 H Blood Pressure 127/86 142/70 H 138/78 Pulse Oximetry 95 96 96 MDM - Arrhythmia/Palpitations Lab Data Attestation: I reviewed the patient's lab results. Result diagrams: 01/09/22 13:00 01/09/22 13:00 Labs: Lab Results 01/09/22 01/09/22 Range/Units 13:00 13:00 WBC 13.2 H (4.5-11.0) X10^3/uL RBC 3.90 L (4.0-5.2) X10^6/uL Hgb 12.7 (12.0-16.0) g/dL Hct 38.8 (36-46) % MCV 99.3 (80-100) fL MCH 32.6 (26-34) PG MCHC 32.8 (30-36) % RDW 15.3 H (11.6-14.8) % Plt Count 326 (150-400) X10^3/uL Neut % (Auto) 77.8 H (50-75) % Lymph % (Auto) 11.0 L (25-40) % Wagoner % (Auto) 9.8 (3-14) % Eos % (Auto) 0.9 L (2-4) % Baso % (Auto) 0.5 (0-2) % Neut # (Auto) 45535 H (3257-5759) /uL Lymph # (Auto) 1500 (8716-6860) /uL Wagoner # (Auto) 1300 H (0-900) /uL Eos # (Auto) 100 (0-450) /uL Baso # (Auto) 100 (0-100) /uL Sodium 136 L (137-145) mmol/L Potassium 3.7 (3.4-5.1) mmol/L Chloride 100 (98-107) mmol/L Carbon Dioxide 31 (22-32) mmol/L BUN 7 (7-17) mg/dL Creatinine 0.53 (0.52-1.04) mg/dL Estimated GFR > 60 (>60) mL/min BUN/Creatinine Ratio 13.2 (6-22) Glucose 108 (80-110) mg/dL Calcium 8.4 (8.4-10.2) mg/dL Magnesium 1.6 (1.6-2.3) mg/dL Total Bilirubin 0.7 (0.2-1.3) mg/dL AST 20 (14-36) IU/L ALT 10 (<35) IU/L Alkaline Phosphatase 59 (38-126) U/L Total Creatine Kinase 23 L (30-135) U/L CK-MB (CK-2) TNP CK-MB (CK-2) Rel Index TNP Troponin I 0.156 H* (0.01-0.034) ng/mL Total Protein 5.8 L (6.3-8.2) g/dL Albumin 3.2 L (3.5-5.0) g/dL Globulin 2.6 (1.7-4.1) g/dL Albumin/Globulin Ratio 1.2 (1.0-2.8) Lipase 22 L (23-300) U/L Imaging Data Chest x-ray: Radiologist's Impresson: [place] [id number] [address] [place] [id number] XRay Report Signed Patient: Mariely Man MR#: [id number] : 1940 Acct:[id number] Age/Sex: 81 / F Date of Service: 01/09/22 Loc: ED Accession Number: [id number] ?? Procedure: XR chest 1V Ordering Provider: Nestor Brunner D.O. PROCEDURE:? XR CHEST 1V ? INDICATIONS:? chest pain ? TECHNIQUE:? One view of the chest was acquired.? ? COMPARISON:? [facility], CR, XR CHEST 1V, 12/10/2021, 11:02. ? FINDINGS:? ? Surgical changes and devices:? None.? ? Lungs and pleura:? Unchanged costophrenic angle blunting suggestive trace effusions versus scarring. ? Mediastinum:? Mediastinal contours appear normal.? Heart size is mildly enlarged. ? Bones and chest wall:? No suspicious bony lesions.? Overlying soft tissues appear unremarkable.? ? IMPRESSION:? Trace effusions versus scarring. ? ? Dictated by: Ximena Varela M.D. on 01/09/2022 at 13:54 ? ? Approved by: Ximena Varela M.D. on 01/09/2022 at 13:55?? ECG Data Attestation: I personally reviewed and interpreted this ECG as follows: Interpretation: Atrial fibrillation Ventricular rate 140 Normal axis Normal QRS No ST T wave changes MDM Narrative Medical decision making narrative: No respiratory distress. No prior history of AFib. His AFib/a flutter with RVR today. Not fluid overloaded. Clinically not in heart failure. No fevers. Does appear that her symptoms started approximately 2 days ago but were not 100% sure this. Patient not a candidate for cardioversion given the unsure onset of the symptoms and not on anticoagulation. Patient started on Cardizem. Troponin elevated which I suspect is secondary to her AFib. Was given Eliquis. Discussed the case with Dr. Harper with internal medicine who will admit for further evaluation and treatment. Discussed the need for admission with the patient. She expressed understanding agreement. Critical Care Time Critical Care Time Critical Care Time: Yes Total Critical Care Time: 35 Attestation: The high probability of a clinically significant, sudden or life threatening deterioration of the cardiovascular system(s) required my full and direct attention, intervention and personal management. The aggregate critical care time was [35] minutes. This time is in addition to time spent performing reported procedures but includes the following: [x] Data Review and interpretation [x] Patient assessment and monitoring of vital signs [x] Documentation [x] Medication orders and management Discharge Plan Departure Patient Disposition: Admitted As Inpatient Clinical Impression: Atrial fibrillation with RVR Admit Date/Time: 01/09/22 14:08 Admit Provider: Davin Harper
[2022-01-09] MEDS: dilTIAZem 125 MG in DEXTROSE 5 % IN WATER 100 ML IV (14:07)
[2022-01-09] MEDS: dilTIAZem 5 MG/ML SDV 10 MG IV (14:08)
[2022-01-09 14:13] LABS: Troponin I 0.156 ng/mL (0.01-0.034)
[2022-01-09] MEDS: APIXABAN 5 MG TABLET 10 MG PO (14:40)
--- NOTE | 2022-01-09 15:02 | CM.IDA ---
DCP Assessment Patient is 81 y/o female who presents to due to concern for generalized weakness. In ED patient is presenting with episodes of SVT. SLEEPING CAR SERVICE ATTENDANT receives consult for patient in ED due to requesting regular contact when patient is in hospital as he is out of state and does not know when he can return. Spouse Rajendra can be reached at (Ph. # [phone]) PCP: Dr. Garsia and Insurance: [facility] Patient currently has registered phlebotomist part time caregiver Angelia. Per RN, Angelia reports concern of being nervous about caring for patient and meeting her needs but RN reports that patient presents with anxiety about abilities to perform ADLs. Per RN, it is reported that spouse would like patient to seek SNF rehab placement if appropriate due to caregiver's concerns for meeting patient needs and due to concern for spouse being out of state and unable to support patient at this time. Plan: f/u with POC after further medical and therapy assessment. MONIQUE Peralta Discharge Planning/Care Management CM Discharge Assessment Start: 01/09/22 14:57 Freq: Status: Active Protocol: Document 01/09/22 14:57 LN (Rec: 01/09/22 15:01 LN [id number]) Discharge Planning Assessment Assigned Plant Operations Manager MONIQUE Tello DPOA/Assigned Designee Name Rajendra Man, spouse Contact Information [phone] Advance Directives? Yes Advance Directives on File No History Provided By Medical Record Has Patient been admitted in last 30 Yes days? Comment 12/27/21-12/28/21 Prior Living Arrangements House Household Members spouse Type of transporation used prior to Relies on Others admit Independent with ADL's Yes: Yes: 4WW for all mobility , hx of falls and fx Is patient alert and oriented? Yes: A/O to self, person and location Comment Patient has registered phlebotomist part time caregiver while is out of state to assist with ADLs DME Already Rented / Owned FWW / Walker Comment Patient plans to return home w /spouse and cg Angelia to assist Additional Comment SNF? Please Provide Date Initial DC 01/09/22 Assessment Was Performed
[2022-01-09 15:29] LABS: COVID19 -Nasal RAPID Negative (Negative)
--- NOTE | 2022-01-09 16:07 | DI.ECHO.S_ITS ---
[facility]---------+ [facility] +---------+ : : [address] : : : : [id number] : : : : Phone: [phone] Echocardiogram Report + + :Name: TREVOR NEGRETE Study Date: 01/10/2022 Height: 66 in : :[facility] ReadingLocation: Weight: 126 lb : : Gender: Female BSA: 1.6 m2 : :: 1940 Age: 81 yrs BP: 110/63 mmHg: :Reason For Study: Atrial fibrillation : :Ordering Physician: ANDREA, : :RORO Performed By: Forrest Steele : :Referring: TONYA MENDEZ : + + Interpretation Summary The ejection fraction is estimated to be 65-70%. Diastolic parameters suggest probable normal left ventricular diastolic function and normal filling pressures. The right ventricle is normal in size and function. There is mild mitral regurgitation. There is mild tricuspid regurgitation. PASP is approximately 25 to 30 mmHg. Procedure: A two-dimensional transthoracic echocardiogram with color flow and Doppler was performed. The study quality was technically adequate. There is no prior echocardiogram noted for this patient. Left Ventricle: The left ventricle is normal in size and wall thickness. Left ventricular systolic function is normal. The ejection fraction is estimated to be 65-70%. There are no focal wall motion abnormalities. Diastolic parameters suggest probable normal left ventricular diastolic function and normal filling pressures. Right Ventricle: The right ventricle is normal in size and function. Atria: Both atria are normal in size. The interatrial septum grossly appears intact with no obvious evidence for an atrial septal defect. Mitral Valve: There is moderate to severe mitral annular calcification. There is mild mitral regurgitation. Aortic Valve: The aortic valve is trileaflet. There is no aortic valve stenosis. There is trace aortic regurgitation. Tricuspid Valve: The tricuspid valve is normal in structure and function. PASP is approximately 25 to 30 mmHg. There is mild tricuspid regurgitation. Pulmonic Valve: The pulmonic valve is normal in structure and function. There is no pulmonic valvular regurgitation. Great Vessels: The aortic root is normal size. The dimensions of the ascending aorta are normal. The IVC is of normal diameter and collapses greater than 50% with a sniff. This suggests a low right atrial pressure of 3 mm Hg. Pericardium/ Pleura There is no pericardial effusion. There is no pleural effusion. MMode/2D Measurements & Calculations LVIDd: 3.3 cm LVOT diam: 1.8 cm LVIDs: 2.2 cm Ao root diam: 2.6 cm FS: 33.3 % asc Aorta Diam: 2.8 cm IVSd: 0.85 cm LVPWd: 0.85 cm LV amezcua. diameter/BSA (cm/m^2): 2.0 LV sys. diameter/BSA (cm/m^2): 1.3 LA A2 area: 11.7 cm2 RA long axis: 4.4 cm LA A4 area: 17.1 cm2 LA length (vol): 3.7 cm LA vol: 45.8 ml LA vol index: 27.9 ml/m2 TAPSE_phl: 2.0 cm Doppler Measurements & Calculations Ao V2 max: 113.0 cm/sec LVOT Max Vicente: 88.1 cm/sec Ao V2 mean: 82.0 cm/sec LV V1 max P.1 mmHg Ao max P.0 mmHg LV V1 VTI: 14.8 cm Ao mean P.0 mmHg BRITTANEY(I,D): 1.8 cm2 Ao V2 VTI: 20.6 cm BRITTANEY(V,D): 2.0 cm2 sev ratio: 0.72 BRITTANEY indexed to BSA (cm^2/m^2): 1.1 MV E max vicente: 117.0 cm/sec TR max vicente: 232.0 cm/sec MV A max vicente: 51.0 cm/sec TR max P.5 mmHg MV E/A: 2.3 Med Peak E' Vicente: 10.7 cm/sec E/E' med: 10.9 Lat Peak E' Vicente: 14.0 cm/sec E/E' lat: 8.4 E/e' average: 9.6 MV dec time: 0.18 sec SV(LVOT): 37.7 ml AV VR_phl: 0.78 BRITTANEY(VTI)/BSA_phl: 1.1 MV P1/2t-pr_phl: 53.0 msec Reading Physician:11:40 AM
--- NOTE | 2022-01-09 16:10 | P.HP_ITS ---
History of Present Illness History of Present Illness Chief complaint: Weakness,recently here for cystitis,D/C 12/28/21 Narrative: 81yo female with a hx of rheumatoid arthritis not on current therapy that presents with feeling dizzy and SOB. The patient states this started earlier today. Her caregiver was preparing the patient to go see her PCP when this occurred. The patient reports palpitations at this time, too, and had to take a seat to catch her breath. She felt better after sitting down. She denies that this has happened before. She denies CP at that time, paresthesias, back pain, diaphoresis, nausea, or LOC. She denies recent falls or trauma. The patient was recently discharged for intractable n/v. Her home prednisone was resumed for a few days afterward and patient felt better with that. She f ollowed-up with the physician who had been managing her methotrexate and prednisone. Patient states that they decided to not continue said meds. She denies any issues with n/v in the interim. The patient denies ever having a fib before. She denies any hx of TIA's or CVA's. She denies any relevant family history. She denies ever smoking tobacco and denies regular EtOH consumption or recent use. She is requesting PT/OT as she believes she's too deconditioned to go back home and is amenable to jay jay cement. Patient History Medical History GERD (gastroesophageal reflux disease) Peripheral edema Rheumatoid arthritis Surgical History History of hand surgery History of total left knee replacement History of total right knee replacement Status post total hip replacement, left Status post wrist surgery Family & Social History Family History Mother No problems noted. Father No problems noted. Social History: household members spouse Prior Living Arrangements House Safety & Behavioral: Feels Safe in Current Yes Environment Been Physically Hurt or No Threatened By a Person Suicidal Ideation Description None Suicide Plan Description No Plan Tobacco & Substance use: Smoking Status Never smoker alcohol intake current alcohol intake frequency holiday/special occasion Substance Use Type does not use Meds Home Medications and Allergies Home Medications Medication Instructions Recorded Confirmed Type omeprazole 40 mg capsule,delayed 40 mg PO DAILY 09/29/18 12/24/21 History release cholecalciferol (vitamin D3) 50 2,000 unit PO DAILY 10/28/19 12/24/21 History mcg (2,000 unit) tablet (Vitamin D3) zoledronic acid 5 mg/100 mL in 5 mg IV PER PKG DIR 10/28/19 12/24/21 History mannitol 5 %-water intravenous piggybck (Reclast) hydrocodone 10 mg-acetaminophen 1 tab PO Q4H PRN #60 tab 11/01/19 12/24/21 Rx 325 mg tablet meclizine 25 mg tablet 25 mg PO DAILY PRN #20 tab 07/27/20 12/24/21 Rx gabapentin 800 mg tablet 800 mg PO PRN PRN 12/04/21 12/24/21 History ondansetron 4 mg disintegrating 4 mg PO Q6H PRN 7 Days #30 tab 12/28/21 Rx tablet Allergies Allergy/AdvReac Type Severity Reaction Status Date / Time codeine Allergy Verified 01/09/22 13:07 morphine AdvReac Severe Vomiting Verified 01/09/22 13:07 meperidine [MEPERIDINE] AdvReac Unknown VOMITING Verified 01/09/22 13:07 oxycodone [OXYCODONE] AdvReac Unknown NAUSEA Verified 01/09/22 13:07 Review of Systems Constitutional Comments: Denies fever/chills, night sweats, unintentional weight loss Eyes Comments: Denies vision changes Cardiovascular Comments: Endorses palpitations, denies CP, SOB Respiratory Comments: Denies cough, SOB Gastrointestinal Comments: Denies abd pain, n/v/d Neurologic Comments: Endorsed lightheadedness, denies LOC Exam Vital Signs (past 8 hours): - 01/09/22 12:59 01/09/22 13:00 01/09/22 13:30 Temperature 98.8 F Pulse Rate 150 H 153 H 145 H Respiratory Rate 19 21 26 H Blood Pressure 127/86 142/70 H 138/78 Pulse Oximetry 95 96 96 01/09/22 14:00 01/09/22 14:13 01/09/22 14:16 Temperature Pulse Rate 146 H 135 H 113 H Respiratory Rate 18 20 Blood Pressure 113/69 85/54 L 99/51 L Pulse Oximetry 95 96 96 Oxygen Delivery Method Room Air Const Other: Patient laying in bed comfortably upon my entering the room, in no apparent acute distress Eyes Other: No scleral icterus appreciated Neck Other: No carotid bruits noted Resp Other: Lungs clear to auscultation bilaterally Cardio Other: Tachycardic rate with irregular rhythm, S1 and S2 heart sounds normal, with no extra heart sounds appreciated, or murmurs GI Other: Soft, non-distended, non-tender, bowel sounds present Skin Other: No grossly abnormal skin lesions noted Extrem Other: Ulnar deviation of bilateral hands noted, with palpable dorsalis pedis bilaterally, no peripheral edema noted Objective Labs Result Diagrams: 01/09/22 13:00 01/09/22 13:00 Labs: Laboratory Results - last 24 hr 01/09/22 01/09/22 01/09/22 13:00 13:00 14:52 WBC 13.2 H RBC 3.90 L Hgb 12.7 Hct 38.8 MCV 99.3 MCH 32.6 MCHC 32.8 RDW 15.3 H Plt Count 326 Neut % (Auto) 77.8 H Lymph % (Auto) 11.0 L Elbert % (Auto) 9.8 Eos % (Auto) 0.9 L Baso % (Auto) 0.5 Neut # (Auto) 77957 H Lymph # (Auto) 1500 Elbert # (Auto) 1300 H Eos # (Auto) 100 Baso # (Auto) 100 Sodium 136 L Potassium 3.7 Chloride 100 Carbon Dioxide 31 BUN 7 Creatinine 0.53 Estimated GFR > 60 BUN/Creatinine Ratio 13.2 Glucose 108 Calcium 8.4 Magnesium 1.6 Total Bilirubin 0.7 AST 20 ALT 10 Alkaline Phosphatase 59 Total Creatine Kinase 23 L CK-MB (CK-2) TNP CK-MB (CK-2) Rel Index TNP Troponin I 0.156 H* Total Protein 5.8 L Albumin 3.2 L Globulin 2.6 Albumin/Globulin Ratio 1.2 Lipase 22 L SARS-CoV-2 (PCR) Negative Assessment & Plan Assessment & Plan narrative: Assessment: 1. Atrial fibrillation with RVR 2. Myocardial injury, likely due to a fib with RVR 3. Hx of rheumatoid arthritis, stable 4. GERD 5. Osteoporosis Plan: 1. Telemetry on-board. IV diltiazem on-board, with plan to add PO diltiazem 30 mg every 6 hours to help transition off IV. Anticoagulation with Eliquis 2.5 mg bid, given age > 80 and weight < 60 kg. Echocardiogram pending. 2. Troponin elevation likely from supply/demand mismatch from a fib with RVR. Will trend until downtrending. 3. Outpatient methotrexate and daily prednisone were discontinued by managing physician approximately 2 months ago. 4. Will continue home PPI. 5. Outpatient management to continue with zolendronc acid. VTE prophylaxis: Eliquis, as above Code: Full Code Proxy: I have utilized all available immediate resources to obtain, update, or verify the patient's current medications. Time Spent With Patient Critical Care time: I spent a total of [] minutes of critical care time on this patient's care today; this time is exclusive of procedural time. Quality MIPS - Admit I confirm the patient?s Advance Care Plan is present, Code status is documented, Surrogate decision maker is in patient?s record [If Yes, STOP here]: Yes
[2022-01-09] MEDS: dilTIAZem 30 MG TABLET PO (18:10)
--- NOTE | 2022-01-09 19:20 | PC.ADMIT ---
[facility] Admission Note: The patient,Mariely Man,81 y/o, was given written information regarding hospital policies, unit procedures and contact persons. Patient's smoking status: Never smoker. Vital Signs - 8 hr 01/09/22 12:59 01/09/22 13:00 01/09/22 13:30 Temperature 98.8 F Pulse Rate 150 H 153 H 145 H Respiratory Rate 19 21 26 H Blood Pressure 127/86 142/70 H 138/78 Pulse Oximetry 95 96 96 01/09/22 14:00 01/09/22 14:13 01/09/22 14:16 Temperature Pulse Rate 146 H 135 H 113 H Respiratory Rate 18 20 Blood Pressure 113/69 85/54 L 99/51 L Pulse Oximetry 95 96 96 01/09/22 16:02 01/09/22 18:10 Temperature 98.7 F Pulse Rate 103 H 103 H Respiratory Rate 16 Blood Pressure 129/87 129/87 Pulse Oximetry 94 Patient admitted from ED around 1505. Under hospitalists care. A/Ox4, RA, on dilt gtt. Tele showing Afib rate 100-120bpm BP WNL. Patient has no complaints of chest pain or any other pain. Oriented to room and call light, bed alarm on, able to make needs known.
[2022-01-09] MEDS: HYDROCODONE/ACET 10/325 TABLET 1 TAB PO (19:53)
[2022-01-09] MEDS: CYCLOBENZAPRINE 10 MG TABLET 5 MG PO (22:55)
[2022-01-09] MEDS: GABAPENTIN 400 MG CAPSULE 800 MG PO (22:55)
--- NOTE | 2022-01-09 23:04 | P.TELICUCN_ITS ---
History of Present Illness Consult details Date Patient Seen: 01/09/22 Chief complaint: Weakness,recently here for cystitis,D/C 12/28/21 :: This patient was seen via real time interactive two-way audiovisual telecommunication. Narrative: 81 y.o. F w/ PMHx of RA who presented with dizziness and SOB. Symptoms started about 2 days ago. HR was 150 and rhythm was AF. She was discharged 12/28 from [facility] when she as hospitalized from a UTI. Troponin I is 0.15. Started on IV and PO diltiazem by bedside team. No known hx of previous AF. [facility] Medical History GERD (gastroesophageal reflux disease) Peripheral edema Rheumatoid arthritis Surgical History History of hand surgery History of total left knee replacement History of total right knee replacement Status post total hip replacement, left Status post wrist surgery Family History Mother No problems noted. Father No problems noted. Social History household members: spouse Smoking Status: Never smoker alcohol intake: current Current Medications Current Medications Medications: Home Medications omeprazole 40 mg capsule,delayed release 40 mg PO DAILY 09/29/18 [History Confirmed 01/09/22] cholecalciferol (vitamin D3) 50 mcg (2,000 unit) tablet (Vitamin D3) 2,000 unit PO DAILY 10/28/19 [History Confirmed 01/09/22] hydrocodone 10 mg-acetaminophen 325 mg tablet 1 tab PO Q4H PRN #60 tab 11/01/19 [Rx Confirmed 01/09/22] gabapentin 800 mg tablet 800 mg PO PRN PRN 12/04/21 [History Confirmed 01/09/22] folic acid 800 mcg tablet 0.8 mg PO DAILY 01/09/22 [History Confirmed 01/09/22] metaxalone 800 mg tablet 800 mg PO BID PRN 01/09/22 [History Confirmed 01/09/22] prochlorperazine maleate 5 mg tablet 5 mg PO AC 01/09/22 [History Confirmed 01/09/22] zolpidem 10 mg tablet 10 mg PO BEDTIME 01/09/22 [History Confirmed 01/09/22] Visit Medications (administered) Generic Name Dose Route Start Last Admin Trade Name Tiffany PRN Reason Stop Dose Admin Hydrocodone Bitart/Acetaminophen 1 tab 01/09/22 20:00 01/09/22 22:18 Hydrocodone/Acet 10/325 Tablet PO Not Given Q8HR ALDO Cyclobenzaprine HCl 5 mg 01/09/22 22:45 01/09/22 22:55 Cyclobenzaprine 10 Mg Tablet PO 5 mg BID ALDO Administration Diltiazem HCl 30 mg 01/09/22 18:00 01/09/22 18:10 Diltiazem 30 Mg Tablet PO 30 mg Q6HR ALDO Administration Gabapentin 800 mg 01/09/22 22:45 01/09/22 22:55 Gabapentin 400 Mg Capsule PO 800 mg TID ALDO Administration Diltiazem HCl 125 mg/ Dextrose 125 mls @ 5 mls/hr 01/09/22 13:40 01/09/22 14:40 IV 0 mg/hr TITRATE ALDO 0 mls/hr Titration Protocol 5 MG/HR Exam Vital Signs (past 8 hours): - 01/09/22 16:02 01/09/22 18:10 01/09/22 19:40 Temperature 98.7 F 97.2 F L Pulse Rate 103 H 103 H 80 Respiratory Rate 16 20 Blood Pressure 129/87 129/87 113/60 Pulse Oximetry 94 94 01/09/22 20:02 Temperature Pulse Rate Respiratory Rate Blood Pressure Pulse Oximetry 96 Oxygen Delivery Method Room Air Oxygen Flow Rate 0 Const General: cooperative and comfortable Cardio Other: Diltiazem @ 15 mg/hr currently Objective Labs Result Diagrams: 01/09/22 13:00 01/09/22 13:00 Labs: Laboratory Results - last 24 hr 01/09/22 01/09/22 01/09/22 13:00 13:00 14:52 WBC 13.2 H RBC 3.90 L Hgb 12.7 Hct 38.8 MCV 99.3 MCH 32.6 MCHC 32.8 RDW 15.3 H Plt Count 326 Neut % (Auto) 77.8 H Lymph % (Auto) 11.0 L [place] % (Auto) 9.8 Eos % (Auto) 0.9 L Baso % (Auto) 0.5 Neut # (Auto) 01175 H Lymph # (Auto) 1500 [place] # (Auto) 1300 H Eos # (Auto) 100 Baso # (Auto) 100 Sodium 136 L Potassium 3.7 Chloride 100 Carbon Dioxide 31 BUN 7 Creatinine 0.53 Estimated GFR > 60 BUN/Creatinine Ratio 13.2 Glucose 108 Calcium 8.4 Magnesium 1.6 Total Bilirubin 0.7 AST 20 ALT 10 Alkaline Phosphatase 59 Total Creatine Kinase 23 L CK-MB (CK-2) TNP CK-MB (CK-2) Rel Index TNP Troponin I 0.156 H* Total Protein 5.8 L Albumin 3.2 L Globulin 2.6 Albumin/Globulin Ratio 1.2 Lipase 22 L SARS-CoV-2 (PCR) Negative 01/09/22 16:23 WBC RBC Hgb Hct MCV MCH MCHC RDW Plt Count Neut % (Auto) Lymph % (Auto) [place] % (Auto) Eos % (Auto) Baso % (Auto) Neut # (Auto) Lymph # (Auto) [place] # (Auto) Eos # (Auto) Baso # (Auto) Sodium Potassium Chloride Carbon Dioxide BUN Creatinine Estimated GFR BUN/Creatinine Ratio Glucose Calcium Magnesium Total Bilirubin AST ALT Alkaline Phosphatase Total Creatine Kinase CK-MB (CK-2) CK-MB (CK-2) Rel Index Troponin I 0.150 H* Total Protein Albumin Globulin Albumin/Globulin Ratio Lipase SARS-CoV-2 (PCR) Assessment & Plan Time Spent With Patient Critical Care time: I spent a total of [] minutes of critical care time on this patient's care today; this time is exclusive of procedural time.
--- NOTE | 2022-01-09 23:07 | P.TELICUCN_ITS ---
History of Present Illness Consult details Chief complaint: Weakness,recently here for cystitis,D/C 12/28/21 :: This patient was seen via real time interactive two-way audiovisual telecommunication. [facility] Medical History (Updated 01/09/22 @ 23:07 by Jean Contreras MD) GERD (gastroesophageal reflux disease) Peripheral edema Rheumatoid arthritis Surgical History History of hand surgery History of total left knee replacement History of total right knee replacement Status post total hip replacement, left Status post wrist surgery Family History Mother No problems noted. Father No problems noted. Social History household members: spouse Smoking Status: Never smoker alcohol intake: current Current Medications Current Medications Medications: Home Medications omeprazole 40 mg capsule,delayed release 40 mg PO DAILY 09/29/18 [History Confirmed 01/09/22] cholecalciferol (vitamin D3) 50 mcg (2,000 unit) tablet (Vitamin D3) 2,000 unit PO DAILY 10/28/19 [History Confirmed 01/09/22] hydrocodone 10 mg-acetaminophen 325 mg tablet 1 tab PO Q4H PRN #60 tab 11/01/19 [Rx Confirmed 01/09/22] gabapentin 800 mg tablet 800 mg PO PRN PRN 12/04/21 [History Confirmed 01/09/22] folic acid 800 mcg tablet 0.8 mg PO DAILY 01/09/22 [History Confirmed 01/09/22] metaxalone 800 mg tablet 800 mg PO BID PRN 01/09/22 [History Confirmed 01/09/22] prochlorperazine maleate 5 mg tablet 5 mg PO AC 01/09/22 [History Confirmed 01/09/22] zolpidem 10 mg tablet 10 mg PO BEDTIME 01/09/22 [History Confirmed 01/09/22] Visit Medications (administered) Generic Name Dose Route Start Last Admin Trade Name Freq PRN Reason Stop Dose Admin Hydrocodone Bitart/Acetaminophen 1 tab 01/09/22 20:00 01/09/22 22:18 Hydrocodone/Acet 10/325 Tablet PO Not Given Q8HR ALDO Diltiazem HCl 30 mg 01/09/22 18:00 01/09/22 18:10 Diltiazem 30 Mg Tablet PO 30 mg Q6HR ALDO Administration Gabapentin 800 mg 01/09/22 22:45 01/09/22 22:55 Gabapentin 400 Mg Capsule PO 800 mg TID ALDO Administration Diltiazem HCl 125 mg/ Dextrose 125 mls @ 5 mls/hr 01/09/22 13:40 01/09/22 14:40 IV 0 mg/hr TITRATE ALDO 0 mls/hr Titration Protocol 5 MG/HR Exam Vital Signs (past 8 hours): - 01/09/22 16:02 01/09/22 18:10 01/09/22 19:40 Temperature 98.7 F 97.2 F L Pulse Rate 103 H 103 H 80 Respiratory Rate 16 20 Blood Pressure 129/87 129/87 113/60 Pulse Oximetry 94 94 01/09/22 20:02 Temperature Pulse Rate Respiratory Rate Blood Pressure Pulse Oximetry 96 Oxygen Delivery Method Room Air Oxygen Flow Rate 0 Objective Labs Result Diagrams: 01/09/22 13:00 01/09/22 13:00 Labs: Laboratory Results - last 24 hr 01/09/22 01/09/22 01/09/22 13:00 13:00 14:52 WBC 13.2 H RBC 3.90 L Hgb 12.7 Hct 38.8 MCV 99.3 MCH 32.6 MCHC 32.8 RDW 15.3 H Plt Count 326 Neut % (Auto) 77.8 H Lymph % (Auto) 11.0 L [place] % (Auto) 9.8 Eos % (Auto) 0.9 L Baso % (Auto) 0.5 Neut # (Auto) 12696 H Lymph # (Auto) 1500 [place] # (Auto) 1300 H Eos # (Auto) 100 Baso # (Auto) 100 Sodium 136 L Potassium 3.7 Chloride 100 Carbon Dioxide 31 BUN 7 Creatinine 0.53 Estimated GFR > 60 BUN/Creatinine Ratio 13.2 Glucose 108 Calcium 8.4 Magnesium 1.6 Total Bilirubin 0.7 AST 20 ALT 10 Alkaline Phosphatase 59 Total Creatine Kinase 23 L CK-MB (CK-2) TNP CK-MB (CK-2) Rel Index TNP Troponin I 0.156 H* Total Protein 5.8 L Albumin 3.2 L Globulin 2.6 Albumin/Globulin Ratio 1.2 Lipase 22 L SARS-CoV-2 (PCR) Negative 01/09/22 16:23 WBC RBC Hgb Hct MCV MCH MCHC RDW Plt Count Neut % (Auto) Lymph % (Auto) [place] % (Auto) Eos % (Auto) Baso % (Auto) Neut # (Auto) Lymph # (Auto) [place] # (Auto) Eos # (Auto) Baso # (Auto) Sodium Potassium Chloride Carbon Dioxide BUN Creatinine Estimated GFR BUN/Creatinine Ratio Glucose Calcium Magnesium Total Bilirubin AST ALT Alkaline Phosphatase Total Creatine Kinase CK-MB (CK-2) CK-MB (CK-2) Rel Index Troponin I 0.150 H* Total Protein Albumin Globulin Albumin/Globulin Ratio Lipase SARS-CoV-2 (PCR) Assessment & Plan Assessment and plan (1) Atrial fibrillation with RVR: Problem details: TSH was normal during previous hospitalization Status: Acute Plan: -Diltiazem/apixaban as per bedside team
[2022-01-10] VITALS (14 sets, daily range): BP systolic 100–121; BP diastolic 55–64; PULSE 73–102; RESP 15–21; TEMP 36.6–37.4; O2SAT 92–98
[2022-01-10] MEDS: dilTIAZem 30 MG TABLET PO ×2 (00:15→06:42)
[2022-01-10] MEDS: HYDROCODONE/ACET 10/325 TABLET 1 TAB PO ×4 (06:43→21:37)
[2022-01-10] MEDS: PANTOPRAZOLE DR 40 MG TABLET PO (06:44)
[2022-01-10 06:45] LABS: BUN Creatinine Ratio 7.9 (6-22); Blood Urea Nitrogen 3 mg/dL (7-17); Calcium 7.9 mg/dL (8.4-10.2); Carbon Dioxide 29 mmol/L (22-32); Chloride 100 mmol/L (98-107); Estimated Glomerular Filt Rate > 60 mL/min (>60); Glucose 79 mg/dL (80-110); HEMOLYSIS < 15 (0-50); Magnesium 1.7 mg/dL (1.6-2.3); Phosphorous 3.1 mg/dL (2.8-4.1); Potassium 3.4 mmol/L (3.4-5.1); Sodium 134 mmol/L (137-145)
[2022-01-10 06:49] LABS: Add Manual Diff / Slide Review NO; Basophils Absolute Auto 0 /uL (0-100); Basophils Percent Auto 0.3 % (0-2); Eosinophils Absolute Auto 200 /uL (0-450); Eosinophils Percent Auto 2.4 % (2-4); Hematocrit 33.2 % (36-46); Hemoglobin 11.1 g/dL (12.0-16.0); Lymphocytes Absolute Auto 2100 /uL (1100-4500); Lymphocytes Percent Auto 22.7 % (25-40); Mean Corpuscular HGB Conc 33.4 % (30-36); Mean Corpuscular Hemoglobin 32.9 PG (26-34); Mean Corpuscular Volume 98.7 fL (80-100); Monocytes Absolute Auto 900 /uL (0-900); Monocytes Percent Auto 9.7 % (3-14); Neutrophils Absolute Auto 6000 /uL (1500-7000); Neutrophils Percent Auto 64.9 % (50-75); Platelet Count 324 X10^3/uL (150-400); Red Blood Cell Count 3.36 X10^6/uL (4.0-5.2); Red Cell Distribution Width 15.1 % (11.6-14.8); White Blood Cell Count 9.3 X10^3/uL (4.5-11.0)
[2022-01-10] MEDS: CYCLOBENZAPRINE 10 MG TABLET 5 MG PO ×2 (09:03→20:26)
[2022-01-10] MEDS: APIXABAN 5 MG TABLET 2.5 MG PO ×2 (09:03→21:37)
[2022-01-10] MEDS: GABAPENTIN 400 MG CAPSULE 800 MG PO ×3 (09:04→21:36)
[2022-01-10] MEDS: CHOLECALCIFEROL (VITAMIN D3) 1,000 UNIT TABLET 2000 UNIT PO (09:04)
--- NOTE | 2022-01-10 09:11 | CM.DPC ---
Addendum entered by Coreen Anguiano R.N. 01/10/22 14:28: Updated patient about [facility]. She stated, I don't know how I can go there if I can't walk. Let her know that if the hospitalist feels that she's medically ready, she can go tomorrow, for the facility will work with her. Confirmed with Lauren at [facility] that she could not accept until Friday, since she has too many admissions. Then, patient indicated, I would rather go across the street. Let her know that there are no current availabilities. Asked her if she wanted this DC operations planner to update spouse, since he is out of town, and she stated no, no need to just get him stressed out. Spouse is supposed to be home this weekend. At this time, [facility] is where patient will be going, with mixing picker tender time scheduled for 12:15, as long as she is deemed medically stable. Addendum entered by Coreen Anguiano R.N. 01/10/22 14:21: Pricilla called back and confirmed acceptance for tomorrow. She will be able to go under COVID waiver. Have waiver here, will have hospitalist sign. PASSR completed. Patient to be updated. Pricilla had called patient's to ask about an oncology med that she has not been on for a while, due to expense of medication if she needed to still be on it. Will update hospitalist and have him sign waiver. Addendum entered by Coreen Anguiano R.N. 01/10/22 13:04: Confirmed with Taina in [place], that patient is currently under observation status. Updated Pricilla at [facility], and faxed her over today's P.T. note (recommending skilled), and inquired if COVID waiver can be used. She will discuss with her DNS and let this DC Product Safety Specialist know. She wants to make sure that she has enough to skill patient on. Faxed her over vaccination information as well. Will also follow up with [facility]. Addendum entered by Coreen Anguiano R.N. 01/10/22 12:36: Spoke to Pricilla at [facility]. She is reviewing, and would like therapy notes when completed. Let her know that patient status is pending, inpatient versus observation, and will continue to keep her updated. Verified that she does have beds available. Addendum entered by Coreen Anguiano R.N. 01/10/22 11:12: Left a message with Pricilla at [facility] to review, and faxed her clinical information. Called Lauren at [facility], and she will also review. P.T. is currently pending. Original Note: DCP Cont: Met with patient in her room. Introduced self and role. Patient pleasant, she has been here before, remembers this DC Product Safety Specialist. Patient came in with weakness, SOB. Patient has afib with RVR. Read MONIQUE Tello, notes regarding caregivers concerns about patient going home due to her medical instability. Confirmed with patient that she has a multimedia manager private caregiver named Angelia. Her spouse, Rajendra, also resides with patient, but is currently out of town. Asked patient about going home versus skilled rehab, if she qualifies. Patient indicated, she wants to see how she does with therapy, if she can't walk, she might need rehab. Will also have to see if patient meets criteria for inpatient as well. Asked patient if she had choice of custodial, will be bringing her a Medicare Choice List. She indicated, she has been to [facility] before, but would also consider going across the street, [facility]. P: DCP to continue to follow. Will see how she does with P.T, and may start the referral process for skilled, and will bring Medicare Choice List. Coreen Anguiano RN/Cosmetologist Apprentice
--- NOTE | 2022-01-10 10:47 | PT.IIE ---
Current Diagnoses Unspecified atrial fibrillation (01/09/22) Medical History (Last Reviewed 01/09/22 @ 23:05 by Jean Contreras MD) GERD (gastroesophageal reflux disease) Peripheral edema Rheumatoid arthritis Physical Therapy Inpatient Evaluation/Re-Eval M1 PT/OT-IP Prior Functional Status Start: 01/10/22 12:35 Freq: NEEDED Status: Active Protocol: Document 01/10/22 10:47 AB (Rec: 01/10/22 12:46 AB [id number]) Medical Review Prior Functional Status Medical History Reviewed Yes Communication able to make needs known Mobility and Gait pt stated that she is modified independent with all mobilities and ambulation using 4WW Activities of Daily Living and IADL's has caregivers that assist her with shower needs Social History Household Members spouse Living Arrangements House Number of Floors (Floors) One Floor Number of Stairs To Enter/Railing? ramp to enter Home Environment Standard Height Toilet,Ramp Home Equipment Front Wheel Walker,Four Wheel Walker,Straight Cane,Manual Wheelchair,Bedside Commode, Raised Toilet Seat w/Armrests, Shower Seat without Backrest, Hand Held Shower,Grab Bars Near Toilet,Grab Bars In Shower Additional Social History Comment pt has a caregiver that comes in 5x /week from 9 am to 2 pm; spouse assist her when caregivers are not around pt has a walk in tub shower with seat M2 PT-IP Current Condition Start: 01/10/22 12:35 Freq: NEEDED Status: Active Protocol: Document 01/10/22 10:47 AB (Rec: 01/10/22 12:46 AB [email or web address]) Physical Therapy Current Condition Current Condition Evaluation Date 01/10/22 Treatment Diagnosis A-fib; difficulty in walking Onset Date 01/09/22 M3 PT-IP Subjective Start: 01/10/22 12:35 Freq: NEEDED Status: Active Protocol: Document 01/10/22 10:47 AB (Rec: 01/10/22 12:46 AB [email or web address]) Subjective Physical Therapy Visit Type Type Initial Evaluation Visit Start Time 10:47 Visit Stop Time 11:16 Total Visit Minutes 29 Number of PICKER MACHINE OPERATOR Visits 0 Physical Therapy Visit Comments Patient Comments agreeable to do PT M4 PT-IP Mobility and Gait Start: 01/10/22 12:35 Freq: NEEDED Status: Active Protocol: Document 01/10/22 10:47 AB (Rec: 01/10/22 12:46 AB [email or web address]) PT-Bed Mobility Assessment Supine to Sit Supine to Sit Moderate Assistance,1 Person Assistance,Head of Bed Elevated,Bedrails Scooting Scooting to Edge of Bed Moderate Assistance,Maximum Assistance PT-Transfer Assessment Sit to and From Stand Sit to and from Stand Maximum Assistance,1 Person Assistance,Use of Upper Extremities Equipment Transfer Assistive Device Gait Belt,Front Wheeled Walker Orthotic/Prosthetic Devices or Brace: No Transfers Transfer Destination Chair Transfer Technique Stand Step Pivot Transfer Ability Level of Assist Maximum Assistance,1 Person Assistance,Use of Upper Extremities Comments Mobility Comments BP in supine: 109/48. completed supine to sit mod A and cues with HOB elevated. able to sit on EOB CGA. BP: 126/56. completed sit to stand max A and cues and completed step transfer using FWW max A and max cues. (+) UE tremors. unsteady standing. pt stated that she cannot do any more activities. HR elevated: 133-209. O2 sat: 97%. positioned pt on the chair. call light and table placed within reach. Gait Assessment Comments Gait Comments unable at this time PT-Balance Assessment Sitting Balance and Reactions Static Sitting Balance Ability Fair Dynamic Sitting Balance Ability Fair Standing Balance and Reactions Static Standing Balance Ability Poor Dynamic Standing Balance Ability Poor Device Used FWW M5 PT-IP Objective Assessments Start: 01/10/22 12:35 Freq: NEEDED Status: Active Protocol: Document 01/10/22 10:47 AB (Rec: 01/10/22 12:46 AB [email or web address]) Orientation Orientation/Cognition Level of Alertness Alert Orientation Name,Place,Situation Language Function Ability No Deficits Noted Safety Awareness Decreased Safety Awareness Memory Description No Deficits Noted Strength Lower Extremity Strength Assessment Bilaterally Impaired Hip 3+/5 Knee 3+/5 Sensation Assessment Sensation Gross Sensation WNL Muscle Tone Muscle Tone WNL Yes M6 PT-IP Treatment Start: 01/10/22 12:35 Freq: NEEDED Status: Active Protocol: Document 01/10/22 10:47 AB (Rec: 01/10/22 12:46 AB [email or web address]) Physical Therapy Treatment Education Education Provided Safety M7 PT-IP Assessment and Plan Start: 01/10/22 12:35 Freq: NEEDED Status: Active Protocol: Document 04/28/22 10:47 AB (Rec: 01/10/22 12:46 AB [id number]) PT Summary Assessment and Plan Potential Rehabilitation Potential Fair Status of Condition at Evaluation Evolving Summary Impairments Pain,ROM,Strength,Balance, Coordination,Sensation,Tone, Cognition,Bed Mobility, Transfers,Gait,Activity Tolerance Assessment Summary pt requiring max A with mobility using FWW with increase HR with activity to ~ 133-209 after transferring to chair from bed and pt c/o fatigue. pt needs to be more functional than current level and will require SNF rehab at this time. will continue to assess progress. Goals Bed Mobility Goal Standby Assistance Transfer Goal Standby Assistance,Front Wheeled Walker Gait Goal Standby Assistance,Front Wheel Walker Gait Distance 50 Other Goals improve ambulation using 4WW 100 ft SBA Days to Meet Goals 10 Frequency of Treatment Frequency Of Treatment Once a Day Treatment Plan Physical Therapy Treatment Plan Bed Mobility Training,Transfer Training,Gait Training, Therapeutic Exercise,Balance Retraining,Discharge Planning, Hot or Cold Pack,Neuromuscular Re-ed,Coordination Retraining Recommendations To Nursing Amount of Assist Needed 1 Person Assist Discharge Recommendations PT Discharge Recommendations SNF Rehab Transportation Needs at Discharge Wheelchair/Cabulance
--- NOTE | 2022-01-10 12:57 | PM.PN.1 ---
Subjective Subjective Interval history: The patient reports feeling better this morning, in regards to her lightheadedness and palpitations. IV diltiazem was weaned off with the help of PO diltiazem. PT/OT evaluation today and patient is OK with SNF if needed. Exam Vital Signs (past 8 hours): - 01/10/22 06:42 01/10/22 08:50 Pulse Rate 74 Blood Pressure 101/56 L Pulse Oximetry 92 Oxygen Delivery Method Room Air Oxygen Flow Rate 0 Narrative Exam Narrative: Const Other: Patient laying in bed comfortably upon my entering the room, in no apparent acute distress, with her caregiver at bedside Eyes Other: No scleral icterus appreciated Resp Other: Lungs clear to auscultation bilaterally Cardio Other: Tachycardic rate with irregular rhythm, S1 and S2 heart sounds normal, with no extra heart sounds appreciated, or murmurs GI Other: Soft, non-distended, non-tender, bowel sounds present Skin Other: No grossly abnormal skin lesions noted Extrem Other: Ulnar deviation of bilateral hands noted, with palpable dorsalis pedis bilaterally, no peripheral edema noted Objective Labs Result Diagrams: 01/10/22 06:06 01/10/22 06:06 Labs: Laboratory Results - last 24 hr 01/09/22 01/09/22 01/09/22 13:00 13:00 14:52 WBC 13.2 H RBC 3.90 L Hgb 12.7 Hct 38.8 MCV 99.3 MCH 32.6 MCHC 32.8 RDW 15.3 H Plt Count 326 Neut % (Auto) 77.8 H Lymph % (Auto) 11.0 L [place] % (Auto) 9.8 Eos % (Auto) 0.9 L Baso % (Auto) 0.5 Neut # (Auto) 97628 H Lymph # (Auto) 1500 [place] # (Auto) 1300 H Eos # (Auto) 100 Baso # (Auto) 100 Sodium 136 L Potassium 3.7 Chloride 100 Carbon Dioxide 31 BUN 7 Creatinine 0.53 Estimated GFR > 60 BUN/Creatinine Ratio 13.2 Glucose 108 Calcium 8.4 Phosphorus Magnesium 1.6 Total Bilirubin 0.7 AST 20 ALT 10 Alkaline Phosphatase 59 Total Creatine Kinase 23 L CK-MB (CK-2) TNP CK-MB (CK-2) Rel Index TNP Troponin I 0.156 H* Total Protein 5.8 L Albumin 3.2 L Globulin 2.6 Albumin/Globulin Ratio 1.2 Lipase 22 L SARS-CoV-2 (PCR) Negative 01/09/22 01/10/22 01/10/22 16:23 06:06 06:06 WBC 9.3 RBC 3.36 L Hgb 11.1 L Hct 33.2 L MCV 98.7 MCH 32.9 MCHC 33.4 RDW 15.1 H Plt Count 324 Neut % (Auto) 64.9 Lymph % (Auto) 22.7 L [place] % (Auto) 9.7 Eos % (Auto) 2.4 Baso % (Auto) 0.3 Neut # (Auto) 6000 Lymph # (Auto) 2100 [place] # (Auto) 900 Eos # (Auto) 200 Baso # (Auto) 0 Sodium 134 L Potassium 3.4 Chloride 100 Carbon Dioxide 29 BUN 3 L Creatinine 0.38 L Estimated GFR > 60 BUN/Creatinine Ratio 7.9 Glucose 79 L Calcium 7.9 L Phosphorus 3.1 Magnesium 1.7 Total Bilirubin AST ALT Alkaline Phosphatase Total Creatine Kinase CK-MB (CK-2) CK-MB (CK-2) Rel Index Troponin I 0.150 H* Total Protein Albumin Globulin Albumin/Globulin Ratio Lipase SARS-CoV-2 (PCR) [facility] Medical History (Updated 01/09/22 @ 23:07 by Jean Contreras MD) GERD (gastroesophageal reflux disease) Peripheral edema Rheumatoid arthritis Surgical History History of hand surgery History of total left knee replacement History of total right knee replacement Status post total hip replacement, left Status post wrist surgery Family History Mother No problems noted. Father No problems noted. Social History household members: spouse Smoking Status: Never smoker alcohol intake: current Assessment & Plan Assessment & Plan narrative: Assessment: 1. Atrial fibrillation with RVR 2. Myocardial injury, likely due to a fib with RVR 3. Hx of rheumatoid arthritis, stable 4. GERD 5. Osteoporosis Plan: 1. Telemetry on-board. IV diltiazem weaned off with help of PO diltiazem, and now on PO diltiazem CD 120 mg daily. Anticoagulation with Eliquis 2.5 mg bid, given age > 80 and weight < 60 kg. Echocardiogram results pending. 2. Troponin elevation likely from supply/demand mismatch from a fib with RVR. Will trend until downtrending. 3. Outpatient methotrexate and daily prednisone were discontinued by managing physician approximately 2 months ago. 4. Will continue home PPI. 5. Outpatient management to continue with zolendronc acid. VTE prophylaxis: James, as above Time Spent With Patient Critical Care time: I spent a total of [] minutes of critical care time on this patient's care today; this time is exclusive of procedural time.
--- NOTE | 2022-01-10 14:46 | OT.IPNOTE ---
Pt not wanting to get up at this time as too tired. To check on pt tomorrow for OT eval.
[2022-01-10] MEDS: dilTIAZem CD 120 MG CAP PO (16:11)
[2022-01-11] VITALS (14 sets, daily range): BP systolic 104–136; BP diastolic 63–88; PULSE 81–116; RESP 13–26; TEMP 36.7–37.5; O2SAT 92–95
[2022-01-11] MEDS: HYDROCODONE/ACET 10/325 TABLET 1 TAB PO ×4 (02:55→20:22)
[2022-01-11 06:02] LABS: Add Manual Diff / Slide Review NO; Basophils Absolute Auto 100 /uL (0-100); Basophils Percent Auto 0.8 % (0-2); Eosinophils Absolute Auto 100 /uL (0-450); Eosinophils Percent Auto 1.2 % (2-4); Hematocrit 34.7 % (36-46); Hemoglobin 11.4 g/dL (12.0-16.0); Lymphocytes Absolute Auto 1500 /uL (1100-4500); Lymphocytes Percent Auto 12.9 % (25-40); Mean Corpuscular HGB Conc 32.9 % (30-36); Mean Corpuscular Hemoglobin 32.5 PG (26-34); Mean Corpuscular Volume 98.8 fL (80-100); Monocytes Absolute Auto 900 /uL (0-900); Monocytes Percent Auto 7.6 % (3-14); Neutrophils Absolute Auto 8900 /uL (1500-7000); Neutrophils Percent Auto 77.5 % (50-75); Platelet Count 318 X10^3/uL (150-400); Red Blood Cell Count 3.51 X10^6/uL (4.0-5.2); Red Cell Distribution Width 14.9 % (11.6-14.8); White Blood Cell Count 11.4 X10^3/uL (4.5-11.0)
[2022-01-11 06:12] LABS: BUN Creatinine Ratio 13.3 (6-22); Blood Urea Nitrogen 6 mg/dL (7-17); Calcium 8.4 mg/dL (8.4-10.2); Carbon Dioxide 29 mmol/L (22-32); Chloride 99 mmol/L (98-107); Estimated Glomerular Filt Rate > 60 mL/min (>60); Glucose 104 mg/dL (80-110); HEMOLYSIS < 15 (0-50); Magnesium 1.6 mg/dL (1.6-2.3); Phosphorous 3.6 mg/dL (2.8-4.1); Potassium 3.6 mmol/L (3.4-5.1); Sodium 132 mmol/L (137-145)
--- NOTE | 2022-01-11 06:21 | PC.NURSE ---
0600- Patient is in mostly Sinus tachycardia with frequent PAC. Tolerating well. Intermitted AFib still present. Will monitor.
[2022-01-11] MEDS: PANTOPRAZOLE DR 40 MG TABLET PO (06:27)
[2022-01-11] MEDS: dilTIAZem CD 120 MG CAP PO (08:22)
[2022-01-11] MEDS: CHOLECALCIFEROL (VITAMIN D3) 1,000 UNIT TABLET 2000 UNIT PO (08:22)
[2022-01-11] MEDS: GABAPENTIN 400 MG CAPSULE 800 MG PO ×3 (08:22→20:23)
[2022-01-11] MEDS: APIXABAN 5 MG TABLET 2.5 MG PO ×2 (08:22→20:22)
--- NOTE | 2022-01-11 09:24 | CM.DPC ---
Addendum entered by Coreen Anguiano R.N. 01/11/22 13:24: Spoke to Angelia, she is aware [facility] may be where patient needs to go first. Have not yet heard back from Keshia at [facility]. Angelia is going there to secure her room with deposit. Updated plan with Pricilla at [facility]. She knows Keshia at [facility], and has worked with them before. Pricilla is still unsure if she will have an admission nurse tomorrow. Addendum entered by Coreen Anguiano R.N. 01/11/22 12:51: Patient's spouse, Azam, called back. He was pleasant. Confirmed that he and his son had worked on getting patient to [facility], due to her increased needs. Did let spouse know, and had to clarify with him that is is not a rehab, is an assisted living, and she would not be getting the daily rehab like she would get at a intermediate facility, and that patient may need to be more medically stable before going there. Azam indicated, that's good to know, I had no idea. He is comfortable with patient going to [facility] first, if this is what is needed. Will need to update Pricilla at [facility] on the plan after rehab. Did leave a message with Angelia on her cell, so she is aware of the differences of facilities, at spouse's request. Addendum entered by Coreen Anguiano R.N. 01/11/22 12:34: Met with patient's caregiver, Angelia, who is at bedside. She gave her cell number as contact. Her number is: [phone]. Patient wants Angelia to be part of conversation, since she is her main caregiver. Patient has Angelia every day at home while spouse is gone, and spouse is to be returning Friday. Let Angelia know that yesterday, she was reluctant to have this DC Enlisted Advisor call spouse, due to concerns about stressing him out. Angelia stated, he would want to be updated. Asked patient again in front of her caregiver if this DC Enlisted Advisor can call for updates and additional information, and she stated yes. Angelia informed this DC Enlisted Advisor that they have secured a room at [facility]. The digital marketing consultant is Keshia. The main number at the facility is: [phone]. Keshia's cell phone number is: [phone]. Left a message for Keshia to call, to find out what criteria is needed to accept patient directly from here, or if skilled should be done first prior to moving there. Left message for spouse, Rajendra, to also call back this DC Enlisted Advisor. Patient has not yet been able to work with therapy due to heart rate. Patient may need to be more stable before going directly to assisted living, but will await call back from Keshia. If no response later today, will call her cell phone. [facility] is still working on getting staff to do admission for tomorrow if she is ready. Addendum entered by Coreen Anguiano R.N. 01/11/22 11:54: Confirmed with Taina in [place] that patient is inpatient as original order, 01/09. She would be eligable by Medicare standards for skilled by 01/12, tomorrow. Spoke to Pricilla at [facility]. She indicated, she will have to see if she can get a nurse to do admissions tomorrow, will update this DC Enlisted Advisor. At this time, is uncertain if patient will be medically ready for discharge by tomorrow, but this DC Enlisted Advisor will also update Pricilla. Sundays they have no transportation available. Original Note: DCP Cont: Patient was going to be picked up today by [facility] at 12:15, but Dr. Harper indicated, she is back in a-fib with RVR, and is on a diltiazem drip. Called Pricilla at [facility] and left her a message, asking her to cancel continuous pickling line pickler for today, but possibly to go tomorrow. Did update Taina in [place], and she may now be able to make patient inpatient. P: DCP to continue to follow. Plan is [facility], possibly tomorrow, but would still need to go on COVID waiver. [facility] could also accept (patient's preference), but not until Friday. Coreen Anguiano RN/Loaders
--- NOTE | 2022-01-11 09:43 | PC.NURSE ---
Assess- Patient is alert and oriented x3, she states that her arm and back pain is 10/10. Given 10mg of po vicodin and reassessed an hour later and pain down to 6/10. Patients hear rate, irregular and her tele readings are afib, rvr. Heart is going up to 156 at times and sustaining in the 120s. 30mg of diltiazem given this am and this did not help her rate go down. Dr. Harper just into see patient and he wants to change her status to ICU and restart her diltiazem drip. Fox, RN will be taking this patient shortly, will give her report.
[2022-01-11] MEDS: dilTIAZem 125 MG in DEXTROSE 5 % IN WATER 100 ML IV (10:12)
--- NOTE | 2022-01-11 10:28 | OT.IPNOTE ---
Per Hospitalist pt in RVR and not medically appropriate for OT eval today, to check on pt tomorrow.
--- NOTE | 2022-01-11 10:45 | PT-IP ANOTE ---
OT reports to PT: per Hospitalist pt in RVR and not medically appropriate for PT today, to check on pt tomorrow.
--- NOTE | 2022-01-11 14:19 | CM.DPC ---
Addendum entered by Coreen Anguiano R.N. 01/11/22 15:25: Called Mayra at [facility] to see if they do weekend admissions, in case [facility] can't get an admission nurse tomorrow, in case patient is medically ready. Mayra stated that they do have an admission nurse tomorrow, should patient be medically ready, and will look at referral. Patient has not yet worked with P.T. secondary to a-fib, so she may not be ready, but attempting a plan B in case [facility] can't accept. Faxed her over face sheet, H&P, med sheets. Let her know that therapy is pending. Original Note: DCP Cont: Did ask Lauren at [facility] if she could take admissions this week-end, if patient is medically ready, and if [facility] does not have the staff, but she still confirmed, no admissions until Friday. Have not yet heard back from Pricilla at [facility] to see if they can admit tomorrow, Friday, if patient is medically ready. P: DCP to continue to follow. Plan is for [facility], and [facility] also has referral. It is uncertain if [facility] will be able to get admission nurse tomorrow, Friday, and [facility] has no admissions until Friday. Patient is also to be going to [facility]. Coreen Anguiano RN/Roll Wrapper
[2022-01-11] MEDS: MAGNESIUM CHLORIDE 64 MG TABLET 128 MG PO (14:43)
--- NOTE | 2022-01-11 15:30 | DIET.CONS ---
Dietary Consultation Note Admission Date: 01/09/2022 14:08 Assessment: 81 y/o F admitted with SOB and dizziness. RD consulted for low BMI. In review of previous admission RD notes and discussion with pt, this is her usual BMI. Wt has actually increased since last admission by 1.6kg. Good PO. Offered easy chew since this was the intervention from last visit (was not using upper denture-- not currently the case). Denies any issue with food texture and PO. Ht: 167.64 cm Wt: 57.1 kg BMI: 20.3 UBW: Last BM: 01/08/22 (01/09/22 15:45) MNA: 9 Darnell Score: 18 Diet: 01/09/22 Dinner Heart Healthy Diet Diet Modifications: Nutrition Percent Meal Consumed 75% 01/11/22 14:00 Percent Meal Consumed 40 01/11/22 10:41 Percent Meal Consumed 50% 01/10/22 18:00 Percent Meal Consumed 50% 01/10/22 13:40 Percent Meal Consumed 75% 01/10/22 10:30 Percent Meal Consumed 50% 01/09/22 18:10 Labs: RBC 3.51 X10^6/uL (4.0-5.2) L 01/11/22 05:47 Hgb 11.4 g/dL (12.0-16.0) L 01/11/22 05:47 Hct 34.7 % (36-46) L 01/11/22 05:47 Creatinine 0.45 mg/dL (0.52-1.04) L 01/11/22 05:47 Nutrition Diagnosis: None at this time Interventions: none Monitoring/Evaluations: consult prn Electronically Signed by: Haley Obrien 01/11/22 15:30 Clinical Dietitian [address] [address]
--- NOTE | 2022-01-11 16:57 | P.PN_ITS ---
Subjective Subjective Interval history: Patient endorses feeling racing heart sometimes, and her HR on monitor does go up to 120-130. She denies any issues with PO intake, or with urination/defecation. Exam Vital Signs (past 8 hours): - 01/11/22 11:00 01/11/22 12:00 01/11/22 13:00 Pulse Rate 107 H 99 H 95 H Respiratory Rate 17 20 26 H Blood Pressure 120/82 124/71 121/88 Pulse Oximetry 01/11/22 14:00 01/11/22 15:00 01/11/22 16:00 Pulse Rate 91 H 89 88 Respiratory Rate 17 26 H 17 Blood Pressure 114/81 118/63 126/76 Pulse Oximetry 94 Oxygen Delivery Method Room Air Oxygen Flow Rate 0 Narrative Exam Narrative: Const Other: Patient laying in bed comfortably upon my entering the room, in no apparent acute distress, with her caregiver at bedside Eyes Other: No scleral icterus appreciated Resp Other: Lungs clear to auscultation bilaterally Cardio Other: Tachycardic rate with irregular rhythm, S1 and S2 heart sounds normal, with no extra heart sounds appreciated, or murmurs GI Other: Soft, non-distended, non-tender, bowel sounds present Skin Other: No grossly abnormal skin lesions noted Extrem Other: Resting tremor noted, with ulnar deviation of bilateral hands noted, with palpable dorsalis pedis bilaterally, no peripheral edema noted Objective Labs Result Diagrams: 01/11/22 05:47 01/11/22 05:47 Labs: Laboratory Results - last 24 hr 01/11/22 01/11/22 05:47 05:47 WBC 11.4 H RBC 3.51 L Hgb 11.4 L Hct 34.7 L MCV 98.8 MCH 32.5 MCHC 32.9 RDW 14.9 H Plt Count 318 Neut % (Auto) 77.5 H Lymph % (Auto) 12.[address] [place] % (Auto) 7.6 Eos % (Auto) 1.2 L Baso % (Auto) 0.8 Neut # (Auto) 8900 H Lymph # (Auto) 1500 [place] # (Auto) 900 Eos # (Auto) 100 Baso # (Auto) 100 Sodium 132 L Potassium 3.6 Chloride 99 Carbon Dioxide 29 BUN 6 L Creatinine 0.45 L Estimated GFR > 60 BUN/Creatinine Ratio 13.3 Glucose 104 Calcium 8.4 Phosphorus 3.6 Magnesium 1.6 PFSH Medical History (Updated 01/09/22 @ 23:07 by Jean Contreras MD) GERD (gastroesophageal reflux disease) Peripheral edema Rheumatoid arthritis Surgical History History of hand surgery History of total left knee replacement History of total right knee replacement Status post total hip replacement, left Status post wrist surgery Family History Mother No problems noted. Father No problems noted. Social History household members: spouse Smoking Status: Never smoker alcohol intake: current Assessment & Plan Assessment & Plan narrative: Assessment: 1. Atrial fibrillation with RVR 2. Myocardial injury, likely due to a fib with RVR 3. Hx of rheumatoid arthritis, stable 4. GERD 5. Osteoporosis Plan: 1. Telemetry on-board. IV diltiazem back on, with help of PO diltiazem 30 mg every 6 hours to help with wean off drip. Anticoagulation with Eliquis 2.5 mg bid, given age > 80 and weight < 60 kg. Echocardiogram unremarkable. 2. Troponin elevation likely from supply/demand mismatch from a fib with RVR. Will trend until downtrending. 3. Outpatient methotrexate and daily prednisone were discontinued by managing physician approximately 2 months ago. 4. Will continue home PPI. 5. Outpatient management to continue with zolendronc acid. VTE prophylaxis: Eliquis, as above Time Spent With Patient Critical Care time: I spent a total of [] minutes of critical care time on this patient's care today; this time is exclusive of procedural time.
[2022-01-11] MEDS: ONDANSETRON 4 MG/2 ML INJ IV (17:30)
[2022-01-11] MEDS: BISMUTH SUBSALICYLATE 525 MG/30 ML SUSP PO (17:34)
--- NOTE | 2022-01-11 18:23 | PC.NURSE ---
Pt noted to have low UOP this shift. Pt assisted up to BSC to void as she has been attempting to use bedpan all day and declining OOB. Pt voided 75 ML. Bladder scan done with greater than 700 ml noted in bladder. Called to Dr. Harper and reported findings. Orders received to place indwelling catheter for urinary retention .
[2022-01-11] MEDS: dilTIAZem 30 MG TABLET PO (18:24)
[2022-01-11] MEDS: CYCLOBENZAPRINE 10 MG TABLET 5 MG PO (20:23)
[2022-01-12] VITALS (24 sets, daily range): BP systolic 108–130; BP diastolic 56–91; PULSE 74–113; RESP 12–33; TEMP 36.3–36.8; O2SAT 91–95
[2022-01-12] MEDS: dilTIAZem 30 MG TABLET PO ×5 (00:29→23:36)
[2022-01-12] MEDS: HYDROCODONE/ACET 10/325 TABLET 1 TAB PO ×4 (04:03→21:51)
[2022-01-12 05:54] LABS: Magnesium 1.7 mg/dL (1.6-2.3)
[2022-01-12] MEDS: PANTOPRAZOLE DR 40 MG TABLET PO (06:13)
--- NOTE | 2022-01-12 07:55 | PM.PN.1 ---
Subjective Subjective Date Patient Seen: 01/12/22 Interval history: She is seen today to follow-up her atrial fibrillation, weakness and placement issues. She begins experiencing left-sided chest pain radiating to the left upper back during rounds and so this was treated with nitroglycerin. Her EKG showed no acute ST or T-wave changes. She has been accepted [facility] and will be going there in 2 days. Exam Vital Signs (past 8 hours): - 01/12/22 00:29 01/12/22 00:33 01/12/22 01:00 Temperature 97.9 F Pulse Rate 85 81 Respiratory Rate 18 Blood Pressure 113/56 L 113/56 L Pulse Oximetry 95 95 01/12/22 04:12 01/12/22 05:00 01/12/22 06:12 Temperature 97.9 F Pulse Rate 89 74 Respiratory Rate 18 Blood Pressure 126/65 126/65 Pulse Oximetry 93 94 Oxygen Delivery Method Room Air Oxygen Flow Rate 0 Narrative Exam Narrative: She is alert and oriented to her name. She seems somewhat distracted internally and very inward focused There is a medical genetics director standing next to her who she interacts confusingly with. Heart is irregularly irregular without murmur Lungs are clear to auscultation bilaterally Abdomen is soft, bowel sounds positive, no tenderness, no organomegaly Chest wall has no tenderness There is no ankle edema Objective Labs Result Diagrams: 01/11/22 05:47 01/11/22 05:47 Labs: Laboratory Results - last 24 hr 01/12/22 05:06 Magnesium 1.7 PFSH Medical History (Updated 01/09/22 @ 23:07 by Jean Contreras MD) GERD (gastroesophageal reflux disease) Peripheral edema Rheumatoid arthritis Surgical History History of hand surgery History of total left knee replacement History of total right knee replacement Status post total hip replacement, left Status post wrist surgery Family History Mother No problems noted. Father No problems noted. Social History household members: spouse Smoking Status: Never smoker alcohol intake: current Assessment & Plan Assessment & Plan narrative: Assessment: 1. Atrial fibrillation with RVR 2. Myocardial injury, likely due to a fib with RVR 3. Hx of rheumatoid arthritis, stable 4. GERD 5. Osteoporosis Plan: 1. Telemetry. Shortage of IV diltiazem so now on PO diltiazem 30 mg every 6 hours. Anticoagulation with Eliquis 2.5 mg bid, given age > 80 and weight < 60 kg. Echocardiogram unremarkable. 2. Troponin elevation likely from supply/demand mismatch from a fib with RVR. Will trend until downtrending. 3. Outpatient methotrexate and daily prednisone were discontinued by managing physician approximately 2 months ago. 4. Will continue home PPI. 5. Outpatient management to continue with zolendronc acid. VTE prophylaxis: Eliquis, as above She is pending placement to [facility] nursing [facility] in 2 days. Time Spent With Patient Critical Care time: I spent a total of [] minutes of critical care time on this patient's care today; this time is exclusive of procedural time.
--- NOTE | 2022-01-12 08:06 | CM.DPNOTE ---
DCP Note Spoke w/rep from [facility] yesterday afternoon at approx 1630; she had completed bedside assessment and requested clinical to complete this Patient has a room reserved at [facility] and facility is planning on admitting her after SNF stay This CLOTH GRADER SUPERVISOR asked if patient could be admitted directly to [facility] is SNF had not worked out for any reason? This was not a no but patient would need to improve medically and physically before this would be a realistic plan; would need to discuss w/[facility] team Friday if needed JW
[2022-01-12] MEDS: CHOLECALCIFEROL (VITAMIN D3) 1,000 UNIT TABLET 2000 UNIT PO (08:41)
[2022-01-12] MEDS: APIXABAN 5 MG TABLET 2.5 MG PO ×2 (08:41→21:51)
[2022-01-12] MEDS: MAGNESIUM CHLORIDE 64 MG TABLET 128 MG PO (08:43)
[2022-01-12] MEDS: GABAPENTIN 400 MG CAPSULE 800 MG PO ×3 (08:47→21:51)
--- NOTE | 2022-01-12 09:17 | OT.IP.EVAL ---
Current Diagnoses Unspecified atrial fibrillation (01/09/22) Past Medical History (Last Reviewed 01/09/22 @ 23:05 by Jean Contreras MD) GERD (gastroesophageal reflux disease) History of hand surgery History of total left knee replacement History of total right knee replacement Peripheral edema Rheumatoid arthritis Status post total hip replacement, left Status post wrist surgery Surgical History (Last Reviewed 01/09/22 @ 23:05 by Jean Contreras MD) History of hand surgery History of total left knee replacement History of total right knee replacement Status post total hip replacement, left Status post wrist surgery Occupational Therapy Inpatient Evaluation/Re-Eval M1 PT/OT-IP Prior Functional Status Start: 01/10/22 12:35 Freq: NEEDED Status: Active Protocol: Document 01/12/22 09:17 [facility] (Rec: 01/12/22 10:33 [facility] [id number]) Medical Review Prior Functional Status Medical History Reviewed Yes Communication able to make needs known Mobility and Gait pt stated that she is modified independent with all mobilities and ambulation using 4WW Activities of Daily Living and IADL's has caregivers that assist her with shower needs Pt has gotten weaker recently and now needing more assist with dressing and toileting needs Social History Household Members spouse Living Arrangements House Number of Floors (Floors) One Floor Number of Stairs To Enter/Railing? ramp to enter Home Environment Standard Height Toilet,Ramp Home Equipment Front Wheel Walker,Four Wheel Walker,Straight Cane,Manual Wheelchair,Bedside Commode, Raised Toilet Seat w/Armrests, Shower Seat without Backrest, Hand Held Shower,Grab Bars Near Toilet,Grab Bars In Shower Additional Social History Comment pt has a caregiver that comes in 5x /week from 9 am to 2 pm; spouse assist her when caregivers are not around pt has a walk in tub shower with seat M2 OT-IP Current Condition Start: 01/10/22 12:55 Freq: Status: Active Protocol: Document 01/12/22 09:17 [facility] (Rec: 01/12/22 10:33 [facility] [id number]) Occupational Therapy Current Condition Current Condition Evaluation Date 01/12/22 Treatment Diagnosis A-fib RVR Diagnosis Onset Date 01/09/22 M3 OT- IP Subjective and Pain Start: 01/10/22 12:55 Freq: Status: Active Protocol: Document 01/12/22 09:17 [facility] (Rec: 01/12/22 10:33 [facility] [id number]) OT- Subjective Occupational Therapy Visit Type Type Initial Evaluation Visit Start Time 09:17 Visit Stop Time 09:43 Total Visit Minutes 26 Occupational Therapy Visit Comments Patient Comments Pt's nurse states okay to work with pt and HR doing well this morning. Patient/Caregiver Goals TO get stronger and better. OT Pain Assessment Pain When Pain Assessed During Mobility Pain Present Pain Present Pain Reported M4 OT- IP ADL's Start: 01/10/22 12:55 Freq: Status: Active Protocol: Document 01/12/22 09:17 [facility] (Rec: 01/12/22 10:33 [facility] [id number]) OT [id number] Comments OT Self-Feeding Comments Pt given foam studio operation engineer to use to assist to manage utensils better as her hands are very arthritic. OT ADL-Grooming General Evaluation Areas Needing Assistance Retrieving/Set-up of Grooming Items Comments OT Grooming Comments Pt able to wash her face after set-up of wash cloth. OT ADL-Oral Care Comments Oral Care Comments NOt performed. OT ADL-Dressing General Eval Lower Body Dressing Ability Maximum Assistance Comments OT Dressing Comments Assist to slide her socks off her heels and assist to masoud socks at this time. OT ADL-Toileting General Evaluation Toileting Ability Total Assistance Comments OT Toileting Comments Mayo in place OT ADL-Bathing Bathing Type Bathing Type Sponge Bath General Evaluation Bathing Ability Moderate Assistance,Maximal Assistance Areas Needing Assistance Wash/Dry Back,Wash/Dry Perineal Area,Wash/Dry Lower Extremities Comments OT Bathing Comments Pt able to assist to get her face, chest, arms, top of her legs, and groin area while seated. M5 OT- IP IADL's Start: 01/10/22 12:55 Freq: Status: Active Protocol: Document 01/12/22 09:17 [facility] (Rec: 01/12/22 10:33 [facility] [id number]) OT-Instrumental Activities of Daily Living Home Safety Awareness Home Safety Comments Pt a bit forgetful and would need assist for all needs of safety, ADl's and mobility at this time. M6 OT- IP Functional Cognition Start: 01/10/22 12:55 Freq: Status: Active Protocol: Document 01/12/22 09:17 [facility] (Rec: 01/12/22 10:33 [facility] [id number]) Cognitive Factors Limiting Selfcare Function Cognitive Ability Level of Alertness Alert Patient Orientation Name,Place,Situation Attention Span Ability Capable of Focused Attention, Capable of Sustained Attention Ability to Follow Commands Able to Follow One Step Commands with Increased Time, Able to Follow One Step Commands with Repetition Memory Description Short Term Impaired Cognitive Comments Cognitive Assessment Comments Pt a bit forgetful and needing step by step cues for safety with FWW. OT- Vision and Hearing OT- Hearing Assessment OT- Hearing Assessment WFL OT- Vision Assessment Visual Acuity Glasses All The Time M7 OT- IP Mobility and Balance Start: 01/10/22 12:55 Freq: Status: Active Protocol: Document 01/12/22 09:17 [facility] (Rec: 01/12/22 10:33 [facility] [id number]) OT- Bed Mobility Assessment Supine to Sit Supine to Sit Assist Contact Guard Assistance Scooting Scooting to Edge of Bed Maximum Assistance,1 Person Assistance,Head of Bed Elevated,Bedrails OT-Transfer Assessment Sit to and From Stand Sit to and from Stand Moderate Assistance,2 Person Assistance Transfers Transfer Ability Moderate Assistance,1 Person Assistance,2 Person Assistance Technique Transfer Destination Bed,Bedside Commode,Chair Transfer Technique Stand Step Pivot Devices Transfer Assistive Devices Gait Belt,Front Wheeled Walker Comments Mobility Comments Pt able to get upright with HOB up with increased time and needing MAX AX1 to help scoot to the edge of the bed. MODA X 2 to stand form hi bed and assist to guide the FWW, balance, and help lower to the recliner at this time. OT- Balance Assessment Sitting Balance and Reactions Static Sitting Balance Ability Good Dynamic Sitting Balance Ability Fair Standing Balance and Reactions Static Standing Balance Ability Poor Dynamic Standing Balance Ability Poor M8 OT- IP Objective Assessments Start: 01/10/22 12:55 Freq: Status: Active Protocol: Document 01/12/22 09:17 [facility] (Rec: 01/12/22 10:33 [facility] [id number]) OT Gross Range of Motion Upper Extremity Range of Motion Assessment Bilaterally Impaired OT Strength Upper Extremity Strength Assessment Bilaterally Impaired OT- Coordination Assessment Comments Coordination Comments Pt has arthritic change in her hands and needing asisst for set-up for ADl needs. OT-Muscle Tone Assessment Muscle Tone WNL Yes M9 OT- IP Assessment and Plan Start: 01/10/22 12:55 Freq: Status: Active Protocol: Document 01/12/22 09:17 [facility] (Rec: 01/12/22 10:33 [facility] [id number]) OT Summary Assessment and Plan Potential Rehabilitation Potential Good Analytic Complexity at Evaluation Moderate Summary OT Impairments Pain,Range of Motion,Strength, Balance,Functional Cognition, Functional Mobility,Self- Feeding,Grooming,Dressing, Toileting,Bathing,Toilet Transfers,Shower Transfers, Activity Tolerance Progress Towards Goals Slow Progress due to Pain,Slow Progress due to Medical Issues,Slow Progress due to Activity Tolerance,Slow Progress due to Cognition Assessment Summary Pt MOD complexity and main barriers are decreased activity tolerance, balance, and now needing assist 1-2 person assist for all ADl and mobility needs. Pt fatigues quickly and needing rest break throughout tasks. Pt would benefit from skilled rehab prior to going home. Ptis cooperatiave and motivated to get better. Goals Dressing Goal Standby Assistance Toileting Goal Standby Assistance Bathing Goal Minimal Assistance Toilet Transfer Goal Independent Shower Transfer Goal Independent Days to Meet Goals 20 Frequency of Treatment Frequency Of Treatment Once a Day Treatment Plan OT Treatment Plan ADL Training,Functional Cognition Training,Functional Mobility,Patient/Family Education,Discharge Planning Other Treatment Recommendations and Next Transfer to [facility] with MODA x1 Treatment Focus and FWW. Discharge Recommendations OT Discharge Recommendations SNF Rehab Transportation Needs at Discharge Wheelchair/Cabulance
--- NOTE | 2022-01-12 10:02 | PC.NURSE ---
Addendum entered by Marisel Hall R.N. 01/12/22 10:39: ekg done. Dr. Duran has EKG. pain increased to 10/10. 1 dose SL NTG given and pain down to 6 out of 10. pt resting in chair. Original Note: Pt up in chair, holding her arm to her chest. Reports left low chest pain radiating to back. rates 4 out of 10 constant. Caregiver in room with pt. HR 96, Afib
[2022-01-12] MEDS: NITROGLYCERIN 0.4 MG SL TAB SL (10:21)
--- NOTE | 2022-01-12 10:24 | PT-IP ANOTE ---
checked with nurse this morning and stated that pt is ok to be seen for PT. checked on pt but pt still eating breakfast. checked back on pt after ~ 1 hour and pt is sitting on the chair. pt stated that she has chest pain right now and nurse is aware. talked with nurse. PT on hold for this morning due to chest pain. will f/u.
--- NOTE | 2022-01-12 11:34 | PC.NURSE ---
1021 BP 127/84, HR 101 CP 06/24 1033 117/62 108 02/22 1155 130/88 100 sleeping
[2022-01-12 11:40] LABS: Troponin I 0.027 ng/mL (0.01-0.034)
--- NOTE | 2022-01-12 13:20 | PT.IPTN ---
Current Diagnoses Unspecified atrial fibrillation (01/09/22) Physical Therapy Treatment Note M2 PT-IP Current Condition Start: 01/10/22 12:35 Freq: NEEDED Status: Active Protocol: Document 01/10/22 10:47 AB (Rec: 01/10/22 12:46 AB [id number]) Physical Therapy Current Condition Current Condition Evaluation Date 01/10/22 Treatment Diagnosis A-fib; difficulty in walking Onset Date 01/09/22 M3 PT-IP Subjective Start: 01/10/22 12:35 Freq: NEEDED Status: Active Protocol: Document 01/12/22 13:20 AB (Rec: 01/12/22 14:02 AB [email or web address]) Subjective Physical Therapy Visit Type Type Treatment Note Visit Start Time 13:20 Visit Stop Time 13:35 Total Visit Minutes 15 Notes pt on hold for PT this morning due to chest pain and echo was done. nurse stated that pt is feeling better and echo was normal. pt is cleared to do PT Number of REGIONAL MARKETING DIRECTOR Visits 0 Physical Therapy Visit Comments Patient Comments requesting to go back to bed M4 PT-IP Mobility and Gait Start: 01/10/22 12:35 Freq: NEEDED Status: Active Protocol: Document 01/12/22 13:20 AB (Rec: 01/12/22 14:02 AB [id number]) PT-Bed Mobility Assessment Supine to Sit Supine to Sit Minimal Assistance PT-Transfer Assessment Sit to and From Stand Sit to and from Stand Maximum Assistance,2 Person Assistance,Use of Upper Extremities Equipment Transfer Assistive Device Gait Belt,Front Wheeled Walker Orthotic/Prosthetic Devices or Brace: No Transfers Transfer Destination Bed Transfer Ability Level of Assist Maximum Assistance,1 Person Assistance,Use of Upper Extremities Comments Mobility Comments checked on pt and pt sitting on bedside commode. pt requesting to go back to bed. completed sit to stand from bedside commode x 2 and max cues and unable to tolerate standing with B knee giving out and has to sit back on bedside commode. positioned pt closer to bed. completed sit to stand again max A x 2 and pivot transfer using FWW max A x 2 to the bed. midway through transfer, pt stated that she cannot do anymore and unable to move LE, has to be assisted to position onto the bed max A x 2. completed sit to supine min A with LE. positioned pt in bed. call light and table placed within reach. HR: 120-124 with activity. M5 PT-IP Objective Assessments Start: 01/10/22 12:35 Freq: NEEDED Status: Active Protocol: Document 01/10/22 10:47 AB (Rec: 01/10/22 12:46 AB [id number]) Orientation Orientation/Cognition Level of Alertness Alert Orientation Name,Place,Situation Language Function Ability No Deficits Noted Safety Awareness Decreased Safety Awareness Memory Description No Deficits Noted Strength Lower Extremity Strength Assessment Bilaterally Impaired Hip 3+/5 Knee 3+/5 Sensation Assessment Sensation Gross Sensation WNL Muscle Tone Muscle Tone WNL Yes M6 PT-IP Treatment Start: 01/10/22 12:35 Freq: NEEDED Status: Active Protocol: Document 01/12/22 13:20 AB (Rec: 01/12/22 14:02 AB [id number]) Physical Therapy Treatment Education Education Provided Safety M7 PT-IP Assessment and Plan Start: 01/10/22 12:35 Freq: NEEDED Status: Active Protocol: Document 01/12/22 13:20 AB (Rec: 01/12/22 14:02 AB [email or web address]) PT Summary Assessment and Plan Potential Rehabilitation Potential Fair Summary Impairments Pain,ROM,Strength,Balance, Coordination,Sensation,Tone, Cognition,Bed Mobility, Transfers,Gait,Activity Tolerance Progress Towards Goals Slow Progress due to Medical Issues,Slow Progress due to Activity Tolerance Assessment Summary pt requiring max A x 2 and max cues and unable to ambulate. continues to have decrease activity tolerance affecting mobility. pt will require SNF rehab to improve strength and function. Goals Bed Mobility Goal Standby Assistance Transfer Goal Standby Assistance,Front Wheeled Walker Gait Goal Standby Assistance,Front Wheel Walker Gait Distance 50 Other Goals improve ambulation using 4WW 100 ft SBA Days to Meet Goals 10 Frequency of Treatment Frequency Of Treatment Once a Day Treatment Plan Physical Therapy Treatment Plan Bed Mobility Training,Transfer Training,Gait Training, Therapeutic Exercise,Balance Retraining,Discharge Planning, Hot or Cold Pack,Neuromuscular Re-ed,Coordination Retraining Recommendations To Nursing Amount of Assist Needed 1 Person Assist Discharge Recommendations PT Discharge Recommendations SNF Rehab Transportation Needs at Discharge Wheelchair/Cabulance
[2022-01-12] MEDS: CYCLOBENZAPRINE 10 MG TABLET 5 MG PO (21:50)
[2022-01-12] MEDS: polyethylene glycoL 3350 17 GM POWD.PACK PO (21:50)
[2022-01-13] VITALS (15 sets, daily range): BP systolic 98–150; BP diastolic 42–88; PULSE 86–128; RESP 18–21; TEMP 36.8–37.4; O2SAT 90–99
--- NOTE | 2022-01-13 00:09 | PC.NURSE ---
Addendum entered by Sadia Hodge R.N. 01/13/22 06:47: 0645- Patient titrated down to [address] Quiroz updated on patient need for oxygen and her rate issue. No orders recieved. Addendum entered by Sadia Hodge R.N. 01/13/22 05:52: 0530- Patient assisted to [facility], she did not have a BM but is passing gas. Patient has been sleeping very soundly and this AM awakened disoriented. Patient took several minutes to reorient. Saturation on room air was 87% but this is consistent with her elevated heart rate which rises to 115-120 with any exertion. Patient remains on 3 liter cannula will titrate off as heart rate decreases. Medicated per order with rate control medication. Lungs remain clear with fine bibasilar crackles unchanged from baseline. No increase edema noted. Patient had only one dose of pain medication through the night but states she is comfortable. Will monitor. Original Note: 2330- Patient sleeping very soundly, arousable but drifts back to sleep. Saturations dropping placed on 3 liter cannula. Saturation improved. Heart rate elevated 114 sinus tachycardia with PAC's. Medicated per order. Will monitor.
[2022-01-13] MEDS: PANTOPRAZOLE DR 40 MG TABLET PO (05:42)
[2022-01-13] MEDS: dilTIAZem 30 MG TABLET PO ×3 (05:42→23:59)
[2022-01-13] MEDS: CHOLECALCIFEROL (VITAMIN D3) 1,000 UNIT TABLET 2000 UNIT PO (08:22)
[2022-01-13] MEDS: APIXABAN 5 MG TABLET 2.5 MG PO ×2 (08:22→20:36)
[2022-01-13] MEDS: FUROSEMIDE 20 MG TABLET PO (08:26)
--- NOTE | 2022-01-13 10:12 | CM.DPC ---
Addendum entered by Coreen Anguiano R.N. 01/13/22 14:24: Spoke to Stephanie, she is internet marketing executive at [facility]. Patient had bedside assessment yesterday. She is updated, that patient is two person max assist, and she stated, she feels that it would benefit patient to go to [facility] first, before going to their facility. She stated that she will update [id number] as well. Stephanie is familiar with Pricilla at [facility], patients have gone to her facility after skilled. Addendum entered by Coreen Anguiano R.N. 01/13/22 11:35: Spoke to Tori Alavrez, and Wang Delgadillo, and they did work with patient but she is a max assist. They both do recommend residential. When patient was put back to bed, she just had some emesis. Addendum entered by Croeen Anguiano R.N. 01/13/22 10:38: Pricilla at [facility] called back and indicated, she did not have a nurse for Friday admission, but was informed that patient was not medically ready yesterday, and could not yet work with P.T. Let Pricilla know that patient is medically ready now, and she will plan on taking patient tomorrow. She will send a message to [employer] [facility] today. Confirmed that patient is max assist of two, and will most likely need skilled before assisted living, per physical therapy. Original Note: DCP Cont: Discussed patient during team rounds, patient is medically ready to discharge, but no facilities can accept until tomorrow. This DC capacity planner had indicated on Friday, that [facility] at [facility] was working on getting a nurse to come in Friday to see if they could admit, but there were no updated notes to indicate if she was able to. There is a note from MONIQUE Harrington, that [facility], did a bedside assessment yesterday at 1630, but indicated patient needed to be medically stable. Called [facility], and left a message with Pricilla that patient will need to be discharged tomorrow, and to confirm that they can accept tomorrow. Left a message with [facility] as well. [facility] may also be able to accept tomorrow as well. [facility] is having staff at facilities to do week-end admissions. P: DCP to continue to follow. Checked in with Lauren at [facility] as well, and she will review for tomorrow. Coreen Anguiano RN/Salesperson [employer]
[2022-01-13] MEDS: polyethylene glycoL 3350 17 GM POWD.PACK PO (10:18)
[2022-01-13] MEDS: ONDANSETRON 4 MG/2 ML INJ IV (10:31)
--- NOTE | 2022-01-13 10:32 | OT.IP.TRT ---
Current Diagnoses Unspecified atrial fibrillation (01/09/22) Occupational Therapy Treatment Note M2 OT-IP Current Condition Start: 01/10/22 12:55 Freq: Status: Active Protocol: Document 01/12/22 09:17 [facility] (Rec: 01/12/22 10:33 [facility] [id number]) Occupational Therapy Current Condition Current Condition Evaluation Date 01/12/22 Treatment Diagnosis A-fib RVR Diagnosis Onset Date 01/09/22 M3 OT- IP Subjective and Pain Start: 01/10/22 12:55 Freq: Status: Active Protocol: Document 01/13/22 11:39 [facility] (Rec: 01/13/22 11:46 [facility] [id number]) OT- Subjective Occupational Therapy Visit Type Type Progress Note Visit Start Time 10:19 Visit Stop Time 10:32 Total Visit Minutes 13 Notes co-treat with P.T. as pt is a max x 2 Occupational Therapy Visit Comments Patient Comments I feel very nausated. OT Pain Assessment Pain When Pain Assessed At Rest Pain Present Pain Present Denied Pain M4 OT- IP ADL's Start: 01/10/22 12:55 Freq: Status: Active Protocol: Document 01/13/22 11:39 [facility] (Rec: 01/13/22 11:46 [facility] [id number]) OT [id number] Comments OT Self-Feeding Comments not performed OT ADL-Grooming General Evaluation Grooming Ability Standby Assistance Areas Needing Assistance Retrieving/Set-up of Grooming Items,Face Washing Comments OT Grooming Comments pt able to wipe face after vomiting when provided with cloth. OT ADL-Oral Care Comments Oral Care Comments not performed OT ADL-Dressing General Eval Upper Body Dressing Ability Maximum Assistance,Total Assistance Comments OT Dressing Comments donned clean gown with max to total assist. OT ADL-Toileting General Evaluation Toileting Ability Total Assistance Areas Needing Assistance Perform Perineal Hygiene Comments OT Toileting Comments Pt with osei and was sitting on BSC tryoing to have BM. Pt did not void but was assisted with back pericare for cleanliness. OT ADL-Bathing Comments OT Bathing Comments not performed M5 OT- IP IADL's Start: 01/10/22 12:55 Freq: Status: Active Protocol: Document 01/12/22 09:17 [facility] (Rec: 01/12/22 10:33 [facility] [id number]) OT-Instrumental Activities of Daily Living Home Safety Awareness Home Safety Comments Pt a bit forgetful and would need assist for all needs of safety, ADl's and mobility at this time. M6 OT- IP Functional Cognition Start: 01/10/22 12:55 Freq: Status: Active Protocol: Document 01/12/22 09:17 [facility] (Rec: 01/12/22 10:33 [facility] [id number]) Cognitive Factors Limiting Selfcare Function Cognitive Ability Level of Alertness Alert Patient Orientation Name,Place,Situation Attention Span Ability Capable of Focused Attention, Capable of Sustained Attention Ability to Follow Commands Able to Follow One Step Commands with Increased Time, Able to Follow One Step Commands with Repetition Memory Description Short Term Impaired Cognitive Comments Cognitive Assessment Comments Pt a bit forgetful and needing step by step cues for safety with FWW. OT- Vision and Hearing OT- Hearing Assessment OT- Hearing Assessment WFL OT- Vision Assessment Visual Acuity Glasses All The Time M7 OT- IP Mobility and Balance Start: 01/10/22 12:55 Freq: Status: Active Protocol: Document 01/13/22 11:39 CGR (Rec: 01/13/22 11:46 [facility] [id number]) OT- Bed Mobility Assessment Rolling Type of Rolling Roll to Right Level of Assistance Standby Assistance Sit to Supine Sit to Supine Assist Maximum Assistance,2 Person Assistance Scooting Scooting to Edge of Bed Maximum Assistance,2 Person Assistance OT-Transfer Assessment Sit to and From Stand Sit to and from Stand Maximum Assistance,2 Person Assistance Transfers Transfer Ability Maximum Assistance,2 Person Assistance Technique Transfer Destination Bed,Bedside Commode Transfer Technique Stand Step Pivot Devices Transfer Assistive Devices Gait Belt,Front Wheeled Walker Comments Mobility Comments Pt needed max x 2 for sit to stand and for transfer. Posture is signifiantly hunched and leans heavy to the right in sitting. Max x 2 d/t unsafe transfer vs heavy lift . OT- Gait Assessment Comments Gait Ability Comments not performed OT- Balance Assessment Sitting Balance and Reactions Static Sitting Balance Ability Poor Dynamic Sitting Balance Ability Poor M8 OT- IP Objective Assessments Start: 01/10/22 12:55 Freq: Status: Active Protocol: Document 01/12/22 09:17 [facility] (Rec: 01/12/22 10:33 [facility] [id number]) OT Gross Range of Motion Upper Extremity Range of Motion Assessment Bilaterally Impaired OT Strength Upper Extremity Strength Assessment Bilaterally Impaired OT- Coordination Assessment Comments Coordination Comments Pt has arthritic change in her hands and needing asisst for set-up for ADl needs. OT-Muscle Tone Assessment Muscle Tone WNL Yes M9 OT- IP Assessment and Plan Start: 01/10/22 12:55 Freq: Status: Active Protocol: Document 01/13/22 11:39 [facility] (Rec: 01/13/22 11:46 [facility] [id number]) OT Summary Assessment and Plan Potential Rehabilitation Potential Good Analytic Complexity at Evaluation Moderate Summary OT Impairments Pain,Range of Motion,Strength, Balance,Functional Cognition, Functional Mobility,Self- Feeding,Grooming,Dressing, Toileting,Bathing,Toilet Transfers,Shower Transfers, Activity Tolerance Progress Towards Goals Slow Progress due to Pain,Slow Progress due to Medical Issues,Slow Progress due to Activity Tolerance,Slow Progress due to Cognition Assessment Summary Pt MOD complexity and main barriers are decreased activity tolerance, balance, and now needing assist 1-2 person assist for all ADl and mobility needs. Pt nauseated and fatigued when therapy entered. Pt did vomit requiring max a for cleaning up gown etc. Pt will benefit from SNF. Goals Dressing Goal Standby Assistance Toileting Goal Standby Assistance Bathing Goal Minimal Assistance Toilet Transfer Goal Independent Shower Transfer Goal Independent Days to Meet Goals 20 Frequency of Treatment Frequency Of Treatment Once a Day Treatment Plan OT Treatment Plan ADL Training,Functional Cognition Training,Functional Mobility,Patient/Family Education,Discharge Planning Other Treatment Recommendations and Next Transfer to [facility] with MODA x1 Treatment Focus and FWW. Discharge Recommendations OT Discharge Recommendations SNF Rehab Transportation Needs at Discharge Wheelchair/Cabulance
--- NOTE | 2022-01-13 10:33 | PT.IPTN ---
Current Diagnoses Unspecified atrial fibrillation (01/09/22) Physical Therapy Treatment Note M2 PT-IP Current Condition Start: 01/10/22 12:35 Freq: NEEDED Status: Active Protocol: Document 01/10/22 10:47 AB (Rec: 01/10/22 12:46 AB [id number]) Physical Therapy Current Condition Current Condition Evaluation Date 01/10/22 Treatment Diagnosis A-fib; difficulty in walking Onset Date 01/09/22 M3 PT-IP Subjective Start: 01/10/22 12:35 Freq: NEEDED Status: Active Protocol: Document 01/13/22 10:33 AW (Rec: 01/13/22 11:51 AW [id number]) Subjective Physical Therapy Visit Type Type Treatment Note Visit Start Time 10:19 Visit Stop Time 10:33 Total Visit Minutes 14 Notes Co-tx with OT due to high level of assist required Number of DESIGN TRANSFERRER Visits 0 Physical Therapy Visit Comments Patient Comments Pt on BSC, requesting return to bed M4 PT-IP Mobility and Gait Start: 01/10/22 12:35 Freq: NEEDED Status: Active Protocol: Document 01/13/22 10:33 AW (Rec: 01/13/22 11:51 AW [id number]) PT-Bed Mobility Assessment Sit to Supine Sit to Supine Moderate Assistance,2 Person Assistance PT-Transfer Assessment Sit to and From Stand Sit to and from Stand Maximum Assistance,2 Person Assistance Equipment Transfer Assistive Device Gait Belt,Front Wheeled Walker Orthotic/Prosthetic Devices or Brace: No Transfers Transfer Destination Bed Transfer Ability Level of Assist Maximum Assistance,2 Person Assistance,Use of Upper Extremities Comments Mobility Comments Pt was sitting on BSC with emesis bag as OT and PT arrived. She was ready to return to bed. Therapists assisted pt to clean herself up of emesis and to change her gown. Max 2 to stand and pivot transfer to the bed. Pt is impulsive and quite weak, requiring 2PA for safety. Max 2 for return to supine and min A to roll from left to right. PT placed pillows for R sidelying positioning and left pt with call light in reach, bed alarm on most sensitive setting. Gait Assessment Comments Gait Comments not performed PT-Balance Assessment Sitting Balance and Reactions Static Sitting Balance Ability Poor Dynamic Sitting Balance Ability Poor Standing Balance and Reactions Static Standing Balance Ability Poor Dynamic Standing Balance Ability Poor Device Used FWW Comments Other Balance Tests/Deviations/Treatment Pt has a difficult time : correcting severely flexed and right-leaning posture in sitting or standing. M5 PT-IP Objective Assessments Start: 01/10/22 12:35 Freq: NEEDED Status: Active Protocol: Document 01/10/22 10:47 AB (Rec: 01/10/22 12:46 AB [id number]) Orientation Orientation/Cognition Level of Alertness Alert Orientation Name,Place,Situation Language Function Ability No Deficits Noted Safety Awareness Decreased Safety Awareness Memory Description No Deficits Noted Strength Lower Extremity Strength Assessment Bilaterally Impaired Hip 3+/5 Knee 3+/5 Sensation Assessment Sensation Gross Sensation WNL Muscle Tone Muscle Tone WNL Yes M6 PT-IP Treatment Start: 01/10/22 12:35 Freq: NEEDED Status: Active Protocol: Document 01/13/22 10:33 AW (Rec: 01/13/22 11:51 AW [id number]) Physical Therapy Treatment Education Education Provided Safety M7 PT-IP Assessment and Plan Start: 01/10/22 12:35 Freq: NEEDED Status: Active Protocol: Document 01/13/22 10:33 AW (Rec: 01/13/22 11:51 AW [id number]) PT Summary Assessment and Plan Potential Rehabilitation Potential Fair Summary Impairments Pain,ROM,Strength,Balance, Coordination,Sensation,Tone, Cognition,Bed Mobility, Transfers,Gait,Activity Tolerance Progress Towards Goals Slow Progress due to Medical Issues,Slow Progress due to Activity Tolerance Assessment Summary Pt continues to require max A x 2 for safe transfers and has increasingly poor postural control. Nausea, weakness, and severely decreased activity tolerance affect mobility and pt will require SNF rehab. Goals Bed Mobility Goal Standby Assistance Transfer Goal Standby Assistance,Front Wheeled Walker Gait Goal Standby Assistance,Front Wheel Walker Gait Distance 50 Other Goals improve ambulation using 4WW 100 ft SBA Days to Meet Goals 10 Frequency of Treatment Frequency Of Treatment Once a Day Treatment Plan Physical Therapy Treatment Plan Bed Mobility Training,Transfer Training,Gait Training, Therapeutic Exercise,Balance Retraining,Discharge Planning, Hot or Cold Pack,Neuromuscular Re-ed,Coordination Retraining Recommendations To Nursing Amount of Assist Needed 2 Person Assist Discharge Recommendations PT Discharge Recommendations SNF Rehab Transportation Needs at Discharge Wheelchair/Cabulance
[2022-01-13 10:45] LABS: Hematocrit 35.1 % (36-46); Hemoglobin 11.4 g/dL (12.0-16.0); Mean Corpuscular HGB Conc 32.4 % (30-36); Mean Corpuscular Hemoglobin 31.7 PG (26-34); Mean Corpuscular Volume 98.1 fL (80-100); Platelet Count 331 X10^3/uL (150-400); Red Blood Cell Count 3.58 X10^6/uL (4.0-5.2); Red Cell Distribution Width 14.6 % (11.6-14.8); White Blood Cell Count 22.1 X10^3/uL (4.5-11.0)
[2022-01-13 10:59] LABS: Alanine Aminotransferase 12 IU/L (<35); Albumin 3.4 g/dL (3.5-5.0); Albumin Globulin Ratio 1.3 (1.0-2.8); Alkaline Phosphatase 77 U/L (38-126); Aspartate Aminotransferase 23 IU/L (14-36); BUN Creatinine Ratio 16.7 (6-22); Bilirubin Total 0.9 mg/dL (0.2-1.3); Blood Urea Nitrogen 9 mg/dL (7-17); Carbon Dioxide 28 mmol/L (22-32); Chloride 94 mmol/L (98-107); Estimated Glomerular Filt Rate > 60 mL/min (>60); Globulin 2.7 g/dL (1.7-4.1); Glucose 132 mg/dL (80-110); HEMOLYSIS < 15 (0-50); Potassium 3.8 mmol/L (3.4-5.1); Sodium 128 mmol/L (137-145); Total Protein 6.1 g/dL (6.3-8.2)
--- NOTE | 2022-01-13 11:47 | DI.RAD.S_ITS ---
PROCEDURE: XR CHEST 1V INDICATIONS: sob, pna? TECHNIQUE: One view of the chest was acquired. COMPARISON: [facility], CR, XR CHEST 1V, 01/09/2022, 13:23. FINDINGS: Surgical changes and devices: None. Lungs and pleura: Mild patchy bilateral perihilar and basilar airspace opacities. No pleural effusions or pneumothorax. Mediastinum: Mediastinal contours appear normal. Heart size is normal. Bones and chest wall: No suspicious bony lesions. Overlying soft tissues appear unremarkable. IMPRESSION: Mild bilateral pneumonia. Continued plain film surveillance is recommended to ensure resolution, and to exclude underlying or central malignancy. Dictated by: Jose Enrique Costa M.D. on 01/13/2022 at 13:18 Approved by: Jose Enrique Costa M.D. on 01/13/2022 at 13:19
--- NOTE | 2022-01-13 12:44 | PC.NURSE ---
Patient moved to room 216, report given to MARIA FERNANDA Reaves. Patient A/Ox4 with occasional forgetfulness. Patient did finally have large BM, also experienced rectal prolapse. Dr. Crabtree at bedside able to push tissue back in. UA and cxr ordered due to increase in WBCs.
[2022-01-13 13:09] LABS: Appearance Urine UA CLEAR; Bilirubin Urine UA NEGATIVE (NEGATIVE); Color Urine UA YELLOW; Glucose Urine UA NEGATIVE (Negative); Ketones Urine UA NEGATIVE (NEGATIVE); Leukocyte Esterase Urine UA NEGATIVE (NEGATIVE); Nitrite Urine UA NEGATIVE (Negative); Occult Blood Urine UA 3+ (Negative); Protein Urine UA NEGATIVE (Negative); Urobilinogen Urine UA 0.2 E.U./dL (0.2)
[2022-01-13 13:16] LABS: Bacteria Urine None Seen; Culture Indicated Urine Cult Not Indicated; RBC Urine 1-5/HPF (0-5/HPF); Squamous Epithelial Cell Urine 0-1 /HPF (0-5/HPF); WBC Urine 0-1/HPF (0-5/HPF)
[2022-01-13] MEDS: dilTIAZem 30 MG TABLET 60 MG PO (13:39)
[2022-01-13] MEDS: DOCUSATE 100 MG CAPSULE PO (13:39)
[2022-01-13] MEDS: PSYLLIUM HUSK 1 PACKET PO (13:39)
[2022-01-13] MEDS: PIPERACILLIN/TAZO 3.375 GM in SODIUM CHLORIDE 0.9% 100 ML 25 ML IV ×2 (14:41→20:37)
--- NOTE | 2022-01-13 15:56 | PM.PN.1 ---
Subjective Subjective Date Patient Seen: 01/13/22 Time Patient Seen: 08:00 Interval history: Today she had shortness of breath. She has been constipated, after bowel movement today had significant rectal prolapse. No abdominal pain or rectal pain. Exam Vital Signs (past 8 hours): - 01/13/22 08:00 01/13/22 11:29 01/13/22 13:39 Temperature 98.2 F Pulse Rate 112 H 108 H Respiratory Rate 20 Blood Pressure 121/76 108/88 Pulse Oximetry 90 L 93 01/13/22 13:46 Temperature 98.7 F Pulse Rate 100 H Respiratory Rate 18 Blood Pressure 108/88 Pulse Oximetry 99 Oxygen Delivery Method Room Air Oxygen Flow Rate 0 Narrative Exam Narrative: GEN: pleasant, confused, no acute distress CV: irregular, irregular PULM: coarse breath sounds bilaterally Rectal: reducible rectal prolapse Objective Labs Result Diagrams: 01/13/22 10:35 01/13/22 10:35 Labs: Laboratory Results - last 24 hr 01/13/22 01/13/22 01/13/22 10:35 10:35 12:39 WBC 22.1 H RBC 3.58 L Hgb 11.4 L Hct 35.1 L MCV 98.1 MCH 31.7 MCHC 32.4 RDW 14.6 Plt Count 331 Sodium 128 L Potassium 3.8 Chloride 94 L Carbon Dioxide 28 BUN 9 Creatinine 0.54 Estimated GFR > 60 BUN/Creatinine Ratio 16.7 Glucose 132 H Calcium 9.0 Total Bilirubin 0.9 AST 23 ALT 12 Alkaline Phosphatase 77 Total Protein 6.1 L Albumin 3.4 L Globulin 2.7 Albumin/Globulin Ratio 1.3 Urine Color Yellow Urine Appearance Clear Urine pH 5.0 Ur Specific [facility] 1.020 Urine Protein Negative Urine Glucose (UA) Negative Urine Ketones Negative Urine Occult Blood 3+ H Urine Nitrate Negative Urine Bilirubin Negative Urine Urobilinogen 0.2 Ur Leukocyte Esterase Negative Urine RBC 1-5/hpf Urine WBC 0-1/hpf Ur Squamous Epith Cells 0-1 /hpf Urine Bacteria None seen Ur Culture Indicated? Cult not indicated PFSH Medical History (Updated 01/09/22 @ 23:07 by Jean Contreras MD) GERD (gastroesophageal reflux disease) Peripheral edema Rheumatoid arthritis Surgical History History of hand surgery History of total left knee replacement History of total right knee replacement Status post total hip replacement, left Status post wrist surgery Family History Mother No problems noted. Father No problems noted. Social History household members: spouse Smoking Status: Never smoker alcohol intake: current Assessment & Plan Assessment & Plan narrative: 1. Acute shortness of breath -xray appears to show pneumonia, WBC rising to 22 -ordered for IV antibiotics -lasix ordered overnight will DC for now given hyponatremia 2. Atrial fibrillation with RVR, chronic -continues to be slightly tachy in the 100s -increase diltiazem to 60mg q6 -continue eliquis 3. Rhematoid arthritis -no longer on prednisone or methotrexate 4. GERD -continue PPI 5. Osteoporosis -zoledronic acid 6. Hyponatremia, acute -possibly secondary to lasix -stop lasix and recheck in AM Time Spent With Patient Critical Care time: I spent a total of [] minutes of critical care time on this patient's care today; this time is exclusive of procedural time.
[2022-01-13] MEDS: GABAPENTIN 400 MG CAPSULE 800 MG PO (20:38)
[2022-01-14] VITALS (7 sets, daily range): BP systolic 100–107; BP diastolic 48–58; PULSE 78–93; RESP 14–18; TEMP 36.5–36.8; O2SAT 92–98
[2022-01-14] MEDS: PIPERACILLIN/TAZO 3.375 GM in SODIUM CHLORIDE 0.9% 100 ML 25 ML IV (04:40)
[2022-01-14] MEDS: dilTIAZem 30 MG TABLET PO ×2 (05:41→12:27)
[2022-01-14] MEDS: PANTOPRAZOLE DR 40 MG TABLET PO (05:41)
[2022-01-14 06:03] LABS: Hematocrit 30.2 % (36-46); Hemoglobin 10.1 g/dL (12.0-16.0); Mean Corpuscular HGB Conc 33.5 % (30-36); Mean Corpuscular Hemoglobin 32.2 PG (26-34); Mean Corpuscular Volume 96.3 fL (80-100); Platelet Count 266 X10^3/uL (150-400); Red Blood Cell Count 3.14 X10^6/uL (4.0-5.2); Red Cell Distribution Width 14.6 % (11.6-14.8); White Blood Cell Count 11.6 X10^3/uL (4.5-11.0)
[2022-01-14 06:13] LABS: BUN Creatinine Ratio 13.3 (6-22); Blood Urea Nitrogen 6 mg/dL (7-17); Carbon Dioxide 31 mmol/L (22-32); Chloride 93 mmol/L (98-107); Estimated Glomerular Filt Rate > 60 mL/min (>60); Glucose 84 mg/dL (80-110); HEMOLYSIS < 15 (0-50); Sodium 131 mmol/L (137-145)
[2022-01-14] MEDS: HYDROCODONE/ACET 10/325 TABLET 1 TAB PO ×2 (07:04→12:28)
[2022-01-14] MEDS: APIXABAN 5 MG TABLET 2.5 MG PO (08:33)
[2022-01-14] MEDS: CHOLECALCIFEROL (VITAMIN D3) 1,000 UNIT TABLET 2000 UNIT PO (08:33)
[2022-01-14] MEDS: GABAPENTIN 400 MG CAPSULE 800 MG PO (08:34)
--- NOTE | 2022-01-14 08:42 | CM.DPC ---
Addendum entered by Coreen Anguiano R.N. 01/14/22 10:44: Orders are completed for discharge today. Caregiver, Angelia, was in the room with patient and is aware. Kathy, fundraising assistant, is faxing orders and PASSR, DC Summary when completed, to [facility]. Updated charge nurse, Daniela, so she can update board. Patient is aware. Addendum entered by Coreen Anguiano R.N. 01/14/22 10:14: Pricilla from [facility] changed pick up truck driver time to 2:45. Let hospitalist know, for he is wanting to make sure that she is medically ready due to her elevated WBC. Addendum entered by Coreen Anguiano R.N. 01/14/22 08:48: Spoke to Dr. Crabtree, he is not sure if she will be ready as of yet for discharge. Updated caregiver, Angelia, will not cancel transport as of yet until more information is known during team rounds. Original Note: DCP Cont: Pricilla from [facility] left a message stating that they can pick up truck driver patient at 10:30. Have not been able to get in contact with hospitalist to let him know as of yet, but did notify nurse, Hyun, she will get COVID swab. Updated patient's , Azam, who is currently in [place], and Angelia, patient's caregiver. As soon as hospitalist is contacted, will have him write the orders, as long as she is medically stable for discharge. Left Pricilla a message at [facility] letting her know that as soon as the orders are completed, she will be faxed. P: DCP to work on getting discharge orders on patient for her to go to [facility] today. Coreen Anguiano RN/Care Analyst
--- NOTE | 2022-01-14 09:23 | PT.IPTN ---
Current Diagnoses Unspecified atrial fibrillation (01/09/22) Physical Therapy Treatment Note M2 PT-IP Current Condition Start: 01/10/22 12:35 Freq: NEEDED Status: Active Protocol: Document 01/10/22 10:47 AB (Rec: 01/10/22 12:46 AB [id number]) Physical Therapy Current Condition Current Condition Evaluation Date 01/10/22 Treatment Diagnosis A-fib; difficulty in walking Onset Date 01/09/22 M3 PT-IP Subjective Start: 01/10/22 12:35 Freq: NEEDED Status: Active Protocol: Document 01/14/22 09:23 AW (Rec: 01/14/22 10:32 AW [id number]) Subjective Physical Therapy Visit Type Type Treatment Note Visit Start Time 09:00 Visit Stop Time 09:23 Total Visit Minutes 23 Notes Co-tx with OT due to high level of assist required Number of CUT OUT STITCHER Visits 0 Physical Therapy Visit Comments Patient Comments I don't remember anything that happened yesterday. Therapy Pain Assessment Pain When Pain Assessed During Mobility Pain Present Pain Present Denied Pain M4 PT-IP Mobility and Gait Start: 01/10/22 12:35 Freq: NEEDED Status: Active Protocol: Document 01/14/22 09:23 AW (Rec: 01/14/22 10:32 AW [id number]) PT-Bed Mobility Assessment Supine to Sit Supine to Sit Contact Guard Assistance Scooting Scooting to Edge of Bed Minimal Assistance PT-Transfer Assessment Sit to and From Stand Sit to and from Stand Minimal Assistance,Moderate Assistance,1 Person Assistance ,Use of Upper Extremities Equipment Transfer Assistive Device Gait Belt,Front Wheeled Walker Orthotic/Prosthetic Devices or Brace: No Transfers Transfer Destination Chair,Bedside Commode Transfer Technique Stand Step Pivot Transfer Ability Level of Assist Minimal Assistance,Moderate Assistance,2 Person Assistance ,Use of Upper Extremities Comments Mobility Comments Pt was lying in bed as PT arrived. BP 95/51 HR 86. From flat bed, pt sat up EOB CGA. Min A to scoot toward EOB for feet on floor. Min A to stand from bed in lowest position. Pt used FWW and min A x 2 to step pivot transfer to chair 3 feet from the bed, sitting with poor control. BP 115/67 HR 97. Pt stated she needed the commode urgently. OT arrived. Mod A x1 to stand and mod A x 2 to transfer with FWW. Pt had a small liquid bowel movement. Mod A to stand with FWW as OT provided pericare. Mod A x 2 to transfer to the chair with FWW . Max A to scoot back on the chair. Pt was left with OT. Gait Assessment Gait Gait Assistance Required: Minimum Assistance,Moderate Assistance,2 Person Assist Distance (Feet) 3 Assistive Devices Assistive Device Gait Belt,Front Wheeled Walker Orthotic/Prosthetic Devices or Brace: No Gait Deviations General Gait Pattern Decreased Stride Length, Decreased Feet Clearance, Flexed Trunk Factors Limiting Gait Function Factors Limiting Gait Function Decreased Activity Tolerance, Decreased Strength,Difficulty Following Directions,Poor Balance,Poor Safety Awareness Comments Gait Comments Steps taken during transfers only. Pt stands and walks with increased ER bilateral hips and excessive pronation B feet . 2 person assist required due to weakness and poor safety awareness. PT-Balance Assessment Sitting Balance and Reactions Static Sitting Balance Ability Good Dynamic Sitting Balance Ability Fair Standing Balance and Reactions Static Standing Balance Ability Poor Dynamic Standing Balance Ability Poor Device Used FWW Comments Other Balance Tests/Deviations/Treatment Pt needs cues to extend hips : in initial standing for improved weight distribution/ COG over JESSE. M5 PT-IP Objective Assessments Start: 01/10/22 12:35 Freq: NEEDED Status: Active Protocol: Document 01/10/22 10:47 AB (Rec: 01/10/22 12:46 AB [id number]) Orientation Orientation/Cognition Level of Alertness Alert Orientation Name,Place,Situation Language Function Ability No Deficits Noted Safety Awareness Decreased Safety Awareness Memory Description No Deficits Noted Strength Lower Extremity Strength Assessment Bilaterally Impaired Hip 3+/5 Knee 3+/5 Sensation Assessment Sensation Gross Sensation WNL Muscle Tone Muscle Tone WNL Yes M6 PT-IP Treatment Start: 01/10/22 12:35 Freq: NEEDED Status: Active Protocol: Document 01/14/22 09:23 AW (Rec: 01/14/22 10:32 AW [id number]) Physical Therapy Treatment Education Education Provided Safety M7 PT-IP Assessment and Plan Start: 01/10/22 12:35 Freq: NEEDED Status: Active Protocol: Document 01/14/22 09:23 AW (Rec: 01/14/22 10:32 AW [id number]) PT Summary Assessment and Plan Potential Rehabilitation Potential Fair Summary Impairments Pain,ROM,Strength,Balance, Coordination,Sensation,Tone, Cognition,Bed Mobility, Transfers,Gait,Activity Tolerance Progress Towards Goals Slow Progress due to Medical Issues,Slow Progress due to Activity Tolerance Assessment Summary Mariely is more alert today and more engaged with therapy. Pt needs decreased level of assist today but continues to be safest with 2-person assist due to deficits in strength and safety awareness. Pt requires SNF rehab. Goals Bed Mobility Goal Standby Assistance Transfer Goal Standby Assistance,Front Wheeled Walker Gait Goal Standby Assistance,Front Wheel Walker Gait Distance 50 Other Goals improve ambulation using 4WW 100 ft SBA Days to Meet Goals 10 Frequency of Treatment Frequency Of Treatment Once a Day Treatment Plan Physical Therapy Treatment Plan Bed Mobility Training,Transfer Training,Gait Training, Therapeutic Exercise,Balance Retraining,Discharge Planning, Hot or Cold Pack,Neuromuscular Re-ed,Coordination Retraining Recommendations To Nursing Amount of Assist Needed 2 Person Assist Discharge Recommendations PT Discharge Recommendations SNF Rehab Transportation Needs at Discharge Wheelchair/Cabulance
--- NOTE | 2022-01-14 09:32 | OT.IP.TRT ---
Current Diagnoses Unspecified atrial fibrillation (01/09/22) Occupational Therapy Treatment Note M2 OT-IP Current Condition Start: 01/10/22 12:55 Freq: Status: Active Protocol: Document 01/12/22 09:17 [facility] (Rec: 01/12/22 10:33 [facility] [id number]) Occupational Therapy Current Condition Current Condition Evaluation Date 01/12/22 Treatment Diagnosis A-fib RVR Diagnosis Onset Date 01/09/22 M3 OT- IP Subjective and Pain Start: 01/10/22 12:55 Freq: Status: Active Protocol: Document 01/14/22 14:30 CGR (Rec: 01/14/22 14:46 CGR [id number]) OT- Subjective Occupational Therapy Visit Type Type Progress Note Visit Start Time 09:03 Visit Stop Time 09:32 Total Visit Minutes 29 Notes Partial co-treat with P.T. OT Pain Assessment Pain When Pain Assessed At Rest Pain Present Pain Present Denied Pain M4 OT- IP ADL's Start: 01/10/22 12:55 Freq: Status: Active Protocol: Document 01/14/22 14:30 CGR (Rec: 01/14/22 14:46 CGR [id number]) OT [id number] Comments OT Self-Feeding Comments not meal time OT ADL-Grooming General Evaluation Grooming Ability Standby Assistance Areas Needing Assistance Combing/Brushing Hair,Face Washing Comments OT Grooming Comments seated in chair OT ADL-Oral Care General Eval Oral Care Ability Standby Assistance Areas of Assistance Brushing Teeth,Retrieving/Set- Up of Items Comments Oral Care Comments seated in chair OT ADL-Dressing General Eval Lower Body Dressing Ability Total Assistance Areas Needing Assistance Underpants/Brief OT ADL-Toileting General Evaluation Toileting Ability Total Assistance Areas Needing Assistance Manage Clothing,Perform Perineal Hygiene Comments OT Toileting Comments Pt had small liquid BM seated on BSC. Need total assist for managing clothing and performing pericare. OT ADL-Bathing Comments OT Bathing Comments not performed M5 OT- IP IADL's Start: 01/10/22 12:55 Freq: Status: Active Protocol: Document 01/12/22 09:17 [facility] (Rec: 01/12/22 10:33 [facility] [id number]) OT-Instrumental Activities of Daily Living Home Safety Awareness Home Safety Comments Pt a bit forgetful and would need assist for all needs of safety, ADl's and mobility at this time. M6 OT- IP Functional Cognition Start: 01/10/22 12:55 Freq: Status: Active Protocol: Document 01/12/22 09:17 [facility] (Rec: 01/12/22 10:33 [facility] [id number]) Cognitive Factors Limiting Selfcare Function Cognitive Ability Level of Alertness Alert Patient Orientation Name,Place,Situation Attention Span Ability Capable of Focused Attention, Capable of Sustained Attention Ability to Follow Commands Able to Follow One Step Commands with Increased Time, Able to Follow One Step Commands with Repetition Memory Description Short Term Impaired Cognitive Comments Cognitive Assessment Comments Pt a bit forgetful and needing step by step cues for safety with FWW. OT- Vision and Hearing OT- Hearing Assessment OT- Hearing Assessment WFL OT- Vision Assessment Visual Acuity Glasses All The Time M7 OT- IP Mobility and Balance Start: 01/10/22 12:55 Freq: Status: Active Protocol: Document 01/14/22 14:30 CGR (Rec: 01/14/22 14:46 CGR [id number]) OT- Bed Mobility Assessment Supine to Sit Supine to Sit Assist Contact Guard Assistance Scooting Scooting to Edge of Bed Contact Guard Assistance, Minimal Assistance OT-Transfer Assessment Sit to and From Stand Sit to and from Stand Minimal Assistance,Moderate Assistance Transfers Transfer Ability Minimal Assistance,Moderate Assistance Technique Transfer Destination Bed,Bedside Commode,Chair Transfer Technique Stand Step Pivot Devices Transfer Assistive Devices Gait Belt,Front Wheeled Walker Comments Mobility Comments Pt performed initial sit to stand from bed with min a and transfered to chair. Pt then requesting [place] [facility] [place] needed mod a for that transfer . Pt was able to transfer back to chair with min a. OT- Gait Assessment Comments Gait Ability Comments transfers only on this date. OT- Balance Assessment Sitting Balance and Reactions Static Sitting Balance Ability Fair Dynamic Sitting Balance Ability Fair M8 OT- IP Objective Assessments Start: 01/10/22 12:55 Freq: Status: Active Protocol: Document 01/12/22 09:17 [facility] (Rec: 01/12/22 10:33 [facility] [id number]) OT Gross Range of Motion Upper Extremity Range of Motion Assessment Bilaterally Impaired OT Strength Upper Extremity Strength Assessment Bilaterally Impaired OT- Coordination Assessment Comments Coordination Comments Pt has arthritic change in her hands and needing asisst for set-up for ADl needs. OT-Muscle Tone Assessment Muscle Tone WNL Yes M9 OT- IP Assessment and Plan Start: 01/10/22 12:55 Freq: Status: Active Protocol: Document 01/14/22 14:30 CGR (Rec: 01/14/22 14:46 CGR [id number]) OT Summary Assessment and Plan Potential Rehabilitation Potential Good Analytic Complexity at Evaluation Moderate Summary OT Impairments Pain,Range of Motion,Strength, Balance,Functional Cognition, Functional Mobility,Self- Feeding,Grooming,Dressing, Toileting,Bathing,Toilet Transfers,Shower Transfers, Activity Tolerance Progress Towards Goals Slow Progress due to Pain,Slow Progress due to Medical Issues,Slow Progress due to Activity Tolerance,Slow Progress due to Cognition Assessment Summary Pt appears significantly improved on this date. Pt states that she does not remember yesterdays session with this automobile service writer. Pt with improved mobility but still needing significant assist. Pt will benefit from SNF upon discharge. Goals Dressing Goal Standby Assistance Toileting Goal Standby Assistance Bathing Goal Minimal Assistance Toilet Transfer Goal Independent Shower Transfer Goal Independent Days to Meet Goals 20 Frequency of Treatment Frequency Of Treatment Once a Day Treatment Plan OT Treatment Plan ADL Training,Functional Cognition Training,Functional Mobility,Patient/Family Education,Discharge Planning Other Treatment Recommendations and Next [place] [facility] [place] MODA x1 Treatment Focus and FWW. Discharge Recommendations OT Discharge Recommendations SNF Rehab Transportation Needs at Discharge Wheelchair/Cabulance
[2022-01-14 09:49] LABS: COVID19 -Nasal RAPID Negative (Negative)
--- NOTE | 2022-01-14 10:38 | PM.DS.1 ---
History of Present Illness History of Present Illness Chief complaint: Weakness,recently here for cystitis,D/C 12/28/21 Narrative: Per admitting provider: 81yo female with a hx of rheumatoid arthritis not on current therapy that presents with feeling dizzy and SOB. The patient states this started earlier today. Her caregiver was preparing the patient to go see her PCP when this occurred. The patient reports palpitations at this time, too, and had to take a seat to catch her breath. She felt better after sitting down. She denies that this has happened before. She denies CP at that time, paresthesias, back pain, diaphoresis, nausea, or LOC. She denies recent falls or trauma. The patient was recently discharged for intractable n/v. Her home prednisone was resumed for a few days afterward and patient felt better with that. She followed-up with the physician who had been managing her methotrexate and prednisone. Patient states that they decided to not continue said meds. She denies any issues with n/v in the interim. The patient denies ever having a fib before. She denies any hx of TIA's or CVA's. She denies any relevant family history. She denies ever smoking tobacco and denies regular EtOH consumption or recent use. She is requesting PT/OT as she believes she's too deconditioned to go back home and is amenable to placement. Discharge Providers Provider Date of admission: 01/09/22 14:08 Discharge Date: 01/14/22 Primary care physician: Alen Garsia MD Consults: 01/09/22 14:46 Consult to [facility] [employer] Technician Routine Comment: please call spouse MARCEL before d/c 01/09/22 16:05 Consult to Dietitian, Adult Routine Comment: Reason For Exam: low BMI Consult to Occupational Therapy Evaluate & Treat Comment: Physician Instructions: Evaluate and treat Consult to Physical Therapy Evaluate & Treat Comment: Physician Instructions: Evaluate and Treat Discharge provider: Hunter Crabtree MD Summary Hospital Course Discharge Diagnosis: 1. Chronic Afib, with RVR 2. Pneumonia 3. Rectal prolapse 4. Rheumatoid arthritis 5. GERD 6. Osteoporosis 7. Hyponatremia Hospital Course: Ms. Man initially came in to the hospital with dizziness and shortness of breath. She was in afib with RVR. She was initially in ICU on diltiazem which was switched to oral medications. ECHO showed a preserved EF. She also developed a pneumonia with WBC elevated to 22, which improved to 11 on discharged with antibiotics. She was discharged with levofloxacin. She had a reducible rectal prolapse. She developed mild hyponatremia when given lasix for presumed fluid overload due to afib. On day of discharge she felt much improved and was discharged to SNF for PT/OT. Exam Vital Signs (past 8 hours): - 01/14/22 03:00 01/14/22 05:35 01/14/22 05:41 Temperature 97.7 F Pulse Rate 78 Respiratory Rate 14 Blood Pressure 107/56 L 107/56 L Pulse Oximetry 96 98 01/14/22 07:00 Temperature 98.2 F Pulse Rate 78 Respiratory Rate 18 Blood Pressure 100/48 L Pulse Oximetry 93 Oxygen Delivery Method Room Air Oxygen Flow Rate 2 Narrative Exam Narrative: GEN: pleasant, no acute distress CV: irregular, irregular PULM: clear bilaterally ABD: soft, nontender, nondistended, no organomegaly Objective Labs Result Diagrams: 01/14/22 05:50 01/14/22 05:50 Labs: Laboratory Results - last 24 hr 01/13/22 01/13/22 01/13/22 10:35 10:35 12:39 WBC 22.1 H RBC 3.58 L Hgb 11.4 L Hct 35.1 L MCV 98.1 MCH 31.7 MCHC 32.4 RDW 14.6 Plt Count 331 Sodium 128 L Potassium 3.8 Chloride 94 L Carbon Dioxide 28 BUN 9 Creatinine 0.54 Estimated GFR > 60 BUN/Creatinine Ratio 16.7 Glucose 132 H Calcium 9.0 Total Bilirubin 0.9 AST 23 ALT 12 Alkaline Phosphatase 77 Total Protein 6.1 L Albumin 3.4 L Globulin 2.7 Albumin/Globulin Ratio 1.3 Urine Color Yellow Urine Appearance Clear Urine pH 5.0 Ur Specific [place] 1.020 Urine Protein Negative Urine Glucose (UA) Negative Urine Ketones Negative Urine Occult Blood 3+ H Urine Nitrate Negative Urine Bilirubin Negative Urine Urobilinogen 0.2 Ur Leukocyte Esterase Negative Urine RBC 1-5/hpf Urine WBC 0-1/hpf Ur Squamous Epith Cells 0-1 /hpf Urine Bacteria None seen Ur Culture Indicated? Cult not indicated SARS-CoV-2 (PCR) 01/14/22 01/14/22 01/14/22 05:50 05:50 08:45 WBC 11.6 H RBC 3.14 L Hgb 10.1 L Hct 30.2 L MCV 96.3 MCH 32.2 MCHC 33.5 RDW 14.6 Plt Count 266 Sodium 131 L Potassium 3.0 L Chloride 93 L Carbon Dioxide 31 BUN 6 L Creatinine 0.45 L Estimated GFR > 60 BUN/Creatinine Ratio 13.3 Glucose 84 Calcium 8.0 L Total Bilirubin AST ALT Alkaline Phosphatase Total Protein Albumin Globulin Albumin/Globulin Ratio Urine Color Urine Appearance Urine pH Ur Specific [place] Urine Protein Urine Glucose (UA) Urine Ketones Urine Occult Blood Urine Nitrate Urine Bilirubin Urine Urobilinogen Ur Leukocyte Esterase Urine RBC Urine WBC Ur Squamous Epith Cells Urine Bacteria Ur Culture Indicated? SARS-CoV-2 (PCR) Negative [facility] Medical History (Updated 01/09/22 @ 23:07 by Jean Contreras MD) GERD (gastroesophageal reflux disease) Peripheral edema Rheumatoid arthritis Surgical History History of hand surgery History of total left knee replacement History of total right knee replacement Status post total hip replacement, left Status post wrist surgery Family History Mother No problems noted. Father No problems noted. Social History household members: spouse Smoking Status: Never smoker alcohol intake: current Discharge Plan Discharge Plan Patient Disposition: SNF Discharge orders & Medications Prescriptions: New Eliquis 5 mg Tablet 2.5 mg PO BID Qty: 30 0RF docusate sodium 100 mg Capsule 100 mg PO BID Qty: 30 0RF diltiazem HCl 30 mg Tablet 30 mg PO Q6HR Qty: 30 0RF polyethylene glycol 3350 17 gram Powder In Packet 17 gm PO DAILY PRN (Reason: Constipation) Qty: 30 0RF Metamucil Fiber Singles 3.4 gram Powder In Packet 1 packet PO DAILY Qty: 30 0RF sennosides [senna] 8.6 mg Tablet 8.6 mg PO BEDTIME Qty: 30 0RF levofloxacin 750 mg tablet 750 mg PO DAILY Qty: 4 0RF hydrocodone-acetaminophen 10-325 mg Tablet 1 tab PO Q4HR PRN (Reason: pain) Qty: 5 0RF Continued omeprazole 40 mg capsule,delayed release(DR/EC) 40 mg PO DAILY 0RF cholecalciferol (vitamin D3) [Vitamin D3] 2,000 unit Tablet 2,000 unit PO DAILY 0RF gabapentin 800 mg tablet 800 mg PO PRN PRN (Reason: Pain (Scale Score 4-6)) 0RF Label Comments: pt states that she takes this as needed and not every day, and she thinks her last dose was a few days ago prochlorperazine maleate 5 mg tablet 5 mg PO AC 0RF Label Comments: Take 1 tablet by mouth two times daily as needed. folic acid 800 mcg Tablet 0.8 mg PO DAILY 0RF metaxalone 800 mg tablet 800 mg PO BID PRN (Reason: Muscle Spasm) Qty: 5 0RF Label Comments: take 1 tablet by mouth three times a day as needed for muscle spasm Discontinued hydrocodone-acetaminophen 10-325 mg Tablet 1 tab PO Q4H PRN (Reason: Back Pain) Qty: 60 0RF zolpidem 10 mg tablet 10 mg PO BEDTIME 0RF Label Comments: TAKE ONE TABLET BY MOUTH AT BEDTIME Follow up/Referrals: Alen Garsia MD [Primary Care Provider] - Discharge Data Primary Care Provider: Alen Garsia
--- NOTE | 2022-01-14 15:13 | PC.NURSE ---
Pt is A&Ox3, she is afebrile, VSS on RA. She denies SOB. She c/o back pain much improved with PRN hydrocodone and scheduled gabapentin. She is ordered to have the sea dc'd this a.m. at 1030 a.m. She is cleared for discharge today HR controlled well on scheduled medications and she denies any palpitations, SOB or chest discomfort. Pt verbalizes understanding of discharge plan today and is in agreement with the plan to transfer to [facility]. COVID test sent and resulted negative. Pt transportation arrived at 1430 to transport patient via [facility]. RN called [facility] to give report and Left a VM. Will follow up this afternoon.
== END 2022-01-14 14:50 | DRG 308 ==
LOC: ED 14:07 → AC 14:24 → ICU 01-10 12:56 → AC 01-13 14:05 → ICU 01-13 14:05
PROVIDERS: Family Medicine; Internal Medicine; Admitting Provider Student in an Organized Health Care Education/Training Program; Emergency Provider Emergency Medicine; PCP Internal Medicine; Referring Provider Emergency Medicine; Visit Provider Student in an Organized Health Care Education/Training Program
DX: I48.20 Chronic atrial fibrillation, unspecified (principal); J18.9 Pneumonia, unspecified organism; I5A Non-ischemic myocardial injury (non-traumatic); E87.1 Hypo-osmolality and hyponatremia; K62.3 Rectal prolapse; K21.9 Gastro-esophageal reflux disease without esophagitis; M81.0 Age-related osteoporosis without current pathological fracture; Z20.822 Contact with and (suspected) exposure to COVID-19
CPT/HCPCS: 36415; 71045; 80048; 80053; 81001; 82550; 83690; 83735; 84100; 84484; 85025; 85027; 87635; 93005; 93306; 94760; 96365; 96376; 97162; 97166; 97530; 97535; 99284; 99291; C9803; J2405; J2543